=== PATIENT | male | born 1950 | race Caucasian/White ===

== ENCOUNTER 2017-01-13 05:22 | Inpatient (IN) | payer MEDICARE, OTHER ==
[2017-01-13 05:54] LABS: ADD MANUAL DIFF? NO
[2017-01-13 06:03] LABS: GRAN # 8.59 (1.4-6.5); HEMATOCRIT 39.2 % (42.0-52.0); LYMPH # 0.6 (1.2-3.4); LYMPH % 6.2 % (22.0-35.0); MEAN CELL VOLUME 93.3 fL (80.0-105.0); MEAN CORPUSCULAR HEMOGLOBIN 30.7 pg (25.0-35.0); MEAN CORPUSCULAR HGB CONC 32.9 g/dl (31.0-37.0); MEAN PLATELET VOLUME 12.8 fl (7.0-11.0); MONO % 10.1 % (1.0-6.0); PLATELET COUNT 144 10^3/uL (120.0-450.0); RED CELL DISTRIBUTION WIDTH 16.9 % (11.5-14.5); WHITE BLOOD COUNT 10.3 10^3/ul (4.5-11.0)
[2017-01-13 06:13] LABS: GRAN % 83.7 % (50.0-68.0)
--- NOTE | 2017-01-13 06:23 | ED PDOC ---
Arrival/HPI - General Historian: Patient - History of Present Illness Time/Duration: < week Severity Level: 8 Activities at Onset: Rest Context: Home <Mallory Gray - Last Filed: 01/13/17 07:08> <RoselynGuanaco Ruba - Last Filed: 01/13/17 11:28> - General Chief Complaint: Altered Mental Status Time Seen by Provider: 01/13/17 05:23 - History of Present Illness Narrative History of Present Illness (Text): 01/13/17 06:20 This is a 66Y M with PMH ESRD MWF, HTN, CAD s/p stents, HLD, DM, PUD came to ED for AMS, abdominal pain and vomiting x 2 days, The patient missed his dialysis on Monday due to the pain. His is at bedside who states the patient has been confused, having trouble finding his clothes. He complains of LUQ abdominal pain that does not radiate. He has been spitting up red tinged sputum and has nausea. He has not been able to eat for the past 2 days. He has been having chills and dysuria, but no fever, diarrhea, numbness/tingling. (Mallory Gray) Past Medical History - Provider Review Nursing Documentation Reviewed: Yes - Infectious Disease Hx of Infectious Diseases: None - Tetanus Immunization Tetanus Immunization: Unknown - Cardiac Hx Cardiac Disorders: Yes Hx Hypertension: Yes Other/Comment: stents - Pulmonary Hx Respiratory Disorders: Yes Hx Chronic Obstructive Pulmonary Disease (COPD): Yes - Neurological Hx Neurological Disorder: No - HEENT Hx HEENT Disorder: No (WEARS RX GLASSES) - Renal Hx Renal Disorder: Yes Date of Last Dialysis Treatment: 01/09/17 Hx Renal Failure: Yes - Endocrine/Metabolic Hx Endocrine Disorders: Yes Hx Diabetes Mellitus Type 2: Yes - Hematological/Oncological Hx Blood Disorders: No - Integumentary Hx Dermatological Disorder: No - Musculoskeletal/Rheumatological Hx Musculoskeletal Disorders: Yes Hx Falls: Yes Hx Unsteady Gait: Yes - Gastrointestinal Hx Gastrointestinal Disorders: Yes Hx Gastroesophageal Reflux: Yes - Genitourinary/Gynecological Hx Genitourinary Disorders: Yes (URINARY RETENTION,DYSURIA) Hx Prostate Problems: Yes (BPH) - Psychiatric Hx Emotional Abuse: No Hx Physical Abuse: No Hx Substance Use: No - Surgical History Hx Coronary Stent: Yes (X2) - Anesthesia Hx Anesthesia: Yes Hx Anesthesia Reactions: No Hx Malignant Hyperthermia: No - Suicidal Assessment Feels Threatened In Home Enviroment: No <JustinkevinDarshan rollinsMallory - Last Filed: 01/13/17 07:08> Family/Social History - Physician Review Nursing Documentation Reviewed: Yes Family/Social History: Hypertension Smoking Status: Former Smoker Hx Alcohol Use: No Hx Substance Use: No Hx Substance Use Treatment: No <Mallory Gray - Last Filed: 01/13/17 07:08> Allergies/Home Meds <Mallory Gray - Last Filed: 01/13/17 07:08> <RoselynGuanaco Ruba - Last Filed: 01/13/17 11:28> Allergies/Adverse Reactions: Allergies No Known Allergies Allergy (Verified 11/23/16 11:17) Home Medications: Home Meds Medication Instructions Recorded Confirmed Albuterol Sulfate [Albuterol Hfa] 0.09 mg IH QID 10/22/13 01/13/17 clonazePAM [Klonopin] 0.5 mg PO BID 08/18/14 01/13/17 Aspirin [Aspirin EC] 81 mg PO DAILY 11/27/14 01/13/17 Carvedilol [Coreg] 25 mg PO BID 11/27/14 01/13/17 Insulin Detemir [Levemir] 40 units SC HS 11/27/14 01/13/17 Isosorbide Mononitrate [Imdur] 60 mg PO DAILY 11/27/14 01/13/17 Tiotropium [Spiriva] 18 mcg IH DAILY 03/23/15 01/13/17 Lisinopril [Zestril] 20 mg PO DAILY 05/26/16 01/13/17 Calcium Acetate [Phoslo] 667 mg PO BID 06/29/16 01/13/17 Fluoxetine HCl [Fluoxetine HCl] 20 mg PO BID 06/29/16 01/13/17 Omeprazole [Omeprazole] 20 mg PO DAILY 06/29/16 01/13/17 Review of Systems - Physician Review All systems were reviewed & negative as marked: Yes - Review of Systems Constitutional: Other. absent: Fevers Eyes: Normal. absent: Vision Changes Respiratory: Normal. absent: SOB, Cough Cardiovascular: Normal. absent: Chest Pain, Palpitations Gastrointestinal: Abdominal Pain, Constipation, Nausea, Vomiting. absent: Diarrhea, Hematochezia, Hematemesis Genitourinary Male: Dysuria. absent: Frequency, Hematuria Musculoskeletal: Normal Skin: Normal Neurological: Normal. absent: Headache, Dizziness Endocrine: Normal Hemo/Lymphatic: Normal Psychiatric: Normal <Mallory Gray - Last Filed: 01/13/17 07:08> Physical Exam Vital Signs Reviewed: Yes Temperature: Afebrile Blood Pressure: Normal Pulse: Regular Respiratory Rate: Normal Appearance: Positive for: Well-Appearing, Non-Toxic, Comfortable Pain Distress: None Mental Status: Positive for: other (A&Ox2) - Systems Exam Head: Present: Atraumatic, Normocephalic Pupils: Present: PERRL Extroacular Muscles: Present: EOMI Conjunctiva: Present: Normal Mouth: Present: Moist Mucous Membranes Neck: Present: Normal Range of Motion Respiratory/Chest: Present: Clear to Auscultation, Good Air Exchange. No: Respiratory Distress, Accessory Muscle Use Cardiovascular: Present: Regular Rate and Rhythm, Normal S1, S2. No: Murmurs Abdomen: Present: Tenderness, Normal Bowel Sounds. No: Distention, Peritoneal Signs Back: Present: Normal Inspection Upper Extremity: Present: Normal Inspection. No: Cyanosis, Edema Lower Extremity: Present: Edema Neurological: Present: GCS=15, CN II-XII Intact, Speech Normal Skin: Present: Warm, Dry, Normal Color. No: Rashes Psychiatric: Present: Alert, Oriented x 3, Normal Insight, Normal Concentration <Mallory Gray - Last Filed: 01/13/17 07:08> Medical Decision Making Re-evaluation Time: 06:45 Reassessment Condition: Improved - EKG Interpretation Interpreted by ED Physician: Yes Type: 12 lead EKG - Transfer of Care Patient signed out to Dr:: Dr. Dempsey Pending Labs:: CMP, ammonia, lipase <Mallory Gray - Last Filed: 01/13/17 07:08> <Guanaco Dempsey - Last Filed: 01/13/17 11:28> ED Course and Treatment: 01/13/17 06:39 Impression: This is a 66Y M with PMH HTN, DM, CAD s/p stents, ESRD on MWF came to ED for AMS , LUQ abdominal pain and nausea. Patient noted to have blood tinged clear vomit. He missed dialysis on Monday and his reports he has been confused. He is noted to be A&O x 3. Differential Diagnosis: -- Peptic ulcer, uremia, gastritis Plan: -- CBC, CMP, Ammonia, Lipase, U/A, Urine Culture -- CXR -- Reglan -- Reassess and disposition Prior Visits: Notes and results from previous visits were reviewed. Progress Note: Patient was given Reglan. Now pain and nausea have improved. (Mallory Gray) Patient was signed out to me at change of shift pending labs and hemodialysis at 10am. Liver enzymes returned markedly elevated and elevated lipase, will send for abdominal US. Ordered Zosyn. 01/13/17 09:20 Chest X-ray: Creator : Aman Singletary MD FINDINGS: LUNGS:No active pulmonary disease. PLEURA:No significant pleural effusion identified, no pneumothorax apparent. CARDIOVASCULAR:Normal. OSSEOUS STRUCTURES:No significant abnormalities. VISUALIZED UPPER ABDOMEN:Normal. OTHER FINDINGS:None. IMPRESSION: No active disease. 01/13/17 09:30 Abdominal Ultrasound: Creator : Tej Dubon MD FINDINGS: LIVER: Measures 15.1 cm. Hepatopedal blood flow. Fatty infiltration manifest ultrasonographically as increased echogenicity of the liver parenchyma. No mass. No intrahepatic bile duct dilatation. GALLBLADDER:Unremarkable. No gallstones. COMMON BILE DUCT:Measures 5.8 mm. No stones. No dilatation. PANCREAS:Unremarkable as visualized. No mass. No ductal dilatation. RIGHT KIDNEY:Measures 3.1 x 7.1cm. Atrophic right kidney unchanged compared to the prior study. LEFT KIDNEY:Measures 3.7 x 6.6cm. Atrophic left kidney unchanged compared the prior study. SPLEEN:Normal in size and contour. No mass. AORTA:No aneurysmal dilatation. IVC:Unremarkable. OTHER FINDINGS:None. IMPRESSION: No acute findings related to/accounting for the clinical presentation. No significant interval change compared to the prior examination(s). Additional benign and/or incidental findings described above. Reviewed EKG shows, peaked T waves compared to previous EKG. Also with prolonged QTc and VT interval, ordered multiple medications for hyperkalemia. Prior to patient receiving, patient was ready to go to dialysis so will forego medications for dialysis, more definitive treatment for hyperkalemia. Provided Zosyn to dialysis unit to give with dialysis. Paged Dr. Agarwal for admission. 01/13/17 11:26 Dr. Agarwal accepts admission, recommends Dr. Tian for surgical consult for lab findings. Consult placed. Patient currently in dialysis unit. (Guanaco Dempsey) - Lab Interpretations Lab Results: 01/13/17 05:40 01/13/17 05:40 Lab Results 01/13/17 06:40: Ammonia 22 01/13/17 05:40: Sodium 135, Potassium 6.9 H* D, Chloride 88 L, Carbon Dioxide 16 L, Anion Gap 38 H, BUN 142 H*, Creatinine 11.8 H*, Est GFR ( Amer) 5, Est GFR (Non-Af Amer) 4, Random Glucose 156 H, Calcium 7.9 L, Total Bilirubin 2.4 H, AST 1963 H, ALT 2624 H, Alkaline Phosphatase 159 H, Total Protein 7.7, Albumin 4.2, Globulin 3.5, Albumin/Globulin Ratio 1.2, Lipase 2410 H 01/13/17 05:40: WBC 10.3 D, RBC 4.20, Hgb 12.9 L, Hct 39.2 L, MCV 93.3, MCH 30.7, MCHC 32.9, RDW 16.9 H, Plt Count 144, MPV 12.8 H, Gran % 83.7 H, Lymph % ( Auto) 6.2 L, [place] % (Auto) 10.1 H, Eos % (Auto) 0.0 L, Baso % (Auto) 0.0, Gran # 8.59 H, Lymph # 0.6 L, [place] # 1.0 H, Eos # 0.0, Baso # 0.00 - RAD Interpretation Radiology Orders: 01/13/17 05:56 CHEST PORTABLE [RAD] Stat 01/13/17 08:40 ABDOMEN COMPLETE [US] Stat - EKG Interpretation EKG Interpretation (Text): 01/13/17 06:45 HR 76. VT >200. First degree AV block. L axis deviation. RBBB. Prolonged QTc ( Bortcosh,Mallory) - Medication Orders Current Medication Orders: Discontinued Medications Calcium Gluconate (Calcium Gluconate Iv) 1,000 mg IVP ONCE ONE Stop: 01/13/17 08:49 Last Admin: 01/13/17 09:00 Dose: Not Given Non-Admin Reason: Patient in Dialysis Dextrose (Dextrose 50% Inj) 50 ml IVP STAT STA Stop: 01/13/17 08:49 Last Admin: 01/13/17 09:00 Dose: Not Given Non-Admin Reason: Patient in Dialysis Piperacillin Sod/Tazobactam Sod (Zosyn 4.5 Gm In Ns 100ml) 4.5 gm in 100 mls @ 200 mls/hr IVPB STAT STA PRN Reason: Protocol Stop: 01/13/17 09:23 Last Admin: 01/13/17 09:00 Dose: Not Given Non-Admin Reason: Patient in Dialysis Insulin Human Regular (Humulin R) 7 units IVP STAT STA Stop: 01/13/17 08:49 Last Admin: 01/13/17 09:00 Dose: Not Given Non-Admin Reason: Patient in Dialysis Metoclopramide HCl (Reglan) 10 mg IVP STAT STA Stop: 01/13/17 05:50 Last Admin: 01/13/17 06:10 Dose: 10 mg Metoclopramide HCl (Reglan) Confirm Administered Dose 10 mg .ROUTE .STK-MED ONE Stop: 01/13/17 06:11 Sodium Bicarbonate (Sodium Bicarbonate (8.4%) 50 Meq Syringe) 50 meq IVP ONCE ONE Stop: 01/13/17 08:49 Last Admin: 01/13/17 09:00 Dose: Not Given Non-Admin Reason: Patient in Dialysis Disposition/Present on Arrival - Present on Arrival Any Indicators Present on Arrival: No History of DVT/PE: No History of Uncontrolled Diabetes: No Urinary Catheter: No History of Decub. Ulcer: No History Surgical Site Infection Following: None - Disposition Have Diagnosis and Disposition been Completed?: No Disposition Time: 07:00 <Mallory Gray - Last Filed: 01/13/17 07:08> - Disposition Have Diagnosis and Disposition been Completed?: Yes Disposition Time: 09:30 Patient Plan: Admission <Guanaco Dempsey - Last Filed: 01/13/17 11:28> - Disposition Diagnosis: Pancreatitis, Transaminitis, Hyperkalemia Disposition: HOSPITALIZED Patient Problems: Current Active Problems Problem Status Onset Abdominal pain Acute Condition: GUARDED
[2017-01-13 06:26] LABS: ALB/GLOB RATIO 1.2 (1.1-1.8); BILIRUBIN,TOTAL 2.4 mg/dL (0.2-1.3); CALCIUM 7.9 mg/dL (8.4-10.5); TOTAL PROTEIN 7.7 g/dL (5.8-8.3)
[2017-01-13 08:15] LABS: POTASSIUM 6.9 mmol/L (3.6-5.0)
[2017-01-13] MEDS ORDERED: Dextrose 50% SYRINGE Inj (50 ml) IVP STA (08:48)
[2017-01-13] MEDS ORDERED: Sodium Bicarbonate (8.4%) 50 Meq Syringe IVP ONE (08:48)
[2017-01-13] MEDS ORDERED: Insulin Regular 1 UNITS/0.01 ML ML IVP STA (08:48)
[2017-01-13] MEDS: Piperacill/Tazo 4.5gm in NS 4.5 GM/100 ML BAG IVPB STA ×2 (09:00→15:52)
--- NOTE | 2017-01-13 09:11 | RAD ---
HISTORY: r/o infiltrate COMPARISON: 11/15/2016 FINDINGS: LUNGS: No active pulmonary disease. PLEURA: No significant pleural effusion identified, no pneumothorax apparent. CARDIOVASCULAR: Normal. OSSEOUS STRUCTURES: No significant abnormalities. VISUALIZED UPPER ABDOMEN: Normal. OTHER FINDINGS: None. IMPRESSION: No active disease.
--- NOTE | 2017-01-13 09:22 | US ---
HISTORY: abdominal pain, elevated AST/lipase COMPARISON: 05/23/2016. TECHNIQUE: Sonographic evaluation of the abdomen. FINDINGS: LIVER: Measures 15.1 cm. Hepatopedal blood flow. Fatty infiltration manifest ultrasonographically as increased echogenicity of the liver parenchyma. No mass. No intrahepatic bile duct dilatation. GALLBLADDER: Unremarkable. No gallstones. COMMON BILE DUCT: Measures 5.8 mm. No stones. No dilatation. PANCREAS: Unremarkable as visualized. No mass. No ductal dilatation. RIGHT KIDNEY: Measures 3.1 x 7.1cm. Atrophic right kidney unchanged compared to the prior study. LEFT KIDNEY: Measures 3.7 x 6.6cm. Atrophic left kidney unchanged compared the prior study. SPLEEN: Normal in size and contour. No mass. AORTA: No aneurysmal dilatation. IVC: Unremarkable. OTHER FINDINGS: None. IMPRESSION: No acute findings related to/accounting for the clinical presentation. No significant interval change compared to the prior examination(s). Additional benign and/or incidental findings described above.
--- NOTE | 2017-01-13 13:24 | CP.PCM.CON ---
<Cary Castro - Last Filed: 01/13/17 14:12> History of Present Illness - History of Present Illness History of Present Illness: Surgery Consult: Dr. Tian 66yo M w/ PMHx of ESRD on dialysis MWF, CAD s/p stent, HTN, DM II, and chronic anemia presented with acute altered mental status and abdominal pain. Pt is a poor historian, history obtained from chart/nursing. Pt missed dialysis on Monday due to abdominal pain associated with vomiting. As per ED, patient has been nauseous and spitting up red tinged sputum for the past 2 days. Patient 's decided to bring the patient to the ED due to altered mental status. In the ER, pt was found to have elevated liver enzymes and lipase. US of the abdomen was obtained and did not show any acute pathology or gallstones. Currently, pt is alert but not oriented. Does not respond to commands appropriately. PMHx: ESRD on dialysis MWF, HTN, CAD s/p stents, HLD, diabetes type 2, PUD PSHx: L arm AV fistula Social hx: 1ppd x 30 yrs, quit 10 yrs ago, denies alcohol and illicit drug use Family hx: diabetes and dementia Allergies: NKDA Review of Systems - Review of Systems Systems not reviewed;Unavailable: Altered Mental Status Past Patient History - Infectious Disease Hx of Infectious Diseases: None - Tetanus Immunizations Tetanus Immunization: Unknown - Past Medical History & Family History Past Medical History?: Yes - Past Social History Smoking Status: Former Smoker Alcohol: None Drugs: Denies Home Situation {Lives}: With Family - CARDIAC Hx Cardiac Disorders: Yes Hx Hypertension: Yes Other/Comment: stents - PULMONARY Hx Respiratory Disorders: Yes Hx Chronic Obstructive Pulmonary Disease (COPD): Yes - NEUROLOGICAL Hx Neurological Disorder: No - HEENT Hx HEENT Problems: No (WEARS RX GLASSES) - RENAL Hx Chronic Kidney Disease: Yes Date of Last Dialysis Treatment: 01/13/17 Hx Renal Failure: Yes - ENDOCRINE/METABOLIC Hx Endocrine Disorders: Yes Hx Diabetes Mellitus Type 2: Yes - HEMATOLOGICAL/ONCOLOGICAL Hx Blood Disorders: No - INTEGUMENTARY Hx Dermatological Problems: No - MUSCULOSKELETAL/RHEUMATOLOGICAL Hx Musculoskeletal Disorders: Yes Hx Falls: Yes Hx Unsteady Gait: Yes - GASTROINTESTINAL Hx Gastrointestinal Disorders: Yes Hx Gastroesophageal Reflux: Yes - GENITOURINARY/GYNECOLOGICAL Hx Genitourinary Disorders: Yes (URINARY RETENTION,DYSURIA) Hx Prostate Problems: Yes (BPH) - PSYCHIATRIC Hx Emotional Abuse: No Hx Physical Abuse: No Hx Substance Use: No - SURGICAL HISTORY Hx Surgeries: Yes Hx Coronary Stent: Yes (X2) Hx Vascular Surgery: Yes (L arm AV fistula ) - ANESTHESIA Hx Anesthesia: Yes Hx Anesthesia Reactions: No Hx Malignant Hyperthermia: No Meds Allergies/Adverse Reactions: Allergies Allergy/AdvReac Type Severity Reaction Status Date / Time No Known Allergies Allergy Verified 01/18/17 03:27 Physical Exam - Constitutional Appears: No Acute Distress, Confused - Head Exam Head Exam: ATRAUMATIC, NORMOCEPHALIC - Eye Exam Eye Exam: Normal appearance Pupil Exam: NORMAL ACCOMODATION - ENT Exam ENT Exam: Mucous Membranes Moist - Respiratory Exam Respiratory Exam: NORMAL BREATHING PATTERN - Cardiovascular Exam Cardiovascular Exam: RRR, +S1, +S2 - GI/Abdominal Exam GI & Abdominal Exam: Normal Bowel Sounds, Soft. absent: Distended, Guarding, Tenderness - Neurological Exam Neurological exam: Alert - Psychiatric Exam Additional comments: altered mental status - Skin Skin Exam: Dry, Intact, Warm Results - Vital Signs Recent Vital Signs: Last Vital Signs Temp 97.4 F L 01/13/17 05:39 Pulse 75 01/13/17 08:02 Resp 18 01/13/17 08:02 BP 189/117 H 01/13/17 08:02 Pulse Ox 100 01/13/17 08:02 - Labs Result Diagrams: 01/13/17 05:40 01/13/17 05:40 - Imaging and Cardiology US - abdomen Status: Image reviewed by me, Report reviewed by me Assessment & Plan - Assessment and Plan (Free Text) Assessment: 66M with altered mental status, abdominal pain & elevated liver enzymes/lipase. Surgery consulted for evaluation of pancreatitis Plan: 1. Keep NPO with IVF 2. Abd U/S no acute findings related to/accounting for the clinical presentation ; will obtain CT abdomen as well 3. Emergent hemodialysis 4. d/w Dr. Jaylan Castro, PGY-2 Surgery <Broderick Tian - Last Filed: 01/24/17 08:25> Results - Vital Signs Recent Vital Signs: Last Vital Signs Temp 97.7 F 01/17/17 08:14 Pulse 80 01/17/17 09:50 Resp 20 01/17/17 08:14 BP 120/70 01/17/17 09:50 Pulse Ox 98 01/17/17 08:14 - Labs Result Diagrams: 01/16/17 06:45 01/17/17 06:55 Labs: Laboratory Results - last 24 hr 01/17/17 01/17/17 17:25 21:50 POC Glucose (mg/dL) 169 H 193 H Assessment & Plan - Assessment and Plan (Free Text) Assessment: Dx Acute Hepatic Failure(Unknown etiology) ESCRD-CKD HTCAD AMS Hyperkalemia RX Urgent dialysis Toxicity screen Family-acquaintance Interview Cardiac Enzymes stat r/o Ischemia This consult done under my direct supervision Theresa Tian MD FACS Plan: Dx Acute Hepatic failure(Unknown etiology) Chr renal failure-Chr hemodialysis AMS This consultation done under my direct supervision Theresa Tian MD FACS
--- NOTE | 2017-01-13 13:49 | CT ---
PROCEDURE: CT HEAD WITHOUT CONTRAST. HISTORY: code stroke COMPARISON: None available. TECHNIQUE: Axial computed tomography images were obtained through the head/brain without intravenous contrast. Radiation dose: Total exam DLP = 688 mGy-cm. This CT exam was performed using one or more of the following dose reduction techniques: Automated exposure control, adjustment of the mA and/or kV according to patient size, and/or use of iterative reconstruction technique. FINDINGS: HEMORRHAGE: No intracranial hemorrhage. BRAIN: No mass effect or edema. No atrophy or chronic microvascular ischemic changes. VENTRICLES: Unremarkable. No hydrocephalus. CALVARIUM: Unremarkable. PARANASAL SINUSES: Unremarkable as visualized. No significant inflammatory changes. MASTOID AIR CELLS: Unremarkable as visualized. No inflammatory changes. OTHER FINDINGS: The study was reviewed with Dr. Yan at 1:45 p.m. IMPRESSION: No acute findings
[2017-01-13 14:40] LABS: ADD MANUAL DIFF? NO
[2017-01-13 14:53] LABS: BASO # 0.01 K/mm3 (0.0-2.0); BASO % 0.1 % (0.0-3.0); EOS % 0.2 % (1.5-5.0); GRAN # 7.29 (1.4-6.5); GRAN % 80.1 % (50.0-68.0); HEMATOCRIT 37.9 % (42.0-52.0); LYMPH # 0.8 (1.2-3.4); LYMPH % 8.6 % (22.0-35.0); MEAN CORPUSCULAR HEMOGLOBIN 31.3 pg (25.0-35.0); MEAN PLATELET VOLUME 12.5 fl (7.0-11.0); PLATELET COUNT 117 10^3/uL (120.0-450.0); RED CELL DISTRIBUTION WIDTH 16.6 % (11.5-14.5); WHITE BLOOD COUNT 9.1 10^3/ul (4.5-11.0)
[2017-01-13 14:54] LABS: ALB/GLOB RATIO 1.1 (1.1-1.8); BILIRUBIN,TOTAL 2.7 mg/dL (0.2-1.3); CALCIUM 8.2 mg/dL (8.4-10.5); POTASSIUM 4.2 mmol/L (3.6-5.0); TOTAL PROTEIN 7.4 g/dL (5.8-8.3)
[2017-01-13 15:02] LABS: INR 2.4 (0.93-1.08); PARTIAL THROMBOPLASTIN TIME 33.1 Seconds (23.7-30.8)
[2017-01-13] MEDS ORDERED: Acetylcysteine 6 GM/30 ML IV IVPB ONE (15:04)
--- NOTE | 2017-01-13 15:26 | CP.PCM.PN ---
<Bernardo Tate - Last Filed: 01/13/17 15:12> Subjective - Date & Time of Evaluation Date of Evaluation: 01/13/17 Time of Evaluation: 13:20 - Subjective Subjective: S: 66M with pmh of CAD, ESRD on dialysis was finishing his session when a rapid response was called for a change in AMS. The rapid was converted to code stroke due to pt. was noted to be aphasic and unable to follow commands. Pt. was brought to ED earlier for AMS after missing his last dialysis session on Monday. He was quickly sent to dialysis and was to be admitted after his session to regular floor. Pt. is unable to convey any complaints due to his AMS. Vital signs: Temp - 98 Pulse - 96 BP 191/118 R 18 O2 99% Accuchecks 96, repeat 103 PMH: CAD w/2 stents and CABG, HLD, DM, PUD, ESRD on hemodialysis Objective - Vital Signs/Intake and Output Vital Signs (last 24 hours): Temp Pulse Resp BP Pulse Ox 97.4 F L 91 H 16 173/103 H 100 01/13/17 05:39 01/13/17 14:06 01/13/17 14:06 01/13/17 14:06 01/13/17 14:06 - Medications Medications: Current Medications Acetylcysteine (Acetadote 0.2 Gms/Ml) 10.2 gm 0.15 gm/kg (10.2 gm) IVPB ONCE ONE Stop: 01/13/17 15:05 - Labs Labs: 01/13/17 14:35 01/13/17 14:35 PT 25.9 Seconds (9.9-11.8) H 01/13/17 14:35 INR 2.40 (0.93-1.08) H 01/13/17 14:35 APTT 33.1 Seconds (23.7-30.8) H 01/13/17 14:35 - Constitutional Appears: No Acute Distress, Older Than Stated Age, Agitated, Cachectic, Chronically Ill - Head Exam Head Exam: ATRAUMATIC, NORMOCEPHALIC - Eye Exam Eye Exam: PERRL - ENT Exam ENT Exam: Mucous Membranes Moist - Neck Exam Neck Exam: Normal Inspection - Respiratory Exam Respiratory Exam: Clear to Ausculation Bilateral, NORMAL BREATHING PATTERN - Cardiovascular Exam Cardiovascular Exam: REGULAR RHYTHM, RRR. absent: JVD - GI/Abdominal Exam GI & Abdominal Exam: Soft, Normal Bowel Sounds - Extremities Exam Extremities Exam: Pedal Edema (BL) - Neurological Exam Neurological Exam: Altered, Awake (aphasic and unable to follow commands, moving all 4 limbs spontaneously) - Psychiatric Exam Psychiatric exam: Flat Affect - Skin Skin Exam: Dry, Intact, Normal Color, Warm Assessment and Plan - Assessment and Plan (Free Text) Assessment: 66M with acute aphasia 2/2 to possible CVA Plan: Elevated BP -Nitroglycerin sublingual, given prior to CT scan -BP decreased from 191/118 to 170/103 EKG stat - NSR 99bpm, slight ST depressions in leads V6-6 Code Stroke Protocol labs ordered - Troponins - CMP - Lipid Panel CT Head w/o contrast stat: - negative for acute findings Neuro Consult - Dr. Tammie Andrade -discussed with Neuro MRI w/o contrast stat -ordered -Ativan 1mg given for agitation prior to MRI <Alyse Yan - Last Filed: 01/13/17 16:53> Objective - Vital Signs/Intake and Output Vital Signs (last 24 hours): Temp Pulse Resp BP Pulse Ox 97.4 F L 68 15 168/98 H 98 01/13/17 05:39 01/13/17 15:41 01/13/17 15:41 01/13/17 15:41 01/13/17 15:41 - Medications Medications: Current Medications Acetylcysteine 10,200 mg/ (Dextrose) 251 mls @ 200 mls/hr IV .Q1H16M ONE PRN Reason: Protocol Stop: 01/13/17 17:00 - Labs Labs: 01/13/17 14:35 01/13/17 14:35 PT 25.9 Seconds (9.9-11.8) H 01/13/17 14:35 INR 2.40 (0.93-1.08) H 01/13/17 14:35 APTT 33.1 Seconds (23.7-30.8) H 01/13/17 14:35 Attending/Attestation - Attestation I have personally seen and examined this patient.: Yes I have fully participated in the care of the patient.: Yes I have reviewed all pertinent clinical information, including history, physical exam and plan: Yes Notes (Text): 01/13/17 16:24 Addendum: MRI of the brain was noted to be negative,pt was seen by Dr Bogdan andrade, was thought to have AMS due to metabolic changes. Consult was obtained with Dr Bladimir Epps(Photo Lab Technician. Pt accepted to ICU for observation.Dr Agarwal called .Message left on his cell phone. IMP:Metabolic encephalopathy PLAN: Moniter clinical condition,labs. Follow up as per orders of Dr Sydni Andrade and PMD and other consultants. 01/13/17 16:49 Critical care time spent with pt was 35 mins. NIHSS Scale ([place]) Time Performed: 13:23 - How Severe is the [place]oke Baseline Level of Consciousness: 0=Alert LOC to Questions: 2=Neither correct LOC to commands: 2=Neither correct Best Gaze: 2=Forced deviation Visual: 2=Complete hemianopia Facial: 0=Normal Motor Arm - Left: 1=Drift noted before 10 sec Motor Arm - Right: 1=Drift noted before 10 sec Motor Leg - Left: 1=Drift before 5 sec Motor Leg - Right: 1=Drift before 5 sec Limb Ataxia: 2=Present both Sensory: 2=Severe to total loss Best Language: 2=Severe aphasia Dysarthia: 2=Severe, near unintelligible or worse Extinction & Inattention (Neglect): 2=Profound neglect(does not recognize own hand or orients to one side) Score: 22 Risk Level: Severe Stroke Risk
[2017-01-13] MEDS ORDERED: WATER IVPB ONE (15:30)
[2017-01-13] MEDS ORDERED: DEXTROSE 5% IVPB ONE (15:30)
[2017-01-13] MEDS ORDERED: ACETYLCYSTEINE IVPB ONE (15:30)
--- NOTE | 2017-01-13 15:36 | MRI ---
PROCEDURE: MRI BRAIN WITHOUT CONTRAST HISTORY: code stroke COMPARISON: None. TECHNIQUE: Multiplanar, multisequence MR images of the brain were obtained without intravenous contrast enhancement. FINDINGS: HEMORRHAGE: None DWI: No evidence of an acute or early subacute infarction. BRAIN PARENCHYMA: No mass effect or edema. No atrophy or chronic microvascular ischemic changes. VENTRICLES: Unremarkable. No hydrocephalus. CRANIUM: Unremarkable. ORBITS: Grossly unremarkable. PARANASAL SINUSES/MASTOIDS: Clear VASCULAR SYSTEM: Skull base flow voids intact. OTHER FINDINGS: None. IMPRESSION: Unremarkable non contrast enhanced MRI of the brain.
[2017-01-13] MEDS ORDERED: DEXTROSE 5% IV ONE (15:45)
[2017-01-13] MEDS ORDERED: ACETYLCYSTEINE IV ONE (15:45)
[2017-01-13] MEDS ORDERED: WATER IV ONE (15:45)
--- NOTE | 2017-01-13 15:45 | CT ---
PROCEDURE: CT Abdomen and Pelvis without intravenous contrast HISTORY: abdominal pain, ams, elevated LFTs COMPARISON: 05/23/2016 TECHNIQUE: Without contrast. Contrast Dose: Radiation dose: Total exam DLP = 367 mGy-cm. This CT exam was performed using one or more of the following dose reduction techniques: Automated exposure control, adjustment of the mA and/or kV according to patient size, and/or use of iterative reconstruction technique. FINDINGS: LOWER THORAX: Unremarkable. LIVER: Unremarkable. No gross lesion or ductal dilatation. GALLBLADDER AND BILE DUCTS: Unremarkable. PANCREAS: Unremarkable. No gross lesion or ductal dilatation. SPLEEN: Unremarkable. ADRENALS: Unremarkable. No mass. KIDNEYS AND URETERS: Unremarkable. No hydronephrosis. No solid mass. VASCULATURE: Unremarkable. No aortic aneurysm. There is calcification and mild dilatation of the abdominal aorta BOWEL: Unremarkable. No obstruction. No gross mural thickening. APPENDIX: Unremarkable. Normal appendix. PERITONEUM: Unremarkable. No free fluid. No free air. LYMPH NODES: Unremarkable. No enlarged lymph nodes. BLADDER: Unremarkable. REPRODUCTIVE: Unremarkable. BONES: No acute fracture. OTHER FINDINGS: None. IMPRESSION: No acute intra-abdominal findings
[2017-01-13 15:54] LABS: TROPONIN I 0.64 ng/mL
--- NOTE | 2017-01-13 17:19 | CP.PCM.CON ---
<Praneeth Mitchell - Last Filed: 01/13/17 17:22> History of Present Illness - History of Present Illness History of Present Illness: GI consult for Dr. Gaytan 66yo M w/ PMHx of gastric ulcer, gastritis, esophagitis ,ESRD on dialysis MWF, CAD s/p stent, HTN, DM II, and chronic anemia presented with acute altered mental status and abdominal pain. Pt is a poor historian, history obtained from chart/nursing. Pt missed dialysis on Monday due to abdominal pain associated with vomiting. Pt didn't feel well and skipped his dialysis session. As per ED, patient has been nauseous and spitting up red tinged sputum for the past 2 days. Patient's decided to bring the patient to the ED due to altered mental status. In the ER, pt was found to have elevated liver enzymes and lipase. US of the abdomen was obtained and did not show any acute pathology or gallstones. Currently, CT a/p showed artherosclerosis throughout and hepatomegaly. Acetominophen level was wnl. pt is alert but not oriented. Does not respond to commands appropriately. PMHx: ESRD on dialysis MWF, HTN, CAD s/p stents, HLD, diabetes type 2, PUD PSHx: L arm AV fistula EGD 05/13: gastritis, esophagitis Social hx: 1ppd x 30 yrs, quit 10 yrs ago, denies alcohol and illicit drug use Family hx: diabetes and dementia Review of Systems - Review of Systems Systems not reviewed;Unavailable: Altered Mental Status Past Patient History - Infectious Disease Hx of Infectious Diseases: None - Tetanus Immunizations Tetanus Immunization: Unknown - Past Medical History & Family History Past Medical History?: Yes - Past Social History Smoking Status: Former Smoker Alcohol: None Drugs: Denies Home Situation {Lives}: With Family - CARDIAC Hx Cardiac Disorders: Yes Hx Hypertension: Yes Other/Comment: stents - PULMONARY Hx Respiratory Disorders: Yes Hx Chronic Obstructive Pulmonary Disease (COPD): Yes - NEUROLOGICAL Hx Neurological Disorder: No - HEENT Hx HEENT Problems: No (WEARS RX GLASSES) - RENAL Hx Chronic Kidney Disease: Yes Date of Last Dialysis Treatment: 01/13/17 Hx Renal Failure: Yes - ENDOCRINE/METABOLIC Hx Endocrine Disorders: Yes Hx Diabetes Mellitus Type 2: Yes - HEMATOLOGICAL/ONCOLOGICAL Hx Blood Disorders: No - INTEGUMENTARY Hx Dermatological Problems: No - MUSCULOSKELETAL/RHEUMATOLOGICAL Hx Musculoskeletal Disorders: Yes Hx Falls: Yes Hx Unsteady Gait: Yes - GASTROINTESTINAL Hx Gastrointestinal Disorders: Yes Hx Gastroesophageal Reflux: Yes - GENITOURINARY/GYNECOLOGICAL Hx Genitourinary Disorders: Yes (URINARY RETENTION,DYSURIA) Hx Prostate Problems: Yes (BPH) - PSYCHIATRIC Hx Emotional Abuse: No Hx Physical Abuse: No Hx Substance Use: No - SURGICAL HISTORY Hx Surgeries: Yes Hx Coronary Stent: Yes (X2) Hx Vascular Surgery: Yes (L arm AV fistula ) - ANESTHESIA Hx Anesthesia: Yes Hx Anesthesia Reactions: No Hx Malignant Hyperthermia: No Meds Allergies/Adverse Reactions: Allergies Allergy/AdvReac Type Severity Reaction Status Date / Time No Known Allergies Allergy Verified 11/23/16 11:17 Physical Exam - Constitutional Appears: Unkempt, Chronically Ill - Head Exam Head Exam: ATRAUMATIC, NORMAL INSPECTION, NORMOCEPHALIC - Eye Exam Eye Exam: EOMI, Normal appearance, PERRL Pupil Exam: NORMAL ACCOMODATION, PERRL - ENT Exam ENT Exam: Mucous Membranes Moist - Neck Exam Neck exam: Positive for: Normal Inspection - Respiratory Exam Respiratory Exam: NORMAL BREATHING PATTERN - Cardiovascular Exam Cardiovascular Exam: REGULAR RHYTHM - GI/Abdominal Exam GI & Abdominal Exam: Soft, Tenderness. absent: Distended, Firm, Guarding, Hernia, Mass, Pulsatile Mass, Rebound, Rigid - Skin Skin Exam: Dry, Intact, Normal Color, Warm Results - Vital Signs Recent Vital Signs: Last Vital Signs Temp 97.4 F L 01/13/17 05:39 Pulse 90 01/13/17 16:42 Resp 16 01/13/17 16:42 BP 163/94 H 01/13/17 16:42 Pulse Ox 98 01/13/17 16:42 - Labs Result Diagrams: 01/13/17 14:35 01/13/17 14:35 Labs: Laboratory Results - last 24 hr 01/13/17 01/13/17 01/13/17 14:35 14:35 14:35 WBC 9.1 RBC 4.12 Hgb 12.9 L Hct 37.9 L MCV 92.0 MCH 31.3 MCHC 34.0 RDW 16.6 H Plt Count 117 L MPV 12.5 H Gran % 80.1 H Lymph % (Auto) 8.6 L [place] % (Auto) 11.0 H Eos % (Auto) 0.2 L Baso % (Auto) 0.1 Gran # 7.29 H Lymph # 0.8 L [place] # 1.0 H Eos # 0.0 Baso # 0.01 PT 25.9 H INR 2.40 H APTT 33.1 H Sodium 137 Potassium 4.2 Chloride 94 L Carbon Dioxide 23 Anion Gap 24 H BUN 48 H Creatinine 5.1 H Est GFR ( Amer) 14 Est GFR (Non-Af Amer) 11 Random Glucose 91 Calcium 8.2 L Total Bilirubin 2.7 H AST 1551 H ALT 2507 H Alkaline Phosphatase 168 H Lactate Dehydrogenase 3374 H Total Creatine Kinase 192 Troponin I 0.64 H* D Total Protein 7.4 Albumin 3.8 Globulin 3.5 Albumin/Globulin Ratio 1.1 Triglycerides 178 H Cholesterol 163 LDL Cholesterol Direct 62 HDL Cholesterol 34 Salicylates Acetaminophen 01/13/17 14:35 WBC RBC Hgb Hct MCV MCH MCHC RDW Plt Count MPV Gran % Lymph % (Auto) [place] % (Auto) Eos % (Auto) Baso % (Auto) Gran # Lymph # [place] # Eos # Baso # PT INR APTT Sodium Potassium Chloride Carbon Dioxide Anion Gap BUN Creatinine Est GFR ( Amer) Est GFR (Non-Af Amer) Random Glucose Calcium Total Bilirubin AST ALT Alkaline Phosphatase Lactate Dehydrogenase Total Creatine Kinase Troponin I Total Protein Albumin Globulin Albumin/Globulin Ratio Triglycerides Cholesterol LDL Cholesterol Direct HDL Cholesterol Salicylates < 1 L Acetaminophen < 10.0 L Assessment & Plan - Assessment and Plan (Free Text) Assessment: 66 M w PMH gastritis, gastric ulcer, esphagitis, ESRD on HD, DM, CAD came with abd pain /N/V/AMS. MELD score: 33. 52 % 3mo mortality rate LDH: 3300 tbil 2.7 [id number] ALT 2700 LIpase 2400 Acetaminophen <10 Ammonia 22 Trop 0.64 US abd: fatty liver , no gall stones CT: artherosclerosis, hepatomegaly . reviewed. Acute liver injury unknown etiology DDX: Viral hepatitis, drug induced, ischemic Hepatic encephalitis -Lactulose -Da Silva culture -Acetlecystein -f/u Hep panel -Monitor labs -ICU management -Order abd doppler to evaluate portal vein and hepatic vein -We will follow closely DW Dr. Gaytan <Fawn Gaytan V - Last Filed: 01/14/17 00:47> Meds - Medications Medications: Current Medications Metoprolol Tartrate (Lopressor) 5 mg IVP Q6 PRN PRN Reason: Systolic Blood Pressure Last Admin: 01/13/17 20:58 Dose: 5 mg Results - Vital Signs Recent Vital Signs: Last Vital Signs Temp 97 F L 01/13/17 22:15 Pulse 93 H 01/13/17 22:15 Resp 16 01/13/17 22:15 BP 142/74 01/13/17 22:15 Pulse Ox 97 01/13/17 21:34 - Labs Result Diagrams: 01/13/17 14:35 01/13/17 20:42 Labs: Laboratory Results - last 24 hr 01/13/17 01/13/17 01/13/17 14:35 14:35 14:35 WBC 9.1 RBC 4.12 Hgb 12.9 L Hct 37.9 L MCV 92.0 MCH 31.3 MCHC 34.0 RDW 16.6 H Plt Count 117 L MPV 12.5 H Gran % 80.1 H Lymph % (Auto) 8.6 L [place] % (Auto) 11.0 H Eos % (Auto) 0.2 L Baso % (Auto) 0.1 Gran # 7.29 H Lymph # 0.8 L [place] # 1.0 H Eos # 0.0 Baso # 0.01 PT 25.9 H INR 2.40 H APTT 33.1 H Sodium 137 Potassium 4.2 Chloride 94 L Carbon Dioxide 23 Anion Gap 24 H BUN 48 H Creatinine 5.1 H Est GFR ( Amer) 14 Est GFR (Non-Af Amer) 11 Random Glucose 91 Calcium 8.2 L Total Bilirubin 2.7 H AST 1551 H ALT 2507 H Alkaline Phosphatase 168 H Lactate Dehydrogenase 3374 H Total Creatine Kinase 192 Troponin I 0.64 H* D Total Protein 7.4 Albumin 3.8 Globulin 3.5 Albumin/Globulin Ratio 1.1 Triglycerides 178 H Cholesterol 163 LDL Cholesterol Direct 62 HDL Cholesterol 34 Salicylates Acetaminophen Alcohol, Quantitative 01/13/17 01/13/17 01/13/17 14:35 14:35 20:42 WBC RBC Hgb Hct MCV MCH MCHC RDW Plt Count MPV Gran % Lymph % (Auto) [place] % (Auto) Eos % (Auto) Baso % (Auto) Gran # Lymph # [place] # Eos # Baso # PT INR APTT Sodium 137 Potassium 4.5 Chloride 93 L Carbon Dioxide 23 Anion Gap 26 H BUN 54 H Creatinine 5.9 H Est GFR ( Amer) 12 Est GFR (Non-Af Amer) 10 Random Glucose 125 H Calcium 8.0 L Total Bilirubin 2.7 H AST 1201 H ALT 2180 H Alkaline Phosphatase 114 Lactate Dehydrogenase Total Creatine Kinase Troponin I Total Protein 6.4 Albumin 3.5 Globulin 2.9 Albumin/Globulin Ratio 1.2 Triglycerides Cholesterol LDL Cholesterol Direct HDL Cholesterol Salicylates < 1 L Acetaminophen < 10.0 L Alcohol, Quantitative < 10 Assessment & Plan - Assessment and Plan (Free Text) Assessment: This is an adendum to GI consultation report dictated by Dr. Mitchell, resident. The patient was seen and evaluated earler. Imaging studies and previous workup were reviewed. 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 Da Silva culture Will follow closely - Date & Time Date: 01/13/17 Time: 17:30
--- NOTE | 2017-01-13 18:23 | CP.PCM.CON ---
History of Present Illness - History of Present Illness History of Present Illness: ICU consult note for Dr. Epps Consult reason: AMS and severe transaminitis Patient obtunded at time of exam and no family was present so history is taken from the chart Patient is a 66 M with extensive PMH including ESRD on HD, CAD with stents, DM, PUD, and HTN who presented to the ER with altered mental status. Patient had been experiencing abdominal pain, nausea, and vomiting for 2 days and so did not go to dialysis on Monday. Today patient's noticed he was confused and very slow moving, having difficulty with basic tasks of living. She also reported red-tinged sputum today. In the ER patient was lethargic, afebrile, normocardic, hypertensive, and not hypoxic, but was found to have transaminitis with BR fo 2.4, AST of 1963, AST of 2624. Patient also had severe hyperkalemia, and Cr of 11.8 and lipase of 2410. WBC was wnl. CT and MRI of the brain were negative for any acute pathology, and abdominal US and CT abdomen and pelvis did not reveal and acute pathology. Patient was given ativan and sent to dialysis. PMH: ESRD, HTN, CAD s/p stents, HLD, DM, PUD, BPH PSH: L AVF, EGD 05/13: gastritis/esophagitis All: NKDA Social: 30pack year smoker quit 10 years ago, denies ETOH or illicit drug use, lives at home with family Review of Systems - Review of Systems Systems not reviewed;Unavailable: Altered Mental Status Past Patient History - Infectious Disease Hx of Infectious Diseases: None - Tetanus Immunizations Tetanus Immunization: Unknown - Past Medical History & Family History Past Medical History?: Yes - Past Social History Smoking Status: Former Smoker Alcohol: None Drugs: Denies Home Situation {Lives}: With Family - CARDIAC Hx Cardiac Disorders: Yes Hx Hypertension: Yes Other/Comment: stents - PULMONARY Hx Respiratory Disorders: Yes Hx Chronic Obstructive Pulmonary Disease (COPD): Yes - NEUROLOGICAL Hx Neurological Disorder: No - HEENT Hx HEENT Problems: No (WEARS RX GLASSES) - RENAL Hx Chronic Kidney Disease: Yes Date of Last Dialysis Treatment: 01/13/17 Hx Renal Failure: Yes - ENDOCRINE/METABOLIC Hx Endocrine Disorders: Yes Hx Diabetes Mellitus Type 2: Yes - HEMATOLOGICAL/ONCOLOGICAL Hx Blood Disorders: No - INTEGUMENTARY Hx Dermatological Problems: No - MUSCULOSKELETAL/RHEUMATOLOGICAL Hx Musculoskeletal Disorders: Yes Hx Falls: Yes Hx Unsteady Gait: Yes - GASTROINTESTINAL Hx Gastrointestinal Disorders: Yes Hx Gastroesophageal Reflux: Yes - GENITOURINARY/GYNECOLOGICAL Hx Genitourinary Disorders: Yes (URINARY RETENTION,DYSURIA) Hx Prostate Problems: Yes (BPH) - PSYCHIATRIC Hx Emotional Abuse: No Hx Physical Abuse: No Hx Substance Use: No - SURGICAL HISTORY Hx Surgeries: Yes Hx Coronary Stent: Yes (X2) Hx Vascular Surgery: Yes (L arm AV fistula ) - ANESTHESIA Hx Anesthesia: Yes Hx Anesthesia Reactions: No Hx Malignant Hyperthermia: No Meds Allergies/Adverse Reactions: Allergies Allergy/AdvReac Type Severity Reaction Status Date / Time No Known Allergies Allergy Verified 11/23/16 11:17 Physical Exam - Constitutional Appears: Well, Non-toxic, No Acute Distress - Head Exam Head Exam: ATRAUMATIC, NORMOCEPHALIC - Eye Exam Eye Exam: Normal appearance. absent: Conjunctival injection, Scleral icterus Additional comments: limited exam due to AMS - ENT Exam ENT Exam: Mucous Membranes Moist - Neck Exam Neck exam: Positive for: Full Rom, Normal Inspection. Negative for: Tenderness - Respiratory Exam Respiratory Exam: Rhonchi (diffuse), Wheezes, NORMAL BREATHING PATTERN. absent : Accessory Muscle Use, Clear to Auscultation Bilateral, Respiratory Distress - Cardiovascular Exam Cardiovascular Exam: RRR, +S1, +S2. absent: Bradycardia, Tachycardia, Diastolic murmur, Systolic Murmur - GI/Abdominal Exam GI & Abdominal Exam: Soft. absent: Distended, Mass, Organomegaly, Tenderness - Rectal Exam Additional comments: normal external inspection - Extremities Exam Extremities exam: Positive for: pedal pulses present. Negative for: calf tenderness, pedal edema - Back Exam Back exam: NORMAL INSPECTION. absent: CVA tenderness (L), CVA tenderness (R), muscle spasm, paraspinal tenderness, rash noted, vertebral tenderness - Neurological Exam Neurological exam: Altered (Patient opens eyes and focuses with repetitive verbal and tactile stimuli) Additional comments: obtunded, recently received ativan but has purposeful movements - Psychiatric Exam Additional comments: uable to asses d/t mental status - Skin Skin Exam: Dry, Intact, Normal Color, Warm Results - Vital Signs Recent Vital Signs: Last Vital Signs Temp 97.4 F L 01/13/17 05:39 Pulse 93 H 01/13/17 18:03 Resp 16 01/13/17 18:03 BP 142/74 01/13/17 18:03 Pulse Ox 99 01/13/17 18:03 - Labs Result Diagrams: 01/13/17 14:35 01/13/17 14:35 Labs: Laboratory Results - last 24 hr 01/13/17 01/13/17 01/13/17 14:35 14:35 14:35 WBC 9.1 RBC 4.12 Hgb 12.9 L Hct 37.9 L MCV 92.0 MCH 31.3 MCHC 34.0 RDW 16.6 H Plt Count 117 L MPV 12.5 H Gran % 80.1 H Lymph % (Auto) 8.[address] [place] % (Auto) 11.0 H Eos % (Auto) 0.2 L Baso % (Auto) 0.1 Gran # 7.29 H Lymph # 0.[address] [place] # 1.0 H Eos # 0.0 Baso # 0.01 PT 25.9 H INR 2.40 H APTT 33.1 H Sodium 137 Potassium 4.2 Chloride 94 L Carbon Dioxide 23 Anion Gap 24 H BUN 48 H Creatinine 5.1 H Est GFR ( Amer) 14 Est GFR (Non-Af Amer) 11 Random Glucose 91 Calcium 8.2 L Total Bilirubin 2.7 H AST 1551 H ALT 2507 H Alkaline Phosphatase 168 H Lactate Dehydrogenase 3374 H Total Creatine Kinase 192 Troponin I 0.64 H* D Total Protein 7.4 Albumin 3.8 Globulin 3.5 Albumin/Globulin Ratio 1.1 Triglycerides 178 H Cholesterol 163 LDL Cholesterol Direct 62 HDL Cholesterol 34 Salicylates Acetaminophen 01/13/17 14:35 WBC RBC Hgb Hct MCV MCH MCHC RDW Plt Count MPV Gran % Lymph % (Auto) [place] % (Auto) Eos % (Auto) Baso % (Auto) Gran # Lymph # [place] # Eos # Baso # PT INR APTT Sodium Potassium Chloride Carbon Dioxide Anion Gap BUN Creatinine Est GFR ( Amer) Est GFR (Non-Af Amer) Random Glucose Calcium Total Bilirubin AST ALT Alkaline Phosphatase Lactate Dehydrogenase Total Creatine Kinase Troponin I Total Protein Albumin Globulin Albumin/Globulin Ratio Triglycerides Cholesterol LDL Cholesterol Direct HDL Cholesterol Salicylates < 1 L Acetaminophen < 10.0 L Assessment & Plan - Assessment and Plan (Free Text) Assessment: 66M
--- NOTE | 2017-01-13 18:29 | CP.PCM.CON ---
History of Present Illness - History of Present Illness History of Present Illness: 66 y/o M i was consulted fo rin the ER due to AMS on unknown cause. He apparently was in the ER over 12 hrs and was thought ot have ams from Uremia. Post HD he ws seen to be more lethargic and CODA stroke was called. CT head neg for CVA but patient received Ativan for the scan and mental status was difficult to determine. Vitals were wnl, although in HD was seen to be high sb p 180. Currently in the ER , protecting airway and spont opening eyes but not following commands. Review of Systems - Review of Systems Systems not reviewed;Unavailable: Altered Mental Status Past Patient History - Infectious Disease Hx of Infectious Diseases: None - Tetanus Immunizations Tetanus Immunization: Unknown - Past Medical History & Family History Past Medical History?: Yes - Past Social History Smoking Status: Former Smoker Alcohol: None Drugs: Denies Home Situation {Lives}: With Family - CARDIAC Hx Cardiac Disorders: Yes Hx Hypertension: Yes Other/Comment: stents - PULMONARY Hx Respiratory Disorders: Yes Hx Chronic Obstructive Pulmonary Disease (COPD): Yes - NEUROLOGICAL Hx Neurological Disorder: No - HEENT Hx HEENT Problems: No (WEARS RX GLASSES) - RENAL Hx Chronic Kidney Disease: Yes Date of Last Dialysis Treatment: 01/13/17 Hx Renal Failure: Yes - ENDOCRINE/METABOLIC Hx Endocrine Disorders: Yes Hx Diabetes Mellitus Type 2: Yes - HEMATOLOGICAL/ONCOLOGICAL Hx Blood Disorders: No - INTEGUMENTARY Hx Dermatological Problems: No - MUSCULOSKELETAL/RHEUMATOLOGICAL Hx Musculoskeletal Disorders: Yes Hx Falls: Yes Hx Unsteady Gait: Yes - GASTROINTESTINAL Hx Gastrointestinal Disorders: Yes Hx Gastroesophageal Reflux: Yes - GENITOURINARY/GYNECOLOGICAL Hx Genitourinary Disorders: Yes (URINARY RETENTION,DYSURIA) Hx Prostate Problems: Yes (BPH) - PSYCHIATRIC Hx Emotional Abuse: No Hx Physical Abuse: No Hx Substance Use: No - SURGICAL HISTORY Hx Surgeries: Yes Hx Coronary Stent: Yes (X2) Hx Vascular Surgery: Yes (L arm AV fistula ) - ANESTHESIA Hx Anesthesia: Yes Hx Anesthesia Reactions: No Hx Malignant Hyperthermia: No Meds Allergies/Adverse Reactions: Allergies Allergy/AdvReac Type Severity Reaction Status Date / Time No Known Allergies Allergy Verified 11/23/16 11:17 Physical Exam - Head Exam Head Exam: NORMAL INSPECTION - Eye Exam Eye Exam: PERRL - ENT Exam ENT Exam: Mucous Membranes Moist - Respiratory Exam Respiratory Exam: Clear to Auscultation Bilateral, NORMAL BREATHING PATTERN - Cardiovascular Exam Cardiovascular Exam: REGULAR RHYTHM - GI/Abdominal Exam GI & Abdominal Exam: Normal Bowel Sounds - Extremities Exam Extremities exam: Positive for: normal inspection - Neurological Exam Neurological exam: Reflexes Normal (ams, barely opens eyes , not following commands, moving all ext. ) Results - Vital Signs Recent Vital Signs: Last Vital Signs Temp 97.4 F L 01/13/17 05:39 Pulse 93 H 01/13/17 18:03 Resp 16 01/13/17 18:03 BP 142/74 01/13/17 18:03 Pulse Ox 99 01/13/17 18:03 - Labs Result Diagrams: 01/13/17 14:35 01/13/17 14:35 Labs: Laboratory Results - last 24 hr 01/13/17 01/13/17 01/13/17 14:35 14:35 14:35 WBC 9.1 RBC 4.12 Hgb 12.9 L Hct 37.9 L MCV 92.0 MCH 31.3 MCHC 34.0 RDW 16.6 H Plt Count 117 L MPV 12.5 H Gran % 80.1 H Lymph % (Auto) 8.6 L [place] % (Auto) 11.0 H Eos % (Auto) 0.2 L Baso % (Auto) 0.1 Gran # 7.29 H Lymph # 0.8 L [place] # 1.0 H Eos # 0.0 Baso # 0.01 PT 25.9 H INR 2.40 H APTT 33.1 H Sodium 137 Potassium 4.2 Chloride 94 L Carbon Dioxide 23 Anion Gap 24 H BUN 48 H Creatinine 5.1 H Est GFR ( Amer) 14 Est GFR (Non-Af Amer) 11 Random Glucose 91 Calcium 8.2 L Total Bilirubin 2.7 H AST 1551 H ALT 2507 H Alkaline Phosphatase 168 H Lactate Dehydrogenase 3374 H Total Creatine Kinase 192 Troponin I 0.64 H* D Total Protein 7.4 Albumin 3.8 Globulin 3.5 Albumin/Globulin Ratio 1.1 Triglycerides 178 H Cholesterol 163 LDL Cholesterol Direct 62 HDL Cholesterol 34 Salicylates Acetaminophen 01/13/17 14:35 WBC RBC Hgb Hct MCV MCH MCHC RDW Plt Count MPV Gran % Lymph % (Auto) [place] % (Auto) Eos % (Auto) Baso % (Auto) Gran # Lymph # [place] # Eos # Baso # PT INR APTT Sodium Potassium Chloride Carbon Dioxide Anion Gap BUN Creatinine Est GFR ( Amer) Est GFR (Non-Af Amer) Random Glucose Calcium Total Bilirubin AST ALT Alkaline Phosphatase Lactate Dehydrogenase Total Creatine Kinase Troponin I Total Protein Albumin Globulin Albumin/Globulin Ratio Triglycerides Cholesterol LDL Cholesterol Direct HDL Cholesterol Salicylates < 1 L Acetaminophen < 10.0 L Assessment & Plan - Assessment and Plan (Free Text) Assessment: 66 y/o M w/ AMS [place] on CKD AMS Acute LFt elevation w/ both tylenol and asprin levels normal . Check for othe rmetabolites, ag, osm, urine workup Started on NAC per GI Also started on Lactulose for possible metabolic encephalopathy, NOT Liver cirrohsis. NGT vs P.O BP controll to keep sbp < 160. PRN lopressor vs P.O medications if capable. Trend LFT, T.Bili and Mental status. If worsens please call GI and or transfer to Liver tx center. Need further family hx on patient recent baseline. No signs of infection or fever, if any concern then LP can be done as well to evaluate for encephalitis. Mild Trop elevation, trend trop x 3. If consistent elevation w/ ekg changes, start Heparin drip.Watch for bleeding w/ INR INR elevation w/o bleeding. No anticoagulant on board. Trend INR poor prognosis case d/w GI and ER cc time 72 min
--- NOTE | 2017-01-13 19:08 | CON ---
DATE: 01/13/2017 CHIEF COMPLAINT: Altered mental status. HISTORY OF PRESENT ILLNESS: A 66-year-old man with past medical history of gastric ulcer disease, ga stritis, esophagitis, end-stage renal disease on dialysis Monday, Monday and Monday, coronary anton ry disease status post stent, hypertension, type 2 diabetes mellitus, chronic anemia, who presented w ith acute altered mental status and abdominal pain. The patient is a poor historian but per nursing, the patient missed dialysis on Monday due to abdominal pain associated with vomiting. The patien t did not feel well and skipped his dialysis session and he came to the ED with nauseous feeling, not ed red tinged sputum for the past few days. The patient's decided to bring him into the ER for altered mental status. In the ER, the patient was found to have elevated liver enzymes and lipase. Ultrasound of the abdomen obtained did not show any acute pathology or gallstones. Currently, his CT of abdomen and pelvis showed atherosclerosis throughout and hepatomegaly, acetaminophen level was in normal limits. The patient is altered, not oriented to person, not oriented to place or time. He h as slurred speech. Therefore, code stroke was called, but MRI of the brain showed no acute intracran ial abnormalities. He withdraws to localized noxious stimulus, he was moving all extremities equally . He had elevated systolic and diastolic blood pressures. PAST MEDICAL HISTORY: End-stage renal disease on hemodialysis Monday, Monday and Monday, hyperten sam and coronary artery disease status post stents, hyperlipidemia and type 2 diabetes mellitus, pep tic ulcer disease. PAST SURGICAL HISTORY: Left arm fistula, EGD, gastritis, esophagitis. SOCIAL HISTORY: Smokes 1 pack per day for 30 years, quit 10 years ago. Denies any alcohol abuse. FAMILY HISTORY: Diabetes and dementia. REVIEW OF SYSTEMS: 14 point review of systems negative except as mentioned in HPI. PHYSICAL EXAMINATION: VITAL SIGNS: Temperature afebrile, pulse rate 92, blood pressure 160/94, respiratory rate 16, oxygen saturation 98% on room air. NEUROLOGIC: The patient is sitting up in bed, sleepy but moving all extremities, speech is hypophoni c. No aphasia noted. Cranial nerves II-XII are intact. MOTOR: Moves all extremities equally. Toes downgoing bilaterally. SENSORY: Decreased light touch and pinprick up to the calves bilaterally, diffuse vibration of the t oes. DTRs are 1+ throughout and absent the ankles. COORDINATION AND GAIT: Deferred for now. HEART: S1, S2, normal rate and rhythm. No murmurs, rubs, or gallops. ABDOMEN: Soft, nontender, nondistended. Bowel sounds are present. EXTREMITIES: No clubbing, no cyanosis. Peripheral pulses 2+ felt bilaterally. He has chronic venou s stasis changes. HEENT: Atraumatic, normocephalic. PERRLA. Extraocular muscles intact. LABORATORIES: Sodium 137, potassium 4.2, chloride of 94, carbon dioxide 22, BUN of 48, creatinine 5. 1. Random glucose 91. ASSESSMENT AND PLAN: This is a 66-year-old man with past medical history of gastritis, gastroesophag eal reflux disease, ____, endstage renal disease on hemodialysis, diabetes, coronary artery disease, abdominal pain, nausea, vomiting, altered mental status. Had a MELD score of 33.52. His ammonia lev el was 22. Ultrasound of the abdomen showed a fatty liver, no gallstones. CT of the abdomen showed atherosclerosis, hepatomegaly. He also has acute liver injury. At this time, his MRI of the brain s howed no acute intracranial abnormality. His altered mental status is likely metabolic encephalopath y superimposed underlying hypertensive urgency. AT THIS TIME, RECOMMEND: 1. Keep his blood pressure between 120 and 130 mmHg. 2. Give him lactulose and find out the cause for his acute liver injury. 3. ICU management, monitor his labs and correct accordingly. 4. Keep on aspirin and statin for stroke prevention and continue with current present management. W ill possibly need subacute rehabilitation. At this time, we will sign off. Please reconsult as necessary if there are any acute changes. Jean Marie Wu MD cc: [phone] TT: 01/13/2017 19:07:28 Confirmation # [id number] Dictation # [id number] [email or web address]
[2017-01-13] MEDS ORDERED: Morphine 2 mg/ml ISec IVP STA (20:36)
[2017-01-13] MEDS: Metoprolol 1 mg/ml Inj IVP PRN (20:58)
[2017-01-13 21:02] LABS: ALB/GLOB RATIO 1.2 (1.1-1.8); BILIRUBIN,TOTAL 2.7 mg/dL (0.2-1.3); POTASSIUM 4.5 mmol/L (3.6-5.0); TOTAL PROTEIN 6.4 g/dL (5.8-8.3)
--- NOTE | 2017-01-13 21:57 | CARD ---
APPROVED REPORT EKG Measurement Heart [id number] DC [id number] <Conclusion> Normal sinus rhythm Possible Left atrial enlargement ST & T wave abnormality, consider lateral ischemia Prolonged QT Abnormal ECG
[2017-01-13 22:30] VITALS: BMI 20.2
[2017-01-13] MEDS ORDERED: Pneumococcal 23-Valent Vaccine IM ONE (22:30)
--- NOTE | 2017-01-13 22:39 | CARD ---
APPROVED REPORT EKG Measurement Heart [id number] P71 [id number] <Conclusion> Sinus Rhythm, First degree AV Block Left axis deviation Right bundle branch block Abnormal ECG
[2017-01-14 05:49] LABS: ADD MANUAL DIFF? NO
[2017-01-14 06:02] LABS: BASO # 0.01 K/mm3 (0.0-2.0); BASO % 0.1 % (0.0-3.0); EOS # 0.1 (0.0-0.7); GRAN # 6.25 (1.4-6.5); GRAN % 77.4 % (50.0-68.0); HEMATOCRIT 37.4 % (42.0-52.0); LYMPH % 11.8 % (22.0-35.0); MEAN CELL VOLUME 93.7 fL (80.0-105.0); MEAN CORPUSCULAR HEMOGLOBIN 30.6 pg (25.0-35.0); MEAN CORPUSCULAR HGB CONC 32.6 g/dl (31.0-37.0); MONO # 0.8 (0.1-0.6); MONO % 9.7 % (1.0-6.0); PLATELET COUNT 97 10^3/uL (120.0-450.0); RED CELL DISTRIBUTION WIDTH 17.4 % (11.5-14.5); WHITE BLOOD COUNT 8.1 10^3/ul (4.5-11.0)
[2017-01-14 06:16] LABS: ALB/GLOB RATIO 1.1 (1.1-1.8); BILIRUBIN,TOTAL 2.8 mg/dL (0.2-1.3); CALCIUM 8.3 mg/dL (8.4-10.5); POTASSIUM 4.6 mmol/L (3.6-5.0); TOTAL PROTEIN 6.2 g/dL (5.8-8.3)
[2017-01-14 06:17] LABS: INR 1.98 (0.93-1.08)
[2017-01-14 07:17] LABS: TROPONIN I 3.49 ng/mL
[2017-01-14] MEDS ORDERED: Acetylcysteine 200 mg/ml IV IV ONE (07:42)
[2017-01-14] MEDS ORDERED: WATER IV ONE ×2 (08:30→12:45)
[2017-01-14] MEDS ORDERED: ACETYLCYSTEINE IV ONE ×2 (08:30→12:45)
[2017-01-14] MEDS ORDERED: DEXTROSE 5% IV ONE ×2 (08:30→12:45)
--- NOTE | 2017-01-14 08:38 | CP.PCM.PCO ---
Physician Communication Note - Physician Communication Note Physician Communication Note: Troponin rising/Etio LFT unclear/prognosis grave
[2017-01-14 08:54] LABS: AMYLASE 307 U/L (35-125); LIPASE 1900 U/L (23-300)
--- NOTE | 2017-01-14 09:44 | PN ---
DATE: 01/14/2017 SUBJECTIVE: The patient is resting in bed on room air. No complaints at this time. Talking to GI t his morning, he still feels the patient is in encephalopathy even though his ammonia level is relativ jessica normal. The patient has no active nauseousness or vomiting, no diarrhea, no complaints of pain a t this time. PHYSICAL EXAMINATION: VITAL SIGNS: His temperature is 97.8, pulse is 85, respirations are 17, and BP is 135/79. SKIN: Warm and dry. HEAD: Atraumatic, normocephalic. EYES: Reactive to light. EARS, NOSE AND THROAT: Seem to be within normal limits. NECK: Supple. No JVD, no thyroid enlargement, no lymph nodes. HEART: Has a regular rate and rhythm. Normal S1, S2. LUNGS: Reveal good breath sounds bilaterally. ABDOMEN: Soft, decreased bowel sounds. GENITALIA AND RECTAL: Deferred. MUSCULOSKELETAL: No joint deformities. EXTREMITIES: Reveal no edema. NEUROLOGIC: He seen to be moving all extremities, but still very confused at times. LABORATORY DATA: White count is 8.1, hemoglobin is 12.2, hematocrit 37.4 with platelets of 97,000. The patient's PT is 21.4 and INR is 1.98. Sodium is 137, potassium 4.6, chloride 95, CO2 of 24 with a BUN of 62, creatinine of 6.8, glucose of 117 with an AST of 1076 and an ALT 1892. The patient's tr oponin is elevated to 3.49. Note that he has an elevated amylase and lipase as well. IMPRESSION: This patient has acute liver failure. Etiology unclear. He has a coagulopathy as well as encephalopathy. The patient is thrombocytopenic and note that he has a past history of peptic ulc er disease, gastritis and esophagitis. The patient does have increase in transaminases and pancreati tis must be considered. He has end-stage renal disease, altered mental status, hypertension, coronar y artery disease, diabetes, and anemia. PLAN: He is getting Zosyn as far as an antibiotic and is getting some Lopressor for his blood pressu re. The patient is scheduled for lactulose as well. We will continue with IV fluids. I will contin ue to treat aggressively along with the other consultants and the primary care doctor. Carlo Ferguson MD cc: [id number] TT: 01/14/2017 09:44:07 Confirmation # [id number] Dictation # [id number] jn
--- NOTE | 2017-01-14 10:38 | CP.PCM.PN ---
<Praneeth Mitchell - Last Filed: 01/14/17 10:40> Subjective - Date & Time of Evaluation Date of Evaluation: 01/14/17 Time of Evaluation: 10:36 - Subjective Subjective: Pt s&e. Pt is more alert and oriented today. Follows commands response to stimuli. Trop is up today to 3.6. Cardio constuled. Denies F/C/N/V/D/CP/SOB/abd pain. Objective - Vital Signs/Intake and Output Vital Signs (last 24 hours): Temp Pulse Resp BP Pulse Ox 97.8 F 85 17 135/79 93 L 01/14/17 04:00 01/14/17 06:40 01/14/17 06:40 01/14/17 06:00 01/14/17 06:40 Intake and Output: 01/14/17 01/14/17 06:59 18:59 Intake Total 50 Balance 50 - Medications Medications: Current Medications Aspirin (Ecotrin) 81 mg PO DAILY CURLY Acetylcysteine 2,675 mg/ (Dextrose) 513.375 mls @ 125 mls/hr IV .[id number] ONE PRN Reason: Protocol Stop: 01/14/17 12:36 Last Admin: 01/14/17 09:05 Dose: 125 mls/hr Acetylcysteine 5,350 mg/ (Dextrose) 1,026.75 mls @ 62.5 mls/hr IV .[id number] ONE PRN Reason: Protocol Stop: 01/15/17 05:10 Lactulose (Enulose) 20 gm PO Q8 CURLY Metoprolol Tartrate (Lopressor) 5 mg IVP Q6 PRN PRN Reason: Systolic Blood Pressure Last Admin: 01/13/17 20:58 Dose: 5 mg - Labs Labs: 01/14/17 05:00 01/14/17 05:00 PT 21.4 Seconds (9.9-11.8) H 01/14/17 05:00 INR 1.98 (0.93-1.08) H 01/14/17 05:00 APTT 33.1 Seconds (23.7-30.8) H 01/13/17 14:35 - Constitutional Appears: Cachectic, Chronically Ill - Head Exam Head Exam: ATRAUMATIC, NORMAL INSPECTION, NORMOCEPHALIC - Eye Exam Eye Exam: EOMI, Normal appearance, PERRL Pupil Exam: NORMAL ACCOMODATION, PERRL - ENT Exam ENT Exam: Mucous Membranes Moist, Normal Exam - Neck Exam Neck Exam: Full ROM, Normal Inspection. absent: Lymphadenopathy - Respiratory Exam Respiratory Exam: NORMAL BREATHING PATTERN - Cardiovascular Exam Cardiovascular Exam: REGULAR RHYTHM, +S1, +S2. absent: Murmur - GI/Abdominal Exam GI & Abdominal Exam: Soft, Tenderness. absent: Distended, Firm, Guarding, Rigid Additional comments: TTP - Extremities Exam Extremities Exam: Full ROM - Neurological Exam Neurological Exam: Awake - Psychiatric Exam Psychiatric exam: absent: Normal Affect, Normal Mood - Skin Skin Exam: Dry, Intact Assessment and Plan - Assessment and Plan (Free Text) Assessment: 66 M w PMH gastritis, gastric ulcer, esphagitis, ESRD on HD, DM, CAD came with abd pain /N/V/AMS. MELD score: 33. 52 % 3mo mortality rate LDH: 3300 tbil 2.7 [id number] ALT 2700 LIpase 2400 Acetaminophen <10 Ammonia 22 Trop 0.64 US abd: fatty liver , no gall stones CT: artherosclerosis, hepatomegaly . reviewed. Acute liver injury unknown etiology DDX: Viral hepatitis, drug induced, ischemic Hepatic encephalitis -Continue Lactulose -Da Silva culture -Acetlecystein -f/u Hep panel -Monitor labs -ICU management -f/u abd doppler to evaluate portal vein and hepatic vein -We will follow closely <Fawn Gaytan V - Last Filed: 01/14/17 23:02> Objective - Vital Signs/Intake and Output Vital Signs (last 24 hours): Temp Pulse Resp BP Pulse Ox 98.4 F 91 H 22 155/102 H 96 01/14/17 12:00 01/14/17 20:40 01/14/17 20:40 01/14/17 20:00 01/14/17 20:40 Intake and Output: 01/14/17 01/15/17 18:59 06:59 Intake Total 1130 Balance 1130 - Medications Medications: Current Medications Aspirin (Ecotrin) 81 mg PO DAILY [facility] Last Admin: 01/14/17 15:48 Dose: 81 mg Acetylcysteine 5,350 mg/ (Dextrose) 1,026.75 mls @ 62.5 mls/hr IV .[id number] ONE PRN Reason: Protocol Stop: 01/15/17 05:10 Last Admin: 01/14/17 13:57 Dose: 62.5 mls/hr Lactulose (Enulose) 20 gm PO Q8 CURLY Last Admin: 01/14/17 22:22 Dose: 20 gm Metoprolol Tartrate (Lopressor) 5 mg IVP Q6 PRN PRN Reason: Systolic Blood Pressure Last Admin: 01/13/17 20:58 Dose: 5 mg - Labs Labs: 01/14/17 05:00 01/14/17 05:00 PT 21.4 Seconds (9.9-11.8) H 01/14/17 05:00 INR 1.98 (0.93-1.08) H 01/14/17 05:00 APTT 33.1 Seconds (23.7-30.8) H 01/13/17 14:35 Assessment and Plan - Assessment and Plan (Free Text) Plan: Dr. Gaytan this is an addendum to t progress report dictated by Dr. Mitchell. Discussed with the agriculture manager and residents. Discussed with the resident and discussed with the agriculture manager this patient was seen and evaluated he patient is now more marcie will continue lactulose and advance diet. Close follow-up of LFT.
--- NOTE | 2017-01-14 10:47 | CON ---
DATE: 01/14/2017 REQUESTING PHYSICIAN: Dr. Agarwal. REASON FOR CONSULTATION: Elevated troponin. HISTORY OF PRESENT ILLNESS: This is a 66-year-old male with known coronary artery disease who was ad mitted yesterday with altered mental status and abdominal pain. He was transferred to the ICU yester day because of clinical deterioration. He does have known coronary artery disease, status post prior PCI. His initial troponin was unremarkable; however, repeat is elevated this morning. Evaluation w as requested. The patient is seen lying in bed in the CCU. He is arousable, but answers minimal que stions. He follows commands, but appears somewhat uncooperative with examination. According to the chart, he does have chronic renal failure, maintained on hemodialysis Mondays, Wednesdays and Fridays . He has a history of hypertension, hyperlipidemia, diabetes and remote peptic ulcer disease. He porter s known coronary artery disease and underwent stenting in the past. His last documented catheterizat ion report from 2014 revealed patent stents in his LAD and circumflex artery with moderate diffuse di sease elsewhere and an ejection fraction of 25%. PAST MEDICAL HISTORY: Notable for the problems mentioned above. He has a history of COPD, BPH, oscar roesophageal reflux disease. CURRENT MEDICATIONS: Include Mucomyst, Ecotrin, lactulose, and Lopressor p.r.n. ALLERGIES: He has no reported allergies. SOCIAL HISTORY: Unobtainable. FAMILY HISTORY: Unobtainable. REVIEW OF SYSTEMS: Also unobtainable at present due to poor cooperation. PHYSICAL EXAMINATION: GENERAL: He is a frail appearing chronically ill man. VITAL SIGNS: His blood pressure is 136/80 with a pulse of 86 in sinus, respirations are 16. He is a febrile. HEENT: Some temporal wasting noted. NECK: No JVD. CHEST: Bilateral scattered rhonchi heard. HEART: PMI displaced laterally with soft tones noted, a systolic murmur left sternal border. ABDOMEN: Soft, nontender, normoactive bowel sounds. EXTREMITIES: No edema. SKIN: Warm and dry. PSYCHIATRIC: Arousable, but poorly cooperative with examination. DIAGNOSTIC DATA: Potassium 4.6, BUN and creatinine are 62 and 6.8. Initial troponin was 0.64, repea t is 3.49. Hemoglobin and hematocrit are 12.2 and 37.4 with a white count of 8.1. Platelet count is 97,000. PT/INR 21.4 and 1.98. Bilirubin is 2.8. AST, ALT 1076 and 1898 respectively. Amylase and lipase are 307 and 1900 respectively. Electrocardiogram reveals sinus rhythm with ST-T changes sugg estive of anterolateral ischemia and QT prolongation. Chest x-ray reveals normal cardiac silhouette with clear lung manrique. CT of the abdomen and pelvis was reportedly unremarkable. CT of the head re portedly showed no significant abnormalities either. MRI of the brain was also unremarkable. IMPRESSION: 1. Elevated troponin with no acute EKG changes. History is somewhat unreliable given the patient's current mental status. Possible non-ST segment elevation myocardial infarction. 2. Known coronary artery disease, status post multivessel percutaneous coronary intervention. 3. Ischemic cardiomyopathy. 4. Apparent hepatitis, etiology uncertain. 5. Evidence of pancreatitis. 6. Chronic renal failure on hemodialysis. RECOMMENDATIONS: Supportive care is advised at the present time. Aspirin and beta zeb therapy s hould be continued for now. An echocardiogram has been ordered. Serial enzymes and electrocardiogra m will be obtained. A GI workup has been initiated. His prognosis remains extremely guarded at this time. We will be happy to follow along and make further recommendations as appropriate. Thank you for this consultation. Guanaco Evans MD cc: [phone] TT: 01/14/2017 10:46:29 Confirmation # [id number] Dictation # [id number] meliza
--- NOTE | 2017-01-14 15:00 | HP ---
CHIEF COMPLAINT AND HISTORY OF PRESENT ILLNESS: This is a 66-year-old male [facility]. He has a past medical history of end-stage renal disease . He is on dialysis Monday, Monday, Monday. He has coronary disease with stents, hypertension, d yslipidemia. The patient has been having abdominal pain and vomiting for the past 2 days. He had mi ssed dialysis on Monday. The patient's records indicate that his brought him into the hospit al. He was having difficulty in finding his clothes. He was complaining of left upper quadrant abdo carlos pain. He was spitting up red-tinged sputum. The patient had come in for further evaluation. He had gone to dialysis and a rapid response was called. It was thought that the patient may be havi ng a stroke. He was aphasic and unable to follow commands. After dialysis he had improved. It was felt that it was mostly from metabolic encephalopathy. The patient had an MRI done that was negative . He was affiliated evaluated by Dr. Wu. This morning, he feels well. He is able to answer que stions. He denies any chest pain or shortness of breath. The confusion seems to be better. PAST MEDICAL HISTORY: As above, coronary artery disease with stenting, diabetes type 2, end-stage renal disease on hemodialysis, secondary hyperparathyroidism, hypertension, anemia. PAST SURGICAL HISTORY: Left AV fistula. SOCIAL HISTORY: He quit smoking about 11 years ago. He smoked for about 30 years. He was drinking in the past, but he says he quit. FAMILY HISTORY: Diabetes and dementia. HOME MEDICATIONS: Albuterol, Klonopin, aspirin, Coreg, Levemir, Imdur, Spiriva, Zestril, PhosLo, flu oxetine, omeprazole. PHYSICAL EXAMINATION: VITAL SIGNS: Temperature is 97.8, pulse of 85, blood pressure is 135/79, respirations 17, O2 saturat ion 93%, height is 5 feet 4, weight is 118 pounds. GENERAL: Patient lying in bed, flat, and in no apparent distress. HEAD AND NECK EXAM: Atraumatic, normocephalic. Conjunctivae are pink. Throat clear and mouth with moist mucosa. Oropharynx benign. EYES: Extraocular movements are intact. PERRLA. NECK: Supple. No JVD, thyromegaly, or adenopathy. No bruits. HEART: S1 and S2 regular rate and rhythm. No murmurs, rubs, or gallops. LUNGS: Clear to auscultation bilaterally. No wheezing rales or rhonchi appreciated. No retraction s on exam. ABDOMEN: Soft, nontender, nondistended. Bowel sounds are positive in all quadrants. No rebound. No hepatosplenomegaly. EXTREMITIES: No cyanosis, clubbing, or edema. NEURO: No facial asymmetry, tongue is midline, no uvula deviation. Power is 5/5 in upper extremity and 5/5 in lower extremity. Sensation is normal in upper extremity and lower extremity. PSYCH: Alert, awake, oriented x 2. He knows where he is, he knows the place, location. : No CVA tenderness VASCULAR: 2+ pulses in carotid and pedal pulses. SKIN: No erythema or abnormal nodules noted. SPINE: Normal curvature. LYMPHADENOPATHY: No anterior cervical or posterior cervical adenopathy. No inguinal adenopathy. LABORATORY DATA: Have been reviewed. White count of 8.1, hemoglobin 12.2, platelet count is 97. IN R 2.4. His AST, ALT is ____ and 1898. His creatinine was 11.8 it is now 6.8, his BUN is 142 initial ly and now is 62. Amylase is elevated at 307 and 1900. Tox screen shows aspirin is normal, Tylenol is normal, alcohol is normal. MRI of the brain is unremarkable. Abdomen and pelvis CT scan shows no acute intracranial findings. CT of the head shows no acute findings. EKG shows a heart rate of 99, sinus rhythm. QTC is 490. Chest x-ray shows no active disease. Abdominal ultrasound done shows no acute findings. No significant interval changes compared to prior exam. ASSESSMENT: 1. Possible dysequilibrium syndrome, now resolved. 2. End-stage renal disease on hemodialysis. 3. Noncompliance. 4. Diabetes type 2. 5. Secondary hyperparathyroidism. 6. Hypertension. 7. Anemia. 8. Left arm arteriovenous fistula. 9. Acute hepatitis, unknown etiology. 10. Elevated troponin. PLAN: The patient is going to be in the ICU. He has elevated LFTs, I am not sure of the etiology. The patient is going to be seen by cardiology and GI. I appreciate input from Dr. Wu and the ICU team. The patient is on aspirin and is going to be on lactulose. The patient is on metoprolol. Th e patient is waiting for an echo to be done. The patient also has a duplex abdominal ultrasound orde red for ____ will continue to follow closely. Repeat blood work tomorrow. Maurice Agarwal MD cc: [phone] TT: 01/14/2017 14:59:15 jn
[2017-01-15] MEDS ORDERED: Alum-Mag Hydrox-Simethicone Susp (30 mL) PO ONE (02:53)
--- NOTE | 2017-01-15 05:45 | CARD ---
APPROVED REPORT EXAM: Two-dimensional and M-mode echocardiogram with Doppler and color Doppler. 2D DIMENSIONS IVSd1.1 (0.7-1.1cm)LVDd5.1 (3.9-5.9cm) PWd1.1 (0.7-1.1cm)LVDs4.4 (2.5-4.0cm) FS (%) 13.8 %LVEF (%)29.7 (>50%) M-Mode DIMENSIONS Left Atrium (MM)3.80 (2.5-4.0cm)Aortic Root3.30 (2.2-3.7cm) Aortic Cusp Exc.1.80 (1.5-2.0cm) Aortic Valve AoV Peak Kehzlxgv98.9cm/sAoV VTI19.5cmAO Peak GR.4mmHg LVOT Peak Ejvhyswx02.7cm/sLVOT VTI11.30cmAO Mean GR.2mmHg Mitral Valve MV E Bxjjmjre49.4cm/sMV A Xnxbgowq68.3cm/sE/A ratio0.8 TDI Lateral E' Peak V5.21cm/sMedial E' Peak V2.41cm/sE/Lateral E'15.6 E/Medial E'33.8 Tricuspid Valve TR Peak Jgzhdlfm079ih/sRAP FMOPOZXU96tmQfZA Peak Gr.51mmHg MXVK10qkNz LEFT VENTRICLE The left ventricle is normal size. There is borderline concentric left ventricular hypertrophy. The systolic function is severely impaired. There is global hypokinesis of the left ventricle. RIGHT VENTRICLE The right ventricle is normal size. ATRIA The left atrium is mildly dilated. The right atrium is mildly dilated. The interatrial septum is intact with no evidence for an atrial septal defect. AORTIC VALVE The aortic valve is normal in structure. No aortic regurgitation is present. There is no aortic valvular stenosis. MITRAL VALVE Mitral annular calcification is mild. Mitral regurgitation is moderate. TRICUSPID VALVE The tricuspid valve is normal in structure. There is moderate tricuspid regurgitation. There is moderate pulmonary hypertension. PULMONIC VALVE The pulmonary valve is normal in structure. GREAT VESSELS The aortic root is normal in size. The IVC is normal in size and collapses >50% with inspiration. PERICARDIAL EFFUSION There is no pleural effusion. There is no pericardial effusion. <Conclusion> Biatrial enlargement. Borderline concentric LVH. Severe LV systolic dyfunction with global hypokinesis. Moderate MR. Moderate TR.
[2017-01-15 07:43] LABS: ADD MANUAL DIFF? NO
[2017-01-15 07:48] LABS: BASO # 0.01 K/mm3 (0.0-2.0); BASO % 0.1 % (0.0-3.0); EOS # 0.1 (0.0-0.7); EOS % 1.9 % (1.5-5.0); GRAN # 5.08 (1.4-6.5); GRAN % 75.2 % (50.0-68.0); LYMPH # 0.7 (1.2-3.4); LYMPH % 10.7 % (22.0-35.0); MEAN CORPUSCULAR HGB CONC 33.3 g/dl (31.0-37.0); MEAN PLATELET VOLUME 12.5 fl (7.0-11.0); MONO # 0.8 (0.1-0.6); MONO % 12.1 % (1.0-6.0); PLATELET COUNT 102 10^3/uL (120.0-450.0); RED CELL DISTRIBUTION WIDTH 17.5 % (11.5-14.5); WHITE BLOOD COUNT 6.8 10^3/ul (4.5-11.0)
--- NOTE | 2017-01-15 07:52 | CP.PCM.PN ---
Subjective - Date & Time of Evaluation Date of Evaluation: 01/15/17 Time of Evaluation: 07:48 - Subjective Subjective: Pt s&e. AAOx3. Had episodes of vomiting overnight. Having BM. Pt is hungry and wants to eat. Reports epigastric pain. Objective - Vital Signs/Intake and Output Vital Signs (last 24 hours): Temp Pulse Resp BP Pulse Ox 97.8 F 89 19 146/101 H 100 01/15/17 06:00 01/15/17 06:00 01/15/17 06:00 01/15/17 06:00 01/15/17 06:00 Intake and Output: 01/15/17 01/15/17 06:59 18:59 Intake Total 970 Balance 970 - Medications Medications: Current Medications Aspirin (Ecotrin) 81 mg PO DAILY [facility] Last Admin: 01/14/17 15:48 Dose: 81 mg Lactulose (Enulose) 20 gm PO Q8 CURLY Last Admin: 01/15/17 06:53 Dose: 20 gm Metoprolol Tartrate (Lopressor) 5 mg IVP Q6 PRN PRN Reason: Systolic Blood Pressure Last Admin: 01/13/17 20:58 Dose: 5 mg - Labs Labs: 01/14/17 05:00 01/14/17 05:00 PT 21.4 Seconds (9.9-11.8) H 01/14/17 05:00 INR 1.98 (0.93-1.08) H 01/14/17 05:00 APTT 33.1 Seconds (23.7-30.8) H 01/13/17 14:35 - Constitutional Appears: No Acute Distress, Cachectic - Head Exam Head Exam: ATRAUMATIC, NORMAL INSPECTION, NORMOCEPHALIC - Eye Exam Eye Exam: EOMI, Normal appearance, PERRL Pupil Exam: NORMAL ACCOMODATION, PERRL - ENT Exam ENT Exam: Mucous Membranes Moist, Normal Exam - Neck Exam Neck Exam: Full ROM, Normal Inspection. absent: Lymphadenopathy - Respiratory Exam Respiratory Exam: Clear to Ausculation Bilateral, NORMAL BREATHING PATTERN - Cardiovascular Exam Cardiovascular Exam: REGULAR RHYTHM, +S1, +S2. absent: Murmur - GI/Abdominal Exam GI & Abdominal Exam: Soft, Tenderness, Normal Bowel Sounds. absent: Distended, Firm, Guarding, Rigid Additional comments: Epigastric TTP - Extremities Exam Extremities Exam: Full ROM, Normal Inspection - Back Exam Back Exam: NORMAL INSPECTION - Neurological Exam Neurological Exam: Alert, Awake, CN II-XII Intact, Normal Gait, Oriented x3 - Psychiatric Exam Psychiatric exam: Normal Affect, Normal Mood - Skin Skin Exam: Dry, Intact, Normal Color, Warm Assessment and Plan - Assessment and Plan (Free Text) Assessment: Pancreatitis, elevated LFT : Lipase , LFT trending down, hemodynamically stable -FLD advance diet as tolerated. -continue medical management -Lactulose -Trend Lipase, LFT Will DW attending.
[2017-01-15 07:58] LABS: INR 1.63 (0.93-1.08)
[2017-01-15 08:06] LABS: ALB/GLOB RATIO 1.1 (1.1-1.8); BILIRUBIN,TOTAL 3.1 mg/dL (0.2-1.3); CALCIUM 8.7 mg/dL (8.4-10.5); POTASSIUM 4.3 mmol/L (3.6-5.0); TOTAL PROTEIN 6.3 g/dL (5.8-8.3)
[2017-01-15 08:19] LABS: TROPONIN I 3.01 ng/mL
[2017-01-15] MEDS: Tiotropium 18 mcg Cap For Inhalation IH SCH (10:25)
--- NOTE | 2017-01-15 11:26 | PN ---
DATE: 01/15/2017 SUBJECTIVE: The patient is comfortable. He says he does have epigastric discomfort. The patient porter s no headaches, no dizziness. PHYSICAL EXAMINATION: VITAL SIGNS: Temperature is 97.8, pulse of 90, blood pressure is 146/101, respirations 19, O2 satura tion is 100%. GENERAL: The patient comfortable, in no acute distress. HEENT: Anicteric sclerae. Moist mucosa. NECK: No JVD or adenopathy. CARDIAC: S1/S2. No murmurs. No rubs. Regular. RESPIRATORY: Clear to auscultation bilaterally. No wheezes, rales, or rhonchi. Good air entry. ABDOMEN: Bowel sounds are positive, soft, nontender, and nondistended. EXTREMITIES: No edema. Has 1+ pulses. LABORATORIES: White count of 6.8, hemoglobin is 12.0, platelet count is 102. Sodium 134, creatinine is 8.1. Troponin is 3.01. AST is 745, ALT is 1670. ASSESSMENT: 1. Pancreatitis. 2. End-stage renal disease, on hemodialysis. 3. Non-ST elevation myocardial infarction. 4. Acute hepatitis. 5. Left arm arteriovenous fistula. 6. Diabetes type 2. 7. Secondary hyperparathyroidism. 8. Hypertension. 9. Anemia. 10. Noncompliance. PLAN: The patient is currently comfortable. He had missed dialysis. He was dialyzed on Monday. He is much more awake and alert today. The patient is on carvedilol, is receiving aspirin, is going to continue with Flomax. The patient is on isosorbide, is on Plavix. The blood pressure is controlled with Zestril. I will continue with Spiriva. Maurice Agarwal MD cc: [id number] TT: 01/15/2017 11:26:10 Confirmation # [id number] Dictation # [id number] en
--- NOTE | 2017-01-15 12:24 | PN ---
DATE: 01/15/2017 SUBJECTIVE: The patient is seen sitting in bed on telemetry. He is much more awake and alert today. He denies any chest pain, but continues to complain of abdominal pain. CURRENT MEDICATIONS: Include carvedilol 25 mg b.i.d., Ecotrin once daily, lactulose, Flomax, Imdur 6 0 mg daily, PhosLo, Plavix 75 mg daily, Prozac, Spiriva, and Zestril 20 mg daily. OBJECTIVE: GENERAL: He is a middle-aged man who appears chronically ill. VITAL SIGNS: His blood pressure is 146/100 with a pulse of 88. Respirations are 14. He is in sinus rhythm, and he is afebrile. HEENT: No JVD. CHEST: Bilateral scattered rhonchi. HEART: PMI displaced laterally with soft tones noted. ABDOMEN: Soft, nontender, normoactive bowel sounds. EXTREMITIES: No edema. DIAGNOSTIC DATA: Troponin 3.01, potassium 4.3. BUN and creatinine are 80 and 8.1, hemoglobin and he matocrit 12.7 and 36.0 with a white count 6.8, platelet count 102,000. Total bilirubin is 3.1. AST and ALT are 745 and 1670. Amylase is 530. IMPRESSION: 1. Non-ST segment elevation myocardial infarction, hemodynamically stable at present. 2. Known coronary artery disease with severe left ventricular dysfunction. 3. Chronic renal failure, on dialysis. 4. Pancreatitis. 5. Hepatitis B. 6. Thrombocytopenia likely secondary to liver disease. RECOMMENDATIONS: His current medications should be continued. Conservative cardiac management will be planned for now. If his platelet count is to drop lower, the safety of aspirin and Plavix use marcella l need to be reconsidered. If he is to require any surgical intervention, he is at significantly inc reased risk given his known coronary disease and recent infarct. We will continue to follow along an d make further recommendations as appropriate. Guanaco Evans MD cc: [id number] TT: 01/15/2017 12:23:26 Confirmation # [id number] Dictation # [id number] [email or web address]
[2017-01-15] MEDS: Oxycodone/Acetaminophen 5/325 mg Tab PO PRN ×2 (13:28→17:28)
--- NOTE | 2017-01-15 13:36 | US ---
PROCEDURE: Portal vein duplex ultrasound. CLINICAL HISTORY: Abnormal liver function tests. Evaluate for portal vein thrombosis. PHYSICIAN(S): Blane Gonzalez M.D. FINDINGS: The extrahepatic portal vein is patent with hepatopetal flow. No sonographic evidence for thrombus or obstruction is seen. The 3 hepatic veins are visualized centrally and patent. The hepatic artery is patent. There is a trace amount of ascites in the upper abdomen. The spleen is normal in size. IMPRESSION: 1. Patent portal vein with hepatopetal flow.
--- NOTE | 2017-01-15 14:16 | RAD ---
PROCEDURE: Right Knee Radiographs. HISTORY: pain COMPARISON: None. FINDINGS: BONES: Normal. No fracture. JOINTS: Normal. No osteoarthritis. JOINT EFFUSION: None. OTHER FINDINGS: Vascular calcifications in soft tissues. IMPRESSION: No evidence of fracture or arthritis.
--- NOTE | 2017-01-15 16:33 | PN ---
DATE: 01/15/2017 This patient was seen and evaluated earlier today. The patient had episode of vomiting and the patient is now on a full liquid diet. The patient is hungry, wants to eat. PHYSICAL EXAMINATION: VITAL SIGNS: Temperature is 97.6, pulse 84, blood pressure is 139/98. HEENT: Atraumatic, anicteric. NECK: Supple. HEART: S1, S2 heard. LUNGS: Bilateral air entry present. ABDOMEN: Soft. No tenderness. EXTREMITIES: No cyanosis, no clubbing, no edema. LABORATORY DATA: Hemoglobin 12, hematocrit 36, WBC 6.8, platelets 102. INR 1.63. Chemistry shows improving transaminases, his AST is 745, ALT is 1670, alkaline phosphatase is now normalized. Troponin is elevated at 3.01. Amylase is 530. The patient did have an ultrasound done when the patient came in. It showed no gallstones. Also had a Doppler done, which showed normal hepatopedal flow with a patent portal vein. IMPRESSION: This is a 66-year-old patient with end-stage renal disease, admitted with acute liver failure, clinically improving now. The etiology was not clear. The patient did also have elevated pancreatic enzymes. Ultrasound showed no gallstones. Ammonia level was normal. However, patient was placed on lactulose in view of clinical suspicion of hepatic encephlopathy in setting acute liver failure. Also, the patient's mental status continued to improve. Had an episode of vomiting last night .The patient does have elevated troponin level, being followed by cardiology for non-ST segment myocardial infarction. PLAN: Would recommend slowly advancing diet in a.m. if there are no further episodes of vomiting. We will continue the PPI. We will continue to closely follow up LFT. The patient did have hepatitis B surface antigen done which was negative. Hep B antibody negative. Followup of the LFTs, followup of the pancreatic enzymes. Would consider repeating the ultrasound. or magnetic resonance cholangiopancreatography to further evaluate the pancreas based on the clinical course,. Thank you very much for allowing us to participate in the care of the patient. Fawn Gaytan MD cc: [id number] TT: 01/15/2017 16:33:10 Confirmation # [id number] Dictation # [id number] en MTDD
[2017-01-15] MEDS: Insulin Detemir 100 units/ml Vial (Levemir) SC SCH (21:29)
[2017-01-15] MEDS: Insulin Reg-MEDIUM-Coverage SC SCH (21:30)
[2017-01-15] MEDS ORDERED: Insulin Reg-MEDIUM-Coverage SC SCH (22:00)
--- NOTE | 2017-01-16 01:34 | CARD ---
APPROVED REPORT EKG Measurement Heart [id number] <Conclusion> Normal sinus rhythm Possible Left atrial enlargement ST & T wave abnormality, consider lateral ischemia Prolonged QT Abnormal ECG
[2017-01-16] MEDS ORDERED: Dextrose 50% SYRINGE Inj (50 ml) IVP ONE (06:17)
[2017-01-16 06:50] LABS: ADD MANUAL DIFF? NO
[2017-01-16 07:00] LABS: EOS # 0.1 (0.0-0.7); EOS % 1.1 % (1.5-5.0); GRAN # 5.43 (1.4-6.5); GRAN % 86.3 % (50.0-68.0); HEMATOCRIT 32.2 % (42.0-52.0); LYMPH # 0.4 (1.2-3.4); LYMPH % 6.4 % (22.0-35.0); MEAN CELL VOLUME 91.2 fL (80.0-105.0); MEAN CORPUSCULAR HEMOGLOBIN 31.2 pg (25.0-35.0); MEAN CORPUSCULAR HGB CONC 34.2 g/dl (31.0-37.0); MONO # 0.4 (0.1-0.6); MONO % 6.2 % (1.0-6.0); PLATELET COUNT 95 10^3/uL (120.0-450.0); RED CELL DISTRIBUTION WIDTH 17.1 % (11.5-14.5); WHITE BLOOD COUNT 6.3 10^3/ul (4.5-11.0)
[2017-01-16 07:07] LABS: BILIRUBIN,TOTAL 3.9 mg/dL (0.2-1.3); CALCIUM 8.6 mg/dL (8.4-10.5); MAGNESIUM 2.7 mg/dL (1.7-2.2); PHOSPHOROUS 7.8 mg/dL (2.5-4.5); POTASSIUM 5.1 mmol/L (3.6-5.0); TOTAL PROTEIN 5.7 g/dL (5.8-8.3)
[2017-01-16 07:21] LABS: TROPONIN I 1.68 ng/mL
[2017-01-16] MEDS: Insulin Reg-MEDIUM-Coverage SC SCH ×4 (07:41→21:34)
--- NOTE | 2017-01-16 08:26 | CP.PCM.PN ---
Subjective - Date & Time of Evaluation Date of Evaluation: 01/16/17 Time of Evaluation: 07:00 - Subjective Subjective: Stable on 2R. No CP or SOB. V/S noted.RSR PE: Lungs: rhonchi Cor.: S1S2, sys. murmur Abd.: soft Ext.: no edema Neuro.: alert Labs noted: Pl ct. = 95,000, Trop.: 1.68 Echo noted. Severe LVD and mod MR and TR. Objective - Vital Signs/Intake and Output Vital Signs (last 24 hours): Temp Pulse Resp BP Pulse Ox 97.6 F 76 20 124/76 99 01/16/17 06:00 01/16/17 06:00 01/16/17 06:00 01/16/17 06:00 01/16/17 06:00 Intake and Output: 01/16/17 01/16/17 06:59 18:59 Intake Total 480 Balance 480 - Medications Medications: Current Medications Acetaminophen (Tylenol 325mg Tab) 650 mg PO Q4H PRN PRN Reason: Pain, Mild (1-3) Last Admin: 01/15/17 11:47 Dose: 650 mg Aspirin (Ecotrin) 81 mg PO DAILY [facility] Last Admin: 01/15/17 09:20 Dose: 81 mg Calcium Acetate (Phoslo) 667 mg PO BRKDIN [facility] Last Admin: 01/16/17 07:42 Dose: Not Given Carvedilol (Coreg) 25 mg PO BID [facility] Last Admin: 01/15/17 17:27 Dose: 25 mg Clopidogrel Bisulfate (Plavix) 75 mg PO DAILY [facility] Last Admin: 01/15/17 10:25 Dose: 75 mg Fluoxetine HCl (Prozac) 20 mg PO BID [facility] Last Admin: 01/15/17 17:28 Dose: 20 mg Insulin Detemir (Levemir) 20 unit SC HS [facility] Last Admin: 01/15/17 21:29 Dose: 20 unit Insulin Human Regular (Humulin R Med) 0 units SC [facility] PRN Reason: Protocol Last Admin: 01/16/17 07:41 Dose: Not Given Isosorbide Mononitrate (Imdur) 60 mg PO DAILY [facility] Last Admin: 01/15/17 10:25 Dose: 60 mg Lactulose (Enulose) 20 gm PO Q8 [facility] Last Admin: 01/16/17 06:12 Dose: 20 gm Lisinopril (Zestril) 20 mg PO DAILY [facility] Last Admin: 01/15/17 10:25 Dose: 20 mg Metoprolol Tartrate (Lopressor) 5 mg IVP Q6 PRN PRN Reason: Systolic Blood Pressure Last Admin: 01/13/17 20:58 Dose: 5 mg Ondansetron HCl (Zofran Inj) 4 mg IVP Q4H PRN PRN Reason: Nausea/Vomiting Last Admin: 01/15/17 12:28 Dose: 4 mg Oxycodone/Acetaminophen (Percocet 5/325 Mg Tab) 1 tab PO Q4H PRN PRN Reason: Pain, moderate (4-7) Stop: 01/18/17 13:17 Last Admin: 01/15/17 17:28 Dose: 1 tab Pantoprazole Sodium (Protonix Inj) 40 mg IVP DAILY [facility] Tamsulosin HCl (Flomax) 0.4 mg PO HS [facility] Last Admin: 01/15/17 21:28 Dose: 0.4 mg Tiotropium [place] (Spiriva) 18 mcg IH DAILY [facility] Last Admin: 01/15/17 10:25 Dose: 18 mcg - Labs Labs: 01/16/17 06:45 01/16/17 06:45 PT 17.6 Seconds (9.9-11.8) H 01/15/17 07:30 INR 1.63 (0.93-1.08) H 01/15/17 07:30 APTT 33.1 Seconds (23.7-30.8) H 01/13/17 14:35 Assessment and Plan - Assessment and Plan (Free Text) Plan: Assessment: NSTEMI CAD/PCIs/Ischemic CMP with LV EF ~25% CKD/HD Hepatitis B Pancreatitis Thrombocytopenia Rcho: Mod. MR and TR Plan: HD today As per GI, Pulm. and Dr. Agarwal. Monitor labs, I/O, sats., etc.
--- NOTE | 2017-01-16 09:41 | CP.PCM.PN ---
Subjective - Date & Time of Evaluation Date of Evaluation: 01/16/17 Time of Evaluation: 07:45 - Subjective Subjective: General surgery Progress Note for Dr. Tian Pt was seen and examined at bedside. No acute complaints at this time. As per nursing staff, pt was lethargic and hypoglyecemic this morening owever returned to baseline after administration of D50. Pt denied fever, chills, n/v/d, and states that he is hungry. Pt is for HD today. Objective - Vital Signs/Intake and Output Vital Signs (last 24 hours): Temp Pulse Resp BP Pulse Ox 97.6 F 76 20 124/76 99 01/16/17 06:00 01/16/17 06:00 01/16/17 06:00 01/16/17 06:00 01/16/17 06:00 Intake and Output: 01/16/17 01/16/17 06:59 18:59 Intake Total 480 Balance 480 - Medications Medications: Current Medications Acetaminophen (Tylenol 325mg Tab) 650 mg PO Q4H PRN PRN Reason: Pain, Mild (1-3) Last Admin: 01/15/17 11:47 Dose: 650 mg Aspirin (Ecotrin) 81 mg PO DAILY [facility] Last Admin: 01/15/17 09:20 Dose: 81 mg Calcium Acetate (Phoslo) 667 mg PO BRKDIN [facility] Last Admin: 01/16/17 07:42 Dose: Not Given Carvedilol (Coreg) 25 mg PO BID [facility] Last Admin: 01/15/17 17:27 Dose: 25 mg Clopidogrel Bisulfate (Plavix) 75 mg PO DAILY [facility] Last Admin: 01/15/17 10:25 Dose: 75 mg Fluoxetine HCl (Prozac) 20 mg PO BID [facility] Last Admin: 01/15/17 17:28 Dose: 20 mg Insulin Detemir (Levemir) 20 unit SC HS [facility] Last Admin: 01/15/17 21:29 Dose: 20 unit Insulin Human Regular (Humulin R Med) 0 units SC ACHS [facility] PRN Reason: Protocol Last Admin: 01/16/17 07:41 Dose: Not Given Isosorbide Mononitrate (Imdur) 60 mg PO DAILY [facility] Last Admin: 01/15/17 10:25 Dose: 60 mg Lactulose (Enulose) 20 gm PO Q8 [facility] Last Admin: 01/16/17 06:12 Dose: 20 gm Lisinopril (Zestril) 20 mg PO DAILY [facility] Last Admin: 01/15/17 10:25 Dose: 20 mg Metoprolol Tartrate (Lopressor) 5 mg IVP Q6 PRN PRN Reason: Systolic Blood Pressure Last Admin: 01/13/17 20:58 Dose: 5 mg Ondansetron HCl (Zofran Inj) 4 mg IVP Q4H PRN PRN Reason: Nausea/Vomiting Last Admin: 01/15/17 12:28 Dose: 4 mg Oxycodone/Acetaminophen (Percocet 5/325 Mg Tab) 1 tab PO Q4H PRN PRN Reason: Pain, moderate (4-7) Stop: 01/18/17 13:17 Last Admin: 01/15/17 17:28 Dose: 1 tab Pantoprazole Sodium (Protonix Inj) 40 mg IVP DAILY [facility] Tamsulosin HCl (Flomax) 0.4 mg PO HS [facility] Last Admin: 01/15/17 21:28 Dose: 0.4 mg Tiotropium [place] (Spiriva) 18 mcg IH DAILY [facility] Last Admin: 01/15/17 10:25 Dose: 18 mcg - Labs Labs: 01/16/17 06:45 01/16/17 06:45 PT 17.6 Seconds (9.9-11.8) H 01/15/17 07:30 INR 1.63 (0.93-1.08) H 01/15/17 07:30 APTT 33.1 Seconds (23.7-30.8) H 01/13/17 14:35 - Constitutional Appears: No Acute Distress - Head Exam Head Exam: ATRAUMATIC, NORMAL INSPECTION, NORMOCEPHALIC - Eye Exam Eye Exam: EOMI, Normal appearance, PERRL Pupil Exam: NORMAL ACCOMODATION, PERRL - ENT Exam ENT Exam: Mucous Membranes Moist, Normal Exam - Neck Exam Neck Exam: Full ROM, Normal Inspection. absent: Lymphadenopathy - Respiratory Exam Respiratory Exam: Clear to Ausculation Bilateral, NORMAL BREATHING PATTERN - Cardiovascular Exam Cardiovascular Exam: REGULAR RHYTHM, +S1, +S2. absent: Murmur - GI/Abdominal Exam GI & Abdominal Exam: Soft, Tenderness (mild epigastric TTP), Normal Bowel Sounds - Extremities Exam Extremities Exam: Full ROM, Normal Capillary Refill, Normal Inspection. absent : Joint Swelling, Pedal Edema - Neurological Exam Neurological Exam: Alert, Awake, CN II-XII Intact, Oriented x3 - Psychiatric Exam Psychiatric exam: Normal Affect, Normal Mood - Skin Skin Exam: Dry, Intact, Normal Color, Warm Assessment and Plan - Assessment and Plan (Free Text) Assessment: 66M with Pancreatitis and elevated LFTs - Pt is for HD Today - MRCP will be arranged to investigate abn LFTs and pancreatic enzymes -continue medical management Seen reviewed and discussed with attending Pablito Cook, PGY1
--- NOTE | 2017-01-16 09:56 | PN ---
DATE: 01/16/2017 SUBJECTIVE: The patient has no complaints of any chest pain, no shortness of breath, no headaches or dizziness. PHYSICAL EXAMINATION: VITAL SIGNS: Temperature is 97.6, pulse is 76, blood pressure 124/76, respirations 20. GENERAL: The patient comfortable, in no acute distress. HEENT: Anicteric sclerae. Moist mucosa. NECK: No JVD or adenopathy. CARDIAC: S1/S2. No murmurs. No rubs. Regular. RESPIRATORY: Clear to auscultation bilaterally. No wheezes, rales, or rhonchi. Good air entry. ABDOMEN: Bowel sounds are positive, soft, nontender, and nondistended. EXTREMITIES: No edema. Has 1+ pulses. ASSESSMENT: 1. Pancreatitis. 2. End-stage renal disease, on hemodialysis. 3. Eju-VG-ggmyioecp myocardial infarction. 4. Acute hepatitis. 5. Left arm arteriovenous fistula. 6. Diabetes, type 2. 7. Secondary hyperparathyroidism. 8. Hypertension. 9. Anemia. 10. Noncompliance. 11. Right knee pain. PLAN: The patient is currently comfortable. He had an x-ray of the right knee that showed no eviden ce of fracture or arthritis. The patient is on carvedilol. He is receiving lactulose. The patient is on Flomax for his BPH. He is on Levemir for his diabetes. He is receiving Lopressor. He is on P hosLo for his secondary hyperparathyroidism. Phosphorus level is high. Will place the patient on Re demian with meals. I did speak to Dr. Gaytan regarding the case. Maurice Agarwal MD cc: [id number] TT: 01/16/2017 09:55:34 Confirmation # [id number] Dictation # [id number] mn
[2017-01-16] MEDS: Tiotropium 18 mcg Cap For Inhalation IH SCH (10:47)
[2017-01-16] MEDS: Metoprolol 1 mg/ml Inj IVP PRN (11:06)
--- NOTE | 2017-01-16 13:11 | PN ---
DATE: 01/16/2017 SUBJECTIVE: Seen and examined at the bedside this afternoon. He had dialysis today. Tolerating the full liquid. No nausea, vomiting, or abdominal pain. Having formed stool. No reports of any bleed ing. VITAL SIGNS: Temperature is 97.8, blood pressure 127/79, pulse 69, respirations 20. LABORATORY DATA: Today sodium 133, K 5.1, BUN is 22, creatinine 89. The patient had dialysis this m orning. Total bilirubin is 3.9. His AST is 713, ALT 1493. Troponin is going down at 1.68. CBC: WBC 6.38, hemoglobin 11.3, hematocrit 32.2, platelets are 95. Hep panel is negative. PHYSICAL EXAMINATION: HEENT: Sclerae are anicteric. NECK: Supple. CARDIAC: S1, S2. LUNGS: With decreased breath sounds, but good air entry. No rales or wheeze. ABDOMEN: With bowel sounds. Soft, nondistended. Nontender on palpation. No rebound. No guarding. EXTREMITIES: No edema. ASSESSMENT: This patient with pancreatitis noted to have elevated liver enzymes which is slowly impr oving, although his bilirubin is noted to have become elevated. He did have an ultrasound that was n egative for gallstones. The patient with history of end-stage renal disease, on dialysis. The patie nt had some change in mental status. Thought he may have had some hepatic encephalopathy secondary t o the acute liver failure, which has improved. He was found to have an elevated troponin level. Rul e out non-ST myocardial infarction. PLAN: The patient's bilirubin is elevated this morning slightly. We will request for an MRCP with M [facility] without contrast for further evaluation. For now, we will continue the full liquid diet. Continu e to monitor liver enzymes. He is on Plavix and aspirin. He is also on lactulose, PPI. We will fol low up the MRI. The patient was seen and case discussed with Dr. Gaytan. Inna Palafox DONG cc: [id number] TT: 01/16/2017 13:11:02 Confirmation # [id number] Dictation # [id number] dn
[2017-01-16] MEDS ORDERED: Bupivacaine 0.5% Inj(30mL) IJ ONE (15:23)
[2017-01-16] MEDS ORDERED: MethylPREDNISolone Depo 40 mg/ml Inj IM ONE (15:23)
[2017-01-16] MEDS ORDERED: oxyCODONE 5 mg Immediate Release Tab PO PRN (16:36)
--- NOTE | 2017-01-16 17:13 | CON ---
DATE: 01/16/2017 A 66-year-old male, right now in room 271, bed 1. He has abrasion of his right knee. X-rays of the right knee were within normal limits and he can move it appropriately. There is no effusion. He is confused. I will order physical therapy to get him moving, so he does not become symptomatic with stiffness and hopefully they can accomplish ambulation with a walker when he gets a little more alert as he did get a neurology consult. Will follow him closely. I will be away for a week. Dr. cortes is covering for me until then. He will not need too much attention other than therapy. Aman Hastings DO cc: [id number] TT: 01/16/2017 17:12:21 Confirmation # [id number] Dictation # [id number] june NASH
--- NOTE | 2017-01-16 18:36 | MRI ---
PROCEDURE: Magnetic Resonance Cholangiopancreatography HISTORY: Pancreatitis elevated liver function tests. COMPARISON: Comparison is made to the previous ultrasound of the abdomen dated 01/14/2017. TECHNIQUE: Multiplanar, multisequence MR images of the abdomen were obtained, including heavily T2 weighted MRCP images of the biliary system. Rotating maximum intensity projection images of the biliary system were generated. FINDINGS: MRCP: The common bile duct is of a normal caliber. No evidence of choledocholithiasis. No intrahepatic biliary ductal dilatation. LIVER: No evidence of acute pathology or suspicious mass in the liver GALLBLADDER: Unremarkable. SPLEEN: Unremarkable. PANCREAS: The pancreas is mildly enlarged. The main pancreatic duct is slightly dilated. ADRENALS: No definite evidence of mass lesion. KIDNEYS: Unremarkable. AORTA: No aneurysm. ASCITES: Small amount of free fluid seen in the upper abdomen. OTHER FINDINGS: None. IMPRESSION: Limited study due to the patient's motion. No evidence of cholelithiasis or cholecystitis. Normal caliber CBD without evidence of choledocholithiasis. Mildly enlarged pancreas.
[2017-01-16] MEDS: Insulin Detemir 100 units/ml Vial (Levemir) SC SCH (21:34)
--- NOTE | 2017-01-17 00:37 | PN ---
DATE: 01/16/2017 ADDENDUM: SUBJECTIVE: This patient was seen and evaluated earlier. This is an addendum to the gastrointestina l progress report dictated by Inna Palafox APN. The patient's bilirubin has gone up. The patient di d have mildly elevated LFTs when came in. Would recommend, at this point, to get the MRI of the abdo men without contrast to further evaluate the pancreas, liver and also common bile duct. LABORATORY DATA: Total bilirubin has gone up to 3.9. The elevated transaminases showing improving t rend. Troponin is elevated to 1.68. IMPRESSION: This 66-year-old patient admitted with end-stage renal disease on hemodialysis, admitted with acute liver failure, etiology is unclear. The patient also has mildly elevated pancreatic enzy mes and the MRCP was requested, which was reviewed later. It showed no common bile duct stones. Sli ghtly prominent pancreas. The patient also has a non-ST segment myocardial infarction. PLAN: The plan is to follow up the LFTs. Hepatitis serology is reviewed and negative. Continue to closely follow up her care. Fawn Gaytan MD cc: [id number] TT: 01/17/2017 00:36:40 Confirmation # [id number] Dictation # [id number] june
[2017-01-17 07:25] LABS: ALB/GLOB RATIO 1.1 (1.1-1.8); BILIRUBIN,TOTAL 3.9 mg/dL (0.2-1.3); CALCIUM 8.4 mg/dL (8.4-10.5); POTASSIUM 4.5 mmol/L (3.6-5.0); TOTAL PROTEIN 5.9 g/dL (5.8-8.3)
--- NOTE | 2017-01-17 07:28 | CP.PCM.PN ---
Subjective - Date & Time of Evaluation Date of Evaluation: 01/17/17 Time of Evaluation: 07:25 - Subjective Subjective: General surgery Progress Note for Oumar Bonilla PGY 1 Patient seen and examined at bedside this morning in conjunction with surgical team. No acute overnight events or new complaints. Patient denied chest pain, palpitations, SOB. Objective - Vital Signs/Intake and Output Vital Signs (last 24 hours): Temp Pulse Resp BP Pulse Ox 97.5 F L 71 18 129/82 99 01/16/17 16:00 01/16/17 18:11 01/16/17 16:00 01/16/17 18:11 01/16/17 16:00 Intake and Output: 01/17/17 01/17/17 06:59 18:59 Intake Total 540 Balance 540 - Medications Medications: Current Medications Aspirin (Ecotrin) 81 mg PO DAILY [facility] Last Admin: 01/16/17 10:45 Dose: 81 mg Carvedilol (Coreg) 25 mg PO BID [facility] Last Admin: 01/16/17 18:11 Dose: 25 mg Clopidogrel Bisulfate (Plavix) 75 mg PO DAILY [facility] Last Admin: 01/16/17 10:46 Dose: 75 mg Fluoxetine HCl (Prozac) 20 mg PO BID [facility] Last Admin: 01/16/17 18:11 Dose: 20 mg Insulin Human Regular (Humulin R Med) 0 units SC ACHS [facility] PRN Reason: Protocol Last Admin: 01/16/17 21:34 Dose: Not Given Isosorbide Mononitrate (Imdur) 60 mg PO DAILY [facility] Last Admin: 01/16/17 10:45 Dose: 60 mg Lactulose (Enulose) 20 gm PO Q8 [facility] Last Admin: 01/16/17 21:36 Dose: 20 gm Lisinopril (Zestril) 20 mg PO DAILY [facility] Last Admin: 01/16/17 10:47 Dose: 20 mg Metoprolol Tartrate (Lopressor) 5 mg IVP Q6 PRN PRN Reason: Systolic Blood Pressure Last Admin: 01/16/17 11:06 Dose: 5 mg Ondansetron HCl (Zofran Inj) 4 mg IVP Q4H PRN PRN Reason: Nausea/Vomiting Last Admin: 01/15/17 12:28 Dose: 4 mg Oxycodone HCl (Oxycodone Immediate Release Tab) 5 mg PO Q4 PRN PRN Reason: MOD PAIN [4-7] Pantoprazole Sodium (Protonix Inj) 40 mg IVP DAILY [facility] Last Admin: 01/16/17 10:46 Dose: 40 mg Sevelamer HCl (Renagel) 1,600 mg PO TID [facility] Last Admin: 01/16/17 18:10 Dose: 1,600 mg Tamsulosin HCl (Flomax) 0.4 mg PO HS [facility] Last Admin: 01/16/17 21:36 Dose: 0.4 mg Tiotropium [place] (Spiriva) 18 mcg IH DAILY [facility] Last Admin: 01/16/17 10:47 Dose: 18 mcg - Labs Labs: 01/16/17 06:45 01/16/17 06:45 PT 17.6 Seconds (9.9-11.8) H 01/15/17 07:30 INR 1.63 (0.93-1.08) H 01/15/17 07:30 APTT 33.1 Seconds (23.7-30.8) H 01/13/17 14:35 - Head Exam Head Exam: ATRAUMATIC, NORMAL INSPECTION, NORMOCEPHALIC - Eye Exam Eye Exam: EOMI, PERRL - ENT Exam ENT Exam: Mucous Membranes Moist - Neck Exam Neck Exam: Normal Inspection - Respiratory Exam Respiratory Exam: Clear to Ausculation Bilateral. absent: Rales, Rhonchi, Wheezes - Cardiovascular Exam Cardiovascular Exam: RRR, +S1, +S2. absent: Gallop, Rubs - GI/Abdominal Exam GI & Abdominal Exam: Soft. absent: Distended, Firm, Guarding, Rigid, Rebound - Extremities Exam Extremities Exam: Normal Inspection - Neurological Exam Neurological Exam: Alert, Awake - Psychiatric Exam Psychiatric exam: Normal Affect, Normal Mood - Skin Skin Exam: Dry, Intact, Normal Color, Warm Assessment and Plan - Assessment and Plan (Free Text) Plan: 66M with history of ESRD on HD, CAD, HTN presents with altered mental status, abdominal pain and elevated LFT's and lipase. Surgery consulted for evaluation of pancreatitis 1. Abd U/S no acute findings related to/accounting for the clinical presentation ; No portal vein thrombosis 2. MRCP revealed no acute findings; CBD normal caliber; no choledocholithiasis 3. CT abd/pelvis reviewed 4. No acute surgical intervention at this time 5. Follow up GI recommendations; consider endoscopic ultrasound for further evaluation of elevated LFT's 6. Continue current medical management as per primary team Case discussed with attending, Dr. Tian
[2017-01-17 07:34] LABS: INR 1.36 (0.93-1.08)
--- NOTE | 2017-01-17 07:41 | PN ---
DATE: 01/17/2017 SUBJECTIVE: The patient has no complaints of any chest pain, no shortness of breath, no headaches, n o dizziness. PHYSICAL EXAMINATION: VITAL SIGNS: Temperature is 97.5, pulse 71, blood pressure is 129/82, respirations 18. GENERAL: The patient comfortable, in no acute distress. HEENT: Anicteric sclerae. Moist mucosa. NECK: No JVD or adenopathy. CARDIAC: S1/S2. No murmurs. No rubs. Regular. RESPIRATORY: Clear to auscultation bilaterally. No wheezes, rales, or rhonchi. Good air entry. ABDOMEN: Bowel sounds are positive, soft, nontender, and nondistended. EXTREMITIES: No edema. Has 1+ pulses. MRCP is a limited study due to motion artifact, no evidence of cholelithiasis or cholecystitis, nicolette l caliber common bile duct. ASSESSMENT: 1. Delirium, improved. 2. End-stage renal disease, on hemodialysis. 3. Pancreatitis. 4. Non-ST elevation myocardial infarction. 5. Acute hepatitis, unknown etiology. 6. Left arm arteriovenous fistula. 7. Diabetes type 2. 8. Secondary hyperparathyroidism. 9. Hypertension. 10. Anemia. 11. Right knee pain. PLAN: The patient is currently comfortable. Hemoglobin is stable at 11. His hep A, B and C have be en negative. He had a hypoglycemic episode yesterday. I will stop his insulin to see what his sugar s are without being on the Levemir. I had decreased his insulin, a significant drop by about 50%. Supa plasencia is on lisinopril for hypertension. He is on Renagel for his secondary hyperparathyroidism. Waitin g to see if he can go to the transitional care unit or subacute rehabilitation. I did speak to the nehal patton's yesterday to give her an update on the patient's diagnosis and plan of care. I also german Hastings evaluate the patient. The patient is waiting to be seen by physical therapy as we ll. Maurice Agarwal MD cc: [id number] TT: 01/17/2017 07:40:37 Confirmation # [id number] Dictation # [id number] en
[2017-01-17] MEDS: Insulin Reg-MEDIUM-Coverage SC SCH ×2 (08:10→12:19)
[2017-01-17 08:15] VITALS: RESP 20; TEMP 97.7; O2SAT 98
[2017-01-17] MEDS: Tiotropium 18 mcg Cap For Inhalation IH SCH (09:50)
[2017-01-17 09:57] VITALS: BP 120/70; PULSE 80
--- NOTE | 2017-01-17 12:53 | PN ---
DATE: 01/17/2017 Seen and examined at the bedside this afternoon. The patient denies any nausea, vomiting. He is prema erating oral intake. No complaints of abdominal pain. He did report having a soft bowel movement. Denies any melena or bright red blood. LABORATORIES: Today, CMP: Sodium 136, K 4.5, BUN 52, creatinine is 5.7, total bilirubin is 3.9, AST is 536, ALT 1345, alk phos is 163. There is showing a downward trend. He went for an MRCP yesterday and that reported that the common bile duct was normal. No evidence of choledocholithiasis or any intrahepatic biliary ductal dilatation. No acute evidence of pathology o r suspicious mass in the liver. The pancreas is mildly enlarged. The main pancreatic duct is slight ly dilated. PHYSICAL EXAMINATION: HEENT: Sclerae is slightly icteric. NECK: Supple. CARDIAC: S1, S2. LUNG SOUNDS: Clear. No rales or wheeze. ABDOMEN: With bowel sounds, soft, not distended, nontender on palpation. No organomegaly. EXTREMITIES: No edema. NEUROLOGIC: Awake, alert, and oriented. ASSESSMENT: This is a 66-year-old male with a history of end-stage renal disease on dialysis, diabet es type 2, hypertension and is found to have altered mental status, but has improved. The patient wa s found to have acute hepatitis, thought may have hepatic encephalopathy. The patient is now alert, awake and oriented. He was noted to have pancreatitis, non-ST elevation myocardial infarction. The patient did have magnetic resonance cholangiopancreatography done, which was negative for common bile duct stones. The common bile duct with no dilatation. The pancreas was reported to be enlarged and the main pancreatic duct is slightly dilated. PLAN: Continue to trend liver enzymes, which is slowly trending down. He is on aspirin and Plavix. He gets lactulose, hold for any diarrhea. Continue PPI. The patient will likely be transferred to TCU. If liver enzymes show an upward trend, then maybe consider liver biopsy. The patient was seen and case discussed with Dr. Gaytan. Inna UMANA cc: [id number] TT: 01/17/2017 12:52:59 Confirmation # [id number] Dictation # [id number] en
--- NOTE | 2017-01-18 02:32 | PN ---
DATE: 01/17/2017 ADDENDUM: This is an addendum to the GI progress report dictated by Inna Palafox APN. SUBJECTIVE: The patient was admitted with acute liver failure, is improving. The patient also had e levated pancreatic enzymes. Ultrasound did not show any stones; however, in view of these elevated p ancreatic enzymes, we requested for MRI without contrast. LABORATORY DATA: The patient has end-stage renal disease, on hemodialysis. It showed normal common bile duct with no stones, mildly enlarged pancreas, no focal lesion otherwise. The pancreatic duct a ppears to be mildly dilated. Is slightly because of the motion artifact. The patient's total bilirubin remains elevated at 3.9, AST 536, ALT is 1345. His INR is improving. IMPRESSION: The patient is improving from acute liver failure. Thank you very much for allowing us to participate in the care of the patient. Fawn Gaytan MD cc: [id number] TT: 01/18/2017 02:31:34 Confirmation # [id number] Dictation # [id number] june
--- NOTE | 2017-03-16 08:31 | DS ---
DISCHARGE SUMMARY: The patient was initially admitted to the hospital. He has end-stage renal disease, on hemodialysis, and had pancreatitis. Please see the notes as dictated on 01/17/2017 for discharge information. Maurice Agarwal MD
== END 2017-01-17 15:47 | DRG 438 ==
LOC: ED 05:22 → ERH 11:15 → 5RSO 12:08 → ERH 12:17 → CCU 20:06 → 2RNO 01-14 21:02 → 5RSO 01-16 13:45
PROVIDERS: ADMIT Internal Medicine Nephrology; ATTEND Internal Medicine Nephrology
PROC: 5A1D00Z (ICD-10-PCS; principal; 2017-01-16)
DX: K85.90 Acute pancreatitis without necrosis or infection, unspecified (principal); K72.00 Acute and subacute hepatic failure without coma; I21.4 Non-ST elevation (NSTEMI) myocardial infarction; G93.41 Metabolic encephalopathy; N18.6 End stage renal disease; D68.9 Coagulation defect, unspecified; N17.9 Acute kidney failure, unspecified; I12.0 Hypertensive chronic kidney disease with stage 5 chronic kidney disease or end stage renal disease; N25.81 Secondary hyperparathyroidism of renal origin; B17.9 Acute viral hepatitis, unspecified; R47.01 Aphasia; E11.22 Type 2 diabetes mellitus with diabetic chronic kidney disease; Z99.2 Dependence on renal dialysis; E78.5 Hyperlipidemia, unspecified; I25.10 Atherosclerotic heart disease of native coronary artery without angina pectoris; D64.9 Anemia, unspecified; K29.70 Gastritis, unspecified, without bleeding; K20.9 Esophagitis, unspecified; I16.0 Hypertensive urgency; N40.0 Benign prostatic hyperplasia without lower urinary tract symptoms; K21.9 Gastro-esophageal reflux disease without esophagitis; J44.9 Chronic obstructive pulmonary disease, unspecified; I25.5 Ischemic cardiomyopathy; D69.59 Other secondary thrombocytopenia; M25.561 Pain in right knee; E87.5 Hyperkalemia; Z91.19 Patient's noncompliance with other medical treatment and regimen; Z87.11 Personal history of peptic ulcer disease; Z95.5 Presence of coronary angioplasty implant and graft; Z95.1 Presence of aortocoronary bypass graft; Z87.891 Personal history of nicotine dependence; Z83.3 Family history of diabetes mellitus

== ENCOUNTER 2017-01-17 15:50 | Inpatient (IN) | payer OTHER ==
[2017-01-17] MEDS ORDERED: Metoprolol 1 mg/ml Inj IVP PRN (17:07)
[2017-01-17] MEDS ORDERED: FLUoxetine Elix 20 MG/5 ML PO SCH (18:00)
[2017-01-17] MEDS: Insulin Reg-MEDIUM-Coverage SC SCH (21:57)
[2017-01-18] MEDS: oxyCODONE 5 mg Immediate Release Tab PO PRN (01:29)
[2017-01-18] MEDS: Insulin Reg-MEDIUM-Coverage SC SCH ×4 (08:30→22:04)
[2017-01-18 09:20] LABS: CHOLESTEROL 130 mg/dL (130-200)
[2017-01-18] MEDS: Tiotropium 18 mcg Cap For Inhalation IH SCH (10:17)
[2017-01-18 11:11] LABS: ALB/GLOB RATIO 1.1 (1.1-1.8); BILIRUBIN,DIRECT 2.4 mg/dL (0.0-0.4); BILIRUBIN,TOTAL 2.9 mg/dL (0.2-1.3); TOTAL PROTEIN 5.4 g/dL (5.8-8.3)
--- NOTE | 2017-01-18 11:35 | PN ---
DATE: 01/18/2017 Seen and examined at the bedside in TCU this morning. His was there. The patient denies any na usea, vomiting, or abdominal pain. Tolerating oral intake. Had more detailed discussion with the robbin akins's at the bedside, who reported that the patient had eaten some sahu goat on Monday. Next day, he had nausea, vomiting, unable to tolerate any oral intake, even refusing to drink Gatorade. The patient was dehydrated and also had missed his regular dialysis. The patient now tolerating oral intake. No episodes of nausea, vomiting, diarrhea or complaints of pain. VITAL SIGNS: Temperature is 97.7, blood pressure is 111/65, pulse 65, respirations 18, 98% on room a ir. LABORATORIES: Pending liver profile. Incidentally, lipid panel was ordered, but not by my request, and it is okay. LDL cholesterol is low. PHYSICAL EXAMINATION: HEENT: Sclera is anicteric. NECK: Supple. CARDIAC: S1, S2. LUNG SOUNDS: Clear. ABDOMEN: With bowel sounds, soft, nontender. No rebound or guarding. ASSESSMENT: A 66-year-old male with history of end-stage renal disease on dialysis, history of diabe marisela mellitus type 2, hypertension, found to have altered mental status. Looks like the patient had l teresa a gastroenteritis at home with nausea, vomiting after intake of maybe goat sahu, was dehydrated, maybe some ____ state ended up, and found to have acute hepatitis. The patient with pancreatitis an d non-ST elevation myocardial infarction. We did send the patient for magnetic resonance cholangiopa ncreatography, which was negative for common bile duct stones. He was found to have enlarged pancrea s and some slight dilation of the main pancreatic duct. PLAN: We will continue to trend the liver enzymes. Continue his diet as tolerated. The patient rem ains on lactulose, is on PPI, which we will change to p.o. The patient is on aspirin and Plavix. Co ntinue to follow up the liver enzymes. Continue the diet. Monitor LFTs. The patient was seen and case discussed with Dr. Gaytan. Inna UMANA cc: [id number] TT: 01/18/2017 10:58:16 Confirmation # [id number] Dictation # [id number] en 01/18/2017 10:34:39
--- NOTE | 2017-01-18 13:24 | PN ---
DATE: 01/18/2017 SUBJECTIVE: The patient is seen on the TCU. He is being prepared for transfer to a dialysis unit th is morning. He feels better with improved mental status. His abdominal discomfort is improved as we ll. CURRENT MEDICATIONS: Include carvedilol 25 mg b.i.d., Ecotrin, lactulose, Flomax, insulin, Imdur 60 mg daily, oxycodone, Plavix 75 mg daily, Protonix, Prozac, Renagel, Spiriva, Zestril and Zofran. OBJECTIVE: GENERAL: He is a middle-aged man who appears comfortable at rest. VITAL SIGNS: His blood pressure is 106/72 with a pulse of 66 and regular, respirations are 14. He i s afebrile. HEENT: No JVD. CHEST: Bilateral scattered rhonchi. HEART: PMI displaced laterally with soft tones noted. ABDOMEN: Soft, nontender, normoactive bowel sounds. EXTREMITIES: No edema. DIAGNOSTIC DATA: Bilirubin is 2.9, AST and ALT 187 and 775, alkaline phosphatase 155. IMPRESSION: 1. Coronary artery disease, status post recent non-ST segment elevation myocardial infarction. 2. Pancreatitis, clinically improved. 3. Acute hepatitis, etiology uncertain. 4. Known coronary artery disease, status post remote myocardial infarction and percutaneous coronary intervention, stable at present. RECOMMENDATIONS: Current medications will be continued. Conservative cardiac management is planned for now. We will follow along as needed. Guanaco Evans MD cc: [id number] TT: 01/18/2017 13:23:48 Confirmation # [id number] Dictation # [id number] tn
[2017-01-18] MEDS ORDERED: Pantoprazole 40 mg EC Tab PO ONE (17:00)
--- NOTE | 2017-01-18 19:56 | CON ---
DATE: 01/18/2017 This is a 66-year-old male who was transferred to [facility] and went for dialysis and had a change in ment al status, which appeared improved after dialysis also complained of pain in the knees and lowe r back. Called to evaluate the patient. CURRENT MEDICATIONS: Carvedilol, Ecotrin, Flomax, Imdur, oxycodone, Plavix. PHYSICAL EXAMINATION: HEENT: Normocephalic, atraumatic. NECK: Supple. NEUROLOGIC: Alert, awake, oriented to self. Cranial nerves II-XII were tested. Pupils reactive. S pontaneous movement of the extremities noted. Deep tendon reflexes 1+. Both plantars downgoing. Se nsory appears intact. Cerebellar, gait deferred. IMPRESSION: Altered mental status, encephalopathy, possibly toxic metabolic. The patient also has a history of pancreatitis and hepatitis and coronary artery disease. Continue present management. We will follow up. Con Wu MD cc: [id number] TT: 01/18/2017 19:55:35 Confirmation # [id number] Dictation # [id number] en
--- NOTE | 2017-01-19 01:02 | PN ---
DATE: 01/18/2017 ADDENDUM: This is an addendum to the GI progress report dictated by Inna Palafox APN. SUBJECTIVE: The patient's was at bedside. We had a detailed discussion with the patient's . She mentioned to me that the patient had a goat sahu. After that, the patient had a stomach upset, did not have p.o. intake for close to 2 days. The patient was brought to the Emergency Room. After dialysis, was found to be in acute liver failure. IMPRESSION: Most likely cause to be considered is volume depletion causing acute liver failure. In this case, Hepatitis profile has been negative. The patient's ultrasound also has been reviewed. No stones. Additionally, the patient also had a mild pancreatic enzyme elevation, but MRCP did not show any focal pancreatic lesion. Mildly prominent duct was present and this area was slightly limited also. PLAN: The reasonable thing is to follow with conservative management at the present time. Followup of the LFTs. Thank you very much for allowing us to participate in the care of the patient. This is an addendum to the GI progress report dictated by Inna Palafox APN. Fawn Gaytan MD cc: [id number] TT: 01/19/2017 01:01:26 Confirmation # [id number] Dictation # [id number] mn SAAD
[2017-01-19] MEDS: Pantoprazole 40 mg EC Tab PO SCH (06:16)
[2017-01-19] MEDS: Insulin Reg-MEDIUM-Coverage SC SCH ×4 (06:30→21:52)
[2017-01-19] MEDS ORDERED: Pantoprazole 40 mg EC Tab PO SCH (07:30)
[2017-01-19 07:40] LABS: BILIRUBIN,DIRECT 2.1 mg/dL (0.0-0.4); BILIRUBIN,TOTAL 2.7 mg/dL (0.2-1.3); TOTAL PROTEIN 5.8 g/dL (5.8-8.3)
[2017-01-19] MEDS: Tiotropium 18 mcg Cap For Inhalation IH SCH (12:57)
[2017-01-19] MEDS: oxyCODONE 5 mg Immediate Release Tab PO PRN (21:47)
[2017-01-20] MEDS: Insulin Reg-MEDIUM-Coverage SC SCH ×4 (06:31→21:43)
[2017-01-20] MEDS: Pantoprazole 40 mg EC Tab PO SCH (06:32)
[2017-01-20 08:24] LABS: ALB/GLOB RATIO 1.1 (1.1-1.8); BILIRUBIN,DIRECT 1.7 mg/dL (0.0-0.4); TOTAL PROTEIN 5.6 g/dL (5.8-8.3)
--- NOTE | 2017-01-20 08:34 | PN ---
DATE: 01/20/2017 SUBJECTIVE: The patient has no complaints of any chest pain, no shortness of breath, no headaches, n o dizziness. PHYSICAL EXAMINATION: VITAL SIGNS: Temperature is 97.8, pulse is 72, blood pressure is 131/97, respirations 18. GENERAL: The patient comfortable, in no acute distress. HEENT: Anicteric sclerae. Moist mucosa. NECK: No JVD or adenopathy. CARDIAC: S1/S2. No murmurs. No rubs. Regular. RESPIRATORY: Clear to auscultation bilaterally. No wheezes, rales, or rhonchi. Good air entry. ABDOMEN: Bowel sounds are positive, soft, nontender, and nondistended. EXTREMITIES: No edema. Has 1+ pulses. ASSESSMENT: 1. End-stage renal disease, on hemodialysis. 2. Delirium, improved. 3. Pancreatitis. 4. Non-ST elevation myocardial infarction. 5. Acute hepatitis. 6. Left arteriovenous fistula. 7. Diabetes type 2. 8. Secondary hyperparathyroidism. 9. Hypertension. 10. Anemia. 11. Right knee pain. PLAN: The patient is currently comfortable. He is getting physical therapy. He is on carvedilol. He continues dialysis treatment. He is on his Plavix. He is going to be on oxycodone for pain. He is on Prozac. He is on Zestril. I will discontinue his Zofran. He is on a renal diet. Maurice Agarwal MD cc: [id number] TT: 01/20/2017 08:33:48 Confirmation # [id number] Dictation # [id number] en
--- NOTE | 2017-01-20 11:15 | CP.PCM.PCO ---
Physician Communication Note - Physician Communication Note Physician Communication Note: ams was toxic metabolic. C/W PT & monitor electrolytes. Sign off.
[2017-01-20] MEDS: Tiotropium 18 mcg Cap For Inhalation IH SCH (11:19)
[2017-01-20 14:43] LABS: ADD MANUAL DIFF? NO
[2017-01-20 14:52] LABS: BASO # 0.01 K/mm3 (0.0-2.0); BASO % 0.2 % (0.0-3.0); EOS # 0.3 (0.0-0.7); EOS % 4.8 % (1.5-5.0); GRAN # 3.99 (1.4-6.5); GRAN % 69.1 % (50.0-68.0); HEMATOCRIT 31.7 % (42.0-52.0); LYMPH # 0.6 (1.2-3.4); LYMPH % 10.7 % (22.0-35.0); MEAN CELL VOLUME 92.7 fL (80.0-105.0); MEAN CORPUSCULAR HGB CONC 33.4 g/dl (31.0-37.0); MEAN PLATELET VOLUME 11.2 fl (7.0-11.0); MONO # 0.9 (0.1-0.6); MONO % 15.2 % (1.0-6.0); PLATELET COUNT 102 10^3/uL (120.0-450.0); RED CELL DISTRIBUTION WIDTH 16.8 % (11.5-14.5); WHITE BLOOD COUNT 5.8 10^3/ul (4.5-11.0)
[2017-01-20 15:03] LABS: BILIRUBIN,TOTAL 1.8 mg/dL (0.2-1.3); CALCIUM 8.3 mg/dL (8.4-10.5); POTASSIUM 4.9 mmol/L (3.6-5.0); TOTAL PROTEIN 5.3 g/dL (5.8-8.3)
--- NOTE | 2017-01-20 16:37 | CP.PCM.PN ---
Subjective - Date & Time of Evaluation Date of Evaluation: 01/20/17 Time of Evaluation: 10:50 - Subjective Subjective: Seen and examined at bedside earlier today. No N/V, didn't sleep well last night , dosing off but easily arousable. No N/V or abdominal pain. Having formed BM, no bleeding. Objective - Vital Signs/Intake and Output Vital Signs (last 24 hours): Temp Pulse Resp BP Pulse Ox 97.6 F 71 19 120/76 99 01/20/17 10:00 01/20/17 10:00 01/20/17 10:00 01/20/17 10:00 01/20/17 10:00 - Medications Medications: Current Medications Aspirin (Ecotrin) 81 mg PO 0800 [facility] PRN Reason: Protocol Last Admin: 01/20/17 11:18 Dose: Not Given Carvedilol (Coreg) 25 mg PO 0800,1800 [facility] PRN Reason: Protocol Last Admin: 01/20/17 09:56 Dose: Not Given Clopidogrel Bisulfate (Plavix) 75 mg PO 0[facility] Last Admin: 01/20/17 11:19 Dose: Not Given Diphenhydramine HCl (Benadryl) 50 mg PO HS PRN PRN Reason: Insomnia Fluoxetine HCl (Prozac) 20 mg PO BID [facility] PRN Reason: Protocol Last Admin: 01/20/17 11:19 Dose: Not Given Insulin Human Regular (Humulin R Med) 0 units SC ACHS [facility] PRN Reason: Protocol Last Admin: 01/20/17 13:17 Dose: Not Given Isosorbide Mononitrate (Imdur) 60 mg PO 0600 [facility] PRN Reason: Protocol Last Admin: 01/20/17 06:32 Dose: 60 mg Lactulose (Enulose) 20 gm PO Q8 [facility] PRN Reason: Protocol Last Admin: 01/20/17 05:56 Dose: Not Given Lisinopril (Zestril) 20 mg PO DAILY [facility] PRN Reason: Protocol Last Admin: 01/20/17 11:19 Dose: Not Given Oxycodone HCl (Oxycodone Immediate Release Tab) 5 mg PO Q4H PRN; Protocol PRN Reason: Pain, moderate (4-7) Last Admin: 01/19/17 21:47 Dose: 5 mg Pantoprazole Sodium (Protonix Ec Tab) 40 mg PO 0600 [facility] PRN Reason: Protocol Last Admin: 01/20/17 06:32 Dose: 40 mg Sevelamer HCl (Renagel) 1,600 mg PO 0800,1200,1700 [facility] PRN Reason: Protocol Last Admin: 01/20/17 08:51 Dose: 1,600 mg Tamsulosin HCl (Flomax) 0.4 mg PO HS [facility] PRN Reason: Protocol Last Admin: 01/19/17 21:49 Dose: 0.4 mg Tiotropium [place] (Spiriva) 18 mcg IH DAILY [facility] PRN Reason: Protocol Last Admin: 01/20/17 11:19 Dose: 18 mcg - Labs Labs: 01/20/17 14:32 01/20/17 14:32 - Constitutional Appears: No Acute Distress - Head Exam Head Exam: NORMOCEPHALIC - Eye Exam Eye Exam: Normal appearance. absent: Scleral icterus - ENT Exam ENT Exam: Mucous Membranes Moist - Neck Exam Neck Exam: Normal Inspection - Respiratory Exam Respiratory Exam: Clear to Ausculation Bilateral, NORMAL BREATHING PATTERN. absent: Respiratory Distress - Cardiovascular Exam Cardiovascular Exam: +S1, +S2 - GI/Abdominal Exam GI & Abdominal Exam: Soft, Normal Bowel Sounds. absent: Guarding, Tenderness, Rebound - Neurological Exam Neurological Exam: Awake, Oriented x3 - Skin Skin Exam: Dry, Warm Assessment and Plan - Assessment and Plan (Free Text) Assessment: ASSESSMENT: Acute Liver Failure, ? dehydration ESRD, on HD Pancreatitis NSTEMI DM type PLAN: Trend LFT diet as tolerated continue lactulose cont PPI on ASA and Plavix Discussed with Dr. Gaytan.
[2017-01-20] MEDS: oxyCODONE 5 mg Immediate Release Tab PO PRN (21:29)
[2017-01-21] MEDS: Pantoprazole 40 mg EC Tab PO SCH (05:45)
[2017-01-21] MEDS: Insulin Reg-MEDIUM-Coverage SC SCH ×5 (06:41→23:15)
[2017-01-21 08:10] LABS: BILIRUBIN,DIRECT 1.5 mg/dL (0.0-0.4); TOTAL PROTEIN 5.5 g/dL (5.8-8.3)
[2017-01-21] MEDS: Tiotropium 18 mcg Cap For Inhalation IH SCH (10:02)
[2017-01-21] MEDS: oxyCODONE 5 mg Immediate Release Tab PO PRN (10:56)
[2017-01-21] MEDS ORDERED: guaiFENesin DM 100 mg-10 mg/5 ml UD PO SCH (14:45)
[2017-01-21] MEDS: guaiFENesin DM 100 mg-10 mg/5 ml UD PO PRN (17:45)
[2017-01-22] MEDS: Pantoprazole 40 mg EC Tab PO SCH (05:39)
[2017-01-22] MEDS: Insulin Reg-MEDIUM-Coverage SC SCH ×4 (06:34→21:37)
[2017-01-22] MEDS: guaiFENesin DM 100 mg-10 mg/5 ml UD PO PRN (10:28)
[2017-01-22] MEDS: Tiotropium 18 mcg Cap For Inhalation IH SCH (10:28)
[2017-01-22] MEDS: oxyCODONE 5 mg Immediate Release Tab PO PRN ×2 (14:35→19:07)
--- NOTE | 2017-01-22 16:37 | CP.PCM.PN ---
<StephenPraneeth - Last Filed: 01/22/17 16:35> Subjective - Date & Time of Evaluation Date of Evaluation: 01/22/17 Time of Evaluation: 16:35 - Subjective Subjective: GI for Dr. de la torre Pt s&e w attending. TAHIR. Denies F/C/N/V/D/CP/SOB. Tolerating diet. +BM. + amb Objective - Vital Signs/Intake and Output Vital Signs (last 24 hours): Temp Pulse Resp BP Pulse Ox 98.1 F 68 18 108/72 93 L 01/22/17 05:53 01/22/17 10:55 01/22/17 05:53 01/22/17 10:55 01/22/17 05:53 - Medications Medications: Current Medications Aspirin (Ecotrin) 81 mg PO 0800 [facility] PRN Reason: Protocol Last Admin: 01/22/17 07:59 Dose: 81 mg Carvedilol (Coreg) 25 mg PO 0800,1800 [facility] PRN Reason: Protocol Last Admin: 01/22/17 07:59 Dose: 25 mg Clopidogrel Bisulfate (Plavix) 75 mg PO 0800 [facility] Last Admin: 01/22/17 07:59 Dose: 75 mg Diphenhydramine HCl (Benadryl) 50 mg PO HS PRN PRN Reason: Insomnia Last Admin: 01/21/17 01:33 Dose: 50 mg Fluoxetine HCl (Prozac) 20 mg PO BID [facility] PRN Reason: Protocol Last Admin: 01/22/17 10:58 Dose: 20 mg Guaifenesin/Dextromethorphan (Robitussin Dm) 5 ml PO Q6H PRN; Protocol PRN Reason: Cough Last Admin: 01/22/17 10:28 Dose: 5 ml Insulin Human Regular (Humulin R Med) 0 units SC ACHS [facility] PRN Reason: Protocol Last Admin: 01/22/17 11:43 Dose: 3 units Isosorbide Mononitrate (Imdur) 60 mg PO 0600 [facility] PRN Reason: Protocol Last Admin: 01/22/17 05:39 Dose: 60 mg Lactulose (Enulose) 20 gm PO Q8 [facility] PRN Reason: Protocol Last Admin: 01/22/17 14:19 Dose: Not Given Lisinopril (Zestril) 20 mg PO DAILY [facility] PRN Reason: Protocol Last Admin: 01/22/17 10:55 Dose: 20 mg Oxycodone HCl (Oxycodone Immediate Release Tab) 5 mg PO Q4H PRN; Protocol PRN Reason: Pain, moderate (4-7) Last Admin: 01/22/17 14:35 Dose: 5 mg Pantoprazole Sodium (Protonix Ec Tab) 40 mg PO 0600 [facility] PRN Reason: Protocol Last Admin: 01/22/17 05:39 Dose: 40 mg Sevelamer HCl (Renagel) 1,600 mg PO 0800,1200,1700 [facility] PRN Reason: Protocol Last Admin: 01/22/17 11:47 Dose: 1,600 mg Tamsulosin HCl (Flomax) 0.4 mg PO HS [facility] PRN Reason: Protocol Last Admin: 01/21/17 21:44 Dose: 0.4 mg Tiotropium [place] (Spiriva) 18 mcg IH DAILY [facility] PRN Reason: Protocol Last Admin: 01/22/17 10:28 Dose: 18 mcg Zolpidem Tartrate (Ambien) 5 mg PO HS PRN; Protocol PRN Reason: Insomnia Last Admin: 01/21/17 21:44 Dose: 5 mg - Labs Labs: 01/20/17 14:32 01/20/17 14:32 - Constitutional Appears: Well, No Acute Distress - Head Exam Head Exam: ATRAUMATIC, NORMAL INSPECTION, NORMOCEPHALIC - Eye Exam Eye Exam: EOMI, Normal appearance, PERRL Pupil Exam: NORMAL ACCOMODATION, PERRL - ENT Exam ENT Exam: Mucous Membranes Moist, Normal Exam - Neck Exam Neck Exam: Full ROM, Normal Inspection. absent: Lymphadenopathy - Respiratory Exam Respiratory Exam: Clear to Ausculation Bilateral, NORMAL BREATHING PATTERN - Cardiovascular Exam Cardiovascular Exam: REGULAR RHYTHM, +S1, +S2. absent: Murmur - GI/Abdominal Exam GI & Abdominal Exam: Soft, Normal Bowel Sounds. absent: Distended, Firm, Tenderness - Extremities Exam Extremities Exam: Full ROM, Normal Capillary Refill, Normal Inspection. absent : Joint Swelling, Pedal Edema - Back Exam Back Exam: NORMAL INSPECTION - Neurological Exam Neurological Exam: Alert, Awake, CN II-XII Intact, Normal Gait, Oriented x3 - Psychiatric Exam Psychiatric exam: Normal Affect, Normal Mood - Skin Skin Exam: Dry, Intact, Normal Color, Warm Assessment and Plan - Assessment and Plan (Free Text) Assessment: Acute Liver Failure, ? dehydration: resolving ESRD, on HD Pancreatitis NSTEMI DM type PLAN: Trend LFT diet as tolerated continue lactulose cont PPI, renagel on ASA and Plavix Discussed with Dr. De La Torre. <Fawn De La Torre V - Last Filed: 03/09/17 21:13> Objective - Vital Signs/Intake and Output Vital Signs (last 24 hours): Temp Pulse Resp BP Pulse Ox 98.3 F 84 18 160/97 H 99 01/25/17 16:00 01/25/17 17:35 01/25/17 16:00 01/25/17 17:35 01/25/17 16:00 - Labs Labs: 01/23/17 10:15 01/23/17 10:15 Assessment and Plan - Assessment and Plan (Free Text) Assessment: Addendum to the GI progress note of Dr. Mitchell. Patient was seen, examined, and chart reviewed. Agree with plan as written above. Continue with the present treatment.
--- NOTE | 2017-01-22 23:22 | PN ---
DATE: 01/21/2017 SUBJECTIVE: The patient is sitting comfortably in chair, in no acute distress. Complaining of lack of sleep in the night, asking for Ambien. He was given Benadryl last night. He said that did not wo rk. He had shortness of breath that improved. Denies any abdominal pain. He is tolerating oral fee ds. PHYSICAL EXAMINATION: GENERAL: Comfortable in bed, no acute distress. VITAL SIGNS: Temperature is 98.7, heart rate 70 per minute, blood pressure 130/60, respiratory rate 15 per minute. HEENT: Normal. Mucosa pale. NECK: No lymphadenopathy. CHEST: Air entry present, equal bilateral. No added sound. CARDIOVASCULAR: Within normal limits. ABDOMEN: Soft, nontender, no hepatosplenomegaly. EXTREMITIES: No edema. LABORATORY DATA: Reviewed. MEDICATIONS: Reviewed. ASSESSMENT: 1. End-stage renal disease on hemodialysis. 2. Acute pancreatitis, resolving. 3. Non-ST elevation myocardial infarction. 4. Anemia. 5. Leukocytosis. 6. Hyperparathyroidism. 7. Diabetes mellitus type 2. 8. Right knee pain. PLAN: He is currently comfortable participating in physical therapy. We will continue aspirin 81 mg daily, Coreg 25 mg p.o. b.i.d., continue Plavix. He is currently on Prozac, continue that. Sliding scale insulin. Continue Zestril 20 mg daily. Continue Percocet p.r.n., Renagel 1600 mg p.o. 3 time s a day. Continue Ambien. He is currently on Flomax, continue that. We will give Ambien 5 mg p.o. at bedtime today for insomnia. Poonam Oakley MD cc: [id number] TT: 01/22/2017 23:21:34 Confirmation # [id number] Dictation # [id number]
--- NOTE | 2017-01-22 23:24 | PN ---
DATE: 01/22/2017 SUBJECTIVE: The patient is comfortable in chair, in no acute distress, complaining of fatigue. No shortness of breath. Complaining of cough, asking for cough syrup. No phlegm. No shortness of breath. REVIEW OF SYSTEMS: As per HPI. The rest of 12-point review of systems reviewed and negative. PHYSICAL EXAMINATION: GENERAL: Comfortable in bed, in no acute distress. VITAL SIGNS: Temperature 98.8, heart rate is 110 per minute, blood pressure is 130/60, respiratory rate 15 per minute. Pulse oxygen saturation 98% room air. HEENT: Normal. Oral mucosa moist. NECK: Supple. No lymphadenopathy. CHEST: Air entry present, equal bilateral. No added sound. CARDIOVASCULAR: S1, S2 normal. No murmur. No gallop. ABDOMEN: Soft, nontender. No hepatosplenomegaly. EXTREMITIES: No edema. LABORATORY DATA: Reviewed. MEDICATIONS: Reviewed. ASSESSMENT: 1. End-stage renal disease on hemodialysis. 2. Acute pancreatitis, resolving. 3. Anemia. 4. Hypertension. 5. Hyperparathyroidism. 6. Right knee pain. 7. Cough. PLAN: Robitussin q. 6 hours p.r.n. He did better with Ambien 5 mg p.o. at bedtime, we will continue same. Continue bronchodilators. Continue aspirin and Plavix. Continue Coreg 25 mg p.o. b.i.d. Insulin as per sliding scale. Continue beta-blockers. Continue lisinopril 20 mg daily. I discussed with the staff nurse. I discussed with patient, who is participating in physical therapy. Poonam Oakley MD cc: [id number] TT: 01/22/2017 23:24:14 Confirmation # [id number] Dictation # [id number] veto NASH
[2017-01-23] MEDS: Pantoprazole 40 mg EC Tab PO SCH (05:30)
[2017-01-23] MEDS: Insulin Reg-MEDIUM-Coverage SC SCH ×4 (06:31→21:44)
[2017-01-23] MEDS: Tiotropium 18 mcg Cap For Inhalation IH SCH (09:28)
[2017-01-23 10:28] LABS: ADD MANUAL DIFF? NO
[2017-01-23 10:45] LABS: BASO # 0.02 K/mm3 (0.0-2.0); BASO % 0.4 % (0.0-3.0); EOS # 0.2 (0.0-0.7); EOS % 4.3 % (1.5-5.0); GRAN # 3.28 (1.4-6.5); LYMPH # 0.7 (1.2-3.4); LYMPH % 14.3 % (22.0-35.0); MEAN CELL VOLUME 94.3 fL (80.0-105.0); MEAN CORPUSCULAR HEMOGLOBIN 30.5 pg (25.0-35.0); MEAN CORPUSCULAR HGB CONC 32.3 g/dl (31.0-37.0); MONO # 0.5 (0.1-0.6); PLATELET COUNT 138 10^3/uL (120.0-450.0); RED CELL DISTRIBUTION WIDTH 16.2 % (11.5-14.5); WHITE BLOOD COUNT 4.6 10^3/ul (4.5-11.0)
[2017-01-23 10:50] LABS: BILIRUBIN,TOTAL 1.2 mg/dL (0.2-1.3); CALCIUM 8.2 mg/dL (8.4-10.5); MAGNESIUM 2.2 mg/dL (1.7-2.2); PHOSPHOROUS 3.4 mg/dL (2.5-4.5); POTASSIUM 4.9 mmol/L (3.6-5.0); TOTAL PROTEIN 5.3 g/dL (5.8-8.3)
[2017-01-23] MEDS: guaiFENesin DM 100 mg-10 mg/5 ml UD PO PRN (17:47)
[2017-01-24] MEDS: Pantoprazole 40 mg EC Tab PO SCH (05:05)
[2017-01-24] MEDS: Insulin Reg-MEDIUM-Coverage SC SCH ×5 (07:59→21:33)
--- NOTE | 2017-01-24 10:32 | PN ---
DATE: 01/24/2017 The patient has no complaints of any chest pain. No headaches or dizziness. He was initially admitt ed to the hospital because of pancreatitis. He had improvement of his symptoms. He was transferred to the transitional care unit for rehab. He says he is feeling better. He is tolerating his diet. He is on dialysis. He is doing well on dialysis. PHYSICAL EXAMINATION: VITAL SIGNS: Temperature is 98.6, pulse of 80, respirations 18, blood pressure 136/92. DATE: SUBJECTIVE: PHYSICAL EXAMINATION: VITAL SIGNS: GENERAL: The patient is comfortable, in no acute distress. HEENT: Anicteric sclerae. Moist mucosa. NECK: No JVD or adenopathy. CARDIAC: S1/S2. No murmurs. No rubs. Regular. RESPIRATORY: Clear to auscultation bilaterally. No wheezes, rales, or rhonchi. Good air entry. ABDOMEN: Bowel sounds are positive, soft, nontender, and nondistended. EXTREMITIES: No edema. Has 1+ pulses. ASSESSMENT: 1. End-stage renal disease on hemodialysis. 2. Acute pancreatitis, resolved. 3. Delirium, improved. 4. Non-ST elevation, improved. 5. Acute hepatitis, resolved. 6. Left arteriovenous fistula. 7. Diabetes type 2. 8. Secondary hyperparathyroidism. 9. Hypertension. 10. Anemia. 11. Right knee pain. PLAN: The patient is comfortable. He has finished physical therapy. The patient's fingersticks are elevated. I will continue his carvedilol. He is on tamsulosin. He takes Levemir in the evening. I will continue his Levemir. He is on Ambien for sleep. The patient is on fluoxetine for his anxiet y and depression. He is on Renagel for his secondary hyperparathyroidism. He is on lisinopril for h is hypertension. He is on a renal diet. He is going to be discharged home tomorrow. His LFTs have significantly improved. He did not have viral hepatitis. I am not sure what the cause of his acute elevated LFTs was. Maurice Agarwal MD cc: [id number] TT: 01/24/2017 09:19:13 Confirmation # [id number] Dictation # [id number]
[2017-01-24] MEDS: Tiotropium 18 mcg Cap For Inhalation IH SCH (11:03)
--- NOTE | 2017-01-24 11:59 | PN ---
DATE: 01/24/2017 GI FOLLOWUP NOTE Seen and examined at the bedside earlier today in TCU. The patient was lying in bed. Denies any chadd sea, vomiting, no abdominal pain. He is having formed stool. No reports of overt GI bleed. I spoke to nursing staff. The patient refuses to participate in rehab. The patient is pending a psych eval uation for depression. VITAL SIGNS: Temperature is 98.3. Blood pressure is 133/81, pulse 78, respirations 18, 96 on room a ir. LABORATORY DATA: No new labs are noted for today. Noted from yesterday, 01/23, and the total bilirub in is 1.2, AST 31, ALT 267. Alk phos is 199. Bilirubin is much improved. His liver enzymes continu ed to show a downward trend. PHYSICAL EXAMINATION: HEENT: Sclerae are anicteric. NECK: Supple. CARDIAC: S1, S2. LUNGS: Lung sounds with decreased breath sounds, but good air entry. No rales or wheeze. ABDOMEN: With bowel sounds, soft, nondistended, nontender on palpation. EXTREMITIES: No edema. NEUROLOGIC: He is awake, alert, oriented. ASSESSMENT: Acute pancreatitis that is resolved. He also had acute hepatitis, which may have been s econdary to dehydration, which continues to improve. The patient has history of end-stage renal dise ase on dialysis, non-ST elevation, diabetes mellitus, hypertension, and anemia. PLAN: Continue to trend the liver enzymes, which continue to improve. The patient is on aspirin and Plavix. He is on lactulose, Protonix daily. The patient is on Prozac. He is going to be seen by psychiatry for depression. The patient was seen and case discussed with Dr. Gaytan. Inna Warees DONG cc: [id number] TT: 01/24/2017 11:58:35 Confirmation # [id number] Dictation # [id number] [id number]
--- NOTE | 2017-01-24 12:51 | CON ---
DATE: 01/24/2017 The patient is a 66-year-old male. He is currently being treated on the transitional care unit. I reviewed the chart. I spoke to patient at length. The patient is convalescing and receiving acute rehab following a problem with multiple medical problems including non-ST wave myocardial infarction and delirium, which is resolved, plus he has other medical problems including chronic kidney disease on hemodialysis. The patient states that he has been depressed, especially over the past year, but on and off for a number of years. He has multiple family problems and financial and health problems. PAST MEDICAL HISTORY: Includes chronic kidney disease. He has coronary artery disease, hypertension. He is on hemodialysis 3 times per week for 3 years. On this admission, he has had problems with elevated liver functions. He had acute pancreatitis, which resolved. He has type 2 diabetes mellitus, secondary hyperparathyroidism, anemia. The patient has had psychiatric treatment in the past many years ago in the 1970s when he began becoming depressed. He has been depressed off and on since that time. He has had no psychiatric hospitalizations. No drug or substance or alcohol abuse. PERSONAL HISTORY: He lives with his . He is currently retired on disability. 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 The patient has 2 sons who live together in [place]. They are unmarried. The oldest son is working. The youngest son has a learning disability and is unemployed. The patient has been supporting both of his sons on a regular basis including now for the younger son. The patient also is very concerned about his , who has a malignancy for the past year. The patient states he is gradually running out of his savings in view of his financial responsibilities. CURRENT LABORATORY DATA: His white count is 4600, hemoglobin is 9.7, platelet count 138,000. His most recent metabolic profile reveals normal electrolytes, a BUN of 55, creatinine 5.6, an estimated GFR of 10. He has a random glucose of 183. He has a normal AST. His ALT is 267, his alk phos is 199, his albumin is 2.6. The patient has been seen and evaluated by a neurologist. Initially, he was quite delirious due to a toxic metabolic state. The patient had an MRCP, which revealed a mildly enlarged pancreas, normal common bile duct without evidence of choledocholithiasis. CURRENT MEDICATIONS: Include Ambien 5 mg at bedtime p.r.n., Benadryl 50 mg at bedtime p.r.n., Coreg, aspirin, Enulose, Flomax, Humulin insulin, Imdur, Levemir , Plavix, Protonix, fluoxetine 20 mg b.i.d. and antidepressant which he has been on for a prolonged period of time. He is on Renagel, Spiriva, Zestril. REVIEW OF SYSTEMS: He has some abdominal pain and feels generally weak, but ambulatory. Other 12-point noncontributory. PHYSICAL EXAMINATION: VITAL SIGNS: His blood pressure is 132/81, pulse 78, respirations 18 per minute and afebrile. O2 saturation is reportedly 96% on room air. NEUROLOGIC: The patient has no focal neurological findings. PSYCHIATRIC: Mental status: He is awake, he is alert, he is oriented x 3. His recent and intermediate and remote memory is generally intact. He has depressed facies. He appears to have some psychomotor retardation. The patient , at times, feels life is not worth living, but no suicidal ideation or intent. No hallucinations or paranoia. He does complain of extreme difficulty sleeping at night. Claims he received here 5 mg of Ambien at bedtime without relief. The patient's judgment and insight is satisfactory. IMPRESSION: Major depressive disorder, moderate degree, without psychotic symptoms, recurrent. The patient has end-stage renal disease, on hemodialysis, status post non-ST wave myocardial infarction, status post pancreatitis, status post delirium. He has anemia, hypertension. PLAN: I suggest lowering Prozac to 20 mg p.o. q.a.m. We will start him on mirtazapine, also an antidepressant, but more sedative at night for insomnia and also I have advised patient to seek outpatient psychiatric treatment, either privately or I have referred him to a mental health clinic in [facility]. I gave him their name and phone number. The patient is being discharged tomorrow. If he is still here, I will reevaluate his mental status. The patient refuses inpatient psychiatric treatment. Ricky Ortega MD cc: [id number] TT: 01/24/2017 12:51:01 Confirmation # [id number] Dictation # [id number] en SAAD
[2017-01-24] MEDS ORDERED: Insulin Detemir 100 units/ml Vial (Levemir) SC SCH (22:00)
[2017-01-25] MEDS: Pantoprazole 40 mg EC Tab PO SCH (06:45)
[2017-01-25] MEDS: Insulin Reg-MEDIUM-Coverage SC SCH ×3 (06:51→16:42)
[2017-01-25] MEDS: Tiotropium 18 mcg Cap For Inhalation IH SCH (09:53)
[2017-01-25 11:19] VITALS: TEMP 98.3
--- NOTE | 2017-01-25 13:38 | PN ---
DATE: 01/25/2017 The patient is a 66-year-old male [facility] He also has been treated for major depressive disorder. Last night he was orde red mirtazapine 15 mg p.o. at bedtime. The patient slept well through the night without any adverse effects. PHYSICAL EXAMINATION: His mental status today reveals that he is awake, he is alert. He has some de gree of depressed facies. Oriented x 3. Receiving dialysis. His judgment and insight are satisfact ory. No suicidal ideation or psychotic symptomatology. OTHER MEDICATIONS: Include Coreg, Ecotrin, Enulose, Flomax, Imdur, Levemir, Plavix, Protonix, Prozac 20 mg once daily now, mirtazapine 15 mg at bedtime, Renagel, Spiriva, lisinopril. VITAL SIGNS: Blood pressure 136/74, pulse 82, respirations 20 per minute, O2 saturation 96%. LABORATORY DATA: Only new laboratory data to report is a random glucose early this morning of 153. IMPRESSION: The patient has recurrent major depressive disorder. He has end-stage renal disease. H luis angel is on hemodialysis. He has coronary artery disease. He is status post non-ST wave myocardial infa rction. He is status post pancreatitis, status post delirium, anemia, hypertension. PLAN: The patient has been advised to seek psychiatric treatment as an outpatient. He was given the information to follow through on that. Ricky Ortega MD cc: [id number] TT: 01/25/2017 13:37:42 Confirmation # [id number] Dictation # [id number] sn
[2017-01-25 16:36] VITALS: BP 160/97; PULSE 84; RESP 18; O2SAT 99
--- NOTE | 2017-03-21 08:20 | DS ---
Please see the note dictated on 01/24/2017 for details of the patient's discharge. Maurice Agarwal MD
== END 2017-01-25 18:35 | disposition home or self-care (01) | DRG 945 ==
LOC: TRCU 15:50
PROVIDERS: ADMIT Internal Medicine Nephrology; ATTEND Internal Medicine Nephrology
PROC: F07Z9FZ Gait Training/Functional Ambulation Treatment using Assistive, Adaptive, Supportive or Protective Equipment (ICD-10-PCS; principal; 2017-01-19)
PROC: F07Z5ZZ Bed Mobility Treatment (ICD-10-PCS; 2017-01-19)
PROC: 5A1D60Z (ICD-10-PCS; 2017-01-20)
PROC: F07L6YZ Therapeutic Exercise Treatment of Musculoskeletal System - Lower Back / Lower Extremity using Other Equipment (ICD-10-PCS; 2017-01-20)
PROC: F08Z4FZ Home Management Treatment using Assistive, Adaptive, Supportive or Protective Equipment (ICD-10-PCS; 2017-01-20)
DX: R53.81 Other malaise (principal); K85.90 Acute pancreatitis without necrosis or infection, unspecified; I21.4 Non-ST elevation (NSTEMI) myocardial infarction; K72.00 Acute and subacute hepatic failure without coma; G92 Toxic encephalopathy; N18.6 End stage renal disease; I12.0 Hypertensive chronic kidney disease with stage 5 chronic kidney disease or end stage renal disease; N25.81 Secondary hyperparathyroidism of renal origin; F33.9 Major depressive disorder, recurrent, unspecified; E11.22 Type 2 diabetes mellitus with diabetic chronic kidney disease; D64.9 Anemia, unspecified; I25.10 Atherosclerotic heart disease of native coronary artery without angina pectoris; M25.561 Pain in right knee; E86.0 Dehydration; G47.00 Insomnia, unspecified; Z99.2 Dependence on renal dialysis

== ENCOUNTER 2017-02-11 17:42 | Inpatient (IN) | payer MEDICARE, OTHER ==
[2017-02-11 17:44] VITALS: BMI 20.7
--- NOTE | 2017-02-11 18:13 | ED PDOC ---
Arrival/HPI - General Chief Complaint: Shortness Of Breath Time Seen by Provider: 02/11/17 17:50 Historian: Patient - History of Present Illness Narrative History of Present Illness (Text): 02/11/17 18:11 Patient is a 66 year old male whose past medical history includes pancreatitis, ESRD on Dialysis (M,W,F), CAD with stents, cardiac catheterization, and diabetes presents to the emergency department with shortness of breath and chest pain since dialysis yesterday. He states he drank "too much water" after dialysis yesterday. He states he slept fine last night. Today around 12:00 he reports chest pain that began while in bed. He states he was lying down but had to get up because he felt short of breat. When he got up, he states he experienced chest pain. Chest pain was not worse with exertion. Patient also reports lower extremity swelling yesterday which has since resolved. He reports intermittent abdominal pain with eating. No vomiting. No diarrhea or bloody stools. PMD: Dr. Agarwal Incoming Freight Clerk: Dr. Mendez 02/11/17 22:18 Time/Duration: 24 hours Symptom Onset: Sudden Symptom Course: Unchanged Modifying Factors (Text): None Past Medical History - Provider Review Nursing Documentation Reviewed: Yes - Infectious Disease Hx of Infectious Diseases: None - Tetanus Immunization Tetanus Immunization: Unknown - Cardiac Hx Cardiac Disorders: Yes Hx Hypertension: Yes - Pulmonary Hx Chronic Obstructive Pulmonary Disease (COPD): Yes - Neurological Hx Neurological Disorder: No - HEENT Hx HEENT Disorder: No (WEARS RX GLASSES) Other/Comment: laser sx eyes - Renal Hx Dialysis: Yes Type of Dialysis Access: fistula in the L arm Date of Last Dialysis Treatment: 02/10/17 Hx Renal Failure: Yes - Endocrine/Metabolic Hx Diabetes Mellitus Type 2: Yes - Hematological/Oncological Hx Blood Disorders: No - Integumentary Hx Dermatological Disorder: Yes Other/Comment: stage 1 r knee wound 2.5cm x 3cm wound bed red, ble skin discolorations, multiple skin discolorations b/l arms (from previous triage) - Musculoskeletal/Rheumatological Hx Musculoskeletal Disorders: Yes Hx Falls: Yes Other/Comment: walks with cane - Gastrointestinal Hx Gastrointestinal Disorders: Yes - Genitourinary/Gynecological Hx Genitourinary Disorders: No Hx Reproductive Disorders: No - Psychiatric Hx Emotional Abuse: No Hx Physical Abuse: No Hx Substance Use: No - Surgical History Hx Coronary Stent: Yes (X2) Other/Comment: L FA AV shunt for dialysis - Anesthesia Hx Anesthesia: Yes Hx Anesthesia Reactions: No Hx Malignant Hyperthermia: No - Suicidal Assessment Feels Threatened In Home Enviroment: No Family/Social History - Physician Review Nursing Documentation Reviewed: Yes Family/Social History: Unknown Family HX Smoking Status: Former Smoker Hx Alcohol Use: Yes (quit 14 yrs ago) Hx Substance Use: No Hx Substance Use Treatment: No Allergies/Home Meds Allergies/Adverse Reactions: Allergies No Known Allergies Allergy (Verified 02/11/17 17:44) Home Medications: Home Meds Medication Instructions Recorded Confirmed Albuterol Sulfate [Albuterol 0.09 mg IH QID 10/22/13 02/11/17 Sulfate Hfa] clonazePAM [Klonopin] 0.5 mg PO BID 08/18/14 02/11/17 Aspirin [Aspirin EC] 81 mg PO DAILY 11/27/14 02/11/17 Carvedilol [Coreg] 25 mg PO BID 11/27/14 02/11/17 Insulin Detemir [Levemir] 40 units SC HS 11/27/14 02/11/17 Isosorbide Mononitrate [Imdur] 60 mg PO DAILY 11/27/14 02/11/17 Tiotropium [Spiriva] 18 mcg IH DAILY 03/23/15 02/11/17 Lisinopril [Zestril] 20 mg PO DAILY 05/26/16 02/11/17 Omeprazole 20 mg PO DAILY 06/29/16 02/11/17 Review of Systems - Review of Systems Eyes: absent: Vision Changes ENT: absent: Hearing Changes Respiratory: SOB Cardiovascular: Chest Pain, Edema (improved since yesterday) Gastrointestinal: Abdominal Pain, Constipation, Nausea. absent: Vomiting Genitourinary Male: absent: Hematuria Musculoskeletal: absent: Neck Pain Skin: absent: Rash Neurological: absent: Headache, Dizziness Endocrine: absent: Diaphoresis Psychiatric: absent: Depression Physical Exam - Physical Exam Narrative Physical Exam (Text): Head: Atraumatic. Normocephalic. Eyes: PERRL. EOMI. Conjunctivae are not pale. ENT: Mucous membranes are moist and intact. Oropharynx is clear and symmetric. Neck: Supple. Full ROM. No JVD. No lymphadenopathy. Cardiovascular: Regular rate. Regular rhythm. Systolic murmur. Distal pulses are 2+ and symmetric. Pulmonary/Chest: No evidence of respiratory distress. Mild rales at bilateral bases. No wheezing or rhonchi. Abdominal: Mild epigastric pain on palpation. Soft and non-distended. There is no tenderness. No rebound, guarding, or rigidity. No organomegaly. Good bowel sounds. Back: No CVA tenderness. Extremities: No lower extremity edema. No cyanosis. No clubbing. Full range of motion in all extremities. No calf tenderness. Skin: Skin is warm and dry. No petechiae. No purpura. Neurological: Alert, awake, and oriented to person, place, time, and situation. Normal speech. Psychiatric: Good eye contact. Normal interaction, affect, and behavior. Denies depression or suicidal ideation. 02/11/17 22:25 Vital Signs Reviewed: Yes Vital Signs Temp Pulse Resp BP Pulse Ox 02/11/17 20:44 84 176/103 H 02/11/17 19:51 97.8 F 83 18 170/107 H 100 02/11/17 18:23 22 100 02/11/17 17:49 97.6 F 79 19 163/99 H 100 Temperature: Afebrile Blood Pressure: Normal Pulse: Regular Respiratory Rate: Normal Appearance: Positive for: Uncomfortable Pain Distress: Mild Medical Decision Making ED Course and Treatment: Differential Diagnosis included but are not limited to: Myocardial infarction vs coronary artery disease vs pulmonary edema vs congestive heart failure Plan:monitoring, cxr, cardiac enzymes, serial exams Prior Visits: Notes and results from previous visits were reviewed. Patient last seen in the ED on 01/13/17 and admitted to icu Progress Notes: Patient's hx and prior visits reviewed. He currently denies chest pain, denies pleuritic pain. No calf pain or nv deficits noted. He has significant past cardiac hx. Initial EKG unchanged from previous, on exam mild rales on re-exam, no hypoxia. CXR reading reviewed. Chest X-ray General Partner : Elena Arroyo MD Report Date : 02/11/2017 18:19:00 IMPRESSION: Prominence of the mediastinum may be related to tortuous aorta. Underlying adenopathy is not excluded. If indicated CT of the chest may be considered. Patient with no chest pain or back pain currently. Troponin elevated, however it is improved since recent admission and patient is dialysis patient. CXR and exam not suggestive of severe pulmonary edema. Potassium unremarkable. Lipase elevated, he does have component of upper abdominal pain palpable, but no rebound or guarding. Patient with some nausea. IV pepcid and zofran ordered. I reviewed case with Dr. Evans who had evaluated patient during recent admission. Patient will be admitted to monitored bed for further cardiac evaluation and serial exams. Treatment plan reviewed with patient and . He is alert, oriented, comfortable on re-exam. 02/11/17 22:28 - Lab Interpretations Lab Results: 02/11/17 18:25 02/11/17 18:25 Lab Results 02/11/17 18:25: Sodium 133, Potassium 4.3, Chloride 94 L, Carbon Dioxide 29, Anion Gap 14, BUN 65 H, Creatinine 4.8 H, Est GFR ( Amer) 15, Est GFR ( Non-Af Amer) 12, Random Glucose 370 H* D, Calcium 9.8, Total Bilirubin 1.4 H, AST 27, ALT 57 H, Alkaline Phosphatase 278 H, Lactate Dehydrogenase 401, Total Creatine Kinase 29 L, Troponin I 0.16 H* D, Total Protein 6.3, Albumin 3.3, Globulin 3.0, Albumin/Globulin Ratio 1.1, Amylase 125, Lipase 896 H 02/11/17 18:25: PT 12.6 H, INR 1.17 H, APTT 29.4 02/11/17 18:25: WBC 4.4 L, RBC 3.88, Hgb 11.9 L, Hct 36.9 L, MCV 95.1, MCH 30.7 , MCHC 32.2, RDW 15.5 H, Plt Count 107 L, Gran % 70.3 H, Lymph % (Auto) 17.0 L, [place] % (Auto) 7.0 H, Eos % (Auto) 4.8, Baso % (Auto) 0.9, Gran # 3.10, Lymph # 0.8 L, [place] # 0.3, Eos # 0.2, Baso # 0.04 - RAD Interpretation Radiology Orders: 02/11/17 17:57 CHEST PORTABLE [RAD] Stat - EKG Interpretation EKG Interpretation (Text): 02/11/17 22:27 EKG at 18:01 normal sinus rhythm rate of [address] and t wave abnormality Interpreted by ED Physician: Yes Type: 12 lead EKG Comparison: Similar to previous EKG - Medication Orders Current Medication Orders: Acetaminophen (Tylenol 325mg Tab) 650 mg PO Q6H PRN PRN Reason: Fever >100.4 F Albuterol/Ipratropium (Duoneb 3 Mg/0.5 Mg (3 Ml) Ud) 3 ml IH [id number] CURLY Aspirin (Ecotrin) 81 mg PO DAILY CURLY Carvedilol (Coreg) 25 mg PO BID [facility] Last Admin: 02/11/17 20:55 Dose: Clonazepam (Klonopin) 0.5 mg PO BID CURLY PRN Reason: Protocol Last Admin: 02/11/17 20:44 Dose: 0.5 mg Clopidogrel Bisulfate (Plavix) 75 mg PO DAILY [facility] Fluoxetine HCl (Prozac) 20 mg PO DAILY [facility] Insulin Detemir (Levemir) 20 unit SC HS [facility] Insulin Human Regular (Humulin R High) 0 units SC ACHS CURLY PRN Reason: Protocol Isosorbide Mononitrate (Imdur) 60 mg PO DAILY [facility] Lisinopril (Zestril) 20 mg PO DAILY [facility] Mirtazapine (Remeron) 15 mg PO HS [facility] Ondansetron HCl (Zofran Inj) 4 mg IVP Q6H PRN PRN Reason: Nausea/Vomiting Pantoprazole Sodium (Protonix Ec Tab) 40 mg PO DAILY [facility] Sevelamer HCl (Renagel) 1,600 mg PO TID [facility] Tamsulosin HCl (Flomax) 0.4 mg PO DAILY [facility] Tiotropium Elwin (Spiriva) 18 mcg IH DAILY [facility] Discontinued Medications Acetaminophen (Tylenol 325mg Tab) 650 mg PO ONCE STA Stop: 02/11/17 18:37 Last Admin: 02/11/17 18:54 Dose: 650 mg Aspirin (Aspirin Chewable) 81 mg PO STAT STA Stop: 02/11/17 20:23 Last Admin: 02/11/17 20:44 Dose: 81 mg Carvedilol (Coreg) 25 mg PO STAT STA Stop: 02/11/17 20:22 Last Admin: 02/11/17 20:44 Dose: 25 mg Famotidine (Pepcid) 20 mg IVP STAT STA Stop: 02/11/17 20:21 Last Admin: 02/11/17 20:45 Dose: 20 mg Insulin Human Regular (Humulin R) 6 units SC STAT STA Stop: 02/11/17 20:16 Last Admin: 02/11/17 20:44 Dose: 6 units Ondansetron HCl (Zofran Inj) 4 mg IVP ONCE ONE Stop: 02/11/17 20:21 Last Admin: 02/11/17 20:45 Dose: 4 mg - Scribe Statement The provider has reviewed the documentation as recorded by the Addis Pickett Provider Scribe Attestation: All medical record entries made by the Addis were at my direction and personally dictated by me. I have reviewed the chart and agree that the record accurately reflects my personal performance of the history, physical exam, medical decision making, and the department course for this patient. I have also personally directed, reviewed, and agree with the discharge instructions and disposition. Disposition/Present on Arrival - Present on Arrival Any Indicators Present on Arrival: Yes History of DVT/PE: No History of Uncontrolled Diabetes: Yes Urinary Catheter: No History of Decub. Ulcer: No History Surgical Site Infection Following: None - Disposition Have Diagnosis and Disposition been Completed?: Yes Diagnosis: Hyperglycemia, Chest pain, Elevated troponin, Dyspnea, Abdominal pain Disposition: HOSPITALIZED Disposition Time: 19:40 Patient Plan: Admission, Telemetry Condition: SERIOUS
--- NOTE | 2017-02-11 18:20 | RAD ---
HISTORY: chest pain COMPARISON: Chest x-ray performed 01/13/17 TECHNIQUE: Chest, one view. FINDINGS: LUNGS: No focal consolidation. Please note that chest x-ray has limited sensitivity for the detection of pulmonary masses. PLEURA: No significant pleural effusion identified. No definite pneumothorax . CARDIOVASCULAR: Heart size appears top normal. Prominence of the mediastinum may be related to tortuous aorta. Underlying adenopathy is not excluded. OSSEOUS STRUCTURES: Degenerative changes. VISUALIZED UPPER ABDOMEN: Unremarkable. OTHER FINDINGS: None. IMPRESSION: Prominence of the mediastinum may be related to tortuous aorta. Underlying adenopathy is not excluded. If indicated CT of the chest may be considered.
[2017-02-11 18:35] LABS: ADD MANUAL DIFF? NO
[2017-02-11 18:48] LABS: BASO # 0.04 K/mm3 (0.0-2.0); BASO % 0.9 % (0.0-3.0); EOS # 0.2 (0.0-0.7); EOS % 4.8 % (1.5-5.0); GRAN % 70.3 % (50.0-68.0); HEMATOCRIT 36.9 % (42.0-52.0); LYMPH # 0.8 (1.2-3.4); MEAN CELL VOLUME 95.1 fL (80.0-105.0); MEAN CORPUSCULAR HEMOGLOBIN 30.7 pg (25.0-35.0); MEAN CORPUSCULAR HGB CONC 32.2 g/dl (31.0-37.0); MONO # 0.3 (0.1-0.6); PLATELET COUNT 107 10^3/uL (120.0-450.0); RED CELL DISTRIBUTION WIDTH 15.5 % (11.5-14.5); WHITE BLOOD COUNT 4.4 10^3/ul (4.5-11.0)
[2017-02-11 18:53] LABS: INR 1.17 (0.93-1.08); PARTIAL THROMBOPLASTIN TIME 29.4 Seconds (23.7-30.8)
[2017-02-11 18:54] LABS: ALB/GLOB RATIO 1.1 (1.1-1.8); BILIRUBIN,TOTAL 1.4 mg/dL (0.2-1.3); CALCIUM 9.8 mg/dL (8.4-10.5); POTASSIUM 4.3 mmol/L (3.6-5.0); TOTAL PROTEIN 6.3 g/dL (5.8-8.3)
[2017-02-11 19:24] LABS: TROPONIN I 0.16 ng/mL
[2017-02-11] MEDS ORDERED: Insulin Regular 1 UNITS/0.01 ML ML SC STA (20:15)
--- NOTE | 2017-02-11 21:35 | CT ---
EXAM: CT Chest Without Intravenous Contrast CLINICAL HISTORY: 66 years old, male; Signs and symptoms; Shortness of breath; Prior surgery; Surgery date: 6+ months; Surgery type: Heart stents; Additional info: SOB TECHNIQUE: Axial computed tomography images of the chest without intravenous contrast. This CT exam was performed using one or more of the following dose reduction techniques: automated exposure control, adjustment of the mA and/or kV according to patient size, and/or use of iterative reconstruction technique. MIP reconstructed images were created and reviewed. Coronal and sagittal reformatted images were created and reviewed. EXAM DATE/TIME: 02/11/2017 8:18 PM COMPARISON: There are no prior studies for comparison. FINDINGS: Lungs and pleural spaces: Trachea and main bronchi are patent. There is apical pleural-parenchymal scarring bilaterally. There are bilateral pleural effusions. There are multiple calcified granulomas in both lungs. There is pleural-parenchymal scarring in the lateral aspect of the right upper lobe. There is a 3.2 mm noncalcified right upper lobe nodule. There is no lobar or segmental consolidation. There are atelectatic changes at both lung bases. Heart: The heart is mildly enlarged. There is a small pericardial effusion. There are coronary calcifications. There are calcifications in the aorta and great vessels.Aorta and main pulmonary artery are normal in caliber. Mediastinum: Esophagus is unremarkable. There are mildly enlarged paratracheal nodes.Rylee are not optimally evaluated without contrast material. Bones/joints: There are degenerative changes in the osseus structures. Soft tissues: unremarkable Upper abdomen: There is ascites in the upper abdomen. IMPRESSION: Prior granulomatous disease; cardiomegaly with small pericardial effusion; atherosclerotic disease; pleural effusions with compressive atelectasis, no focal consolidation Additional findings as described above.
[2017-02-11] MEDS ORDERED: Insulin Detemir 100 units/ml Vial (Levemir) SC SCH (22:00)
[2017-02-11] MEDS ORDERED: INSULIN DETEMIR 20 UNIT SC SCH (22:00)
[2017-02-12] MEDS: Insulin Reg-HIGH-Coverage SC SCH ×5 (00:12→22:00)
--- NOTE | 2017-02-12 01:15 | HP ---
HISTORY OF PRESENT ILLNESS: The patient is a 66-year-old patient of Dr. Agarwal who came to [facility] because of subjective feeling of shortness of breath, some chest discomfort, but no nausea, v omiting and no diarrhea. The patient had dialysis done yesterday and he feels that he has fluid in h is lungs. The patient states he had this feeling since yesterday with some chest discomfort and shor tness of breath. He attributes that to drinking a lot of fluids after dialysis. He really does not . He slept well last night. When he got up, he experienced some chest discomfort and complained of bilateral leg swelling. PAST MEDICAL HISTORY SIGNIFICANT FOR: 1. End-stage renal disease, on hemodialysis. 2. Coronary artery disease, status post angioplasty. 3. Non-insulin dependent diabetes. 4. Hyperparathyroidism. 5. Hypertension. 6. Chronic anemia. PAST SURGICAL HISTORY: Significant for a left arm AV fistula. SOCIAL HISTORY: Used to be a smoker in the past and quit several years ago. He smoked for 20 to 30 years. Intermittent history of alcohol use, but he quit that also. FAMILY HISTORY: Significant for multiple family members having diabetes and dementia. MEDICATIONS AT HOME: He is on 1. Klonopin 0.5 twice a day. 2. Spiriva 18 mcg daily. 3. Flomax 0.4 daily. 4. Renagel 1600 three times a day. 5. Protonix 40 daily. 6. Omeprazole 20 mg daily. 7. Remeron 15 mg daily. 8. Lisinopril 20 mg daily. 9. Isosorbide 60 mg daily. 10. 40 units at bedtime. 11. Prozac 20 mg daily. 12. Plavix 75 daily. 13. Coreg 25 twice a day. 14. Aspirin 81 daily. 15. Nebulizer treatment. REVIEW OF SYSTEMS: Significant for shortness of breath and chest discomfort. PHYSICAL EXAMINATION: GENERAL: He is awake and alert and able to communicate. VITAL SIGNS: The patient is afebrile, pulse 83, respirations 18 and blood pressure 170/107. LUNGS: Bilateral fair airflow, no rhonchi or crackle. HEART: S1, S2 audible. ABDOMEN: Soft, nontender, no rebound and no guarding. NEUROLOGIC: The patient is awake and alert and able to communicative. LABORATORY DATA: WBC is 4.4, hemoglobin 11.9, hematocrit 36.9 and platelets of 107. PT 12.6. INR 1. 17. Chemistry: Sodium 138, potassium 4.6, chloride 94, CO2 29, BUN 65, creatinine 4.8, blood sugar of 370 and total bili 1.4. AST 27, ALT 57 and alk phos ____. Troponin 0.16. LDH is 41 and lipase i s ____. ASSESSMENT: 1. Chest pain, rule out coronary artery disease. 2. Mild pancreatitis. 3. End-stage renal disease, on hemodialysis. 4. Hypertension. 5. Non-insulin dependent diabetes. PLAN: The patient will be placed in observation. Will monitor his cardiac enzymes and monitor his b lood sugar. Cardiology consult by ____ will be requested. Will follow up electrolytes in a.m. Mary Thomas MD cc: [phone] TT: 02/12/2017 00:01:36 sn
[2017-02-12] MEDS: Albuterol-Ipratrop 3 mg / 0.5 (3 ml) UD IH SCH ×3 (07:45→19:20)
[2017-02-12 07:49] LABS: ADD MANUAL DIFF? NO
[2017-02-12 08:31] LABS: ALB/GLOB RATIO 1.2 (1.1-1.8); BILIRUBIN,TOTAL 1.1 mg/dL (0.2-1.3); CALCIUM 9.8 mg/dL (8.4-10.5); POTASSIUM 3.7 mmol/L (3.6-5.0); TOTAL PROTEIN 6.7 g/dL (5.8-8.3)
[2017-02-12 08:38] LABS: BASO # 0.07 K/mm3 (0.0-2.0); BASO % 0.8 % (0.0-3.0); EOS # 0.5 (0.0-0.7); EOS % 5.8 % (1.5-5.0); GRAN # 5.69 (1.4-6.5); GRAN % 65.4 % (50.0-68.0); HEMATOCRIT 38.2 % (42.0-52.0); LYMPH # 1.6 (1.2-3.4); LYMPH % 18.1 % (22.0-35.0); MEAN CELL VOLUME 93.6 fL (80.0-105.0); MEAN CORPUSCULAR HEMOGLOBIN 30.1 pg (25.0-35.0); MEAN CORPUSCULAR HGB CONC 32.2 g/dl (31.0-37.0); MONO # 0.9 (0.1-0.6); MONO % 9.9 % (1.0-6.0); PLATELET COUNT 138 10^3/uL (120.0-450.0); RED CELL DISTRIBUTION WIDTH 15.6 % (11.5-14.5); WHITE BLOOD COUNT 8.7 10^3/ul (4.5-11.0)
[2017-02-12] MEDS ORDERED: Magnesium Citrate Oral SOL (300 ml) PO ONE (10:04)
[2017-02-12] MEDS: Pantoprazole 40 mg EC Tab PO SCH (10:34)
[2017-02-12] MEDS: Tiotropium 18 mcg Cap For Inhalation IH SCH (10:34)
--- NOTE | 2017-02-12 12:09 | PN ---
DATE: 02/12/2017 SUBJECTIVE: The patient is a 66-year-old, seen and examined, looks pale. States he has a lot of iss ues including chest discomfort, shortness of breath. He did not have bowel movement for almost a wee k. He also complained of some urethral discomfort when he has a feeling to pee, but nothing comes ou t. Denies having any discharge. Complained of decreased appetite. PHYSICAL EXAMINATION: VITAL SIGNS: He is afebrile, pulse 74, respirations 20, blood pressure 157/97. HEART: S1, S2 audible. LUNGS: Bilateral soft crackles at bases posteriorly. ABDOMEN: Soft, nontender, no rebound, no guarding. NEUROLOGIC: He is awake and alert and communicative. LABORATORY EXAMINATION: WBC is 8.7, hemoglobin 12.3, hematocrit 38.2, platelet of 138. Chemistry: Sodium 135, potassium 3.7, chloride 96, CO2 24, BUN 73, creatinine 5.5, blood sugar 130, , alkal ine phosphatase is 259, lipase is 1010. CT scan of the chest was done that shows fatty liver disease , cardiomegaly with small pericardial effusion, atherosclerotic heart disease, pleural effusion with compressive atelectasis. ASSESSMENT AND PLAN: 1. Chest pain seems to be noncardiac. 2. Mild congestive heart failure. 3. End-stage renal disease, on hemodialysis. 4. Constipation. 5. Possible urethritis. 6. Highly likely secondary to end-stage renal disease. We will get Dr. Gaytan to evaluate t hat. In the meantime, I will give him 1 dose of magnesium citrate and start him on MiraLAX. He will be evaluated by Dr. Agarwal in a.m. Mary Thomas MD cc: [phone] TT: 02/12/2017 12:08:23 Confirmation # [id number] Dictation # [id number] temitope
--- NOTE | 2017-02-12 17:12 | CON ---
DATE: 02/12/2017 REQUESTING PHYSICIAN: Dr. Thomas. REASON FOR CONSULTATION: Known coronary artery disease, chest pain and dyspnea. HISTORY OF PRESENT ILLNESS: This is a 66-year-old man known to us from prior admission, admitted wit h complaints of chest pain and dyspnea. He experienced some orthopnea and retrosternal chest discomf ort. He claims compliance on dialysis, which was last on Monday. Upon admission, his electrocardiog to showed no acute changes and his initial cardiac enzymes were not significant. He is seen now jazlyn madden in bed. He is comfortable and denies any chest pain. He does have known coronary disease with se kennedy LV dysfunction and prior multivessel PCI. He also has a history of COPD, BPH, and gastroesophage al reflux disease. MEDICATIONS: Carvedilol 25 mg b.i.d., DuoNeb inhaler, Ecotrin, Flomax, insulin coverage, Imdur 60 mg daily, Klonopin, Levemir, Plavix 75 mg daily, Protonix 40 mg daily, Prozac 20 mg daily, Remeron, Bari agel, Spiriva and Zestril at 20 mg daily. FAMILY HISTORY: Unremarkable for heart disease. SOCIAL HISTORY: He is a former smoker. He also a history of alcohol abuse in the past. PHYSICAL EXAMINATION: GENERAL: He is a chronically ill appearing middle-aged man. VITAL SIGNS: His blood pressure 166/90 with a pulse of 74 in sinus, respirations are 14. He is afeb rile. HEENT: Normocephalic, atraumatic. NECK: Supple, no JVD. CHEST: Bilateral scattered rhonchi. HEART: PMI displaced laterally with soft tones noted. Systolic murmur present in left sternal borde r. ABDOMEN: Soft, nontender, normoactive bowel sounds. EXTREMITIES: No clubbing, cyanosis or edema. A fistula is present in the left arm. DIAGNOSTIC DATA: CT of the chest is notable for evidence of granulomatous disease and cardiomegaly. Chest x-ray revealed borderline cardiac silhouette enlargement with clear lung manrique. Electrocardi ogram reveals sinus rhythm with left atrial abnormalities and ST-T changes at best suggestive of ante rolateral ischemia, unchanged from prior tracings. White count 8.7, hemoglobin and hematocrit 12.3 a nd 38.2 with a platelet count of 138,000. PT, PTT are normal. Potassium 3.7, BUN and creatinine 73/ 5.5, glucose 370 with repeat of 130, troponin 0.16. Amylase and lipase 896 and 125. IMPRESSION: 1. Chest pain and dyspnea. No clear evidence of acute cardiac ischemia or injury. 2. Known coronary artery disease, status post multivessel PCI and prior myocardial infarction. 3. Evidence of pancreatitis by blood work. 4. Chronic renal failure, maintained on hemodialysis. RECOMMENDATIONS: His current cardiac medications should be continued. Repeat cardiac enzymes will b e planned. A followup electrocardiogram will be ordered as well. Prior records will be reviewed. G I evaluation is advised. Thank you for this consultation and we will be happy to follow along through his hospital course. Guanaco Evans MD cc: [phone] TT: 02/12/2017 17:11:35 Confirmation # [id number] Dictation # [id number] mn
--- NOTE | 2017-02-12 17:51 | CON ---
DATE: 02/12/2017 This 66-year-old patient with a history of end-stage renal disease on hemodialysis, diabetes mellitus , hyperthyroidism, hypoparathyroidism, hypertension and anemia, was recently in the hospital with acu te liver failure, questionable history of elevated pancreatic enzymes, systemic inflammatory response syndrome managed and treated conservatively, improved. The patient was doing well until he develope d suddenly some increased shortness of breath. No complaints of any abdominal pain. The patient als o was found to have elevated pancreatic enzymes. GI consultation was requested to evaluate this. Ot her past medical history is significant as above, history of hypertension, chronic anemia. SURGICAL HISTORY: Significant for left thumb fistula. The patient did have an upper GI endoscopy do ri last year and was found to have only gastritis, esophagitis. SOCIAL HISTORY: Ex-smoker. Social alcohol use before in the past, but presently does not drink alco hol. ALLERGIES: No known drug allergies. REVIEW OF SYSTEMS: Positive as above. PHYSICAL EXAMINATION: GENERAL: The patient is lying in the bed, not in acute distress. VITAL SIGNS: Temperature is 97.3, blood pressure 157/102, respirations 19. HEENT: Atraumatic, anicteric. NECK: Supple. HEART: S1, S2 heard, slightly reduced in the base. ABDOMEN: Soft, no tenderness. EXTREMITIES: No edema, no cyanosis. NEUROLOGIC: Alert, oriented. Moves all the extremities. LABORATORY DATA: Hemoglobin 12.3, hematocrit 38.2, WBC is 8.7, platelets 138. Chemistry is essentia lly unremarkable. LFTs have significantly improved. The transaminase is normal. Alkaline phosphata se is 159. Lipase on admission was 896, and lipase on repeat labs today showed a lipase of 1010. IMPRESSION: This 66-year-old patient with end-stage renal disease on hemodialysis, was admitted with chest discomfort. The patient has chest pain and discomfort. The patient was found to have elevate d LFTs. GI consultation was requested. The patient did have an extensive GI workup during the last admission. The patient had imaging studies done. Two ultrasounds were done, both showed no stones. CBD was normal. The patient also had an MRCP done, which was slightly limited because of the motion artifact and mildly prominent pancreatic duct, no obvious lesions noticed. CT without contrast did n ot reveal any obvious mass. RECOMMENDATIONS: At the present time: 1. Follow up with cardiology. 2. Would consider repeating the MRI. When the patient had the previous MRI, the patient had a motio n artifact as the patient was sick at that time. We will consider repeating an MRI without contrast. Should also consider endoscopy ultrasound to further evaluate. The patient is on a clear liquid di et. We will slowly advance the diet as the patient is tolerating. Presently, the patient does not h ave any tenderness on physical exam. The patient has only mild pancreatic enzyme elevation. Thank you very much for allowing us to participate in the care of the patient. Fawn Gaytan MD cc: [id number] TT: 02/12/2017 17:51:10 Confirmation # [id number] Dictation # [id number] mn
--- NOTE | 2017-02-12 22:09 | CARD ---
APPROVED REPORT EKG Measurement Heart [id number] MI 150P52 [id number] <Conclusion> Normal sinus rhythm Possible Left atrial enlargement ST & T wave abnormality, consider lateral ischemia Abnormal ECG
[2017-02-12] MEDS: Insulin Detemir 100 units/ml Vial (Levemir) SC SCH (23:49)
[2017-02-13] MEDS: Albuterol-Ipratrop 3 mg / 0.5 (3 ml) UD IH SCH ×4 (02:44→20:19)
--- NOTE | 2017-02-13 09:01 | CP.PCM.PN ---
Subjective - Date & Time of Evaluation Date of Evaluation: 02/13/17 Time of Evaluation: 07:00 - Subjective Subjective: Stable on 2R. No CP or SOB. V/S noted. RSR. PE: Lungs: clear Cor.: S1S2 Abd.: soft Ext.; no edema Neuro.: alert Objective - Vital Signs/Intake and Output Vital Signs (last 24 hours): Temp Pulse Resp BP Pulse Ox 97.8 F 69 20 133/82 97 02/13/17 05:38 02/13/17 05:38 02/13/17 05:38 02/13/17 05:38 02/13/17 05:38 Intake and Output: 02/13/17 02/13/17 06:59 18:59 Intake Total 720 Output Total 0 Balance 720 - Medications Medications: Current Medications Acetaminophen (Tylenol 325mg Tab) 650 mg PO Q6H PRN PRN Reason: Fever >100.4 F Last Admin: 02/12/17 18:31 Dose: 650 mg Albuterol/Ipratropium (Duoneb 3 Mg/0.5 Mg (3 Ml) Ud) 3 ml [id number] [facility] Last Admin: 02/13/17 07:54 Dose: 3 ml Aspirin (Ecotrin) 81 mg PO DAILY [facility] Last Admin: 02/12/17 10:32 Dose: 81 mg Carvedilol (Coreg) 25 mg PO BID [facility] Last Admin: 02/12/17 17:51 Dose: 25 mg Clonazepam (Klonopin) 0.5 mg PO BID [facility] PRN Reason: Protocol Last Admin: 02/12/17 17:51 Dose: 0.5 mg Clopidogrel Bisulfate (Plavix) 75 mg PO DAILY [facility] Last Admin: 02/12/17 10:34 Dose: 75 mg Fluoxetine HCl (Prozac) 20 mg PO DAILY [facility] Last Admin: 02/12/17 10:33 Dose: 20 mg Insulin Detemir (Levemir) 10 unit SC 2200 [facility] Last Admin: 02/12/17 23:49 Dose: 10 unit Insulin Human Regular (Humulin R High) 0 units SC ACHS [facility] PRN Reason: Protocol Last Admin: 02/12/17 22:00 Dose: Not Given Isosorbide Mononitrate (Imdur) 60 mg PO DAILY [facility] Last Admin: 02/12/17 10:32 Dose: 60 mg Lisinopril (Zestril) 20 mg PO DAILY [facility] Last Admin: 02/12/17 10:33 Dose: 20 mg Mirtazapine (Remeron) 15 mg PO HS [facility] Last Admin: 02/12/17 21:28 Dose: 15 mg Ondansetron HCl (Zofran Inj) 4 mg IVP Q6H PRN PRN Reason: Nausea/Vomiting Pantoprazole Sodium (Protonix Ec Tab) 40 mg PO DAILY [facility] Last Admin: 02/12/17 10:34 Dose: 40 mg Polyethylene Glycol (Miralax) 17 gm PO DAILY [facility] Sevelamer HCl (Renagel) 1,600 mg PO TID [facility] Last Admin: 02/12/17 17:50 Dose: 1,600 mg Tamsulosin HCl (Flomax) 0.4 mg PO DAILY [facility] Last Admin: 02/12/17 10:33 Dose: 0.4 mg Tiotropium [place] (Spiriva) 18 mcg IH DAILY [facility] Last Admin: 02/12/17 10:34 Dose: 18 mcg - Labs Labs: 02/12/17 07:47 02/12/17 07:45 PT 12.6 Seconds (9.9-11.8) H 02/11/17 18:25 INR 1.17 (0.93-1.08) H 02/11/17 18:25 APTT 29.4 Seconds (23.7-30.8) 02/11/17 18:25 Assessment and Plan - Assessment and Plan (Free Text) Assessment: Assessment Dyspnea/CP CAD/PCIs/LVD Nuclear stress test 11/11: Inf. and inf-lat fixed defect c/w [place]. LV EF = 30% COPD/Former Smoker BPH GERD Pancreatitis Hypothyroidism Acute Liver failure Anemia Gastritis/Esophagitis on EGD Small pericardial effusion on CT chest Plan: Check ECG OOB per GI., uro., Dr. Thomas.
--- NOTE | 2017-02-13 09:04 | DS ---
SUBJECTIVE: The patient is a 66-year-old male who was admitted to the hospital because of shortness of breath. He says that he started having chest pain while he was lying flat. He also has been drin nate excess amounts of fluid, although he is on dialysis and he gets dialyzed. He was seen by cardio logy as well as GI. His chest pain was seen to be noncardiac. He has no complaints of any headaches or dizziness, no nausea, no vomiting. He is going to continue his dialysis treatment. He has no he adaches or dizziness, no nausea or vomiting. PHYSICAL EXAMINATION: VITAL SIGNS: Temperature is 97.8, pulse is 69, blood pressure 133/82, respirations 20. GENERAL: The patient comfortable, in no acute distress. HEENT: Anicteric sclerae. Moist mucosa. NECK: No JVD or adenopathy. CARDIAC: S1/S2. No murmurs. No rubs. Regular. RESPIRATORY: Clear to auscultation bilaterally. No wheezes, rales, or rhonchi. Good air entry. ABDOMEN: Bowel sounds are positive, soft, nontender, and nondistended. EXTREMITIES: No edema. Has 1+ pulses. LABS: Last hemoglobin is 12.3. His glucose was low but has improved. His lipase was 1010. ASSESSMENT: 1. Chest pain, atypical. 2. Coronary artery disease. 3. End-stage renal disease, on hemodialysis. 4. Left arteriovenous fistula. 5. Diabetes, type 2. 6. Secondary hyperparathyroidism. 7. Hypertension. 8. Depression. PLAN: The patient's is currently comfortable. He is advised the importance of compliance with his f luid restriction. He is on carvedilol for his coronary disease. He is receiving aspirin as well. Supa plasencia is going to continue Flomax for his BPH. He is on Levemir for his diabetes. He is on MiraLax for his constipation. He is on Plavix for his coronary disease. He is going to continue with Prozac for his depression. The patient is on lisinopril for his hypertension. He is on Renagel for his second karolyn hyperparathyroidism. He is on a renal diet. CONDITION: Stable. ACTIVITIES: Increase as tolerated. Maurice S Any MD cc: [id number] TT: 02/13/2017 09:03:50 mn
[2017-02-13 09:15] LABS: ADD MANUAL DIFF? NO
[2017-02-13 09:20] LABS: BASO # 0.04 K/mm3 (0.0-2.0); BASO % 0.7 % (0.0-3.0); EOS # 0.3 (0.0-0.7); EOS % 4.7 % (1.5-5.0); GRAN # 3.89 (1.4-6.5); GRAN % 70.2 % (50.0-68.0); HEMATOCRIT 38.1 % (42.0-52.0); LYMPH # 0.8 (1.2-3.4); LYMPH % 15.2 % (22.0-35.0); MEAN CELL VOLUME 93.8 fL (80.0-105.0); MEAN CORPUSCULAR HEMOGLOBIN 30.3 pg (25.0-35.0); MEAN CORPUSCULAR HGB CONC 32.3 g/dl (31.0-37.0); MONO # 0.5 (0.1-0.6); MONO % 9.2 % (1.0-6.0); PLATELET COUNT 113 10^3/uL (120.0-450.0); RED CELL DISTRIBUTION WIDTH 15.8 % (11.5-14.5); WHITE BLOOD COUNT 5.5 10^3/ul (4.5-11.0)
[2017-02-13 09:33] LABS: ALB/GLOB RATIO 1.1 (1.1-1.8); CALCIUM 9.6 mg/dL (8.4-10.5); POTASSIUM 5.3 mmol/L (3.6-5.0); TOTAL PROTEIN 6.2 g/dL (5.8-8.3)
[2017-02-13] MEDS: POLYETHYLENE GLYCOL 3350 17 GM/Dose PACKET PO SCH (09:45)
[2017-02-13] MEDS: Pantoprazole 40 mg EC Tab PO SCH (09:46)
[2017-02-13] MEDS: Tiotropium 18 mcg Cap For Inhalation IH SCH (09:46)
[2017-02-13] MEDS: Insulin Reg-HIGH-Coverage SC SCH ×3 (09:50→22:00)
[2017-02-13] MEDS ORDERED: Oxycodone/Acetaminophen 5/325 mg Tab PO PRN (10:06)
--- NOTE | 2017-02-13 13:16 | PN ---
DATE: 02/13/2017 Seen and examined at the bedside earlier today. The was there. The patient is not complaining of any abdominal pain now, it is better, although he complained of having hard stools before. No epi sodes of nausea or vomiting. He is actually eating his food. He does have a history of gastroparesi s and discussed with the patient to eat small frequent meals and to chew his food well. No new compl aints or acute overnight events. VITAL SIGNS: Temperature is 97.8, blood pressure is 129/89, his pulse 73, respirations 20, 97% on ro om air. LABORATORIES: WBC is 5.5, H and H is 12.3 and 38.1, platelets are 113. Chem: Sodium is 133, K 5.3, BUN 90, creatinine 6.7. His total bilirubin is 1.0, AST 25, ALT 43, alkaline phosphatase is 212. L ipase is at 491. This is improving. PHYSICAL EXAMINATION: HEENT: Sclera is anicteric. NECK: Supple. CARDIAC: S1, S2. LUNG SOUNDS: With decreased breath sounds, but good air entry, no rales or wheeze. ABDOMEN: With bowel sounds, soft, not distended, nontender on palpation. No rebound or guarding. EXTREMITIES: No edema. NEUROLOGIC: Awake, alert, and oriented. ASSESSMENT: This is a 66-year-old male with past medical history of end-stage renal disease on dialy sis. The patient came with complaints of chest discomfort, which has improved. He has elevated live r enzymes, in which he was followed by this previous admission and had numerous imaging studies. Ult rasound was done x 2, was negative for gallstones and the common bile duct was normal. Status post m agnetic resonance cholangiopancreatography, found to have a mildly prominent pancreatic duct, but was a limited exam. His other comorbidities are diabetes, gastroparesis, likely secondary to the diabet es mellitus. PLAN: We will request for patient to have repeat MRCP since it was a limited study. The patient is more cooperative now. This will be done without contrast as patient has history of renal disease. S poke to the and the patient in detail. Continue diet, small frequent meals, soft for the gastro paresis and patient is on MiraLax for his bowels. Continue PPI. He is on Protonix. The patient is also on Plavix, history of coronary artery disease. So we will follow up the MRCP. After review of that, patient may benefit from elective outpatient EUS. Discussed with the at the bedside as we ll, but we will request for MRCP without contrast. We will change diet to liquid for now until he go es for the MRI. Case was discussed with Dr. Agarwal earlier this morning. The patient was seen and discussed with Dr. Gaytan, who is covering rounds. Inna UMANA cc: [id number] TT: 02/13/2017 13:15:37 Confirmation # [id number] Dictation # [id number] en
--- NOTE | 2017-02-13 20:22 | PN ---
DATE: 02/13/2017 ADDENDUM SUBJECTIVE: This patient was seen and evaluated earlier today. This is an addendum to the GI progre ss report dictated by Inna Palafox APN. Discussed with also Dr. Agarwal and also the patient's who was at bedside. The patient denies any abdominal pain now. Tolerating the diet. The real conc lissette is this mildly elevated pancreatic lipase level. The patient did have an MRI done before. She h as mild prominent pancreatic duct with no obvious focal lesion. However, the study was limited becau se of the motion. I had a detailed discussion. The patient did have 2 ultrasound scans done in the past. Showed no gallstones. The patient did hav e an endoscopy done in the past which showed gastroparesis. RECOMMENDATION: 1. Would recommend the patient to stay on a soft diet, chew well. 2. Would consider repeating the MRI with no contrast to further evaluate the pancreas. The patient now assured me that she will cooperate for the test. The patient may benefit from endoscopic ultraso und; however, we will consider this after reviewing the repeat MRI. Meanwhile, the patient is on renal dialysis. Last admission, the patient was in acute liver failure with the transaminases over 2000. This is near normalized. The patient has a history of chronic constipation. She had a colonoscopy done several years ago in [facility] before evaluation for the transplant. This patient would benefit from the elect karen colonoscopic evaluation. Thank you very much for allowing me to participate in the care of the patient. Fawn Gaytan MD cc: [id number] TT: 02/13/2017 20:21:50 Confirmation # [id number] Dictation # [id number] temitope
[2017-02-13] MEDS: Insulin Detemir 100 units/ml Vial (Levemir) SC SCH (22:00)
[2017-02-14] MEDS: Albuterol-Ipratrop 3 mg / 0.5 (3 ml) UD IH SCH ×3 (02:40→13:09)
[2017-02-14 07:37] VITALS: PULSE 87; RESP 18; TEMP 98.2; O2SAT 96
[2017-02-14] MEDS: Tiotropium 18 mcg Cap For Inhalation IH SCH (09:44)
[2017-02-14] MEDS: POLYETHYLENE GLYCOL 3350 17 GM/Dose PACKET PO SCH (09:44)
[2017-02-14] MEDS: Pantoprazole 40 mg EC Tab PO SCH (09:45)
[2017-02-14 09:49] VITALS: BP 158/99
[2017-02-14] MEDS: Insulin Reg-HIGH-Coverage SC SCH ×2 (10:40→11:23)
--- NOTE | 2017-02-14 16:37 | PN ---
DATE: 02/14/2017 HISTORY OF PRESENT ILLNESS: Seen and examined at the bedside earlier today. The patient was resting in the bed, easily arousable. No acute overnight events. The patient denies nausea, vomiting, or a bdominal pain. No further reports of any loose stool or any nausea. He is tolerating oral intake. He is currently on clear liquid, awaiting to go for MRCP. VITAL SIGNS: Temperature is 98.2, blood pressure 158/99, pulse 87, respirations 18, 96 on room air. LABORATORY DATA: No new labs are noted for today. PHYSICAL EXAMINATION: HEENT: Sclerae are anicteric. NECK: Supple. CARDIAC: S1, S2. LUNGS: Decreased breath sounds at the bases, but good air entry. No rales or wheeze. ABDOMEN: With bowel sounds, soft. No tenderness on palpation. EXTREMITIES: No edema. NEUROLOGIC: Awake, alert, and oriented. ASSESSMENT: A 66-year-old male with past medical history of end-stage renal disease on dialysis. Ca me with complaints of chest discomfort, which has improved. He had elevated liver enzymes, which he was followed by on previous admission. He had abdominal ultrasounds x 2, which were negative for gal lstones, and common bile duct was normal. He has a history of mildly prominent pancreatic duct. We sent him for an MRCP, but that was a limited exam at the time. Other comorbidities are diabetes, and also patient has history of gastroparesis. PLAN: The patient is on clear liquid diet, waiting to go for MRCP. Spoke to the patient that he wou ld need outpatient followup for elective outpatient EUS after review of the MRCP. The patient is on Plavix for history of coronary artery disease. The patient is also on aspirin. Continue PPI. He is on MiraLAX for bowel regimen. The patient was seen and case discussed with Dr. Gaytan. Inna UMANA cc: [id number] TT: 02/14/2017 16:37:10 Confirmation # [id number] Dictation # [id number] temitope
--- NOTE | 2017-02-14 17:59 | CARD ---
APPROVED REPORT EKG Measurement Heart [id number] OK 152P51 [id number] <Conclusion> Normal sinus rhythm Possible Left atrial enlargement ST & T wave abnormality, consider lateral ischemia Abnormal ECG
--- NOTE | 2017-02-14 18:35 | PN ---
DATE: 02/14/2017 This patient was seen and evaluated earlier. The patient is feeling better. Tolerating the diet. T he patient did have an MRI done. On examination, the abdomen is soft. There is no tenderness. The patient is planned to be discharged today. I did discuss with the patient at length. At the present time, the MRI report is pending and will follow up on that. The patient would benefit from an endos copic ultrasound and also colonoscopy in view of the change of bowel habits, constipation. The patie nt was advised to take stool softeners, probably lactulose 15-30 mL per day for his chronic constipat ion and elective colonoscopy. Given the office number to call and follow up regarding this procedure . The patient fully understood. Thank you very much for allowing us to participate in the care of the patient. Fawn Gaytan MD cc: [id number] TT: 02/14/2017 18:34:31 Confirmation # [id number] Dictation # [id number] june
--- NOTE | 2017-02-14 19:21 | MRI ---
PROCEDURE: Magnetic Resonance Cholangiopancreatography HISTORY: Dilated pancreatic duct follow-up COMPARISON: Comparison is made to the previous MRCP dated 01/16/[address] of the abdomen and pelvis dated 01/13/2017. TECHNIQUE: Multiplanar, multisequence MR images of the abdomen were obtained, including heavily T2 weighted MRCP images of the biliary system. Rotating maximum intensity projection images of the biliary system were generated. FINDINGS: The study is again somewhat limited due to patient's motion. MRCP: The common bile duct is of a normal caliber. No evidence of choledocholithiasis. No intrahepatic biliary ductal dilatation. LIVER: No evidence of suspicious lesion or acute pathology. GALLBLADDER: Partially contracted. SPLEEN: Unremarkable. PANCREAS: The previously seen slightly dilated main pancreatic duct in the previous exam is less conspicuous in the current study. No evidence of suspicious mass in the pancreas. ADRENALS: Unremarkable. KIDNEYS: The kidneys are small in size. No evidence of hydronephrosis. AORTA: No aneurysm. ASCITES: There is small amount of free fluid in the upper abdomen. There is a small bilateral pleural effusion. OTHER FINDINGS: None. IMPRESSION: Suboptimal study is again due to patient's motion. Previously seen mildly dilated main pancreatic duct in the previous exam is less conspicuous and not clearly seen in the current study. No evidence of pancreatic mass. No evidence of biliary obstruction. Small amount of ascites in the abdomen. Small bilateral pleural effusion.
--- NOTE | 2017-02-14 23:03 | DS ---
SUBJECTIVE: The patient has no complaints of any chest pain or shortness of breath. He was initiall y admitted to the hospital because of having atypical chest pain. He was cleared by cardiology. He had been seen by GI and is scheduled for ERCP. He also is complaining of difficulty in urinating, so I am waiting for urology evaluation. If he is cleared, then he will be discharged home and followed up as an outpatient. He was dialyzed yesterday. He has no complaints of any headaches or dizziness , no nausea, no vomiting. PHYSICAL EXAMINATION: VITAL SIGNS: Temperature is 98.2, pulse of 87, blood pressure 155/105, respirations 18, O2 saturatio n 96%. GENERAL: The patient is comfortable, in no acute distress. HEENT: Anicteric sclerae. Moist mucosa. NECK: No JVD or adenopathy. CARDIAC: S1/S2. No murmurs. No rubs. Regular. RESPIRATORY: Clear to auscultation bilaterally. No wheezes, rales, or rhonchi. Good air entry. ABDOMEN: Bowel sounds are positive, soft, nontender, and nondistended. EXTREMITIES: No edema. Has 1+ pulses. ASSESSMENT: 1. Coronary artery disease. 2. Chest pain, atypical, resolved. 3. End-stage renal disease on hemodialysis. 4. Dysuria. 5. Left AV fistula. 6. Diabetes type 2. 7. Secondary hyperparathyroidism. 8. Hypertension. 9. Depression. PLAN: The patient is on aspirin. He is going to continue. He is on carvedilol for his coronary art miguelito disease. The patient is receiving Klonopin. He is on Levemir for his diabetes. He is on MiraLa x for his constipation. He is receiving Prozac for his depression. He is on Renagel for his seconda ry hyperparathyroidism. He is on lisinopril for his hypertension. The patient is on a liquid diet. Maurice Agarwal MD cc: [id number] TT: 02/14/2017 23:02:11 vt
== END 2017-02-14 18:07 | disposition home or self-care (01) | DRG 313 ==
LOC: ED 17:42 → ERH 19:45 → 2RNO 02-12 00:41 → 5RNO 02-13 14:26
PROVIDERS: ADMIT Internal Medicine; ATTEND Internal Medicine Nephrology
PROC: 3E0F7GC Introduction of Other Therapeutic Substance into Respiratory Tract, Via Natural or Artificial Opening (ICD-10-PCS; 2017-02-12)
PROC: 5A1D00Z (ICD-10-PCS; principal; 2017-02-13)
DX: R07.89 Other chest pain (principal); I13.2 Hypertensive heart and chronic kidney disease with heart failure and with stage 5 chronic kidney disease, or end stage renal disease; N18.6 End stage renal disease; E11.22 Type 2 diabetes mellitus with diabetic chronic kidney disease; I31.3 Pericardial effusion (noninflammatory); I50.9 Heart failure, unspecified; N25.81 Secondary hyperparathyroidism of renal origin; K85.90 Acute pancreatitis without necrosis or infection, unspecified; E11.65 Type 2 diabetes mellitus with hyperglycemia; E11.43 Type 2 diabetes mellitus with diabetic autonomic (poly)neuropathy; K31.84 Gastroparesis; I25.10 Atherosclerotic heart disease of native coronary artery without angina pectoris; D64.9 Anemia, unspecified; N40.0 Benign prostatic hyperplasia without lower urinary tract symptoms; J44.9 Chronic obstructive pulmonary disease, unspecified; K29.70 Gastritis, unspecified, without bleeding; K59.09 Other constipation; E03.9 Hypothyroidism, unspecified; K21.0 Gastro-esophageal reflux disease with esophagitis; F32.9 Major depressive disorder, single episode, unspecified; Z99.2 Dependence on renal dialysis; I25.2 Old myocardial infarction; Z95.5 Presence of coronary angioplasty implant and graft; Z79.02 Long term (current) use of antithrombotics/antiplatelets; Z79.82 Long term (current) use of aspirin; Z87.891 Personal history of nicotine dependence

== ENCOUNTER 2017-03-18 20:41 | Inpatient (IN) | payer MEDICARE, OTHER ==
[2017-03-18 20:48] VITALS: BMI 23.3
[2017-03-18] MEDS ORDERED: Nitroglycerin 2% Ointment Foilpak UD TOP STA (20:54)
--- NOTE | 2017-03-18 20:54 | ED PDOC ---
Arrival/HPI - General Chief Complaint: Chest Pain Time Seen by Provider: 03/18/17 20:44 Historian: Patient - History of Present Illness Narrative History of Present Illness (Text): 03/18/17 20:54 Jf Amos is a 66 year old male, whose past medical history includes ESRD on hemodialysis, CAD with stents, NIDDM, hypertension, and chronic anemia , who presents to the Emergency department complaining of mid-sternal chest pain for 1 week. Patient reports associated shortness of breath today and notes he was fully dialyzed yesterday. Patient denies any fever, chills, nausea, vomiting, diarrhea, urinary symptoms, back pain, neck pain, headache, dizziness , or any other complaints. Time/Duration: 1 week Symptom Onset: Gradual Symptom Course: Unchanged Activities at Onset: Rest, Light Context: Home Past Medical History - Provider Review Nursing Documentation Reviewed: Yes - Infectious Disease Hx of Infectious Diseases: None - Tetanus Immunization Tetanus Immunization: Unknown - Cardiac Hx Cardiac Disorders: Yes Hx Hypertension: Yes - Pulmonary Hx Chronic Obstructive Pulmonary Disease (COPD): Yes - Neurological Hx Neurological Disorder: No - HEENT Hx HEENT Disorder: No (WEARS RX GLASSES) Other/Comment: laser sx eyes - Renal Hx Dialysis: Yes (MWF) Type of Dialysis Access: L AV shunt Date of Last Dialysis Treatment: 03/17/17 Hx Renal Failure: Yes - Endocrine/Metabolic Hx Diabetes Mellitus Type 2: Yes - Hematological/Oncological Hx Blood Disorders: No - Integumentary Hx Dermatological Disorder: Yes Other/Comment: stage 1 r knee wound 2.5cm x 3cm wound bed red, ble skin discolorations, multiple skin discolorations b/l arms (from previous triage) - Musculoskeletal/Rheumatological Hx Falls: Yes Hx Spinal Stenosis: Yes - Gastrointestinal Hx Gastrointestinal Disorders: Yes - Genitourinary/Gynecological Hx Genitourinary Disorders: No Hx Prostate Problems: Yes - Psychiatric Hx Emotional Abuse: No Hx Physical Abuse: No Hx Substance Use: No - Surgical History Hx Coronary Stent: Yes (X2) Other/Comment: L FA AV shunt for dialysis - Anesthesia Hx Anesthesia: Yes Hx Anesthesia Reactions: No Hx Malignant Hyperthermia: No - Suicidal Assessment Feels Threatened In Home Enviroment: No Family/Social History - Physician Review Nursing Documentation Reviewed: Yes Family/Social History: Unknown Family HX Smoking Status: Former Smoker Hx Alcohol Use: No Hx Substance Use: No Hx Substance Use Treatment: No Allergies/Home Meds Allergies/Adverse Reactions: Allergies No Known Allergies Allergy (Verified 02/11/17 17:44) Home Medications: Home Meds Medication Instructions Recorded Confirmed Albuterol Sulfate [Albuterol 0.09 mg IH QID 10/22/13 03/18/17 Sulfate Hfa] clonazePAM [Klonopin] 0.5 mg PO BID 08/18/14 03/18/17 Aspirin [Aspirin EC] 81 mg PO DAILY 11/27/14 03/18/17 Carvedilol [Coreg] 25 mg PO BID 11/27/14 03/18/17 Insulin Detemir [Levemir] 40 units SC HS 11/27/14 03/18/17 Isosorbide Mononitrate [Imdur] 60 mg PO DAILY 11/27/14 03/18/17 Tiotropium [Spiriva] 18 mcg IH DAILY 03/23/15 03/18/17 Lisinopril [Zestril] 20 mg PO DAILY 05/26/16 03/18/17 Omeprazole 20 mg PO DAILY 06/29/16 03/18/17 Review of Systems - Physician Review All systems were reviewed & negative as marked: Yes - Review of Systems Constitutional: Normal. absent: Fevers Eyes: Normal ENT: Normal Respiratory: SOB Cardiovascular: Chest Pain Gastrointestinal: Normal. absent: Abdominal Pain, Diarrhea, Nausea, Vomiting Genitourinary Male: Normal. absent: Dysuria, Frequency, Hematuria, Urinary Output Changes Musculoskeletal: Normal. absent: Back Pain, Neck Pain Skin: Normal. absent: Rash Neurological: Normal. absent: Headache, Dizziness Endocrine: Normal Hemo/Lymphatic: Normal Psychiatric: Normal Physical Exam Vital Signs Reviewed: Yes Vital Signs Temp Pulse Resp BP Pulse Ox 03/18/17 23:49 72 164/97 H 03/18/17 22:53 75 18 156/88 H 99 03/18/17 20:50 98.1 F 78 18 162/82 H 93 L Temperature: Afebrile Blood Pressure: Hypertensive Pulse: Regular Respiratory Rate: Normal Appearance: Positive for: Well-Appearing, Non-Toxic, Comfortable Pain Distress: None Mental Status: Positive for: Alert and Oriented X 3 - Systems Exam Head: Present: Atraumatic, Normocephalic Pupils: Present: PERRL Extroacular Muscles: Present: EOMI Conjunctiva: Present: Normal Mouth: Present: Moist Mucous Membranes Neck: Present: Normal Range of Motion Respiratory/Chest: Present: Clear to Auscultation, Good Air Exchange. No: Respiratory Distress, Accessory Muscle Use Cardiovascular: Present: Regular Rate and Rhythm, Normal S1, S2. No: Murmurs Abdomen: Present: Normal Bowel Sounds. No: Tenderness, Distention, Peritoneal Signs Back: Present: Normal Inspection Upper Extremity: Present: Normal Inspection. No: Cyanosis, Edema Lower Extremity: Present: Normal Inspection. No: Edema Neurological: Present: GCS=15, CN II-XII Intact, Speech Normal Skin: Present: Warm, Dry, Normal Color. No: Rashes Psychiatric: Present: Alert, Oriented x 3, Normal Insight, Normal Concentration Medical Decision Making ED Course and Treatment: 03/18/17 20:54 Impression: 66 year old male complaining of chest pain and shortness of breath. Differential Diagnosis included but are not limited to: ACS vs. CHF vs. COPD vs. pneumonia vs. chest pain Plan: -- EKG -- Chest X-ray -- Labs, BNP, cardiac enzymes -- Urinalysis -- Nitroglycerin -- Reassess and disposition Prior Visits: Notes and results from previous visits were reviewed. On , pt was seen in the Emergency department for shortness of breath and chest pain. Pt was admitted to the hospital for further evaluation. Progress Notes: Reviewed EKG, NSR at [address] bpm[address] Non-specific ST/T wave changes. 03/18/17 21:08 Reviewed radiology, Chest X-ray shows no acute processes. 03/18/17 21:[address] Oakley, covering for Dr. Agarwal, who is aware and agrees with plan. Patient will go to telemetry observation for chest pain and pancreatitis. Pt is no acute distress. Discussed results and hospital observation plan with pt , who is aware and verbalizes understanding. - Lab Interpretations Lab Results: 03/18/17 20:50 03/18/17 20:50 Lab Results 03/18/17 20:50: Sodium 135, Potassium 4.3, Chloride 96 L, Carbon Dioxide 26, Anion Gap 17, BUN 61 H, Creatinine 7.1 H, Est GFR ( Amer) 9, Est GFR (Non -Af Amer) 8, Random Glucose 227 H, Calcium 9.6, Magnesium 2.0, Total Bilirubin 1.3, AST 19, ALT 24, Alkaline Phosphatase 291 H, Lactate Dehydrogenase 512, Total Creatine Kinase 24 L, Troponin I 0.12 D, NT-Pro-B Natriuret Pep [id number] H , Total Protein 5.8, Albumin 2.9 L, Globulin 3.0, Albumin/Globulin Ratio 1.0 L, Lipase 520 H 03/18/17 20:50: WBC 5.4, RBC 3.13 L, Hgb 9.0 L, Hct 28.6 L, MCV 91.4, MCH 28.8, MCHC 31.5, RDW 15.9 H, Plt Count 165, MPV 11.9 H, Gran % 74.5 H, Lymph % (Auto) 13.1 L, [place] % (Auto) 7.5 H, Eos % (Auto) 4.5, Baso % (Auto) 0.4, Gran # 4.00, Lymph # 0.7 L, [place] # 0.4, Eos # 0.2, Baso # 0.02 I have reviewed the lab results: Yes - RAD Interpretation Radiology Orders: 03/18/17 20:54 CHEST PORTABLE [RAD] Stat Messaging Architect: ED Physician - EKG Interpretation Interpreted by ED Physician: Yes Type: 12 lead EKG - Medication Orders Current Medication Orders: Albuterol/Ipratropium (Duoneb 3 Mg/0.5 Mg (3 Ml) Ud) 3 ml IH Q6 [facility] Stop: 03/23/17 12:01 Last Admin: 03/20/17 01:57 Dose: 3 ml Aspirin (Ecotrin) 81 mg PO DAILY [facility] Last Admin: 03/19/17 10:36 Dose: 81 mg Carvedilol (Coreg) 25 mg PO Q12H [facility] Last Admin: 03/19/17 21:33 Dose: 25 mg Clonazepam (Klonopin) 0.5 mg PO BID [facility] PRN Reason: Protocol Last Admin: 03/19/17 17:28 Dose: 0.5 mg Clopidogrel Bisulfate (Plavix) 75 mg PO DAILY [facility] Last Admin: 03/19/17 10:36 Dose: 75 mg Fluoxetine HCl (Prozac) 20 mg PO DAILY [facility] Last Admin: 03/19/17 10:37 Dose: 20 mg Guaifenesin/Dextromethorphan (Robitussin Dm) 5 ml PO Q4H PRN PRN Reason: Cough Last Admin: 03/19/17 18:00 Dose: 5 ml Insulin Detemir (Levemir) 40 unit SC [facility] Last Admin: 03/19/17 22:58 Dose: Not Given Non-Admin Reason: Blood Sugar Parameter Comments: held, poor food intake BG 100 Insulin Human Lispro (Humalog Med) 0 units SC ACHS [facility] PRN Reason: Protocol Last Admin: 03/19/17 22:58 Dose: Not Given Non-Admin Reason: Blood Sugar Parameter Isosorbide Mononitrate (Imdur) 60 mg PO DAILY [facility] Last Admin: 03/19/17 10:36 Dose: 60 mg Lisinopril (Zestril) 20 mg PO DAILY [facility] Last Admin: 03/19/17 10:37 Dose: 20 mg Mirtazapine (Remeron) 15 mg PO HS [facility] Last Admin: 03/19/17 21:33 Dose: 15 mg Pantoprazole Sodium (Protonix Ec Tab) 40 mg PO 0600 [facility] Last Admin: 03/19/17 05:25 Dose: 40 mg Sevelamer HCl (Renagel) 1,600 mg PO TID [facility] Last Admin: 03/19/17 17:28 Dose: 1,600 mg Tamsulosin HCl (Flomax) 0.4 mg PO DAILY [facility] Last Admin: 03/19/17 10:36 Dose: 0.4 mg Tiotropium [place] (Spiriva) 18 mcg IH DAILY [facility] Last Admin: 03/19/17 10:37 Dose: 18 mcg Discontinued Medications Carvedilol (Coreg) 25 mg PO BID [facility] Last Admin: 03/18/17 23:49 Dose: 25 mg Carvedilol (Coreg) 25 mg PO BID [facility] Morphine Sulfate (Morphine) 2 mg IVP STAT STA Stop: 03/18/17 21:41 Last Admin: 03/18/17 21:53 Dose: 2 mg Re-Assess: MARANDA Pain Assessment Document 03/19/17 00:17 MS (Rec: 03/19/17 00:17 MS [facility] [id number]) Pain Reassessment Is this a pain reassessment? Yes Sleep Is patient sleeping during reassessment? No Presence of Pain Presence of Pain No Nitroglycerin (Nitro-Bid 2% Oint) 1 ea TOP ONCE STA Stop: 03/18/17 20:55 Last Admin: 03/18/17 21:03 Dose: 1 ea - Scribe Statement The provider has reviewed the documentation as recorded by the Addis Garza Provider Christyibe Attestation: All medical record entries made by the Scribe were at my direction and personally dictated by me. I have reviewed the chart and agree that the record accurately reflects my personal performance of the history, physical exam, medical decision making, and the department course for this patient. I have also personally directed, reviewed, and agree with the discharge instructions and disposition. Disposition/Present on Arrival - Present on Arrival Any Indicators Present on Arrival: No History of DVT/PE: No History of Uncontrolled Diabetes: Yes Urinary Catheter: No History of Decub. Ulcer: No History Surgical Site Infection Following: None - Disposition Have Diagnosis and Disposition been Completed?: Yes Diagnosis: Renal failure (ARF), acute on chronic, Chest pain, Pancreatitis Disposition: HOSPITALIZED Disposition Time: 22:00 Condition: FAIR
[2017-03-18 21:12] LABS: BASO # 0.02 K/mm3 (0.0-2.0); BASO % 0.4 % (0.0-3.0); EOS # 0.2 (0.0-0.7); EOS % 4.5 % (1.5-5.0); GRAN % 74.5 % (50.0-68.0); LYMPH # 0.7 (1.2-3.4); LYMPH % 13.1 % (22.0-35.0); MEAN CELL VOLUME 91.4 fL (80.0-105.0); MEAN CORPUSCULAR HEMOGLOBIN 28.8 pg (25.0-35.0); MEAN CORPUSCULAR HGB CONC 31.5 g/dl (31.0-37.0); MEAN PLATELET VOLUME 11.9 fl (7.0-11.0); MONO # 0.4 (0.1-0.6); MONO % 7.5 % (1.0-6.0); PLATELET COUNT 165 10^3/uL (120.0-450.0); RBC 3.13 10^6/uL (3.5-6.1); RED CELL DISTRIBUTION WIDTH 15.9 % (11.5-14.5); WHITE BLOOD COUNT 5.4 10^3/ul (4.5-11.0)
[2017-03-18 21:22] LABS: ALBUMIN 2.9 g/dL (3.0-4.8); CALCIUM 9.6 mg/dL (8.4-10.5)
[2017-03-18 21:35] LABS: TROPONIN I 0.12 ng/mL
[2017-03-18] MEDS ORDERED: Morphine 2 mg/ml ISec IVP STA (21:40)
[2017-03-18] MEDS: Insulin Detemir 100 units/ml Vial (Levemir) SC SCH (23:55)
[2017-03-19] MEDS: Albuterol-Ipratrop 3 mg / 0.5 (3 ml) UD IH SCH ×4 (00:45→19:55)
[2017-03-19] MEDS: Pantoprazole 40 mg EC Tab PO SCH (05:25)
--- NOTE | 2017-03-19 10:21 | RAD ---
HISTORY: CP COMPARISON: 02/11/2017 FINDINGS: LUNGS: No active pulmonary disease. PLEURA: No significant pleural effusion identified, no pneumothorax apparent. CARDIOVASCULAR: Normal. OSSEOUS STRUCTURES: No significant abnormalities. VISUALIZED UPPER ABDOMEN: Normal. OTHER FINDINGS: None. IMPRESSION: No active disease.
[2017-03-19] MEDS: Tiotropium 18 mcg Cap For Inhalation IH SCH (10:37)
[2017-03-19] MEDS: guaiFENesin DM 100 mg-10 mg/5 ml UD PO PRN ×2 (11:05→18:00)
[2017-03-19 11:07] LABS: BASO # 0.02 K/mm3 (0.0-2.0); BASO % 0.3 % (0.0-3.0); EOS # 0.3 (0.0-0.7); EOS % 3.8 % (1.5-5.0); GRAN # 5.77 (1.4-6.5); HEMOGLOBIN 9.6 gm/dL (14.0-18.0); LYMPH # 0.8 (1.2-3.4); LYMPH % 11.4 % (22.0-35.0); MEAN CORPUSCULAR HEMOGLOBIN 28.6 pg (25.0-35.0); MEAN CORPUSCULAR HGB CONC 31.1 g/dl (31.0-37.0); MEAN PLATELET VOLUME 11.7 fl (7.0-11.0); MONO # 0.4 (0.1-0.6); MONO % 5.5 % (1.0-6.0); PLATELET COUNT 154 10^3/uL (120.0-450.0); RBC 3.36 10^6/uL (3.5-6.1); RED CELL DISTRIBUTION WIDTH 15.9 % (11.5-14.5); WHITE BLOOD COUNT 7.3 10^3/ul (4.5-11.0)
[2017-03-19 11:23] LABS: CALCIUM 9.6 mg/dL (8.4-10.5)
--- NOTE | 2017-03-19 11:32 | CARD ---
APPROVED REPORT EKG Measurement Heart [id number] <Conclusion> Normal sinus rhythm ST & T wave abnormality, consider lateral ischemia Abnormal ECG
--- NOTE | 2017-03-19 11:33 | CARD ---
APPROVED REPORT EKG Measurement Heart [id number] <Conclusion> Normal sinus rhythm Possible Left atrial enlargement ST & T wave abnormality, consider lateral ischemia Abnormal ECG
--- NOTE | 2017-03-19 14:57 | CON ---
DATE: 03/19/2017 INDICATIONS: Chest pain. HISTORY OF PRESENT ILLNESS: This is a 66-year-old man known to us from prior admissions, admitted yesterday through the emergency room with chest discomfort following hemodialysis. The pain was across the chest, associated with some shortness of breath. It resolved in the emergency room. He has no chest pain now and was stable during the night. There was no orthopnea, PND, syncope, presyncope, light headedness, dizziness, vertigo, palpitations, fever, chills, cough, sputum production, hemoptysis, abdominal pain, nausea, vomiting, diarrhea, constipation, melena. PAST MEDICAL HISTORY: Complex. He has been previously admitted for chest pain and underwent a nuclear stress test in October which demonstrated fixed inferior and inferolateral defect and a left ventricular ejection fraction of 30% and echocardiogram demonstrated global hypokinesis with moderate MR and TR. He has chronic kidney disease and undergoes hemodialysis three times per week. He has a history of hypertension, hyperlipidemia, diabetes, peptic ulcer disease, esophagitis, gastritis, COPD, hypothyroidism, BPH, GERD, liver failure and anemia. MEDICATIONS: At the time of admission, include albuterol, aspirin, Coreg, Flomax, Imdur, Klonopin, Levemir, Omeprazole, Plavix, Prozac, Remeron, Renagel, Spiriva, and Zestril. ALLERGIES: There were no known medication allergies. SOCIAL HISTORY: He lives at home. He is a former smoker. There is a history of alcohol abuse in the past. FAMILY HISTORY: Unremarkable. REVIEW OF SYSTEMS: A 10-point review of systems otherwise unremarkable except as noted above. PHYSICAL EXAMINATION GENERAL: He is a well-developed male in no acute distress, lying in bed on telemetry. VITAL SIGNS: Notable for sinus rhythm at 77 beats per minute, he is afebrile, blood pressure is elevated at 170/99, respirations are 18 to 22, and O2 saturation 99% on nasal cannula. HEENT: Reveals no neck vein distention, thyromegaly, or carotid bruits. Mucous membranes moist. Conjunctivae pink. NECK: Supple. LUNGS: Lung manrique clear. HEART: Examination of the heart revealed normal first and second heart sounds. There is a soft systolic murmur along the left sternal border. The PMI is not displaced. ABDOMEN: Soft. Bowel sounds are present. No mass, organomegaly, tenderness, rebound, guarding, CVA tenderness, or palpable abdominal aortic aneurysm. EXTREMITIES: Revealed no cyanosis, clubbing, or edema . NEUROLOGIC: Awake, alert, and oriented. PSYCHIATRIC: Normal as to mood and affect. SKIN: Warm and dry. No rash or cellulitis. LABORATORY AND IMAGING: Chest x-ray is not yet interpreted. It shows cardiomegaly by my reading. No infiltrate or effusion. No CHF. EKG is not available for comparison apparently it showed sinus rhythm with no acute changes. I will review it once it is logged in. White count normal, platelet count normal, hemoglobin 9, hematocrit 28.6. Electrolytes unremarkable. BUN 61, creatinine 7.1. Blood sugar is 370 and 227. Magnesium 2.0. AST and ALT normal. Alk phos 291. Total CK 24. Troponin 0.12. BNP 371,000. Lipase elevated at 520. IMPRESSION: The patient is a 66-year-old man an admission for chest pain, shortness of breath with elevated lipase, possible pancreatitis with a history of chronic kidney disease status post recent hemodialysis with a history of coronary artery disease, remote coronary stent, and LV dysfunction, and a stress test in [facility], which demonstrated fixed inferior and inferolateral defects and a left ventricular ejection fraction of 30%. An echocardiogram in December demonstrated global hypokinesis with moderate MR and TR. PLAN: At this time, he is on telemetry. We will get serial EKGs and enzymes. I will review his old records. He have a gastrointestinal evaluation for possible pancreatitis. His blood pressure is elevated. We will give him his morning medications early today and monitor this closely. He is getting Coreg, aspirin, isosorbide, lisinopril, Plavix, aspirin as well as Flomax, Klonopin, Levemir, Protonix, Prozac, Remeron, Renagel, Spiriva. He is getting nitropaste. We will monitor I's and O's. Dr. Gutierres will arrange followup hemodialysis for him. With recurrent chest pain and an abnormal nuclear stress test consistent with myocardial infarction done in 10/2016, he should be considered for cardiac catheterization. We will discuss this further based on his clinical course. I will follow along with you. I will make additional recommendations based on his clinical course. Joel Elizalde MD [facility] # [id number] [facility] SYSTEM[facility]amin
[2017-03-19] MEDS: Insulin Lispro (humaLOG) MEDIUM Coverage SC SCH ×2 (17:27→22:58)
--- NOTE | 2017-03-19 22:19 | HP ---
DATE: 03/19/2017 HISTORY OF PRESENT ILLNESS: Mr. Amos is a 66-year-old male with end stage renal disease on hemodialysis. He came with chest pain to the ER retrosternal. He was found to have elevated lipase at 500, elevated BNP. Troponins were negative. He also has history of diabetes mellitus, hypertension, has chronic anemia, hemoglobin and hematocrit have been stable. He has past history of acute pancreatitis, hospitalized for that. Denies any fevers, chills, or rigors. He had nausea and vomiting at home. No vomiting today, complaining of nausea. PAST MEDICAL HISTORY: End stage renal disease, diabetes mellitus type 2, hypertension, COPD, spinal stenosis, enlarged prostate. PAST SURGICAL HISTORY: Coronary artery stent placement x2, AV shunt for dialysis. FAMILY HISTORY: Noncontributory. No positive history in mother or father. PERSONAL HISTORY: Former smoker, no history of alcohol abuse. SOCIAL HISTORY: Lives at home. ALLERGIES: No known drug allergies. HOME MEDICATIONS: Albuterol q.i.d., Klonopin 0.5 mg p.o. b.i.d., aspirin 81 mg daily, Coreg 25 mg p.o. b.i.d., Levemir 40 mg subcutaneous at bedtime, Imdur 60 mg daily, Spiriva 18 mcg inhalation daily, lisinopril 20 mg daily, omeprazole 20 mg daily. REVIEW OF SYSTEMS: As per HPI. Rest of 12 point review of systems reviewed, negative. PHYSICAL EXAMINATION GENERAL: Comfortable in bed, in no acute distress. VITAL SIGNS: Temperature 98.1, heart rate is 70 per minute, respiratory rate 18 per minute, blood pressure 160/80, heart rate is 93 per minute. HEENT: Normal. Pallor positive. NECK: No lymphadenopathy. CHEST: Air entry present, equal, bilateral. No added sounds. CARDIOVASCULAR: S1, S2 normal. No murmur, no gallop. ABDOMEN: Soft, nontender. No hepatosplenomegaly. EXTREMITIES: No edema. SKIN: Warm, dry, intact. [employer]: Alert, oriented x3. No focal, sensory, motor deficit. Spine nontender. LABORATORY DATA: White count 5.4, hemoglobin 9, hematocrit 28.6, platelet count 165. Sodium 135, potassium 4.3, creatinine 7.1, glucose 227. Troponin 0.12. BNP 371,000. Lipase 520. Amylase 136. ASSESSMENT AND PLAN: Chest pain. He will be admitted to tele monitoring. Cardiac enzymes are normal. Cardiac consultation with *------* requested. He has elevated lipase to 520. He will have liquid diet. GI consultation with Dr. Gaytan requested. He has a history of pancreatitis. We will monitor the pancreatic enzymes, they declined today to 391, yesterday elevated to 520, amylase is 136. He is able to tolerate liquid. We will give Zofran 4 mg IV q.6 hours p.r.n. We will continue Levemir 40 units subcutaneous at bedtime, insulin sliding scale medium level. Continue aspirin and Plavix. Continue Coreg 25 mg p.o. q.12, Klonopin 0.5 mg p.o. b.i.d., Imdur 60 mg daily, lisinopril 20 mg daily, Renagel 1600 p.o. t.i.d., Flomax 0.4 mg daily, DuoNeb and Spiriva. Monitor the blood glucose, monitor pancreatic enzymes. He has chronic anemia, hemoglobin 9.6, stable related to chronic kidney disease. Monitor iron deficiency also. He will need erythropoietin stimulating agent to maintain the normal hemoglobin. Poonam Oakley MD
--- NOTE | 2017-03-19 22:48 | CP.PCM.CON ---
History of Present Illness - History of Present Illness History of Present Illness: this 66 patient with a possibility history of end-stage liver disease on hemodialysis, admitted with the chest pain and abdominal pain elevated pancreatic enzymes. Patient did have significant elevated BNP over 137,000. Patient is being evaluated by the medicare sales executive for congestive heart failure predominantly right-sided failure. Patient was hospitalized in the past with the acute liver failure which was thought to be secondary to the low perfusion ischemic injury patient had a significant improvement from that. Also found to have a elevated pancreatic enzymes ultrasound did not show any gallstones MRCP initially showed some mildly dilated pancreatic duct a subsequent MRCP did not reveal any pancreatic lesions or ductal dilation. Patient was doing well until this recent episode since last admission. Review of Systems - Review of Systems All systems: reviewed and no additional remarkable complaints except - Constitutional Constitutional: absent: Fever, Headache - EENT Eyes: absent: Diplopia, Pain Ears: absent: Ear Discharge, Tinnitus Nose/Mouth/Throat: absent: Nasal Discharge, Dysphagia - Cardiovascular Cardiovascular: Chest Pain, Dyspnea - Respiratory Respiratory: Cough. absent: Dyspnea - Gastrointestinal Gastrointestinal: As Per HPI - Genitourinary Additional comments: on hemodialysis - Neurological Neurological: absent: Abnormal Movements, Convulsions, Numbness - Psychiatric Psychiatric: Depression. absent: Confusion - Hematologic/Lymphatic Hematologic: absent: Easy Bleeding, Lymphadenopathy Past Patient History - Infectious Disease Hx of Infectious Diseases: None - Tetanus Immunizations Tetanus Immunization: Unknown - Past Medical History & Family History Past Medical History?: Yes - Past Social History Smoking Status: Former Smoker Alcohol: None - CARDIAC Hx Cardiac Disorders: Yes Hx Hypertension: Yes - PULMONARY Hx Chronic Obstructive Pulmonary Disease (COPD): Yes - NEUROLOGICAL Hx Neurological Disorder: No - HEENT Hx HEENT Problems: No (WEARS RX GLASSES) Other/Comment: laser sx eyes - RENAL Hx Dialysis: Yes (MWF) Type of Dialysis Access: L AV shunt Date of Last Dialysis Treatment: 03/17/17 Hx Renal Failure: Yes - ENDOCRINE/METABOLIC Hx Diabetes Mellitus Type 2: Yes - HEMATOLOGICAL/ONCOLOGICAL Hx Blood Disorders: No - INTEGUMENTARY Hx Dermatological Problems: Yes Other/Comment: stage 1 r knee wound 2.5cm x 3cm wound bed red, ble skin discolorations, multiple skin discolorations b/l arms (from previous triage) - MUSCULOSKELETAL/RHEUMATOLOGICAL Hx Falls: Yes Hx Spinal Stenosis: Yes - GASTROINTESTINAL Hx Gastrointestinal Disorders: Yes - GENITOURINARY/GYNECOLOGICAL Hx Genitourinary Disorders: No Hx Prostate Problems: Yes - PSYCHIATRIC Hx Emotional Abuse: No Hx Physical Abuse: No Hx Substance Use: No - SURGICAL HISTORY Hx Coronary Stent: Yes (X2) Other/Comment: L FA AV shunt for dialysis - ANESTHESIA Hx Anesthesia: Yes Hx Anesthesia Reactions: No Hx Malignant Hyperthermia: No Meds Allergies/Adverse Reactions: Allergies Allergy/AdvReac Type Severity Reaction Status Date / Time No Known Allergies Allergy Verified 02/11/17 17:44 - Medications Medications: Current Medications Albuterol/Ipratropium (Duoneb 3 Mg/0.5 Mg (3 Ml) Ud) 3 ml IH Q6 [facility] Stop: 03/23/17 12:01 Last Admin: 03/19/17 19:55 Dose: 3 ml Aspirin (Ecotrin) 81 mg PO DAILY [facility] Last Admin: 03/19/17 10:36 Dose: 81 mg Carvedilol (Coreg) 25 mg PO Q12H [facility] Last Admin: 03/19/17 21:33 Dose: 25 mg Clonazepam (Klonopin) 0.5 mg PO BID [facility] PRN Reason: Protocol Last Admin: 03/19/17 17:28 Dose: 0.5 mg Clopidogrel Bisulfate (Plavix) 75 mg PO DAILY [facility] Last Admin: 03/19/17 10:36 Dose: 75 mg Fluoxetine HCl (Prozac) 20 mg PO DAILY [facility] Last Admin: 03/19/17 10:37 Dose: 20 mg Guaifenesin/Dextromethorphan (Robitussin Dm) 5 ml PO Q4H PRN PRN Reason: Cough Last Admin: 03/19/17 18:00 Dose: 5 ml Insulin Detemir (Levemir) 40 unit SC [facility] Last Admin: 03/18/17 23:55 Dose: Not Given Insulin Human Lispro (Humalog Med) [address] [facility] PRN Reason: Protocol Last Admin: 03/19/17 17:27 Dose: 7 units Isosorbide Mononitrate (Imdur) 60 mg PO DAILY [facility] Last Admin: 03/19/17 10:36 Dose: 60 mg Lisinopril (Zestril) 20 mg PO DAILY [facility] Last Admin: 03/19/17 10:37 Dose: 20 mg Mirtazapine (Remeron) 15 mg PO HS [facility] Last Admin: 03/19/17 21:33 Dose: 15 mg Pantoprazole Sodium (Protonix Ec Tab) 40 mg PO 0600 [facility] Last Admin: 03/19/17 05:25 Dose: 40 mg Sevelamer HCl (Renagel) 1,600 mg PO TID [facility] Last Admin: 03/19/17 17:28 Dose: 1,600 mg Tamsulosin HCl (Flomax) 0.4 mg PO DAILY [facility] Last Admin: 03/19/17 10:36 Dose: 0.4 mg Tiotropium [place] (Spiriva) 18 mcg IH DAILY [facility] Last Admin: 03/19/17 10:37 Dose: 18 mcg Physical Exam - Constitutional Appears: No Acute Distress - Head Exam Head Exam: ATRAUMATIC, NORMOCEPHALIC - Eye Exam Eye Exam: EOMI, PERRL - ENT Exam ENT Exam: Mucous Membranes Moist - Respiratory Exam Respiratory Exam: absent: Respiratory Distress Additional comments: slightly reduced to a basal air entry. Normal Sarita breath sounds and occasional rales present at the base - Cardiovascular Exam Cardiovascular Exam: +S1, +S2. absent: Bradycardia Results - Vital Signs Recent Vital Signs: Last Vital Signs Temp 99.4 F 03/19/17 17:13 Pulse 74 03/19/17 21:33 Resp 18 03/19/17 17:13 BP 140/86 03/19/17 21:33 Pulse Ox 99 03/19/17 06:00 - Labs Result Diagrams: 03/19/17 10:00 03/19/17 10:00 Labs: Laboratory Results - last 24 hr 03/19/17 03/19/17 03/19/17 07:15 09:34 10:00 WBC 7.3 D RBC 3.36 L Hgb 9.6 L Hct 30.9 L MCV 92.0 MCH 28.6 MCHC 31.1 RDW 15.9 H Plt Count 154 MPV 11.7 H Gran % 79.0 H Lymph % (Auto) 11.4 L [place] % (Auto) 5.5 Eos % (Auto) 3.8 Baso % (Auto) 0.3 Gran # 5.77 Lymph # 0.8 L [place] # 0.4 Eos # 0.3 Baso # 0.02 Sodium Potassium Chloride Carbon Dioxide Anion Gap BUN Creatinine Est GFR ( Amer) Est GFR (Non-Af Amer) POC Glucose (mg/dL) 370 H Random Glucose Calcium Troponin I 0.10 Amylase Lipase 03/19/17 03/19/17 03/19/17 10:00 11:24 15:48 WBC RBC Hgb Hct MCV MCH MCHC RDW Plt Count MPV Gran % Lymph % (Auto) [place] % (Auto) Eos % (Auto) Baso % (Auto) Gran # Lymph # [place] # Eos # Baso # Sodium 135 Potassium 4.8 Chloride 95 L Carbon Dioxide 25 Anion Gap 20 BUN 80 H Creatinine 8.2 H* Est GFR ( Amer) 8 Est GFR (Non-Af Amer) 7 POC Glucose (mg/dL) 315 H 316 H Random Glucose 324 H* D Calcium 9.6 Troponin I Amylase 136 H Lipase 391 H 03/19/17 21:51 WBC RBC Hgb Hct MCV MCH MCHC RDW Plt Count MPV Gran % Lymph % (Auto) [place] % (Auto) Eos % (Auto) Baso % (Auto) Gran # Lymph # [place] # Eos # Baso # Sodium Potassium Chloride Carbon Dioxide Anion Gap BUN Creatinine Est GFR ( Amer) Est GFR (Non-Af Amer) POC Glucose (mg/dL) 100 Random Glucose Calcium Troponin I Amylase Lipase Assessment & Plan - Assessment and Plan (Free Text) Assessment: this 66-year-old patient with end-stage renal disease, on hemodialysis, coronary artery disease, diabetes mellitus, COPD, admitted with shortness of breath chest pain and abdominal discomfort. He has mildly elevated pancreatic enzymes. Patient did have 2 MRIs in the past to further evaluate mildly elevated pancreatic enzymes did not find any focal lesion did have mildly dilated pancreatic ducts reportedly previous MR recent MRI did not reveal any significant dilation no focal mass was reported. Patient does have significantly elevated BNP ejection fraction around 30% before the cause could be congestive heart failure with hepatic congestion predominantly right-sided involvement relatively clear lung manrique. History of anemia chronic constipation worsening of the symptoms recently would benefit from elective colonoscopy evaluation. Would consider EUS evaluation after further cardiac optimization based on the clinical course
[2017-03-19] MEDS: Insulin Detemir 100 units/ml Vial (Levemir) SC SCH (22:58)
[2017-03-20] MEDS: Albuterol-Ipratrop 3 mg / 0.5 (3 ml) UD IH SCH ×4 (01:57→19:49)
[2017-03-20] MEDS: Pantoprazole 40 mg EC Tab PO SCH (05:31)
[2017-03-20] MEDS: Insulin Lispro (humaLOG) MEDIUM Coverage SC SCH ×4 (07:59→22:32)
--- NOTE | 2017-03-20 08:04 | CP.PCM.PN ---
Subjective - Date & Time of Evaluation Date of Evaluation: 03/20/17 Time of Evaluation: 07:00 - Subjective Subjective: Stable on 2R. No further CP. No SOB. V/S noted. RSR PE: Lungs: clear Cor.: S1S2, systolic murmur Abd.: soft Ext.: no edema Neuro.: alert Labs 03/19 noted. Trop. = 0.10. Amylase, Lipase noted. ECG 03/19/17: RSR, STTW changes c/w ischemia. No change Objective - Vital Signs/Intake and Output Vital Signs (last 24 hours): Temp Pulse Resp BP Pulse Ox 98.1 F 71 20 135/76 95 03/20/17 05:57 03/20/17 05:57 03/20/17 05:57 03/20/17 05:57 03/20/17 05:57 Intake and Output: 03/20/17 03/20/17 06:59 18:59 Intake Total 1200 Balance 1200 - Medications Medications: Current Medications Albuterol/Ipratropium (Duoneb 3 Mg/0.5 Mg (3 Ml) Ud) 3 ml IH Q6 [facility] Stop: 03/23/17 12:01 Last Admin: 03/20/17 01:57 Dose: 3 ml Aspirin (Ecotrin) 81 mg PO DAILY [facility] Last Admin: 03/19/17 10:36 Dose: 81 mg Carvedilol (Coreg) 25 mg PO Q12H [facility] Last Admin: 03/19/17 21:33 Dose: 25 mg Clonazepam (Klonopin) 0.5 mg PO BID [facility] PRN Reason: Protocol Last Admin: 03/19/17 17:28 Dose: 0.5 mg Clopidogrel Bisulfate (Plavix) 75 mg PO DAILY [facility] Last Admin: 03/19/17 10:36 Dose: 75 mg Fluoxetine HCl (Prozac) 20 mg PO DAILY [facility] Last Admin: 03/19/17 10:37 Dose: 20 mg Guaifenesin/Dextromethorphan (Robitussin Dm) 5 ml PO Q4H PRN PRN Reason: Cough Last Admin: 03/19/17 18:00 Dose: 5 ml Insulin Detemir (Levemir) 40 unit SC HS [facility] Last Admin: 03/19/17 22:58 Dose: Not Given Insulin Human Lispro (Humalog Med) 0 units SC [facility]S [facility] PRN Reason: Protocol Last Admin: 03/19/17 22:58 Dose: Not Given Isosorbide Mononitrate (Imdur) 60 mg PO DAILY [facility] Last Admin: 03/19/17 10:36 Dose: 60 mg Lisinopril (Zestril) 20 mg PO DAILY [facility] Last Admin: 03/19/17 10:37 Dose: 20 mg Mirtazapine (Remeron) 15 mg PO HS [facility] Last Admin: 03/19/17 21:33 Dose: 15 mg Pantoprazole Sodium (Protonix Ec Tab) 40 mg PO 0600 [facility] Last Admin: 03/20/17 05:31 Dose: 40 mg Sevelamer HCl (Renagel) 1,600 mg PO TID [facility] Last Admin: 03/19/17 17:28 Dose: 1,600 mg Tamsulosin HCl (Flomax) 0.4 mg PO DAILY [facility] Last Admin: 03/19/17 10:36 Dose: 0.4 mg Tiotropium [place] (Spiriva) 18 mcg IH DAILY [facility] Last Admin: 03/19/17 10:37 Dose: 18 mcg - Labs Labs: 03/19/17 10:00 03/19/17 10:00 Assessment and Plan - Assessment and Plan (Free Text) Assessment: Chest Pain and Dyspnea Possible pancreatitis CKD/HD 3x per week CAD/SD/PCI/LVD Abnormal nuclear stress test 11/11: fixed inf. and inferolateral defects, EF 30% Echo 01/11: Global HK, Mod. MR and TR HBP HLD Diabetes PUD/GERD Liver Disease s/p acute liver failure, H/O ETOH COPD BPH Anemia Hypothyroidism Plan: As per GI Given CP and Dyspnea, and abn nuclear stress test 11/11, consider cardiac cath/ possible PCI for Wed. As per Dr. Agarwal. HD today OOB Monitor: labs, I/O, sats, etc.
[2017-03-20 08:09] LABS: AMYLASE 114 U/L (35-125); LIPASE 164 U/L (23-300)
[2017-03-20 10:18] LABS: BASO # 0.02 K/mm3 (0.0-2.0); BASO % 0.4 % (0.0-3.0); EOS # 0.3 (0.0-0.7); EOS % 5.8 % (1.5-5.0); GRAN # 3.95 (1.4-6.5); GRAN % 73.2 % (50.0-68.0); HEMOGLOBIN 8.7 gm/dL (14.0-18.0); LYMPH # 0.8 (1.2-3.4); LYMPH % 14.7 % (22.0-35.0); MEAN CELL VOLUME 88.2 fL (80.0-105.0); MEAN CORPUSCULAR HEMOGLOBIN 28.6 pg (25.0-35.0); MEAN CORPUSCULAR HGB CONC 32.5 g/dl (31.0-37.0); MEAN PLATELET VOLUME 11.2 fl (7.0-11.0); MONO # 0.3 (0.1-0.6); MONO % 5.9 % (1.0-6.0); PLATELET COUNT 153 10^3/uL (120.0-450.0); RBC 3.04 10^6/uL (3.5-6.1); RED CELL DISTRIBUTION WIDTH 15.8 % (11.5-14.5); WHITE BLOOD COUNT 5.4 10^3/ul (4.5-11.0)
[2017-03-20 10:31] LABS: ALB/GLOB RATIO 0.9 (1.1-1.8); ALBUMIN 2.7 g/dL (3.0-4.8); CALCIUM 9.4 mg/dL (8.4-10.5)
--- NOTE | 2017-03-20 10:39 | CP.PCM.PN ---
<Inna Palafox - Last Filed: 03/20/17 10:38> Subjective - Date & Time of Evaluation Date of Evaluation: 03/20/17 Time of Evaluation: 09:15 - Subjective Subjective: Seen and examined, chart reviewed. Tolerated clear liquid, he c/o "sour taste in mouth" no n/v or abdominal pain. He is upset, he feels he comes in for same reasons and nothing is being done. No acute overnight events, no SOB or chest pain. Objective - Vital Signs/Intake and Output Vital Signs (last 24 hours): Temp Pulse Resp BP Pulse Ox 98.1 F 71 20 135/76 95 03/20/17 05:57 03/20/17 05:57 03/20/17 05:57 03/20/17 05:57 03/20/17 05:57 Intake and Output: 03/20/17 03/20/17 06:59 18:59 Intake Total 1200 Balance 1200 - Medications Medications: Current Medications Albuterol/Ipratropium (Duoneb 3 Mg/0.5 Mg (3 Ml) Ud) 3 ml IH Q6 [facility] Stop: 03/23/17 12:01 Last Admin: 03/20/17 08:29 Dose: 3 ml Aspirin (Ecotrin) 81 mg PO DAILY [facility] Last Admin: 03/19/17 10:36 Dose: 81 mg Carvedilol (Coreg) 25 mg PO Q12H [facility] Last Admin: 03/19/17 21:33 Dose: 25 mg Clonazepam (Klonopin) 0.5 mg PO BID [facility] PRN Reason: Protocol Last Admin: 03/19/17 17:28 Dose: 0.5 mg Clopidogrel Bisulfate (Plavix) 75 mg PO DAILY [facility] Last Admin: 03/19/17 10:36 Dose: 75 mg Fluoxetine HCl (Prozac) 20 mg PO DAILY [facility] Last Admin: 03/19/17 10:37 Dose: 20 mg Guaifenesin/Dextromethorphan (Robitussin Dm) 5 ml PO Q4H PRN PRN Reason: Cough Last Admin: 03/19/17 18:00 Dose: 5 ml Insulin Detemir (Levemir) 40 unit SC HS [facility] Last Admin: 03/19/17 22:58 Dose: Not Given Insulin Human Lispro (Humalog Med) 0 units SC ACHS [facility] PRN Reason: Protocol Last Admin: 03/20/17 07:59 Dose: Not Given Isosorbide Mononitrate (Imdur) 60 mg PO DAILY [facility] Last Admin: 03/19/17 10:36 Dose: 60 mg Lisinopril (Zestril) 20 mg PO DAILY [facility] Last Admin: 03/19/17 10:37 Dose: 20 mg Mirtazapine (Remeron) 15 mg PO HS [facility] Last Admin: 03/19/17 21:33 Dose: 15 mg Pantoprazole Sodium (Protonix Ec Tab) 40 mg PO 0600 [facility] Last Admin: 03/20/17 05:31 Dose: 40 mg Sevelamer HCl (Renagel) 1,600 mg PO TID [facility] Last Admin: 03/19/17 17:28 Dose: 1,600 mg Tamsulosin HCl (Flomax) 0.4 mg PO DAILY [facility] Last Admin: 03/19/17 10:36 Dose: 0.4 mg Tiotropium [place] (Spiriva) 18 mcg IH DAILY [facility] Last Admin: 03/19/17 10:37 Dose: 18 mcg - Labs Labs: 03/20/17 10:00 03/19/17 10:00 - Constitutional Appears: No Acute Distress - Head Exam Head Exam: NORMAL INSPECTION - Eye Exam Eye Exam: Normal appearance. absent: Scleral icterus - ENT Exam ENT Exam: Mucous Membranes Moist - Neck Exam Neck Exam: Normal Inspection - Respiratory Exam Respiratory Exam: Rales, Rhonchi, NORMAL BREATHING PATTERN. absent: Respiratory Distress - Cardiovascular Exam Cardiovascular Exam: +S1, +S2 - GI/Abdominal Exam GI & Abdominal Exam: Soft, Normal Bowel Sounds. absent: Guarding, Tenderness, Rebound - Extremities Exam Extremities Exam: Pedal Edema (mild). absent: Calf Tenderness - Neurological Exam Neurological Exam: Alert, Awake, Oriented x3 - Skin Skin Exam: Dry, Warm Assessment and Plan - Assessment and Plan (Free Text) Assessment: Assessment: Acute on Chronic Pancreatitis, Patient did have 2 MRIs in the past to further evaluate mildly elevated pancreatic enzymes did not find any focal lesion did have mildly dilated pancreatic ducts reportedly previous MR recent MRI did not reveal any significant dilation no focal mass was reported. Elevated BNP, CHF with hepatic congestion ESRD, on hemodialysis Anemia Chronic Constipation PLAN: continue PPI clear liquid on Aspirin on Plavix patient would benefit EUS for further evaluation dilated duct, when patient more optimal, spoke to the patient. Seen and discussed w/ Dr. Gaytan. <Fawn Gaytan V - Last Filed: 03/20/17 23:54> Objective - Vital Signs/Intake and Output Vital Signs (last 24 hours): Temp Pulse Resp BP Pulse Ox 99.5 F 81 20 119/72 95 03/20/17 20:09 03/20/17 22:41 03/20/17 20:09 03/20/17 22:41 03/20/17 17:31 - Medications Medications: Current Medications Albuterol/Ipratropium (Duoneb 3 Mg/0.5 Mg (3 Ml) Ud) 3 ml IH Q6 [facility] Stop: 03/23/17 12:01 Last Admin: 03/20/17 19:49 Dose: 3 ml Aspirin (Ecotrin) 81 mg PO DAILY [facility] Last Admin: 03/20/17 14:26 Dose: 81 mg Carvedilol (Coreg) 25 mg PO Q12H [facility] Last Admin: 03/20/17 22:41 Dose: 25 mg Clonazepam (Klonopin) 0.5 mg PO BID [facility] PRN Reason: Protocol Last Admin: 03/20/17 22:42 Dose: 0.5 mg Clopidogrel Bisulfate (Plavix) 75 mg PO DAILY [facility] Last Admin: 03/20/17 14:26 Dose: 75 mg Fluoxetine HCl (Prozac) 20 mg PO DAILY [facility] Last Admin: 03/20/17 14:27 Dose: 20 mg Guaifenesin/Dextromethorphan (Robitussin Dm) 5 ml PO Q4H PRN PRN Reason: Cough Last Admin: 03/20/17 14:29 Dose: 5 ml Insulin Detemir (Levemir) 40 unit SC HS [facility] Last Admin: 03/20/17 22:42 Dose: 40 unit Insulin Human Lispro (Humalog Med) 0 units SC [facility] PRN Reason: Protocol Last Admin: 03/20/17 22:32 Dose: Not Given Isosorbide Mononitrate (Imdur) 60 mg PO DAILY [facility] Last Admin: 03/20/17 14:26 Dose: 60 mg Lisinopril (Zestril) 20 mg PO DAILY [facility] Last Admin: 03/20/17 14:27 Dose: 20 mg Mirtazapine (Remeron) 15 mg PO HS [facility] Last Admin: 03/20/17 22:42 Dose: 15 mg Pantoprazole Sodium (Protonix Ec Tab) 40 mg PO 0600 [facility] Last Admin: 03/20/17 05:31 Dose: 40 mg Sevelamer HCl (Renagel) 1,600 mg PO TID [facility] Last Admin: 03/20/17 17:57 Dose: 1,600 mg Tamsulosin HCl (Flomax) 0.4 mg PO DAILY [facility] Last Admin: 03/20/17 14:26 Dose: 0.4 mg Tiotropium [place] (Spiriva) 18 mcg IH DAILY [facility] Last Admin: 03/20/17 14:29 Dose: 18 mcg Attending/Attestation - Attestation I have personally seen and examined this patient.: Yes I have fully participated in the care of the patient.: Yes I have reviewed all pertinent clinical information, including history, physical exam and plan: Yes Notes (Text): th
[2017-03-20 11:37] LABS: TROPONIN I 0.13 ng/mL
--- NOTE | 2017-03-20 14:07 | PN ---
DATE: 03/20/2017 SUBJECTIVE: The patient has no complaints of any chest pain or shortness of breath. He says his epigastric pain is better. He is concerned that he may need intervention for his symptoms. PHYSICAL EXAMINATION VITAL SIGNS: Temperature is 98.1, pulse is 71, blood pressure 135/76, respirations 20. HEENT: Anicteric sclerae. Moist mucosa. No oral lesions. NECK: No JVD, adenopathy or thyromegaly. CARDIOVASCULAR: S1, S2 is regular. No murmurs, rubs or gallops. LUNGS: Good bilateral air entry. No wheezes, rales, or rhonchi. ABDOMEN: Bowel sounds are positive; soft, nontender, and nondistended. No hepatosplenomegaly. EXTREMITIES: Lower extremity, trace edema. LABORATORY DATA: Creatinine is 8.2, hemoglobin is 80. ASSESSMENT: 1. Pancreatitis. 2. Coronary artery disease with stent. 3. Arteriovenous fistula. 4. Spinal stenosis. 5. Diabetes type 2. 6. Chronic obstructive pulmonary disease. 7. Hypertension. 8. Secondary hyperparathyroidism. 9. Anemia, chronic. PLAN: The patient is currently comfortable. He has an elevated amylase and lipase level that has improved. His fingerstick are controlled. The patient is on Flomax for his BPH. He is on insulin for his diabetes, Levemir. He is on Plavix for his coronary disease. He is on Renagel for his secondary hyperparathyroidism. He is on lisinopril for his hypertension. He is on liquid diet. Maurice Agarwal MD
[2017-03-20] MEDS: Tiotropium 18 mcg Cap For Inhalation IH SCH (14:29)
[2017-03-20] MEDS: guaiFENesin DM 100 mg-10 mg/5 ml UD PO PRN (14:29)
[2017-03-20] MEDS: Insulin Detemir 100 units/ml Vial (Levemir) SC SCH (22:42)
--- NOTE | 2017-03-21 01:17 | CON ---
DATE: 03/18/2017 REASON FOR CONSULTATION: Abdominal pain radiating to the chest, history of coronary artery disease, cardiac evaluation. BRIEF CLINICAL HISTORY: A 66-year-old male with past medical history significant for coronary artery disease, status post PTCA to LAD on 08/20/2014, staged PTCA of the circumflex, OM1 and OM2 on 08/22/2014; diabetes; hypertension; hyperlipidemia; end-stage renal disease on dialysis at [place] on Monday, Monday, Monday; came in with complaint of abdominal pain; history of pancreatitis in the past; elevated lipase and amylase and complained of radiating to the chest. No chest pain as such, but with radiation to the pain field. No chest pain per se, but pain radiation from the abdomen. Also found to be fluid overloaded. BNP was elevated, so cardiology consult was called. The patient denies any chest pain now. PAST MEDICAL HISTORY: Significant for coronary artery disease, status post PTCA of LAD with drug-eluting stent on 08/20/2014 and staged PTCA of circumflex and OM1 on 08/22/2014; history of last catheterization done on 03/26/2015 as a preop patient evaluation for abnormal stress test. Cardiac catheterization revealed patent stent in LAD, patent stent in circumflex, nondominant RCA, diffuse disease unchanged from previous catheterization, who recently had repeat catheterization done at [facility] and medical treatment recommended. Previous cardiac workup as follows: The patient had MUGA scan done on 09/01/2015 that showed ejection fraction of 57%, significantly improved from previous cath on 12/15/2014. Recent cath at [facility], medical treatment recommended. Repeat echocardiography done on 11/24/2016 shows ejection fraction of 35%, 4-chamber dilatation, severe pulmonary hypertension, trace pericardial effusion. Last stress test on 11/24/2016 showed abnormal myocardial studies, fixed defect, no reversible ischemia, *------* perfusion defect, anterolateral *------* ejection fraction 30%, fixed defect. Last catheterization as mentioned by me on 03/26/2015, medical treatment recommended. Last catheterization at [facility], *------* medical treatment was recommended. REVIEW OF SYSTEMS: As per HPI. PHYSICAL EXAMINATION: As follows: VITAL SIGNS: Temperature afebrile, heart rate 70, and blood pressure 135/76. HEENT: PERRLA. Extraocular muscles are intact. NECK: Supple. No carotid bruits or thyromegaly. CHEST: Clear to auscultation. HEART: S1 and S2. Regular. ABDOMEN: Soft. EXTREMITIES: Clubbing and cyanosis negative. LABORATORY DATA: EKG shows normal sinus, nonspecific ST-T changes noted. Blood workup as follows: WBC *------*, hemoglobin *------*, hematocrit 26.8, and platelet count 153. Chemistry shows sodium 135, potassium 5.1, chloride *------*, anion gap of 21, BUN 105, creatinine 9.6. Total protein 5.7, albumin 2.7, albumin-globulin ratio is 0.9. BNP on admission *------*. Troponin 0.01 and 0.2. Troponin indeterminate because of renal insufficiency, probably nonspecific. IMPRESSION: A 66-year-old male with past medical history significant for diabetes; hypertension; hyperlipidemia; end-stage renal disease, on dialysis 3 years at [place] on Monday, Monday, Monday; history of coronary artery disease, status PTCA of left anterior descending artery on 08/20/2014 with a drug-eluding stent and staged PTCA of the circumflex OM1 on 08/22/2014. Repeat catheterization on 03/26/2015, patent stent. Recent catheterization at [facility] for medical treatment recommended because of the diffuse disease. Patent stent was noted in OM1 LAD. Most recent MUGA scan on 09/01/2015 with ejection fraction of 57%. Most recent echo on 11/24/2016 shows ejection fraction of 30%, 4-chambered dilatation, severe pulmonary hypertension, [id number] tricuspid regurgitation with systolic pressure of 85, moderate mitral regurgitation, history of stress test on *------*, no reversible ischemia. Admitted with abdominal pain, chest pain, most likely acute pancreatitis, borderline. Indeterminate troponin secondary to end-stage renal disease after the myocardial infarction. We will follow up CPK, troponin. Repeat profile, TSH, hemoglobin A1c, *------* treatment for pancreatitis. Discussed with Dr. Agarwal. Discussed with the patient. We will follow with you. We will add the CPK troponin, the current blood drawn this morning around 10:[address] Agarwal for opportunity in taking care of the patient, Jf Amos. If troponin remains negative, we will treat medically. Followup LV function in 36 months, may consider AICD if it remains low. Katharina Tejeda MD
[2017-03-21] MEDS: Albuterol-Ipratrop 3 mg / 0.5 (3 ml) UD IH SCH ×5 (01:45→19:38)
--- NOTE | 2017-03-21 04:14 | CP.PCM.PN ---
Subjective - Date & Time of Evaluation Date of Evaluation: 03/21/17 Time of Evaluation: 04:12 - Subjective Subjective: S:An order for tylenol was requested for leg pain. 650 mg tylenol po was ordered. When went to see patient ,found him to be sleeping. Medical record was reviewed. O: Last Vital Signs 3 Temp 97.8 F 03/21/17 00:01 Pulse 80 03/21/17 00:01 Resp 20 03/21/17 00:01 BP 130/77 03/21/17 00:01 Pulse Ox 96 03/21/17 00:01 Sleeping comfortably. LUNGS:Normal breathing pattern. A:Leg pain. P:Tylenol 650 mg PO x 1. Objective - Vital Signs/Intake and Output Vital Signs (last 24 hours): Temp Pulse Resp BP Pulse Ox 97.8 F 80 20 130/77 96 03/21/17 00:01 03/21/17 00:01 03/21/17 00:01 03/21/17 00:01 03/21/17 00:01 - Medications Medications: Current Medications Albuterol/Ipratropium (Duoneb 3 Mg/0.5 Mg (3 Ml) Ud) 3 ml IH Q6 [facility] Stop: 03/23/17 12:01 Last Admin: 03/21/17 01:45 Dose: 3 ml Aspirin (Ecotrin) 81 mg PO DAILY [facility] Last Admin: 03/20/17 14:26 Dose: 81 mg Carvedilol (Coreg) 25 mg PO Q12H [facility] Last Admin: 03/20/17 22:41 Dose: 25 mg Clonazepam (Klonopin) 0.5 mg PO BID [facility] PRN Reason: Protocol Last Admin: 03/20/17 22:42 Dose: 0.5 mg Clopidogrel Bisulfate (Plavix) 75 mg PO DAILY [facility] Last Admin: 03/20/17 14:26 Dose: 75 mg Fluoxetine HCl (Prozac) 20 mg PO DAILY [facility] Last Admin: 03/20/17 14:27 Dose: 20 mg Guaifenesin/Dextromethorphan (Robitussin Dm) 5 ml PO Q4H PRN PRN Reason: Cough Last Admin: 03/20/17 14:29 Dose: 5 ml Insulin Detemir (Levemir) 40 unit SC [facility] Last Admin: 03/20/17 22:42 Dose: 40 unit Insulin Human Lispro (Humalog Med) 0 units SC ACHS [facility] PRN Reason: Protocol Last Admin: 03/20/17 22:32 Dose: Not Given Isosorbide Mononitrate (Imdur) 60 mg PO DAILY [facility] Last Admin: 03/20/17 14:26 Dose: 60 mg Lisinopril (Zestril) 20 mg PO DAILY [facility] Last Admin: 03/20/17 14:27 Dose: 20 mg Mirtazapine (Remeron) 15 mg PO HS [facility] Last Admin: 03/20/17 22:42 Dose: 15 mg Pantoprazole Sodium (Protonix Ec Tab) 40 mg PO 0600 [facility] Last Admin: 03/20/17 05:31 Dose: 40 mg Sevelamer HCl (Renagel) 1,600 mg PO TID [facility] Last Admin: 03/20/17 17:57 Dose: 1,600 mg Tamsulosin HCl (Flomax) 0.4 mg PO DAILY [facility] Last Admin: 03/20/17 14:26 Dose: 0.4 mg Tiotropium [place] (Spiriva) 18 mcg IH DAILY [facility] Last Admin: 03/20/17 14:29 Dose: 18 mcg
[2017-03-21] MEDS ORDERED: Dextrose 50% SYRINGE Inj (50 ml) IVP ONE (05:30)
[2017-03-21] MEDS: Pantoprazole 40 mg EC Tab PO SCH (06:03)
[2017-03-21] MEDS ORDERED: Insulin Detemir 100 units/ml Vial (Levemir) SC SCH ×2 (06:26→10:40)
--- NOTE | 2017-03-21 07:12 | DS ---
The patient initially was admitted to the hospital because of pancreatitis. The patient had improvement of his symptoms. The patient has been followed by GI. The patient has acute on chronic pancreatitis. The patient did have 2 MRIs in the past, but did not show any focal lesions. The patient may need an EUS. I will speak to Dr. Gaytan. The patient has no complaints of any chest pain. No shortness of breath, no headaches and no dizziness. PHYSICAL EXAMINATION: VITAL SIGNS: Temperature is 97.8, pulse of 80, blood pressure 130/77, respirations 20 and O2 saturation is 96%. ASSESSMENT: 1. Pancreatitis. 2. Coronary artery disease with stenting. 3. Arteriovenous fistula. 4. Spinal stenosis. 5. Diabetes type 2. 6. Chronic obstructive pulmonary disease. 7. Hypertension. 8. Secondary hyperparathyroidism. 9. Anemia, chronic. PLAN: The patient is on aspirin. The patient would like to be on Flomax. The patient is willing to continue with Plavix. He is on insulin for diabetes. He is on Prozac for depression. The patient is going to continue with Renagel for secondary hyperparathyroidism. The patient is on Spiriva for his breathing. He is on a renal diet, he is tolerating. If there are no plans for EUS, the patient will be discharged. The patient was seen by Dr. Tejeda. We will see if the patient will be cleared by Dr. Tejeda for discharge. The patient did have an elevated troponin yesterday. The patient's fingerstick was also low. Now, he was given D50. I will decrease the patient's insulin. CONDITION: Stable. ACTIVITIES: Increase as tolerated. Maurice Agarwal MD
[2017-03-21 07:29] LABS: BASO # 0.02 K/mm3 (0.0-2.0); BASO % 0.3 % (0.0-3.0); EOS # 0.4 (0.0-0.7); EOS % 6.9 % (1.5-5.0); GRAN # 4.33 (1.4-6.5); GRAN % 71.1 % (50.0-68.0); HEMOGLOBIN 8.3 gm/dL (14.0-18.0); LYMPH # 0.8 (1.2-3.4); LYMPH % 12.8 % (22.0-35.0); MEAN CELL VOLUME 90.3 fL (80.0-105.0); MEAN CORPUSCULAR HEMOGLOBIN 28.6 pg (25.0-35.0); MEAN CORPUSCULAR HGB CONC 31.7 g/dl (31.0-37.0); MONO # 0.5 (0.1-0.6); MONO % 8.9 % (1.0-6.0); PLATELET COUNT 161 10^3/uL (120.0-450.0); RED CELL DISTRIBUTION WIDTH 15.8 % (11.5-14.5); WHITE BLOOD COUNT 6.1 10^3/ul (4.5-11.0)
[2017-03-21 07:45] LABS: ALB/GLOB RATIO 0.9 (1.1-1.8); ALBUMIN 2.6 g/dL (3.0-4.8); CALCIUM 8.9 mg/dL (8.4-10.5)
--- NOTE | 2017-03-21 08:00 | CP.PCM.PN ---
Subjective - Date & Time of Evaluation Date of Evaluation: 03/21/17 Time of Evaluation: 07:00 - Subjective Subjective: Pt. seen by Dr. Tejeda yesterday. I was not aware of this change until this AM. Will sign off the case. Cardiac care by Dr. Tejeda. I spoke with Dr. Agarwal. Objective - Vital Signs/Intake and Output Vital Signs (last 24 hours): Temp Pulse Resp BP Pulse Ox 97.8 F 72 20 130/80 96 03/21/17 00:01 03/21/17 07:55 03/21/17 00:01 03/21/17 07:55 03/21/17 00:01 - Medications Medications: Current Medications Albuterol/Ipratropium (Duoneb 3 Mg/0.5 Mg (3 Ml) Ud) 3 ml IH Q6 [facility] Stop: 03/23/17 12:01 Last Admin: 03/21/17 07:53 Dose: 3 ml Aspirin (Ecotrin) 81 mg PO DAILY [facility] Last Admin: 03/20/17 14:26 Dose: 81 mg Carvedilol (Coreg) 25 mg PO Q12H [facility] Last Admin: 03/21/17 07:55 Dose: 25 mg Clonazepam (Klonopin) 0.5 mg PO BID [facility] PRN Reason: Protocol Last Admin: 03/20/17 22:42 Dose: 0.5 mg Clopidogrel Bisulfate (Plavix) 75 mg PO DAILY [facility] Last Admin: 03/20/17 14:26 Dose: 75 mg Fluoxetine HCl (Prozac) 20 mg PO DAILY [facility] Last Admin: 03/20/17 14:27 Dose: 20 mg Guaifenesin/Dextromethorphan (Robitussin Dm) 5 ml PO Q4H PRN PRN Reason: Cough Last Admin: 03/20/17 14:29 Dose: 5 ml Insulin Detemir (Levemir) 30 unit SC HS [facility] Insulin Human Lispro (Humalog Med) 0 units SC ACHS [facility] PRN Reason: Protocol Last Admin: 03/20/17 22:32 Dose: Not Given Isosorbide Mononitrate (Imdur) 60 mg PO DAILY [facility] Last Admin: 03/20/17 14:26 Dose: 60 mg Lisinopril (Zestril) 20 mg PO DAILY [facility] Last Admin: 03/20/17 14:27 Dose: 20 mg Mirtazapine (Remeron) 15 mg PO HS [facility] Last Admin: 03/20/17 22:42 Dose: 15 mg Pantoprazole Sodium (Protonix Ec Tab) 40 mg PO 0600 [facility] Last Admin: 03/21/17 06:03 Dose: 40 mg Sevelamer HCl (Renagel) 1,600 mg PO TID [facility] Last Admin: 03/20/17 17:57 Dose: 1,600 mg Tamsulosin HCl (Flomax) 0.4 mg PO DAILY [facility] Last Admin: 03/20/17 14:26 Dose: 0.4 mg Tiotropium [place] (Spiriva) 18 mcg IH DAILY [facility] Last Admin: 03/20/17 14:29 Dose: 18 mcg - Labs Labs: 03/21/17 07:00 03/21/17 07:00
[2017-03-21] MEDS: Insulin Lispro (humaLOG) MEDIUM Coverage SC SCH ×4 (08:01→21:21)
[2017-03-21 08:35] LABS: TROPONIN I 0.14 ng/mL
[2017-03-21 09:25] LABS: INR 1.22 (0.93-1.08); PARTIAL THROMBOPLASTIN TIME 32.9 Seconds (23.7-30.8); PROTHROMBIN TIME 13.2 Seconds (9.9-11.8)
--- NOTE | 2017-03-21 09:58 | CP.PCM.PN ---
<Inna Palafox - Last Filed: 03/21/17 09:57> Subjective - Date & Time of Evaluation Date of Evaluation: 03/21/17 Time of Evaluation: 08:05 - Subjective Subjective: S&E at bedside this am, chart reviewed. Patient hypoglycemic this am, got D50 IVP, he feels weak right now, no acute distress, no SOB, CP, N/V or abdominal pain. Objective - Vital Signs/Intake and Output Vital Signs (last 24 hours): Temp Pulse Resp BP Pulse Ox 98.1 F 72 20 130/80 96 03/21/17 06:00 03/21/17 07:55 03/21/17 06:00 03/21/17 07:55 03/21/17 06:00 - Medications Medications: Current Medications Albuterol/Ipratropium (Duoneb 3 Mg/0.5 Mg (3 Ml) Ud) 3 ml IH Q6 [facility] Stop: 03/23/17 12:01 Last Admin: 03/21/17 07:53 Dose: 3 ml Aspirin (Ecotrin) 81 mg PO DAILY [facility] Last Admin: 03/20/17 14:26 Dose: 81 mg Carvedilol (Coreg) 25 mg PO Q12H [facility] Last Admin: 03/21/17 07:55 Dose: 25 mg Clonazepam (Klonopin) 0.5 mg PO BID [facility] PRN Reason: Protocol Last Admin: 03/20/17 22:42 Dose: 0.5 mg Clopidogrel Bisulfate (Plavix) 75 mg PO DAILY [facility] Last Admin: 03/20/17 14:26 Dose: 75 mg Fluoxetine HCl (Prozac) 20 mg PO DAILY [facility] Last Admin: 03/20/17 14:27 Dose: 20 mg Guaifenesin/Dextromethorphan (Robitussin Dm) 5 ml PO Q4H PRN PRN Reason: Cough Last Admin: 03/20/17 14:29 Dose: 5 ml Insulin Detemir (Levemir) 30 unit SC HS [facility] Insulin Human Lispro (Humalog Med) 0 units SC ACHS [facility] PRN Reason: Protocol Last Admin: 03/21/17 08:01 Dose: Not Given Isosorbide Mononitrate (Imdur) 60 mg PO DAILY [facility] Last Admin: 03/20/17 14:26 Dose: 60 mg Lisinopril (Zestril) 20 mg PO DAILY [facility] Last Admin: 03/20/17 14:27 Dose: 20 mg Mirtazapine (Remeron) 15 mg PO HS [facility] Last Admin: 03/20/17 22:42 Dose: 15 mg Pantoprazole Sodium (Protonix Ec Tab) 40 mg PO 0600 [facility] Last Admin: 03/21/17 06:03 Dose: 40 mg Sevelamer HCl (Renagel) 1,600 mg PO TID [facility] Last Admin: 03/20/17 17:57 Dose: 1,600 mg Tamsulosin HCl (Flomax) 0.4 mg PO DAILY [facility] Last Admin: 03/20/17 14:26 Dose: 0.4 mg Tiotropium [place] (Spiriva) 18 mcg IH DAILY [facility] Last Admin: 03/20/17 14:29 Dose: 18 mcg - Labs Labs: 03/21/17 07:00 03/21/17 07:00 PT 13.2 Seconds (9.9-11.8) H 03/21/17 08:55 INR 1.22 (0.93-1.08) H 03/21/17 08:55 APTT 32.9 Seconds (23.7-30.8) H 03/21/17 08:55 - Constitutional Appears: No Acute Distress - Head Exam Head Exam: NORMAL INSPECTION - Eye Exam Eye Exam: Normal appearance. absent: Scleral icterus - ENT Exam ENT Exam: Mucous Membranes Moist - Neck Exam Neck Exam: Normal Inspection - Respiratory Exam Respiratory Exam: Rales, NORMAL BREATHING PATTERN. absent: Respiratory Distress - Cardiovascular Exam Cardiovascular Exam: +S1, +S2 - GI/Abdominal Exam GI & Abdominal Exam: Soft, Normal Bowel Sounds. absent: Guarding, Tenderness, Organomegaly, Rebound - Extremities Exam Extremities Exam: Normal Capillary Refill. absent: Calf Tenderness, Pedal Edema - Neurological Exam Neurological Exam: Alert, Awake, Oriented x3 - Skin Skin Exam: Dry, Warm Assessment and Plan - Assessment and Plan (Free Text) Assessment: ASSESSMENT: Acute on Chronic Pancreatitis, Patient did have 2 MRIs in the past to further evaluate mildly elevated pancreatic enzymes did not find any focal lesion did have mildly dilated pancreatic ducts reportedly previous MR recent MRI did not reveal any significant dilation no focal mass was reported. Elevated BNP, CHF with hepatic congestion ESRD, on hemodialysis Anemia Chronic Constipation PLAN: continue PPI clear liquid, advance as tolerated on Aspirin on Imdur/Coreg on Plavix patient would benefit EUS for further evaluation dilated duct, when patient more optimal cardiac FU Seen and discussed w/ Dr. Gaytan. <Fawn Gaytan V - Last Filed: 03/21/17 23:50> Objective - Vital Signs/Intake and Output Vital Signs (last 24 hours): Temp Pulse Resp BP Pulse Ox 98 F 75 21 174/108 H 97 03/21/17 16:00 03/21/17 20:37 03/21/17 16:00 03/21/17 20:37 03/21/17 16:00 Intake and Output: 03/21/17 03/22/17 18:59 06:59 Intake Total 360 Balance 360 - Medications Medications: Current Medications Albuterol/Ipratropium (Duoneb 3 Mg/0.5 Mg (3 Ml) Ud) 3 ml IH Q6 [facility] Stop: 03/23/17 12:01 Last Admin: 03/21/17 19:38 Dose: 3 ml Aspirin (Ecotrin) 81 mg PO DAILY [facility] Last Admin: 03/21/17 10:09 Dose: 81 mg Carvedilol (Coreg) 25 mg PO Q12H [facility] Last Admin: 03/21/17 20:37 Dose: 25 mg Clonazepam (Klonopin) 0.5 mg PO BID [facility] PRN Reason: Protocol Last Admin: 03/21/17 17:38 Dose: 0.5 mg Clopidogrel Bisulfate (Plavix) 75 mg PO DAILY [facility] Last Admin: 03/21/17 10:09 Dose: 75 mg Fluoxetine HCl (Prozac) 20 mg PO DAILY [facility] Last Admin: 03/21/17 10:10 Dose: 20 mg Guaifenesin/Dextromethorphan (Robitussin Dm) 5 ml PO Q4H PRN PRN Reason: Cough Last Admin: 03/21/17 21:22 Dose: 5 ml Insulin Detemir (Levemir) 30 unit SC HS [facility] Insulin Human Lispro (Humalog Med) 0 units SC ACHS [facility] PRN Reason: Protocol Last Admin: 03/21/17 21:21 Dose: Not Given Isosorbide Mononitrate (Imdur) 60 mg PO DAILY [facility] Last Admin: 03/21/17 10:09 Dose: 60 mg Lisinopril (Zestril) 20 mg PO DAILY [facility] Last Admin: 03/21/17 10:10 Dose: 20 mg Mirtazapine (Remeron) 15 mg PO HS [facility] Last Admin: 03/21/17 21:22 Dose: 15 mg Pantoprazole Sodium (Protonix Ec Tab) 40 mg PO 0600 [facility] Last Admin: 03/21/17 06:03 Dose: 40 mg Sevelamer HCl (Renagel) 1,600 mg PO TID [facility] Last Admin: 03/21/17 17:38 Dose: 1,600 mg Tamsulosin HCl (Flomax) 0.4 mg PO DAILY [facility] Last Admin: 03/21/17 10:09 Dose: 0.4 mg Tiotropium [place] (Spiriva) 18 mcg IH DAILY [facility] Last Admin: 03/21/17 10:08 Dose: 18 mcg - Labs Labs: 03/21/17 07:00 03/21/17 07:00 PT 13.2 Seconds (9.9-11.8) H 03/21/17 08:55 INR 1.22 (0.93-1.08) H 03/21/17 08:55 APTT 32.9 Seconds (23.7-30.8) H 03/21/17 08:55 Attending/Attestation - Attestation I have personally seen and examined this patient.: Yes I have fully participated in the care of the patient.: Yes I have reviewed all pertinent clinical information, including history, physical exam and plan: Yes Notes (Text): th
[2017-03-21] MEDS: Tiotropium 18 mcg Cap For Inhalation IH SCH (10:08)
--- NOTE | 2017-03-21 13:08 | PN ---
DATE: 03/21/2017 REASON FOR CONSULTATION: Abdominal pain, radiating to the chest, history of coronary artery disease, cardiac evaluation, borderline positive troponin. The patient denies any chest pain; complains still abdominal pain. OBJECTIVE: GENERAL: The patient is lying flat, not in apparent distress. VITAL SIGNS: Temperature afebrile, heart rate 78, blood pressure 130/80. HEENT: PERRLA. Extraocular muscles are intact. NECK: Supple. No carotid bruit, no thyromegaly. CHEST: Clear to auscultation. HEART: S1 and S2, regular. ABDOMEN: Soft. EXTREMITIES: Clubbing and cyanosis negative. LABORATORY DATA: Blood workup as follows; WBC 6.1, hemoglobin 8.3, hematocrit 26.2, and platelet count 161. Chemistry shows sodium 137, potassium 3.0, chloride 90, carbon dioxide 27, anion gap of 16, BUN 57, creatinine 6. Troponin is 0.14, yesterday troponin was 0.13 and before 0.12 and even 0.10. IMPRESSION: A 66-year-old male with past medical history significant for coronary artery disease, status post drug-eluting stent on 08/20/2014 in LAD and staged PTCA of circumflex OM 1 on 08/22/2014. Then, the patient had 3 times cardiac catheterization. Cardiac catheterization on 03/26/2015 as preop evaluation for AV fistula and abnormal stress test that revealed patent stent in circumflex, nondominant RCA. Then, the patient had repeat catheterization over at [facility], less than a year ago, medical treatment recommended. Then most recently the patient had echocardiography done on 01/14/2017, biatrial enlargement, severe LV dysfunction, moderate MR, moderate TR, and most recently stress test on 11/24/2016, abnormal stress test with fixed defect, no no reversible ischemia, worsening of LV function, ejection fraction of 30%. The stress test was done on . Prior to that the patient had echocardiography on 11/24/2016 and that shows 4 chamber ____ ejection fraction of 35%, moderate TR, RV pressure 85, severe pulmonary hypertension. The patient at this time admitted with abdominal pain radiating to the chest. Troponin 0.12, 0.10, 0.12, 0.4 with indeterminate secondary to renal insufficiency. The patient has end-stage disease, on dialysis. After this stent, two prior catheterizations negative and stress test with fixed defect, , so we will not proceed for further catheterization. The patient is asymptomatic and received medical treatment. We will discuss with Dr. Negro. Continue Carvedilol. Continue aspirin. Continue clopidogrel. Continue lisinopril. We will discontinue telemetry. Thank you Dr. Negro for providing the opportunity in taking care of the patient. Katharina Tejeda MD
[2017-03-21] MEDS: guaiFENesin DM 100 mg-10 mg/5 ml UD PO PRN (21:22)
[2017-03-22] MEDS: Albuterol-Ipratrop 3 mg / 0.5 (3 ml) UD IH SCH ×3 (00:05→13:56)
[2017-03-22] MEDS: Pantoprazole 40 mg EC Tab PO SCH (06:11)
[2017-03-22] MEDS: Insulin Lispro (humaLOG) MEDIUM Coverage SC SCH ×2 (07:51→13:46)
[2017-03-22 08:38] VITALS: RESP 20; TEMP 99.1; O2SAT 99
--- NOTE | 2017-03-22 09:29 | CP.PCM.PN ---
Subjective - Date & Time of Evaluation Date of Evaluation: 03/22/17 Time of Evaluation: 09:25 - Subjective Subjective: S&E at bedside, chart reviewed. Sitting up in bed, eating breakfast and tolerating, feel better this am. No BM x 4 days, no N/V or abdominal pain. Deneis SOB or CP. Objective - Vital Signs/Intake and Output Vital Signs (last 24 hours): Temp Pulse Resp BP Pulse Ox 99.1 F 74 20 140/90 99 03/22/17 08:37 03/22/17 08:37 03/22/17 08:37 03/22/17 08:37 03/22/17 08:37 Intake and Output: 03/22/17 03/22/17 06:59 18:59 Intake Total 360 240 Balance 360 240 - Medications Medications: Current Medications Albuterol/Ipratropium (Duoneb 3 Mg/0.5 Mg (3 Ml) Ud) 3 ml IH Q6 [facility] Stop: 03/23/17 12:01 Last Admin: 03/22/17 07:57 Dose: 3 ml Aspirin (Ecotrin) 81 mg PO DAILY [facility] Last Admin: 03/21/17 10:09 Dose: 81 mg Carvedilol (Coreg) 25 mg PO Q12H [facility] Last Admin: 03/21/17 20:37 Dose: 25 mg Clonazepam (Klonopin) 0.5 mg PO BID [facility] PRN Reason: Protocol Last Admin: 03/21/17 17:38 Dose: 0.5 mg Clopidogrel Bisulfate (Plavix) 75 mg PO DAILY [facility] Last Admin: 03/21/17 10:09 Dose: 75 mg Fluoxetine HCl (Prozac) 20 mg PO DAILY [facility] Last Admin: 03/21/17 10:10 Dose: 20 mg Guaifenesin/Dextromethorphan (Robitussin Dm) 5 ml PO Q4H PRN PRN Reason: Cough Last Admin: 03/21/17 21:22 Dose: 5 ml Insulin Detemir (Levemir) 30 unit SC HS [facility] Last Admin: 03/22/17 00:01 Dose: Not Given Insulin Human Lispro (Humalog Med) 0 units SC ACHS [facility] PRN Reason: Protocol Last Admin: 03/22/17 07:51 Dose: Not Given Isosorbide Mononitrate (Imdur) 60 mg PO DAILY [facility] Last Admin: 03/21/17 10:09 Dose: 60 mg Lisinopril (Zestril) 20 mg PO DAILY [facility] Last Admin: 03/21/17 10:10 Dose: 20 mg Mirtazapine (Remeron) 15 mg PO HS [facility] Last Admin: 03/21/17 21:22 Dose: 15 mg Pantoprazole Sodium (Protonix Ec Tab) 40 mg PO 0600 [facility] Last Admin: 03/22/17 06:11 Dose: 40 mg Sevelamer HCl (Renagel) 1,600 mg PO TID [facility] Last Admin: 03/21/17 17:38 Dose: 1,600 mg Tamsulosin HCl (Flomax) 0.4 mg PO DAILY [facility] Last Admin: 03/21/17 10:09 Dose: 0.4 mg Tiotropium Ferris (Spiriva) 18 mcg IH DAILY [facility] Last Admin: 03/21/17 10:08 Dose: 18 mcg - Labs Labs: 03/21/17 07:00 03/21/17 07:00 PT 13.2 Seconds (9.9-11.8) H 03/21/17 08:55 INR 1.22 (0.93-1.08) H 03/21/17 08:55 APTT 32.9 Seconds (23.7-30.8) H 03/21/17 08:55 - Constitutional Appears: No Acute Distress - Head Exam Head Exam: NORMOCEPHALIC - Eye Exam Eye Exam: Normal appearance. absent: Scleral icterus - ENT Exam ENT Exam: Mucous Membranes Moist - Neck Exam Neck Exam: Normal Inspection - Respiratory Exam Respiratory Exam: Rales (less, improved), NORMAL BREATHING PATTERN. absent: Respiratory Distress - GI/Abdominal Exam GI & Abdominal Exam: Soft, Normal Bowel Sounds. absent: Guarding, Tenderness, Organomegaly, Rebound - Extremities Exam Extremities Exam: Normal Capillary Refill. absent: Calf Tenderness, Pedal Edema - Neurological Exam Neurological Exam: Alert, Awake, Oriented x3 Assessment and Plan - Assessment and Plan (Free Text) Assessment: ASSESSMENT: Acute on Chronic Pancreatitis, Patient did have 2 MRIs in the past to further evaluate mildly elevated pancreatic enzymes did not find any focal lesion did have mildly dilated pancreatic ducts reportedly previous MR recent MRI did not reveal any significant dilation no focal mass was reported. Elevated BNP, CHF with hepatic congestion ESRD, on hemodialysis Anemia Chronic Constipation PLAN: continue PPI on heart healthy start Miralax daily, hold stools >2/day on Aspirin on Imdur/Coreg on Plavix patient would benefit from elective EUS for further evaluation dilated duct, when patient more optimal cardiac FU Seen and discussed w/ Dr. Gaytan.
[2017-03-22] MEDS ORDERED: POLYETHYLENE GLYCOL 3350 17 GM/Dose PACKET PO SCH (10:00)
[2017-03-22 11:26] LABS: HEMOGLOBIN 8.9 gm/dL (14.0-18.0); MEAN CORPUSCULAR HEMOGLOBIN 28.9 pg (25.0-35.0); MEAN CORPUSCULAR HGB CONC 32.5 g/dl (31.0-37.0); MEAN PLATELET VOLUME 11.5 fl (7.0-11.0); RBC 3.08 10^6/uL (3.5-6.1); RED CELL DISTRIBUTION WIDTH 15.5 % (11.5-14.5); WHITE BLOOD COUNT 5.6 10^3/ul (4.5-11.0)
[2017-03-22 11:34] LABS: ALB/GLOB RATIO 0.9 (1.1-1.8); ALBUMIN 2.7 g/dL (3.0-4.8); CALCIUM 9.4 mg/dL (8.4-10.5)
[2017-03-22] MEDS ORDERED: Darbepoetin Alfa 60 mcg/ml Inj IVP ONE (11:39)
[2017-03-22] MEDS: Tiotropium 18 mcg Cap For Inhalation IH SCH (14:09)
[2017-03-22 15:18] VITALS: BP 114/76; PULSE 81
--- NOTE | 2017-03-22 17:30 | PN ---
DATE: 03/22/2017 REASON FOR CONSULTATION: Followup abdominal pain, chest pain, cardiac evaluation, status post PTCA. SUBJECTIVE: The patient denies any chest pain, requesting clearance for renal transplant. PHYSICAL EXAMINATION: As follows: GENERAL: The patient is sitting in the bed having the breakfast, not in apparent distress. VITAL SIGNS: Temperature afebrile, heart rate 74, blood pressure 140/90. HEENT: PERRLA. Extraocular muscles intact. NECK: Supple. No carotid bruit. No thyromegaly. CHEST: Clear to auscultation. HEART: S1 and S2 regular. ABDOMEN: Soft. EXTREMITIES: Clubbing and cyanosis negative. LABORATORY DATA: Blood workup as follows: WBC 5.3, hemoglobin 8.9, hematocrit 27.4, and platelet count 169. Chemistry shows sodium 130, potassium 5, chloride 96, carbon dioxide 24, anion gap of 17, BUN 75, creatinine 7.6. IMPRESSION: A 66-year-old male with past medical history significant for coronary artery disease, status post percutaneous transluminal coronary angioplasty of left anterior descending drug-eluting stent in 07/2014 and staged percutaneous transluminal coronary angioplasty of circumflex, OM1 on 08/22/2014. Then, the patient had 3 cardiac catheterizations. On 03/26/2015, preop evaluation for atriovenous fistula and abnormal stress test that revealed patent stent nondominant right coronary artery. The patient had repeat cardiac catheterization at [facility], less than a year ago, medical treatment recommended. Recent stress test on 11/24/2016 fixed defect, no reversible ischemia. The patient admitted with abdominal pain. So far, troponin negative, borderline 0.12 secondary to end-stage renal disease. Last stress test on 11/24/2016 was fixed defect, ejection fraction 30%. Last echo on 11/24/2016 shows 4-chamber dilatation, ejection fraction 35%, moderate tricuspid regurgitation, right ventricular systolic pressure 85. The patient had received medical treatment, multiple troponin drawn, 0.12, 0.12, 0.10, 0.12, 0.14 renal patient, not significant. Medical treatment recommended. The patient is cleared to go for transplant with medical treatment including dialysis. Discussed with the patient. Discussed with the patient's . We will follow with you. Thank you Dr. Agarwal for providing me the opportunity in taking care of Jf Amos. Katharina Tejeda MD
--- NOTE | 2017-03-23 07:59 | DS ---
DATE: 03/22/2017 SUBJECTIVE: The patient is comfortable. He is able to tolerate his diet. He has no headache or dizziness and no nausea. PHYSICAL EXAMINATION: VITAL SIGNS: Temperature is 99.1 pulse is 74, blood pressure is 140/90, and respirations are 20. NECK: No JVD, adenopathy, or thyromegaly. CARDIOVASCULAR: S1 and S2, regular. No murmurs, rubs or gallop. GENERAL: The patient is lying in bed, flat, comfortable. HEENT: Anicteric sclerae. Moist mucosa. LUNGS: Good bilateral air entry. No wheezes, rales, or rhonchi. ABDOMEN: Bowel sounds are positive. Soft, nontender and nondistended. No hepatosplenomegaly. EXTREMITIES: Lower extremities. No cyanosis. clubbing, or edema. ASSESSMENT: 1. Pancreatitis, resolved. 2. Coronary artery disease with stent. 3. Arteriovenous fistula. 4. Spinal stenosis. 5. Diabetes type 2. 6. Chronic obstructive pulmonary disease. 7. Hypertension. 8. Secondary hyperparathyroidism. 9. Anemia, chronic. PLANT: The patient had hypoglycemia that is improved. We will need to follow up with Dr. Gaytan for possible elective EUS. The patient was advised to decrease his insulin regimen. CONDITION: Stable. ACTIVITIES: Increase as tolerated. Follow up with primary care doctor in one to two weeks. Maurice Agarwal MD
== END 2017-03-22 15:28 | disposition home or self-care (01) | DRG 438 ==
LOC: ED 20:41 → ERH 22:01 → 2RSO 03-19 → OBSVTOIN 03-20 15:37 → 3RSO 03-21 13:07
PROVIDERS: ADMIT Internal Medicine Medical Oncology; ATTEND Internal Medicine Nephrology
PROC: 3E0F7GC Introduction of Other Therapeutic Substance into Respiratory Tract, Via Natural or Artificial Opening (ICD-10-PCS; 2017-03-19)
PROC: 5A1D60Z (ICD-10-PCS; principal; 2017-03-20)
DX: K85.90 Acute pancreatitis without necrosis or infection, unspecified (principal); N18.6 End stage renal disease; I13.2 Hypertensive heart and chronic kidney disease with heart failure and with stage 5 chronic kidney disease, or end stage renal disease; E11.22 Type 2 diabetes mellitus with diabetic chronic kidney disease; E11.649 Type 2 diabetes mellitus with hypoglycemia without coma; N25.81 Secondary hyperparathyroidism of renal origin; I27.2 Other secondary pulmonary hypertension; K76.1 Chronic passive congestion of liver; K86.1 Other chronic pancreatitis; Z99.2 Dependence on renal dialysis; I50.9 Heart failure, unspecified; D63.1 Anemia in chronic kidney disease; N40.0 Benign prostatic hyperplasia without lower urinary tract symptoms; J44.9 Chronic obstructive pulmonary disease, unspecified; E78.5 Hyperlipidemia, unspecified; E03.9 Hypothyroidism, unspecified; K29.70 Gastritis, unspecified, without bleeding; I25.10 Atherosclerotic heart disease of native coronary artery without angina pectoris; K59.09 Other constipation; K21.9 Gastro-esophageal reflux disease without esophagitis; M48.00 Spinal stenosis, site unspecified; M79.606 Pain in leg, unspecified; I08.1 Rheumatic disorders of both mitral and tricuspid valves; Z95.5 Presence of coronary angioplasty implant and graft; Z79.02 Long term (current) use of antithrombotics/antiplatelets; Z79.82 Long term (current) use of aspirin; Z79.4 Long term (current) use of insulin; Z87.891 Personal history of nicotine dependence

== ENCOUNTER 2017-07-13 06:40 | Day surgery (SDC) | payer MEDICARE, OTHER ==
[2017-07-11 13:59] VITALS: BMI 19.9
[2017-07-13 07:42] LABS: BASO # 0.05 K/mm3 (0.0-2.0); BASO % 0.8 % (0.0-3.0); EOS % 15.2 % (1.5-5.0); GRAN # 4.31 (1.4-6.5); HEMATOCRIT 39.4 % (42.0-52.0); LYMPH # 0.7 (1.2-3.4); MEAN CORPUSCULAR HEMOGLOBIN 29.6 pg (25.0-35.0); MEAN CORPUSCULAR HGB CONC 30.5 g/dl (31.0-37.0); MEAN PLATELET VOLUME 12.5 fl (7.0-11.0); MONO # 0.6 (0.1-0.6); RED CELL DISTRIBUTION WIDTH 14.3 % (11.5-14.5); WHITE BLOOD COUNT 6.6 10^3/ul (4.5-11.0)
[2017-07-13] MEDS ORDERED: Iodixanol 320 mg/ml 150 ml Bottle IV ONE (07:58)
[2017-07-13] MEDS ORDERED: Iodixanol 320 MG/ML 200 ML BOTTLE IV ONE (07:58)
[2017-07-13] MEDS ORDERED: Lidocaine 2% Inj (20ml) ONE (07:58)
[2017-07-13] MEDS ORDERED: Nitroglycerin 50mg in D5W 50 MG/250 ML BOTTLE IV ONE (07:58)
[2017-07-13] MEDS ORDERED: Heparin 2,000 ML IV ONE (07:59)
[2017-07-13 08:01] LABS: INR 1.15 (0.93-1.08); PARTIAL THROMBOPLASTIN TIME 33.4 Seconds (25.1-36.5)
--- NOTE | 2017-07-13 08:09 | HP ---
REASON FOR ADMISSION: Peripheral angiogram, possible angioplasty, nonhealing ulcer on the right foot, peripheral arterial disease and coronary artery disease. BRIEF CLINICAL HISTORY: This is a 66-year-old male with past medical history significant for coronary artery disease, status post PTCA of LAD on 08/20/2014, stage PTCA of circumflex, OM1 and OM2 on 08/22/2014, diabetes, hypertension, hyperlipidemia and end-stage renal disease on dialysis at [facility] on Monday, Monday and Monday. Recently seen by Dr. Mendez because of nonhealing ulcer on the right side. The patient underwent RODNEY and study was read by Dr. Gonzalez that shows high pressure waveform relatively normal, relatively normal, asymptomatic limited study of calcific vessels, bilateral tibial disease and nonhealing ulcer. 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 PAST MEDICAL HISTORY: Significant for coronary artery disease, status post PTCA of LAD with drug-eluting stent on 08/20/2014 and stage PTCA of the circumflex and OM2 on 08/22/2016. Last catheterization done on 03/26/2015 as a preop evaluation for abnormal stress test. Cardiac catheterization revealed at that time patent stent in LAD, patent stent in circumflex, nondominant RCA diffuse disease unchanged from previous catheterization and then the patient had a repeat catheterization done at [facility] and medical treatment recommended. PREVIOUS CARDIAC WORKUP: As follows: The patient had a MUGA scan done on 09/01/2015 that showed ejection fraction of 57%, significantly improved cardiac function from 12/15/2014. Recent cardiac catheterization at [facility] as medical treatment recommended. Repeat echo on 11/24/2016 that showed ejection fraction of 35%, four-chamber dilatation, severe pulmonary hypertension and trace pericardial effusion. Last stress test on 11/24/2016 shows abnormal myocardial perfusion study, no reversible ischemia, no perfusion abnormality noted. Last cath at [place] on 03/26/2015, medical treatment recommended. As mentioned, last catheterization at [facility], medical treatment recommended. CURRENT MEDICATION: The patient is taking Klonopin 0.5 mg daily, Spiriva, Flomax, Renagel, Protonix, omeprazole, lisinopril, isosorbide nitrate, insulin, clopidogrel 75 mg daily, carvedilol 25 mg daily, aspirin 81 mg daily and nebulizer treatment. ALLERGIES: NO KNOWN DRUG ALLERGIES. REVIEW OF SYSTEMS: As per HPI. PHYSICAL EXAMINATION: As follows: VITAL SIGNS: Temperature afebrile, heart rate 60 and blood pressure 130/80. HEENT: PERRLA intact. NECK: Supple. No carotid bruit or thyromegaly. CHEST: Clear to auscultation. HEART: S1 and S2 regular. ABDOMEN: Soft. EXTREMITIES: Clubbing and cyanosis negative. LABORATORY DATA: Last blood workup completed on 03/16/2017 shows WBC 6.6, hemoglobin 8.9, hematocrit 27.7 and platelet count 166. Chemistry shows on 03/24/2017, as 137 sodium, potassium 3.9, chloride 101, carbon dioxide 25, anion gap of 15, BUN 61, creatinine 6.1. IMPRESSION AND PLAN: End-stage renal disease, diabetes, hypertension, hyperlipidemia, coronary artery disease, status post multiple stents to left anterior descending and circumflex. Last catheterization at [facility], patent stent and severe peripheral artery disease. We will do peripheral angiogram left-sided to go from the right sided and after the angiogram depending upon the findings possible percutaneous transluminal coronary angioplasty of right tibial first. We will follow the blood workup. We will load aspirin and Plavix. Further recommendation after the peripheral angiogram. Thank you Dr. Agarwal for providing us the opportunity in taking care of the patient, Bette. Katharina Tejeda MD cc: MD Dr. Andrea Hernandes.
[2017-07-13 08:18] LABS: CALCIUM 9.7 mg/dL (8.4-10.5); POTASSIUM 4.1 mmol/L (3.6-5.0)
[2017-07-13 08:19] VITALS: O2SAT 94
[2017-07-13] MEDS ORDERED: Midazolam 2 MG/2 ML VIAL ONE (09:05)
[2017-07-13] MEDS ORDERED: Iodixanol 320 MG/ML 100 ML BOTTLE IV ONE (11:00)
[2017-07-13] MEDS ORDERED: Albuterol 0.083% Inhal Sol (2.5 mg/3 mL) UD IH PRN (11:41)
[2017-07-13 15:54] LABS: BASO # 0.06 K/mm3 (0.0-2.0); BASO % 1.3 % (0.0-3.0); EOS # 0.8 (0.0-0.7); EOS % 17.4 % (1.5-5.0); GRAN # 2.34 (1.4-6.5); GRAN % 49.8 % (50.0-68.0); HEMATOCRIT 34.5 % (42.0-52.0); LYMPH % 22.1 % (22.0-35.0); MEAN CELL VOLUME 95.8 fl (80.0-105.0); MEAN CORPUSCULAR HEMOGLOBIN 29.7 pg (25.0-35.0); MEAN PLATELET VOLUME 12.3 fl (7.0-11.0); MONO # 0.4 (0.1-0.6); MONO % 9.4 % (1.0-6.0); RED CELL DISTRIBUTION WIDTH 14.1 % (11.5-14.5); WHITE BLOOD COUNT 4.7 10^3/ul (4.5-11.0)
[2017-07-13 16:08] LABS: POTASSIUM 3.8 mmol/L (3.6-5.0)
[2017-07-13 18:04] VITALS: BP 128/69; PULSE 93; RESP 20; TEMP 98.6
--- NOTE | 2017-07-13 21:50 | CARD ---
APPROVED REPORT EKG Measurement Heart [id number] <Conclusion> Normal sinus rhythm Possible Left atrial enlargement ST & T wave abnormality, consider inferolateral ischemia Abnormal ECG
--- NOTE | 2017-07-14 11:34 | VAS ---
DATE: 07/13/2017 TYPE OF PROCEDURE PERFORMED: Peripheral angiogram and angioplasty. PROCEDURES PERFORMED: 1. Distal abdominal aortogram. 2. Bilateral lower extremity peripheral angiogram with 3-vessels runoff using digital subtraction angiography. 3. Atherectomy with CSI of right superficial femoral artery/popliteal trunk (SFA/popliteal trunk). 4. Angioplasty with drug-coated balloon of distal right SFA/popliteal trunk. REFERRING PHYSICIAN: Dr. Katharina Mendez/Dr. Maurice Agarwal MD OPERATING DOCTOR: Katharina Tejeda MD UMBRELLA CUTTER: Stephen Ash, catheterization laboratory technician. INDICATION FOR THE PROCEDURE: Critical limb ischemia of right lower extremity, nonhealing ulcer of the right toe and heel. RODNEY done on 06/22/2017, limited study due to calcified vessels, bilateral tibial disease. Resting RODNEY was inaccurate because of heavily calcified vessels. BRIEF CLINICAL HISTORY: This is a 66-year-old male with past medical history significant for coronary artery disease status post PTCA of LAD on 08/20/2014, status post PTCA circumflex on OM1, OM2, and circumflex on 08/22/2014, diabetes, hypertension, hyperlipidemia, end-stage renal disease on dialysis at [facility] on Monday, Monday, and Monday. Recently seen by Dr. Mendez because of the nonhealing ulcer of the right side. The patient underwent RODNEY at [facility] and that shows limited study due to calcified vessels. Bilateral tibial disease. Peripheral angiogram and PTCA was recommended. On examination, the patient had a left-sided 2+ femoral/popliteal 1 to 2+, dorsalis pedis and tibial left was 1, whereas right-sided 2+ femoral, 1 to 2+ popliteal, but Doppler posterior tibial. Dorsal pedis not detected by Doppler. PERIPHERAL ANGIOGRAM AND TECHNIQUE: Relative risks and indication of the procedure were explained to the patient. The patient agreed, consent obtained. The patient was put in supine position on the arteriogram table and both right and left groins were prepped, and then left groin was used to get access. Conscious sedation was given. continuously the patient being monitored. The pulse oximetry and hemodynamics continuously being monitored. Access was obtained with the left femoral micropuncture technique using Seldinger technique and 5-Taiwanese sheath was introduced and then 5-Taiwanese Omni Flush catheter was placed in the distal abdominal aortogram just above the renal artery and the selective abdominal aortogram obtained and then bilateral lower extremity runoff using DSA was obtained, and multiple views and orthogonal views were obtained up to the foot. Then, atherectomy CSI used for distal SFA and popliteal trunk, and then drug-coated balloon was used in distal SFA. ATHERECTOMY: CSI, 1.5 romain of atherectomy was used for distal SFA and 3 runs were given at speed of 60, 80, and 120 and then drug-coated balloon, 5 mm in diameter, 120 mm in length used for distal SFA/popliteal trunk. The balloon was inflated for 3 minutes with reduction of stenosis from preprocedure 80% to 90%, postprocedure 0%. Preprocedure BAILEY 2 flow was noted and postprocedure TIMI3 brisk flow was noted. Postprocedure puncture site of the left side long Destination sheath was changed to 6-Taiwanese short and then Mynx was applied. The patient tolerated the procedure well and return to floor in stable condition. Before leaving to floor, ACT was checked and found to be 300 seconds. Plan is to assess the patient with vocational evaluator. If need, we will dialyze today, otherwise dialyze tomorrow. FINDINGS: As follows; diffuse vascular calcification noted in the abdominal aorta with acute (hostile takeoff bifurcation of right common iliac noted). 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 Left common iliac shows irregularity bifurcated external iliac and internal iliac, but no flow of obstructive stenosis noted. External iliac is very torturous with noted hairpin turn and external iliac continues as a common femoral artery and then common femoral brake up into superficial femoral artery and profunda artery. Superficial artery continues in the adductor canal as popliteal trunk, above the popliteal trunk has 70-80% focal stenosis noted. Then, popliteal trunk trifurcated into anterior tibial, posterior tibial, and common peroneal artery with a sluggish, but 3 vessels runoff noted up to the ankle. Right common iliac shows luminal irregularity and a very hostile takeoff. Acute angle and hairpin turn noted. Then common iliac breaks into internal iliac and external iliac. External iliac continues as a common femoral and then common femoral bifurcates into superficial femoral artery and profunda artery. Superficial artery continues and multiple calcified lesion with 80-90% stenoses, noted and continues at the popliteal trunk. The popliteal trunk then trifurcates into anterior tibial, posterior tibial, and common peroneal. Both arteries trifurcation were diffusely diseased, but the 2 vessels runoff noted, but anterior tibial in the distal third is totally occluded and reorganized into the tibial artery. Successful atherectomy with CSI, 1.5 romain was done in distal SFA, common popliteal trunk. Then drug-coated balloon 120 cm in length, 5 mm in diameter was used. After that, final procedure conclusion, the wire was pulled out and final pictures of the DSA, stenosis decreased from 90% to 0. IMPRESSION: Successful atherectomy with CSI of the right distal superficial femoral artery/popliteal trunk was done with 60, 80, and 120 revolution per minute speed, 1.5 romain, followed by drug-coated balloon 120 cm in length and 5 mm diameter applied for 3 minutes. At the end of the procedure, palpable Doppler posterior tibial noted on the right side which was just after preprocedure. BAILEY 3 flow, brisk flow noted. The patient tolerated the procedure well. Puncture site was closed with Mynx. PLAN: To reassess the patient. If the patient continues to have the symptoms on the left side, we can reschedule for PTCA on the left SFA popliteal trunk. Interim, continue baby aspirin, continue Plavix, continue lisinopril, and continue nitrate. Follow up in 1 week. Katharina Tejeda MD cc: MD Katharina Hernandes MD MTDRamin
== END 2017-07-13 19:20 | disposition home or self-care (01) ==
LOC: SDSVAS 06:40 → 2RSO 11:28 → SDSVAS 19:20
PROVIDERS: ATTEND Internal Medicine Cardiovascular Disease
DX: E11.51 Type 2 diabetes mellitus with diabetic peripheral angiopathy without gangrene (principal); E11.22 Type 2 diabetes mellitus with diabetic chronic kidney disease; E11.621 Type 2 diabetes mellitus with foot ulcer; E78.5 Hyperlipidemia, unspecified; I12.0 Hypertensive chronic kidney disease with stage 5 chronic kidney disease or end stage renal disease; I25.10 Atherosclerotic heart disease of native coronary artery without angina pectoris; I27.20 Pulmonary hypertension, unspecified; L97.519 Non-pressure chronic ulcer of other part of right foot with unspecified severity; N18.6 End stage renal disease; T82.858A Stenosis of other vascular prosthetic devices, implants and grafts, initial encounter; Z79.4 Long term (current) use of insulin; Z79.82 Long term (current) use of aspirin; Z95.5 Presence of coronary angioplasty implant and graft; Z99.2 Dependence on renal dialysis
CPT/HCPCS: 36415; 37225; 75710; 80048; 80061; 85025; 85175; 85610; 85730; 86850; 86900; 93005; 99152; 99153; C1725 ×2; C1760 ×2; C1769 ×5; C1874; C1887 ×2; C1894; C2629; J1644 ×2; J2250; J3010; Q9967

== ENCOUNTER 2017-08-10 07:35 | Day surgery (SDC) | payer MEDICARE, OTHER ==
[2017-08-07 08:05] VITALS: BMI 19.6
--- NOTE | 2017-08-10 03:02 | HP ---
REASON FOR ADMISSION: Peripheral angiogram, possible angioplasty of left SFA and popliteal trunk. BRIEF CLINICAL HISTORY: This is a 66-year-old male with past medical history significant for coronary artery disease, status post PTCA of LAD on 08/20/2014 and stage PTCA of circumflex, OM1 and OM2 on 08/22/2014, diabetes, hypertension, hyperlipidemia, and end-stage renal disease on dialysis at [place] on Monday, Monday and Monday. The patient was seen earlier by Dr. Mendez and RODNEY was then found to be significantly decreased. The patient underwent peripheral angiogram on 07/13/2017, significant bilateral popliteal disease noted. The patient underwent PTCA of right superficial femoral trunk with CSI and then followed by drug-coated balloon and today brought for stage PTCA of left SFA, popliteal trunk. The patient denies any chest pain, shortness of breath, or any palpitations. PAST MEDICAL HISTORY: Significant for coronary artery disease, status post PTCA of LAD with a drug-eluting stent 08/20/2014, status post PTCA of circumflex, OM1 on 08/22/2016. Last catheterization 03/26/ as a preop evaluation, abnormal stress test. Cardiac catheterization revealed patent stent in the LAD, patent stent in the circumflex, nondominant RCA, diffusely diseased, unchanged from previous catheterization, then the patient had a repeat another catheterization done at [facility] and medical treatment recommended. PREVIOUS CARDIAC WORKUP: As follows: The patient had a MUGA scan done on 09/01/2015 that shows ejection fraction of 57%, significantly improved cardiac function. Repeat echo on 10/28/2016 shows ejection fraction of 35%, four-chamber dilatation, severe pulmonary hypertension. Last stress test on 11/24/2016 shows abnormal myocardial perfusion study, no reversible ischemia, no perfusion defect. Last cath at [place] on 03/26/2015, medical treatment recommended. After that the patient had another catheterization at [facility], medical treatment recommended. History of most recently peripheral angiogram and atherectomy with CSI of right superficial femoral and popliteal trunk and drug-coated balloon on 07/13/2017. CURRENT MEDICATIONS: The patient is taking Klonopin 0.5 mg daily, Spiriva, Flomax, Renagel, Protonix, omeprazole, lisinopril, and isosorbide nitrate. REVIEW OF SYSTEMS: As per HPI. ALLERGIES: NO KNOWN DRUG ALLERGIES. PHYSICAL EXAMINATION VITAL SIGNS: As follows: Height of the patient is 5 feet 5 inches, weight of the patient is 118 pounds, body mass index of 19.6 kg/m2. Rest of the examination as follows; temperature afebrile, heart rate 80, and blood pressure 128/80. HEENT: PERRLA intact. NECK: Supple. No carotid bruits, JVD or thyromegaly. CHEST: Clear to auscultation. HEART: S1 and S2 regular. ABDOMEN: Soft. EXTREMITIES: Clubbing and cyanosis negative. Popliteal pulses in right dorsalis pedis, and Doppler in the left. LABORATORY DATA: Blood workup: The last hemoglobin in the hospital was 07/13/2017, WBC of 4.7, hemoglobin 10 , hematocrit 34.5, and platelet count 104. Chemistry show sodium 135, potassium 3.8, chloride 96, carbon dioxide 29,gap of 14, BUN 40, and creatinine 6.3. IMPRESSION AND PLAN: Severe peripheral artery disease, status post percutaneous transluminal coronary angioplasty of right femoral popliteal trunk with a drug-coated balloon. Now, the patient admitted for CSI of left femoral popliteal trunk and right femoral. We will do blood work. Further recommendations after the hospital course. We will follow with you. Thank you Dr. Gutierres for providing us the opportunity in taking care of the patient, Bette Rhoades. Katharina Tejeda MD
[2017-08-10 08:19] LABS: BASO # 0.03 K/mm3 (0.0-2.0); BASO % 0.4 % (0.0-3.0); EOS # 0.7 (0.0-0.7); EOS % 9.2 % (1.5-5.0); GRAN # 5.05 (1.4-6.5); GRAN % 69.4 % (50.0-68.0); HEMATOCRIT 33.3 % (42.0-52.0); LYMPH % 14.1 % (22.0-35.0); MEAN CELL VOLUME 96.8 fl (80.0-105.0); MEAN CORPUSCULAR HEMOGLOBIN 29.9 pg (25.0-35.0); MEAN CORPUSCULAR HGB CONC 30.9 g/dl (31.0-37.0); MEAN PLATELET VOLUME 13.1 fl (7.0-11.0); MONO # 0.5 (0.1-0.6); MONO % 6.9 % (1.0-6.0); RED CELL DISTRIBUTION WIDTH 14.5 % (11.5-14.5); WHITE BLOOD COUNT 7.3 10^3/ul (4.5-11.0)
[2017-08-10 08:29] LABS: CALCIUM 9.8 mg/dL (8.4-10.5); POTASSIUM 4.2 mmol/L (3.6-5.0)
[2017-08-10 08:53] LABS: INR 1.28 (0.93-1.08); PARTIAL THROMBOPLASTIN TIME 32.4 Seconds (25.1-36.5)
[2017-08-10] MEDS ORDERED: Lidocaine 2% Inj (20ml) ONE (09:06)
[2017-08-10] MEDS ORDERED: Midazolam 2 MG/2 ML VIAL ONE ×2 (09:06→10:27)
[2017-08-10] MEDS ORDERED: Iodixanol 320 MG/ML 100 ML BOTTLE IV ONE (09:07)
[2017-08-10] MEDS ORDERED: HEPARIN SODIUM/NS 1,000 ML IV ONE (09:07)
[2017-08-10] MEDS ORDERED: Iodixanol 320 MG/ML 200 ML BOTTLE IV ONE (09:07)
[2017-08-10] MEDS ORDERED: Nitroglycerin 50mg in D5W 50 MG/250 ML BOTTLE IV ONE (09:07)
[2017-08-10] MEDS ORDERED: Iohexol 350mgl/ml 50 ML ONE (09:49)
[2017-08-10] MEDS ORDERED: Iodixanol 320 mg/ml 150 ml Bottle IV ONE (09:53)
[2017-08-10] MEDS ORDERED: Oxycodone/Acetaminophen 5/325 mg Tab PO PRN (11:36)
[2017-08-10] MEDS ORDERED: Oxycodone/Acetaminophen 5/325 mg Tab ONE (11:47)
[2017-08-10 12:32] VITALS: RESP 18; TEMP 97.3
[2017-08-10] MEDS ORDERED: Iohexol 350 MG/100 ML VIAL ONE (14:24)
[2017-08-10 14:50] VITALS: O2SAT 91
[2017-08-10 15:09] VITALS: BP 100/61; PULSE 74
--- NOTE | 2017-08-11 15:29 | VAS ---
DATE: 08/10/2017 Vascular procedure performed of peripheral angiogram and angioplasty of left femoral popliteal trunk. PROCEDURE PERFORMED: 1. Distal abdominal aortogram. 2. Bilateral lower extremity peripheral angiogram with 3-vessels runoff using digital subtraction angiography. 3. Atherectomy with CSI of left superficial femoral artery/popliteal trunk (SFA/popliteal trunk). 4. Angioplasty with a drug-coated balloon of left superficial femoral artery/popliteal trunk. REFERRING PHYSICIAN: Dr. Katharina Mendez/Dr. Maurice Agarwal. OPERATING DOCTOR: Katharina Tejeda MD. DESIZING MACHINE OPERATOR HEAD END: fresh foods technician, Mejia Rolle. SCHEDULING: Semi-elective. INDICATION FOR THE PROCEDURE: Critical leg ischemia, claudication on left lower extremity, history of PTCA with drug-coated balloon 4 weeks ago on the right SFA, abnormal RODNEY, claudication. BRIEF CLINICAL HISTORY: This is a 67-year-old male with a past medical history significant for coronary artery disease status post PTCA of LAD and staged circumflex; end-stage renal disease, on dialysis; diabetes, hypertension, hyperlipidemia, who was recently seen by Dr. Mendez. Patient had an RODNEY, was found to be significantly decreased and read as bilateral tibial disease and SFA disease. On examination, the patient had left dorsalis pedis Doppler, the right was very strong Doppler signal. PERIPHERAL ANGIOGRAM AND TECHNIQUE: Relative risks and indication of the procedure were explained to the patient. The patient agreed, consent obtained. The patient was put in supine position on the arteriogram table and both right and left groins were prepped, and then the access obtained from the right groin. Conscious sedation was given. Continuously the patient is being monitored hemodynamically and periodically conscious sedation was given, and hemodynamics monitored as well as oxygen saturation. Access was obtained from the right femoral micropuncture using Seldinger technique. 5-Italian sheath was introduced, and then 5-Italian Omni Flush catheter was placed in the distal abdominal aortogram below the renal artery and then selective abdominal aortogram was obtained, and then bilateral lower extremity runoff using DSA was obtained, and multiple views and orthogonal views were obtained up to the foot. Then, atherectomy with CSI of distal left SFA popliteal trunk was done, and then drug-coated balloon 5 mm in diameter and 14 mm in length was applied to the distal left SFA popliteal trunk. Postprocedure, left dorsalis pedis was palpable, 1+. The patient tolerated the procedure well. ATHERECTOMY: CSI 1.5 romain atherectomy was used for distal SFA and 3 runs were given at speed of 60, 80, and 120 revolution per minute and then drug-coated balloon 5 mm in diameter and 14 mm in length used for distal SFA popliteal trunk. The balloon inflated for 3 minutes slowly with the reduction of stenosis. Postprocedure to 0% from pre-procedure 80% to 90%. BAILEY 2 flow was before, and then the BAILEY 3 brisk flow was noted. Postprocedure, the long destination sheath was exchanged with 6-Italian short and then Mynx was applied. The patient tolerated the procedure well and returned to the floor in stable condition. Before leaving the floor, the ACT was checked and found to be 220 seconds. Plan is to lay back of the patient for 4 to 6 hours, ambulate after 4 to 6 hours, and if remained stable, we will discharge home and dialysis tomorrow. Total 150 mL of contrast were used. FINDINGS: As follows, diffuse vascular calcification noted in the abdominal aorta with acute (hostile) takeoff of bifurcation of right common iliac noted. Calcification noted in bifurcation and a little bit aneurysmal. 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 Left common iliac shows irregularity, bifurcated into external iliac and then internal iliac, but no flow obstructive stenosis noted. External iliac is very torturous with hairpin turn noted. External iliac continues as a common femoral artery and then common femoral artery breaks into superficial femoral artery and profunda artery. Superficial femoral artery continues in the adductor canal. Above the popliteal trunk, 80% to 90% focal stenosis noted. Then popliteal trunk trifurcated into anterior tibial, posterior tibial, and peroneal; 3 vessels runoff noted, but anterior tibial in the middle very diffusely diseased and reconstitute above the ankle. Right common iliac shows luminal irregularity, very hostile takeoff, acute angle with hairpin turn noted. Then common iliac breaks off into internal iliac and external iliac. External iliac continues as a common femoral and then common femoral bifurcates into superficial femoral artery (SFA) and profunda. Superficial artery continues and the previous PTCA site was noted widely patent. Previously stenosed 80% to 90%, which was dealt with CSI atherectomy, and after that drug-coated balloon was done on 07/13/2017, 4 weeks ago, is widely patent. Then popliteal trunk continues and trifurcates into anterior tibial, posterior tibial and peroneal artery. Anterior tibial is diffusely diseased in the middle of the leg in total and then reconstitute above the ankle, where the 2 distal vessel runoff noted. Successful atherectomy with CSI using 1.5 romain using 3 speeds, 60, 80 and 90, and then after the drug-coated balloon, 5 mm in diameter and 14 mm in length was used. Final procedure, the wire was taken out and final picture was taken, stenosis decreased from 80% to 90% to 0, and palpable distal pulse on the left dorsalis pedis noted. The puncture site was closed with Mynx as mentioned. IMPRESSION: Successful atherectomy with CSI of left distal superficial femoral artery/popliteal trunk was done with 60, 80, and 120 revolution per minute using 1.5 romain CSI, followed by drug-coated balloon, 5 mm in diameter and 14 mm in length, was inflated for 3 minutes, and then wire, balloon, everything were taken out. All final pictures were taken, two orthogonal views, and Mynx applied on the right femoral artery after the sheath was exchanged to regular sheath. Activated clotting time found to be 220 seconds and palpable distal pulse in the left dorsalis pedis noted. PLAN: Monitor periodically with RODNEY in 2 months and then 6 months, and every year depending as the clinical situation warranted. Continue aspirin and Plavix for now. The patient has right toe infection, so Ancef was given 1 g IV, followed by Keflex was started, advised the patient to see rug scratcher, may need the right toe big toe nail needs to come off, and also I advised the patient, the patient should be very careful about infection anywhere in the body because the patient is severely immunocompromising and is a dialysis patient. Also take care of the feet as you take care of the face. Katharina Tejeda MD cc: MD Maurice Alexis MD [facility]ITAL[facility]
== END 2017-08-10 17:32 | disposition home or self-care (01) ==
LOC: SDSVAS 07:35
PROVIDERS: ATTEND Internal Medicine Cardiovascular Disease
DX: E11.51 Type 2 diabetes mellitus with diabetic peripheral angiopathy without gangrene (principal); E11.22 Type 2 diabetes mellitus with diabetic chronic kidney disease; E78.5 Hyperlipidemia, unspecified; I12.0 Hypertensive chronic kidney disease with stage 5 chronic kidney disease or end stage renal disease; I25.10 Atherosclerotic heart disease of native coronary artery without angina pectoris; N18.6 End stage renal disease; I27.20 Pulmonary hypertension, unspecified; Z79.82 Long term (current) use of aspirin; Z79.02 Long term (current) use of antithrombotics/antiplatelets; Z95.5 Presence of coronary angioplasty implant and graft; Z99.2 Dependence on renal dialysis
CPT/HCPCS: 36415; 37225; 75716; 80048; 85025; 85175; 85610; 85730; 86850; 86900; 99152; 99153; C1713; C1725 ×2; C1760 ×2; C1769 ×4; C1776; C1887 ×2; C2629; J0690; J1644 ×2; J2250; J3010; Q9967 ×2

== ENCOUNTER 2017-08-26 13:03 | Inpatient (IN) | payer MEDICARE, OTHER ==
[2017-08-26 13:03] VITALS: BMI 19.6
--- NOTE | 2017-08-26 13:46 | ED PDOC ---
Arrival/HPI - General Chief Complaint: Lower Extremity Problem/Injury Time Seen by Provider: 08/26/17 13:18 Historian: Patient - History of Present Illness Narrative History of Present Illness (Text): 08/26/17 13:46 A 67 year old male sent into the emergency department from [facility] complaining of pain to right great toe for the past 3 weeks. Patient was noted to have dizziness and low blood pressure while in the doctors office. He reports a productive cough over the past 2 weeks. Patient denies any fever, chills nausea, vomiting, abdominal pain, chest pain, shortness of breath or any other complaints. PMD: Dr. Meeta Pineda Time/Duration: Other (Toe pain x3 weeks, Cough x2 weeks) Symptom Course: Unchanged Quality: Other Context: Home Past Medical History - Provider Review Nursing Documentation Reviewed: Yes - Infectious Disease Hx of Infectious Diseases: None - Tetanus Immunization Tetanus Immunization: Unknown - Cardiac Hx Pacemaker: No - Pulmonary Hx Respiratory Disorders: Yes Hx Chronic Obstructive Pulmonary Disease (COPD): Yes - Neurological Hx Neurological Disorder: Yes Hx Dizziness: Yes Hx Paralysis: No - HEENT Hx HEENT Disorder: No (WEARS RX GLASSES) Other/Comment: laser sx eyes - Renal Hx Dialysis: Yes (MWF) Type of Dialysis Access: L arm shunt Hx Renal Failure: Yes - Endocrine/Metabolic Hx Endocrine Disorders: Yes Hx Diabetes Mellitus Type 2: Yes - Hematological/Oncological Hx Blood Transfusions: No Hx Blood Transfusion Reaction: No - Integumentary Hx Dermatological Disorder: Yes Other/Comment: hx of wounds due to diabetes - Musculoskeletal/Rheumatological Hx Musculoskeletal Disorders: Yes - Gastrointestinal Hx Gastrointestinal Disorders: Yes - Genitourinary/Gynecological Hx Genitourinary Disorders: No Hx Prostate Problems: Yes - Psychiatric Hx Emotional Abuse: No Hx Physical Abuse: No Hx Substance Use: No - Surgical History Other/Comment: shunt in L arm - Anesthesia Hx Anesthesia: Yes Hx Anesthesia Reactions: No Hx Malignant Hyperthermia: No - Suicidal Assessment Feels Threatened In Home Enviroment: No Family/Social History - Physician Review Nursing Documentation Reviewed: Yes Family/Social History: No Known Family HX Smoking Status: Former Smoker Hx Alcohol Use: No Hx Substance Use: No Hx Substance Use Treatment: No Allergies/Home Meds Allergies/Adverse Reactions: Allergies No Known Allergies Allergy (Verified 08/26/17 13:14) Home Medications: Home Meds Medication Instructions Recorded Confirmed Albuterol Sulfate [Albuterol 0.09 mg IH QID PRN 10/22/13 08/26/17 Sulfate Hfa] clonazePAM [Klonopin] 0.5 mg PO BID 08/18/14 08/26/17 Aspirin [Aspirin EC] 81 mg PO DAILY 11/27/14 08/26/17 Carvedilol [Coreg] 25 mg PO BID 11/27/14 08/26/17 Isosorbide Mononitrate ER [Imdur 60 mg PO DAILY 11/27/14 08/26/17 ER] Lisinopril [Zestril] 40 mg PO DAILY 05/26/16 08/26/17 Omeprazole 20 mg PO DAILY 06/29/16 08/26/17 Albuterol 0.083% [Albuterol 0.083% 3 ml IH PRN PRN 07/11/17 08/26/17 Inhal Mine (2.5 mg/3 ml) UD] Calcium Acetate [Phoslo] 667 mg PO WM 07/11/17 08/26/17 Insulin Detemir [Levemir] 6 - 7 units SC HS PRN 07/11/17 08/26/17 Meloxicam [Mobic] 7.5 mg PO DAILY 07/11/17 08/26/17 Nitroglycerin [Nitrostat] 0.4 mg SL PRN 07/11/17 08/26/17 Cephalexin [cephalexin] 250 mg PO TID 08/10/17 08/26/17 oxyCODONE/Acetaminophen [Percocet 1 tab PO Q8 PRN 08/10/17 08/26/17 5/325 mg Tab] Review of Systems - Physician Review All systems were reviewed & negative as marked: Yes - Review of Systems Constitutional: absent: Fevers, Night Sweats Respiratory: Cough, Sputum. absent: SOB Cardiovascular: absent: Chest Pain Gastrointestinal: absent: Abdominal Pain, Nausea, Vomiting Musculoskeletal: Other (Right great toe pain) Neurological: Dizziness Physical Exam Vital Signs Reviewed: Yes Vital Signs Temp Pulse Resp BP Pulse Ox 08/26/17 16:07 70 16 90/69 L 97 08/26/17 13:26 97.5 F L 67 16 79/56 L 96 Temperature: Afebrile Blood Pressure: Hypotensive Pulse: Regular Respiratory Rate: Normal Appearance: Positive for: Well-Appearing, Non-Toxic, Comfortable Pain Distress: None Mental Status: Positive for: Alert and Oriented X 3 - Systems Exam Head: Present: Atraumatic, Normocephalic Pupils: Present: PERRL Extroacular Muscles: Present: EOMI Conjunctiva: Present: Normal Mouth: Present: Moist Mucous Membranes Neck: Present: Normal Range of Motion Respiratory/Chest: Present: Clear to Auscultation, Good Air Exchange. No: Respiratory Distress, Accessory Muscle Use Cardiovascular: Present: Regular Rate and Rhythm, Normal S1, S2. No: Murmurs Abdomen: Present: Normal Bowel Sounds. No: Tenderness, Distention, Peritoneal Signs Upper Extremity: Present: Normal Inspection, NORMAL PULSES. No: Cyanosis, Edema Lower Extremity: Present: Erythema (Discoloration over the right great toe extending to the dorsum of right foot). No: Edema, NORMAL PULSES (Diminished DP pulse on right foot) Neurological: Present: GCS=15, Speech Normal Skin: Present: Warm, Dry, Normal Color. No: Rashes Psychiatric: Present: Alert, Oriented x 3, Normal Insight, Normal Concentration Medical Decision Making ED Course and Treatment: 08/26/17 13:45 EKG shows NSR at [address]/T wave changes. Interpreted by me. - Lab Interpretations Microbiology Results: Microbiology Results 08/26/17 14:30 Blood-Venous Blood Culture - Preliminary NO GROWTH AFTER 4 DAYS 08/26/17 14:00 Blood-Venous Blood Culture - Preliminary NO GROWTH AFTER 4 DAYS Lab Results: 08/26/17 14:00 08/26/17 14:00 Lab Results 08/26/17 14:00: Blood Type O POSITIVE, Antibody Screen Negative, BBK History Checked Patient has bt 08/26/17 14:00: Sodium 138, Chloride 93 L, Potassium 4.3, Carbon Dioxide 30, Anion Gap 19, BUN 56 H, Creatinine 7.0 H, Est GFR ( Amer) 10, Est GFR ( Non-Af Amer) 8, Random Glucose 261 H, Calcium 9.5, Total Bilirubin 0.9, AST 16 L , ALT 28, Alkaline Phosphatase 165 H, Troponin I 0.38 H* D, Total Protein 6.7, Albumin 3.6, Globulin 3.1, Albumin/Globulin Ratio 1.1 08/26/17 14:00: pO2 28 L, VBG pH 7.34, VBG pCO2 65.0 H, VBG HCO3 35.1 H, VBG Total CO2 37.1 H, VBG O2 Sat (Calc) 53.5, VBG Base Excess 7.0 H, VBG Potassium 4.5, Sodium 137.0, Chloride 96.0 L, Glucose 289 H, Lactate 1.4, FiO2 21.0, Venous Blood Potassium 4.5 08/26/17 14:00: PT 13.3 H, INR 1.20 H, APTT 35.2 08/26/17 14:00: WBC 6.2, RBC 3.62, Hgb 10.9 L, Hct 35.6 L, MCV 98.3, MCH 30.1, MCHC 30.6 L, RDW 13.8, Plt Count 140, MPV 13.1 H, Gran % 59.2, Lymph % (Auto) 20.6 L, Trimble % (Auto) 6.9 H, Eos % (Auto) 12.5 H, Baso % (Auto) 0.8, Gran # 3.68 , Lymph # 1.3, Trimble # 0.4, Eos # 0.8 H, Baso # 0.05 08/26/17 13:17: POC Glucose (mg/dL) 275 H - RAD Interpretation Radiology Orders: 08/26/17 13:47 CHEST PORTABLE [RAD] Stat 08/26/17 13:48 FOOT RIGHT 3 VIEWS ROUTINE [RAD] Stat - Medication Orders Current Medication Orders: Aspirin (Ecotrin) 81 mg PO DAILY [facility] Last Admin: 08/31/17 10:17 Dose: 81 mg Cadexomer Iodine (Iodosorb) 0 gm TOP DAILY [facility] Calcium Acetate (Phoslo) 667 mg PO WM [facility] Last Admin: 08/31/17 10:18 Dose: 667 mg Clonazepam (Klonopin) 0.5 mg PO BID [facility] PRN Reason: Protocol Last Admin: 08/31/17 10:18 Dose: 0.5 mg Behavioural Document 08/31/17 10:18 MM (Rec: 08/31/17 10:18 MM [id number]) Maintenance Maintenance Dose Yes Nonmedicinal Nonmedicinal Interventions Therapeutic Communication Behavior Behavior for Medication: Anxiety Re-Assess: Reassess Psych Meds Document 08/31/17 11:18 MM (Rec: 08/31/17 12:31 MM [id number]) Reassess Psych Med Effective Clopidogrel Bisulfate (Plavix) 75 mg PO DAILY [facility] Last Admin: 08/31/17 10:18 Dose: 75 mg Fluoxetine HCl (Prozac) 20 mg PO DAILY [facility] Last Admin: 08/31/17 10:19 Dose: 20 mg Vancomycin HCl (Vancomycin 1gm) 1 gm in 250 mls @ 167 mls/hr IVPB MWF [facility] PRN Reason: Protocol Last Admin: 08/30/17 16:21 Dose: 167 mls/hr eMAR Start Stop Document 08/30/17 16:21 CV (Rec: 08/30/17 16:21 CV [id number]) Intravenous Solution Start Date 08/30/17 Start Time 16:21 Meropenem 500 mg/ Sodium (Chloride) 100 mls @ 100 mls/hr IVPB QPM [facility] PRN Reason: Protocol Stop: 09/05/17 22:01 Insulin Human Regular (Humulin R Med) 0 units SC ACHS [facility] Last Admin: 08/31/17 11:28 Dose: 1 units MAR Blood Glucose Document 08/31/17 11:28 MM (Rec: 08/31/17 11:28 MM [id number]) Blood Glucose Finger Stick Blood Glucose (70-120) 167 Subcutaneous Administrations Document 08/31/17 11:28 MM (Rec: 08/31/17 11:28 MM [id number]) Injection Site MAR Injection Site Right Arm Charges for Administration # of Subcutaneous Administrations 1 Isosorbide Mononitrate (Imdur) 60 mg PO ACB [facility] Last Admin: 08/31/17 10:19 Dose: 60 mg Mupirocin (Bactroban Ointment) 1 gm TOP BID [facility] Last Admin: 08/31/17 10:19 Dose: Oxycodone/Acetaminophen (Percocet 5/325 Mg Tab) 1 tab PO Q6H PRN PRN Reason: Pain, moderate (4-7) Stop: 09/03/17 10:50 Last Admin: 08/31/17 11:22 Dose: 1 tab MAR Pain Assessment Document 08/31/17 11:22 MM (Rec: 08/31/17 11:23 MM [id number]) Pain Reassessment Is this a pain reassessment? Yes Sleep Is patient sleeping during reassessment? No Presence of Pain Presence of Pain Yes Pain Scale Used Pain Scale Used Numeric Location Left, Right or Bilateral Right Pain Location Body Site Great Toe Description Description Intermittent Intensity of Pain at present 8 Acceptable Level of Pain 4 Pain Behavior Withdrawal from Touch Aggravating Factors Changing Position Alleviating Factors/Management Medication Techniques Position Change Alleviating Factors Medication Re-Assess: [facility] Pain Assessment Document 08/31/17 12:22 MM (Rec: 08/31/17 12:32 MM [id number]) Pain Reassessment Is this a pain reassessment? Yes Sleep Is patient sleeping during reassessment? No Pain Scale Used Pain Scale Used Numeric Location Left, Right or Bilateral Right Pain Location Body Site Great Toe Description Description Intermittent Pain Behavior Withdrawal from Touch Aggravating Factors Changing Position Alleviating Factors/Management Medication Techniques Alleviating Factors Medication Effects of Pain 2 Tamsulosin HCl (Flomax) 0.4 mg PO DAILY [facility] Last Admin: 08/31/17 10:17 Dose: 0.4 mg Discontinued Medications Sodium Chloride (Sodium Chloride 0.9%) 1,000 mls @ 999 mls/hr IV .Q1H1M STA Stop: 08/26/17 14:48 Last Admin: 08/26/17 14:12 Dose: 999 mls/hr eMAR Start Stop Document 08/26/17 14:12 HI (Rec: 08/26/17 14:12 HI [id number]) Intravenous Solution Start Date 08/26/17 Start Time 14:12 Piperacillin Sod/Tazobactam Sod (Zosyn 2.25 Gm In 0.9% 100 Ml) 2.25 gm in 100 mls @ 100 mls/hr IVPB STAT STA PRN Reason: Protocol Stop: 08/26/17 15:42 Last Admin: 08/26/17 15:13 Dose: 100 mls/hr eMAR Start Stop Document 08/26/17 15:13 HI (Rec: 08/26/17 15:14 HI [id number]) Intravenous Solution Start Date 08/26/17 Start Time 15:14 Vancomycin HCl (Vancomycin 750 Mg In Ns) 750 mg in 250 mls @ 167 mls/hr IVPB STAT STA Stop: 08/26/17 16:14 Last Admin: 08/26/17 16:31 Dose: 167 mls/hr eMAR Start Stop Document 08/26/17 16:31 HI (Rec: 08/26/17 16:31 HI [id number]) Intravenous Solution Start Date 08/26/17 Start Time 16:31 Meropenem 500 mg/ Sodium (Chloride) 50 mls @ 100 mls/hr IVPB Q12 [facility] PRN Reason: Protocol Stop: 09/05/17 10:01 Vancomycin HCl (Vancomycin 1gm) 1 gm in 250 mls @ 167 mls/hr IVPB STAT STA PRN Reason: Protocol Stop: 08/27/17 11:07 Last Admin: 08/27/17 13:31 Dose: 167 mls/hr Comments: given late- patient in dialysis. dialysis unable to administer eMAR Start Stop Document 08/27/17 13:31 JFR (Rec: 08/27/17 13:31 [id number] [id number]) Intravenous Solution Start Date 08/27/17 Start Time 13:31 Meropenem 500 mg/ Sodium (Chloride) 100 mls @ 100 mls/hr IVPB Q12 [facility] PRN Reason: Protocol Stop: 09/05/17 10:01 Last Admin: 08/31/17 10:11 Dose: 100 mls/hr eMAR Start Stop Document 08/31/17 10:11 MM (Rec: 08/31/17 10:17 MM [id number]) Intravenous Solution Start Date 08/31/17 Start Time 10:17 End Date 08/31/17 End time 11:17 Total Infusion Time 60 Ketorolac Tromethamine (Toradol) 10 mg IVP STAT STA Stop: 08/26/17 13:49 Last Admin: 08/26/17 14:12 Dose: 10 mg MAR Pain Assessment Document 08/26/17 14:12 HI (Rec: 08/26/17 14:12 [id number]) Pain Reassessment Is this a pain reassessment? No Sleep Is patient sleeping during reassessment? No Presence of Pain Presence of Pain Yes Location Left, Right or Bilateral Right Pain Location Body Site Great Toe IVP Administration Document 08/26/17 14:12 HI (Rec: 08/26/17 14:12 HI [id number]) Charges for Administration # of IVP Administrations 1 Meloxicam (Mobic) 7.5 mg PO DAILY [facility] Last Admin: 08/31/17 10:24 Dose: Not Given Non-Admin Reason: Patient Refused Oxycodone/Acetaminophen (Percocet 5/325 Mg Tab) 1 tab PO Q8 PRN PRN Reason: Pain, moderate (4-7) Stop: 08/29/17 23:32 Last Admin: 08/29/17 00:13 Dose: 1 tab [facility] Pain Assessment Document 08/29/17 00:13 ST (Rec: 08/29/17 00:14 ST [id number]) Pain Reassessment Is this a pain reassessment? No Sleep Is patient sleeping during reassessment? No Presence of Pain Presence of Pain Yes Pain Scale Used Pain Scale Used Numeric Location Left, Right or Bilateral Right Pain Location Body Site Great Toe Description Description Intermittent Intensity of Pain at present 8 Alleviating Factors/Management Medication Techniques Re-Assess: [facility] Pain Assessment Document 08/29/17 01:13 ST (Rec: 08/29/17 04:06 ST [id number]) Pain Reassessment Is this a pain reassessment? Yes Sleep Is patient sleeping during reassessment? Yes Oxycodone/Acetaminophen (Percocet 5/325 Mg Tab) 1 tab PO STAT STA Stop: 08/31/17 02:08 Last Admin: 08/31/17 02:24 Dose: 1 tab [facility] Pain Assessment Document 08/31/17 02:24 [place] (Rec: 08/31/17 02:24 [place] [id number]) Pain Reassessment Is this a pain reassessment? No Sleep Is patient sleeping during reassessment? No Presence of Pain Presence of Pain Yes Pain Scale Used Pain Scale Used Numeric Location Left, Right or Bilateral Right Pain Location Body Site Great Toe Description Description Throbbing Intensity of Pain at present 8 Pain Behavior Irritability Alleviating Factors/Management Medication Techniques Alleviating Factors Medication Oxycodone/Acetaminophen (Percocet 5/325 Mg Tab) 1 tab PO Q6H PRN PRN Reason: Pain, moderate (4-7) Stop: 09/03/17 10:32 Pneumococcal Polyvalent Vaccine (Pneumovax 23 Vaccine) 0.5 ml IM .ONCE ONE Stop: 08/26/17 22:53 - Scribe Statement The provider has reviewed the documentation as recorded by the Scribe Araceli Gusman Provider Scribe Attestation: All medical record entries made by the Scribe were at my direction and personally dictated by me. I have reviewed the chart and agree that the record accurately reflects my personal performance of the history, physical exam, medical decision making, and the department course for this patient. I have also personally directed, reviewed, and agree with the discharge instructions and disposition. Disposition/Present on Arrival - Present on Arrival Any Indicators Present on Arrival: Yes History of DVT/PE: No History of Uncontrolled Diabetes: Yes Urinary Catheter: No History of Decub. Ulcer: No History Surgical Site Infection Following: None - Disposition Have Diagnosis and Disposition been Completed?: Yes Diagnosis: Diabetic foot infection Disposition: HOSPITALIZED Disposition Time: 15:12 Condition: STABLE
[2017-08-26] MEDS ORDERED: Sodium Chloride 0.9% 1,000 ML IV STA (13:48)
[2017-08-26 14:18] LABS: VENOUS BLOOD GAS PO2 28 mm/Hg (30-55); VENOUS BLOOD PH 7.34 (7.32-7.43)
[2017-08-26 14:25] LABS: BASO # 0.05 K/mm3 (0.0-2.0); BASO % 0.8 % (0.0-3.0); EOS # 0.8 (0.0-0.7); EOS % 12.5 % (1.5-5.0); GRAN # 3.68 (1.4-6.5); GRAN % 59.2 % (50.0-68.0); HEMOGLOBIN 10.9 g/dL (14.0-18.0); LYMPH # 1.3 (1.2-3.4); LYMPH % 20.6 % (22.0-35.0); MEAN CELL VOLUME 98.3 fl (80.0-105.0); MEAN CORPUSCULAR HEMOGLOBIN 30.1 pg (25.0-35.0); MEAN CORPUSCULAR HGB CONC 30.6 g/dl (31.0-37.0); MEAN PLATELET VOLUME 13.1 fl (7.0-11.0); MONO # 0.4 (0.1-0.6); MONO % 6.9 % (1.0-6.0); RBC 3.62 10^6/uL (3.5-6.1); RED CELL DISTRIBUTION WIDTH 13.8 % (11.5-14.5); WHITE BLOOD COUNT 6.2 10^3/ul (4.5-11.0)
[2017-08-26 14:30] LABS: INR 1.2 (0.93-1.08); PARTIAL THROMBOPLASTIN TIME 35.2 Seconds (25.1-36.5); PROTHROMBIN TIME 13.3 SECONDS (9.4-12.5)
[2017-08-26 14:35] LABS: ALB/GLOB RATIO 1.1 (1.1-1.8); ALBUMIN 3.6 g/dL (3.0-4.8); CALCIUM 9.5 mg/dL (8.4-10.5)
[2017-08-26] MEDS ORDERED: Piperacillin/Tazobact 2.25gm 2.25 GM/100 ML BAG IVPB STA (14:43)
[2017-08-26] MEDS ORDERED: Vancomycin 500 mg Inj IVPB STA (14:43)
[2017-08-26] MEDS ORDERED: Vancomycin 750mg 750 MG/250 ML BAG IVPB STA (14:45)
[2017-08-26 14:46] LABS: TROPONIN I 0.38 ng/mL
--- NOTE | 2017-08-26 17:04 | RAD ---
HISTORY: hypotension COMPARISON: Comparison made with chest radiograph dated 03/18/[address] scan chest dated 02/11/2017. FINDINGS: LUNGS: Poor inspiration with low lung volumes, crowded bronchovascular markings and mild bibasilar atelectasis. Additionally, re- demonstrated are multiple scattered tiny calcified granulomata bilaterally. . PLEURA: No significant pleural effusion identified, no pneumothorax apparent. CARDIOVASCULAR: Normal. OSSEOUS STRUCTURES: No significant abnormalities. VISUALIZED UPPER ABDOMEN: Normal. OTHER FINDINGS: None. IMPRESSION: Poor inspiration with low lung volumes, crowded bronchovascular markings and mild bibasilar atelectasis. Multiple tiny bilateral calcified granulomata.
--- NOTE | 2017-08-26 17:11 | RAD ---
PROCEDURE: Right Foot Radiographs. HISTORY: infection r/o osteo COMPARISON: None. FINDINGS: BONES: No evidence of acute displaced fracture nor dislocation. There is slight cortical regularity of the base of the 5th metatarsal which could represent sequela of old trauma. Clinical correlation recommended. No definitive evidence of cortical destructive changes. Small plantar and posterior calcaneal enthesophytes are present. JOINTS: Degenerative changes of the sesamoid bones subjacent to the distal right 1st metatarsal. SOFT TISSUES: There appears to be some mild soft tissue swelling right great toe. No evidence of subcutaneous air. Extensive vascular calcifications are present. OTHER FINDINGS: None. IMPRESSION: No evidence of acute displaced fracture nor dislocation ; rule out the sequela of old trauma base 5th metatarsal. . No definitive cortical destructive changes. . There does appear to be mild soft tissue swelling right great toe suggesting cellulitis. Followup MRI recommended to exclude early osteomyelitis which cannot be excluded on this exam if clinically indicated. Extensive vascular calcifications.
[2017-08-26] MEDS ORDERED: Influenza Vaccine 60 mcg/0.5 mL SYR (4YR UP) IM ONE (22:52)
[2017-08-26] MEDS ORDERED: Pneumococcal 23-Valent Vaccine IM ONE (22:52)
[2017-08-26] MEDS ORDERED: Oxycodone/Acetaminophen 5/325 mg Tab PO PRN (23:31)
--- NOTE | 2017-08-27 02:28 | HP ---
08/26/2017 HISTORY OF PRESENT ILLNESS: Mr. Amos is a 67-year-old male sent to the ED from Wound Care Department. From Wound Care, he was complaining of right great toe pain for past 3 weeks. He also was found to be hypotensive in the ER with 80 systolic blood pressure. He underwent dialysis for end-stage renal disease yesterday. He denies any fever or cough with expectoration. No chest pain. No shortness of breath. He has COPD, no recent exacerbation, end-stage renal disease on hemodialysis. He also has diabetes mellitus type 2, well controlled on currently medications. PAST MEDICAL HISTORY: Diabetes mellitus type 2, end-stage renal disease, on hemodialysis, history of hypotension, post dialysis previously also BPH. PAST SURGICAL HISTORY: Shunt in left arm. PERSONAL HISTORY: No history of alcohol abuse, former smoker. FAMILY HISTORY: Noncontributory. SOCIAL HISTORY: Lives at home. ALLERGIES: NO KNOWN DRUG ALLERGIES. MEDICATIONS: Albuterol p.r.n., Klonopin 0.5 mg p.o. b.i.d., aspirin 81 mg daily, Coreg 25 mg p.o. b.i.d., Imdur 60 mg p.o. daily, lisinopril 40 mg daily, omeprazole 20 mg daily, calcium daily, Levemir 67 units p.r.n., Meloxicam p.r.n., cephalexin t.i.d., and Percocet p.r.n. for pain. REVIEW OF SYSTEMS: As per HPI. Rest of 12-point review of systems reviewed negative. PHYSICAL EXAMINATION GENERAL: Comfortable in bed, in no acute distress. VITAL SIGNS: Temperature 97.5, respiratory rate 16 per minute, blood pressure 80/70 and heart rate is 96 per minute and oxygen saturation 98% on room air. HEENT: Pallor positive. NECK: Supple. CHEST: Air entry present equal and bilateral. No added sounds. CARDIOVASCULAR EXAM: S1 and S2 normal. No murmur and no gallop. EXTREMITIES: Erythema, discoloration of the right extending into the dorsum of the right foot. SKIN: Warm and dry. No rashes. SPINE: Nontender. LABORATORY DATA: White count 6.2, hemoglobin 10.9, hematocrit 35.6, MCV 98, platelet count 140. Granulocyte 59%, lymphocyte 20%, monocyte 6.9%, eosinophil 12.5%. PT 13.3, INR 1.2. Sodium 138, potassium 4.3, creatinine 7 and glucose 253. Troponin 0.38. Bilirubin 0.9. ASSESSMENT: 1. Hypotension. 2. End-stage renal disease, on hemodialysis. 3. Non-ST elevation myocardial infarction. 4. Chronic anemia. 5. Diabetes mellitus type 2. PLAN: He will be admitted to the hospital on telemonitoring. He does a bolus of fluid in the ER. We will monitor the blood pressure closely. He got Zosyn and vancomycin in the ER. We will get ID consultation for right leg cellulitis and possible sepsis. Blood culture drawn. He also received one dose of Toradol in the ER for pain 10 mg IV, Percocet p.r.n. for pain and morphine for severe pain. Podiatry consultation with Dr. Smith will be requested. We will continue DuoNeb 3 times a day and p.r.n. aspirin 81 mg daily, Coreg 12.5 mg p.o. b.i.d. to continue, clonazepam 0.5 mg b.i.d., Plavix 75 mg b.i.d., Imdur 60 mg daily, lisinopril 20 mg daily, nitroglycerin p.r.n., and Flomax 0.4 mg daily. He will be admitted to the telemonitoring. Discussed with the ER attending. Poonam Oakley MD MTDD
[2017-08-27] MEDS ORDERED: Insulin Regular 1 UNITS/0.01 ML ML SC SCH (07:30)
[2017-08-27] MEDS: Insulin Reg-MEDIUM-Coverage SC SCH ×4 (08:15→22:28)
[2017-08-27] MEDS ORDERED: Meropenem 500 MG in Sodium Chloride 0.9% 50 ML IVPB SCH (10:00)
[2017-08-27 10:56] LABS: BASO # 0.07 K/mm3 (0.0-2.0); BASO % 1.3 % (0.0-3.0); EOS # 0.9 (0.0-0.7); EOS % 15.7 % (1.5-5.0); GRAN # 3.21 (1.4-6.5); GRAN % 57.8 % (50.0-68.0); HEMOGLOBIN 10.3 g/dL (14.0-18.0); LYMPH % 17.5 % (22.0-35.0); MEAN CELL VOLUME 97.1 fl (80.0-105.0); MEAN CORPUSCULAR HGB CONC 30.9 g/dl (31.0-37.0); MEAN PLATELET VOLUME 13.3 fl (7.0-11.0); MONO # 0.4 (0.1-0.6); MONO % 7.7 % (1.0-6.0); RBC 3.43 10^6/uL (3.5-6.1); RED CELL DISTRIBUTION WIDTH 13.9 % (11.5-14.5); WHITE BLOOD COUNT 5.6 10^3/ul (4.5-11.0)
[2017-08-27] MEDS: Vancomycin 1gm in NS 250ml 1 GM/250 ML BAG IVPB STA ×2 (11:19→13:31)
[2017-08-27 11:36] LABS: CALCIUM 8.8 mg/dL (8.4-10.5); TROPONIN I 0.32 ng/mL
[2017-08-27] MEDS: Meropenem 500 MG in Sodium Chloride 0.9% 100 ML IVPB SCH ×2 (13:18→22:28)
[2017-08-27] MEDS: Meloxicam 7.5 MG TAB PO SCH (13:18)
--- NOTE | 2017-08-27 14:59 | CP.PCM.CON ---
<Fernandez Villanueva - Last Filed: 08/27/17 16:05> History of Present Illness - History of Present Illness History of Present Illness: Podiatry Consult Note- Dr. Smith 67 y.o male with DM, renal failure on HD seen at bedside for right foot pain. Patient reports that his big toe started hurting 1 month ago, but in the last 2- 3 weeks, the pain and sweeling has gotten progressively worse. He went to his business office manager, which he can't recall the name, with [facility]. She states that his toenail needs to be removed but before she will do anything, she referred him to see a vascular doctor to check in blood flow. Patient reports that he had a procedure 2 weeks ago where his arteries are opened up by Dr. Prasad. Patient was suppose to follow up with his business office manager to take care of his toenail. Today, patient reports right foot pain. He describes the pain as a throbbing and stabbing pain to his entire right foot. Patient reports the pain started at the big toe and now the entire foot is in pain. He rates his pain 10/ 10. He reports the redness decreasing as well as pain since he was given antibiotics. Patient denies n/v/sob/cp/chills/f or d. PMH: DM, retinopathy on HD, low blood pressure PSH: stent placement in heart, vascular procedure 2 weeks ago ALL: NKDA MEDS: see OCT list PSH: former smoker- 10 years 3 cigarettes per day, denies illicit drug use, denies drinking alcohol FH: father-asthma, mother-DM Past Patient History - Infectious Disease Hx of Infectious Diseases: None - Tetanus Immunizations Tetanus Immunization: Unknown - Past Medical History & Family History Past Medical History?: Yes - Past Social History Smoking Status: Former Smoker - CARDIAC Hx Congestive Heart Failure: Yes Hx Hypercholesterolemia: Yes Hx Hypertension: Yes Hx Pacemaker: No Other/Comment: ptca - PULMONARY Hx Respiratory Disorders: Yes Hx Asthma: Yes Hx Chronic Obstructive Pulmonary Disease (COPD): Yes Hx Pneumonia: Yes - NEUROLOGICAL Hx Neurological Disorder: Yes Hx Dizziness: Yes - HEENT Hx HEENT Problems: (WEARS RX GLASSES) Hx Blind: Yes (r eye) Other/Comment: laser sx eyes - RENAL Date of Last Dialysis Treatment: 08/25/17 - ENDOCRINE/METABOLIC Hx Endocrine Disorders: Yes Hx Diabetes Mellitus Type 2: Yes - HEMATOLOGICAL/ONCOLOGICAL Hx Hepatitis A: Yes - INTEGUMENTARY Hx Dermatological Problems: Yes Other/Comment: hx of wounds due to diabetes multiple skin discolorations and dry skin both legs, left great toe swelling pain color deep red and brown skin areas around toenail, generalized dry itchy skin - MUSCULOSKELETAL/RHEUMATOLOGICAL Hx Falls: No - GASTROINTESTINAL Hx Gastrointestinal Disorders: Yes - GENITOURINARY/GYNECOLOGICAL Hx Genitourinary Disorders: No Hx Prostate Problems: Yes - PSYCHIATRIC Hx Substance Use: No - SURGICAL HISTORY Hx Cardiac Catheterization: Yes Hx Coronary Stent: Yes (07/2014 x2) Other/Comment: shunt in L arm - ANESTHESIA Hx Anesthesia: Yes Hx Anesthesia Reactions: No Hx Malignant Hyperthermia: No Meds Allergies/Adverse Reactions: Allergies Allergy/AdvReac Type Severity Reaction Status Date / Time No Known Allergies Allergy Verified 08/26/17 13:14 - Medications Medications: Current Medications Aspirin (Ecotrin) 81 mg PO DAILY [facility] Last Admin: 08/27/17 13:19 Dose: 81 mg Clonazepam (Klonopin) 0.5 mg PO BID [facility] PRN Reason: Protocol Last Admin: 08/27/17 13:20 Dose: 0.5 mg Clopidogrel Bisulfate (Plavix) 75 mg PO DAILY [facility] Last Admin: 08/27/17 13:20 Dose: 75 mg Fluoxetine HCl (Prozac) 20 mg PO DAILY [facility] Last Admin: 08/27/17 13:19 Dose: 20 mg Meropenem 500 mg/ Sodium (Chloride) 100 mls @ 100 mls/hr IVPB Q12 [facility] PRN Reason: Protocol Stop: 09/05/17 10:01 Last Admin: 08/27/17 13:18 Dose: 100 mls/hr Insulin Human Regular (Humulin R Med) 0 units SC ACHS [facility] Last Admin: 08/27/17 13:47 Dose: Not Given Isosorbide Mononitrate (Imdur) 60 mg PO ACB [facility] Last Admin: 08/27/17 08:15 Dose: 60 mg Meloxicam (Mobic) 7.5 mg PO DAILY [facility] Last Admin: 08/27/17 13:18 Dose: 7.5 mg Oxycodone/Acetaminophen (Percocet 5/325 Mg Tab) 1 tab PO Q8 PRN PRN Reason: Pain, moderate (4-7) Stop: 08/29/17 23:32 Tamsulosin HCl (Flomax) 0.4 mg PO DAILY [facility] Last Admin: 08/27/17 13:19 Dose: 0.4 mg Physical Exam - Constitutional Appears: Well, Non-toxic, No Acute Distress - Extremities Exam Additional comments: Focused lower extremity examination: Vasc: Right DP unpalpable, Left DP weakly palpable, PT pulses bilaterally unpalpable, temperature gradient is cool to cool proximal to distal, INVESTIGATOR delayed to 4 seconds to digits, non pitting edema noted to the right forefoot Ortho: severe pain with palpation to entire right foot, worse with palpation to the nail plate and medial aspect of hallux, Neuro: gross intact, protective sensation diminished bilaterally Derm: onychocryptosis noted to the medial nail border with hyperpigmented callus noted to the upper corner of medial nail folds; hypertrophic nails, yellow discolored toenails with subungal debris x 10 with possible ulceration noted to the medial nail fold, erythema noted to the dorsum of the foot, extending dorsum of digits 1-4 to the midfoot region. No odor, no drainage, no purulence, no abscess, no undermining or tunneling appreciated. - Neurological Exam Neurological exam: Alert, Oriented x3 - Psychiatric Exam Psychiatric exam: Normal Affect, Normal Mood Results - Vital Signs Recent Vital Signs: Last Vital Signs Temp 97.9 F 08/27/17 06:00 Pulse 75 08/27/17 06:00 Resp 18 08/27/17 06:00 BP 116/77 08/27/17 06:00 Pulse Ox 100 08/27/17 06:00 - Labs Result Diagrams: 08/27/17 10:49 08/27/17 10:48 Labs: Laboratory Results - last 24 hr 08/26/17 08/27/17 08/27/17 17:18 10:48 10:49 WBC 5.6 RBC 3.43 L Hgb 10.3 L Hct 33.3 L MCV 97.1 MCH 30.0 MCHC 30.9 L RDW 13.9 Plt Count 118 L MPV 13.3 H Gran % 57.8 Lymph % (Auto) 17.5 L Hendricks % (Auto) 7.7 H Eos % (Auto) 15.7 H Baso % (Auto) 1.3 Gran # 3.21 Lymph # 1.0 L Hendricks # 0.4 Eos # 0.9 H Baso # 0.07 ESR 35 H Sodium 138 Potassium 4.7 Chloride 98 Carbon Dioxide 25 Anion Gap 19 BUN 70 H Creatinine 8.0 H* Est GFR ( Amer) 8 Est GFR (Non-Af Amer) 7 POC Glucose (mg/dL) 253 H Random Glucose 253 H Calcium 8.8 Troponin I 0.32 H* Assessment & Plan - Assessment and Plan (Free Text) Assessment: 67 y.o male with DM, renal failure on HD with cellulitis most likely secondary to right hallux onychocryptosis Plan: Patient examined and evaluated Discussed plan in detail with attending Dr. Smith Charts, labs, vitals reviewed (afebrile, WBC=6.2) X-rays finals results Impression: No evidence of acute displaced fracture nor dislocation ; rule out the sequela of old trauma base 5th metatarsal. . No definitive cortical destructive changes. There does appear to be mild soft tissue swelling right great toe suggesting cellulitis. Followup MRI recommended to exclude early osteomyelitis which cannot be excluded on this exam if clinically indicated. Extensive vascular calcifications. Apply bactroban to the right hallux Podiatry will provide local wound care C/w abx per ID Continue pain management per primary Will order ABIs to assess vascular prior to any nail avulsion procedure Partial nail avulsion can be done as an outpatient. Patient should followup with outside business office manager once discharged <Caroline Smith - Last Filed: 08/31/17 14:23> Meds - Medications Medications: Current Medications Aspirin (Ecotrin) 81 mg PO DAILY [facility] Last Admin: 08/31/17 10:17 Dose: 81 mg Cadexomer Iodine (Iodosorb) 0 gm TOP DAILY [facility] Calcium Acetate (Phoslo) 667 mg PO WM [facility] Last Admin: 08/31/17 14:05 Dose: 667 mg Clonazepam (Klonopin) 0.5 mg PO BID [facility] PRN Reason: Protocol Last Admin: 08/31/17 10:18 Dose: 0.5 mg Clopidogrel Bisulfate (Plavix) 75 mg PO DAILY [facility] Last Admin: 08/31/17 10:18 Dose: 75 mg Fluoxetine HCl (Prozac) 20 mg PO DAILY [facility] Last Admin: 08/31/17 10:19 Dose: 20 mg Vancomycin HCl (Vancomycin 1gm) 1 gm in 250 mls @ 167 mls/hr IVPB MWF [facility] PRN Reason: Protocol Last Admin: 08/30/17 16:21 Dose: 167 mls/hr Meropenem 500 mg/ Sodium (Chloride) 100 mls @ 100 mls/hr IVPB QPM [facility] PRN Reason: Protocol Stop: 09/05/17 22:01 Insulin Human Regular (Humulin R Med) 0 units SC ACHS [facility] Last Admin: 08/31/17 11:28 Dose: 1 units Isosorbide Mononitrate (Imdur) 60 mg PO ACB [facility] Last Admin: 08/31/17 10:19 Dose: 60 mg Mupirocin (Bactroban Ointment) 1 gm TOP BID [facility] Last Admin: 08/31/17 10:19 Dose: Not Given Oxycodone/Acetaminophen (Percocet 5/325 Mg Tab) 1 tab PO Q6H PRN PRN Reason: Pain, moderate (4-7) Stop: 09/03/17 10:50 Last Admin: 08/31/17 11:22 Dose: 1 tab Tamsulosin HCl (Flomax) 0.4 mg PO DAILY [facility] Last Admin: 08/31/17 10:17 Dose: 0.4 mg Results - Vital Signs Recent Vital Signs: Last Vital Signs Temp 97.9 F 08/31/17 06:00 Pulse 87 08/31/17 06:00 Resp 16 08/31/17 06:00 BP 127/85 08/31/17 06:00 Pulse Ox 100 08/31/17 06:00 - Labs Result Diagrams: 08/30/17 06:00 08/30/17 06:00 Labs: Laboratory Results - last 24 hr 08/30/17 08/30/17 08/31/17 16:01 21:59 07:33 POC Glucose (mg/dL) 76 148 H 129 H 08/31/17 11:04 POC Glucose (mg/dL) 167 H Attending/Attestation - Attestation I have personally seen and examined this patient.: Yes I have fully participated in the care of the patient.: Yes I have reviewed all pertinent clinical information: Yes
--- NOTE | 2017-08-27 16:53 | CARD ---
APPROVED REPORT EKG Measurement Heart [id number] <Conclusion> Normal sinus rhythm Possible Left atrial enlargement Consider lateral ischemia Prolonged QT Abnormal ECG
--- NOTE | 2017-08-27 17:32 | CON ---
DATE: 08/27/2017 LOCATION: The patient is in bed in room 376, bed 2. CHIEF COMPLAINT: Right big toe and right foot infection times several days. HISTORY OF PRESENT ILLNESS: This is a 67-year-old male with a history of chronic renal failure on hemodialysis, end-stage renal disease on hemodialysis, hypertension, diabetes, hyperlipidemia, and anemia, who was admitted because of a right foot infection and right big toe infection and there has been no trauma reported. No chest pain. No nausea and vomiting. No fevers. He is weak. He has no diarrhea or constipation. No dysuria or frequency, and has history of healthcare-associated pneumonia. PAST MEDICAL HISTORY: Significant for chronic renal failure on hemodialysis, hypertension, diabetes, healthcare-associated pneumonia, hyperlipidemia, and anemia. PAST SURGICAL HISTORY: Significant for left arm shunt placement. ALLERGIES: THE PATIENT HAS NO KNOWN ALLERGIES TO ANY ANTIBIOTICS. MEDICATIONS: At home include the patient to be on oxycodone, Flomax, omeprazole, nitroglycerin, Zestril, insulin, and inhaler. PHYSICAL EXAMINATION: VITAL SIGNS: The patient's temperature is 97, pulse of 70; it was up to 106, respiratory rate of 19, and blood pressure is 90/60, blood pressure was down to . HEENT: Unremarkable. NECK: Supple. LUNGS: Have decreased breath sounds. HEART: Normal S1 and S2. ABDOMEN: Soft and nontender. EXTREMITIES: Examination of foot, right big toe is erythematous with edema. No drainage. No discharge. However, is significantly swollen foot with big toe swollen, erythematous, and tender to touch. LABORATORY EXAMINATION: Reveals a white count of 6.2, hemoglobin of 10, and a platelets of 140. Coagulation is noted. BUN of 56 and creatinine of 7.0. Troponin is . History and physical examination by Dr. Oakley is reviewed. Dr. Latrell Marie's reading of the patient's x-ray of the foot is reviewed. Chest x-ray is reported, carotid bronchovascular markings. Emergency Room chart is reviewed written by Dr. Burak Laguna. ASSESSMENT AND PLAN: This is a 67-year-old male with chronic renal failure on hemodialysis, hypertension, diabetes, history of healthcare-associated pneumonia, hyperlipidemia, anemia with a left arm shunt admitted now with a right big toe cellulitis, must rule out underlying peripheral vascular disease, peripheral arterial disease, and must rule out underlying osteomyelitis. The patient received a dose of vancomycin and dose of Zosyn yesterday at 2 in the afternoon. We will give another dose of vancomycin this morning and start the patient on meropenem. Pending imaging should have an MRI to rule out osteomyelitis and Vascular consultation regarding the blood supply and arterial studies and podiatric input. We will follow closely with you. We will order a sedimentation rate and C-reactive protein. Jose Miguel Mane MD
--- NOTE | 2017-08-27 22:34 | PN ---
DATE: 08/27/2017 SUBJECTIVE: This 67-year-old male was examined in the renal dialysis unit and his case was reviewed with himself and nurse, Alea Clay, registered nurse. He is dialyzing on a F160, 140 sodium, two K bicarb bath with blood flow rates of 450 mL via his left upper extremity fistula. PHYSICAL EXAMINATION: VITAL SIGNS: Blood pressure is 118/46, pulse is 68. HEART: Regular S1, S2. LUNGS: Clear to auscultation. The patient will dialyze for 3 hours today. Labs will be reviewed. Ewelina Guthrie MD MTDD
--- NOTE | 2017-08-27 22:36 | PN ---
DATE: 08/27/2017 SUBJECTIVE: This 67-year-old male was examined in the renal dialysis unit where he is dialyzing on a F160, 140 sodium, two K bicarb bath. PHYSICAL EXAMINATION: VITAL SIGNS: Blood pressure is 107/50 with a pulse of 72. The patient complains of pain in his right foot and has been medicated, and is receiving IV antibiotics. We are aiming for 2 kg fluid removal and the patient will dialyze again on Monday. Ewelina Guthrie MD MTDD
--- NOTE | 2017-08-27 22:51 | CON ---
DATE: 08/27/2017 HISTORY OF PRESENT ILLNESS: This 67-year-old male was examined. The patient is followed by Dr. Maurice Agarwal, Nephrology for chronic renal failure, hemodialysis-dependent. He is 67 years old. He was admitted from the emergency room at the [facility]. He complained of right great toe pain for the past 3 weeks and in the emergency room was found to have evidence of cellulitis and possible osteomyelitis. He was also noted to be hypotensive and was given fluid resuscitation. PAST MEDICAL HISTORY: The patient has a past medical history of insulin-dependent diabetes mellitus, chronic obstructive pulmonary disease; end-stage renal disease, hemodialysis-dependent; history of hypotension, and atherosclerotic heart disease, hypertension and according to his medical record was being treated with oral antibiotics for right diabetic toe infection under the direction of Dr. Caroline Smith from Podiatry. REVIEW OF SYSTEMS: CONSTITUTIONAL: The patient denies fever or chills. HEAD: Denied headache or seizure. EYE: Denied change in visual acuity. EAR: No hearing loss. THROAT: No swallowing difficulty. NECK: No stiffness. CARDIAC: As per HPI. PULMONARY: No cough. No hemoptysis. GI: No hematemesis. No melena. : End-stage renal disease, hemodialysis dependent. He dialyzes at [facility] Monday, Wednesdays and Fridays. VASCULAR: Denied claudication. PSYCHOLOGICAL: Has history of anxiety. NEUROLOGICAL: No knowledge of stroke. FAMILY HISTORY: Noncontributory. SOCIAL HISTORY: He is a former smoker. Denies alcohol abuse and misuse. Denies IV drug misuse. He has an AV fistula in his left arm. PHYSICAL EXAMINATION: GENERAL: The patient is alert, cooperative, in no acute distress. VITAL SIGNS: Denying fever or chills, with temperature of 97.9, respirations 18, pulse 75 and blood pressure 116/77 with a pulse ox 100% on room air. HEAD: Normocephalic, atraumatic. EYES: No icterus. EARS: Clear. THROAT: Noninjected. NECK: Supple. HEART: Regular S1, S2. LUNGS: Clear. ABDOMEN: Soft. EXTREMITIES: No edema. SKIN: Without rash. NEUROLOGICAL: Intact. PSYCHOLOGICAL: Alert. VASCULAR: Legs warm to touch. Right foot is dressed and he is wearing a surgical shoe. LABORATORY DATA: White count 5600, hemoglobin 10.3, hematocrit 33.3, platelets 118,000. PT/INR 1.20, PTT 35.2. Sodium 138, K 4.7, chloride 98, bicarb 25, BUN 70, creatinine 8.0, random blood sugar 253. Bilirubin 0.9, AST 16, ALT is 28, alk phos 165. Chest x-ray shows poor inspiration, pulmonary vascular congestion, and possible atelectasis. Right foot x-ray was reviewed. It shows evidence of soft tissue swelling near his right great toe. No obvious osteomyelitis. IMPRESSION: This is a 67-year-old male with diabetic toe infection, rule out osteomyelitis, possible cellulitis, and comorbidities of end-stage renal disease, hemodialysis-dependent; atherosclerotic heart disease, history of prostate hypertrophy, insulin-dependent diabetes mellitus, anxiety neurosis, degenerative arthritis, and anemia of chronic disease. PLAN: Plan as discussed with the patient and Dr. Oakley, primary care, will be to dialyze this patient today. He continues on renal diabetic diet. He is ordered to have physical therapy for reconditioning and gait training and has a consultation with infectious disease, Dr. Mane and podiatry, Dr. Caroline Smith pending. He will continue on Ecotrin 81 mg p.o. daily, Flomax 0.4 mg p.o. daily, medium insulin coverage a.c. meals and at bedtime, Imdur 60 mg p.o. daily, Klonopin 0.5 mg p.o. b.i.d. He is ordered to receive meropenem 500 mg IV q.12 hours, Plavix 75 mg p.o. daily, Prozac 20 mg p.o. daily, vancomycin 1 gm IV stat. Additional diagnostic testing and workup will be entertained based on the patient's clinical progress. He is ordered to have an ESR, CBC, blood culture, urine culture, and CRP level done today. Greater than sixty minutes was spent in the care, review of x-rays, labs, orders, and discussion of the above with the patient, co-consultants and nursing. All questions were answered. Ewelina Guthrie MD MTDRamin
[2017-08-28] MEDS: Insulin Reg-MEDIUM-Coverage SC SCH ×4 (08:22→22:00)
[2017-08-28] MEDS: Meloxicam 7.5 MG TAB PO SCH (09:45)
[2017-08-28] MEDS: Meropenem 500 MG in Sodium Chloride 0.9% 100 ML IVPB SCH ×2 (09:46→22:09)
--- NOTE | 2017-08-28 11:31 | PN ---
DATE: 08/28/2017 SUBJECTIVE: The patient is in bed, in no acute distress, nontoxic. PHYSICAL EXAMINATION: VITAL SIGNS: Temperature is 98, blood pressure is 120/60, and respiratory rate of 20. HEENT: Unremarkable. NECK: Supple. LUNGS: Have decreased breath sounds. HEART: Normal S1 and S2. ABDOMEN: Soft and nontender. LABORATORY DATA: Reveals white count of 5.6, hemoglobin of 10, and platelets of 118. Chemistries reveals BUN of 70 and creatinine of 8. Troponin is 0.32. Microbiology is noted to have negative blood cultures and review of orders reveals the patient to be on vancomycin and meropenem. ASSESSMENT AND PLAN: A 67-year-old male with chronic renal failure on hemodialysis, hypertension, diabetes, history of healthcare-associated pneumonia, hyperlipidemia, anemia, and left arm shunt, was admitted with right big toe cellulitis, must rule out underlying peripheral vascular disease progression and must rule out underlying osteomyelitis and the patient is on intermittent vancomycin and meropenem. He should have an MRI of the foot to rule out osteomyelitis. Awaiting for culture results, podiatric and vascular consultation and workup. Jose Miguel Mane MD
--- NOTE | 2017-08-28 14:07 | CP.PCM.PN ---
<Fernandez Villanueva - Last Filed: 08/28/17 16:59> Subjective - Date & Time of Evaluation Date of Evaluation: 08/28/17 Time of Evaluation: 09:10 - Subjective Subjective: Podiatry Progress Note- Dr. Smith 67 y.o male seen at bedside for right foot cellulitis most likely secondary to right hallux onychocryptosis. Patient is seen resting comfortably in bed, in NAD , and AAOx3. Patient reports that his pain has improved as well as the redness in his foot. He denies overnight acute events. He denies n/v/sob/cp/chills/f or d. Patient has no new pedal complaints during this time. Objective - Vital Signs/Intake and Output Vital Signs (last 24 hours): Temp Pulse Resp BP Pulse Ox 97.9 F 86 20 124/68 94 L 08/28/17 06:00 08/28/17 10:00 08/28/17 06:00 08/28/17 06:00 08/28/17 06:00 Intake and Output: 08/28/17 08/28/17 06:59 18:59 Intake Total 240 Output Total 0 Balance 240 - Medications Medications: Current Medications Aspirin (Ecotrin) 81 mg PO DAILY [facility] Last Admin: 08/28/17 09:45 Dose: 81 mg Clonazepam (Klonopin) 0.5 mg PO BID [facility] PRN Reason: Protocol Last Admin: 08/28/17 09:45 Dose: 0.5 mg Clopidogrel Bisulfate (Plavix) 75 mg PO DAILY [facility] Last Admin: 08/28/17 09:46 Dose: 75 mg Fluoxetine HCl (Prozac) 20 mg PO DAILY [facility] Last Admin: 08/28/17 09:46 Dose: 20 mg Meropenem 500 mg/ Sodium (Chloride) 100 mls @ 100 mls/hr IVPB Q12 [facility] PRN Reason: Protocol Stop: 09/05/17 10:01 Last Admin: 08/28/17 09:46 Dose: 100 mls/hr Insulin Human Regular (Humulin R Med) 0 units SC ACHS [facility] Last Admin: 08/28/17 12:43 Dose: 1 units Isosorbide Mononitrate (Imdur) 60 mg PO ACB [facility] Last Admin: 08/28/17 08:22 Dose: 60 mg Meloxicam (Mobic) 7.5 mg PO DAILY [facility] Last Admin: 08/28/17 09:45 Dose: 7.5 mg Mupirocin (Bactroban Ointment) 1 gm TOP BID [facility] Last Admin: 08/28/17 09:46 Dose: 1 applic Oxycodone/Acetaminophen (Percocet 5/325 Mg Tab) 1 tab PO Q8 PRN PRN Reason: Pain, moderate (4-7) Stop: 08/29/17 23:32 Tamsulosin HCl (Flomax) 0.4 mg PO DAILY [facility] Last Admin: 08/28/17 09:45 Dose: 0.4 mg - Labs Labs: 08/27/17 10:49 08/27/17 10:48 PT 13.3 SECONDS (9.4-12.5) H 08/26/17 14:00 INR 1.20 (0.93-1.08) H 08/26/17 14:00 APTT 35.2 Seconds (25.1-36.5) 08/26/17 14:00 - Constitutional Appears: Well, Non-toxic, No Acute Distress - Extremities Exam Additional comments: Focused lower extremity examination: Vasc: Right DP unpalpable, Left DP weakly palpable, PT pulses bilaterally unpalpable, temperature gradient is cool to cool proximal to distal, [employer] delayed to 4 seconds to digits, non pitting edema noted to the right forefoot Ortho: moderate pain with palpation to entire right foot, worse with palpation to the nail plate and medial aspect of hallux- pain has improved significantly Neuro: gross intact, protective sensation diminished bilaterally Derm: onychocryptosis noted to the medial nail border with hyperpigmented callus noted to the upper corner of medial nail folds; hypertrophic nails, yellow discolored toenails with subungal debris x 10 with possible ulceration noted to the medial nail fold, erythema noted to the dorsum of the foot, extending dorsum of digits 1-4 to the midfoot region. No odor, no drainage, no purulence, no abscess, no undermining or tunneling appreciated. - Neurological Exam Neurological Exam: Alert, Awake, Oriented x3 - Psychiatric Exam Psychiatric exam: Normal Affect, Normal Mood Assessment and Plan - Assessment and Plan (Free Text) Assessment: 67 y.o male with DM, renal failure on HD with cellulitis most likely secondary to right hallux onychocryptosis Plan: Patient examined and evaluated Discussed plan in detail with attending Dr. Smith Charts, labs, vitals reviewed (afebrile, WBC=5.6 on 08/27/17) X-rays finals results Impression: No evidence of acute displaced fracture nor dislocation ; rule out the sequela of old trauma base 5th metatarsal. . No definitive cortical destructive changes. There does appear to be mild soft tissue swelling right great toe suggesting cellulitis. Followup MRI recommended to exclude early osteomyelitis which cannot be excluded on this exam if clinically indicated. Extensive vascular calcifications. Ordered MRI of right foot to r/o osteomyelitis Apply bactroban to the right hallux qd ABIs ordered Possible nail avulsion to right hallux pending ABIs results Partial nail avulsion can be done as an outpatient C/w abx per ID Continue pain management per primary Patient will f/u with duct cleaner upon discharge <Caroline Smith - Last Filed: 08/31/17 14:29> Objective - Vital Signs/Intake and Output Vital Signs (last 24 hours): Temp Pulse Resp BP Pulse Ox 97.9 F 87 16 127/85 100 08/31/17 06:00 08/31/17 06:00 08/31/17 06:00 08/31/17 06:00 08/31/17 06:00 Intake and Output: 08/31/17 08/31/17 06:59 18:59 Intake Total 720 420 Balance 720 420 - Medications Medications: Current Medications Aspirin (Ecotrin) 81 mg PO DAILY [facility] Last Admin: 08/31/17 10:17 Dose: 81 mg Cadexomer Iodine (Iodosorb) 0 gm TOP DAILY [facility] Calcium Acetate (Phoslo) 667 mg PO WM [facility] Last Admin: 08/31/17 14:05 Dose: 667 mg Clonazepam (Klonopin) 0.5 mg PO BID [facility] PRN Reason: Protocol Last Admin: 08/31/17 10:18 Dose: 0.5 mg Clopidogrel Bisulfate (Plavix) 75 mg PO DAILY [facility] Last Admin: 08/31/17 10:18 Dose: 75 mg Fluoxetine HCl (Prozac) 20 mg PO DAILY [facility] Last Admin: 08/31/17 10:19 Dose: 20 mg Vancomycin HCl (Vancomycin 1gm) 1 gm in 250 mls @ 167 mls/hr IVPB MWF [facility] PRN Reason: Protocol Last Admin: 08/30/17 16:21 Dose: 167 mls/hr Meropenem 500 mg/ Sodium (Chloride) 100 mls @ 100 mls/hr IVPB QPM [facility] PRN Reason: Protocol Stop: 09/05/17 22:01 Insulin Human Regular (Humulin R Med) 0 units SC ACHS [facility] Last Admin: 08/31/17 11:28 Dose: 1 units Isosorbide Mononitrate (Imdur) 60 mg PO ACB [facility] Last Admin: 08/31/17 10:19 Dose: 60 mg Mupirocin (Bactroban Ointment) 1 gm TOP BID [facility] Last Admin: 08/31/17 10:19 Dose: Not Given Oxycodone/Acetaminophen (Percocet 5/325 Mg Tab) 1 tab PO Q6H PRN PRN Reason: Pain, moderate (4-7) Stop: 09/03/17 10:50 Last Admin: 08/31/17 11:22 Dose: 1 tab Tamsulosin HCl (Flomax) 0.4 mg PO DAILY [facility] Last Admin: 08/31/17 10:17 Dose: 0.4 mg - Labs Labs: 08/30/17 06:00 08/30/17 06:00 PT 13.3 SECONDS (9.4-12.5) H 08/26/17 14:00 INR 1.20 (0.93-1.08) H 08/26/17 14:00 APTT 35.2 Seconds (25.1-36.5) 08/26/17 14:00 Attending/Attestation - Attestation I have personally seen and examined this patient.: Yes I have fully participated in the care of the patient.: Yes I have reviewed all pertinent clinical information, including history, physical exam and plan: Yes
--- NOTE | 2017-08-28 22:22 | CON ---
CARDIAC EVALUATION DATE: 08/28/2017 History of coronary artery disease, history of peripheral arterial disease, admitted with right toe wound. Denies any chest pain. BRIEF CLINICAL HISTORY: A 67-year-old male with past medical history significant for coronary artery disease, status post PTCA of LAD on 08/20/2014, and staged PTCA of circumflex in OM1 and OM2 on 08/22/2014, diabetes, hypertension, hyperlipidemia, end-stage renal disease, dialysis at [facility] [place] on Monday, Monday, and Monday, status post recently left SFA stent was done and left SFA atherectomy with a drug-coated balloon was done. Complaining of right toenail and right toe infection. Denies any chest pain. Denies shortness of breath. Denies any palpitations. PAST MEDICAL HISTORY: Significant for coronary artery disease as mentioned status post PTCA of LAD with a drug-eluting stent on 08/20/2014, status post PTCA of circumflex OM1 and OM2 on 08/22/2014, last catheterization on 03/26/2015, patent stent and medical treatment recommended. The patient had recently peripheral intervention done on 08/10/2017, with PTCA of left SFA with CSI and drug-coated balloon was done. Prior to that the patient had right SFA atherectomy and drug-coated balloon was done on 07/13/2017. History of end-stage renal disease, on dialysis. CURRENT MEDICATION: The patient is taking oxycodone, insulin, Flomax, isosorbide, lisinopril, and Coreg. REVIEW OF SYSTEMS: As per HPI. ALLERGIES: NO KNOWN DRUG ALLERGIES. PHYSICAL EXAMINATION: VITAL SIGNS: Temperature afebrile, heart rate 66, blood pressure 124/68. HEENT: PERRLA. Extraocular muscles intact. NECK: Supple. No carotid bruits or thyromegaly. CHEST: Clear to auscultation. HEART: S1 and S2 regular. ABDOMEN: Soft. EXTREMITIES: Clubbing and cyanosis negative. LABORATORY DATA: Blood workup as follows WBC 5.6, hemoglobin 10.3, hematocrit 33.3 and platelet count 118. Chemistry shows sodium 130, potassium 4.3, chloride 98, carbon dioxide 25, anion gap of 19, BUN 70 and creatinine 8.0. IMPRESSION: Nonhealing ulcer on the right big toe, nail bed infection, severe peripheral arterial disease, coronary artery disease, status post recently peripheral intervention done on 08/10/2017 of left superficial femoral artery atherectomy with a drug-coated balloon status post right superficial femoral artery drug coated balloon on 07/08/2014, end-stage renal disease on dialysis, history of percutaneous transluminal coronary angioplasty on left anterior descending on 08/20/2014, and staged percutaneous transluminal coronary angioplasty of obtuse marginal circumflex on 08/22/2014, last catheterization was 03/26/2015 for patent stent, end-stage renal disease, on dialysis. RECOMMENDATIONS: Continue aggressive medical treatment. Continue aspirin and continue Plavix. We will get RODNEY, PVR, and continue podiatry followup. We will follow with you. Thank you Dr. Oakley for providing us the opportunity in taking care of the patient, Jf Sifuentessorenchace. Katharina Tejeda MD
--- NOTE | 2017-08-28 22:48 | CP.PCM.PN ---
Subjective - Date & Time of Evaluation Date of Evaluation: 08/27/17 Time of Evaluation: 13:00 - Subjective Subjective: 08/27/2017 SUBJECTIVE: Mr. Amos is a 67-year-old male sent to the ED from Wound Care Department. From Wound Care, he was complaining of right great toe pain for past 3 weeks. He also was found to be hypotensive in the ER with 80 systolic blood pressure. He underwent dialysis for end-stage renal disease yesterday. He denies any fever or cough with expectoration. No chest pain. No shortness of breath. He has COPD, no recent exacerbation, end-stage renal disease on hemodialysis. He also has diabetes mellitus type 2, well controlled on currently medications. Complaining of pain right foot. he was dialysed today. PAST MEDICAL HISTORY: Diabetes mellitus type 2, end-stage renal disease, on hemodialysis, history of hypotension, post dialysis previously also BPH. PAST SURGICAL HISTORY: Shunt in left arm. PERSONAL HISTORY: No history of alcohol abuse, former smoker. FAMILY HISTORY: Noncontributory. SOCIAL HISTORY: Lives at home. ALLERGIES: NO KNOWN DRUG ALLERGIES. MEDICATIONS: Albuterol p.r.n., Klonopin 0.5 mg p.o. b.i.d., aspirin 81 mg daily, Coreg 25 mg p.o. b.i.d., Imdur 60 mg p.o. daily, lisinopril 40 mg daily, omeprazole 20 mg daily, calcium daily, Levemir 67 units p.r.n., Meloxicam p.r.n., cephalexin t.i.d., and Percocet p.r.n. for pain. REVIEW OF SYSTEMS: As per HPI. Rest of 12-point review of systems reviewed negative. PHYSICAL EXAMINATION GENERAL: Comfortable in bed, in no acute distress. VITAL SIGNS: reviewed. HEENT: Pallor positive. NECK: Supple. CHEST: Air entry present equal and bilateral. No added sounds. CARDIOVASCULAR EXAM: S1 and S2 normal. No murmur and no gallop. EXTREMITIES: Erythema, discoloration of the right extending into the dorsum of the right foot. SKIN: Warm and dry. No rashes. SPINE: Nontender. LABORATORY DATA: White count 6.2, hemoglobin 10.9, hematocrit 35.6, MCV 98, platelet count 140. Granulocyte 59%, lymphocyte 20%, monocyte 6.9%, eosinophil 12.5%. PT 13.3, INR 1.2. Sodium 138, potassium 4.3, creatinine 7 and glucose 253. Troponin 0.38. Bilirubin 0.9. ASSESSMENT: 1. Hypotension. 2. End-stage renal disease, on hemodialysis. 3. Non-ST elevation myocardial infarction. 4. Chronic anemia. 5. Diabetes mellitus type 2. PLAN: Hypotension resolved. On IV antibiotics meropenem. Circulation of foot need to be assessed. Oestomyelitis to be ruled out. MRI of foot. Percocet prn for pain. Continue aspirin, plavix. Dr. Cassidy, Dr. Boyd consult appreciated. Note reviewed. Blood counts stable. Poonam Oakley MD Objective - Vital Signs/Intake and Output Vital Signs (last 24 hours): Temp Pulse Resp BP Pulse Ox 98.4 F 87 18 114/79 100 08/28/17 18:00 08/28/17 18:00 08/28/17 18:00 08/28/17 18:00 08/28/17 18:00 Intake and Output: 08/28/17 08/29/17 18:59 06:59 Intake Total 360 Output Total 0 Balance 360 - Medications Medications: Current Medications Aspirin (Ecotrin) 81 mg PO DAILY [facility] Last Admin: 08/28/17 09:45 Dose: 81 mg Clonazepam (Klonopin) 0.5 mg PO BID [facility] PRN Reason: Protocol Last Admin: 08/28/17 17:14 Dose: 0.5 mg Clopidogrel Bisulfate (Plavix) 75 mg PO DAILY [facility] Last Admin: 08/28/17 09:46 Dose: 75 mg Fluoxetine HCl (Prozac) 20 mg PO DAILY [facility] Last Admin: 08/28/17 09:46 Dose: 20 mg Meropenem 500 mg/ Sodium (Chloride) 100 mls @ 100 mls/hr IVPB Q12 [facility] PRN Reason: Protocol Stop: 09/05/17 10:01 Last Admin: 08/28/17 22:09 Dose: 100 mls/hr Insulin Human Regular (Humulin R Med) 0 units SC ACHS [facility] Last Admin: 08/28/17 22:00 Dose: Not Given Isosorbide Mononitrate (Imdur) 60 mg PO ACB [facility] Last Admin: 08/28/17 08:22 Dose: 60 mg Meloxicam (Mobic) 7.5 mg PO DAILY [facility] Last Admin: 08/28/17 09:45 Dose: 7.5 mg Mupirocin (Bactroban Ointment) 1 gm TOP BID [facility] Last Admin: 08/28/17 17:17 Dose: 1 applic Oxycodone/Acetaminophen (Percocet 5/325 Mg Tab) 1 tab PO Q8 PRN PRN Reason: Pain, moderate (4-7) Stop: 08/29/17 23:32 Tamsulosin HCl (Flomax) 0.4 mg PO DAILY [facility] Last Admin: 08/28/17 09:45 Dose: 0.4 mg - Labs Labs: 08/27/17 10:49 08/27/17 10:48 PT 13.3 SECONDS (9.4-12.5) H 08/26/17 14:00 INR 1.20 (0.93-1.08) H 08/26/17 14:00 APTT 35.2 Seconds (25.1-36.5) 08/26/17 14:00
--- NOTE | 2017-08-28 22:52 | CP.PCM.PN ---
Subjective - Date & Time of Evaluation Date of Evaluation: 08/28/17 Time of Evaluation: 14:00 - Subjective Subjective: 08/28/2017 SUBJECTIVE: Mr. Amos is a 67-year-old male sent to the ED from Wound Care Department. From Wound Care, he was complaining of right great toe pain for past 3 weeks. He also was found to be hypotensive in the ER with 80 systolic blood pressure. He underwent dialysis for end-stage renal disease yesterday. He denies any fever or cough with expectoration. No chest pain. No shortness of breath. He has COPD, no recent exacerbation, end-stage renal disease on hemodialysis. He also has diabetes mellitus type 2, well controlled on currently medications. Complaining of pain right foot improved. redness right foot decreased. . PAST MEDICAL HISTORY: Diabetes mellitus type 2, end-stage renal disease, on hemodialysis, history of hypotension, post dialysis previously also BPH. PAST SURGICAL HISTORY: Shunt in left arm. PERSONAL HISTORY: No history of alcohol abuse, former smoker. FAMILY HISTORY: Noncontributory. SOCIAL HISTORY: Lives at home. ALLERGIES: NO KNOWN DRUG ALLERGIES. MEDICATIONS: Albuterol p.r.n., Klonopin 0.5 mg p.o. b.i.d., aspirin 81 mg daily, Coreg 25 mg p.o. b.i.d., Imdur 60 mg p.o. daily, lisinopril 40 mg daily, omeprazole 20 mg daily, calcium daily, Levemir 67 units p.r.n., Meloxicam p.r.n., cephalexin t.i.d., and Percocet p.r.n. for pain. REVIEW OF SYSTEMS: As per HPI. Rest of 12-point review of systems reviewed negative. PHYSICAL EXAMINATION GENERAL: Comfortable in bed, in no acute distress. VITAL SIGNS: reviewed. HEENT: Pallor positive. NECK: Supple. CHEST: Air entry present equal and bilateral. No added sounds. CARDIOVASCULAR EXAM: S1 and S2 normal. No murmur and no gallop. EXTREMITIES: Erythema, discoloration of the right extending into the dorsum of the right foot- improved. . SKIN: Warm and dry. No rashes. SPINE: Nontender. LABORATORY DATA: reviewed. ASSESSMENT: 1. Hypotension. 2. End-stage renal disease, on hemodialysis. 3. Non-ST elevation myocardial infarction. 4. Chronic anemia. 5. Diabetes mellitus type 2. PLAN: Hypotension resolved. On IV antibiotics meropenem. Circulation of foot need to be assessed. Oestomyelitis to be ruled out. MRI of foot pending. Percocet prn for pain. Continue aspirin, plavix. Hb/hct stable. Encouraged ambulation. Poonam Oakley MD Objective - Vital Signs/Intake and Output Vital Signs (last 24 hours): Temp Pulse Resp BP Pulse Ox 98.4 F 87 18 114/79 100 08/28/17 18:00 08/28/17 18:00 08/28/17 18:00 08/28/17 18:00 08/28/17 18:00 Intake and Output: 08/28/17 08/29/17 18:59 06:59 Intake Total 360 Output Total 0 Balance 360 - Medications Medications: Current Medications Aspirin (Ecotrin) 81 mg PO DAILY [facility] Last Admin: 08/28/17 09:45 Dose: 81 mg Clonazepam (Klonopin) 0.5 mg PO BID [facility] PRN Reason: Protocol Last Admin: 08/28/17 17:14 Dose: 0.5 mg Clopidogrel Bisulfate (Plavix) 75 mg PO DAILY [facility] Last Admin: 08/28/17 09:46 Dose: 75 mg Fluoxetine HCl (Prozac) 20 mg PO DAILY [facility] Last Admin: 08/28/17 09:46 Dose: 20 mg Meropenem 500 mg/ Sodium (Chloride) 100 mls @ 100 mls/hr IVPB Q12 [facility] PRN Reason: Protocol Stop: 09/05/17 10:01 Last Admin: 08/28/17 22:09 Dose: 100 mls/hr Insulin Human Regular (Humulin R Med) 0 units SC ACHS [facility] Last Admin: 08/28/17 22:00 Dose: Not Given Isosorbide Mononitrate (Imdur) 60 mg PO ACB [facility] Last Admin: 08/28/17 08:22 Dose: 60 mg Meloxicam (Mobic) 7.5 mg PO DAILY [facility] Last Admin: 08/28/17 09:45 Dose: 7.5 mg Mupirocin (Bactroban Ointment) 1 gm TOP BID [facility] Last Admin: 08/28/17 17:17 Dose: 1 applic Oxycodone/Acetaminophen (Percocet 5/325 Mg Tab) 1 tab PO Q8 PRN PRN Reason: Pain, moderate (4-7) Stop: 08/29/17 23:32 Tamsulosin HCl (Flomax) 0.4 mg PO DAILY [facility] Last Admin: 08/28/17 09:45 Dose: 0.4 mg - Labs Labs: 08/27/17 10:49 08/27/17 10:48 PT 13.3 SECONDS (9.4-12.5) H 08/26/17 14:00 INR 1.20 (0.93-1.08) H 08/26/17 14:00 APTT 35.2 Seconds (25.1-36.5) 08/26/17 14:00
[2017-08-29 07:25] LABS: BASO # 0.07 K/mm3 (0.0-2.0); BASO % 1.2 % (0.0-3.0); EOS % 17.3 % (1.5-5.0); GRAN # 3.2 (1.4-6.5); GRAN % 53.8 % (50.0-68.0); HEMOGLOBIN 10.2 g/dL (14.0-18.0); LYMPH # 1.2 (1.2-3.4); LYMPH % 19.3 % (22.0-35.0); MEAN CELL VOLUME 97.7 fl (80.0-105.0); MEAN CORPUSCULAR HEMOGLOBIN 29.4 pg (25.0-35.0); MEAN CORPUSCULAR HGB CONC 30.1 g/dl (31.0-37.0); MEAN PLATELET VOLUME 13.7 fl (7.0-11.0); MONO # 0.5 (0.1-0.6); MONO % 8.4 % (1.0-6.0); RBC 3.47 10^6/uL (3.5-6.1); RED CELL DISTRIBUTION WIDTH 14.2 % (11.5-14.5)
[2017-08-29 07:32] LABS: ALB/GLOB RATIO 1.1 (1.1-1.8); ALBUMIN 3.4 g/dL (3.0-4.8); CALCIUM 8.9 mg/dL (8.4-10.5); MAGNESIUM 2.1 mg/dL (1.7-2.2)
--- NOTE | 2017-08-29 08:12 | PN ---
DATE: 08/28/2017 SUBJECTIVE: This 67-year-old male was examined at his bedside. His case was reviewed with his registered nurse, Lilian Rodriguez. The patient remains in a normal sinus rhythm on the teletypesetter monitor. He denies fever, chills, chest pain, or shortness of breath. He was seen by the Podiatry team earlier today. It is their impression that he has a right foot cellulitis involving his right great toe and forefoot on the basis of an ingrown toenail that will require toenail removal once vascular status is clarified. The patient has been ordered to have arterial Dopplers of his lower extremities. This testing has not been completed at present. Also, he has been seen by Infectious Disease and been placed on antibiotic therapy including meropenem and IV vancomycin and MRI has not yet been requested by Dr. Mane. PHYSICAL EXAMINATION: VITAL SIGNS: youth nutritional monitor, normal sinus rhythm. Temperature 97.9, respirations 20, pulse 86, blood pressure 124/68, pulse ox 94% on room air. HEENT: Head: Normocephalic, atraumatic. Eyes: No icterus. Ears: Clear. Throat: Noninjected. NECK: Supple. HEART: Regular S1, S2. LUNGS: Clear. ABDOMEN: Soft. EXTREMITIES: No edema. Right foot dressing intact, clean, and dry. VASCULAR: Legs, warm to touch. PSYCHOLOGICAL: Alert. NEUROLOGICAL: Grossly intact. LABORATORY DATA: White count 5600, hemoglobin 10.3, hematocrit 33.3, platelets 118,000. PT/INR 1.20, PTT 35.2. Sodium 138, K 4.7, chloride 98, bicarb 25, BUN 70, creatinine 8.0, random blood sugar 157. C-reactive protein, high, 13.9. Right foot x-ray reviewed, no obvious fracture, but soft tissue swelling surrounding his right great toe raising suspicion of cellulitis. Chest x-ray showed no active infiltrate, no obvious CHF. IMPRESSION: This is a 67-year-old male with right toe cellulitis, rule out osteomyelitis; ingrown toenail, rule out peripheral vascular disease; end-stage renal disease, hemodialysis dependent; history of benign prostate hypertrophy; insulin-dependent diabetes mellitus; stable atherosclerotic heart disease; anxiety neurosis; degenerative arthritis. PLAN: At present, as discussed with patient at bedside will be to obtain duplex lower extremity arterial ultrasound testing to rule out peripheral artery disease. He continues on renal diabetic diet and we will continue hemodialysis scheduling Monday, Monday, Monday. He will continue on medication including Prozac, Plavix, meropenem, Klonopin, Imdur, Humulin insulin coverage, Flomax, Ecotrin, and Bactroban ointment topically to his right great toe with a dry sterile dressing under the direction of Podiatry. He is ordered to have a CBC and TSH, phosphorous and magnesium level along with hemoglobin A1c, and lipid panel and comprehensive metabolic panel for the a.m. Blood cultures showed no growth to date and nursing staff has been instructed to discuss if the patient requires any further testing including MRI of his right foot with Dr. Mane from Infectious Disease. Approximately 35 minutes was spent in the care, review of x-rays, labs, medication, and orders and consultative reports with this patient today. All questions were answered. Ewelina Guthrie MD MTDD
--- NOTE | 2017-08-29 10:33 | MRI ---
PROCEDURE: MRI of the right foot without contrast HISTORY: r/o right hallux osteomyelitis COMPARISON: TECHNIQUE: MRI of the right foot was performed in multiple planes using multiple pulse sequences. FINDINGS: There is minimal marrow edema in the 1st distal phalanx consistent with the clinical history of osteomyelitis. Soft tissue edema is also seen. The findings are best seen on sagittal image 21 series 7. The remainder the foot is unremarkable. The metatarsals show a normal signal intensity. IMPRESSION: There is minimal marrow edema in the 1st distal phalanx consistent with the clinical history of osteomyelitis. Soft tissue edema is also seen.
[2017-08-29] MEDS: Insulin Reg-MEDIUM-Coverage SC SCH ×4 (10:49→22:13)
[2017-08-29] MEDS: Meloxicam 7.5 MG TAB PO SCH (11:02)
[2017-08-29] MEDS: Meropenem 500 MG in Sodium Chloride 0.9% 100 ML IVPB SCH ×2 (11:02→22:58)
--- NOTE | 2017-08-29 15:36 | PN ---
DATE: SUBJECTIVE: A 67-year-old male seen at bedside for continued evaluation and management of cellulitis of his right foot secondary to an ingrowing right great toenail. The patient is seen in bed resting comfortably with no complaints. He states he feels much better. OBJECTIVE: VITAL SIGNS: Revealed temperature of 97.4, pulse rate of 79, blood pressure of 124/91, and respiratory rate of 18. EXTREMITIES: Nonpalpable posterior tibial pulses and nonpalpable dorsalis pedis pulses noted bilaterally. Temperature gradient is reversed. Capillary filling time is delayed. Right foot forefoot presents with nonpitting edema. Sensation is grossly diminished bilaterally. A medial nail border of the right great toe presents with onychocryptosis. There is no pain upon palpation and the area remains edematous and erythematous. The area was covered with coagulated blood. There was noted to be no purulence, no drainage, no malodor, no abscess formation and no probing to bone. LABORATORY FINDINGS: Reveal white count of 6, hemoglobin of 10.2, hematocrit of 33.9, and platelet count of 108. His ESR is 35. Most recent blood culture reveals no growth after 48 hours. Right foot x-rays taken on 08/26/2017 reveals soft tissue swelling on the right great toe, which is suggestive of cellulitis, but really acute osteomyelitis could not be ruled out. MRI taken today of the right foot shows marrow edema in the first distal phalanx, consistent with osteomyelitis. ASSESSMENT: A 67-year-old diabetic male with end-stage renal disease on hemodialysis, seen with probable osteomyelitis of the right distal phalanx secondary to ingrown toenail. PLAN: Arterial Dopplers were ordered, however, the results have not been dictated. Called vascular lab and consult for Dr. Blane Gonzalez to evaluate arterial Doppler results. Hypercoagulated blood on the right great toe was excessively debrided and the wound was cleansed with normal sterile saline and application of Iodosorb cream and a dry sterile dressing was applied. I spoke with Jf concerning the bone infection on his great toe. The standard of care is 4-6 weeks of IV antibiotics to eradicate his infection, which was caused by an ingrown toenail. Dr. Mane's note was read and appreciated. The patient will be seen and followed daily. We will await vascular consultation and Infectious Disease input. Dylon Vargas DPM [facility] # [id number]
--- NOTE | 2017-08-29 18:09 | PN ---
DATE: 08/29/2017 REASON FOR CONSULTATION AND FOLLOWUP: History of PAD, status post bilateral SFA atherectomy and drug-coated balloon, admitted with toe infection and cardiac evaluation. SUBJECTIVE: The patient denies any chest pain, shortness of breath. Complains of right big toe hurting. PHYSICAL EXAMINATION: VITAL SIGNS: As follows, temperature afebrile, heart rate 86, blood pressure 110/68. HEENT: PERRLA intact. NECK: Supple. No carotid bruits or thyromegaly. CHEST: Clear to auscultation. HEART: S1 and S2 regular. ABDOMEN: Soft. EXTREMITIES: Clubbing and cyanosis negative. LABORATORY DATA: Blood workup as follows, WBC 6, hemoglobin 10, hematocrit 33.9, and platelet count 108. Chemistry showed sodium 140, potassium 4.2, chloride ____, anion gap of 18, BUN 69, and creatinine 7.6. IMPRESSION: Right toe infection, rule out osteomyelitis. Magnetic resonance imaging done, awaiting for the official reading to be done. Coronary artery disease, status post percutaneous transluminal coronary angioplasty of left anterior descending on 08/20/2014, status post percutaneous transluminal coronary angioplasty of circumflex, obtuse marginal 1 and obtuse marginal 2 on 08/22/2014. Repeat computerized axial tomography in 02/2015, patent stent, status post percutaneous transluminal coronary angioplasty of right superficial femoral artery on 07/13/2012 and then left superficial femoral artery on 08/10/2017. End-stage renal disease, on dialysis. RECOMMENDATIONS: Follow up RODNEY, PVR. Continue interim aspirin and Plavix. Continue dialysis. We will follow with you. Thank you Dr. Agarwal for providing us the opportunity in taking care of the [facility]. Katharina Tejeda MD
--- NOTE | 2017-08-29 18:46 | US ---
PROCEDURE: Lower extremity RODNEY exam HISTORY: Peripheral vascular disease with pain and ulceration. Diabetes. Previous smoker PHYSICIAN(S): Blane Gonzalez MD. FINDINGS: The exam is limited by calcified noncompressible vessels at multiple levels. The right resting RODNEY is normal, 1.05. The left resting RODNEY is not obtainable. The high thigh pressures are noncompressible. The high thigh PVR waveforms are relatively normal and some The left calf PVR waveform is normal. The left calf PVR waveform augments normally. The right calf PVR waveform is decreased in amplitude compared the left. The right calf PVR waveform does not augment. Is consistent with right SFA occlusive disease. The ankle PVR waveforms are pulsatile and relatively symmetric. The metatarsal PVR waveforms are moderately blunted. This could represent pedal occlusive disease IMPRESSION: 1. Limited study due to calcified vessels. 2. Possible right SFA occlusive disease. 3. Possible bilateral pedal occlusive disease versus vasoconstriction
--- NOTE | 2017-08-29 18:49 | CP.PCM.PN ---
Subjective - Date & Time of Evaluation Date of Evaluation: 08/29/17 Time of Evaluation: 11:20 - Subjective Subjective: Comfortable, still with some pain in the right big toe, no fevers overnight. Objective - Vital Signs/Intake and Output Vital Signs (last 24 hours): Temp Pulse Resp BP Pulse Ox 98 F 81 18 128/98 H 100 08/29/17 18:00 08/29/17 18:00 08/29/17 18:00 08/29/17 18:00 08/29/17 18:00 Intake and Output: 08/29/17 08/29/17 06:59 18:59 Intake Total 400 540 Output Total 0 0 Balance 400 540 - Medications Medications: Current Medications Aspirin (Ecotrin) 81 mg PO DAILY [facility] Last Admin: 08/29/17 11:01 Dose: 81 mg Calcium Acetate (Phoslo) 667 mg PO WM [facility] Clonazepam (Klonopin) 0.5 mg PO BID [facility] PRN Reason: Protocol Last Admin: 08/29/17 17:59 Dose: 0.5 mg Clopidogrel Bisulfate (Plavix) 75 mg PO DAILY [facility] Last Admin: 08/29/17 11:04 Dose: 75 mg Fluoxetine HCl (Prozac) 20 mg PO DAILY [facility] Last Admin: 08/29/17 11:02 Dose: 20 mg Meropenem 500 mg/ Sodium (Chloride) 100 mls @ 100 mls/hr IVPB Q12 [facility] PRN Reason: Protocol Stop: 09/05/17 10:01 Last Admin: 08/29/17 11:02 Dose: 100 mls/hr Insulin Human Regular (Humulin R Med) 0 units SC ACHS [facility] Last Admin: 08/29/17 17:58 Dose: 1 units Isosorbide Mononitrate (Imdur) 60 mg PO ACB [facility] Last Admin: 08/29/17 17:59 Dose: 60 mg Meloxicam (Mobic) 7.5 mg PO DAILY [facility] Last Admin: 08/29/17 11:02 Dose: 7.5 mg Mupirocin (Bactroban Ointment) 1 gm TOP BID [facility] Last Admin: 08/29/17 17:59 Dose: 1 applic Oxycodone/Acetaminophen (Percocet 5/325 Mg Tab) 1 tab PO Q8 PRN PRN Reason: Pain, moderate (4-7) Stop: 08/29/17 23:32 Last Admin: 08/29/17 00:13 Dose: 1 tab Tamsulosin HCl (Flomax) 0.4 mg PO DAILY [facility] Last Admin: 08/29/17 11:03 Dose: 0.4 mg - Labs Labs: 08/29/17 06:30 08/29/17 06:30 PT 13.3 SECONDS (9.4-12.5) H 08/26/17 14:00 INR 1.20 (0.93-1.08) H 08/26/17 14:00 APTT 35.2 Seconds (25.1-36.5) 08/26/17 14:00 - Constitutional Appears: Non-toxic - Head Exam Head Exam: NORMAL INSPECTION - ENT Exam ENT Exam: Mucous Membranes Moist - Neck Exam Neck Exam: absent: Meningismus - Respiratory Exam Respiratory Exam: Decreased Breath Sounds - Cardiovascular Exam Cardiovascular Exam: +S1, +S2 - GI/Abdominal Exam GI & Abdominal Exam: Soft. absent: Tenderness - Extremities Exam Additional comments: right big toe with decreased swelling Assessment and Plan - Assessment and Plan (Free Text) Plan: Assessment right hallux distal phalanx osteomyelitis with cellulitis ESRD on HD with left arm AV shunt DM HTN dyslipidemia Plan Currently on intermittent Vancomycin and Merrem - will need 4-6 weeks of antibiotics with weekly ESR, CRP, CBC, CMP, Vanco trough while on antibiotics - can substitute Ertapenem 500 mg daily, with Vancomycin 500 mg IV every dialysis session
--- NOTE | 2017-08-30 00:29 | PN ---
DATE: 08/29/2017 SUBJECTIVE: He is comfortable in bed in no acute distress, right foot swelling and pain decreased markedly. He is currently on IV antibiotics. MRI done of the right foot showed osteomyelitis of the greater toe. He has end stage renal disease, currently on hemodialysis. He has diabetes mellitus type 2 uncontrolled on current medications. He is able to ambulate with support. REVIEW OF SYSTEMS: As per HPI. Rest of 12-point review of systems is reviewed and negative. CURRENT MEDICATIONS: Aspirin 81 mg daily, PhosLo 3 times a week, clonazepam 0.5 mg p.o. b.i.d., Plavix 75 mg daily, Prozac 20 mg daily, insulin sliding scale, Imdur 60 mg daily, Mobic 7.5 mg daily, meropenem, vancomycin, Percocet p.r.n. for pain, and Flomax 0.5 mg daily. LABORATORY DATA: White count 6, hemoglobin 10.2, hematocrit 33.9, and platelet count 108. Sodium 141, potassium 4.1, BUN 67, creatinine 7.6, bilirubin 0.8, and alkaline phosphatase 163. ASSESSMENT: 1. Osteomyelitis, right great toe. 2. Endstage renal disease, on hemodialysis. 3. Chronic anemia. 4. Diabetes mellitus type 2. PLAN: He will need IV antibiotics for four to six weeks, vancomycin and meropenem. PICC line will be scheduled for antibiotics. Podiatry, Dr. Smith following. ID, Dr. Mane, following. Hemoglobin and hematocrit stable. He continues to be on hemodialysis for endstage renal disease. Poonam Oakley MD
[2017-08-30 07:21] LABS: HEMOGLOBIN 10.2 g/dL (14.0-18.0); MEAN CELL VOLUME 96.8 fl (80.0-105.0); MEAN CORPUSCULAR HEMOGLOBIN 29.9 pg (25.0-35.0); MEAN CORPUSCULAR HGB CONC 30.9 g/dl (31.0-37.0); MEAN PLATELET VOLUME 13.1 fl (7.0-11.0); RBC 3.41 10^6/uL (3.5-6.1); WHITE BLOOD COUNT 6.2 10^3/ul (4.5-11.0)
[2017-08-30 07:30] LABS: ALB/GLOB RATIO 1.1 (1.1-1.8); ALBUMIN 3.4 g/dL (3.0-4.8); CALCIUM 9.1 mg/dL (8.4-10.5)
[2017-08-30] MEDS: Insulin Reg-MEDIUM-Coverage SC SCH ×4 (08:00→22:24)
[2017-08-30 08:21] VITALS: RESP 16
--- NOTE | 2017-08-30 08:36 | PN ---
DATE: 08/29/2017 SUBJECTIVE: This 67-year-old male was examined in his room. He is being readied for dialysis tomorrow. He remains hospitalized with a right toe infection that on MRI appears consistent with osteomyelitis. He is being followed by Podiatry and Infectious Disease and is currently receiving meropenem 500 mg IV q. 12. The patient denies fever, chills, chest pain or shortness of breath and remains in normal sinus rhythm on the cafeteria monitor. PHYSICAL EXAMINATION: VITAL SIGNS: Temperature 97.4, respirations 18, pulse 79, blood pressure 124/91. Pulse ox 96% room air. HEENT: Head: Normocephalic, atraumatic. Eyes: No icterus. Ears: Clear. Throat: Noninjected. NECK: Supple. HEART: Regular S1, S2. LUNGS: Clear. ABDOMEN: Soft. EXTREMITIES: No edema. SKIN: Without rash. NEUROLOGICAL: Intact. PSYCHOLOGICAL: Alert. VASCULAR: Legs warm to touch. IMPRESSION: A 67-year-old male with right toe osteomyelitis; comorbidities of end-stage renal disease, hemodialysis dependent; benign prostate hypertrophy; insulin-dependent diabetes mellitus; stable atherosclerotic heart disease; chronic anxiety and depression. PLAN: Plan is to await results of lower extremity arterial Dopplers to ensure adequacy of vascular circulation. He continues on Prozac, Plavix, PhosLo, meropenem, Klonopin, Imdur, insulin, Flomax, Ecotrin and Bactroban to the right toe and podiatric wound dressings daily. Of note, blood culture showed no growth at 72 hours. Patient will be scheduled for hemodialysis and repeat comprehensive metabolic and CBC panels in the a.m. Decision regarding toenail removal and antibiotic course will be decided by Podiatry and Infectious Disease. All of the above was reviewed in detail with the patient at his bedside. Ewelina Guthrie MD [facility]
--- NOTE | 2017-08-30 09:16 | PN ---
DATE: SUBJECTIVE: The patient has no complaints. PHYSICAL EXAMINATION: VITAL SIGNS: Temperature is 98, pulse of 81, blood pressure 128/98, and respirations 18. GENERAL: The patient is lying in bed, flat, comfortable. HEENT: No oral lesion. Anicteric sclerae. Moist mucosa. NECK: No JVD, adenopathy, or thyromegaly. CARDIOVASCULAR: S1 and S2, regular. No murmurs, rubs, or gallops. LUNGS: Clear to auscultation bilaterally. No wheeze, rales, or rhonchi. ABDOMEN: Bowel sounds are positive, soft, nontender and nondistended. EXTREMITIES: No cyanosis, clubbing or edema. LABORATORY DATA: Labs have been reviewed. ASSESSMENT: 1. Osteomyelitis of right toe. 2. End-stage renal disease on hemodialysis. 3. Chronic anemia. 4. Secondary hyperparathyroidism. 5. Diabetes type 2. PLAN: The patient is currently on aspirin daily. He is on dialysis, this will be continued. He is receiving meropenem for antibiotics. I appreciate input from Infectious Disease and from Podiatry. The patient is getting evaluation for peripheral arterial disease. The patient is on Plavix for this. He is on PhosLo. The patient is going to be on vancomycin for his antibiotics. He is on renal diet. Maurice Agarwal MD
--- NOTE | 2017-08-30 16:15 | CP.PCM.PN ---
Subjective - Date & Time of Evaluation Date of Evaluation: 08/30/17 Time of Evaluation: 12:10 - Subjective Subjective: Less pain the right big toe, no fevers overnight, not in distress. Objective - Vital Signs/Intake and Output Vital Signs (last 24 hours): Temp Pulse Resp BP Pulse Ox 97.7 F 84 16 129/90 199 H 08/30/17 08:00 08/30/17 08:00 08/30/17 08:00 08/30/17 08:00 08/30/17 08:00 Intake and Output: 08/30/17 08/30/17 06:59 18:59 Intake Total 120 Balance 120 - Medications Medications: Current Medications Aspirin (Ecotrin) 81 mg PO DAILY [facility] Last Admin: 08/29/17 11:01 Dose: 81 mg Calcium Acetate (Phoslo) 667 mg PO WM [facility] Clonazepam (Klonopin) 0.5 mg PO BID [facility] PRN Reason: Protocol Last Admin: 08/29/17 17:59 Dose: 0.5 mg Clopidogrel Bisulfate (Plavix) 75 mg PO DAILY [facility] Last Admin: 08/29/17 11:04 Dose: 75 mg Fluoxetine HCl (Prozac) 20 mg PO DAILY [facility] Last Admin: 08/29/17 11:02 Dose: 20 mg Meropenem 500 mg/ Sodium (Chloride) 100 mls @ 100 mls/hr IVPB Q12 [facility] PRN Reason: Protocol Stop: 09/05/17 10:01 Last Admin: 08/29/17 22:58 Dose: 100 mls/hr Vancomycin HCl (Vancomycin 1gm) 1 gm in 250 mls @ 167 mls/hr IVPB MWF [facility] PRN Reason: Protocol Insulin Human Regular (Humulin R Med) 0 units SC ACHS [facility] Last Admin: 08/30/17 08:00 Dose: Not Given Isosorbide Mononitrate (Imdur) 60 mg PO ACB [facility] Last Admin: 08/29/17 17:59 Dose: 60 mg Meloxicam (Mobic) 7.5 mg PO DAILY [facility] Last Admin: 08/29/17 11:02 Dose: 7.5 mg Mupirocin (Bactroban Ointment) 1 gm TOP BID [facility] Last Admin: 08/29/17 17:59 Dose: 1 applic Tamsulosin HCl (Flomax) 0.4 mg PO DAILY [facility] Last Admin: 08/29/17 11:03 Dose: 0.4 mg - Labs Labs: 08/30/17 06:00 08/30/17 06:00 PT 13.3 SECONDS (9.4-12.5) H 08/26/17 14:00 INR 1.20 (0.93-1.08) H 08/26/17 14:00 APTT 35.2 Seconds (25.1-36.5) 08/26/17 14:00 - Constitutional Appears: Non-toxic, No Acute Distress - Head Exam Head Exam: NORMAL INSPECTION - ENT Exam ENT Exam: Mucous Membranes Moist - Neck Exam Neck Exam: absent: Meningismus - Respiratory Exam Respiratory Exam: Decreased Breath Sounds - Cardiovascular Exam Cardiovascular Exam: +S1, +S2 - GI/Abdominal Exam GI & Abdominal Exam: Soft. absent: Tenderness - Extremities Exam Additional comments: right foot with dressings in place Assessment and Plan - Assessment and Plan (Free Text) Plan: Assessment right hallux distal phalanx osteomyelitis with cellulitis ESRD on HD with left arm AV shunt DM HTN dyslipidemia Plan Currently on intermittent Vancomycin and Merrem - will need 4-6 weeks of antibiotics with weekly ESR, CRP, CBC, CMP, Vanco trough while on antibiotics - can substitute Ertapenem 500 mg daily, with Vancomycin 500 mg IV every dialysis session discussed with Dr. Guthrie
[2017-08-30] MEDS: Meloxicam 7.5 MG TAB PO SCH (16:19)
[2017-08-30] MEDS: Meropenem 500 MG in Sodium Chloride 0.9% 100 ML IVPB SCH ×2 (16:20→22:24)
[2017-08-30] MEDS: Vancomycin 1gm in NS 250ml 1 GM/250 ML BAG IVPB SCH (16:21)
--- NOTE | 2017-08-30 19:51 | PN ---
DATE: 08/30/2017 LOCATION: The patient is in room 376, bed 2. REASON FOR CONSULTATION AND FOLLOWUP: History of PAD, status post bilateral SFA atherectomy, drug coated balloon, admitted with toe infection, coronary artery disease, history of coronary angioplasty. SUBJECTIVE: The patient is having dialysis, lying flat in bed without chest pain, shortness of breath, or palpitation. PHYSICAL EXAMINATION: VITAL SIGNS: Blood pressure 128/98, respirations 18, pulse 81, temperature 98. HEENT: Head is normocephalic. Eyes: Pupils normal. Conjunctivae slightly pale. NECK: JVP low. Carotids equal. THORAX: AP diameter normal. LUNGS: Clear. CARDIOVASCULAR: S1 and S2. ABDOMEN: Soft and nontender. No organomegaly. Bowel sounds normal. EXTREMITIES: No clubbing. No cyanosis. Open area on right big toe. LABORATORY DATA: WBC 6.2, hemoglobin 10.2, hematocrit 33.0, platelets 98. Sodium 139, potassium 4.6, BUN 77, creatinine 9.1, sugar 76. AST 17, ALT 33. Total protein 6.4, albumin 3.4. DIAGNOSES: Osteomyelitis of the right toe; end-stage renal disease, on hemodialysis; peripheral vascular disease, status post transluminal coronary angioplasty of the left anterior descending on 08/20/2014, status post percutaneous transluminal coronary angioplasty of circumflex obtuse margin 1 and obtuse margin 2 on 08/22/2014; coronary artery disease, status post percutaneous transluminal coronary angioplasty of left anterior descending on 08/20/2014, status post angioplasty of right superficial femoral artery on 07/13/2012 and then left superficial femoral artery on 08/10/2017. MRI of the foot shows osteomyelitis, first distal phalanx of the large toe of the foot. PLAN: The patient on aspirin 81 mg daily, Flomax 0.4 daily, isosorbide mononitrate 60 daily, Merrem IV 500 mg q. 12 hour, Mobic 7.5 mg p.o. daily, PhosLo 667 mg p.o. WM, Plavix 75 mg p.o. daily, vancomycin 250 mg IV piggyback Monday, Monday, and Monday. Dialysis as per Renal. Clinically cardiac status stable. We will continue present therapy. We will follow with you. Katharina Mendez MD
--- NOTE | 2017-08-30 22:49 | CP.PCM.PN ---
<Quinn Aden - Last Filed: 08/30/17 22:44> Subjective - Date & Time of Evaluation Date of Evaluation: 08/30/17 Time of Evaluation: 22:45 - Subjective Subjective: 67 year old male seen at bedside for infected right hallux wound secondary to onychocryptosis. Patient is AAO x 3 and NAD resting comfortably in bed at time of visits. Denies any new pain or any acute overnight events. Denies any further pedal complaints at this time. Denies recent N/V/F/C/CP/SOB/D/posterior calf pain Objective - Vital Signs/Intake and Output Vital Signs (last 24 hours): Temp Pulse Resp BP Pulse Ox 97.7 F 84 16 129/90 199 H 08/30/17 08:00 08/30/17 08:00 08/30/17 08:00 08/30/17 08:00 08/30/17 08:00 Intake and Output: 08/30/17 08/31/17 18:59 06:59 Intake Total 360 Balance 360 - Medications Medications: Current Medications Aspirin (Ecotrin) 81 mg PO DAILY [facility] Last Admin: 08/30/17 16:20 Dose: 81 mg Calcium Acetate (Phoslo) 667 mg PO WM [facility] Last Admin: 08/30/17 18:53 Dose: Not Given Clonazepam (Klonopin) 0.5 mg PO BID [facility] PRN Reason: Protocol Last Admin: 08/30/17 18:53 Dose: Not Given Clopidogrel Bisulfate (Plavix) 75 mg PO DAILY [facility] Last Admin: 08/30/17 16:20 Dose: 75 mg Fluoxetine HCl (Prozac) 20 mg PO DAILY [facility] Last Admin: 08/30/17 16:19 Dose: 20 mg Meropenem 500 mg/ Sodium (Chloride) 100 mls @ 100 mls/hr IVPB Q12 [facility] PRN Reason: Protocol Stop: 09/05/17 10:01 Last Admin: 08/30/17 22:24 Dose: 100 mls/hr Vancomycin HCl (Vancomycin 1gm) 1 gm in 250 mls @ 167 mls/hr IVPB MWF [facility] PRN Reason: Protocol Last Admin: 08/30/17 16:21 Dose: 167 mls/hr Insulin Human Regular (Humulin R Med) 0 units SC ACHS [facility] Last Admin: 01/03/18 22:24 Dose: Not Given Isosorbide Mononitrate (Imdur) 60 mg PO ACB [facility] Last Admin: 08/30/17 16:20 Dose: 60 mg Meloxicam (Mobic) 7.5 mg PO DAILY [facility] Last Admin: 08/30/17 16:19 Dose: 7.5 mg Mupirocin (Bactroban Ointment) 1 gm TOP BID [facility] Last Admin: 08/30/17 18:52 Dose: 1 applic Tamsulosin HCl (Flomax) 0.4 mg PO DAILY [facility] Last Admin: 08/30/17 16:19 Dose: 0.4 mg - Labs Labs: 08/30/17 06:00 08/30/17 06:00 PT 13.3 SECONDS (9.4-12.5) H 08/26/17 14:00 INR 1.20 (0.93-1.08) H 08/26/17 14:00 APTT 35.2 Seconds (25.1-36.5) 08/26/17 14:00 - Constitutional Appears: Well, Non-toxic, No Acute Distress - Extremities Exam Additional comments: Dressing C/D/I Vasc: Right DP unpalpable, Left DP weakly palpable, PT pulses bilaterally unpalpable, temperature gradient is cool to cool proximal to distal, [employer]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 Minimal periwound erythema noted. No purulent drainage or malodor appreciated. No tracking, tunneling, undermining, or probe to bone appreciated. No other clinical signs of infection. Otherwise no open lesions, wounds, maceration, xerosis, abnormal pigmentation or abnormal growths noted b/ l. - Neurological Exam Neurological Exam: Alert, Awake, Oriented x3 - Psychiatric Exam Psychiatric exam: Normal Affect, Normal Mood Assessment and Plan - Assessment and Plan (Free Text) Assessment: 67 year old male seen at bedside for OM of right hallux distal phalanx with overlying ulceration to distal digit Plan: Patient seen and evaluated at bedside with attending Dr. Smith Afebrile, Absent Leukocytosis Wound cx R hallux prelim: GP cocci MRI right foot: There is minimal marrow edema in the first distal phalanx consistent with the clinical history of osteomyelitis. Soft tissue edema also seen Arterial duplex: Limited due to calcified vessels, possible R SFA occlusive disease, Possible b/l pedal occlusive disease versus vasoconstriction RODNEY's calcified, PVR waveform normal, metatarsal waveform blunted ID consult appreciated Continue IV abx Patient for 4-6 weeks IV abx Wound dressed with iodosorb DSD Podiatry will continue to follow while patient in house <Caroline Smith - Last Filed: 08/31/17 14:31> Objective - Vital Signs/Intake and Output Vital Signs (last 24 hours): Temp Pulse Resp BP Pulse Ox 97.9 F 87 16 127/85 100 08/31/17 06:00 08/31/17 06:00 08/31/17 06:00 08/31/17 06:00 08/31/17 06:00 Intake and Output: 08/31/17 08/31/17 06:59 18:59 Intake Total 720 420 Balance 720 420 - Medications Medications: Current Medications Aspirin (Ecotrin) 81 mg PO DAILY [facility] Last Admin: 08/31/17 10:17 Dose: 81 mg Cadexomer Iodine (Iodosorb) 0 gm TOP DAILY [facility] Calcium Acetate (Phoslo) 667 mg PO WM [facility] Last Admin: 08/31/17 14:05 Dose: 667 mg Clonazepam (Klonopin) 0.5 mg PO BID [facility] PRN Reason: Protocol Last Admin: 08/31/17 10:18 Dose: 0.5 mg Clopidogrel Bisulfate (Plavix) 75 mg PO DAILY [facility] Last Admin: 08/31/17 10:18 Dose: 75 mg Fluoxetine HCl (Prozac) 20 mg PO DAILY [facility] Last Admin: 08/31/17 10:19 Dose: 20 mg Vancomycin HCl (Vancomycin 1gm) 1 gm in 250 mls @ 167 mls/hr IVPB MWF [facility] PRN Reason: Protocol Last Admin: 08/30/17 16:21 Dose: 167 mls/hr Meropenem 500 mg/ Sodium (Chloride) 100 mls @ 100 mls/hr IVPB QPM [facility] PRN Reason: Protocol Stop: 09/05/17 22:01 Insulin Human Regular (Humulin R Med) 0 units SC ACHS [facility] Last Admin: 08/31/17 11:28 Dose: 1 units Isosorbide Mononitrate (Imdur) 60 mg PO ACB [facility] Last Admin: 08/31/17 10:19 Dose: 60 mg Mupirocin (Bactroban Ointment) 1 gm TOP BID [facility] Last Admin: 08/31/17 10:19 Dose: Not Given Oxycodone/Acetaminophen (Percocet 5/325 Mg Tab) 1 tab PO Q6H PRN PRN Reason: Pain, moderate (4-7) Stop: 09/03/17 10:50 Last Admin: 08/31/17 11:22 Dose: 1 tab Tamsulosin HCl (Flomax) 0.4 mg PO DAILY [facility] Last Admin: 08/31/17 10:17 Dose: 0.4 mg - Labs Labs: 08/30/17 06:00 08/30/17 06:00 PT 13.3 SECONDS (9.4-12.5) H 08/26/17 14:00 INR 1.20 (0.93-1.08) H 08/26/17 14:00 APTT 35.2 Seconds (25.1-36.5) 08/26/17 14:00 Attending/Attestation - Attestation I have personally seen and examined this patient.: Yes I have fully participated in the care of the patient.: Yes I have reviewed all pertinent clinical information, including history, physical exam and plan: Yes
[2017-08-31] MEDS ORDERED: Oxycodone/Acetaminophen 5/325 mg Tab PO STA (02:07)
--- NOTE | 2017-08-31 02:07 | CP.PCM.PN ---
Subjective - Date & Time of Evaluation Date of Evaluation: 08/31/17 Time of Evaluation: 02:07 - Subjective Subjective: Patient was seen at bedside. Asks for pain medication for pain in right toe. States that he has been on percocet 3 times a day for pain. Has no other complaints. Medical record was reviewed. This 67 year old male was admitted from [facility] for right great to pain of 3 weeks duration. Has PMH of DM, hypertension, ESRD,BPH. Objective - Vital Signs/Intake and Output Vital Signs (last 24 hours): Temp Pulse Resp BP Pulse Ox 97.7 F 84 16 129/90 199 H 08/30/17 08:00 08/30/17 08:00 08/30/17 08:00 08/30/17 08:00 08/30/17 08:00 Intake and Output: 08/30/17 08/31/17 18:59 06:59 Intake Total 360 Balance 360 - Medications Medications: Current Medications Aspirin (Ecotrin) 81 mg PO DAILY [facility] Last Admin: 08/30/17 16:20 Dose: 81 mg Calcium Acetate (Phoslo) 667 mg PO WM [facility] Last Admin: 08/30/17 18:53 Dose: Not Given Clonazepam (Klonopin) 0.5 mg PO BID [facility] PRN Reason: Protocol Last Admin: 08/30/17 18:53 Dose: Not Given Clopidogrel Bisulfate (Plavix) 75 mg PO DAILY [facility] Last Admin: 08/30/17 16:20 Dose: 75 mg Fluoxetine HCl (Prozac) 20 mg PO DAILY [facility] Last Admin: 08/30/17 16:19 Dose: 20 mg Meropenem 500 mg/ Sodium (Chloride) 100 mls @ 100 mls/hr IVPB Q12 [facility] PRN Reason: Protocol Stop: 09/05/17 10:01 Last Admin: 08/30/17 22:24 Dose: 100 mls/hr Vancomycin HCl (Vancomycin 1gm) 1 gm in 250 mls @ 167 mls/hr IVPB MWF [facility] PRN Reason: Protocol Last Admin: 08/30/17 16:21 Dose: 167 mls/hr Insulin Human Regular (Humulin R Med) 0 units SC ACHS [facility] Last Admin: 08/30/17 22:24 Dose: Not Given Isosorbide Mononitrate (Imdur) 60 mg PO ACB [facility] Last Admin: 08/30/17 16:20 Dose: 60 mg Meloxicam (Mobic) 7.5 mg PO DAILY [facility] Last Admin: 08/30/17 16:19 Dose: 7.5 mg Mupirocin (Bactroban Ointment) 1 gm TOP BID [facility] Last Admin: 08/30/17 18:52 Dose: 1 applic Tamsulosin HCl (Flomax) 0.4 mg PO DAILY [facility] Last Admin: 08/30/17 16:19 Dose: 0.4 mg - Labs Labs: 08/30/17 06:00 08/30/17 06:00 PT 13.3 SECONDS (9.4-12.5) H 08/26/17 14:00 INR 1.20 (0.93-1.08) H 08/26/17 14:00 APTT 35.2 Seconds (25.1-36.5) 08/26/17 14:00 Micro Results 08/26/17 14:30 Blood-Venous Blood Culture - Preliminary NO GROWTH AFTER 4 DAYS 08/26/17 14:00 Blood-Venous Blood Culture - Preliminary NO GROWTH AFTER 4 DAYS 08/29/17 15:00 Toe Gram Stain - Final 08/29/17 15:00 Toe Wound Culture - Preliminary Gram Positive Cocci Most Recent Lab Values WBC 6.2 10^3/ul (4.5-11.0) 08/30/17 06:00 RBC 3.41 10^6/uL (3.5-6.1) L 08/30/17 06:00 Hgb 10.2 g/dL (14.0-18.0) L 08/30/17 06:00 Hct 33.0 % (42.0-52.0) L 08/30/17 06:00 MCV 96.8 fl (80.0-105.0) 08/30/17 06:00 MCH 29.9 pg (25.0-35.0) 08/30/17 06:00 MCHC 30.9 g/dl (31.0-37.0) L 08/30/17 06:00 RDW 14.0 % (11.5-14.5) 08/30/17 06:00 Plt Count 98 10^3/uL (120.0-450.0) L 08/30/17 06:00 MPV 13.1 fl (7.0-11.0) H 08/30/17 06:00 Gran % 53.8 % (50.0-68.0) 08/29/17 06:30 Lymph % (Auto) 19.3 % (22.0-35.0) L 08/29/17 06:30 Garfield % (Auto) 8.4 % (1.0-6.0) H 08/29/17 06:30 Eos % (Auto) 17.3 % (1.5-5.0) H 08/29/17 06:30 Baso % (Auto) 1.2 % (0.0-3.0) 08/29/17 06:30 Gran # 3.20 (1.4-6.5) 08/29/17 06:30 Lymph # 1.2 (1.2-3.4) 08/29/17 06:30 Garfield # 0.5 (0.1-0.6) 08/29/17 06:30 Eos # 1.0 (0.0-0.7) H 08/29/17 06:30 Baso # 0.07 K/mm3 (0.0-2.0) 08/29/17 06:30 ESR 35 mm/hr (0.00-15.0) H 08/27/17 10:49 PT 13.3 SECONDS (9.4-12.5) H 08/26/17 14:00 INR 1.20 (0.93-1.08) H 08/26/17 14:00 APTT 35.2 Seconds (25.1-36.5) 08/26/17 14:00 pO2 28 mm/Hg (30-55) L 08/26/17 14:00 VBG pH 7.34 (7.32-7.43) 08/26/17 14:00 VBG pCO2 65.0 (40-60) H 08/26/17 14:00 VBG HCO3 35.1 mmol/l (21-28) H 08/26/17 14:00 VBG Total CO2 37.1 mmol.L (22-28) H 08/26/17 14:00 VBG O2 Sat (Calc) 53.5 % (40-65) 08/26/17 14:00 VBG Base Excess 7.0 mmol/L (0.0-2.0) H 08/26/17 14:00 VBG Potassium 4.5 mmol/L (3.6-5.2) 08/26/17 14:00 Sodium 137.0 mmol/L (132-148) 08/26/17 14:00 Chloride 96.0 mmol/L (98-107) L 08/26/17 14:00 Glucose 289 mg/dl (75-110) H 08/26/17 14:00 Lactate 1.4 mmol/L (0.7-2.1) 08/26/17 14:00 FiO2 21.0 % 08/26/17 14:00 Sodium 139 mmol/L (132-148) 08/30/17 06:00 Potassium 4.6 mmol/L (3.6-5.0) 08/30/17 06:00 Chloride 98 mmol/L (98-107) 08/30/17 06:00 Carbon Dioxide 24 mmol/L (21-33) 08/30/17 06:00 Anion Gap 22 (10-20) H 08/30/17 06:00 BUN 77 mg/dL (7-21) H 08/30/17 06:00 Creatinine 9.1 mg/dl (0.8-1.5) H* 08/30/17 06:00 Est GFR ( Amer) 7 08/30/17 06:00 Est GFR (Non-Af Amer) 6 08/30/17 06:00 POC Glucose (mg/dL) 148 mg/dL (65-110) H 08/30/17 21:59 Random Glucose 135 mg/dL (70-110) H 08/30/17 06:00 Hemoglobin A1c 8.8 % (4.2-6.5) H 08/29/17 06:30 Calcium 9.1 mg/dL (8.4-10.5) 08/30/17 06:00 Phosphorus 5.5 mg/dL (2.5-4.5) H 08/29/17 06:30 Magnesium 2.1 mg/dL (1.7-2.2) 08/29/17 06:30 Total Bilirubin 0.9 mg/dL (0.2-1.3) 08/30/17 06:00 AST 17 U/L (17-59) 08/30/17 06:00 ALT 23 U/L (7-56) 08/30/17 06:00 Alkaline Phosphatase 145 U/L (38-126) H 08/30/17 06:00 Troponin I 0.32 ng/mL H* 08/27/17 10:48 C-React Prot High Sens 13.19 mg/L (1.00-3.00) H 08/27/17 10:48 Total Protein 6.4 g/dL (5.8-8.3) 08/30/17 06:00 Albumin 3.4 g/dL (3.0-4.8) 08/30/17 06:00 Globulin 3.0 gm/dL 08/30/17 06:00 Albumin/Globulin Ratio 1.1 (1.1-1.8) 08/30/17 06:00 Triglycerides 55 mg/dL (35-160) 08/29/17 06:30 Cholesterol 150 mg/dL (130-200) 08/29/17 06:30 LDL Cholesterol Direct 104 mg/dL (0-129) 08/29/17 06:30 HDL Cholesterol 34 mg/dL (29-60) 08/29/17 06:30 TSH 3rd Generation 1.00 mIU/mL (0.46-4.68) 08/29/17 06:30 Venous Blood Potassium 4.5 mmol/L (3.6-5.2) 08/26/17 14:00 Blood Type O POSITIVE 08/26/17 14:00 Antibody Screen Negative 08/26/17 14:00 BBK History Checked Patient has bt 08/26/17 14:00 - Constitutional Appears: Well, No Acute Distress - Head Exam Head Exam: ATRAUMATIC, NORMAL INSPECTION, NORMOCEPHALIC - Eye Exam Eye Exam: Normal appearance - ENT Exam ENT Exam: Normal External Ear Exam - Neck Exam Neck Exam: Normal Inspection - Respiratory Exam Respiratory Exam: NORMAL BREATHING PATTERN - Cardiovascular Exam Cardiovascular Exam: absent: JVD - GI/Abdominal Exam GI & Abdominal Exam: absent: Distended - Rectal Exam Rectal Exam: Deferred - Exam Additional comments: Deferred. - Extremities Exam Additional comments: Right toe swelling, redness + - Back Exam Back Exam: NORMAL INSPECTION - Neurological Exam Neurological Exam: Alert, Oriented x3 - Psychiatric Exam Psychiatric exam: Normal Affect, Normal Mood - Skin Skin Exam: Normal Color Assessment and Plan - Assessment and Plan (Free Text) Assessment: Right great toe pain. DM II. ESRD. HTN. BPH. Plan: Percocet I PO now. Continue present management.
[2017-08-31] MEDS: Insulin Reg-MEDIUM-Coverage SC SCH ×4 (08:00→22:23)
[2017-08-31 09:07] VITALS: BP 127/85; PULSE 87; TEMP 97.9; O2SAT 100
[2017-08-31] MEDS: Meropenem 500 MG in Sodium Chloride 0.9% 100 ML IVPB SCH (10:11)
[2017-08-31] MEDS: Meloxicam 7.5 MG TAB PO SCH ×2 (10:17→10:24)
[2017-08-31] MEDS ORDERED: Oxycodone/Acetaminophen 5/325 mg Tab PO PRN (10:31)
[2017-08-31] MEDS: Oxycodone/Acetaminophen 5/325 mg Tab PO PRN ×2 (11:22→19:26)
[2017-08-31] MEDS ORDERED: Meropenem 500 MG in Sodium Chloride 0.9% 100 ML IVPB SCH (11:36)
--- NOTE | 2017-08-31 13:49 | CP.PCM.PN ---
Subjective - Date & Time of Evaluation Date of Evaluation: 08/31/17 Time of Evaluation: 12:20 - Subjective Subjective: No fevers, not in distress, less pain in the right big toe. Objective - Vital Signs/Intake and Output Vital Signs (last 24 hours): Temp Pulse Resp BP Pulse Ox 97.9 F 87 16 127/85 100 08/31/17 06:00 08/31/17 06:00 08/31/17 06:00 08/31/17 06:00 08/31/17 06:00 Intake and Output: 08/31/17 08/31/17 06:59 18:59 Intake Total 720 Balance 720 - Medications Medications: Current Medications Aspirin (Ecotrin) 81 mg PO DAILY [facility] Last Admin: 08/31/17 10:17 Dose: 81 mg Calcium Acetate (Phoslo) 667 mg PO WM [facility] Last Admin: 08/31/17 10:18 Dose: 667 mg Clonazepam (Klonopin) 0.5 mg PO BID [facility] PRN Reason: Protocol Last Admin: 08/31/17 10:18 Dose: 0.5 mg Clopidogrel Bisulfate (Plavix) 75 mg PO DAILY [facility] Last Admin: 08/31/17 10:18 Dose: 75 mg Fluoxetine HCl (Prozac) 20 mg PO DAILY [facility] Last Admin: 08/31/17 10:19 Dose: 20 mg Meropenem 500 mg/ Sodium (Chloride) 100 mls @ 100 mls/hr IVPB Q12 [facility] PRN Reason: Protocol Stop: 09/05/17 10:01 Last Admin: 08/31/17 10:11 Dose: 100 mls/hr Vancomycin HCl (Vancomycin 1gm) 1 gm in 250 mls @ 167 mls/hr IVPB MWF [facility] PRN Reason: Protocol Last Admin: 08/30/17 16:21 Dose: 167 mls/hr Insulin Human Regular (Humulin R Med) 0 units SC ACHS [facility] Last Admin: 08/31/17 08:00 Dose: Not Given Isosorbide Mononitrate (Imdur) 60 mg PO ACB [facility] Last Admin: 08/31/17 10:19 Dose: 60 mg Mupirocin (Bactroban Ointment) 1 gm TOP BID [facility] Last Admin: 08/31/17 10:19 Dose: Not Given Oxycodone/Acetaminophen (Percocet 5/325 Mg Tab) 1 tab PO Q6H PRN PRN Reason: Pain, moderate (4-7) Stop: 09/03/17 10:50 Tamsulosin HCl (Flomax) 0.4 mg PO DAILY [facility] Last Admin: 08/31/17 10:17 Dose: 0.4 mg - Labs Labs: 08/30/17 06:00 08/30/17 06:00 PT 13.3 SECONDS (9.4-12.5) H 08/26/17 14:00 INR 1.20 (0.93-1.08) H 08/26/17 14:00 APTT 35.2 Seconds (25.1-36.5) 08/26/17 14:00 - Constitutional Appears: Non-toxic - Head Exam Head Exam: NORMAL INSPECTION - Respiratory Exam Respiratory Exam: Decreased Breath Sounds - Cardiovascular Exam Cardiovascular Exam: +S1, +S2 - GI/Abdominal Exam GI & Abdominal Exam: Soft. absent: Tenderness - Extremities Exam Additional comments: right foot with dressings in place Assessment and Plan - Assessment and Plan (Free Text) Plan: Assessment right hallux distal phalanx osteomyelitis with cellulitis ESRD on HD with left arm AV shunt DM HTN dyslipidemia Plan Currently on intermittent Vancomycin and Merrem - will need 4-6 weeks of antibiotics with weekly ESR, CRP, CBC, CMP, Vanco trough while on antibiotics - can substitute Ertapenem 500 mg daily, with Vancomycin 500 mg IV every dialysis session discussed with Dr. Guthrie previously; patient should get Vascular consult since doppler U/S of lower extremities is suggestive of PVD
--- NOTE | 2017-08-31 20:14 | PN ---
DATE: 08/31/2017 SUBJECTIVE: The patient is a 67-year-old male who has come in to the hospital and found to have osteomyelitis of his right foot. The patient was followed by Dr. Vargas from Podiatry and Dr. Elmore from Infectious Disease. The patient had a right toe osteomyelitis. He was placed on IV antibiotics. He had improvement of his symptoms. He does continue to have pain. He is going to need IV antibiotics. The patient does not wish to go to subacute rehab facility for IV antibiotics for 4 to 6 weeks and first come to the hospital. He had some of his treatment on dialysis. PHYSICAL EXAMINATION: VITAL SIGNS: Temperature is 97.9, pulse is 87, blood pressure is 127/85, and respirations 16. GENERAL: The patient is lying in bed, flat, comfortable. HEENT: No oral lesion. Anicteric sclerae. Moist mucosa. NECK: No JVD, adenopathy, or thyromegaly. CARDIOVASCULAR: S1 and S2, regular. No murmurs, rubs, or gallops. LUNGS: Clear to auscultation bilaterally. No wheeze, rales, or rhonchi. ABDOMEN: Bowel sounds are positive, soft, nontender and nondistended. EXTREMITIES: No cyanosis, clubbing or edema. ASSESSMENT: 1. Osteomyelitis of the right toe. 2. End stage renal disease on hemodialysis. 3. Chronic anemia. 4. Secondary hyperparathyroidism. 5. Diabetes type 2. PLAN: The patient is currently comfortable. He is doing well with dialysis. He is going to continue with Flomax. The patient is going to be on ertapenem and vancomycin. The patient is going to get vancomycin 500 mg every dialysis session and he is going to get ertapenem 500 mg daily for 4 to 6 weeks. The patient is on Prozac, this will be continued. He is on Plavix daily, he is on Klonopin. Condition stable. Activity, increase as tolerated. Maurice Agarwal MD
[2017-09-01] MEDS: Oxycodone/Acetaminophen 5/325 mg Tab PO PRN ×2 (01:42→10:55)
[2017-09-01 08:18] LABS: BASO # 0.08 K/mm3 (0.0-2.0); BASO % 1.2 % (0.0-3.0); EOS # 1.1 (0.0-0.7); EOS % 15.9 % (1.5-5.0); GRAN # 3.68 (1.4-6.5); GRAN % 55.4 % (50.0-68.0); HEMOGLOBIN 10.2 g/dL (14.0-18.0); LYMPH # 1.1 (1.2-3.4); LYMPH % 16.4 % (22.0-35.0); MEAN CELL VOLUME 95.1 fl (80.0-105.0); MEAN CORPUSCULAR HEMOGLOBIN 29.7 pg (25.0-35.0); MEAN CORPUSCULAR HGB CONC 31.2 g/dl (31.0-37.0); MEAN PLATELET VOLUME 13.6 fl (7.0-11.0); MONO # 0.7 (0.1-0.6); MONO % 11.1 % (1.0-6.0); RBC 3.44 10^6/uL (3.5-6.1); RED CELL DISTRIBUTION WIDTH 13.8 % (11.5-14.5); WHITE BLOOD COUNT 6.7 10^3/ul (4.5-11.0)
[2017-09-01 08:25] LABS: ALB/GLOB RATIO 1.2 (1.1-1.8); ALBUMIN 3.6 g/dL (3.0-4.8); CALCIUM 9.8 mg/dL (8.4-10.5); MAGNESIUM 2.1 mg/dL (1.7-2.2)
--- NOTE | 2017-09-01 08:49 | PN ---
This is a 67-year-old male seen at bedside for necrotic left hallux and possible osteomyelitis of the distal phalanx. He is being treated for that osteomyelitis with 4 to 6 weeks of IV antibiotics as per Infectious Disease. The plan of treatment is hopefully to get the patient home on vancomycin, which he can take at dialysis and an antibiotic which is once daily; however, case management are checking with insurance to see if this is covered. If not, the patient would have to go to a subacute rehab. This was explained to the patient today. The patient's lower extremities were evaluated. He has nonpalpable pedal pulses. He does have calcified vessels secondary to his end-stage renal disease. Upon evaluation of his x-ray, there is a calcified artery in the foot which is visible on x-ray, which comes from the ankle and goes dorsally right to the hallux, which is the problem in this unfortunate patient. The patient's foot is cool and the toe is cold. There is no capillary refill time to that digit. The medial border of that right hallux nail is necrotic. The nail was still painful and using a sterile nail clipper, I clipped the nail straight across to bring down some of the hypertrophy and after I removed that piece of nail, which was cut atraumatically with no bleeding or discomfort to the patient. I did see in that medial border that there was still some more pus coming up from that medial border. This was cleansed with saline and the patient's Bactroban ointment was then placed over the area and we ordered Iodosorb ointment for him and then a foam dressing Band-Aid was placed over this. He is not bed bound, so Multi Podus boots have not been ordered and he will be seen and followed while in-house. I told him if he was discharged, he needs to go back and see his sand mixer as soon as possible. The patient's dressing was done and he will be followed as needed. Caroline Smith DPM
--- NOTE | 2017-09-01 08:50 | PN ---
DATE: 08/31/2017 LOCATION: The patient is in room 571, bed 1. REASON FOR CONSULTATION AND FOLLOWUP: History of PAD, status post bilateral SFA atherectomy drug coated balloon, history of coronary artery disease, coronary angioplasty, admitted with toe infection found to have osteomyelitis. SUBJECTIVE: The patient is lying flat in bed without any chest pain, shortness of breath or palpitation. He complain pain at the area of the open wound on the large toe of the right foot. PHYSICAL EXAMINATION: VITAL SIGNS: Blood pressure 127/85, respiration 16, pulse 87 and temperature 97.9. HEENT: Head is normocephalic. Eyes, pupils normal. Conjunctivae are slightly pale. NECK: JVP low. Carotids equal. THORAX: AP diameter normal. LUNGS: Clear. CARDIOVASCULAR: S1 and S2. ABDOMEN: Soft and nontender. No organomegaly. Bowels are normal. EXTREMITIES: No clubbing. No cyanosis. Open wound on the large toe of the right foot. LABORATORY DATA: WBC 6.2, hemoglobin 10.2, hematocrit 33.0 and platelets 98. Sodium 139, potassium 4.6, BUN 77, creatinine 9.1, and random sugar 167. Calcium, AST, ALT, total protein, and albumin normal. DIAGNOSES: Osteomyelitis of the large toe of the right foot, end-stage renal failure on dialysis, peripheral vascular disease, status post bilateral superficial femoral artery atherectomy, coronary artery disease, history of angioplasty of left anterior descending coronary artery on 08/20/2014, and circumflex obtuse marginal one and obtuse marginal two on 08/22/2014, atherectomy of the right superficial femoral artery on 07/13/2017 and left superficial femoral artery on 08/10/2017. PLAN: Clinically cardiac status is stable. The patient is getting aspirin 81 mg daily, isosorbide mononitrate 60 daily, Merrem 500 mg IV q. daily, PhosLo 667 mg p.o. Monday and Monday, Plavix 75 daily, vancomycin 1 g Monday, Monday, and Monday IV and Prozac 20 mg daily. We will continue present therapy. We will follow with you. Katharina Mendez MD [facility] # [id number] SA[facility]
[2017-09-01] MEDS ORDERED: CADEXOMER IODINE 0.9% GEL 10G TOP SCH (10:00)
[2017-09-01] MEDS: Vancomycin 1gm in NS 250ml 1 GM/250 ML BAG IVPB SCH (10:45)
[2017-09-01] MEDS: Insulin Reg-MEDIUM-Coverage SC SCH ×2 (10:49→11:54)
--- NOTE | 2017-09-01 16:29 | CP.PCM.PN ---
<Quinn Aden - Last Filed: 09/01/17 16:25> Subjective - Date & Time of Evaluation Date of Evaluation: 09/01/17 Time of Evaluation: 16:25 - Subjective Subjective: 67 year old male seen at bedside for infected right hallux wound secondary to onychocryptosis with underlying OM. Patient is AAO x 3 and NAD resting comfortably in bed at time of visits. Denies any new pain or any acute overnight events. Denies any further pedal complaints at this time. Denies recent N/V/F/C/CP/SOB/D/posterior calf pain Objective - Vital Signs/Intake and Output Vital Signs (last 24 hours): Temp Pulse Resp BP Pulse Ox 97.9 F 87 16 127/85 100 08/31/17 06:00 08/31/17 06:00 08/31/17 06:00 08/31/17 06:00 08/31/17 06:00 Intake and Output: 09/01/17 09/01/17 06:59 18:59 Intake Total 540 Balance 540 - Medications Medications: Current Medications Aspirin (Ecotrin) 81 mg PO DAILY [facility] Last Admin: 09/01/17 10:48 Dose: 81 mg Cadexomer Iodine (Iodosorb) 0 gm TOP DAILY [facility] Last Admin: 09/01/17 12:03 Dose: 10 gm Calcium Acetate (Phoslo) 667 mg PO WM [facility] Last Admin: 09/01/17 12:51 Dose: 667 mg Clonazepam (Klonopin) 0.5 mg PO BID [facility] PRN Reason: Protocol Last Admin: 09/01/17 10:48 Dose: 0.5 mg Clopidogrel Bisulfate (Plavix) 75 mg PO DAILY [facility] Last Admin: 09/01/17 10:48 Dose: 75 mg Fluoxetine HCl (Prozac) 20 mg PO DAILY [facility] Last Admin: 09/01/17 10:48 Dose: 20 mg Vancomycin HCl (Vancomycin 1gm) 1 gm in 250 mls @ 167 mls/hr IVPB MWF [facility] PRN Reason: Protocol Last Admin: 09/01/17 10:45 Dose: 167 mls/hr Meropenem 500 mg/ Sodium (Chloride) 100 mls @ 100 mls/hr IVPB QPM [facility] PRN Reason: Protocol Stop: 09/05/17 22:01 Last Admin: 08/31/17 17:25 Dose: 100 mls/hr Insulin Human Regular (Humulin R Med) 0 units SC ACHS [facility] Last Admin: 09/01/17 11:54 Dose: Not Given Isosorbide Mononitrate (Imdur) 60 mg PO ACB [facility] Last Admin: 09/01/17 10:48 Dose: 60 mg Mupirocin (Bactroban Ointment) 1 gm TOP BID [facility] Last Admin: 09/01/17 10:45 Dose: 1 applic Oxycodone/Acetaminophen (Percocet 5/325 Mg Tab) 1 tab PO Q6H PRN PRN Reason: Pain, moderate (4-7) Stop: 09/03/17 10:50 Last Admin: 09/01/17 10:55 Dose: 1 tab Tamsulosin HCl (Flomax) 0.4 mg PO DAILY [facility] Last Admin: 09/01/17 10:48 Dose: 0.4 mg - Labs Labs: 09/01/17 05:45 09/01/17 05:45 PT 13.3 SECONDS (9.4-12.5) H 08/26/17 14:00 INR 1.20 (0.93-1.08) H 08/26/17 14:00 APTT 35.2 Seconds (25.1-36.5) 08/26/17 14:00 - Constitutional Appears: Well, Non-toxic, No Acute Distress - Extremities Exam Additional comments: Dressing C/D/I Vasc: Right DP unpalpable, Left DP weakly palpable, PT pulses bilaterally unpalpable, temperature gradient is cool to cool proximal to distal, VALVE LINER RUBBER delayed to 4 seconds to digits, non pitting edema noted to the right forefoot Ortho: moderate pain with palpation to entire right foot, worse with palpation to the nail plate and medial aspect of hallux at wound site Neuro: gross intact, protective sensation diminished bilaterally Derm: Approximately 0.3 cm x 0.4 cm wound noted at distal medial border of right nail plate. Minimal periwound erythema noted. No purulent drainage or malodor appreciated. No tracking, tunneling, undermining, or probe to bone appreciated. No other clinical signs of infection. Otherwise no open lesions, wounds, maceration, xerosis, abnormal pigmentation or abnormal growths noted b/ l. - Neurological Exam Neurological Exam: Alert, Awake, Oriented x3 - Psychiatric Exam Psychiatric exam: Normal Affect, Normal Mood Assessment and Plan - Assessment and Plan (Free Text) Assessment: 67 year old male seen at bedside for OM of right hallux distal phalanx with overlying ulceration to distal digit Plan: Patient seen and evaluated at bedside Plan discussed with attending Dr. Vargas Absent leukocytosis Wound cx toe - Enterococcus faecalis MRI right foot: There is minimal marrow edema in the first distal phalanx consistent with the clinical history of osteomyelitis. Soft tissue edema also seen Arterial duplex: Limited due to calcified vessels, possible R SFA occlusive disease, Possible b/l pedal occlusive disease versus vasoconstriction Wound dressed with iodosorb, optifoam Patient to be DC'd today and will receive 4-6 weeks IV abx as outpatient <Dylon Vargas - Last Filed: 09/02/17 08:54> Objective - Vital Signs/Intake and Output Vital Signs (last 24 hours): Temp Pulse Resp BP Pulse Ox 97.9 F 87 16 127/85 100 08/31/17 06:00 08/31/17 06:00 08/31/17 06:00 08/31/17 06:00 08/31/17 06:00 - Labs Labs: 09/01/17 05:45 09/01/17 05:45 PT 13.3 SECONDS (9.4-12.5) H 08/26/17 14:00 INR 1.20 (0.93-1.08) H 08/26/17 14:00 APTT 35.2 Seconds (25.1-36.5) 08/26/17 14:00 Attending/Attestation - Attestation I have personally seen and examined this patient.: Yes I have fully participated in the care of the patient.: Yes I have reviewed all pertinent clinical information, including history, physical exam and plan: Yes
--- NOTE | 2017-09-01 18:09 | PN ---
DATE: 09/01/2017 LOCATION: The patient is in room 571, bed 1. REASON FOR CONSULTATION: Followup on history of PAD, status post bilateral SFA atherectomy, drug-coated balloon, history of coronary artery disease, coronary angioplasty, admitted with toe infection of right foot toe, found to have osteomyelitis. SUBJECTIVE: The patient right now in dialysis. Denies chest pain, shortness of breath, or palpitation. PHYSICAL EXAMINATION: VITAL SIGNS: Blood pressure is 127/85, respirations are 16, pulse is 87, and temperature is 97.9. HEENT: Head is normocephalic. Eyes: Pupils are normal. Conjunctivae are slightly pale. NECK: JVP low. Carotids are equal. THORAX: AP diameter normal. LUNGS: Clear. CARDIOVASCULAR: S1 and S2. ABDOMEN: Soft, nontender. No organomegaly. Bowel sounds normal. EXTREMITIES: No clubbing. No cyanosis. LABORATORY DATA: Labs shows WBC 6.7, hemoglobin 10.2, hematocrit 32.7, and platelets 98. Sodium 138, potassium 4.2, BUN 55, creatinine 7.6, random sugar 132, another sugar 104, calcium 9.8, and phosphorus 6.5. AST and ALT normal. Total protein and albumin normal. DIAGNOSES: Osteomyelitis of the right toe of the right foot; end-stage renal failure, on dialysis; peripheral vascular disease, status post bilateral superficial femoral artery atherectomy, coronary artery disease, history of angioplasty of left anterior descending coronary artery on 08/20/2014; circumflex obtuse marginal one and obtuse marginal two on 08/22/2014, atherectomy of the right superficial femoral artery on 07/13/2017, and left superficial femoral artery on 08/10/2017. PLAN: We will continue IV antibiotics and dialysis as per renal. Continue Plavix 75 mg daily, Coreg 20 mg daily, PhosLo 667 mg p.o. Monday and Monday, aspirin 81 mg daily, Merrem 500 mg IV daily, vancomycin 1 gm in 250 mL of fluid IV piggyback Monday, Monday, and Monday. We will follow with you. Katharina Mendez MD [facility] # [id number]
--- NOTE | 2017-09-02 00:21 | DS ---
SUBJECTIVE: The patient has no complaints of any chest pain, shortness of breath, or headaches. Please see the discharge summary that was done yesterday. PHYSICAL EXAMINATION: VITAL SIGNS: The patient is 97.9, pulse of 87, blood pressure 127/85 and respirations 16. GENERAL: The patient is lying in bed, flat, comfortable. HEENT: No oral lesion. Anicteric sclerae. Moist mucosa. NECK: No JVD, adenopathy, or thyromegaly. CARDIOVASCULAR: S1 and S2, regular. No murmurs, rubs, or gallops. LUNGS: Clear to auscultation bilaterally. No wheeze, rales, or rhonchi. ABDOMEN: Bowel sounds are positive, soft, nontender and nondistended. EXTREMITIES: No cyanosis, clubbing or edema. LABS: White count of 6.7 and hemoglobin 10.2. Creatinine 7.6. ASSESSMENT: 1. Osteomyelitis of the right toe. 2. End-stage renal disease on hemodialysis. 3. Chronic anemia. 4. Secondary hyperparathyroidism. 5. Diabetes type 2. PLAN: The patient is on Flomax for BPH. The patient is on Klonopin. He is going to continue with oxycodone for pain. The patient is on PhosLo for secondary hyperparathyroidism. He is on vancomycin for IV antibiotics. He was supposed to be discharged home yesterday, but was not able to leave. He is going to be discharge home today. He had difficulty leaving because of the weather conditions. Maurice Agarwal MD
== END 2017-09-01 17:02 | disposition home or self-care (01) | DRG 638 ==
LOC: ED 13:03 → ERH 15:12 → 3RSO 17:27 → 5RSO 08-29 22:29
PROVIDERS: ADMIT Internal Medicine Medical Oncology; ATTEND Internal Medicine Nephrology
PROC: 02HV33Z Insertion of Infusion Device into Superior Vena Cava, Percutaneous Approach (ICD-10-PCS; principal; 2017-08-30)
PROC: B548ZZA Ultrasonography of Superior Vena Cava, Guidance (ICD-10-PCS; 2017-08-30)
PROC: 5A1D70Z Performance of Urinary Filtration, Intermittent, Less than 6 Hours Per Day (ICD-10-PCS; 2017-08-30)
PROC: 5A1D70Z Performance of Urinary Filtration, Intermittent, Less than 6 Hours Per Day (ICD-10-PCS; 2017-09-01)
DX: E11.69 Type 2 diabetes mellitus with other specified complication (principal); M86.9 Osteomyelitis, unspecified; E11.22 Type 2 diabetes mellitus with diabetic chronic kidney disease; E11.621 Type 2 diabetes mellitus with foot ulcer; L03.115 Cellulitis of right lower limb; E11.51 Type 2 diabetes mellitus with diabetic peripheral angiopathy without gangrene; I12.0 Hypertensive chronic kidney disease with stage 5 chronic kidney disease or end stage renal disease; E11.319 Type 2 diabetes mellitus with unspecified diabetic retinopathy without macular edema; N18.6 End stage renal disease; N25.81 Secondary hyperparathyroidism of renal origin; Z99.2 Dependence on renal dialysis; N40.0 Benign prostatic hyperplasia without lower urinary tract symptoms; J44.9 Chronic obstructive pulmonary disease, unspecified; L60.0 Ingrowing nail; L03.031 Cellulitis of right toe; I25.10 Atherosclerotic heart disease of native coronary artery without angina pectoris; F41.1 Generalized anxiety disorder; D63.8 Anemia in other chronic diseases classified elsewhere; E11.65 Type 2 diabetes mellitus with hyperglycemia; L97.519 Non-pressure chronic ulcer of other part of right foot with unspecified severity; F32.9 Major depressive disorder, single episode, unspecified; E78.00 Pure hypercholesterolemia, unspecified; Z79.4 Long term (current) use of insulin; Z87.01 Personal history of pneumonia (recurrent); Z95.5 Presence of coronary angioplasty implant and graft; Z87.891 Personal history of nicotine dependence

== ENCOUNTER 2017-09-10 11:38 | Inpatient (IN) | payer MEDICARE, OTHER ==
[2017-09-10 11:48] VITALS: BMI 18.3
[2017-09-10 12:24] LABS: BASO # 0.04 [, K/mm3] (0.0-2.0); BASO % 0.5 % (0.0-3.0); EOS # 0.9 (0.0-0.7); EOS % 10.6 % (1.5-5.0); GRAN # 5.8 (1.4-6.5); GRAN % 66.8 % (50.0-68.0); HEMOGLOBIN 10.4 g/dL (14.0-18.0); LYMPH % 11.2 % (22.0-35.0); MEAN CELL VOLUME 99.1 fl (80.0-105.0); MEAN CORPUSCULAR HEMOGLOBIN 30.7 pg (25.0-35.0); MEAN PLATELET VOLUME 11.6 fl (7.0-11.0); MONO % 10.9 % (1.0-6.0); RBC 3.39 [, 10^6/uL] (3.5-6.1); RED CELL DISTRIBUTION WIDTH 15.1 % (11.5-14.5); WHITE BLOOD COUNT 8.7 [, 10^3/ul] (4.5-11.0)
[2017-09-10 12:28] LABS: INR 1.19 (0.93-1.08); PARTIAL THROMBOPLASTIN TIME 34.2 Seconds (25.1-36.5); PROTHROMBIN TIME 13.7 SECONDS (9.4-12.5)
[2017-09-10 12:38] LABS: VENOUS BLOOD GAS BASE EXCESS 4.2 mmol/L (0.0-2.0); VENOUS BLOOD GAS PO2 58 mm/Hg (30-55); VENOUS BLOOD PH 7.36 (7.32-7.43)
--- NOTE | 2017-09-10 12:38 | RAD ---
HISTORY: ams COMPARISON: 08/26/2017 FINDINGS: LUNGS: No active pulmonary disease. PLEURA: No significant pleural effusion identified, no pneumothorax apparent. CARDIOVASCULAR: Mild cardiomegaly OSSEOUS STRUCTURES: No significant abnormalities. VISUALIZED UPPER ABDOMEN: Normal. OTHER FINDINGS: There is a right-sided PICC line that terminates at the junction of the SVC and right atrium IMPRESSION: No active disease.
[2017-09-10 12:43] LABS: ALB/GLOB RATIO 1.2 (1.1-1.8); ALBUMIN 3.5 g/dL (3.0-4.8); CALCIUM 8.9 mg/dL (8.4-10.5); TROPONIN I 0.24 ng/mL
--- NOTE | 2017-09-10 13:38 | CT ---
PROCEDURE: CT HEAD WITHOUT CONTRAST. HISTORY: r/o ICH COMPARISON: 01/13/2017 CT TECHNIQUE: Axial computed tomography images were obtained through the head/brain without intravenous contrast. Radiation dose: Total exam DLP = 697 mGy-cm. This CT exam was performed using one or more of the following dose reduction techniques: Automated exposure control, adjustment of the mA and/or kV according to patient size, and/or use of iterative reconstruction technique. FINDINGS: HEMORRHAGE: No intracranial hemorrhage. BRAIN: No mass effect or edema. No atrophy or chronic microvascular ischemic changes. VENTRICLES: Unremarkable. No hydrocephalus. CALVARIUM: Unremarkable. PARANASAL SINUSES: Unremarkable as visualized. No significant inflammatory changes. MASTOID AIR CELLS: Unremarkable as visualized. No inflammatory changes. OTHER FINDINGS: None. IMPRESSION: No acute intracranial findings
[2017-09-10] MEDS ORDERED: Vancomycin 1gm in NS 250ml 1 GM/250 ML BAG IVPB STA (14:19)
[2017-09-10] MEDS ORDERED: Piperacillin/Tazobact 3.375 gm 100 ML IVPB STA (14:19)
--- NOTE | 2017-09-10 14:25 | RAD ---
PROCEDURE: Right Foot Radiographs. HISTORY: r/o osteo/fx COMPARISON: None. FINDINGS: BONES: Normal. No fracture. JOINTS: Normal. SOFT TISSUES: Normal. OTHER FINDINGS: None. IMPRESSION: Normal right foot radiographs.
--- NOTE | 2017-09-10 15:02 | ED PDOC ---
Arrival/HPI - General Chief Complaint: Altered Mental Status Time Seen by Provider: 09/10/17 11:57 Historian: Patient - History of Present Illness Narrative History of Present Illness (Text): 09/10/17 14:00 Jf Amos is a 67 year old male, whose past medical history includes COPD and diabetes, who presents to the emergency department accompanied by , complaining of intermittent changes in mental status and worsening right great toe infection. Patient denies fever, cough, or shortness of breath. Patient notes having his last dialysis two days ago. No other complaints were made. Time/Duration: < week Symptom Onset: Sudden Symptom Course: Worsening Context: Home Past Medical History - Provider Review Nursing Documentation Reviewed: Yes - Infectious Disease Hx of Infectious Diseases: None - Tetanus Immunization Tetanus Immunization: Unknown - Cardiac Hx Pacemaker: No - Pulmonary Hx Respiratory Disorders: Yes Hx Chronic Obstructive Pulmonary Disease (COPD): Yes - Neurological Hx Neurological Disorder: Yes Hx Dizziness: Yes - HEENT Hx HEENT Disorder: (WEARS RX GLASSES) - Renal Hx [place]: [place] [facility] [place] - Endocrine/Metabolic Hx Endocrine Disorders: Yes Hx Diabetes Mellitus Type 1: Yes - Hematological/Oncological Hx Blood Transfusions: No Hx Blood Transfusion Reaction: No - Integumentary Other/Comment: hx of wounds due to diabetes multiple skin discolorations and dry skin both legs, left great toe swelling pain color deep red and brown skin areas around toenail, generalized dry itchy skin - Musculoskeletal/Rheumatological Hx Musculoskeletal Disorders: Yes - Gastrointestinal Hx Gastrointestinal Disorders: Yes - Genitourinary/Gynecological Hx Genitourinary Disorders: No Hx Prostate Problems: Yes - Psychiatric Hx Emotional Abuse: No Hx Physical Abuse: No Hx Substance Use: No - Surgical History Other/Comment: shunt in L arm. Picc VJ - Anesthesia Hx Anesthesia: Yes Hx Anesthesia Reactions: No Hx Malignant Hyperthermia: No - Suicidal Assessment Feels Threatened In Home Enviroment: No Family/Social History - Physician Review Nursing Documentation Reviewed: Yes Family/Social History: Unknown Family HX Smoking Status: Former Smoker Hx Alcohol Use: No Hx Substance Use: No Hx Substance Use Treatment: No Allergies/Home Meds Allergies/Adverse Reactions: Allergies No Known Allergies Allergy (Verified 09/10/17 12:03) Home Medications: Home Meds Medication Instructions Recorded Confirmed Unobtainable 09/10/17 09/10/17 Review of Systems - Physician Review All systems were reviewed & negative as marked: Yes - Review of Systems Constitutional: absent: Fevers Respiratory: absent: SOB Cardiovascular: absent: Chest Pain Musculoskeletal: Other (great toe infection ) Psychiatric: Other (changes in mental status ) Physical Exam Vital Signs Reviewed: Yes Vital Signs Temp Pulse Resp BP Pulse Ox 09/10/17 15:27 98.3 F 86 18 109/69 98 09/10/17 13:24 83 18 117/82 99 09/10/17 11:39 99.4 F 85 16 106/74 100 Temperature: Afebrile Blood Pressure: Normal Pulse: Regular Respiratory Rate: Normal Appearance: Positive for: Well-Appearing, Non-Toxic, Comfortable Pain Distress: None Mental Status: Positive for: Alert and Oriented X 3 Finger Stick Blood Glucose: 165 - Systems Exam Head: Present: Atraumatic, Normocephalic Pupils: Present: PERRL Extroacular Muscles: Present: EOMI Conjunctiva: Present: Normal Mouth: Present: Moist Mucous Membranes Neck: Present: Normal Range of Motion Respiratory/Chest: Present: Clear to Auscultation, Good Air Exchange. No: Respiratory Distress, Accessory Muscle Use Cardiovascular: Present: Murmurs. No: Regular Rate and Rhythm, Normal S1, S2 Abdomen: Present: Normal Bowel Sounds. No: Tenderness, Distention, Peritoneal Signs Upper Extremity: Present: Normal Inspection, Normal ROM, NORMAL PULSES, Neurovascularly Intact, Capillary Refill < 2s, Other (left upper extremity AV graft). No: Cyanosis, Edema, Tenderness, Swelling, Erythema, Deformity Lower Extremity: Present: Normal Inspection, NORMAL PULSES, Normal ROM, Capillary Refill < 2 s, Other (right great toe gangreen). No: Edema, Tenderness , Swelling Neurological: Present: GCS=15, CN II-XII Intact, Speech Normal Skin: Present: Warm, Dry, Normal Color. No: Rashes Psychiatric: Present: Alert, Oriented x 3, Normal Insight, Normal Concentration Medical Decision Making ED Course and Treatment: 09/10/17 Impression: 67 year old male with systolic murmur and right great toe gangreen. Plan: -- CT lower extremity -- Labs -- Urinalysis -- Reassess and disposition Progress Notes: - Lab Interpretations Lab Results: 09/10/17 11:50 09/10/17 11:50 Lab Results 09/10/17 12:33: pO2 58 H, VBG pH 7.36, VBG pCO2 55.0, VBG HCO3 31.1 H, VBG Total CO2 32.8 H, VBG O2 Sat (Calc) 87.9 H, VBG Base Excess 4.2 H, VBG Potassium 3.8, Glucose 169 H, Lactate 1.4, FiO2 21.0, Sodium 132.0, Chloride 93.0 L, Venous Blood Potassium 3.8 09/10/17 11:50: Sodium 134, Potassium 3.8, Chloride 91 L, Carbon Dioxide 28, Anion Gap 19, BUN 58 H, Creatinine 7.7 H* D, Est GFR ( Amer) 9, Est GFR ( Non-Af Amer) 7, Random Glucose 167 H, Calcium 8.9, Total Bilirubin 0.8, AST 36, ALT 64 H, Alkaline Phosphatase 130 H, Troponin I 0.24 H* D, Total Protein 6.4, Albumin 3.5, Globulin 2.9, Albumin/Globulin Ratio 1.2 09/10/17 11:50: PT 13.7 H, INR 1.19 H, APTT 34.2 09/10/17 11:50: WBC 8.7, RBC 3.39 L, Hgb 10.4 L, Hct 33.6 L, MCV 99.1, MCH 30.7 , MCHC 31.0, RDW 15.1 H, Plt Count 108 L, MPV 11.6 H, Gran % 66.8, Lymph % (Auto ) 11.2 L, Elk % (Auto) 10.9 H, Eos % (Auto) 10.6 H, Baso % (Auto) 0.5, Gran # 5.80, Lymph # 1.0 L, Elk # 1.0 H, Eos # 0.9 H, Baso # 0.04 I have reviewed the lab results: Yes - RAD Interpretation Radiology Orders: 09/10/17 11:56 CHEST PORTABLE [RAD] Stat 09/10/17 12:19 FOOT RIGHT GREAT TOE ROUTINE [RAD] Stat 09/10/17 12:20 HEAD W/O CONTRAST [CT] Stat 09/10/17 14:18 EXT LOWER W/O CONTRAST RIGHT [CT] 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 - Medication Orders Current Medication Orders: Discontinued Medications Vancomycin HCl (Vancomycin 1gm) 1 gm in 250 mls @ 167 mls/hr IVPB STAT [facility] PRN Reason: Protocol Stop: 09/10/17 15:48 Last Admin: 09/10/17 15:24 Dose: 167 mls/hr eMAR Start Stop Document 09/10/17 15:24 SRE (Rec: 09/10/17 15:27 SRE [facility] [id number]) Intravenous Solution Start Date 09/10/17 Start Time 15:00 End Date 09/10/17 End time 16:30 Total Infusion Time 90 Piperacillin Sod/Tazobactam Sod (Zosyn 3.375 In Ns 100ml) 100 mls @ 200 mls/hr IVPB STAT STA PRN Reason: Protocol Stop: 09/10/17 14:48 - Scribe Statement The provider has reviewed the documentation as recorded by the Addis Palafox Provider Scribe Attestation: All medical record entries made by the Scribe were at my direction and personally dictated by me. I have reviewed the chart and agree that the record accurately reflects my personal performance of the history, physical exam, medical decision making, and the department course for this patient. I have also personally directed, reviewed, and agree with the discharge instructions and disposition. Disposition/Present on Arrival - Present on Arrival Any Indicators Present on Arrival: No History of DVT/PE: No History of Uncontrolled Diabetes: No Urinary Catheter: No History of Decub. Ulcer: No History Surgical Site Infection Following: None - Disposition Have Diagnosis and Disposition been Completed?: Yes Diagnosis: Gangrene of toe of right foot Disposition: HOSPITALIZED Disposition Time: 13:45 Condition: FAIR
--- NOTE | 2017-09-10 16:25 | CT ---
PROCEDURE: CT of the right foot without contrast HISTORY: ? osteo of right foot/ankle COMPARISON: TECHNIQUE: Radiation dose: Total exam DLP = 327 mGy-cm. This CT exam was performed using one or more of the following dose reduction techniques: Automated exposure control, adjustment of the mA and/or kV according to patient size, and/or use of iterative reconstruction technique. FINDINGS: There is no evidence of bony destruction to suggest osteomyelitis. There is also no evidence of fracture. No significant degenerative changes. IMPRESSION: No evidence of osteomyelitis
--- NOTE | 2017-09-10 18:31 | CP.PCM.CON ---
History of Present Illness - History of Present Illness History of Present Illness: GENERAL SURGERY CONSULT NOTE FOR DR. MONTES 67yo M with PMHx of ESRD on HD, DM, HTN, COPD, osteomyelitis of right 1st toe presents to the ED today with complaints of intermittent AMS and worsening right toe pain. He has had pain for about 4 months. Patient was previously admitted a month ago and treated for osteomyelitis of right 1st toe. At that time, he was seen by podiatry Dr. Smith. He had seen an outpatient liquor establishment manager as well and seen a vascular surgeon as an outpatient for workup of PVD. Per the patient, he had a procedure to open up the arteries on his left leg but not his right. Per the patient, his liquor establishment manager told him he needs an amputation of the toe. PMHx: ESRD on HD, DM, HTN, COPD, osteomyelitis of right 1st toe Surgeries: cardiac stent Allergies: none Social history: former smoker Review of Systems - Review of Systems All systems: reviewed and no additional remarkable complaints except (as per HPI ) Past Patient History - Infectious Disease Hx of Infectious Diseases: None - Tetanus Immunizations Tetanus Immunization: Unknown - Past Medical History & Family History Past Medical History?: Yes - Past Social History Smoking Status: Former Smoker - CARDIAC Hx Pacemaker: No - PULMONARY Hx Respiratory Disorders: Yes Hx Chronic Obstructive Pulmonary Disease (COPD): Yes - NEUROLOGICAL Hx Neurological Disorder: Yes Hx Dizziness: Yes - HEENT Hx HEENT Problems: (WEARS RX GLASSES) - RENAL Hx Dialysis: Yes ([place] [facility] [place] - ENDOCRINE/METABOLIC Hx Endocrine Disorders: Yes Hx Diabetes Mellitus Type 1: Yes - HEMATOLOGICAL/ONCOLOGICAL Hx Blood Transfusions: No Hx Blood Transfusion Reaction: No - INTEGUMENTARY Other/Comment: hx of wounds due to diabetes multiple skin discolorations and dry skin both legs, left great toe swelling pain color deep red and brown skin areas around toenail, generalized dry itchy skin - MUSCULOSKELETAL/RHEUMATOLOGICAL Hx Musculoskeletal Disorders: Yes - GASTROINTESTINAL Hx Gastrointestinal Disorders: Yes - GENITOURINARY/GYNECOLOGICAL Hx Genitourinary Disorders: No Hx Prostate Problems: Yes - PSYCHIATRIC Hx Emotional Abuse: No Hx Physical Abuse: No Hx Substance Use: No - SURGICAL HISTORY Other/Comment: shunt in L arm. Picc VJ - ANESTHESIA Hx Anesthesia: Yes Hx Anesthesia Reactions: No Hx Malignant Hyperthermia: No Meds Allergies/Adverse Reactions: Allergies Allergy/AdvReac Type Severity Reaction Status Date / Time No Known Allergies Allergy Verified 09/10/17 12:03 Physical Exam - Constitutional Appears: Non-toxic, No Acute Distress, Chronically Ill - Respiratory Exam Respiratory Exam: NORMAL BREATHING PATTERN. absent: Respiratory Distress - Cardiovascular Exam Cardiovascular Exam: +S1, +S2 - GI/Abdominal Exam GI & Abdominal Exam: Soft. absent: Distended, Firm, Tenderness - Extremities Exam Additional comments: Right 1st toe: distal toe is black and cold. Right foot cool to touch but dorsalis pedis was palpable. Tender to touch. - Neurological Exam Neurological exam: Alert, CN II-XII Intact - Psychiatric Exam Psychiatric exam: Normal Affect, Normal Mood - Skin Skin Exam: Normal Color, Warm Results - Vital Signs Recent Vital Signs: Last Vital Signs Temp 98.3 F 09/10/17 15:27 Pulse 86 09/10/17 15:27 Resp 18 09/10/17 15:27 BP 109/69 09/10/17 15:27 Pulse Ox 98 09/10/17 15:27 - Labs Result Diagrams: 09/10/17 11:50 09/10/17 11:50 Assessment & Plan - Assessment and Plan (Free Text) Assessment: 67yo M with PMHx of ESRD on HD, DM, HTN, COPD, osteomyelitis of right 1st toe. Surgery consulted for necrotic right toe. - Afebrile, VSS - CT: negative for evidence of osteomyelitis - Foot X-ray: normal - Distal toe may need amputation - WIll discuss plan with Dr. Leon Edwards PGY-3
[2017-09-10] MEDS ORDERED: Sodium Chloride 0.9% 1,000 ML IV SCH (20:00)
[2017-09-10] MEDS: Albuterol-Ipratrop 3 mg / 0.5 (3 ml) UD IH SCH (20:08)
--- NOTE | 2017-09-10 20:42 | CARD ---
APPROVED REPORT EKG Measurement Heart [id number] <Conclusion> Normal sinus rhythm Possible Left atrial enlargement Cannot rule out Inferior infarct, age undetermined Abnormal ECG
--- NOTE | 2017-09-10 21:52 | HP ---
HISTORY OF PRESENT ILLNESS: Mr. Amos is a 67-year-old male, brought to the ED by the for altered mental status. The is complaining that he has altered mental status off and on since yesterday. He has right toe osteomyelitis. He has been getting antibiotic as outpatient. He has end-stage renal disease, currently on hemodialysis. The last hemodialysis was on Monday. The patient is disoriented. He is awake, alert, not communicative. He also has diabetes mellitus type 2. PAST MEDICAL HISTORY: Endstage renal disease, on hemodialysis, osteomyelitis of the right toe, peripheral vascular disease, diabetes mellitus type 2, benign prostatic hyperplasia. FAMILY HISTORY: Noncontributory. PERSONAL HISTORY: Former smoker, no history of alcohol abuse. ALLERGIES: NO KNOWN DRUG ALLERGIES. HOME MEDICATION: Unable to obtain. Aspirin 81 mg daily, Plavix, Prozac 20 mg daily, Imdur 60 mg daily. Medication history recovered from the previous admission, from the hospitalization. REVIEW OF SYSTEMS: As per HPI. Rest of 12-point review of systems reviewed and negative. PHYSICAL EXAMINATION: GENERAL: Comfortable in bed in no acute distress. VITAL SIGNS: Temperature 99.8, heart rate 85 per minute, respiratory rate 16 per minute, blood pressure 106/74, . HEENT: Pallor positive. NECK: No lymphadenopathy. CHEST: Air entry present and equal bilaterally. No added sounds. CARDIOVASCULAR: S1 and S2 normal. No murmur, no gallop. ABDOMEN: Soft, nontender. No hepatosplenomegaly. EXTREMITIES: Right toe, blackish color with area of cellulitis extending up to the mid calf. Mild erythema present. No edema of the leg. LABORATORY DATA: White count 8.7, hemoglobin 10.4, hematocrit 33.6, platelet count 108. Sodium 134, potassium 3.8, BUN is 58, creatinine 7.7, glucose 167, INR 1.1. Chest x-ray, no infiltrates. ASSESSMENT: 1. Altered mental status. 2. Right toe gangrene. 3. Right leg cellulitis. 4. Osteomyelitis of the right leg. 5. Diabetes mellitus type 2. 6. Chronic anemia. PLAN: He will be admitted to the hospital tele monitoring. Surgical consultation, Dr. Quintero, requested. Endstage renal disease, on hemodialysis. He will be dialyzed on Monday. IV fluids at 60 mL an hour as he is also not able to take orally. Oral intake poor. We will continue aspirin 81 mg daily, Plavix 75 mg daily. He got a dose of vancomycin and Zosyn in the ER. We will consult Dr. Mane, ID consult. CAT scan of the right leg ordered. CAT scan results reviewed. No in the leg. He might need amputation of the right toe. We will await Surgery input. [facility] Pharmacy will be contacted for accurate medication list for the patient, as the does not know what medication he is taking. Poonam Oakley MD
[2017-09-11] MEDS: Albuterol-Ipratrop 3 mg / 0.5 (3 ml) UD IH SCH ×4 (02:11→19:55)
[2017-09-11] MEDS ORDERED: Oxycodone/Acetaminophen 5/325 mg Tab PO STA (04:10)
--- NOTE | 2017-09-11 04:10 | CP.PCM.PN ---
Subjective - Date & Time of Evaluation Date of Evaluation: 09/11/17 Time of Evaluation: 04:15 - Subjective Subjective: Seen at bedside. Has been somewhat confused. Complains of right big toe pain. Has no other complaints now. Medical record was reviewed. This 67 year old male was admitted with altered mental status, right toe osteomyelitis. Has PMH of PVD, DM II, OM of right big toe, BPH , ESRD on hemodialysis. Objective - Vital Signs/Intake and Output Vital Signs (last 24 hours): Temp Pulse Resp BP Pulse Ox 98.3 F 88 18 109/69 98 09/10/17 18:19 09/10/17 20:09 09/10/17 18:19 09/10/17 18:19 09/10/17 15:27 - Medications Medications: Current Medications Albuterol/Ipratropium (Duoneb 3 Mg/0.5 Mg (3 Ml) Ud) 3 ml IH [id number] [facility] Last Admin: 09/11/17 02:11 Dose: 3 ml Aspirin (Aspirin Chewable) 81 mg PO DAILY [facility] Clonazepam (Klonopin) 0.5 mg PO BID [facility] PRN Reason: Protocol Clopidogrel Bisulfate (Plavix) 75 mg PO DAILY [facility] Sodium Chloride (Sodium Chloride 0.9%) 1,000 mls @ 60 mls/hr IV .[id number] [facility] Isosorbide Mononitrate (Imdur) 60 mg PO DAILY [facility] - Labs Labs: PT 13.7 SECONDS (9.4-12.5) H 09/10/17 11:50 INR 1.19 (0.93-1.08) H 09/10/17 11:50 APTT 34.2 Seconds (25.1-36.5) 09/10/17 11:50 Most Recent Lab Values WBC 8.7 10^3/ul (4.5-11.0) 09/10/17 11:50 RBC 3.39 10^6/uL (3.5-6.1) L 09/10/17 11:50 Hgb 10.4 g/dL (14.0-18.0) L 09/10/17 11:50 Hct 33.6 % (42.0-52.0) L 09/10/17 11:50 MCV 99.1 fl (80.0-105.0) 09/10/17 11:50 MCH 30.7 pg (25.0-35.0) 09/10/17 11:50 MCHC 31.0 g/dl (31.0-37.0) 09/10/17 11:50 RDW 15.1 % (11.5-14.5) H 09/10/17 11:50 Plt Count 108 10^3/uL (120.0-450.0) L 09/10/17 11:50 MPV 11.6 fl (7.0-11.0) H 09/10/17 11:50 Gran % 66.8 % (50.0-68.0) 09/10/17 11:50 Lymph % (Auto) 11.2 % (22.0-35.0) L 09/10/17 11:50 [place] % (Auto) 10.9 % (1.0-6.0) H 09/10/17 11:50 Eos % (Auto) 10.6 % (1.5-5.0) H 09/10/17 11:50 Baso % (Auto) 0.5 % (0.0-3.0) 09/10/17 11:50 Gran # 5.80 (1.4-6.5) 09/10/17 11:50 Lymph # 1.0 (1.2-3.4) L 09/10/17 11:50 [place] # 1.0 (0.1-0.6) H 09/10/17 11:50 Eos # 0.9 (0.0-0.7) H 09/10/17 11:50 Baso # 0.04 K/mm3 (0.0-2.0) 09/10/17 11:50 PT 13.7 SECONDS (9.4-12.5) H 09/10/17 11:50 INR 1.19 (0.93-1.08) H 09/10/17 11:50 APTT 34.2 Seconds (25.1-36.5) 09/10/17 11:50 pO2 58 mm/Hg (30-55) H 09/10/17 12:33 VBG pH 7.36 (7.32-7.43) 09/10/17 12:33 VBG pCO2 55.0 (40-60) 09/10/17 12:33 VBG HCO3 31.1 mmol/l (21-28) H 09/10/17 12:33 VBG Total CO2 32.8 mmol.L (22-28) H 09/10/17 12:33 VBG O2 Sat (Calc) 87.9 % (40-65) H 09/10/17 12:33 VBG Base Excess 4.2 mmol/L (0.0-2.0) H 09/10/17 12:33 VBG Potassium 3.8 mmol/L (3.6-5.2) 09/10/17 12:33 Sodium 132.0 mmol/L (132-148) 09/10/17 12:33 Chloride 93.0 mmol/L (98-107) L 09/10/17 12:33 Glucose 169 mg/dl (75-110) H 09/10/17 12:33 Lactate 1.4 mmol/L (0.7-2.1) 09/10/17 12:33 FiO2 21.0 % 09/10/17 12:33 Sodium 134 mmol/L (132-148) 09/10/17 11:50 Potassium 3.8 mmol/L (3.6-5.0) 09/10/17 11:50 Chloride 91 mmol/L (98-107) L 09/10/17 11:50 Carbon Dioxide 28 mmol/L (21-33) 09/10/17 11:50 Anion Gap 19 (10-20) 09/10/17 11:50 BUN 58 mg/dL (7-21) H 09/10/17 11:50 Creatinine 7.7 mg/dl (0.8-1.5) H* D 09/10/17 11:50 Est GFR ( Amer) 9 09/10/17 11:50 Est GFR (Non-Af Amer) 7 09/10/17 11:50 Random Glucose 167 mg/dL (70-110) H 09/10/17 11:50 Calcium 8.9 mg/dL (8.4-10.5) 09/10/17 11:50 Total Bilirubin 0.8 mg/dL (0.2-1.3) 09/10/17 11:50 AST 36 U/L (17-59) 09/10/17 11:50 ALT 64 U/L (7-56) H 09/10/17 11:50 Alkaline Phosphatase 130 U/L (38-126) H 09/10/17 11:50 Troponin I 0.24 ng/mL H* D 09/10/17 11:50 Total Protein 6.4 g/dL (5.8-8.3) 09/10/17 11:50 Albumin 3.5 g/dL (3.0-4.8) 09/10/17 11:50 Globulin 2.9 gm/dL 09/10/17 11:50 Albumin/Globulin Ratio 1.2 (1.1-1.8) 09/10/17 11:50 Venous Blood Potassium 3.8 mmol/L (3.6-5.2) 09/10/17 12:33 - Constitutional Appears: Well, No Acute Distress - Head Exam Head Exam: ATRAUMATIC, NORMAL INSPECTION, NORMOCEPHALIC - Eye Exam Eye Exam: Normal appearance - ENT Exam ENT Exam: Normal External Ear Exam - Neck Exam Neck Exam: Normal Inspection - Respiratory Exam Respiratory Exam: NORMAL BREATHING PATTERN - Cardiovascular Exam Cardiovascular Exam: absent: JVD - GI/Abdominal Exam GI & Abdominal Exam: absent: Distended - Rectal Exam Rectal Exam: Deferred - Exam Additional comments: Deferred. - Extremities Exam Additional comments: Right big toe has necrotic, ischemic changes. - Back Exam Back Exam: NORMAL INSPECTION - Neurological Exam Neurological Exam: Altered, Awake - Psychiatric Exam Psychiatric exam: Normal Affect, Normal Mood - Skin Skin Exam: Normal Color Assessment and Plan - Assessment and Plan (Free Text) Assessment: Right big toe pain. Right big toe necrosis. PVD. ESRD on HD. Osteomyelitis right big toe. DM II. BPH. Plan: Percocet 5/325 I PO now. Continue management as per PMD.
[2017-09-11 09:34] LABS: ALB/GLOB RATIO 1.1 (1.1-1.8); ALBUMIN 3.2 g/dL (3.0-4.8); MAGNESIUM 2.5 mg/dL (1.7-2.2)
[2017-09-11 09:51] LABS: BASO # 0.08 [, K/mm3] (0.0-2.0); BASO % 1.4 % (0.0-3.0); EOS # 0.5 (0.0-0.7); EOS % 8.6 % (1.5-5.0); GRAN # 4.33 (1.4-6.5); GRAN % 74.2 % (50.0-68.0); LYMPH # 0.7 (1.2-3.4); LYMPH % 11.3 % (22.0-35.0); MEAN CORPUSCULAR HEMOGLOBIN 30.4 pg (25.0-35.0); MEAN CORPUSCULAR HGB CONC 32.4 g/dl (31.0-37.0); MEAN PLATELET VOLUME 12.3 fl (7.0-11.0); MONO # 0.3 (0.1-0.6); MONO % 4.5 % (1.0-6.0); RBC 3.29 [, 10^6/uL] (3.5-6.1); RED CELL DISTRIBUTION WIDTH 14.7 % (11.5-14.5); WHITE BLOOD COUNT 5.8 [, 10^3/ul] (4.5-11.0)
[2017-09-11 09:54] LABS: MEAN CELL VOLUME 93.9 fl (80.0-105.0)
--- NOTE | 2017-09-11 11:59 | CP.PCM.PN ---
Subjective - Date & Time of Evaluation Date of Evaluation: 09/11/17 Time of Evaluation: 12:15 - Subjective Subjective: GENERAL SURGERY CONSULT NOTE FOR DR. MONTES Patient has been seen and examined. Patient is AAOx3. He denies any fevers or chills. Still complains of pain in the right big toe. He also states that he is feeling similar pain in the left big toe. Objective - Vital Signs/Intake and Output Vital Signs (last 24 hours): Temp Pulse Resp BP Pulse Ox 97.0 F L 73 16 130/80 91 L 09/11/17 07:30 09/11/17 07:30 09/11/17 07:30 09/11/17 07:30 09/11/17 07:30 Intake and Output: 09/11/17 09/11/17 06:59 18:59 Intake Total 0 Balance 0 - Medications Medications: Current Medications Albuterol/Ipratropium (Duoneb 3 Mg/0.5 Mg (3 Ml) Ud) 3 ml IH [id number] [facility] Last Admin: 09/11/17 07:26 Dose: 3 ml Aspirin (Aspirin Chewable) 81 mg PO DAILY [facility] Clonazepam (Klonopin) 0.5 mg PO BID [facility] PRN Reason: Protocol Clopidogrel Bisulfate (Plavix) 75 mg PO DAILY [facility] Isosorbide Mononitrate (Imdur) 60 mg PO DAILY [facility] Last Admin: 09/11/17 06:53 Dose: 60 mg Oxycodone HCl (Oxycodone Immediate Release Tab) 5 mg PO Q4H PRN PRN Reason: Pain, moderate (4-7) - Labs Labs: 09/11/17 09:40 09/11/17 09:09 PT 13.7 SECONDS (9.4-12.5) H 09/10/17 11:50 INR 1.19 (0.93-1.08) H 09/10/17 11:50 APTT 34.2 Seconds (25.1-36.5) 09/10/17 11:50 - Additional Findings Additional findings: Constitutional Appears: Non-toxic, No Acute Distress, Chronically Ill - Respiratory Exam Respiratory Exam: NORMAL BREATHING PATTERN. absent: Respiratory Distress - Cardiovascular Exam Cardiovascular Exam: +S1, +S2 - GI/Abdominal Exam GI & Abdominal Exam: Soft. absent: Distended, Firm, Tenderness - Extremities Exam Additional comments: Right 1st toe: distal toe is black and cold. Right foot cool to touch, dorsalis pedis was not palpable. Tender to touch. Left 1st toe: Slightly tender to palpation. - Neurological Exam Neurological exam: Alert, CN II-XII Intact - Psychiatric Exam Psychiatric exam: Normal Affect, Normal Mood - Skin Skin Exam: Normal Color, Warm Assessment and Plan - Assessment and Plan (Free Text) Assessment: 67yo M with PMHx of ESRD on HD, DM, HTN, COPD, osteomyelitis of right 1st toe. Surgery consulted for necrotic right toe. - Afebrile, VSS - CT: negative for evidence of osteomyelitis - Foot X-ray: normal - Recent Lower Ext. Arterial Doppler on 08/27: 1. Limited study due to calcified vessels 2. Possible right SFA, occlusive disease 3. Possible bilateral pedal occlusive disease versus vasoconstriction. Plan: - Distal toe amputation vs BKA possibly needed. Will f/u Podiatry recs - As per Dr. Gonzalez, will plan for peripheral angiogram. - Further Recs as per Dr. Leon Lucia - PGY-1
[2017-09-11] MEDS: oxyCODONE 5 mg Immediate Release Tab PO PRN ×2 (13:19→21:17)
--- NOTE | 2017-09-11 15:33 | CP.PCM.CON ---
<Quinn Aden - Last Filed: 09/11/17 15:28> History of Present Illness - History of Present Illness History of Present Illness: 67 year old male patient known to our service with PMHx ESRD on HD, DM, HTN, COPD, osteomyelitis of right 1st toe seen at bedside today for ischemic, gangrenous changes to distal aspect of right first toe. Patient was in house last week where it was found that he had a small ulceration to the distal aspect of his right hallux with underlying osteomyelitis of the distal phalanx. Today, the hallux looks completely gangrenous to the level of the IPJ. Patient states that his pain is increasing at the toe. 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 He denies any further pedal complaints at this time. Denies any recent N/V/F/C/CP/SOB/D/posterior calf pain when squeezed Review of Systems - Review of Systems Review of Systems: ROS as per HPI Past Patient History - Infectious Disease Hx of Infectious Diseases: None - Tetanus Immunizations Tetanus Immunization: Unknown - Past Medical History & Family History Past Medical History?: Yes - Past Social History Smoking Status: Former Smoker - CARDIAC Hx Pacemaker: No - PULMONARY Hx Respiratory Disorders: Yes Hx Chronic Obstructive Pulmonary Disease (COPD): Yes - NEUROLOGICAL Hx Neurological Disorder: Yes Hx Dizziness: Yes - HEENT Hx HEENT Problems: (WEARS RX GLASSES) - RENAL Hx Dialysis: Yes ([place]WF [place] [facility] [place]) - ENDOCRINE/METABOLIC Hx Endocrine Disorders: Yes Hx Diabetes Mellitus Type 1: Yes - HEMATOLOGICAL/ONCOLOGICAL Hx Blood Transfusions: No Hx Blood Transfusion Reaction: No - INTEGUMENTARY Other/Comment: hx of wounds due to diabetes multiple skin discolorations and dry skin both legs, left great toe swelling pain color deep red and brown skin areas around toenail, generalized dry itchy skin - MUSCULOSKELETAL/RHEUMATOLOGICAL Hx Musculoskeletal Disorders: Yes - GASTROINTESTINAL Hx Gastrointestinal Disorders: Yes - GENITOURINARY/GYNECOLOGICAL Hx Genitourinary Disorders: No Hx Prostate Problems: Yes - PSYCHIATRIC Hx Emotional Abuse: No Hx Physical Abuse: No Hx Substance Use: No - SURGICAL HISTORY Other/Comment: shunt in L arm. Picc VJ - ANESTHESIA Hx Anesthesia: Yes Hx Anesthesia Reactions: No Hx Malignant Hyperthermia: No Meds Allergies/Adverse Reactions: Allergies Allergy/AdvReac Type Severity Reaction Status Date / Time No Known Allergies Allergy Verified 09/10/17 12:03 - Medications Medications: Current Medications Albuterol/Ipratropium (Duoneb 3 Mg/0.5 Mg (3 Ml) Ud) 3 ml IH [id number] [facility] Last Admin: 09/11/17 14:10 Dose: 3 ml Aspirin (Aspirin Chewable) 81 mg PO DAILY [facility] Last Admin: 09/11/17 13:19 Dose: 81 mg Clonazepam (Klonopin) 0.5 mg PO BID [facility] PRN Reason: Protocol Last Admin: 09/11/17 13:19 Dose: 0.5 mg Clopidogrel Bisulfate (Plavix) 75 mg PO DAILY [facility] Last Admin: 09/11/17 13:20 Dose: 75 mg Isosorbide Mononitrate (Imdur) 60 mg PO DAILY [facility] Last Admin: 09/11/17 10:15 Dose: Not Given Oxycodone HCl (Oxycodone Immediate Release Tab) 5 mg PO Q4H PRN PRN Reason: Pain, moderate (4-7) Last Admin: 09/11/17 13:19 Dose: 5 mg Physical Exam - Constitutional Appears: Non-toxic, In Acute Distress - Extremities Exam Additional comments: Vasc: Right DP unpalpable, Left DP weakly palpable, PT pulses bilaterally unpalpable, temperature gradient is cool to cool proximal to distal worse in right lower extremity, 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 No drainage, malodor, purulence, or fluctuance is noted to hallux. No other clinical signs of infection appreciated. Otherwise, no open lesions, wounds, maceration, xerosis, abnormal pigmentation or abnormal growths noted b/l. - Neurological Exam Neurological exam: Alert, Oriented x3 - Psychiatric Exam Psychiatric exam: Normal Affect, Normal Mood Results - Vital Signs Recent Vital Signs: Last Vital Signs Temp 97.0 F L 09/11/17 07:30 Pulse 73 09/11/17 07:30 Resp 16 09/11/17 07:30 BP 130/80 09/11/17 07:30 Pulse Ox 91 L 09/11/17 07:30 - Labs Result Diagrams: 09/11/17 09:40 09/11/17 09:09 Labs: Laboratory Results - last 24 hr 09/11/17 09/11/17 09:09 09:40 WBC 5.8 D RBC 3.29 L Hgb 10.0 L Hct 30.9 L MCV 93.9 D MCH 30.4 MCHC 32.4 RDW 14.7 H Plt Count 99 L MPV 12.3 H Gran % 74.2 H Lymph % (Auto) 11.3 L [place] % (Auto) 4.5 Eos % (Auto) 8.6 H Baso % (Auto) 1.4 Gran # 4.33 Lymph # 0.7 L [place] # 0.3 Eos # 0.5 Baso # 0.08 Sodium 135 Potassium 3.9 Chloride 96 L Carbon Dioxide 25 Anion Gap 19 BUN 65 H Creatinine 8.9 H* Est GFR ( Amer) 7 Est GFR (Non-Af Amer) 6 Random Glucose 147 H Calcium 9.0 Phosphorus 7.9 H Magnesium 2.5 H Total Bilirubin 0.8 AST 25 ALT 51 Alkaline Phosphatase 104 Total Protein 6.1 Albumin 3.2 Globulin 2.9 Albumin/Globulin Ratio 1.1 Assessment & Plan - Assessment and Plan (Free Text) Assessment: 67 year old male patient known to our service with PMHx ESRD on HD, DM, HTN, COPD, osteomyelitis of right 1st toe seen at bedside today for ischemic, gangrenous changes to distal aspect of right first toe Plan: Patient seen and evalauted at bedside with attending Dr. Smith Afebrile, absent leukocytosis Continue IV abx Wound cx from previous admission at right foot grew Enterococcus Faecalis R foot xray 09/10: Normal foot radiographs Lower extremity CT: No evidence of OM Spoke with Dr. Gonzalez: No vascular intervention possible at this time Painted toe with betadine No surgical intervention planned at this time Podiatry will continue to follow while patient is in house - Date & Time Date: 09/11/17 Time: 08:45 <Caroline Smith - Last Filed: 09/15/17 17:56> Meds - Medications Medications: Current Medications Acetaminophen (Tylenol 325mg Tab) 650 mg PO Q4H PRN PRN Reason: Pain, Mild (1-3) Albuterol/Ipratropium (Duoneb 3 Mg/0.5 Mg (3 Ml) Ud) 3 ml IH [id number] [facility] Last Admin: 09/15/17 13:04 Dose: 3 ml Alprazolam (Xanax) 0.5 mg PO HS [facility] PRN Reason: Protocol Last Admin: 09/13/17 21:49 Dose: 0.5 mg Alprazolam (Xanax) 0.5 mg PO Q6H PRN; Protocol PRN Reason: Agitation Aspirin (Aspirin Chewable) 81 mg PO DAILY [facility] Last Admin: 09/15/17 09:10 Dose: Not Given Carvedilol (Coreg) 3.125 mg PO BID [facility] Last Admin: 09/15/17 09:10 Dose: Not Given Clopidogrel Bisulfate (Plavix) 75 mg PO DAILY [facility] Last Admin: 09/15/17 09:11 Dose: Not Given Cefazolin Sodium (Ancef 1gm In Ns) 1 gm in 100 mls @ 100 mls/hr IVPB 1900 [facility] PRN Reason: Protocol Last Admin: 09/14/17 18:39 Dose: 100 mls/hr Isosorbide Mononitrate (Imdur) 60 mg PO DAILY [facility] Last Admin: 09/15/17 09:10 Dose: Not Given Ondansetron HCl (Zofran Inj) 4 mg IVP ONCE PRN PRN Reason: Nausea/Vomiting Oxycodone/Acetaminophen (Percocet 5/325 Mg Tab) 1 tab PO Q4H PRN PRN Reason: Pain, moderate (4-7) Stop: 09/17/17 08:38 Oxycodone/Acetaminophen (Percocet 5/325 Mg Tab) 2 tab PO Q4H PRN PRN Reason: Pain, severe (8-10) Stop: 09/17/17 08:38 Last Admin: 09/15/17 11:13 Dose: 2 tab Results - Vital Signs Recent Vital Signs: Last Vital Signs Temp 97.6 F 09/15/17 07:43 Pulse 90 09/15/17 07:43 Resp 16 09/15/17 07:43 BP 96/61 L 09/15/17 07:43 Pulse Ox 100 09/15/17 07:43 - Labs Result Diagrams: 09/15/17 06:30 09/15/17 06:30 Labs: Laboratory Results - last 24 hr 09/15/17 09/15/17 09/15/17 06:30 06:30 06:30 WBC 8.5 D RBC 2.75 L Hgb 8.3 L Hct 26.8 L MCV 97.5 D MCH 30.2 MCHC 31.0 RDW 14.8 H Plt Count 118 L MPV 12.1 H Sodium 138 Potassium 3.9 Chloride 97 L Carbon Dioxide 28 Anion Gap 17 BUN 51 H Creatinine 7.5 H* Est GFR ( Amer) 9 Est GFR (Non-Af Amer) 7 Random Glucose 148 H Hemoglobin A1c 7.6 H Calcium 9.1 Phosphorus 7.6 H Magnesium 2.4 H Total Bilirubin 0.7 AST 19 ALT 25 Alkaline Phosphatase 110 Total Protein 5.9 Albumin 3.0 Globulin 2.9 Albumin/Globulin Ratio 1.1 Triglycerides 75 Cholesterol 103 L LDL Cholesterol Direct 52 HDL Cholesterol 29 TSH 3rd Generation 09/15/17 06:30 WBC RBC Hgb Hct MCV MCH MCHC RDW Plt Count MPV Sodium Potassium Chloride Carbon Dioxide Anion Gap BUN Creatinine Est GFR ( Amer) Est GFR (Non-Af Amer) Random Glucose Hemoglobin A1c Calcium Phosphorus Magnesium Total Bilirubin AST ALT Alkaline Phosphatase Total Protein Albumin Globulin Albumin/Globulin Ratio Triglycerides Cholesterol LDL Cholesterol Direct HDL Cholesterol TSH 3rd Generation 0.48 Attending/Attestation - Attestation I have personally seen and examined this patient.: Yes I have fully participated in the care of the patient.: Yes I have reviewed all pertinent clinical information: Yes
--- NOTE | 2017-09-11 18:58 | PN ---
DATE: 09/11/2017 TIME: 03:00 p.m. SUBJECTIVE: Mr. Amos is a 67-year-old vasculopath. He has progressive dry gangrene and significant pain of the right great toe. Dr. Tejeda has performed multiple previous bilateral lower extremity angiogram interventions. Mr. Amos is diabetic. He is a previous smoker. I reviewed several of the previous lower extremity arteriograms. Unfortunately, the distal circulation has not been adequately demonstrated. Review of his RODNEY/PVR exam reveals that his waveforms are relatively normal to the right ankle. The metatarsal waveforms however are severely blunted. This is suggestive of pedal/small vessel occlusive disease. I had a brief discussion with Dr. Smith about the situation. We will perform one last angiogram with evaluation of the right tibial and pedal circulation. If endovascular procedures can be performed, they will be. Unfortunately, this may be situation that will eventually require a below-knee amputation. I am not sure given his RODNEY results and clinical presentation that Mr. Amos could heal a foot-sparing procedure. Blane Gonzalez MD MTDRamin
--- NOTE | 2017-09-12 01:08 | CON ---
DATE: 09/11/2017 REASON FOR CONSULTATION: The patient is seen earlier this morning. Chief complaint is right foot infection times several days. HISTORY OF PRESENT ILLNESS: A 67-year-old male with past medical history significant for chronic renal failure on hemodialysis and hypertension, diabetes, hyperlipidemia, and anemia. The patient with a left arm shunt placement who was recently in the hospital in August and had workup of a right hallux phalanx and osteomyelitis and cellulitis of right foot and had been on antibiotics. The patient had been on ertapenem and vancomycin. The patient now is admitted to the Emergency Room with worsening of the right great toe infection. There is no fevers and no chills. No nausea and no vomiting. No chest pain. PAST MEDICAL HISTORY: Significant for chronic renal failure with hemodialysis, hypertension, diabetes, hyperlipidemia, anemia, and chronic obstructive lung disease. PAST SURGICAL HISTORY: Significant for left arm shunt placement and the patient would also have a PICC line. ALLERGIES: THE PATIENT HAS NO KNOWN ALLERGIES. MEDICATIONS AT HOME: Reveals, the patient to be reviewed. ALLERGIES: THE PATIENT HAS NO KNOWN ALLERGIES. PHYSICAL EXAMINATION: GENERAL: On exam, the patient is in bed. VITAL SIGNS: With a temperature of 97, blood pressure is 130/80, respiratory rate of 18, oxygen saturation of 91%, heart rate of 88. HEENT: Examination of HEENT is unremarkable. NECK: Supple. LUNGS: Have decreased breath sounds. HEART: Normal S1 and S2. GASTROINTESTINAL: Abdominal examination is soft and nontender. EXTREMITIES: Examination of the right foot reveals a dry gangrene of the big toe and no discharge, but there is chronic changes. LABORATORY DATA: Laboratory examination reveals the white count of 5.8, hemoglobin of 10, and platelets of 99. Chemistries reveals a BUN of 65, and creatinine of 8.9. Microbiology reveals the blood cultures are negative. The initial toe culture and Enterococcus from 08/29/2017, sensitive to ampicillin is noted. Blood cultures from previous admissions are no growth. DIAGNOSTIC DATA: The patient had a CT scan of the lower extremity. No evidence of bony destruction to suggest osteomyelitis. REVIEW OF ORDERS: Dr. Lucia's progress note is reviewed. Dr. Sigala's progress note is reviewed and Dr. Oakley's history and physical examination is reviewed. ASSESSMENT AND PLAN: This is a 67-year-old male with chronic renal failure, hemodialysis, hypertension, diabetes, hyperlipidemia, anemia, chronic obstructive lung disease, now with a right big toe gangrene, which is dry vascular and podiatric workup in progress. No indication for treating with antibiotics at this point. We would hold off any antibiotics, it is a dry gangrene of the big toe and we will follow with you. Pending further surgical intervention by podiatry and vascular evaluation regarding blood supply. We pulled off on antibiotics. No indication for antibiotic use for this right big toe dry gangrene. Jose Miguel Mane MD
[2017-09-12] MEDS: Albuterol-Ipratrop 3 mg / 0.5 (3 ml) UD IH SCH ×4 (01:34→22:01)
--- NOTE | 2017-09-12 08:34 | CP.PCM.PN ---
Subjective - Date & Time of Evaluation Date of Evaluation: 09/12/17 Time of Evaluation: 08:29 - Subjective Subjective: Patient has been seen and examined at bedside. 1 on 1 sitter states that patient was confused overnight. He continue to complains of tenderness on his lower ext. 1st digits b/l; R>L. Objective - Vital Signs/Intake and Output Vital Signs (last 24 hours): Temp Pulse Resp BP Pulse Ox 97.5 F L 79 20 156/93 H 98 09/11/17 16:00 09/11/17 16:00 09/11/17 16:00 09/11/17 16:00 09/11/17 16:00 Intake and Output: 09/12/17 09/12/17 06:59 18:59 Intake Total 120 Balance 120 - Medications Medications: Current Medications Albuterol/Ipratropium (Duoneb 3 Mg/0.5 Mg (3 Ml) Ud) 3 ml IH [id number] [facility] Last Admin: 09/12/17 01:34 Dose: Not Given Alprazolam (Xanax) 0.5 mg PO [facility] PRN Reason: Protocol Last Admin: 09/11/17 22:19 Dose: 0.5 mg Alprazolam (Xanax) 0.5 mg PO Q6H PRN; Protocol PRN Reason: Agitation Aspirin (Aspirin Chewable) 81 mg PO DAILY [facility] Last Admin: 09/11/17 13:19 Dose: 81 mg Clopidogrel Bisulfate (Plavix) 75 mg PO DAILY [facility] Last Admin: 09/11/17 13:20 Dose: 75 mg Isosorbide Mononitrate (Imdur) 60 mg PO DAILY [facility] Last Admin: 09/11/17 10:15 Dose: Not Given Oxycodone HCl (Oxycodone Immediate Release Tab) 5 mg PO Q4H PRN PRN Reason: Pain, moderate (4-7) Last Admin: 09/11/17 21:17 Dose: 5 mg - Labs Labs: 09/11/17 09:40 09/11/17 09:09 PT 13.7 SECONDS (9.4-12.5) H 09/10/17 11:50 INR 1.19 (0.93-1.08) H 09/10/17 11:50 APTT 34.2 Seconds (25.1-36.5) 09/10/17 11:50 - Additional Findings Additional findings: Constitutional Appears: Non-toxic, No Acute Distress, Chronically Ill - Respiratory Exam Respiratory Exam: NORMAL BREATHING PATTERN. absent: Respiratory Distress - Cardiovascular Exam Cardiovascular Exam: +S1, +S2 - GI/Abdominal Exam GI & Abdominal Exam: Soft. absent: Distended, Firm, Tenderness - Extremities Exam Additional comments: Right 1st toe: distal toe is black and cold. Right foot cool to touch, dorsalis pedis was not palpable. Tender to touch. Left 1st toe: Slightly tender to palpation. Palpable dorsalis pedis pulses on the left side. - Neurological Exam Neurological exam: Alert, CN II-XII Intact - Psychiatric Exam Psychiatric exam: Normal Affect, Normal Mood - Skin Skin Exam: Normal Color, Warm Assessment and Plan - Assessment and Plan (Free Text) Assessment: 67yo M with PMHx of ESRD on HD, DM, HTN, COPD, osteomyelitis of right 1st toe. Surgery consulted for necrotic right toe. - Afebrile, VSS - CT: negative for evidence of osteomyelitis - Foot X-ray: normal - Recent Lower Ext. Arterial Doppler on 08/27: 1. Limited study due to calcified vessels 2. Possible right SFA, occlusive disease 3. Possible bilateral pedal occlusive disease versus vasoconstriction. Plan: - Distal toe amputation vs BKA possibly needed. -Will f/u Podiatry recs - As per Dr. Gonzalez, will plan for peripheral angiogram. Will make plan post angiogram. - Further Recs as per Dr. Leon Lucia - PGY-1
--- NOTE | 2017-09-12 09:20 | PN ---
DATE: 09/11/2017 SUBJECTIVE: The patient has no complaints of any chest pain or shortness of breath. PHYSICAL EXAMINATION: VITAL SIGNS: . GENERAL: The patient is lying in bed, flat, comfortable. HEENT: No oral lesion. Anicteric sclerae. Moist mucosa. NECK: No JVD, adenopathy, or thyromegaly. CARDIOVASCULAR: S1 and S2, regular. No murmurs, rubs, or gallops. LUNGS: Clear to auscultation bilaterally. No wheeze, rales, or rhonchi. ABDOMEN: Bowel sounds are positive, soft, nontender and nondistended. EXTREMITIES: No cyanosis, clubbing or edema. LABORATORY DATA: White count 5.6 and hemoglobin . ASSESSMENT: 1. Right first toe dry gangrene. 2. End-stage renal disease, on hemodialysis. 3. Osteomyelitis of the right first toe. 4. . 5. Chronic anemia secondary hyperparathyroidism. 6. . 7. Peripheral arterial disease. PLAN: The patient is awaiting surgery. I did call the patient's . The patient is on aspirin. He is going to continue with nebulizer treatment . The patient is on Plavix. Dr. Smith is on the case. Additional ordered. Maurice Agarwal MD
--- NOTE | 2017-09-12 10:02 | PN ---
DATE: 09/12/2017 SUBJECTIVE: The patient has no complaints of any chest pain or shortness of breath. No headaches or dizziness. He is confused from his baseline. PHYSICAL EXAMINATION: VITAL SIGNS: Temperature is 97.5, pulse is 79, blood pressure 156/93, and respirations 20. GENERAL: The patient is lying in bed, flat, comfortable. HEENT: No oral lesion. Anicteric sclerae. Moist mucosa. NECK: No JVD, adenopathy, or thyromegaly. CARDIOVASCULAR: S1 and S2, regular. No murmurs, rubs, or gallops. LUNGS: Clear to auscultation bilaterally. No wheeze, rales, or rhonchi. ABDOMEN: Bowel sounds are positive, soft, nontender and nondistended. EXTREMITIES: No cyanosis, clubbing or edema. LABORATORY DATA: White count of 5.8, hemoglobin 10.0. Creatinine is 8.9. ASSESSMENT: 1. Right first toe dry gangrene. 2. Delirium. 3. Osteomyelitis. 4. Diabetes type 2. 5. Chronic anemia. 6. Secondary hyperparathyroidism. PLAN: The patient has osteomyelitis of the right first toe with gangrene. The patient is getting local wound care. The patient had lower extremity Doppler that did show occlusive disease by Doppler. The patient being followed by Dr. Gonzalez. I did review his notes. The patient also being followed by Podiatry. The patient want to continue with aspirin. He is on isosorbide. The patient is on Plavix. He is going to continue with Xanax as needed. He is on the renal diet. I did call the patient's 3 times yesterday, was not able to get in touch with her. We will attempt to try to call her again. Maurice Agarwal MD
[2017-09-12] MEDS: oxyCODONE 5 mg Immediate Release Tab PO PRN ×2 (12:58→20:58)
--- NOTE | 2017-09-12 15:27 | CP.PCM.PN ---
<KeikoQuinn - Last Filed: 09/12/17 15:24> Subjective - Date & Time of Evaluation Date of Evaluation: 09/12/17 Time of Evaluation: 15:24 - Subjective Subjective: 67 year old male patient known to our service with PMHx ESRD on HD, DM, HTN, COPD, osteomyelitis of right 1st toe seen at bedside today for ischemic, gangrenous changes to distal aspect of right first toe. Patient states that he is still having pain in the toe at this time. Is AAO x 3 at examination. Denies any other acute overnight events. Denies any further pedal complaints at this time. Denies N/V/F/C/CP/SOB/D/Posterior calf pain with squeeze Objective - Vital Signs/Intake and Output Vital Signs (last 24 hours): Temp Pulse Resp BP Pulse Ox 97.5 F L 79 20 156/93 H 98 09/11/17 16:00 09/11/17 16:00 09/11/17 16:00 09/11/17 16:00 09/11/17 16:00 Intake and Output: 09/12/17 09/12/17 06:59 18:59 Intake Total 120 Balance 120 - Medications Medications: Current Medications Albuterol/Ipratropium (Duoneb 3 Mg/0.5 Mg (3 Ml) Ud) 3 ml IH [id number] [facility] Last Admin: 09/12/17 13:39 Dose: 3 ml Alprazolam (Xanax) 0.5 mg PO HS [facility] PRN Reason: Protocol Last Admin: 09/11/17 22:19 Dose: 0.5 mg Alprazolam (Xanax) 0.5 mg PO Q6H PRN; Protocol PRN Reason: Agitation Aspirin (Aspirin Chewable) 81 mg PO DAILY [facility] Last Admin: 09/12/17 10:19 Dose: 81 mg Clopidogrel Bisulfate (Plavix) 75 mg PO DAILY [facility] Last Admin: 09/12/17 10:19 Dose: 75 mg Isosorbide Mononitrate (Imdur) 60 mg PO DAILY [facility] Last Admin: 09/12/17 10:19 Dose: 60 mg Oxycodone HCl (Oxycodone Immediate Release Tab) 5 mg PO Q4H PRN PRN Reason: Pain, moderate (4-7) Last Admin: 09/12/17 12:58 Dose: 5 mg - Labs Labs: 09/11/17 09:40 09/11/17 09:09 PT 13.7 SECONDS (9.4-12.5) H 09/10/17 11:50 INR 1.19 (0.93-1.08) H 09/10/17 11:50 APTT 34.2 Seconds (25.1-36.5) 09/10/17 11:50 - Constitutional Appears: Well, Non-toxic, No Acute Distress - Extremities Exam Additional comments: Vasc: Right DP unpalpable, Left DP weakly palpable, PT pulses bilaterally unpalpable, temperature gradient is cool to cool proximal to distal worse in right lower extremity, [employer] delayed to 4 seconds to digits, non pitting edema noted to the right forefoot Ortho: moderate pain with palpation to entire right foot, worst with palpation of right hallux Neuro: epicrtic and protective sensation grossly diminished b/l Derm: Ischemic, dry gangrenous changes noted to right hallux with demarcation occurring at the IPJ - stable. No drainage, malodor, purulence, or fluctuance is noted to hallux. No other clinical signs of infection appreciated. Otherwise , no open lesions, wounds, maceration, xerosis, abnormal pigmentation or abnormal growths noted b/l. - Neurological Exam Neurological Exam: Alert, Awake, Oriented x3 - Psychiatric Exam Psychiatric exam: Normal Affect, Normal Mood Assessment and Plan - Assessment and Plan (Free Text) Assessment: 67 year old male patient known to our service with PMHx ESRD on HD, DM, HTN, COPD, osteomyelitis of right 1st toe seen at bedside today for ischemic, gangrenous changes to distal aspect of right first toe Plan: Patient seen and evaluated at bedside with attending Dr. Vargas Foot xray: Normal radiographic findings LE CT: No signs of OM to foot Continue abx per ID Gangrenous changes painted with betadine Podiatry has no plan for surgical intervention at this time - toe should be left to demarcate and auto-amputate Podiatry will continue to follow while patient is in house Patient to f/u in wound care center after discharge <Dylon Vargas - Last Filed: 09/13/17 15:10> Objective - Vital Signs/Intake and Output Vital Signs (last 24 hours): Temp Pulse Resp BP Pulse Ox 98.1 F 94 H 14 100/63 97 09/13/17 13:28 09/13/17 13:30 09/13/17 13:28 09/13/17 13:28 09/13/17 09:00 Intake and Output: 09/13/17 09/13/17 06:59 18:59 Intake Total 0 Output Total 0 Balance 0 - Medications Medications: Current Medications Acetaminophen (Tylenol 325mg Tab) 650 mg PO Q4H PRN PRN Reason: Pain, Mild (1-3) Albuterol/Ipratropium (Duoneb 3 Mg/0.5 Mg (3 Ml) Ud) 3 ml IH [id number] [facility] Last Admin: 09/13/17 13:24 Dose: Not Given Alprazolam (Xanax) 0.5 mg PO HS [facility] PRN Reason: Protocol Last Admin: 09/13/17 04:06 Dose: Not Given Alprazolam (Xanax) 0.5 mg PO Q6H PRN; Protocol PRN Reason: Agitation Aspirin (Aspirin Chewable) 81 mg PO DAILY [facility] Last Admin: 09/13/17 14:00 Dose: Not Given Clopidogrel Bisulfate (Plavix) 75 mg PO DAILY [facility] Last Admin: 09/13/17 14:00 Dose: Not Given Isosorbide Mononitrate (Imdur) 60 mg PO DAILY [facility] Last Admin: 09/13/17 13:59 Dose: Not Given Oxycodone HCl (Oxycodone Immediate Release Tab) 5 mg PO Q4H PRN PRN Reason: Pain, moderate (4-7) Last Admin: 09/13/17 07:07 Dose: 5 mg - Labs Labs: 09/11/17 09:40 09/11/17 09:09 PT 13.7 SECONDS (9.4-12.5) H 09/10/17 11:50 INR 1.19 (0.93-1.08) H 09/10/17 11:50 APTT 34.2 Seconds (25.1-36.5) 09/10/17 11:50 Attending/Attestation - Attestation I have personally seen and examined this patient.: Yes I have fully participated in the care of the patient.: Yes I have reviewed all pertinent clinical information, including history, physical exam and plan: Yes
--- NOTE | 2017-09-13 01:21 | PN ---
DATE: 09/12/2017 SUBJECTIVE: The patient is in bed, in no acute distress, nontoxic. PHYSICAL EXAMINATION VITAL SIGNS: Temperature is 97, blood pressure is 150/90, respiratory rate of 16. HEENT: Unremarkable. NECK: Supple. LUNGS: Have decreased breath sounds. HEART: Normal S1 and S2. ABDOMEN: Soft. LABORATORY EXAMINATION: Reveals a white count of 5.8, hemoglobin 10, platelets of 99. Chemistries are noted. Review of orders reveals the patient to be off of antibiotics. Microbiology reveals the blood cultures are no growth. Dr. Negro's note is reviewed. ASSESSMENT AND PLAN: This a 67-year-old male who looks much older than stated age with chronically ill and cachectic, in end-stage with a BMI of 18 with chronic renal failure, on hemodialysis, hypertension, diabetes, hyperlipidemia, anemia, left arm shunt placement, now with a right big toe dry gangrene and currently off of antibiotics. Workup with Podiatry and Vascular. We will follow with you. Jose Miguel Mane MD
[2017-09-13] MEDS: oxyCODONE 5 mg Immediate Release Tab PO PRN ×2 (07:07→21:52)
[2017-09-13] MEDS: Albuterol-Ipratrop 3 mg / 0.5 (3 ml) UD IH SCH ×3 (07:22→19:32)
[2017-09-13] MEDS ORDERED: Phenylephrine 10 mg/ml Inj ONE (07:24)
[2017-09-13] MEDS ORDERED: Nitroglycerin 50mg in D5W 50 MG/250 ML BOTTLE IV ONE (07:24)
[2017-09-13] MEDS ORDERED: Iodixanol 320 mg/ml 150 ml Bottle IV ONE ×2 (07:24→09:22)
[2017-09-13] MEDS ORDERED: Iodixanol 320 MG/ML 200 ML BOTTLE IV ONE (07:24)
[2017-09-13] MEDS ORDERED: HEPARIN SODIUM/NS 1,000 ML IV ONE (07:30)
--- NOTE | 2017-09-13 08:01 | PN ---
DATE: 09/13/2017 SUBJECTIVE: The patient has no complaints of any chest pain. No shortness of breath. No headaches. He remains mildly confused. PHYSICAL EXAMINATION: VITAL SIGNS: Temperature is 97.5, pulse is 79, blood pressure 156/92, respirations 20. GENERAL: The patient is lying in bed, flat, comfortable. HEENT: No oral lesion. Anicteric sclerae. Moist mucosa. NECK: No JVD, adenopathy, or thyromegaly. CARDIOVASCULAR: S1 and S2, regular. No murmurs, rubs, or gallops. LUNGS: Clear to auscultation bilaterally. No wheeze, rales, or rhonchi. ABDOMEN: Bowel sounds are positive, soft, nontender and nondistended. EXTREMITIES: No cyanosis, clubbing or edema. In the right first toe, there is a dry gangrene. ASSESSMENT: 1. Right first toe with dry gangrene. 2. Right first toe osteomyelitis. 3. Delirium. 4. Diabetes type 2. 5. Chronic anemia. 6. End-stage renal disease, on hemodialysis. 7. Secondary hypoparathyroidism. 8. Chronic anemia. Podiatry does not have any plans of surgical intervention. The patient was seen by Dr. Quintero yesterday. I did speak to him. The patient is going to continue his dialysis. The patient is to get an angiogram done by Dr. Blane Gonzalez to evaluate the patient's circulation. He is going to continue his Plavix. He is on aspirin as well. The patient is going to continue with Xanax for his anxiety and agitation. He is on oxycodone for pain as well. We will add Tylenol for pain. I did speak to the patient's yesterday to give an update on the patient's diagnosis and plan of care. Answered all of the questions that she had asked. Maurice Agarwal MD
[2017-09-13] MEDS ORDERED: Midazolam 2 MG/2 ML VIAL ONE ×2 (08:41→08:55)
[2017-09-13] MEDS: Lidocaine 2% Inj (20ml) ONE (08:47)
[2017-09-13] MEDS ORDERED: HEPARIN SODIUM/NS 2,000 ML IV ONE (09:01)
--- NOTE | 2017-09-13 12:31 | CP.PCM.PN ---
Subjective - Date & Time of Evaluation Date of Evaluation: 09/13/17 Time of Evaluation: 12:24 - Subjective Subjective: GENERAL SURGERY CONSULT, PROGRESS NOTE FOR DR. MONTES Patient has been seen and examined in the PACU. Patient has no complaints at this time. Objective - Vital Signs/Intake and Output Vital Signs (last 24 hours): Temp Pulse Resp BP Pulse Ox 98.1 F 101 H 12 124/83 97 09/13/17 11:28 09/13/17 11:28 09/13/17 11:28 09/13/17 11:28 09/13/17 09:00 Intake and Output: 09/13/17 09/13/17 06:59 18:59 Intake Total 0 Output Total 0 Balance 0 - Medications Medications: Current Medications Acetaminophen (Tylenol 325mg Tab) 650 mg PO Q4H PRN PRN Reason: Pain, Mild (1-3) Albuterol/Ipratropium (Duoneb 3 Mg/0.5 Mg (3 Ml) Ud) 3 ml IH [id number] [facility] Last Admin: 09/13/17 07:22 Dose: Not Given Alprazolam (Xanax) 0.5 mg PO HS [facility] PRN Reason: Protocol Last Admin: 09/13/17 04:06 Dose: Not Given Alprazolam (Xanax) 0.5 mg PO Q6H PRN; Protocol PRN Reason: Agitation Aspirin (Aspirin Chewable) 81 mg PO DAILY [facility] Last Admin: 09/12/17 10:19 Dose: 81 mg Clopidogrel Bisulfate (Plavix) 75 mg PO DAILY [facility] Last Admin: 09/12/17 10:19 Dose: 75 mg Isosorbide Mononitrate (Imdur) 60 mg PO DAILY [facility] Last Admin: 09/12/17 10:19 Dose: 60 mg Oxycodone HCl (Oxycodone Immediate Release Tab) 5 mg PO Q4H PRN PRN Reason: Pain, moderate (4-7) Last Admin: 09/13/17 07:07 Dose: 5 mg - Labs Labs: 09/11/17 09:40 09/11/17 09:09 PT 13.7 SECONDS (9.4-12.5) H 09/10/17 11:50 INR 1.19 (0.93-1.08) H 09/10/17 11:50 APTT 34.2 Seconds (25.1-36.5) 09/10/17 11:50 - Additional Findings Additional findings: Constitutional Appears: Non-toxic, No Acute Distress, Chronically Ill - Respiratory Exam Respiratory Exam: NORMAL BREATHING PATTERN. absent: Respiratory Distress - Cardiovascular Exam Cardiovascular Exam: +S1, +S2 - GI/Abdominal Exam GI & Abdominal Exam: Soft. absent: Distended, Firm, Tenderness - Extremities Exam Additional comments: Right 1st toe: distal toe is black. Right foot warm to touch, dorsalis pedis was palpable (+1). Currently wrapped. Left 1st toe: Non-tender to palpation today (post-op). Palpable dorsalis pedis pulses on the left side (+2). - Neurological Exam Neurological exam: Alert, CN II-XII Intact - Psychiatric Exam Psychiatric exam: Normal Affect, Normal Mood - Skin Skin Exam: Normal Color, Warm Assessment and Plan - Assessment and Plan (Free Text) Assessment: 67yo M with PMHx of ESRD on HD, DM, HTN, COPD, osteomyelitis of right 1st toe. Surgery consulted for necrotic right toe. Plan: - Afebrile, VSS - CT: negative for evidence of osteomyelitis - Foot X-ray: normal - Recent Lower Ext. Arterial Doppler on 08/27: 1. Limited study due to calcified vessels 2. Possible right SFA, occlusive disease 3. Possible bilateral pedal occlusive disease versus vasoconstriction. - Will follow up with angio report and decide if patient will need surgical intervention - Will discuss with Dr. Montes. Katlyn Lucia - PGY1
--- NOTE | 2017-09-13 19:51 | VASCULAR ---
PROCEDURE: 1. Abdominal aortogram and bilateral lower extremity runoff with right selective views. 2. Proximal and distal right anterior tibial artery angioplasty and stent placement HISTORY: End-stage renal disease. Previous smoker. Severe peripheral vascular disease with dry gangrene right great toe. PHYSICIAN(S): Blane Gonzalez M.D. TECHNIQUE: The relative risks and indications of the procedure were explained to the patient and his and consent obtained. The patient was placed supine on the arteriogram table and the left groin prepped and draped in the usual sterile fashion. Conscious sedation and monitoring were provided throughout the procedure by a nurse. Via a left common femoral artery approach, a 5 Finnish sheath was placed in the left groin. Through the sheath and over a guidewire, a 5 Finnish flush catheter was placed in the abdominal aorta at the level of the renal arteries and a PA DSA abdominal aortogram performed. The catheter was pulled down to the aortic bifurcation and bilateral oblique DSA pelvic arteriograms performed. Overlapping bilateral lower extremity DSA arteriograms were obtained from the inguinal ligaments to the ankles. A 0.035 angled Glidewire was advanced over the bifurcation and placed in the distal right SFA. A 6 Finnish 65 cm destination sheath was placed in the mid right SFA. Heparin 5000 units IV and nitroglycerin in 250 mcg aliquots were given. The critical E centric stenosis of the ostium of the right anterior tibial artery was difficult across. Bronson Huerta a 0.018 double curve glidewire was utilized. A body wire system was used to place a 0.014 support wire. The origin of the right anterior tibial artery was dilated with a 3.5 mm balloon. Next the short segment occlusion in the distal right anterior tibial artery was crossed with a 0.014 Paolo enthesial wire. The distal right anterior tibial artery was dilated with a 2.5 mm balloon. There was a residual stenosis at the occlusion. Subsequently a 3.0 mm coronary stent was placed in the distal right anterior tibial artery. A 4.0 x 18 mm drug-eluting balloon was placed at the ostium of the right anterior tibial artery. Completion angiograms were obtained. Hemostasis was obtained with a Mynx device.. FINDINGS: The renal arteries are atrophic, consistent with dialysis. Extensive calcification of the abdominal aorta is seen. The abdominal aorta is somewhat ectatic. There is a moderate stenosis of the origin of the right common iliac artery. No significant systolic gradient was demonstrated on pull-back pressures. A mckeon the common and external iliac arteries are patent and moderately tortuous. Internal iliac arteries are patent. There is a 70 percent stenosis of the left internal iliac artery origin. Right lower extremity: The right common femoral artery is patent. The right profunda femoral artery is patent. The right superficial femoral artery is calcified diffusely diseased without radiographically significant stenosis. The right popliteal artery is calcified and smoothly disease without radiographically significant stenosis.. There is a critical stenosis at the origin of the right anterior tibial artery. There is severe right tibial and pedal occlusive disease. The right peroneal and posterior tibial arteries are small and continuous. There is a 2 cm occlusion of the distal right anterior tibial artery. There is severe right pedal occlusive disease. The right dorsalis pedis artery is supplied by collaterals. The right plantar arch is not opacified. Left lower extremity: Left common femoral artery is patent. The left profunda femoral artery is patent. The left superficial femoral artery is calcified and smoothly disease without radiographically significant stenosis. The left popliteal artery is calcified and continuous. There is severe left trifurcation and tibial disease. A severe focal stenosis of the origin of the left anterior tibial artery is seen. There is severe disease of the left tibioperoneal trunk.. IMPRESSION: 1.Successful proximal and distal right anterior tibial artery angioplasty and stent placement as described above. 2. Severe bilateral tibial and pedal occlusive disease.
--- NOTE | 2017-09-13 20:26 | PN ---
DATE: 09/13/2017 SUBJECTIVE: The patient is in bed, in no acute distress, we seen early this morning. PHYSICAL EXAMINATION: VITAL SIGNS: Temperature is 98, blood pressure is 120/70, respiratory rate of 16. HEENT: Unremarkable. NECK: Supple. LUNGS: Have decreased breath sounds. HEART: Normal S1 and S2. ABDOMEN: Soft and nontender. LABORATORY EXAMINATION: Reveals a white count of 5.8, hemoglobin of 10, platelets of 99. Chemistries reveal a BUN of 65, creatinine of 8.9, troponin of 0.24. Microbiology reveals the blood cultures are negative and review of orders reveals the patient is off of antibiotics. ASSESSMENT AND PLAN: This a 67-year-old male who appears chronically ill, appears much old than his stated age and cachectic, in end-stage with a BMI of 18 with chronic renal failure, on hemodialysis, hypertension, diabetes, hyperlipidemia, anemia, left shunt placement with a right big toe dry gangrene. Currently off of antibiotics. The patient for cardiac catheterization, vascular workup. Dr. Negro's note is reviewed. Podiatry input, awaiting for an angiogram. We will follow closely with you. Jose Miguel Mane MD
--- NOTE | 2017-09-14 00:14 | PN ---
DATE: 09/13/2017 SUBJECTIVE: This is a 67-[facility]-old [facility] of a gangrenous right big toe. The patient has had an angioplasty with Dr. Gonzalez today. Apparently, he has an anterior tibial that goes into the foot, but he does not have any arch filling. The patient does have a necrotic hallux on right foot, thus the necrosis goes just about the level of the IPJ and there were no signs or symptoms of infection in that foot. PHYSICAL EXAMINATION: VITAL SIGNS: Show a temperature of 97.6 and his pulse rate was 94. MEDICATIONS: His medications are noted on the OCT. He is presently on Plavix and aspirin. At this time, he is not on any antibiotics, and we will give him Ancef prior to the surgery tomorrow. We will do wound cultures at that time. LABORATORY DATA: The patient's labs show white blood cell count of 5.8, his H and H are 10 and 30.9, and his platelets are 99. Chemistry shows a BUN and creatinine of 65 and 8.9. He is being dialyzed as noted. His glucose is 147. Microbiology shows blood cultures no growth. His wound culture in the toe grew Enterococcus in beginning of 08/2017 and he was treated for that while he was here at [facility] at that time. ASSESSMENT: Severe peripheral vascular disease and end-stage renal disease. PLAN OF TREATMENT: He is set for surgery in the morning. I spoke with Dr. Gonzalez as noted above. He still has severe peripheral vascular disease. I will call him again and I am going to attempt to do the surgery, on the Plavix. He will be seen in followup. Caroline Smith DPM
[2017-09-14] MEDS: oxyCODONE 5 mg Immediate Release Tab PO PRN (02:52)
[2017-09-14] MEDS: Albuterol-Ipratrop 3 mg / 0.5 (3 ml) UD IH SCH ×4 (03:02→20:15)
--- NOTE | 2017-09-14 07:15 | CP.PCM.PN ---
Subjective - Date & Time of Evaluation Date of Evaluation: 09/14/17 Time of Evaluation: 07:15 - Subjective Subjective: Pt seen and evaluated at bedside this morning with Dr. Smith prior to right foot surgery. NPO status confirmed after midnight last night. Pt says he is still having moderate to severe pain in the right leg and foot that comes and goes. He describes it as throbbing in nature. Patient's is bedside and inquires about risks and benefits of surgical procedure. Pt denies F/C/N/V/CP/ SOB at this time Objective - Vital Signs/Intake and Output Vital Signs (last 24 hours): Temp Pulse Resp BP Pulse Ox 97.6 F 94 H 18 140/74 97 09/13/17 13:30 09/13/17 15:30 09/13/17 15:30 09/13/17 15:30 09/13/17 09:00 Intake and Output: 09/14/17 09/14/17 06:59 18:59 Intake Total 180 Balance 180 - Medications Medications: Current Medications Acetaminophen (Tylenol 325mg Tab) 650 mg PO Q4H PRN PRN Reason: Pain, Mild (1-3) Albuterol/Ipratropium (Duoneb 3 Mg/0.5 Mg (3 Ml) Ud) 3 ml IH [id number] [facility] Last Admin: 09/14/17 03:02 Dose: Not Given Alprazolam (Xanax) 0.5 mg PO HS [facility] PRN Reason: Protocol Last Admin: 09/13/17 21:49 Dose: 0.5 mg Alprazolam (Xanax) 0.5 mg PO Q6H PRN; Protocol PRN Reason: Agitation Aspirin (Aspirin Chewable) 81 mg PO DAILY [facility] Last Admin: 09/13/17 14:00 Dose: Not Given Clopidogrel Bisulfate (Plavix) 75 mg PO DAILY [facility] Last Admin: 09/13/17 14:00 Dose: Not Given Isosorbide Mononitrate (Imdur) 60 mg PO DAILY [facility] Last Admin: 09/13/17 13:59 Dose: Not Given Oxycodone HCl (Oxycodone Immediate Release Tab) 5 mg PO Q4H PRN PRN Reason: Pain, moderate (4-7) Last Admin: 09/14/17 02:52 Dose: 5 mg - Labs Labs: 09/11/17 09:40 09/11/17 09:09 PT 13.7 SECONDS (9.4-12.5) H 09/10/17 11:50 INR 1.19 (0.93-1.08) H 09/10/17 11:50 APTT 34.2 Seconds (25.1-36.5) 09/10/17 11:50 - Constitutional Appears: Well, Non-toxic, No Acute Distress - Extremities Exam Additional comments: Vasc: Right DP palpable 2/4, PT nonpalpable. Left DP weakly palpable, PT pulseunpalpable. Temperature gradient is warm to cool proximal to distal. CFT delayed but present to digits, non pitting edema noted to the right forefoot Ortho: moderate pain with palpation to entire right foot, worst with palpation of right hallux Neuro: epicrtic and protective sensation grossly diminished B/L Derm: Ischemic, dry gangrenous changes noted to right hallux with demarcation occurring at the IPJ - stable. No drainage, malodor, purulence, or fluctuance is noted to hallux. No other clinical signs of infection appreciated. Otherwise , no open lesions, wounds, maceration, xerosis, abnormal pigmentation or abnormal growths noted B/L - Neurological Exam Neurological Exam: Alert, Awake, Oriented x3 - Psychiatric Exam Psychiatric exam: Normal Affect, Normal Mood Assessment and Plan - Assessment and Plan (Free Text) Assessment: 67 year old male patient known to our service with PMHx ESRD on HD, DM, HTN, COPD, osteomyelitis of right 1st toe seen at bedside today for ischemic, gangrenous changes to distal aspect of right first toe. Pt to go to OR at 7: 30am today for right great toe partial amputation Plan: Patient seen and evaluated at bedside with attending Dr. Smith NPO status confirmed after midnight All risks, benefits and alternatives discussed w patient and family Consent signed by patient to proceed with surgery to right foot Ancef 1g ordered for perioperative prophylaxis Patient will return to floors post-operatively Podiatry will continue to follow patient postoperatively while patient is in house Patient to f/u in wound care center with Dr. Smith after discharge
[2017-09-14] MEDS ORDERED: Lidocaine 2% Inj (20ml) ONE (07:19)
[2017-09-14] MEDS: Lidocaine 2% Inj (20ml) ONE (07:46)
[2017-09-14] MEDS ORDERED: Oxycodone/Acetaminophen 5/325 mg Tab PO PRN (08:37)
[2017-09-14] MEDS ORDERED: HYDROmorphone 0.5 mg/0.5 ml ISec IVP PRN (08:37)
--- NOTE | 2017-09-14 09:15 | OP ---
PROCEDURE DATE: 09/14/2017 THE PATIENT'S AGE: 67. THE PATIENT'S SEX: Male. PREOPERATIVE DIAGNOSIS: Right foot great toe gangrene. POSTOPERATIVE DIAGNOSIS: Right foot great toe gangrene. NAME OF PROCEDURE: Right partial hallux amputation. SURGEON: Caroline Smith DPM. PLUG SHAPER HAND: Rut Madrid DPM, PGY-1. TYPE OF ANESTHESIA: IV sedation with local. ANESTHESIA ADMINISTERED BY: Dr. Trevino. INDICATIONS: The patient is a 67-year-old male with the above diagnosis. The patient has exhausted all conservative treatment at this time and now requires surgical intervention. The patient signed the consent after careful explanation of risks, benefits, complications and alternatives for surgical procedure. No guarantees were given nor implied. NPO status was confirmed prior to taking the patient to the OR. PREPARATION: The patient was brought into the operating room and placed on the operating room table in a supine position. Time-out was performed for identification of the correct patient and procedure. After induction of IV sedation, the patient received a total of 8 mL of 2% lidocaine plain in a digital block fashion to the right hallux. The right foot was then prepped and draped in normal sterile manner and the procedure began. No tourniquet was utilized during the procedure. DESCRIPTION OF PROCEDURE: Attention was drawn to the distal tip of the right hallux where a distal circumferential incision was made using a #15 blade at the level of the interphalangeal joint of the right hallux. The incision was then extended down to the subcutaneous layers down to the level of bone extending into the interphalangeal joint. Using a bone clamp to stabilize the hallux, the distal phalanx was then disarticulated from the foot at the level of the IPJ. Using a sagittal saw, the distal half of the proximal phalanx was resected and passed from the operative field. Using a fresh #15 blade, all necrotic nonviable tissue was then excisionally debrided from the surgical site with additional soft tissue removed to allow for adequate skin closure without tension. The wound was then copiously flushed with sterile saline using a bulb syringe. Distal phalanx of the right hallux as well as the distal aspect of the proximal phalanx were sent to pathology. At this time, a wound culture was taken. The surgical site was then sutured close using 3-0 Vicryl subcutaneous sutures and 3-0 nylon skin sutures. The surgical site was dressed with Adaptic, 4x4 gauze and Kerlix. POSTOPERATIVE CONDITION: The patient tolerated the anesthesia and procedure well and was escorted to the recovery room with vital signs stable and neurovascular status intact to the right foot. The patient is to remain partial weightbearing to the right lower extremity as tolerated using a surgical shoe with crutches. The patient is to return to floors and podiatry will continue to follow the patient. Upon discharge, the patient will follow up with Dr. Smith in the office. Rut Madrid DPM Caroline Smith DPM [facility]
--- NOTE | 2017-09-14 09:23 | PN ---
DATE: SUBJECTIVE: The patient has no complaints of any chest pain, no shortness of breath, no headaches. PHYSICAL EXAMINATION: VITAL SIGNS: Temperature is 97.6, pulse of 94, blood pressure of 140/70, and respirations are 18. GENERAL: The patient is lying in bed, flat, comfortable. HEENT: No oral lesion. Anicteric sclerae. Moist mucosa. NECK: No JVD, adenopathy, or thyromegaly. CARDIOVASCULAR: S1 and S2, regular. No murmurs, rubs, or gallops. LUNGS: Clear to auscultation bilaterally. No wheeze, rales, or rhonchi. ABDOMEN: Bowel sounds are positive, soft, nontender and nondistended. EXTREMITIES: No cyanosis, clubbing or edema. On the right toe, there is a dry gangrene. ASSESSMENT: 1. Right toe dry gangrene. 2. Right first toe osteomyelitis. 3. Delirium. 4. Diabetes type 2. 5. Chronic anemia. 6. End-stage renal disease on hemodialysis. 7. Secondary hyperparathyroidism. 8. Right anterior tibial artery angioplasty with stent. 9. Bilateral tibial occlusive disease PLAN: The patient is currently comfortable. He had intervention done yesterday to evaluate his peripheral arterial disease. The patient is being followed by Podiatry and will most likely need surgery. I did review the notes of Dr. Smith. The patent did have successful proximal and distal right anterior tibial artery angioplasty and stent placed. The patient is on aspirin. He is going to continue with oxycodone for his pain as needed. The patient is on Tylenol. He is on Xanax for his agitation. The patient is on renal diet. He does have excessive confusion. I will get Cardiology to follow the patient as well. The patient does have risk for complications with the procedure given that he has dry gangrene with osteomyelitis that is unlikely to improve and will potentially gets worse if it is not addressed. He has already failed outpatient treatment. Maurice Agarwal MD [facility]
[2017-09-14] MEDS: Oxycodone/Acetaminophen 5/325 mg Tab PO PRN ×2 (10:19→17:02)
[2017-09-14] MEDS: ceFAZolin 1 gm in NS 1 GM/100 ML BAG IVPB SCH (18:39)
[2017-09-14 23:03] VITALS: O2SAT 100
[2017-09-15] MEDS: Albuterol-Ipratrop 3 mg / 0.5 (3 ml) UD IH SCH ×3 (01:58→13:04)
--- NOTE | 2017-09-15 02:10 | CON ---
DATE: 09/14/2017 CONSULT SERVICE: Cardiology. CONSULTING PHYSICIAN: Dr. Katharina Tejeda. REASON FOR CONSULTATION: Preop evaluation for possible amputation for gangrene of the foot. BRIEF CLINICAL HISTORY: This is a 67-year-old male with past medical history significant for coronary artery disease; end-stage renal disease, on dialysis; peripheral arterial disease; history of PTCA to right SFA and left SFA, atherectomy with a drug-coated balloon on 08/04/2017 and 07/13/2017, who came in with gangrene of the foot. Denies any chest pain, shortness of breath or any palpitation. PAST MEDICAL HISTORY: Significant for coronary artery disease, status post PTCA of LAD with a drug-eluting on 08/20/2014 and staged angioplasty of circumflex OM on 08/22/2014; last catheterization on 03/26/2017, abnormal stress test, cardiac catheterization revealed patent stent to left anterior descending, left circumflex patent, nondominant RCA, diffusely diseased noted from previous catheterization. PREVIOUS CARDIAC WORKUP: As follows, the patient MUGA scan done on 09/01/2015 that showed ejection fraction of 57%, significantly improved cardiac function. Repeat echo on 10/28/2016 shows ejection fraction prior to that 35%, four-chamber dilatation. Last stress test on 11/24/2016 showed abnormal nonreversible ischemia, no perfusion defect. Last catheterization on 03/26/2015 medical treatment recommended to all the patent stent site. The patient PTCA with drug-coated balloon of right SFA done on 07/13/2017 and left SFA on 08/05/2017 was done. CURRENT MEDICATIONS: The patient is taking , Flomax, Ranexa, Prozac, carvedilol, Coreg, aspirin, admitted with painful left foot and gangrene. PHYSICAL EXAMINATION: VITAL SIGNS: Temperature afebrile, heart rate 90, blood pressure 113/68. HEENT: PERRLA. Intact. NECK: Supple. No carotid bruits or thyromegaly. LUNGS: Clear to auscultation bilaterally. HEART: S1 and S2 regular. ABDOMEN: Soft. EXTREMITIES: Clubbing and cyanosis negative. LABORATORY DATA: Blood workup as follows, WBC 5.8. hemoglobin 10, hematocrit 30.9, platelet count 99. Chemistries show sodium 135, potassium 3.9, chloride 96, bicarbonate 25, anion gap of 9, BUN 65, creatinine of 8.9. EKG on 09/10/2017 shows normal sinus, possible left anterior hemiblock, cannot rule out anterior ND. IMPRESSION: Gangrene of the foot, diabetes, hypertension, hyperlipidemia, end-stage renal disease, status post percutaneous transluminal coronary angioplasty of right superficial femoral artery and left superficial femoral artery in July and June, history of cardiac catheterization, percutaneous transluminal coronary angioplasty of multiple stents on last catheterization, patent stent, last stent in circumflex on 08/22/2016, last catheterization on 03/26/2017 patent stent, last stress test on 11/24/2016, no reversible ischemia, last MUGA scan shows ejection fraction of 56% on 09/01/2015, last stress test on 11/24/2016. The patient yesterday went for peripheral angiogram and abdominal aortogram, bilateral lower extremity runoff with selective views, proximal distal anterior tibial angioplasty with stent placement on the right foot and finding was successful proximal distal right anterior tibial artery angioplasty with stent was done, severe bilateral tibial and pedal disease. RECOMMENDATION: Continue aggressive medical treatment. Continue dialysis. Continue Coreg, aspirin and put Plavix because of angioplasty recent. Should this treatment fail, possibly very limited option for the patient to have amputation. We will follow up closely. Continue interim aspirin, Plavix, beta-zeb, isosorbide nitrate, we will follow with you. Thank you Dr. Agarwal for providing us the opportunity in taking care of the patient, Bette, discussed with the family and discussed with the patient. We will put low-dose beta-zeb as blood pressure is tolerated. We will follow with you. We will get the lipid profile, TSH, hemoglobin A1c tomorrow. Thank you Dr. Agarwal for providing us the opportunity in taking care of the patient, Jf Aoms. Katharina Tejeda MD
--- NOTE | 2017-09-15 02:53 | PN ---
DATE: 09/14/2017 SUBJECTIVE: Patient is in bed, in no acute distress. PHYSICAL EXAMINATION: VITAL SIGNS: Temperature is 97, blood pressure is 120/70, respiratory rate of 16. HEENT: Unremarkable. NECK: Supple. LUNGS: Have decreased breath sounds. HEART: Normal S1 and S2. ABDOMEN: Soft. LABORATORY EXAMINATION: Reveals the patient's labs are noted and white count of 5.8. Chemistries noted. Microbiology reveals the blood cultures are negative. ASSESSMENT AND PLAN: A 67-year-old male who is chronically ill and much older than his stated age and cachectic with a body mass index of 18, chronic renal failure on hemodialysis, hypertension, diabetes, hyperlipidemia, anemia, left shunt, presented with; 1. Right big toe dry gangrene. Patient for a possible amputation today, currently off of antibiotics. In the OR, perioperative antibiotics as per Surgery. We will follow closely with you. Jose Miguel Mane MD
[2017-09-15] MEDS: Oxycodone/Acetaminophen 5/325 mg Tab PO PRN ×3 (06:25→19:18)
[2017-09-15 06:50] VITALS: PULSE 90; RESP 16; TEMP 97.6
[2017-09-15 07:06] LABS: HEMOGLOBIN 8.3 g/dL (14.0-18.0); MEAN CORPUSCULAR HEMOGLOBIN 30.2 pg (25.0-35.0); MEAN PLATELET VOLUME 12.1 fl (7.0-11.0); RBC 2.75 [, 10^6/uL] (3.5-6.1); RED CELL DISTRIBUTION WIDTH 14.8 % (11.5-14.5); WHITE BLOOD COUNT 8.5 [, 10^3/ul] (4.5-11.0)
[2017-09-15 07:14] LABS: MEAN CELL VOLUME 97.5 fl (80.0-105.0)
[2017-09-15 07:39] LABS: ALB/GLOB RATIO 1.1 (1.1-1.8); CALCIUM 9.1 mg/dL (8.4-10.5); MAGNESIUM 2.4 mg/dL (1.7-2.2)
[2017-09-15] MEDS ORDERED: Darbepoetin Alfa 100 mcg/ml Inj IVP ONE (08:03)
[2017-09-15] MEDS ORDERED: Doxercalciferol 4 mcg/2 ml Inj IVP ONE (08:32)
--- NOTE | 2017-09-15 12:21 | CP.PCM.PN ---
<Rut Madrid - Last Filed: 09/15/17 12:21> Subjective - Date & Time of Evaluation Date of Evaluation: 09/15/17 Time of Evaluation: 12:21 - Subjective Subjective: 67 y/o male seen at bedside this morning with attending Dr. Vargas 1 day s/p right partial hallux amputation. Pt's is bedside at time of visit. Pt admits to having the same throbbing pain in his right leg and foot which comes and goes. Admits to mild pain at the surgical site. States his pain meds are helping to control, and he has been receiving his antibiotics. Admits to tolerating PO diet without difficulty. Denies F/C/N/V/CP/SOB at this time. Objective - Vital Signs/Intake and Output Vital Signs (last 24 hours): Temp Pulse Resp BP Pulse Ox 97.6 F 90 16 96/61 L 100 09/15/17 07:43 09/15/17 07:43 09/15/17 07:43 09/15/17 07:43 09/15/17 07:43 Intake and Output: 09/15/17 09/15/17 06:59 18:59 Intake Total 240 Balance 240 - Medications Medications: Current Medications Acetaminophen (Tylenol 325mg Tab) 650 mg PO Q4H PRN PRN Reason: Pain, Mild (1-3) Albuterol/Ipratropium (Duoneb 3 Mg/0.5 Mg (3 Ml) Ud) 3 ml IH [id number] [facility] Last Admin: 09/15/17 07:33 Dose: Not Given Alprazolam (Xanax) 0.5 mg PO HS [facility] PRN Reason: Protocol Last Admin: 09/13/17 21:49 Dose: 0.5 mg Alprazolam (Xanax) 0.5 mg PO Q6H PRN; Protocol PRN Reason: Agitation Aspirin (Aspirin Chewable) 81 mg PO DAILY [facility] Last Admin: 09/15/17 09:10 Dose: Not Given Carvedilol (Coreg) 3.125 mg PO BID [facility] Last Admin: 09/15/17 09:10 Dose: Not Given Clopidogrel Bisulfate (Plavix) 75 mg PO DAILY [facility] Last Admin: 09/15/17 09:11 Dose: Not Given Cefazolin Sodium (Ancef 1gm In Ns) 1 gm in 100 mls @ 100 mls/hr IVPB 1900 [facility] PRN Reason: Protocol Last Admin: 09/14/17 18:39 Dose: 100 mls/hr Isosorbide Mononitrate (Imdur) 60 mg PO DAILY [facility] Last Admin: 09/15/17 09:10 Dose: Not Given Ondansetron HCl (Zofran Inj) 4 mg IVP ONCE PRN PRN Reason: Nausea/Vomiting Oxycodone/Acetaminophen (Percocet 5/325 Mg Tab) 1 tab PO Q4H PRN PRN Reason: Pain, moderate (4-7) Stop: 09/17/17 08:38 Last Admin: 09/15/17 11:13 Dose: 1 tab Oxycodone/Acetaminophen (Percocet 5/325 Mg Tab) 2 tab PO Q4H PRN PRN Reason: Pain, severe (8-10) Stop: 09/17/17 08:38 Last Admin: 09/15/17 06:25 Dose: 2 tab - Labs Labs: 09/15/17 06:30 09/15/17 06:30 PT 13.7 SECONDS (9.4-12.5) H 09/10/17 11:50 INR 1.19 (0.93-1.08) H 09/10/17 11:50 APTT 34.2 Seconds (25.1-36.5) 09/10/17 11:50 - Constitutional Appears: Well, Non-toxic, No Acute Distress - Extremities Exam Additional comments: Vasc: Right DP palpable 2/4, PT nonpalpable. Left DP weakly palpable, PT pulseunpalpable. Temperature gradient is warm to cool proximal to distal. CFT delayed but present to digits, non pitting edema noted to the right forefoot Ortho: moderate pain with palpation to entire right foot, worst with palpation of right hallux amputation site Neuro: epicritic and protective sensation grossly diminished B/L Derm: Surgical incision site noted to right hallux with all sutures intact. No dehiscence is noted at this time. Skin edges appear well coapted. Small area of necrosis is noted to central aspect of surgical incision site. No drainage, malodor, purulence, or fluctuance is noted to hallux amp site. No other clinical signs of infection appreciated. Otherwise, no open lesions, wounds, maceration, xerosis, abnormal pigmentation or abnormal growths noted B/L - Neurological Exam Neurological Exam: Alert, Awake, Oriented x3 - Psychiatric Exam Psychiatric exam: Normal Affect, Normal Mood Assessment and Plan - Assessment and Plan (Free Text) Assessment: 67 y/o male 1 day s/p right partial hallux amputation secondary to ischemia with peripheral vascular disease Plan: Patient seen and evaluated at bedside with attending Dr. Vargas Physical therapy consult placed, recommend electrical stimulation to help with healing OR wound cultures taken 09/14 pending Continue pain management with Percocet and Tylenol Ancef 1g IV q12 started as empiric tx ID on consult, appreciate recommendations Surgical site cleansed with sterile saline Dressed R foot hallux amputation site with betadine, Adaptic, DSD Pt is to be PWB to R heel with use of forefoot offloading shoe Recommend discharge to TCU for post-operative rehabilitation Podiatry will continue to follow patient postoperatively while patient is in house Patient to f/u in wound care center with Dr. Smith/Alicia after discharge <Dylon Vargas - Last Filed: 09/15/17 18:01> Objective - Vital Signs/Intake and Output Vital Signs (last 24 hours): Temp Pulse Resp BP Pulse Ox 97.6 F 90 16 96/61 L 100 09/15/17 07:43 09/15/17 07:43 09/15/17 07:43 09/15/17 07:43 09/15/17 07:43 Intake and Output: 09/15/17 09/15/17 06:59 18:59 Intake Total 240 0 Balance 240 0 - Medications Medications: Current Medications Acetaminophen (Tylenol 325mg Tab) 650 mg PO Q4H PRN PRN Reason: Pain, Mild (1-3) Albuterol/Ipratropium (Duoneb 3 Mg/0.5 Mg (3 Ml) Ud) 3 ml IH [id number] [facility] Last Admin: 09/15/17 13:04 Dose: 3 ml Alprazolam (Xanax) 0.5 mg PO HS [facility] PRN Reason: Protocol Last Admin: 09/13/17 21:49 Dose: 0.5 mg Alprazolam (Xanax) 0.5 mg PO Q6H PRN; Protocol PRN Reason: Agitation Aspirin (Aspirin Chewable) 81 mg PO DAILY [facility] Last Admin: 09/15/17 09:10 Dose: Not Given Carvedilol (Coreg) 3.125 mg PO BID [facility] Last Admin: 09/15/17 09:10 Dose: Not Given Clopidogrel Bisulfate (Plavix) 75 mg PO DAILY [facility] Last Admin: 09/15/17 09:11 Dose: Not Given Cefazolin Sodium (Ancef 1gm In Ns) 1 gm in 100 mls @ 100 mls/hr IVPB 1900 [facility] PRN Reason: Protocol Last Admin: 09/14/17 18:39 Dose: 100 mls/hr Isosorbide Mononitrate (Imdur) 60 mg PO DAILY [facility] Last Admin: 09/15/17 09:10 Dose: Not Given Ondansetron HCl (Zofran Inj) 4 mg IVP ONCE PRN PRN Reason: Nausea/Vomiting Oxycodone/Acetaminophen (Percocet 5/325 Mg Tab) 1 tab PO Q4H PRN PRN Reason: Pain, moderate (4-7) Stop: 09/17/17 08:38 Oxycodone/Acetaminophen (Percocet 5/325 Mg Tab) 2 tab PO Q4H PRN PRN Reason: Pain, severe (8-10) Stop: 09/17/17 08:38 Last Admin: 09/15/17 11:13 Dose: 2 tab - Labs Labs: 09/15/17 06:30 09/15/17 06:30 PT 13.7 SECONDS (9.4-12.5) H 09/10/17 11:50 INR 1.19 (0.93-1.08) H 09/10/17 11:50 APTT 34.2 Seconds (25.1-36.5) 09/10/17 11:50 Attending/Attestation - Attestation I have personally seen and examined this patient.: Yes I have fully participated in the care of the patient.: Yes I have reviewed all pertinent clinical information, including history, physical exam and plan: Yes
--- NOTE | 2017-09-15 15:37 | PN ---
DATE: 09/15/2017 LOCATION: The patient is in room 563, bed 1. REASON FOR CONSULTATION AND FOLLOWUP: Coronary artery disease, peripheral vascular disease, gangrene of the large toe of the right foot, status post amputation, large toe of the right foot. SUBJECTIVE: The patient is having dialysis, lying flat in bed, without chest pain, shortness of breath or palpitations. He complains of pain at the surgical site where he had amputation of the right foot, large toe. PHYSICAL EXAMINATION: VITAL SIGNS: The patient's blood pressure is 96/61, respirations are 16, pulse is 90, and temperature is 97.6. HEENT: Head is normocephalic. Eyes, pupils normal. Conjunctivae are slightly pale. NECK: JVP low. Carotids equal. THORAX: AP diameter normal. LUNGS: Clear. CARDIOVASCULAR: S1 and S2. ABDOMEN: Soft. No tenderness. No organomegaly. EXTREMITIES: The patient has a dressing on the right foot where he has amputation of the large toe, otherwise, no clubbing, no cyanosis. LABORATORY DATA: Shows WBC 8.5, hemoglobin 8.3, hematocrit 26.8, and platelets 118. Sodium 138, potassium 3.9, creatinine 7.5, BUN 51, phosphorus 7.6, random sugar 148, and magnesium 2.4. AST and ALT normal. Total protein and albumin normal. TSH is 0.48. Previous cardiac workup, the patient had MUGA scan on , which showed ejection fraction of 57%. Echo on 10/28/2016 showed ejection fraction prior to that 35%,four-chamber dilatation, last stress test 11/24/2016 showed abnormal non-reversible ischemia. Last catheterization 03/26/2015, medical treatment recommended to were open. The patient had PTCA with drug coated balloon of right SFA on 07/13/2017 and left SFA on 08/05/2017. The patient had PTCA of LAD with drug-eluting stent on 08/20/2014 and on circumflex OM on 08/22/2014. DIAGNOSES: Gangrene of the large toe of the right foot, status post surgery, amputation of right large toe, coronary artery disease, history of angioplasty and stent insertion, peripheral vascular disease, history of drug-coated balloon dilatation both right and left superficial femoral artery, and renal failure, on dialysis. The patient had stent placement on the proximal distal anterior tibial angioplasty with stent insertion on the right foot and proximal distal right anterior tibial artery had also angioplasty with stent insertion, severe bilateral tibial and pedal disease. PLAN: The patient had amputation of large toe of the right foot due to gangrene. The patient is on aspirin 81 daily, carvedilol 3.125 b.i.d., isosorbide mononitrate 60 daily, Plavix 75 daily, cefazolin 1 g in 100 mL of normal saline IV. The patient had dialysis today. We will continue to follow closely with you. Clinically, cardiac status is stable. Katharina Mendez MD
[2017-09-15] MEDS: ceFAZolin 1 gm in NS 1 GM/100 ML BAG IVPB SCH (18:05)
[2017-09-15 18:12] VITALS: BP 98/51
--- NOTE | 2017-09-15 18:31 | CP.PCM.PN ---
Subjective - Date & Time of Evaluation Date of Evaluation: 09/15/17 Time of Evaluation: 12:20 - Subjective Subjective: Comfortable, no fevers, not in distress. Objective - Vital Signs/Intake and Output Vital Signs (last 24 hours): Temp Pulse Resp BP Pulse Ox 97.6 F 90 16 98/51 L 100 09/15/17 07:43 09/15/17 07:43 09/15/17 07:43 09/15/17 18:05 09/15/17 07:43 Intake and Output: 09/15/17 09/15/17 06:59 18:59 Intake Total 240 0 Balance 240 0 - Medications Medications: Current Medications Acetaminophen (Tylenol 325mg Tab) 650 mg PO Q4H PRN PRN Reason: Pain, Mild (1-3) Albuterol/Ipratropium (Duoneb 3 Mg/0.5 Mg (3 Ml) Ud) 3 ml IH [id number] [facility] Last Admin: 09/15/17 13:04 Dose: 3 ml Alprazolam (Xanax) 0.5 mg PO HS [facility] PRN Reason: Protocol Last Admin: 09/13/17 21:49 Dose: 0.5 mg Alprazolam (Xanax) 0.5 mg PO Q6H PRN; Protocol PRN Reason: Agitation Aspirin (Aspirin Chewable) 81 mg PO DAILY [facility] Last Admin: 09/15/17 09:10 Dose: Not Given Carvedilol (Coreg) 3.125 mg PO BID [facility] Last Admin: 09/15/17 18:05 Dose: Not Given Clopidogrel Bisulfate (Plavix) 75 mg PO DAILY [facility] Last Admin: 09/15/17 09:11 Dose: Not Given Cefazolin Sodium (Ancef 1gm In Ns) 1 gm in 100 mls @ 100 mls/hr IVPB 1900 [facility] PRN Reason: Protocol Last Admin: 09/15/17 18:05 Dose: 100 mls/hr Isosorbide Mononitrate (Imdur) 60 mg PO DAILY [facility] Last Admin: 09/15/17 09:10 Dose: Not Given Ondansetron HCl (Zofran Inj) 4 mg IVP ONCE PRN PRN Reason: Nausea/Vomiting Oxycodone/Acetaminophen (Percocet 5/325 Mg Tab) 1 tab PO Q4H PRN PRN Reason: Pain, moderate (4-7) Stop: 09/17/17 08:38 Oxycodone/Acetaminophen (Percocet 5/325 Mg Tab) 2 tab PO Q4H PRN PRN Reason: Pain, severe (8-10) Stop: 09/17/17 08:38 Last Admin: 09/15/17 11:13 Dose: 2 tab - Labs Labs: 09/15/17 06:30 09/15/17 06:30 PT 13.7 SECONDS (9.4-12.5) H 09/10/17 11:50 INR 1.19 (0.93-1.08) H 09/10/17 11:50 APTT 34.2 Seconds (25.1-36.5) 09/10/17 11:50 - Constitutional Appears: Non-toxic - Head Exam Head Exam: NORMAL INSPECTION - ENT Exam ENT Exam: Mucous Membranes Moist - Respiratory Exam Respiratory Exam: Decreased Breath Sounds - Cardiovascular Exam Cardiovascular Exam: +S1, +S2 - GI/Abdominal Exam GI & Abdominal Exam: Soft. absent: Tenderness Assessment and Plan - Assessment and Plan (Free Text) Plan: Assessment right hallux distal phalanx osteomyelitis and gangrene S/P amputation POD #1 ESRD on HD with left arm AV shunt DM HTN dyslipidemia Plan given surgical prophylactic antibiotics - will monitor off antibiotics and follow up OR cx and pathology
--- NOTE | 2017-09-16 09:51 | PN ---
DATE: SUBJECTIVE: A 67-year-old male seen at bedside for continued evaluation and management of a partial right hallux amputation performed approximately 2 days ago. The patient is stating that he is having some right leg and foot pain, which worsens at night. He has been afebrile and does not complain of chills, nausea, vomiting, shortness of breath. He was told to ambulate as tolerated, which will increase his blood flow. However, he states that he finds walking difficult at this time. He was encouraged to try to do his best with physical therapy and he agreed. The patient's vital signs revealed temperature of 97.5, pulse rate of 48. Most recent laboratory findings reveal white count of 8.5, hemoglobin of 3.3, hematocrit of 26.8, platelet count of 118. OR cultures taken of his wound are still pending. OBJECTIVE: Nonpalpable pedal pulses in the right lower extremity. Weakly palpable pedal pulses in the left lower extremity. The incision site at the amputated right hallux presents with all sutures intact. There is no evidence of dehiscence. The wound edges are all well coapted. There is no drainage. However, there is a small area of necrosis located at the center of the incision site. There are noted to be ischemic changes surrounding the incision site with discoloration located on the medial aspect of the forefoot. There is no drainage or purulence noted. There are no signs of localized infection noted. ASSESSMENT: A 67-year-old male 2 day status post right partial hallux amputation secondary to severe ischemia with peripheral vascular disease. PLAN: The patient's wound was evaluated AND cleansed with normal sterile saline and application of Betadine solution and sterile Adaptic with a dry sterile dressing was applied. The patient was told that physical therapy as tolerated will aid in his healing and we will continue with the electrical stimulation by physical therapy in an attempt to accelerate his healing. We are still waiting OR cultures. We will continue with Percocet and Tylenol for pain. Will continue with antibiotics as per infectious disease. I spoke with Jf on the importance of physical therapy as tolerated as his wound area appears ischemic and any effort to increase his lower extremity perfusion would help greatly. The patient states he understands and will try his best. He will ambulate with the postoperative shoe. Dylon Vargas DPM
--- NOTE | 2017-09-18 08:35 | DS ---
HISTORY OF PRESENT ILLNESS: This is a 67-year-old male who had come in to the hospital, was found to have dry gangrene on the right first toe. The patient had failed outpatient treatment with IV antibiotics for his osteomyelitis in the right first toe. The patient had gone to the OR yesterday with Dr. Smith, had a partial toe amputation. The patient is currently comfortable. He also has intervention by Dr. Blane Gonzalez of Interventional Radiology and had a stent placed in his right anterior tibial artery. The patient does have significant peripheral arterial disease. He does not wish to go to subacute rehab, which has been recommended for him. He had to go to Transitional Care Unit so that Dr. Smith continued to monitor his foot postop. The patient has no complaints of any chest pain, shortness of breath, headaches, or dizziness. PHYSICAL EXAMINATION: VITAL SIGNS: Temperature is 97.6, pulse of 90, blood pressure 115/67, respirations 20, and O2 saturation is 98%. GENERAL: The patient lying in bed, uncomfortable, and in no acute distress. HEENT: Atraumatic and normocephalic. Anicteric sclerae. Moist mucosa. Vance conjunctivae. No oral lesions. NECK: No JVD, anterior and posterior adenopathy, thyromegaly, or bruits. CARDIOVASCULAR: S1 and S2 regular. No murmur, rubs, or gallop. LUNGS: Clear to auscultation bilaterally. No wheezes, rales, or rhonchi. ABDOMEN: Bowel sounds are positive. Soft, nontender and nondistended. No hepatosplenomegaly. No rebound and no guarding EXTREMITIES: No cyanosis, clubbing, or edema. NEUROLOGIC: No facial asymmetry. Tongue is midline. No uvula deviation. Power is 5/5 upper extremity and lower extremity. Sensation intact in upper extremity and lower extremity. PSYCHIATRIC: He is awake, alert and oriented x3. No anxiety or depression. He has normal affect. GENITOURINARY: No CVA tenderness. VASCULAR: 2+ pulses in the carotid pulses and pedal pulses. SKIN: No erythema or nodules. SPINE: Shows normal curvature. ASSESSMENT: 1. Right toe dry gangrene status post amputation, postoperative day number one. 2. Right first toe osteomyelitis. 3. Delirium. 4. Diabetes type 2. 5. Chronic anemia. 6. End-stage renal disease on hemodialysis. 7. Secondary hyperparathyroidism. 8. Right anterior tibial artery angioplasty with stent. 9. Bilateral vertebral artery occlusive disease. PLAN: The patient is currently on aspirin. He is on carvedilol as well. The patient is going to continue with Plavix. He is receiving Xanax for his anxiety. The patient is on renal diet. He is going to continue with dialysis. He is being followed by Cardiology as well, I appreciate their input. He is currently going to Transitional Care Unit when the bed becomes available. Maurice Agarwal MD
== END 2017-09-15 19:38 | DRG 252 ==
LOC: ED 11:38 → ERH 14:20 → 5RNO 16:43 → 2RSO 09-13 13:55 → 5RNO 09-13 19:49
PROVIDERS: ADMIT Internal Medicine Nephrology; ATTEND Internal Medicine Nephrology
PROC: 3E0F7GC Introduction of Other Therapeutic Substance into Respiratory Tract, Via Natural or Artificial Opening (ICD-10-PCS; 2017-09-10)
PROC: 047P35Z Dilation of Right Anterior Tibial Artery with Two Drug-eluting Intraluminal Devices, Percutaneous Approach (ICD-10-PCS; principal; 2017-09-13)
PROC: B41DYZZ Fluoroscopy of Aorta and Bilateral Lower Extremity Arteries using Other Contrast (ICD-10-PCS; 2017-09-13)
PROC: 0Y6P0Z3 Detachment at Right 1st Toe, Low, Open Approach (ICD-10-PCS; 2017-09-14)
DX: E11.52 Type 2 diabetes mellitus with diabetic peripheral angiopathy with gangrene (principal); I70.261 Atherosclerosis of native arteries of extremities with gangrene, right leg; M86.171 Other acute osteomyelitis, right ankle and foot; N18.6 End stage renal disease; E11.22 Type 2 diabetes mellitus with diabetic chronic kidney disease; E11.69 Type 2 diabetes mellitus with other specified complication; R64 Cachexia; I12.0 Hypertensive chronic kidney disease with stage 5 chronic kidney disease or end stage renal disease; L03.115 Cellulitis of right lower limb; Z68.1 Body mass index [BMI] 19.9 or less, adult; N25.81 Secondary hyperparathyroidism of renal origin; Z99.2 Dependence on renal dialysis; J44.9 Chronic obstructive pulmonary disease, unspecified; D64.9 Anemia, unspecified; E78.5 Hyperlipidemia, unspecified; I25.10 Atherosclerotic heart disease of native coronary artery without angina pectoris; N40.0 Benign prostatic hyperplasia without lower urinary tract symptoms; R41.0 Disorientation, unspecified; F41.9 Anxiety disorder, unspecified; Z95.5 Presence of coronary angioplasty implant and graft; Z79.82 Long term (current) use of aspirin; Z87.891 Personal history of nicotine dependence

== ENCOUNTER 2017-09-15 19:38 | Inpatient (IN) | payer OTHER ==
[2017-09-15] MEDS ORDERED: Oxycodone/Acetaminophen 5/325 mg Tab PO PRN (20:13)
[2017-09-16 02:01] VITALS: RESP 18
[2017-09-16] MEDS ORDERED: Influenza Vaccine 60 mcg/0.5 mL SYR (4YR UP) IM ONE (02:01)
[2017-09-16] MEDS ORDERED: Pneumococcal 23-Valent Vaccine IM ONE (02:01)
[2017-09-16] MEDS: Albuterol-Ipratrop 3 mg / 0.5 (3 ml) UD IH SCH ×4 (04:15→20:00)
[2017-09-16] MEDS: Oxycodone/Acetaminophen 5/325 mg Tab PO PRN ×3 (10:34→20:12)
--- NOTE | 2017-09-16 22:51 | CON ---
DATE: 09/15/2017 CARDIOLOGY CONSULT REASON FOR CONSULTATION: Coronary artery disease and peripheral vascular disease. HISTORY OF PRESENT ILLNESS: The patient is a 67-year-old male who has a history of significant coronary artery disease and end-stage renal disease on hemodialysis, history of peripheral vascular disease, underwent recently abdominal aortogram; and proximal and distal right anterior tibial artery angioplasty and stent placement, followed two days ago with right big toe amputation. Brief history of coronary artery disease according to Dr. Tejeda. It can be summarized that the patient underwent PTCA of the LAD with drug-eluting stent in 07/2014, end-stage angioplasty of the circumflex OM in 07/2014, last cardiac catheterization was in February of last year which revealed patent stent to the left anterior descending artery, left circumflex patent, nondominant right coronary artery, diffusely diseased noted from previous catheterization. The patient was transferred to TCU. He denied any chest pain or shortness of breath at this time. SOCIAL HISTORY: The patient denies smoking now. MEDICATIONS: Aspirin 81 mg once a day, Coreg 3.125 mg twice a day, albuterol inhaler q.6 hours, Imdur 60 mg once a day, Percocet one tablet q.4 hours p.r.n. for pain, Plavix 75 mg once a day, Xanax 0.5 mg q.6 hours, Zofran 4 mg intravenously p.r.n. for nausea and vomiting. REVIEW OF SYSTEMS: Noted for some chest pain. No dizziness. No fever or chills. The patient complains of pain at the surgical site at the right big toe amputation. PHYSICAL EXAMINATION: GENERAL: The patient is an elderly male who does not appear to be in acute distress. VITAL SIGNS: Blood pressure 114/88, heart rate 69, temperature 97.5, and respirations 18. HEENT: Pale conjunctivae. CHEST: Minimal basal rhonchi. HEART: S1 and S2 regular. ABDOMEN: Soft. EXTREMITIES: Dressings applied to the right foot. LABORATORY AND IMAGING DATA: EKG on 09/10/2017 revealed normal sinus rhythm, possible left atrial enlargement, cannot rule out inferior infarct of indeterminate age. Laboratory data showed hemoglobin and hematocrit of 8.3 and 26.8, white count and platelet count of 8.5 and 118,000. Yesterday's BUN and creatinine of 51 and 7.5, potassium was 3.8, glucose 148. ASSESSMENT: 1. Coronary artery disease with multiple coronary intervention in the past, most recent cardiac catheterization in February of last year revealed patent left anterior descending and circumflex stent with diffusely diseased right coronary artery. 2. Peripheral vascular disease, status post proximal and distal right anterior tibial artery angioplasty and stent placement. 3. Status post right big toe amputation. 4. End-stage renal disease, on hemodialysis. 5. Mild anemia. 6. Mild thrombocytopenia. RECOMMENDATIONS: Continue aspirin 81 mg once a day, Imdur 60 mg once a day, Plavix 75 mg once a day, and Zofran 4 mg intravenously p.r.n. Obtain 12-lead EKG. Reji Cantu MD
[2017-09-17] MEDS: Albuterol-Ipratrop 3 mg / 0.5 (3 ml) UD IH SCH ×4 (02:00→20:00)
[2017-09-17] MEDS: Oxycodone/Acetaminophen 5/325 mg Tab PO PRN ×4 (05:18→22:03)
--- NOTE | 2017-09-17 09:58 | CARD ---
APPROVED REPORT EKG Measurement Heart [id number] <Conclusion> Normal sinus rhythm Low voltage QRS PRWP Inferior infarct, age undetermined ST & T wave abnormality, consider lateral ischemia, increased c/w ECG 09/10/17
--- NOTE | 2017-09-17 10:31 | CON ---
DATE: 09/16/2017 CHIEF COMPLAINT: Foot infection from several days. HISTORY OF PRESENT ILLNESS: This is a 67-year-old male with past medical history significant for diabetes mellitus, chronic renal failure on hemodialysis, hypertension, hyperlipidemia, anemia, history of left arm shunt, the patient was admitted to the acute care and the patient had a dry gangrene on admission. The patient had surgery and now transferred to Transitional Care for further care. PAST MEDICAL HISTORY: Significant for diabetes mellitus, chronic renal failure on hemodialysis, hypertension, hyperlipidemia, and anemia. PAST SURGICAL HISTORY: Significant for left arm shunt placement. REVIEW OF SYSTEMS: Reveals no fevers and no chills. No nausea and no vomiting. No chest pain. PHYSICAL EXAMINATION VITAL SIGNS: Temperature is 97, blood pressure is 100/60, respiratory rate of 16, and the heart rate of 90. HEENT: Examination of HEENT is unremarkable. NECK: Supple. LUNGS: Decreased breath sounds. HEART: Normal S1 and S2. ABDOMEN: Soft. EXTREMITIES: Examination of foot is noted. LABORATORY DATA: Laboratory examination is reviewed. White count of 18, hemoglobin of 8.3, and platelets of 118. BUN of 51 and creatinine of 7.5. ASSESSMENT AND PLAN: This is a 67-year-old male with a right hallux distal osteomyelitis, gangrene status post amputation, post operative day number 2, and the patient with end-stage renal disease with a left arm arteriovenous shunt, hypertensive, diabetes. Awaiting for the OR cultures and pathology report. Review of orders reveals the patient not to be on any antibiotics at this point. We will follow with you and we will check on the pathology and the OR cultures, we will make further recommendations. Jose Miguel Mane MD
--- NOTE | 2017-09-17 11:45 | CP.PCM.PN ---
<Angelina Conklin - Last Filed: 09/17/17 11:41> Subjective - Date & Time of Evaluation Date of Evaluation: 09/17/17 Time of Evaluation: 11:41 - Subjective Subjective: Podiatry Progress note for Dr. Smith 67 year old male was seen at bedside 3 days s/p right hallux amputation. He admits to some pain to his right leg at the amputation site upon palpation. Patient was being seen by physical therapy at the time of visit. Patient denies any n/v/f/c/sob/cp. Objective - Vital Signs/Intake and Output Vital Signs (last 24 hours): Temp Pulse Resp BP Pulse Ox 97.6 F 91 H 18 96/63 L 100 09/17/17 11:26 09/17/17 11:26 09/17/17 11:26 09/17/17 11:26 09/17/17 11:26 Intake and Output: 09/17/17 09/17/17 06:59 18:59 Intake Total 380 Output Total 350 Balance 30 - Medications Medications: Current Medications Acetaminophen (Tylenol 325mg Tab) 650 mg PO Q4H PRN; Protocol PRN Reason: mild pain Albuterol/Ipratropium (Duoneb 3 Mg/0.5 Mg (3 Ml) Ud) 3 ml IH [id number] [facility] PRN Reason: Protocol Last Admin: 09/17/17 07:29 Dose: 3 ml Alprazolam (Xanax) 0.5 mg PO Q6H PRN; Protocol PRN Reason: Anxiety Alprazolam (Xanax) 0.5 mg PO HS PRN; Protocol PRN Reason: Anxiety Aspirin (Aspirin Chewable) 81 mg PO 0800 [facility] PRN Reason: Protocol Last Admin: 09/17/17 08:15 Dose: 81 mg Calcium Acetate (Phoslo) 667 mg PO WM [facility] Carvedilol (Coreg) 3.125 mg PO 0800,1800 [facility] PRN Reason: Protocol Last Admin: 09/17/17 08:15 Dose: 3.125 mg Clopidogrel Bisulfate (Plavix) 75 mg PO 0800 [facility] PRN Reason: Protocol Last Admin: 09/17/17 08:15 Dose: 75 mg Isosorbide Mononitrate (Imdur) 60 mg PO 0600 [facility] PRN Reason: Protocol Last Admin: 09/17/17 05:16 Dose: 60 mg Ondansetron HCl (Zofran Inj) 4 mg IVP ONCE PRN; Protocol PRN Reason: Nausea/Vomiting Oxycodone/Acetaminophen (Percocet 5/325 Mg Tab) 1 tab PO Q4H PRN; Protocol PRN Reason: moderate pain Stop: 09/18/17 20:14 Oxycodone/Acetaminophen (Percocet 5/325 Mg Tab) 2 tab PO Q4H PRN; Protocol PRN Reason: severe pain Stop: 09/18/17 20:21 Last Admin: 09/17/17 10:16 Dose: 2 tab - Constitutional Appears: Well, Non-toxic, No Acute Distress - Extremities Exam Additional comments: Lower extremity focused exam: Vasc: Right DP palpable 2/4, PT nonpalpable. Left DP weakly palpable, PT pulseunpalpable. Temperature gradient is warm to cool proximal to distal. CFT delayed but present to digits, non pitting edema noted to the right forefoot Ortho: Mild pain with palpation to entire right foot, worst with palpation of right hallux amputation site Neuro: epicritic and protective sensation grossly diminished B/L Derm: Surgical incision site noted to right hallux with all sutures intact. No dehiscence is noted at this time. Skin edges appear well coapted. Area of necrosis is noted to the surgical incision site. No drainage, malodor, purulence , or fluctuance is noted to hallux amp site. Ischemic changes are noted to the area surrounding the surgical site. No other clinical signs of infection appreciated. Otherwise, no open lesions, wounds, maceration, xerosis, abnormal pigmentation or abnormal growths noted B/L - Neurological Exam Neurological Exam: Alert, Awake, Oriented x3 - Psychiatric Exam Psychiatric exam: Normal Affect, Normal Mood Assessment and Plan - Assessment and Plan (Free Text) Assessment: 67 year old male 3 days s/p right partial hallux amputation secondary to ischemia and PVD Plan: patient examined and evaluated discussed in detail with attending, Dr. Smith chart, labs, vitals reviewed;WBC 8.5, afebrile Continue physical therapy electrical stimulation to help with healing OR wound cultures taken 09/14 pending Continue pain management with Percocet and Tylenol Continue IV abx per ID Surgical site cleansed with sterile saline Dressed R foot hallux amputation site with betadine, Adaptic, DSD Patient is to be PWB to R heel with use of forefoot offloading shoe Podiatry will continue to follow patient postoperatively while patient is in house Patient to f/u in wound care center with Dr. Smith/Alicia after discharge <Caroline Smith - Last Filed: 09/21/17 14:00> Objective - Vital Signs/Intake and Output Vital Signs (last 24 hours): Temp Pulse Resp BP Pulse Ox 98 F 78 18 104/48 L 96 09/21/17 10:00 09/21/17 10:00 09/21/17 10:00 09/21/17 10:00 09/21/17 10:00 Intake and Output: 09/21/17 09/21/17 06:59 18:59 Intake Total 260 Output Total 350 Balance -90 - Medications Medications: Current Medications Acetaminophen (Tylenol 325mg Tab) 650 mg PO Q4H PRN; Protocol PRN Reason: mild pain Alprazolam (Xanax) 0.5 mg PO Q6H PRN; Protocol PRN Reason: Anxiety Last Admin: 09/19/17 02:17 Dose: 0.5 mg Alprazolam (Xanax) 0.5 mg PO HS PRN; Protocol PRN Reason: Anxiety Aspirin (Aspirin Chewable) 81 mg PO 0800 [facility] PRN Reason: Protocol Last Admin: 09/21/17 08:22 Dose: 81 mg Calcium Acetate (Phoslo) 667 mg PO WM [facility] Last Admin: 09/21/17 12:37 Dose: 667 mg Carvedilol (Coreg) 3.125 mg PO 0800,1800 [facility] PRN Reason: Protocol Last Admin: 09/21/17 08:21 Dose: 3.125 mg Clopidogrel Bisulfate (Plavix) 75 mg PO 0800 [facility] PRN Reason: Protocol Last Admin: 09/21/17 08:22 Dose: 75 mg Piperacillin Sod/Tazobactam Sod (Zosyn 2.25 Gm In 0.9% 100 Ml) 2.25 gm in 100 mls @ 100 mls/hr IVPB Q6 [facility] PRN Reason: Protocol Stop: 09/26/17 00:01 Last Admin: 09/21/17 13:38 Dose: 100 mls/hr Isosorbide Mononitrate (Imdur) 60 mg PO 0600 [facility] PRN Reason: Protocol Last Admin: 09/21/17 05:53 Dose: 60 mg Ondansetron HCl (Zofran Inj) 4 mg IVP ONCE PRN; Protocol PRN Reason: Nausea/Vomiting Oxycodone/Acetaminophen (Percocet 5/325 Mg Tab) 1 tab PO Q4H PRN PRN Reason: Pain, moderate (4-7) Stop: 09/22/17 11:08 Last Admin: 09/21/17 10:16 Dose: 1 tab Oxycodone/Acetaminophen (Percocet 5/325 Mg Tab) 2 tab PO Q4H PRN PRN Reason: Pain, severe (8-10) Stop: 09/22/17 11:08 - Labs Labs: 09/20/17 15:00 09/20/17 15:00 Attending/Attestation - Attestation I have personally seen and examined this patient.: Yes I have fully participated in the care of the patient.: Yes I have reviewed all pertinent clinical information, including history, physical exam and plan: Yes
--- NOTE | 2017-09-17 19:34 | PN ---
DATE: FOLLOWUP NOTE SUBJECTIVE: The patient denies any chest pain or shortness of breath. PHYSICAL EXAMINATION: VITAL SIGNS: Blood pressure 96/63, heart rate 94, temperature 97.6, and respirations 18. HEENT: Normocephalic. CHEST: Clear. HEART: S1 and S2 regular. EXTREMITIES: Dressing of right foot after the right big toe amputation. ASSESSMENT: 1. Coronary artery disease with multiple coronary intervention in the past. 2. Peripheral vascular disease, status post recent balloon angioplasty to proximal and distal right anterior tibial artery with a stent placement. 3. Status post right big toe amputation. 4. End-stage renal disease, on hemodialysis. 5. Mild anemia. 6. Mild thrombocytopenia. RECOMMENDATIONS: Continue aspirin 81 mg once a day, Coreg 3.125 mg twice a day, Imdur 60 mg once a day, Plavix 75 mg once a day, and PhosLo 667 mg with each meal. Obtain EKG, BMP, and CBC in a.m. Reji Cantu MD
--- NOTE | 2017-09-18 00:14 | PN ---
DATE: 09/17/2017 SUBJECTIVE: The patient has no complaints of any chest pain. No shortness of breath. No headaches or dizziness. PHYSICAL EXAMINATION: VITAL SIGNS: Temperature is 97.2, pulse is 77, blood pressure is 95/60, and respirations are . GENERAL: The patient is lying in bed, flat, comfortable. HEENT: No oral lesion. Anicteric sclerae. Moist mucosa. NECK: No JVD, adenopathy, or thyromegaly. CARDIOVASCULAR: S1 and S2, regular. No murmurs, rubs, or gallops. LUNGS: Clear to auscultation bilaterally. No wheeze, rales, or rhonchi. ABDOMEN: Bowel sounds are positive, soft, nontender and nondistended. EXTREMITIES: No cyanosis, clubbing or edema. ASSESSMENT: 1. Right toe gangrene, status post amputation. 2. Right first toe osteomyelitis. 3. Diabetes type 2. 4. Chronic anemia. 5. End-stage renal disease, on hemodialysis. 6. Secondary hypoparathyroidism. 7. Right anterior tibial artery angioplasty with stent. 8. Peripheral arterial disease. PLAN: The patient is currently comfortable. He is getting physical therapy. I spoke with the physical therapist today. The patient is on aspirin, this will be continued. He is on carvedilol. The patient is going to be on aspirin daily. He is receiving oxycodone for pain. He is on Plavix as well. The patient is on PhosLo for his secondary hypoparathyroidism. He is on Xanax as needed. The patient is on a renal diet. Maurice Agarwal MD
--- NOTE | 2017-09-18 05:31 | PN ---
DATE: 09/17/2017 SUBJECTIVE: The patient is seen earlier this morning in room 303. No fevers and no chills. PHYSICAL EXAMINATION: VITAL SIGNS: Temperature is 98, blood pressure is 120/70, respirations 16. HEENT: Unremarkable. NECK: Supple. LUNGS: Decreased breath sounds. HEART: Normal S1 and S2. ABDOMEN: Soft and nontender. EXTREMITIES: Examination of the foot is noted. ASSESSMENT AND PLAN: The patient is a 67-year-old male with right hallux and distal osteomyelitis and gangrene, status post amputation, postoperative day #3 with end-stage renal disease, left arm AV shunt, hypertension, diabetes. Awaiting for the OR cultures and pathology report, and currently the patient is not on any antibiotics. Thus far, the blood cultures from 09/10 no anaerobes are isolated, waiting for final culture results and pathology. Jose Miguel Mane MD
[2017-09-18] MEDS: Oxycodone/Acetaminophen 5/325 mg Tab PO PRN ×3 (05:46→18:18)
[2017-09-18] MEDS: Albuterol-Ipratrop 3 mg / 0.5 (3 ml) UD IH SCH ×4 (07:21→20:13)
--- NOTE | 2017-09-18 09:11 | CP.PCM.PN ---
<[place] - Last Filed: 09/18/17 09:47> Subjective - Date & Time of Evaluation Date of Evaluation: 09/18/17 Time of Evaluation: 09:08 - Subjective Subjective: 67 y/o male seen at bedside with attending Dr. Smith 4 days s/p right hallux partial amputation. Pt denies any acute events overnight. Admits to same pain in the right foot and near the surgical site, stating it is about the same intensity as prior to surgery. Denies F/C/N/V/CP/SOB. States he has not been walking at all because he has not received his special forefoot offloading shoe. Objective - Vital Signs/Intake and Output Vital Signs (last 24 hours): Temp Pulse Resp BP Pulse Ox 97.2 F L 81 18 121/73 99 09/17/17 18:13 09/18/17 08:36 09/17/17 18:13 09/18/17 08:36 09/17/17 18:13 Intake and Output: 09/18/17 09/18/17 06:59 18:59 Intake Total 260 Balance 260 - Medications Medications: Current Medications Acetaminophen (Tylenol 325mg Tab) 650 mg PO Q4H PRN; Protocol PRN Reason: mild pain Albuterol/Ipratropium (Duoneb 3 Mg/0.5 Mg (3 Ml) Ud) 3 ml IH [id number] [facility] PRN Reason: Protocol Last Admin: 09/18/17 07:21 Dose: 3 ml Alprazolam (Xanax) 0.5 mg PO Q6H PRN; Protocol PRN Reason: Anxiety Alprazolam (Xanax) 0.5 mg PO HS PRN; Protocol PRN Reason: Anxiety Aspirin (Aspirin Chewable) 81 mg PO 0800 [facility] PRN Reason: Protocol Last Admin: 09/18/17 08:36 Dose: 81 mg Calcium Acetate (Phoslo) 667 mg PO WM [facility] Last Admin: 09/18/17 08:36 Dose: 667 mg Carvedilol (Coreg) 3.125 mg PO 0800,1800 [facility] PRN Reason: Protocol Last Admin: 09/18/17 08:36 Dose: 3.125 mg Clopidogrel Bisulfate (Plavix) 75 mg PO 0800 [facility] PRN Reason: Protocol Last Admin: 09/18/17 08:35 Dose: 75 mg Isosorbide Mononitrate (Imdur) 60 mg PO 0600 [facility] PRN Reason: Protocol Last Admin: 09/18/17 05:44 Dose: 60 mg Ondansetron HCl (Zofran Inj) 4 mg IVP ONCE PRN; Protocol PRN Reason: Nausea/Vomiting Oxycodone/Acetaminophen (Percocet 5/325 Mg Tab) 1 tab PO Q4H PRN; Protocol PRN Reason: moderate pain Stop: 09/18/17 20:14 Oxycodone/Acetaminophen (Percocet 5/325 Mg Tab) 2 tab PO Q4H PRN; Protocol PRN Reason: severe pain Stop: 09/18/17 20:21 Last Admin: 09/18/17 05:46 Dose: 2 tab - Constitutional Appears: Well, Non-toxic, No Acute Distress - Extremities Exam Additional comments: Lower extremity focused exam: Vasc: Right DP palpable 2/4, PT non-palpable. Left DP weakly palpable, PT pulse non-palpable. Temperature gradient is warm to cool proximal to distal. CFT delayed but present to digits, non pitting edema noted to the right forefoot Ortho: Mild pain with palpation to entire right foot, worst with palpation of right hallux amputation site Neuro: epicritic and protective sensation grossly diminished B/L Derm: Surgical incision site noted to right hallux with all sutures intact. No dehiscence is noted at this time. Skin edges appear well coapted. Ischemic changes are noted to the area surrounding the surgical site. No drainage, malodor, purulence, or fluctuance is noted to hallux amp site. No other clinical signs of infection appreciated. Otherwise, no open lesions, wounds, maceration, xerosis, abnormal pigmentation or abnormal growths noted B/L - Neurological Exam Neurological Exam: Alert, Awake, Oriented x3 - Psychiatric Exam Psychiatric exam: Normal Affect, Normal Mood Assessment and Plan - Assessment and Plan (Free Text) Assessment: 67 year old male 4 days s/p right partial hallux amputation secondary to ischemia and PVD Plan: Patient examined and evaluated at bedside with attending, Dr. Smith Labs and vitals reviewed; afebrile, NNL OR wound cultures taken 09/14 pending - anaerobes reveal no growth New physical therapy order placed, request daily application of electrical stimulation to help with healing Continue pain management with Percocet and Tylenol Continue IV abx per ID Surgical site cleansed with sterile saline Dressing applied to surgical site with betadine, Adaptic, DSD to R foot Patient is to be full WB with use of forefoot offloading shoe Podiatry will continue to follow Patient to f/u in wound care center with Dr. Smith/Alicia after discharge <Caroline Smith - Last Filed: 09/21/17 14:01> Objective - Vital Signs/Intake and Output Vital Signs (last 24 hours): Temp Pulse Resp BP Pulse Ox 98 F 78 18 104/48 L 96 09/21/17 10:00 09/21/17 10:00 09/21/17 10:00 09/21/17 10:00 09/21/17 10:00 Intake and Output: 09/21/17 09/21/17 06:59 18:59 Intake Total 260 Output Total 350 Balance -90 - Medications Medications: Current Medications Acetaminophen (Tylenol 325mg Tab) 650 mg PO Q4H PRN; Protocol PRN Reason: mild pain Alprazolam (Xanax) 0.5 mg PO Q6H PRN; Protocol PRN Reason: Anxiety Last Admin: 09/19/17 02:17 Dose: 0.5 mg Alprazolam (Xanax) 0.5 mg PO HS PRN; Protocol PRN Reason: Anxiety Aspirin (Aspirin Chewable) 81 mg PO 0800 [facility] PRN Reason: Protocol Last Admin: 09/21/17 08:22 Dose: 81 mg Calcium Acetate (Phoslo) 667 mg PO WM [facility] Last Admin: 09/21/17 12:37 Dose: 667 mg Carvedilol (Coreg) 3.125 mg PO 0800,1800 [facility] PRN Reason: Protocol Last Admin: 09/21/17 08:21 Dose: 3.125 mg Clopidogrel Bisulfate (Plavix) 75 mg PO 0800 [facility] PRN Reason: Protocol Last Admin: 09/21/17 08:22 Dose: 75 mg Piperacillin Sod/Tazobactam Sod (Zosyn 2.25 Gm In 0.9% 100 Ml) 2.25 gm in 100 mls @ 100 mls/hr IVPB Q6 [facility] PRN Reason: Protocol Stop: 09/26/17 00:01 Last Admin: 09/21/17 13:38 Dose: 100 mls/hr Isosorbide Mononitrate (Imdur) 60 mg PO 0600 [facility] PRN Reason: Protocol Last Admin: 09/21/17 05:53 Dose: 60 mg Ondansetron HCl (Zofran Inj) 4 mg IVP ONCE PRN; Protocol PRN Reason: Nausea/Vomiting Oxycodone/Acetaminophen (Percocet 5/325 Mg Tab) 1 tab PO Q4H PRN PRN Reason: Pain, moderate (4-7) Stop: 09/22/17 11:08 Last Admin: 09/21/17 10:16 Dose: 1 tab Oxycodone/Acetaminophen (Percocet 5/325 Mg Tab) 2 tab PO Q4H PRN PRN Reason: Pain, severe (8-10) Stop: 09/22/17 11:08 - Labs Labs: 09/20/17 15:00 09/20/17 15:00 Attending/Attestation - Attestation I have personally seen and examined this patient.: Yes I have fully participated in the care of the patient.: Yes I have reviewed all pertinent clinical information, including history, physical exam and plan: Yes
[2017-09-18 09:24] LABS: HEMOGLOBIN 9.6 g/dL (14.0-18.0); MEAN CELL VOLUME 95.2 fl (80.0-105.0); MEAN CORPUSCULAR HEMOGLOBIN 30.6 pg (25.0-35.0); MEAN CORPUSCULAR HGB CONC 32.1 g/dl (31.0-37.0); MEAN PLATELET VOLUME 11.2 fl (7.0-11.0); RBC 3.14 10^6/uL (3.5-6.1); RED CELL DISTRIBUTION WIDTH 14.7 % (11.5-14.5)
--- NOTE | 2017-09-18 09:24 | CARD ---
APPROVED REPORT EKG Measurement Heart [id number] <Conclusion> Normal sinus rhythm Low voltage QRS STTW changes c/w ischemia No change except the rate is slower
[2017-09-18 09:34] LABS: CALCIUM 9.8 mg/dL (8.4-10.5)
--- NOTE | 2017-09-18 13:16 | PN ---
DATE: 09/18/2017 LOCATION: The patient is in room 303, bed 1. REASON FOR CONSULTATION AND FOLLOWUP: Coronary artery disease, peripheral vascular disease, status post amputation of the large toe of the right foot. SUBJECTIVE: The patient is sitting in chair comfortably without chest pain, shortness of breath or palpitation. PHYSICAL EXAMINATION: VITAL SIGNS: Blood pressure 121/73, respirations 20, pulse 81. The patient is afebrile. HEENT: Normocephalic. Eyes; pupils normal. Conjunctivae slightly pale. NECK: JVP low, carotids equal. THORAX: AP diameter normal. LUNGS: Clear. CARDIOVASCULAR: S1 and S2. ABDOMEN: Soft. No tenderness. No organomegaly. Bowel sounds normal. EXTREMITIES: No clubbing. No cyanosis. LABORATORY DATA: WBC 9.0, hemoglobin 9.6, hematocrit 29.9, platelet 215. Sodium 134, potassium 4.6, BUN 85, creatinine 8.5, random glucose 170, calcium 9.8. DIAGNOSES: Peripheral vascular disease, status post amputation of the large toe of the right foot due to peripheral vascular disease. The patient recently had abdominal aortogram, proximal and distal right anterior tibial artery and left anterior tibial artery angioplasty with drug coated balloon. The patient has a history of coronary artery disease, had percutaneous transluminal coronary angioplasty of left anterior descending with drug-eluting stent in 07/2014 and circumflex obtuse marginal 1 in 07/2014. Last cardiac catheterization in 02/2017, which revealed patent stent to the left anterior descending and left circumflex. Nondominant right coronary artery diffusely diseased, which was noted from the previous catheterization. The patient's renal failure on dialysis, status post amputation right big toe, anemia, mild thrombocytopenia, deconditioning. PLAN: Continue physical therapy. Clinically, cardiac status stable. The patient has no anginal symptoms, and the patient will continue carvedilol 3.125 b.i.d., aspirin 81 daily, isosorbide mononitrate 60 mg daily, PhosLo 667 mg p.o. Monday and Wednesdays, Plavix 75 mg daily. We will follow with you. Katharina Mendez MD
[2017-09-18] MEDS ORDERED: Vancomycin 1gm in NS 250ml 1 GM/250 ML BAG IVPB STA (18:55)
--- NOTE | 2017-09-18 18:57 | CP.PCM.PN ---
Subjective - Date & Time of Evaluation Date of Evaluation: 09/18/17 Time of Evaluation: 12:10 - Subjective Subjective: Comfortable in bed, no fevers overnight, no pain in the foot. Objective - Vital Signs/Intake and Output Vital Signs (last 24 hours): Temp Pulse Resp BP Pulse Ox 97.8 F 72 18 98/76 L 99 09/18/17 10:00 09/18/17 18:14 09/18/17 10:00 09/18/17 18:14 09/17/17 18:13 Intake and Output: 09/18/17 09/18/17 06:59 18:59 Intake Total 260 Balance 260 - Medications Medications: Current Medications Acetaminophen (Tylenol 325mg Tab) 650 mg PO Q4H PRN; Protocol PRN Reason: mild pain Albuterol/Ipratropium (Duoneb 3 Mg/0.5 Mg (3 Ml) Ud) 3 ml IH [id number] [facility] PRN Reason: Protocol Last Admin: 09/18/17 13:40 Dose: 3 ml Alprazolam (Xanax) 0.5 mg PO Q6H PRN; Protocol PRN Reason: Anxiety Alprazolam (Xanax) 0.5 mg PO HS PRN; Protocol PRN Reason: Anxiety Aspirin (Aspirin Chewable) 81 mg PO 0800 [facility] PRN Reason: Protocol Last Admin: 09/18/17 08:36 Dose: 81 mg Calcium Acetate (Phoslo) 667 mg PO WM [facility] Last Admin: 09/18/17 18:15 Dose: 667 mg Carvedilol (Coreg) 3.125 mg PO 0800,1800 [facility] PRN Reason: Protocol Last Admin: 09/18/17 18:14 Dose: Not Given Clopidogrel Bisulfate (Plavix) 75 mg PO 0800 [facility] PRN Reason: Protocol Last Admin: 09/18/17 08:35 Dose: 75 mg Isosorbide Mononitrate (Imdur) 60 mg PO 0600 [facility] PRN Reason: Protocol Last Admin: 09/18/17 05:44 Dose: 60 mg Ondansetron HCl (Zofran Inj) 4 mg IVP ONCE PRN; Protocol PRN Reason: Nausea/Vomiting Oxycodone/Acetaminophen (Percocet 5/325 Mg Tab) 1 tab PO Q4H PRN; Protocol PRN Reason: moderate pain Stop: 09/18/17 20:14 Oxycodone/Acetaminophen (Percocet 5/325 Mg Tab) 2 tab PO Q4H PRN; Protocol PRN Reason: severe pain Stop: 09/18/17 20:21 Last Admin: 09/18/17 18:18 Dose: 2 tab - Labs Labs: 09/18/17 09:00 09/18/17 09:00 - Constitutional Appears: Non-toxic - Head Exam Head Exam: NORMAL INSPECTION - ENT Exam ENT Exam: Mucous Membranes Moist - Respiratory Exam Respiratory Exam: Decreased Breath Sounds - Cardiovascular Exam Cardiovascular Exam: +S1, +S2 - GI/Abdominal Exam GI & Abdominal Exam: Soft. absent: Tenderness - Extremities Exam Additional comments: right foot with dressings in place Assessment and Plan - Assessment and Plan (Free Text) Plan: Assessment right hallux distal phalanx osteomyelitis and gangrene S/P amputation POD #4; resection margins still show necrosis and osteomyelitis ESRD on HD with left arm AV shunt DM HTN dyslipidemia Plan will give a dose of IV Vanco and start Zosyn pending OR cx (which are negative so far) will monitor clinically
[2017-09-19] MEDS: Piperacillin/Tazobact 2.25gm 2.25 GM/100 ML BAG IVPB SCH ×4 (06:37→17:57)
[2017-09-19] MEDS ORDERED: Oxycodone/Acetaminophen 5/325 mg Tab PO PRN (11:07)
[2017-09-19] MEDS: Oxycodone/Acetaminophen 5/325 mg Tab PO PRN (11:19)
--- NOTE | 2017-09-19 11:40 | PN ---
DATE: 09/19/2017 SUBJECTIVE: The patient has no complaints of any chest pain. No shortness of breath or headache. PHYSICAL EXAMINATION: VITAL SIGNS: Temperature is 97.8, pulse is 72, blood pressure is 98/76, respirations 18. GENERAL: The patient is lying in bed, flat, comfortable. HEENT: No oral lesion. Anicteric sclerae. Moist mucosa. NECK: No JVD, adenopathy, or thyromegaly. CARDIOVASCULAR: S1 and S2, regular. No murmurs, rubs, or gallops. LUNGS: Clear to auscultation bilaterally. No wheeze, rales, or rhonchi. ABDOMEN: Bowel sounds are positive, soft, nontender and nondistended. EXTREMITIES: No cyanosis, clubbing, or edema. ASSESSMENT: 1. Right toe gangrene, status post amputation. 2. Right first toe osteomyelitis. 3. Diabetes type 2. 4. Chronic anemia. 5. End-stage renal disease, on hemodialysis. 6. Secondary hypoparathyroidism. 7. Right anterior tibial artery angioplasty with stent. 8. Peripheral arterial disease. PLAN: The patient is currently comfortable. He is on aspirin. The patient is on carvedilol. He is on nebulizer treatments; I will discontinue his nebulizer treatments at this point. The patient is on isosorbide for his angina. The patient is on PhosLo for his secondary hyperparathyroidism. He is on Plavix daily. The patient is receiving Tylenol as needed. He is on Xanax. The patient is on Zosyn for antibiotics. He is being followed by Dr. Smith, she is going to continue his dialysis. Maurice Agarwal MD
--- NOTE | 2017-09-19 12:42 | CP.PCM.PN ---
Subjective - Date & Time of Evaluation Date of Evaluation: 09/19/17 Time of Evaluation: 12:40 - Subjective Subjective: 67 y/o male seen at bedside with attending Dr. Vargas 5 days s/p right hallux partial amputation. Pt denies any acute events overnight. States that his pain in the right leg and foot has decreased and is manageable. Denies F/C/N/V/CP/ SOB. Admits to doing some walking with his forefoot offloading shoe with physical therapy yesterday. Objective - Vital Signs/Intake and Output Vital Signs (last 24 hours): Temp Pulse Resp BP Pulse Ox 97.8 F 90 18 121/74 99 09/18/17 10:00 09/19/17 08:43 09/18/17 10:00 09/19/17 08:43 09/17/17 18:13 Intake and Output: 09/19/17 09/19/17 06:59 18:59 Intake Total 260 Output Total 350 Balance -90 - Medications Medications: Current Medications Acetaminophen (Tylenol 325mg Tab) 650 mg PO Q4H PRN; Protocol PRN Reason: mild pain Alprazolam (Xanax) 0.5 mg PO Q6H PRN; Protocol PRN Reason: Anxiety Last Admin: 09/19/17 02:17 Dose: 0.5 mg Alprazolam (Xanax) 0.5 mg PO HS PRN; Protocol PRN Reason: Anxiety Aspirin (Aspirin Chewable) 81 mg PO 0800 [facility] PRN Reason: Protocol Last Admin: 09/19/17 08:43 Dose: 81 mg Calcium Acetate (Phoslo) 667 mg PO WM [facility] Last Admin: 09/19/17 11:20 Dose: 667 mg Carvedilol (Coreg) 3.125 mg PO 0800,1800 [facility] PRN Reason: Protocol Last Admin: 09/19/17 08:43 Dose: 3.125 mg Clopidogrel Bisulfate (Plavix) 75 mg PO 0800 [facility] PRN Reason: Protocol Last Admin: 09/19/17 08:45 Dose: 75 mg Piperacillin Sod/Tazobactam Sod (Zosyn 2.25 Gm In 0.9% 100 Ml) 2.25 gm in 100 mls @ 100 mls/hr IVPB Q6 [facility] PRN Reason: Protocol Stop: 01/30/18 00:01 Last Admin: 09/19/17 11:20 Dose: 100 mls/hr Isosorbide Mononitrate (Imdur) 60 mg PO 0600 [facility] PRN Reason: Protocol Last Admin: 09/19/17 08:42 Dose: 60 mg Ondansetron HCl (Zofran Inj) 4 mg IVP ONCE PRN; Protocol PRN Reason: Nausea/Vomiting Oxycodone/Acetaminophen (Percocet 5/325 Mg Tab) 1 tab PO Q4H PRN PRN Reason: Pain, moderate (4-7) Stop: 09/22/17 11:08 Last Admin: 09/19/17 11:19 Dose: 1 tab Oxycodone/Acetaminophen (Percocet 5/325 Mg Tab) 2 tab PO Q4H PRN PRN Reason: Pain, severe (8-10) Stop: 09/22/17 11:08 - Labs Labs: 09/18/17 09:00 09/18/17 09:00 - Constitutional Appears: Well, Non-toxic, No Acute Distress - Extremities Exam Additional comments: Lower extremity focused exam: Vasc: Right DP faintly palpable 1/4, PT non-palpable. Left DP weakly palpable, PT pulse non-palpable. Temperature gradient is warm to cold proximal to distal, R worse than L. CFT delayed but present to digits. No pedal edema noted at this time Ortho: Minimal pain with palpation of right hallux amputation site Neuro: Epicritic and protective sensation grossly diminished B/L Derm: Surgical incision site noted to right hallux with all sutures intact. Ischemic changes are noted to the area surrounding the surgical site with darkened tissue noted to entire periphery of incision site. No dehiscence is noted at this time. Skin edges appear well coapted. No drainage, malodor, purulence, or fluctuance is noted to hallux amp site. No other clinical signs of infection appreciated. Otherwise, no open lesions, wounds, maceration, xerosis, abnormal pigmentation or abnormal growths noted B/L - Neurological Exam Neurological Exam: Alert, Awake, Oriented x3 - Psychiatric Exam Psychiatric exam: Normal Affect, Normal Mood Assessment and Plan - Assessment and Plan (Free Text) Assessment: 67 year old male 5 days s/p right partial hallux amputation secondary to ischemia and PVD Plan: Patient examined and evaluated at bedside with attending, Dr. Vargas Labs and vitals reviewed; afebrile, WBC 9.0 OR wound cultures taken 09/14 - anaerobes reveal no growth Spoke with PT and encouraged daily electrical stimulation to help with healing as well as increased mobility Continue pain management with Percocet and Tylenol Continue IV abx per ID Surgical site cleansed with sterile saline Dressing applied to surgical site with betadine, Adaptic, DSD to R foot Patient is to be full WB with use of forefoot offloading shoe Podiatry will continue to follow Patient to f/u in wound care center with Dr. Smith/Alicia after discharge
--- NOTE | 2017-09-19 14:15 | PN ---
DATE: 09/19/2017 LOCATION: The patient is in room 303, bed 1. REASON FOR CONSULTATION AND FOLLOWUP: Coronary artery disease, peripheral vascular disease, status post amputation of large toe of the right foot. SUBJECTIVE: The patient denies any chest pain, shortness of breath, or palpitation. The patient is sitting in chair comfortably at present without any cardiac symptoms. PHYSICAL EXAMINATION: VITAL SIGNS: Blood pressure 121/74, respirations 18, pulse 90, and temperature 97.8. HEENT: Head is normocephalic. Eyes, pupils normal. Conjunctivae are pale. NECK: JVP low. Carotids equal. THORAX: AP diameter normal. LUNGS: Clear. CARDIOVASCULAR: S1 and S2. ABDOMEN: Soft. No tenderness. No organomegaly. EXTREMITIES: The patient has a dressing on the right foot for amputation of the large toe. LABORATORY DATA: WBC 9.0, hemoglobin 9.6, hematocrit 29.9, and platelets 215. Sodium 134, potassium 4.6, BUN 85, creatinine 8.5, and random sugar 143. DIAGNOSES: Peripheral vascular disease, status post amputation of the large toe of the right foot, recent drug-coated balloon angioplasty of anterior tibial artery in both legs, coronary artery disease, history of coronary angioplasty, left anterior descending with drug-eluting stent 07/2014, circumflex obtuse marginal 1 in 07/2014; last cardiac catheterization 02/2017, which reveal patent stents to the left anterior descending and left circumflex, nondominant right coronary artery diffusely diseased, which was noted from the previous cardiac catheterization. The patient has renal failure, for which he is on dialysis. Status post amputation of right big toe. Deconditioning. Anemia. PLAN: The patient is getting physical therapy without any cardiac symptoms. The patient is continued on carvedilol 3.125 b.i.d., isosorbide mononitrate 60 daily, aspirin 81 daily, PhosLo 667 mg p.o. Monday and Monday, and Plavix 75 mg daily. We will continue present therapy. We will follow with you. Katharina Mendez MD
[2017-09-20] MEDS: Piperacillin/Tazobact 2.25gm 2.25 GM/100 ML BAG IVPB SCH ×5 (00:01→23:38)
--- NOTE | 2017-09-20 00:17 | PN ---
DATE: 09/19/2017 SUBJECTIVE: The patient is in bed, in no acute distress, nontoxic, was seen earlier today in room 303. PHYSICAL EXAMINATION: VITAL SIGNS: Temperature is 98, blood pressure is 120/70, respiratory rate is 16. HEENT: Unremarkable. NECK: Supple. LUNGS: Decreased breath sounds. HEART: Normal S1 and S2. ABDOMEN: Soft. LABORATORY DATA: Reveals a white count of 9, hemoglobin of 9, platelets of 215. Chemistries were noted. ASSESSMENT AND PLAN: This is a 67-year-old male with right hallux distal phalanx osteomyelitis and gangrene, status post amputation, postoperative day #5 with recession margins, necrosis and osteomyelitis, on IV vancomycin and Zosyn and OR cultures are negative so far. The patient with end-stage renal disease, on hemodialysis with left arm arteriovenous shunt, diabetes, hypertension, and dyslipidemia. The patient has very poor vascular supply. We will follow closely with you. Review of orders. Review of vancomycin intermittent dose, and low dose Zosyn is noted. Jose Miguel Mane MD
--- NOTE | 2017-09-20 09:34 | CP.PCM.PN ---
<[place] - Last Filed: 09/20/17 09:37> Subjective - Date & Time of Evaluation Date of Evaluation: 09/20/17 Time of Evaluation: 09:33 - Subjective Subjective: 67 y/o male seen at bedside in TCU 6 days s/p right hallux amputation. Pt is resting comfortably in bed in NAD. He states he is only having mild pain today. Dressing remains clean, dry and intact to R foot. He admits to walking more with the forefoot offloading shoe with physical therapy and having the electrical stimulation done. Denies F/C/N/V/CP/SOB Objective - Vital Signs/Intake and Output Vital Signs (last 24 hours): Temp Pulse Resp BP Pulse Ox 98 F 85 18 123/64 99 09/19/17 16:00 09/19/17 17:57 09/19/17 16:00 09/19/17 17:57 09/19/17 16:00 - Medications Medications: Current Medications Acetaminophen (Tylenol 325mg Tab) 650 mg PO Q4H PRN; Protocol PRN Reason: mild pain Alprazolam (Xanax) 0.5 mg PO Q6H PRN; Protocol PRN Reason: Anxiety Last Admin: 09/19/17 02:17 Dose: 0.5 mg Alprazolam (Xanax) 0.5 mg PO HS PRN; Protocol PRN Reason: Anxiety Aspirin (Aspirin Chewable) 81 mg PO 0800 [facility] PRN Reason: Protocol Last Admin: 09/20/17 08:18 Dose: 81 mg Calcium Acetate (Phoslo) 667 mg PO WM [facility] Last Admin: 09/20/17 08:18 Dose: 667 mg Carvedilol (Coreg) 3.125 mg PO 0800,1800 [facility] PRN Reason: Protocol Last Admin: 09/19/17 17:57 Dose: 3.125 mg Clopidogrel Bisulfate (Plavix) 75 mg PO 0800 [facility] PRN Reason: Protocol Last Admin: 09/20/17 08:19 Dose: 75 mg Piperacillin Sod/Tazobactam Sod (Zosyn 2.25 Gm In 0.9% 100 Ml) 2.25 gm in 100 mls @ 100 mls/hr IVPB Q6 [facility] PRN Reason: Protocol Stop: 09/26/17 00:01 Last Admin: 09/20/17 06:35 Dose: Not Given Isosorbide Mononitrate (Imdur) 60 mg PO 0600 [facility] PRN Reason: Protocol Last Admin: 09/20/17 06:34 Dose: Not Given Ondansetron HCl (Zofran Inj) 4 mg IVP ONCE PRN; Protocol PRN Reason: Nausea/Vomiting Oxycodone/Acetaminophen (Percocet 5/325 Mg Tab) 1 tab PO Q4H PRN PRN Reason: Pain, moderate (4-7) Stop: 09/22/17 11:08 Last Admin: 09/19/17 11:19 Dose: 1 tab Oxycodone/Acetaminophen (Percocet 5/325 Mg Tab) 2 tab PO Q4H PRN PRN Reason: Pain, severe (8-10) Stop: 09/22/17 11:08 - Labs Labs: 09/18/17 09:00 09/18/17 09:00 - Constitutional Appears: Well, Non-toxic, No Acute Distress - Extremities Exam Additional comments: Lower extremity focused exam: Vasc: Right DP faintly palpable 1/4, PT non-palpable. Left DP weakly palpable, PT pulse non-palpable. Temperature gradient is warm to cold proximal to distal, R worse than L. CFT delayed but present to digits. No pedal edema noted at this time Ortho: Minimal pain with palpation of right hallux amputation site Neuro: Epicritic and protective sensation grossly diminished B/L Derm: Surgical incision site noted to right hallux with all sutures intact. Ischemic changes are noted to the area surrounding the surgical site with darkened tissue noted to entire periphery of incision site. Slight improvement in color and appearance since yesterday's visit. No dehiscence is noted at this time. Skin edges appear well coapted. No drainage, malodor, purulence, or fluctuance is noted to hallux amp site. No other clinical signs of infection appreciated. Otherwise, no open lesions, wounds, maceration, xerosis, abnormal pigmentation or abnormal growths noted B/L - Neurological Exam Neurological Exam: Alert, Awake, Oriented x3 - Psychiatric Exam Psychiatric exam: Normal Affect, Normal Mood Assessment and Plan - Assessment and Plan (Free Text) Assessment: 67 year old male 6 days s/p right partial hallux amputation secondary to ischemia and PVD Plan: Patient examined and evaluated at bedside with attending, Dr. Smith Labs and vitals reviewed; afebrile, WBC 9.0 OR wound cultures taken 09/14 - anaerobes reveal no growth Continue pain management with Percocet and Tylenol Continue IV abx per ID Surgical site cleansed with sterile saline Dressing applied to surgical site with betadine, Adaptic, DSD to R foot Patient is to be full WB with use of forefoot offloading shoe Podiatry will continue to follow Patient to f/u in wound care center with Dr. Smith/Alicia after discharge <Caroline Smith - Last Filed: 09/24/17 16:11> Objective - Vital Signs/Intake and Output Vital Signs (last 24 hours): Temp Pulse Resp BP Pulse Ox 97.8 F 95 H 18 105/69 98 09/22/17 17:18 09/22/17 17:59 09/22/17 17:18 09/22/17 17:59 09/22/17 17:18 - Labs Labs: 09/22/17 11:00 09/22/17 11:00 Attending/Attestation - Attestation I have personally seen and examined this patient.: Yes I have fully participated in the care of the patient.: Yes I have reviewed all pertinent clinical information, including history, physical exam and plan: Yes
[2017-09-20] MEDS: Oxycodone/Acetaminophen 5/325 mg Tab PO PRN (13:03)
[2017-09-20 15:37] LABS: BASO # 0.08 K/mm3 (0.0-2.0); BASO % 1.5 % (0.0-3.0); EOS # 0.2 (0.0-0.7); EOS % 4.2 % (1.5-5.0); GRAN # 4.13 (1.4-6.5); GRAN % 79.8 % (50.0-68.0); HEMOGLOBIN 9.7 g/dL (14.0-18.0); LYMPH # 0.6 (1.2-3.4); LYMPH % 11.4 % (22.0-35.0); MEAN CORPUSCULAR HEMOGLOBIN 30.3 pg (25.0-35.0); MEAN CORPUSCULAR HGB CONC 31.9 g/dl (31.0-37.0); MEAN PLATELET VOLUME 11.3 fl (7.0-11.0); MONO # 0.2 (0.1-0.6); MONO % 3.1 % (1.0-6.0); RBC 3.2 10^6/uL (3.5-6.1); RED CELL DISTRIBUTION WIDTH 15.9 % (11.5-14.5); WHITE BLOOD COUNT 5.2 10^3/ul (4.5-11.0)
[2017-09-20 18:51] LABS: CALCIUM 8.6 mg/dL (8.4-10.5); MAGNESIUM 2.1 mg/dL (1.7-2.2)
[2017-09-20 18:52] LABS: ALBUMIN 2.9 g/dL (3.0-4.8)
--- NOTE | 2017-09-21 00:34 | PN ---
DATE: 09/20/2017 SUBJECTIVE: The patient is in bed, in no acute distress. PHYSICAL EXAMINATION: VITAL SIGNS: Temperature is 98, blood pressure is 120/60, respiratory rate of 18. HEENT: Unremarkable. NECK: Supple. LUNGS: Have decreased breath sounds. HEART: Normal S1 and S2. ABDOMEN: Soft and nontender. LABORATORY DATA: Reveals a white count of 5.2, hemoglobin of 9, platelets of 183. Chemistries are noted. BUN of 43, creatinine of 4.5. Microbiology is noted. ASSESSMENT AND PLAN: This is a 67-year-old male with right hallux distal phalanx osteomyelitis and gangrene, status post amputation, postprocedure day #6 with recession margins that are consistent with osteomyelitis, on IV vancomycin and Zosyn, the vancomycin is intermittently in a patient with end-stage renal disease on hemodialysis with left arm arteriovenous shunt, diabetic, hypertension and dyslipidemia with a poor vascular supply recovery will be difficult. Review of the orders reveals the patient is on Zosyn and intermittent vancomycin. Stool culture does have Enterococcus faecalis from 08/29/2017 to 09/14/2017 cultures, no anaerobes are isolated and we will follow closely with you. Jose Miguel Mane MD
[2017-09-21] MEDS: Piperacillin/Tazobact 2.25gm 2.25 GM/100 ML BAG IVPB SCH ×4 (05:53→23:04)
[2017-09-21] MEDS: Oxycodone/Acetaminophen 5/325 mg Tab PO PRN ×2 (10:16→18:57)
--- NOTE | 2017-09-21 10:37 | PN ---
DATE: LOCATION: 303, bed 1. REASON FOR CONSULTATION AND FOLLOWUP: Coronary artery disease, peripheral vascular disease, status post amputation of large toe of the right foot, and renal failure on dialysis. SUBJECTIVE: The patient is lying flat in bed without any cardiac symptom like chest pain, shortness of breath or palpitation. PHYSICAL EXAMINATION: VITAL SIGNS: Blood pressure 135/81, respirations 20, pulse 76, the patient is afebrile. HEENT: Head is normocephalic. Eyes, pupils normal. Conjunctivae slightly pale. NECK: JVP low. Carotids equal. THORAX: AP diameter normal. LUNGS: Clear. CARDIOVASCULAR: S1 and S2. ABDOMEN: Soft, no tenderness. No organomegaly. Bowels sounds are normal. EXTREMITIES: The patient has a dressing on the right foot where he has an amputation of the large toe as there was no clubbing, no cyanosis. LABORATORY DATA: Labs were done yesterday. WBC 5.2, hemoglobin 9.7, hematocrit 30.4, and platelets . Sodium 132, potassium 3.5, BUN 43, and creatinine 4.5. AST and ALT normal. Total protein 5.7 and albumin 2.9. DIAGNOSES: Peripheral vascular disease, status post amputation of the large toe of the foot, peripheral vascular disease, recent drug-coated balloon angioplasty of anterior tibial artery in both legs, coronary artery disease, history of coronary angioplasty and stent insertion in the left anterior descending, drug-eluting stent in 07/2014, circumflex, obtuse marginal 1 in 07/2014. Last cardiac catheterization done in 02/2017, which revealed patent stents in the left anterior descending artery and left circumflex, nondominant right coronary artery diffusely diseased, which was noted from the previous cardiac catheterization. The patient has renal failure on dialysis, status post amputation of large toe, anemia, and deconditioning. PLAN: The patient is getting physical therapy, also continuing dialysis as per schedule, and the patient does not have any cardiac symptoms. The patient is on aspirin 81 daily, carvedilol 3.125 b.i.d., isosorbide mononitrate 60 daily, Plavix 75 daily, and the patient is getting also IV antibiotic, Zosyn 2.25 g IV q.6 hours. We will continue present therapy. We will follow with you. Katharina Mendez MD [facility] # [id number]
[2017-09-21] MEDS ORDERED: Vancomycin 500mg in NS 500 MG/100 ML BAG IVPB STA (10:38)
--- NOTE | 2017-09-21 10:47 | CP.PCM.PN ---
<[place] - Last Filed: 09/21/17 13:07> Subjective - Date & Time of Evaluation Date of Evaluation: 09/21/17 Time of Evaluation: 10:47 - Subjective Subjective: 67 y/o male seen at bedside in TCU 1 week s/p right hallux amputation. Pt is resting comfortably in bed in NAD. He states he is having a lot of pain today in the right leg and foot. States it comes and goes and it is intense and throbbing. Dressing remains clean, dry and intact to R foot. He admits to walking more with the forefoot offloading shoe with physical therapy and having the electrical stimulation done on a daily basis. Denies F/C/N/V/CP/SOB Objective - Vital Signs/Intake and Output Vital Signs (last 24 hours): Temp Pulse Resp BP Pulse Ox 97.8 F 76 18 147/79 100 09/20/17 10:00 09/20/17 16:39 09/20/17 10:00 09/21/17 08:21 09/20/17 16:39 Intake and Output: 09/21/17 09/21/17 06:59 18:59 Intake Total 260 Output Total 350 Balance -90 - Medications Medications: Current Medications Acetaminophen (Tylenol 325mg Tab) 650 mg PO Q4H PRN; Protocol PRN Reason: mild pain Alprazolam (Xanax) 0.5 mg PO Q6H PRN; Protocol PRN Reason: Anxiety Last Admin: 09/19/17 02:17 Dose: 0.5 mg Alprazolam (Xanax) 0.5 mg PO HS PRN; Protocol PRN Reason: Anxiety Aspirin (Aspirin Chewable) 81 mg PO 0800 [facility] PRN Reason: Protocol Last Admin: 09/21/17 08:22 Dose: 81 mg Calcium Acetate (Phoslo) 667 mg PO WM [facility] Last Admin: 09/21/17 08:22 Dose: 667 mg Carvedilol (Coreg) 3.125 mg PO 0800,1800 [facility] PRN Reason: Protocol Last Admin: 09/21/17 08:21 Dose: 3.125 mg Clopidogrel Bisulfate (Plavix) 75 mg PO 0800 [facility] PRN Reason: Protocol Last Admin: 09/21/17 08:22 Dose: 75 mg Piperacillin Sod/Tazobactam Sod (Zosyn 2.25 Gm In 0.9% 100 Ml) 2.25 gm in 100 mls @ 100 mls/hr IVPB Q6 [facility] PRN Reason: Protocol Stop: 09/26/17 00:01 Last Admin: 09/21/17 05:53 Dose: 100 mls/hr Vancomycin HCl (Vancomycin 500mg In Ns) 500 mg in 100 mls @ 200 mls/hr IVPB MWF [facility] PRN Reason: Protocol Stop: 09/21/17 11:07 Isosorbide Mononitrate (Imdur) 60 mg PO 0600 [facility] PRN Reason: Protocol Last Admin: 09/21/17 05:53 Dose: 60 mg Ondansetron HCl (Zofran Inj) 4 mg IVP ONCE PRN; Protocol PRN Reason: Nausea/Vomiting Oxycodone/Acetaminophen (Percocet 5/325 Mg Tab) 1 tab PO Q4H PRN PRN Reason: Pain, moderate (4-7) Stop: 09/22/17 11:08 Last Admin: 09/21/17 10:16 Dose: 1 tab Oxycodone/Acetaminophen (Percocet 5/325 Mg Tab) 2 tab PO Q4H PRN PRN Reason: Pain, severe (8-10) Stop: 09/22/17 11:08 - Labs Labs: 09/20/17 15:00 09/20/17 15:00 - Constitutional Appears: Well, Non-toxic, No Acute Distress - Extremities Exam Additional comments: Lower extremity focused exam: Vasc: Right DP faintly palpable 1/4, PT non-palpable. Left DP weakly palpable, PT pulse non-palpable. Temperature gradient is warm to cold proximal to distal, R worse than L. CFT delayed but present to digits. No pedal edema noted at this time Ortho: Mild to moderate pain with palpation of right hallux amputation site. Moderate tenderness on palpation of right leg and ankle. Neuro: Epicritic and protective sensation grossly diminished B/L Derm: Surgical incision site noted to right hallux with all sutures intact. Ischemic changes are noted to the area surrounding the surgical site with darkened tissue noted to entire periphery of incision site. Slight improvement in color and appearance of ruborous forefoot since yesterday's visit. No dehiscence is noted at this time. Skin edges appear well coapted. No drainage, malodor, purulence, or fluctuance is noted to hallux amp site. No other clinical signs of infection appreciated. Otherwise, no open lesions, wounds, maceration, xerosis, abnormal pigmentation or abnormal growths noted B/L - Neurological Exam Neurological Exam: Alert, Awake, Oriented x3 - Psychiatric Exam Psychiatric exam: Normal Affect, Normal Mood Assessment and Plan - Assessment and Plan (Free Text) Assessment: 67 year old male 1 week s/p right partial hallux amputation secondary to ischemia and PVD Plan: Patient examined and evaluated at bedside with attending, Dr. Smith Labs and vitals reviewed; afebrile, WBC 5.2 OR wound cultures taken 09/14 - anaerobes reveal no growth Continue pain management with Percocet and Tylenol Continue IV abx per ID Surgical site cleansed with sterile saline Dressing applied to surgical site with betadine, Adaptic, DSD to R foot Patient is to be full WB with use of forefoot offloading shoe Please continue to perform electrical stimulation to help with wound healing Podiatry will continue to follow Patient to f/u in wound care center with Dr. Smith/Alicia after discharge <Caroline Smith - Last Filed: 09/24/17 16:16> Objective - Vital Signs/Intake and Output Vital Signs (last 24 hours): Temp Pulse Resp BP Pulse Ox 97.8 F 95 H 18 105/69 98 09/22/17 17:18 09/22/17 17:59 09/22/17 17:18 09/22/17 17:59 09/22/17 17:18 - Labs Labs: 09/22/17 11:00 09/22/17 11:00 Attending/Attestation - Attestation I have personally seen and examined this patient.: Yes I have fully participated in the care of the patient.: Yes I have reviewed all pertinent clinical information, including history, physical exam and plan: Yes
--- NOTE | 2017-09-21 10:50 | PN ---
DATE: SUBJECTIVE: The patient has no complaints of any chest pain, any shortness of breath. No headaches. He states he is strong with physical therapy. PHYSICAL EXAMINATION: VITAL SIGNS: Temperature is 97.8, pulse is 96, blood pressure is 135/81, respirations 18. GENERAL: The patient is lying in bed, flat, comfortable. HEENT: No oral lesion. Anicteric sclerae. Moist mucosa. NECK: No JVD, adenopathy, or thyromegaly. CARDIOVASCULAR: S1 and S2, regular. No murmurs, rubs, or gallops. LUNGS: Clear to auscultation bilaterally. No wheeze, rales, or rhonchi. ABDOMEN: Bowel sounds are positive, soft, nontender, and nondistended. EXTREMITIES: No cyanosis, clubbing or edema. ASSESSMENT: 1. Right toe gangrene, status post amputation. 2. First right toe osteomyelitis. 3. Diabetes type 2. 4. Chronic anemia. 5. End-stage renal disease, on hemodialysis. 6. Secondary hyperthyroidism. 7. Right anterior tibial angioplasty with stent. 8. Peripheral arterial disease. PLAN: The patient is currently comfortable. He is getting his physical therapy. He is continuing with his aspirin for his peripheral arterial disease. He is on Plavix as well. The patient is on Xanax as needed. He is receiving Zosyn for antibiotics. The patient is being followed by Infectious Disease, Dr. Mane. I did review his notes. The patient also is being followed by Podiatry. The patient is getting Zosyn and intermittent vancomycin. I did speak to Infectious Disease about length of antibiotics as an outpatient. Maurice Agarwal MD
--- NOTE | 2017-09-21 12:57 | RAD ---
HISTORY: COMPARISON: 09/10/2017 TECHNIQUE: Chest PA and lateral FINDINGS: LINES AND TUBES: The right PICC line terminates in the left brachiocephalic vein. LUNG AND PLEURA: The lungs are well inflated and clear. HEART AND MEDIASTINUM: There is persistent mild cardiomegaly. The hilar and mediastinal contours are within normal limits. SKELETAL STRUCTURES: The bony structures are within normal limits for the patient's age. VISUALIZED UPPER ABDOMEN: Normal. OTHER FINDINGS: None. IMPRESSION: No active pulmonary disease. Right PICC line terminates in the left brachiocephalic vein.
--- NOTE | 2017-09-21 22:50 | PN ---
DATE: 09/21/2017 SUBJECTIVE: The patient is in bed, in no acute distress, nontoxic. PHYSICAL EXAMINATION: VITAL SIGNS: On exam, temperature is 98, blood pressure is 104/40, respiratory rate of 18. HEENT: Unremarkable. NECK: Supple. LUNGS: Have decreased breath sounds. HEART: Normal S1 and S2. ABDOMEN: Soft and nontender. LABORATORY DATA: Reveals a white count of 5.2, hemoglobin of 9, platelets of 183. Chemistries reveals a BUN of 43, creatinine of 4.5. ASSESSMENT AND PLAN: This is a 67-year-old male who was admitted with right hallux distal phalanx osteomyelitis and gangrene, status post amputation, postprocedure day #7. Recommended Intermittent vancomycin therapy in each dialysis for complete next four weeks. The patient had a chest x-ray earlier today. Lungs are aerated and clear and currently on vancomycin Monday, Monday, and Monday next three weeks to complete therapy. The patient is also on Zosyn, which may be discontinued upon discharge. Jose Miguel Mane MD
[2017-09-22] MEDS: Piperacillin/Tazobact 2.25gm 2.25 GM/100 ML BAG IVPB SCH ×4 (05:00→23:23)
[2017-09-22] MEDS ORDERED: Vancomycin 500mg in NS 500 MG/100 ML BAG IVPB STA ×2 (09:42→17:33)
--- NOTE | 2017-09-22 11:05 | PN ---
DATE: REASON FOR CONSULTATION AND FOLLOWUP: Coronary artery disease, peripheral arterial disease, status post amputation of the right toe, end-stage renal failure, on dialysis. SUBJECTIVE: The patient denies any chest pain, shortness of breath or any palpitations, feels better off palpitations. PHYSICAL EXAMINATION: GENERAL: Not in apparent distress. VITAL SIGNS: As follows, temperature afebrile, heart rate 92, and blood pressure 116/92. HEENT: PERRLA intact. NECK: Supple. No carotid bruits or thyromegaly. CHEST: Clear to auscultation. HEART: S1 and S2, regular. ABDOMEN: Soft. EXTREMITIES: Clubbing and cyanosis negative. LABORATORY DATA: Blood workup as follows, WBC , hematocrit 30.4, and platelet count 183. Chemistry shows sodium 132, potassium 3.5, chloride 92, carbon dioxide 31, anion gap of 13, BUN 43, and creatinine 4.5. Total protein 5.7, albumin 2.9, and albumin-globulin ratio is 1. IMPRESSION: Peripheral arterial disease, status post amputation of the large toe of the foot, recent drug-coated balloon angioplasty in both SFA and then more recently anterior tibial in both legs, coronary artery disease, history of percutaneous transluminal coronary angioplasty and drug eluting stent in 08/20/2017, circumflex and obtuse margin 1. Last catheterization done in 02/2017, patent stent, aggressive medical treatment recommended. Continue dialysis. Continue aspirin, Plavix, Coreg, and antibiotic. We will follow with you. Thank you Dr. Agarwal for providing us the opportunity in taking care of the patient, Jf Amos. Katharina Tejeda MD
[2017-09-22 11:18] LABS: HEMOGLOBIN 9.7 g/dL (14.0-18.0)
[2017-09-22 11:30] LABS: ALB/GLOB RATIO 1.1 (1.1-1.8); ALBUMIN 2.8 g/dL (3.0-4.8); CALCIUM 9.9 mg/dL (8.4-10.5)
--- NOTE | 2017-09-22 16:03 | CP.PCM.PN ---
<MadridRut - Last Filed: 09/22/17 16:03> Subjective - Date & Time of Evaluation Date of Evaluation: 09/22/17 Time of Evaluation: 16:03 - Subjective Subjective: 67 y/o male seen at bedside in TCU 8 days s/p right hallux amputation. Pt is resting comfortably in bed in NAD. Dressing remains clean, dry and intact to R foot. Pt is still working with PT and having the electric stimulation done. He is aware that the toe is not healing very well at the moment. Admits to still having pain in the right leg and foot, moderate and throbbing in nature. Denies F/C/N/V/CP/SOB Objective - Vital Signs/Intake and Output Vital Signs (last 24 hours): Temp Pulse Resp BP Pulse Ox 98.3 F 81 18 93/66 L 100 09/22/17 11:15 09/22/17 15:11 09/22/17 11:15 09/22/17 15:11 09/22/17 11:15 Intake and Output: 09/22/17 09/22/17 06:59 18:59 Intake Total 260 Output Total 350 Balance -90 - Medications Medications: Current Medications Acetaminophen (Tylenol 325mg Tab) 650 mg PO Q4H PRN; Protocol PRN Reason: mild pain Alprazolam (Xanax) 0.5 mg PO Q6H PRN; Protocol PRN Reason: Anxiety Last Admin: 09/19/17 02:17 Dose: 0.5 mg Alprazolam (Xanax) 0.5 mg PO HS PRN; Protocol PRN Reason: Anxiety Aspirin (Aspirin Chewable) 81 mg PO 0800 [facility] PRN Reason: Protocol Last Admin: 09/22/17 08:52 Dose: 81 mg Calcium Acetate (Phoslo) 667 mg PO WM [facility] Last Admin: 09/22/17 15:15 Dose: 667 mg Carvedilol (Coreg) 3.125 mg PO 0800,1800 [facility] PRN Reason: Protocol Last Admin: 09/22/17 15:11 Dose: Not Given Clopidogrel Bisulfate (Plavix) 75 mg PO 0800 [facility] PRN Reason: Protocol Last Admin: 09/22/17 08:53 Dose: 75 mg Piperacillin Sod/Tazobactam Sod (Zosyn 2.25 Gm In 0.9% 100 Ml) 2.25 gm in 100 mls @ 100 mls/hr IVPB Q6 [facility] PRN Reason: Protocol Stop: 09/26/17 00:01 Last Admin: 09/22/17 15:16 Dose: 100 mls/hr Isosorbide Mononitrate (Imdur) 60 mg PO 0600 [facility] PRN Reason: Protocol Last Admin: 09/22/17 05:00 Dose: 60 mg Ondansetron HCl (Zofran Inj) 4 mg IVP ONCE PRN; Protocol PRN Reason: Nausea/Vomiting - Labs Labs: 09/22/17 11:00 09/22/17 11:00 - Constitutional Appears: Well, Non-toxic - Extremities Exam Additional comments: Lower extremity focused exam: Vasc: Right DP faintly palpable /4, PT non-palpable. Left DP weakly palpable, PT pulse non-palpable. Temperature gradient is warm to cold proximal to distal, R worse than L. CFT delayed but present to digits. No pedal edema noted at this time Ortho: Mild to moderate pain with palpation of right hallux amputation site. Moderate tenderness on palpation of right leg and ankle. Neuro: Epicritic and protective sensation grossly diminished B/L Derm: Surgical incision site noted to right hallux with all sutures intact. Ischemic changes noted to entirety of incision site. No dehiscence is noted at this time. Skin edges appear well coapted. No drainage, malodor, purulence, or fluctuance is noted to hallux amp site. No other clinical signs of infection. Otherwise, no open lesions, wounds, maceration, xerosis, abnormal pigmentation or abnormal growths noted B/L - Neurological Exam Neurological Exam: Alert, Awake, Oriented x3 - Psychiatric Exam Psychiatric exam: Normal Affect, Normal Mood Assessment and Plan - Assessment and Plan (Free Text) Assessment: 67 year old male 8 days s/p right partial hallux amputation secondary to ischemia and PVD Plan: Patient examined and evaluated at bedside Discussed plan with attending, Dr. Vargas Labs and vitals reviewed; afebrile, WBC 5.2 yesterday OR wound cultures taken 09/14 - anaerobes reveal no growth Continue pain management with Percocet and Tylenol Continue IV abx per ID Surgical site cleansed with sterile saline Dressing applied to surgical site with betadine, Adaptic, DSD to R foot Patient is to continue to be full WB with use of forefoot offloading shoe Please continue to perform electrical stimulation to help with wound healing Discussed with patient the possibility that this wound may not heal and may require more proximal amputation Pt and pt's demonstrated verbal understanding Podiatry will continue to follow Patient to f/u in wound care center with Dr. Smith/Alicia on a weekly basic ( , Mon or ) after discharge Nursing changes to be done biweekly (M,F) with saline cleanse and betadine, adaptic and DSD to right foot wound <Dylon Vargas - Last Filed: 09/23/17 08:32> Objective - Vital Signs/Intake and Output Vital Signs (last 24 hours): Temp Pulse Resp BP Pulse Ox 97.8 F 95 H 18 105/69 98 09/22/17 17:18 09/22/17 17:59 09/22/17 17:18 09/22/17 17:59 09/22/17 17:18 Intake and Output: 09/23/17 09/23/17 06:59 18:59 Intake Total 260 Output Total 350 Balance -90 - Medications Medications: Current Medications Acetaminophen (Tylenol 325mg Tab) 650 mg PO Q4H PRN; Protocol PRN Reason: mild pain Alprazolam (Xanax) 0.5 mg PO Q6H PRN; Protocol PRN Reason: Anxiety Last Admin: 09/22/17 18:43 Dose: 0.5 mg Alprazolam (Xanax) 0.5 mg PO HS PRN; Protocol PRN Reason: Anxiety Aspirin (Aspirin Chewable) 81 mg PO 0800 [facility] PRN Reason: Protocol Last Admin: 09/23/17 08:00 Dose: 81 mg Calcium Acetate (Phoslo) 667 mg PO WM [facility] Last Admin: 09/23/17 08:03 Dose: 667 mg Carvedilol (Coreg) 3.125 mg PO 0800,1800 [facility] PRN Reason: Protocol Last Admin: 09/23/17 07:59 Dose: 3.125 mg Clopidogrel Bisulfate (Plavix) 75 mg PO 0800 [facility] PRN Reason: Protocol Last Admin: 09/23/17 07:59 Dose: 75 mg Piperacillin Sod/Tazobactam Sod (Zosyn 2.25 Gm In 0.9% 100 Ml) 2.25 gm in 100 mls @ 100 mls/hr IVPB Q6 [facility] PRN Reason: Protocol Stop: 09/26/17 00:01 Last Admin: 09/23/17 05:24 Dose: 100 mls/hr Isosorbide Mononitrate (Imdur) 60 mg PO 0600 [facility] PRN Reason: Protocol Last Admin: 09/23/17 05:24 Dose: 60 mg Ondansetron HCl (Zofran Inj) 4 mg IVP ONCE PRN; Protocol PRN Reason: Nausea/Vomiting Oxycodone/Acetaminophen (Percocet 5/325 Mg Tab) 1 tab PO Q4H PRN; Protocol PRN Reason: Pain, moderate (4-7) Stop: 09/25/17 16:34 Oxycodone/Acetaminophen (Percocet 5/325 Mg Tab) 2 tab PO Q4H PRN; Protocol PRN Reason: Pain, severe (8-10) Stop: 09/25/17 16:35 Last Admin: 09/22/17 16:47 Dose: 2 tab - Labs Labs: 09/22/17 11:00 09/22/17 11:00 Attending/Attestation - Attestation I have personally seen and examined this patient.: Yes I have fully participated in the care of the patient.: Yes I have reviewed all pertinent clinical information, including history, physical exam and plan: Yes
[2017-09-22] MEDS ORDERED: Oxycodone/Acetaminophen 5/325 mg Tab PO PRN (16:33)
[2017-09-22] MEDS: Oxycodone/Acetaminophen 5/325 mg Tab PO PRN (16:47)
[2017-09-22 17:20] VITALS: BP 105/69; TEMP 97.8; O2SAT 98
[2017-09-22 18:06] VITALS: PULSE 95
--- NOTE | 2017-09-22 18:41 | CP.PCM.PN ---
Subjective - Date & Time of Evaluation Date of Evaluation: 09/22/17 Time of Evaluation: 11:55 - Subjective Subjective: Still with pain in the right foot but better, no fevers overnight. Objective - Vital Signs/Intake and Output Vital Signs (last 24 hours): Temp Pulse Resp BP Pulse Ox 97.9 F 92 H 18 116/92 H 90 L 09/21/17 17:57 09/21/17 17:57 09/21/17 17:57 09/21/17 17:57 09/21/17 17:57 Intake and Output: 09/22/17 09/22/17 06:59 18:59 Intake Total 260 Output Total 350 Balance -90 - Medications Medications: Current Medications Acetaminophen (Tylenol 325mg Tab) 650 mg PO Q4H PRN; Protocol PRN Reason: mild pain Alprazolam (Xanax) 0.5 mg PO Q6H PRN; Protocol PRN Reason: Anxiety Last Admin: 09/19/17 02:17 Dose: 0.5 mg Alprazolam (Xanax) 0.5 mg PO HS PRN; Protocol PRN Reason: Anxiety Aspirin (Aspirin Chewable) 81 mg PO 0800 [facility] PRN Reason: Protocol Last Admin: 09/22/17 08:52 Dose: 81 mg Calcium Acetate (Phoslo) 667 mg PO WM [facility] Last Admin: 09/22/17 08:53 Dose: 667 mg Carvedilol (Coreg) 3.125 mg PO 0800,1800 [facility] PRN Reason: Protocol Last Admin: 09/21/17 17:34 Dose: 3.125 mg Clopidogrel Bisulfate (Plavix) 75 mg PO 0800 [facility] PRN Reason: Protocol Last Admin: 09/22/17 08:53 Dose: 75 mg Piperacillin Sod/Tazobactam Sod (Zosyn 2.25 Gm In 0.9% 100 Ml) 2.25 gm in 100 mls @ 100 mls/hr IVPB Q6 [facility] PRN Reason: Protocol Stop: 09/26/17 00:01 Last Admin: 09/22/17 05:00 Dose: 100 mls/hr Vancomycin HCl (Vancomycin 500mg In Ns) 500 mg in 100 mls @ 200 mls/hr IVPB MWF [facility] PRN Reason: Protocol Stop: 09/22/17 10:11 Isosorbide Mononitrate (Imdur) 60 mg PO 0600 [facility] PRN Reason: Protocol Last Admin: 09/22/17 05:00 Dose: 60 mg Ondansetron HCl (Zofran Inj) 4 mg IVP ONCE PRN; Protocol PRN Reason: Nausea/Vomiting Oxycodone/Acetaminophen (Percocet 5/325 Mg Tab) 1 tab PO Q4H PRN PRN Reason: Pain, moderate (4-7) Stop: 09/22/17 11:08 Last Admin: 09/21/17 18:57 Dose: 1 tab Oxycodone/Acetaminophen (Percocet 5/325 Mg Tab) 2 tab PO Q4H PRN PRN Reason: Pain, severe (8-10) Stop: 09/22/17 11:08 Last Admin: 09/22/17 09:10 Dose: 2 tab - Labs Labs: 09/20/17 15:00 09/20/17 15:00 - Constitutional Appears: Non-toxic - Head Exam Head Exam: NORMAL INSPECTION - Respiratory Exam Respiratory Exam: Decreased Breath Sounds - Cardiovascular Exam Cardiovascular Exam: +S1, +S2 - GI/Abdominal Exam GI & Abdominal Exam: Soft. absent: Tenderness Assessment and Plan - Assessment and Plan (Free Text) Plan: Assessment right hallux distal phalanx osteomyelitis and gangrene S/P amputation POD #8; resection margins still show necrosis and osteomyelitis ESRD on HD with left arm AV shunt DM HTN dyslipidemia Plan continue intermittent IV Vanco to complete 4 weeks with weekly ESR, CRP, CBC, CMP, Vanco trough levels
--- NOTE | 2017-09-23 02:01 | DS ---
HISTORY OF PRESENT ILLNESS: This is a 67-year-old male, who had come into the Transitional Care Unit for rehab. The patient had partial amputation of his right first toe. He has been getting dialysis. He is getting local wound care. He has no complaints of any chest pain or shortness of breath. He is improving physically and he is getting stronger. PHYSICAL EXAMINATION: VITAL SIGNS: Temperature is 97.9, pulse rate of 92, blood pressure 116/92, . GENERAL: The patient is lying in bed, flat, comfortable. HEENT: No oral lesion. Anicteric sclerae. Moist mucosa. NECK: No JVD, adenopathy, or thyromegaly. CARDIOVASCULAR: S1 and S2, regular. No murmurs, rubs, or gallops. LUNGS: Clear to auscultation bilaterally. No wheeze, rales, or rhonchi. ABDOMEN: Bowel sounds are positive, soft, nontender, and nondistended. EXTREMITIES: No cyanosis, clubbing or edema. ASSESSMENT: 1. Right toe gangrene, status post amputation. 2. First right toe osteomyelitis. 3. Diabetes type 2. 4. Chronic anemia. 5. End-stage renal disease, on hemodialysis. 6. Secondary hyperparathyroidism. 7. Right anterior tibial angioplasty with stent. 8. Peripheral arterial disease. PLAN: The patient is going to continue with aspirin and carvedilol for his heart. The patient is receiving Percocet for pain. He is on PhosLo for his secondary hyperparathyroidism. The patient is receiving Zosyn for antibiotics. He is going to continue with vancomycin 500 mg on dialysis for the next 3 weeks. CONDITION: Stable. ACTIVITIES: Increase as tolerated. The patient is to be discharged home. Maurice Agarwal MD
[2017-09-23] MEDS: Piperacillin/Tazobact 2.25gm 2.25 GM/100 ML BAG IVPB SCH (05:24)
[2017-09-23] MEDS: Oxycodone/Acetaminophen 5/325 mg Tab PO PRN (08:39)
--- NOTE | 2017-09-23 13:36 | CP.PCM.PN ---
Subjective - Date & Time of Evaluation Date of Evaluation: 09/23/17 Time of Evaluation: 09:00 - Subjective Subjective: 67 y/o male seen at bedside in TCU 9 days s/p right hallux amputation. Pt is resting comfortably in bed in NAD. Dressing remains clean, dry and intact to R foot. Pt is still working with PT and having the electric stimulation done. He is aware that the toe is not healing very well at the moment. Admits to still having pain in the right leg and foot, moderate and throbbing in nature. Denies F/C/N/V/CP/SOB Objective - Vital Signs/Intake and Output Vital Signs (last 24 hours): Temp Pulse Resp BP Pulse Ox 97.8 F 95 H 18 105/69 98 09/22/17 17:18 09/22/17 17:59 09/22/17 17:18 09/22/17 17:59 09/22/17 17:18 Intake and Output: 09/23/17 09/23/17 06:59 18:59 Intake Total 260 Output Total 350 Balance -90 - Medications Medications: Current Medications Acetaminophen (Tylenol 325mg Tab) 650 mg PO Q4H PRN; Protocol PRN Reason: mild pain Alprazolam (Xanax) 0.5 mg PO Q6H PRN; Protocol PRN Reason: Anxiety Last Admin: 09/22/17 18:43 Dose: 0.5 mg Alprazolam (Xanax) 0.5 mg PO HS PRN; Protocol PRN Reason: Anxiety Aspirin (Aspirin Chewable) 81 mg PO 0800 [facility] PRN Reason: Protocol Last Admin: 09/23/17 08:00 Dose: 81 mg Calcium Acetate (Phoslo) 667 mg PO [facility] Last Admin: 09/23/17 13:12 Dose: 667 mg Carvedilol (Coreg) 3.125 mg PO 0800,1800 [facility] PRN Reason: Protocol Last Admin: 09/23/17 07:59 Dose: 3.125 mg Clopidogrel Bisulfate (Plavix) 75 mg PO 0800 [facility] PRN Reason: Protocol Last Admin: 09/23/17 07:59 Dose: 75 mg Isosorbide Mononitrate (Imdur) 60 mg PO 0600 [facility] PRN Reason: Protocol Last Admin: 09/23/17 05:24 Dose: 60 mg Ondansetron HCl (Zofran Inj) 4 mg IVP ONCE PRN; Protocol PRN Reason: Nausea/Vomiting Oxycodone/Acetaminophen (Percocet 5/325 Mg Tab) 1 tab PO Q4H PRN; Protocol PRN Reason: Pain, moderate (4-7) Stop: 09/25/17 16:34 Oxycodone/Acetaminophen (Percocet 5/325 Mg Tab) 2 tab PO Q4H PRN; Protocol PRN Reason: Pain, severe (8-10) Stop: 09/25/17 16:35 Last Admin: 09/23/17 08:39 Dose: 2 tab - Labs Labs: 09/22/17 11:00 09/22/17 11:00 - Constitutional Appears: Well, Non-toxic, No Acute Distress - Extremities Exam Additional comments: Lower extremity focused exam: Vasc: Right DP faintly palpable 1/4, PT non-palpable. Left DP weakly palpable, PT pulse non-palpable. Temperature gradient is warm to cold proximal to distal, R worse than L. CFT delayed but present to digits. No pedal edema noted at this time Ortho: Mild to moderate pain with palpation of right hallux amputation site. Moderate tenderness on palpation of right leg and ankle. Neuro: Epicritic and protective sensation grossly diminished B/L Derm: Surgical incision site noted to right hallux with all sutures intact. Ischemic darkening changes noted to entirety of incision site. No dehiscence is noted at this time. Skin edges appear well coapted. No drainage, malodor, purulence, or fluctuance is noted to hallux amp site. No other clinical signs of infection. Otherwise, no open lesions, wounds, maceration, xerosis, abnormal pigmentation or abnormal growths noted B/L - Neurological Exam Neurological Exam: Alert, Awake, Oriented x3 - Psychiatric Exam Psychiatric exam: Normal Affect, Normal Mood Assessment and Plan - Assessment and Plan (Free Text) Assessment: 67 year old male 9 days s/p right partial hallux amputation secondary to ischemia and PVD Plan: Patient examined and evaluated at bedside with attending, Dr. Vargas. Labs and vitals reviewed; afebrile. Continue pain management with Percocet and Tylenol Continue IV abx per ID Surgical site cleansed with sterile saline. Dressing applied to surgical site with betadine, Adaptic, DSD to R foot Patient is to continue to be full WB with use of forefoot offloading shoe. Pt directed to walk as much as tolerated upon discharge. Please continue to perform electrical stimulation to help with wound healing Discussed with patient the possibility that this wound may not heal and may require more proximal amputation Pt and pt's demonstrated verbal understanding. Patient to f/u in wound care center with Dr. Smith/Alicia on a weekly basic ( , Mon or ) upon discharge. Nursing changes to be done biweekly (M,F) with saline cleanse and betadine, adaptic and DSD to right foot wound
--- NOTE | 2017-09-23 23:56 | PN ---
DATE: 09/23/2017 SUBJECTIVE: The patient seen early this morning in room #303. PHYSICAL EXAMINATION: VITAL SIGNS: Temperature is 98, blood pressure is 112/70 and respiratory rate is 16. HEENT: Unremarkable. NECK: Supple. LUNGS: Decreased breath sounds. HEART: Normal S1 and S2. ABDOMEN: Soft and nontender. LABORATORY DATA: Reviewed. ASSESSMENT AND PLAN: This is a 67-year-old male with right hallux distal phalanx osteomyelitis and gangrene, status post amputation, postoperative day #9, recession margins with necrosis. The patient with end-stage renal disease on hemodialysis with left arm arteriovenous shunt, on intermittent vancomycin for four weeks and vancomycin random levels both weekly. The patient will follow up with PMD. Jose Miguel Mane MD
--- NOTE | 2017-09-24 06:28 | DS ---
HISTORY OF PRESENT ILLNESS: The patient is a 67-year-old, who came to the emergency room on 09/10 with right foot worsening wound. Since the patient has osteomyelitis, has been getting local wound care, doing well, discharged to home today. PHYSICAL EXAMINATION: GENERAL: The patient is awake, alert, able to communicate. VITAL SIGNS: He is afebrile, pulse 85, respirations 18, blood pressure 105/69. LUNGS: Bilateral fair airflow. No rhonchi or crackles. HEART: S1 and S2, audible. ABDOMEN: Soft, nontender, no rebound, no guarding. NEUROLOGIC: The patient is awake and alert, able to communicate. EXTREMITIES: Right forefoot is in a dressing, done by seo marketing specialist. LABORATORY DATA: WBC is 5.2, hemoglobin 9.7, hematocrit 30.4, platelets 183. Chemistry, sodium 137, potassium 4.0, chloride 97, CO2 of 29, BUN 44, creatinine 6.1, blood sugar of 240. ASSESSMENT AND PLAN: 1. End-stage renal disease, on hemodialysis. 2. Right toe gangrene, status post amputation. 3. Status post first right toe osteomyelitis. 4. Non-insulin dependent diabetes. 5. Anemia of chronic disease. 6. Status post right anterior tibial angioplasty. 7. Peripheral vascular disease. 8. Hypertension. 9. Hyperlipidemia. So the plan is the patient is being discharged home today. He will be receiving vancomycin intermittently during dialysis. He is given prescription for analgesics, he will resume his medications including Klonopin, Flomax, Renagel, Ranexa, Prozac and Coreg. Mary Thomas MD
== END 2017-09-23 15:18 | disposition home or self-care (01) | DRG 638 ==
LOC: TRCU 19:38
PROVIDERS: ADMIT Internal Medicine Nephrology; ATTEND Internal Medicine Nephrology
PROC: F07Z9FZ Gait Training/Functional Ambulation Treatment using Assistive, Adaptive, Supportive or Protective Equipment (ICD-10-PCS; principal; 2017-09-16)
PROC: F07M6ZZ Therapeutic Exercise Treatment of Musculoskeletal System - Whole Body (ICD-10-PCS; 2017-09-16)
PROC: F08Z1ZZ Dressing Techniques Treatment (ICD-10-PCS; 2017-09-16)
PROC: F08Z2ZZ Grooming/Personal Hygiene Treatment (ICD-10-PCS; 2017-09-16)
PROC: 5A1D70Z Performance of Urinary Filtration, Intermittent, Less than 6 Hours Per Day (ICD-10-PCS; 2017-09-18)
PROC: 5A1D70Z Performance of Urinary Filtration, Intermittent, Less than 6 Hours Per Day (ICD-10-PCS; 2017-09-20)
PROC: 5A1D70Z Performance of Urinary Filtration, Intermittent, Less than 6 Hours Per Day (ICD-10-PCS; 2017-09-22)
DX: E11.69 Type 2 diabetes mellitus with other specified complication (principal); M86.9 Osteomyelitis, unspecified; D69.6 Thrombocytopenia, unspecified; E11.22 Type 2 diabetes mellitus with diabetic chronic kidney disease; E11.52 Type 2 diabetes mellitus with diabetic peripheral angiopathy with gangrene; I12.0 Hypertensive chronic kidney disease with stage 5 chronic kidney disease or end stage renal disease; E05.90 Thyrotoxicosis, unspecified without thyrotoxic crisis or storm; E20.8 Other hypoparathyroidism; E78.5 Hyperlipidemia, unspecified; D63.8 Anemia in other chronic diseases classified elsewhere; I25.10 Atherosclerotic heart disease of native coronary artery without angina pectoris; L08.9 Local infection of the skin and subcutaneous tissue, unspecified; N18.6 End stage renal disease; N25.81 Secondary hyperparathyroidism of renal origin; Z89.411 Acquired absence of right great toe; Z95.5 Presence of coronary angioplasty implant and graft; Z99.2 Dependence on renal dialysis

== ENCOUNTER 2017-09-27 09:04 | Inpatient (IN) | payer MEDICARE, OTHER ==
--- NOTE | 2017-09-27 09:47 | ED PDOC ---
Arrival/HPI - History of Present Illness Time/Duration: Prior to Arrival Symptom Onset: Gradual Symptom Course: Unchanged, Worsening Quality: Other (weak) Severity Level: Mild, Moderate Activities at Onset: Rest, Light Context: Walking, Home <Tessie Antunez - Last Filed: 09/27/17 23:56> <Lamont Leon - Last Filed: 09/28/17 02:55> - General Chief Complaint: Weakness/Neurological Deficit Time Seen by Provider: 09/27/17 09:16 - History of Present Illness Narrative History of Present Illness (Text): 09/27/17 09:42 Pt is a 67 yo M BIBA for general weakness x 1 week s/p right hallux amputation last Monday. Pt is a insulin dependent diabetic w CHF and CKD. Pt reports that he was due for dialysis this am but given that he feels so weak, prompted him to go to ER to get assessed. Pt complaining of feeling shaky and a little short of breath. He has not taken his regular meds this am nor has he eaten. Pt is also scheduled to see surgeon at 2 pm today for surgical f/u appt. Denies cp, LOC, head trauma, nausea, vomiting, diarrhea or GIB or dysuria. (Tessie Antunez) Past Medical History - Provider Review Nursing Documentation Reviewed: Yes - Travel History Have you recently traveled outside [place] w/in the past 3 mons?: No - Infectious Disease Hx of Infectious Diseases: None - Tetanus Immunization Tetanus Immunization: Unknown - Cardiac Hx Cardiac Disorders: Yes Hx Pacemaker: No - Pulmonary Hx Respiratory Disorders: Yes Hx Chronic Obstructive Pulmonary Disease (COPD): Yes - Neurological Hx Neurological Disorder: Yes Hx Dizziness: Yes - HEENT Hx HEENT Disorder: Yes (WEARS RX GLASSES) - Renal Hx Renal Disorder: Yes Type of Dialysis Access: L upper arm Date of Last Dialysis Treatment: 09/25/17 - Endocrine/Metabolic Hx Endocrine Disorders: Yes Hx Diabetes Mellitus Type 1: Yes - Hematological/Oncological Hx Blood Disorders: No Hx Blood Transfusions: No Hx Blood Transfusion Reaction: No - Integumentary Hx Dermatological Disorder: Yes Other/Comment: hx of wounds due to diabetes multiple skin discolorations and dry skin both legs, left great toe swelling pain color deep red and brown skin areas around toenail, generalized dry itchy skin - Musculoskeletal/Rheumatological Hx Arthritis: Yes Other/Comment: R great toe amp - Gastrointestinal Hx Gastrointestinal Disorders: Yes - Genitourinary/Gynecological Hx Genitourinary Disorders: Yes - Psychiatric Hx Psychophysiologic Disorder: No Hx Emotional Abuse: No Hx Physical Abuse: No Hx Substance Use: No - Surgical History Other/Comment: shunt in L arm. Picc VJ. R great toeamp - Anesthesia Hx Anesthesia: Yes Hx Anesthesia Reactions: No Hx Malignant Hyperthermia: No - Suicidal Assessment Feels Threatened In Home Enviroment: No <Tessie Antunez - Last Filed: 09/27/17 23:56> Family/Social History - Physician Review Nursing Documentation Reviewed: Yes Family/Social History: Unknown Family HX Smoking Status: Former Smoker Hx Alcohol Use: No Hx Substance Use: No Hx Substance Use Treatment: No <Tessie Antunez - Last Filed: 09/27/17 23:56> Allergies/Home Meds <Tessie Antunez - Last Filed: 09/27/17 23:56> <Lamont Leon - Last Filed: 09/28/17 02:55> Allergies/Adverse Reactions: Allergies No Known Allergies Allergy (Verified 09/27/17 09:17) Home Medications: Home Meds Medication Instructions Recorded Confirmed Aspirin [Aspirin Chewable] 81 mg PO DAILY 09/10/17 09/27/17 Carvedilol [Coreg] 25 mg PO BID 09/10/17 09/27/17 FLUoxetine [Prozac] 20 mg PO DAILY 09/10/17 09/27/17 Ranolazine [Ranexa] 500 mg PO BID 09/10/17 09/27/17 Sevelamer [Renagel] 800 mg PO TID 09/10/17 09/27/17 Tamsulosin [Flomax] 0.4 mg PO DAILY 09/10/17 09/27/17 clonazePAM [Klonopin] 0.5 mg PO BID 09/10/17 09/27/17 Review of Systems - Review of Systems Constitutional: Fatigue Eyes: Normal ENT: Normal Respiratory: SOB Cardiovascular: Normal Gastrointestinal: Normal Genitourinary Male: Normal Musculoskeletal: Normal Skin: Other (right hallux amputation) Neurological: Dizziness, Gait Changes Endocrine: Normal Hemo/Lymphatic: Normal Psychiatric: Normal <Tessie Antunez - Last Filed: 09/27/17 23:56> Physical Exam Vital Signs Reviewed: Yes Temperature: Afebrile Blood Pressure: Hypotensive Pulse: Regular Respiratory Rate: Normal Appearance: Positive for: Uncomfortable, Cachectic Pain Distress: None Mental Status: Positive for: Alert and Oriented X 3, Lethargic - Systems Exam Head: Present: Atraumatic, Normocephalic Pupils: Present: PERRL Extroacular Muscles: Present: EOMI Conjunctiva: Present: Normal Mouth: Present: Moist Mucous Membranes Neck: Present: Normal Range of Motion Respiratory/Chest: Present: Clear to Auscultation, Good Air Exchange. No: Respiratory Distress, Accessory Muscle Use Cardiovascular: Present: Regular Rate and Rhythm, Normal S1, S2. No: Murmurs Abdomen: Present: Normal Bowel Sounds. No: Tenderness, Distention, Peritoneal Signs Back: Present: Normal Inspection Upper Extremity: Present: Normal Inspection. No: Cyanosis, Edema Lower Extremity: Present: Normal Inspection. No: Edema Neurological: Present: GCS=15, CN II-XII Intact, Speech Normal, Motor Func Grossly Intact (3/5 motor x 4 bilateral), Normal Sensory Function Skin: Present: Warm, Dry, Normal Color, Other (right LE and foot non- erythematous or edematous, dressing dry and non-odorous). No: Rashes Psychiatric: Present: Alert, Oriented x 3, Normal Insight, Normal Concentration <Tessie Antunez - Last Filed: 09/27/17 23:56> Vital Signs Temp Pulse Resp BP Pulse Ox 09/27/17 12:28 97.6 F 77 12 99 09/27/17 10:30 72 16 109/66 99 09/27/17 09:15 69 14 85/53 L 96 Medical Decision Making - EKG Interpretation Interpreted by ED Physician: Yes (Sinus rhythm w fusion complexes and low voltage QRS) <Tessie Antunez - Last Filed: 09/27/17 23:56> <Lamont Leon - Last Filed: 09/28/17 02:55> ED Course and Treatment: 09/27/17 11:44 Pt is a 67 yo M BIBA for general weakness x 1 week s/p right hallux amputation last Monday. 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 agarwal called and pt admitted to telemetry 09/27/17 15:23 K noted to be 2.4; Dr. Agarwal contacted to advised K-Dur 40 mEq po ordered as per (Tessie Antunez) - Lab Interpretations Lab Results: 09/27/17 10:00 09/27/17 10:00 Lab Results 09/27/17 12:00: Phosphorus 6.4 H, Magnesium 2.6 H 09/27/17 10:40: Troponin I 0.56 H* D 09/27/17 10:00: pO2 67 H, VBG pH 7.29 L, VBG pCO2 66.0 H*, VBG HCO3 31.7 H, VBG Total CO2 33.7 H, VBG O2 Sat (Calc) 91.9 H, VBG Base Excess 3.2 H, VBG Potassium 4.0, Sodium 140.0, Chloride 99.0, Glucose 219 H, Lactate 2.4 H, FiO2 21.0, Venous Blood Potassium 4.0 09/27/17 10:00: C-React Prot High Sens > 15.00 H 09/27/17 10:00: Sodium 140, Chloride 97 L, Potassium 4.1, Carbon Dioxide 28, Anion Gap 19, BUN 52 H, Creatinine 6.8 H, Est GFR ( Amer) 10, Est GFR ( Non-Af Amer) 8, Random Glucose 217 H, Calcium 9.8, Total Bilirubin 1.0, AST 17 D, ALT 25, Alkaline Phosphatase 136 H, Total Protein 5.8, Albumin 3.1, Globulin 2.7, Albumin/Globulin Ratio 1.1 09/27/17 10:00: WBC 6.4 D, RBC 3.38 L, Hgb 10.5 L, Hct 34.4 L, MCV 101.8 D, MCH 31.1, MCHC 30.5 L, RDW 19.1 H, Plt Count 146, MPV 12.5 H, Gran % 74.8 H, Lymph % (Auto) 14.8 L, [place] % (Auto) 8.2 H, Eos % (Auto) 1.4 L, Baso % (Auto) 0.8, Gran # 4.77, Lymph # (Auto) 0.9 L, [place] # (Auto) 0.5, Eos # (Auto) 0.1, Baso # (Auto) 0.05 - RAD Interpretation Radiology Orders: 09/27/17 09:25 CXR [CHEST TWO VIEWS (PA/LAT)] [RAD] Stat - Medication Orders Current Medication Orders: Acetaminophen (Tylenol 325mg Tab) 650 mg PO Q4H PRN PRN Reason: Fever >100.4 F Last Admin: 09/27/17 19:59 Dose: 650 mg [facility] Pain/Vitals Document 09/27/17 19:59 MS (Rec: 09/27/17 19:59 MS [id number]) Pain Reassessment Is This A Pain ReAssessment? No Presence of Pain Presence of Pain No Vitals Temperature (97.6 F-99.6 F) 100.9 F Temperature Source Oral Re-Assess: [facility] Pain/Vitals Document 09/27/17 20:59 MS (Rec: 09/27/17 22:49 MS [id number]) Pain Reassessment Is This A Pain ReAssessment? No Presence of Pain Presence of Pain No Vitals Temperature (97.6 F-99.6 F) 100.3 F Temperature Source Oral Albuterol/Ipratropium (Duoneb 3 Mg/0.5 Mg (3 Ml) Ud) 3 ml IH TIDRESP [facility] Last Admin: 09/27/17 21:23 Dose: 3 ml Aspirin (Aspirin Chewable) 81 mg PO DAILY [facility] Carvedilol (Coreg) 25 mg PO BID [facility] Last Admin: 09/27/17 19:46 Dose: Not Given Non-Admin Reason: BP Parameters Not Met [facility] Pulse and Blood Pressure Document 09/27/17 19:46 MS (Rec: 09/27/17 19:48 MS [id number]) Pulse Pulse Rate (60-90) 82 Blood Pressure Blood Pressure (100/60-150/90) 96/62 Fluoxetine HCl (Prozac) 20 mg PO DAILY [facility] Guaifenesin/Dextromethorphan (Robitussin Dm) 5 ml PO Q4H PRN PRN Reason: Cough Meropenem 250 mg/ Sodium (Chloride) 100 mls @ 100 mls/hr IVPB Q12H [facility] PRN Reason: Protocol Stop: 10/06/17 21:16 Last Admin: 09/27/17 23:34 Dose: 100 mls/hr eMAR Start Stop Document 09/27/17 23:34 MS (Rec: 09/27/17 23:34 MS [id number]) Intravenous Solution Start Date 09/27/17 Start Time 23:34 End Date 09/28/17 End time 00:34 Total Infusion Time 60 Sevelamer HCl (Renagel) 800 mg PO TID [facility] Tamsulosin HCl (Flomax) 0.4 mg PO DAILY [facility] Discontinued Medications Sodium Chloride (Sodium Chloride 0.9%) 1,000 mls @ 999 mls/hr IV .Q1H1M STA Stop: 09/27/17 11:04 Last Admin: 09/27/17 10:15 Dose: 999 mls/hr eMAR Start Stop Document 09/27/17 10:15 RG (Rec: 09/27/17 10:57 RG [id number]) Intravenous Solution Start Date 09/27/17 Start Time 10:15 End Date 09/27/17 End time 10:45 Total Infusion Time 30 Vancomycin HCl (Vancomycin 1gm) 1 gm in 250 mls @ 167 mls/hr IVPB STAT STA PRN Reason: Protocol Stop: 09/27/17 22:31 Last Admin: 09/27/17 22:08 Dose: 167 mls/hr eMAR Start Stop Document 09/27/17 22:08 MS (Rec: 09/27/17 22:08 MS [id number]) Intravenous Solution Start Date 09/27/17 Start Time 22:08 End Date 09/27/17 End time 23:38 Total Infusion Time 90 Pneumococcal Polyvalent Vaccine (Pneumovax 23 Vaccine) 0.5 ml IM .ONCE ONE Stop: 09/27/17 17:54 Potassium Chloride (K-Dur 20 Meq Er Tab) 40 meq PO STAT STA Stop: 09/27/17 15:22 Last Admin: 09/27/17 17:10 Dose: Not Given Non-Admin Reason: Patient 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 <Sydni Leon'Cheri - Last Filed: 09/28/17 02:55> Disposition/Present on Arrival - Present on Arrival Any Indicators Present on Arrival: Yes History of DVT/PE: No History of Uncontrolled Diabetes: Yes Urinary Catheter: No History of Decub. Ulcer: No History Surgical Site Infection Following: None - Disposition Have Diagnosis and Disposition been Completed?: Yes Disposition Time: 12:27 Patient Plan: Admission <Tessie Antunez - Last Filed: 09/27/17 23:56> <Lamont Leon - Last Filed: 09/28/17 02:55> - Disposition Diagnosis: Malaise and fatigue, Renal insufficiency Disposition: HOSPITALIZED Patient Problems: Current Active Problems Problem Status Onset Malaise and fatigue Acute Renal insufficiency Acute Condition: STABLE
[2017-09-27] MEDS ORDERED: Sodium Chloride 0.9% 1,000 ML IV STA (10:04)
[2017-09-27 10:38] LABS: BASO # 0.05 K/mm3 (0.0-2.0); BASO % 0.8 % (0.0-3.0); EOS # 0.1 (0.0-0.7); EOS % 1.4 % (1.5-5.0); GRAN # 4.77 (1.4-6.5); GRAN % 74.8 % (50.0-68.0); HEMOGLOBIN 10.5 g/dL (14.0-18.0); LYMPH # 0.9 (1.2-3.4); LYMPH % 14.8 % (22.0-35.0); MEAN CELL VOLUME 101.8 fl (80.0-105.0); MEAN CORPUSCULAR HEMOGLOBIN 31.1 pg (25.0-35.0); MEAN CORPUSCULAR HGB CONC 30.5 g/dl (31.0-37.0); MEAN PLATELET VOLUME 12.5 fl (7.0-11.0); MONO # 0.5 (0.1-0.6); MONO % 8.2 % (1.0-6.0); RBC 3.38 10^6/uL (3.5-6.1); RED CELL DISTRIBUTION WIDTH 19.1 % (11.5-14.5); WHITE BLOOD COUNT 6.4 10^3/ul (4.5-11.0)
[2017-09-27 10:39] LABS: VENOUS BLOOD GAS BASE EXCESS 3.2 mmol/L (0.0-2.0); VENOUS BLOOD GAS PO2 67 mm/Hg (30-55); VENOUS BLOOD PH 7.29 (7.32-7.43)
[2017-09-27 10:55] LABS: ALB/GLOB RATIO 1.1 (1.1-1.8); ALBUMIN 3.1 g/dL (3.0-4.8); CALCIUM 9.8 mg/dL (8.4-10.5)
--- NOTE | 2017-09-27 11:59 | RAD ---
HISTORY: COMPARISON: 09/21/2017 TECHNIQUE: Chest PA and lateral FINDINGS: LINES AND TUBES: None. LUNG AND PLEURA: The lungs are well inflated and clear. Again seen is mild pulmonary venous congestion. No focal consolidation. HEART AND MEDIASTINUM: There is persistent moderate cardiomegaly. The hilar and mediastinal contours are within normal limits. SKELETAL STRUCTURES: The bony structures are within normal limits for the patient's age. VISUALIZED UPPER ABDOMEN: Normal. OTHER FINDINGS: None. IMPRESSION: Moderate cardiomegaly and mild pulmonary venous congestion. No lobar pneumonia.
[2017-09-27 13:00] LABS: MAGNESIUM 2.6 mg/dL (1.7-2.2)
[2017-09-27 14:53] LABS: VENOUS BLOOD GAS PO2 172 mm/Hg (30-55); VENOUS BLOOD PH 7.46 (7.32-7.43)
[2017-09-27] MEDS ORDERED: Potassium Chloride 20 mEq ER Tab PO STA (15:21)
[2017-09-27 17:52] VITALS: BMI 19.6
[2017-09-27] MEDS ORDERED: Influenza Vaccine 60 mcg/0.5 mL SYR (4YR UP) IM ONE (17:53)
[2017-09-27] MEDS ORDERED: Pneumococcal 23-Valent Vaccine IM ONE (17:53)
--- NOTE | 2017-09-27 18:12 | CARD ---
APPROVED REPORT EKG Measurement Heart [id number] <Conclusion> Sinus rhythm with fusion complexes Low voltage QRS Cannot rule out Inferior infarct, age undetermined Abnormal ECG
[2017-09-27] MEDS ORDERED: Vancomycin 1gm in NS 250ml 1 GM/250 ML BAG IVPB STA (21:02)
[2017-09-27] MEDS: Albuterol-Ipratrop 3 mg / 0.5 (3 ml) UD IH SCH (21:23)
--- NOTE | 2017-09-28 05:48 | CON ---
DATE: 09/27/2017 LOCATION: The patient is in room 272, bed 2. CHIEF COMPLAINT: Weakness times several days. HISTORY OF PRESENT ILLNESS: This is a 67-year-old male with diabetes mellitus; chronic renal failure, on hemodialysis; hypertension, hyperlipidemia; anemia; and recently discharged from the hospital. The patient had an amputation of the right great toe postprocedure day #13. He is complaining of fevers, weakness, occasional cough, and mild shortness of breath. No abdominal pain, diarrhea, or constipation. No headaches or blurred vision. PAST MEDICAL HISTORY: Significant for diabetes mellitus; chronic renal failure, on hemodialysis; hypertension; hyperlipidemia; and anemia. PAST SURGICAL HISTORY: Significant for left arm shunt. ALLERGIES: THE PATIENT HAS NO KNOWN ALLERGIES. MEDICATIONS: Include the patient to be on Flomax, Ranexa, fluoxetine, Prozac, Coreg, and aspirin. PHYSICAL EXAMINATION: GENERAL: The patient is in bed, in no acute distress. VITAL SIGNS: Temperature of 100.9, blood pressure of 121/80, respiratory rate of 20, and heart rate of 80. HEENT: Unremarkable. NECK: Supple. LUNGS: Have decreased breath sounds. HEART: Normal S1 and S2. ABDOMEN: Soft and nontender. EXTREMITIES: Amputation site is central necrotic area, dry. No evidence of an active infection. LABORATORY DATA: Reveals the patient's white count is 6.4, hemoglobin of 10, and platelets of 146,000. Chemistries reveals a BUN of 58 and creatinine of 6.8. Troponin is elevated 0.56. C-reactive protein is greater than 15. Serology is noted influenza. The patient's chest x-rays reported negative. ASSESSMENT AND PLAN: This is a 67-year-old male with diabetes mellitus; chronic renal failure, on hemodialysis; hypertension; hyperlipidemia; anemia; status post right great fifth toe amputation postprocedure day #13 with: 1. Fever of 100.9, must rule out healthcare-associated pneumonia. We will give a dose of vancomycin and start meropenem. Order a CAT scan of the chest, blood cultures, and sputum cultures and we will follow closely with you. Jose Miguel Mane MD [facility] # [id number]
[2017-09-28 06:45] LABS: HEMOGLOBIN 11.1 g/dL (14.0-18.0); MEAN CELL VOLUME 102.7 fl (80.0-105.0); MEAN CORPUSCULAR HEMOGLOBIN 30.3 pg (25.0-35.0); MEAN CORPUSCULAR HGB CONC 29.5 g/dl (31.0-37.0); MEAN PLATELET VOLUME 12.9 fl (7.0-11.0); RBC 3.66 10^6/uL (3.5-6.1); RED CELL DISTRIBUTION WIDTH 19.4 % (11.5-14.5)
[2017-09-28] MEDS: Albuterol-Ipratrop 3 mg / 0.5 (3 ml) UD IH SCH ×3 (07:25→21:02)
[2017-09-28 08:02] LABS: ALB/GLOB RATIO 1.1 (1.1-1.8); ALBUMIN 3.3 g/dL (3.0-4.8); CALCIUM 9.6 mg/dL (8.4-10.5); TROPONIN I 0.48 ng/mL
--- NOTE | 2017-09-28 09:38 | CT ---
PROCEDURE: CT Chest without contrast HISTORY: r/o infiltrate COMPARISON: None. TECHNIQUE: Contiguous axial images were obtained through the chest without intravenous contrast enhancement. Sagittal and coronal reconstructions were performed. Radiation dose (DLP): 02/11/2017 mGy-cm. This CT exam was performed using one or more of the following dose reduction techniques: Automated exposure control, adjustment of the mA and/or kV according to patient size, and/or use of iterative reconstruction technique. FINDINGS: LUNGS: No acute consolidation. Numerous small calcified granulomas bilaterally. Multiple small noncalcified pulmonary nodules bilaterally, majority not present on prior examination. Posterior segment right upper lobe, series 3, image 36, 5 mm. Superior segment left lower lobe, image 54, 4 mm and 6 mm nodules immediately abutting one another. Superior segment left lower lobe, image 59, 5 mm nodule. 7 mm partially solid nodule left lower lobe, image 85. Follow-up for this 7 mm partially solid nodule is recommended with noncontrast chest CT 3-6 months, as per Fleischner society criteria. The remaining nodules do not warrant follow-up CT. Scattered areas of subpleural fibrosis predominantly on the right side. Fine nodular pattern in the right lower lobe common nonspecific. . There are several small areas of patchy opacity without guillermo nodularity, seen on series 3, image 47 in the superior segment left lower lobe and on image 49, in the apical posterior segment of the left upper lobe. Nonspecific. MEDIASTINUM: Unremarkable thoracic aorta. No aneurysm. Cardiomegaly. Coronary arterial calcification. No pericardial effusion. Main pulmonary artery unremarkable. No vascular congestion. No lymphadenopathy. PLEURA: Minimal dependent pleural thickening bilaterally. Possible trace pleural effusion. BONES: No fracture. No destructive lesion. UPPER ABDOMEN: Nonspecific ascites. OTHER FINDINGS: None. IMPRESSION: Old granulomatous disease. Multiple small noncalcified pulmonary nodules as described. There is a 7 mm partially solid nodule in the left lower lobe for which followup noncontrast chest CT examination is advised in 3-6 months. Fine nodular interstitial infiltrate in the right lower lobe. Scattered areas of subpleural fibrosis on the right side. Cardiomegaly and coronary arterial calcification. Possible trace bilateral pleural effusion. Ascites.
--- NOTE | 2017-09-28 12:47 | PN ---
DATE: 09/28/2017 SUBJECTIVE: This is a 67-year-old male, diabetic, end-stage renal disease with severe peripheral vascular disease. The patient is on hemodialysis. The patient had an amputation of he hallux approximately 10 days ago on his right foot. At that time, he had intervention with Dr. Gonzalez prior to the surgery and unfortunately he did not have any blood coming into the foot. We did go ahead and try to the distal partial amputation of the toe. During the surgery, the patient had minimal blood flow. The only blood flow that we got from that foot was actually when we took the clot withdrew of the proximal phalanx. We did get some bleeding from the bone. He was then placed in Transitional Care, where he received electrical stim for wound healing and it did tend to help bring back some of the ischemic changes on the foot. The surgical site did, however, become a gangrenous cap, but the gangrene has limited itself just to the surgical sutured area. He is seen at bedside. He states that he has been very weak and he has fallen twice at home. He states he cannot stand on his foot. The patient with the dressing clean, dry, and intact to the foot. His vital signs were reviewed. His temperature was 98.6 and his pulse was 84. MEDICATIONS: Noted on the OCT. He is not on any antibiotics at the present time. LABORATORY DATA: The patient's labs were reviewed. His white blood cell count is 7, his H and H is 11.1 and 37.6, and the platelets are 159. His chemistry shows a BUN and creatinine of 36 and 5 and his glucose was 170. Troponins were 0.48 and 0.56 upon admission. The patient's foot is relatively unchanged at the surgical site. There is still a necrotic cap, but there is no cellulitis around the foot. However, the patient has bruised the second toe and there are pre-gangrenous changes now on the second toe of this foot. ASSESSMENT: Severe peripheral vascular disease. PLAN OF TREATMENT: Once the patient is off monitoring, we can start the electrical stim again. Prognosis is extremely poor for limb salvage. He does not have any other vascular reports. I did speak with Dr. Gonzalez prior to the previous surgery and it was basically to try and save the limb. If this does not heal, he will need a below knee amputation. The patient also will need some subacute rehab, if he is not able to stand and he is falling. Wound care orders for the patient include Betadine and dry sterile dressing. He does need to get his Multi Podus boots, hopefully his can them bring. We just had dispensed the pair to him last week during his last visit and we will order some Emolium creams. Caroline Smith DPM
[2017-09-28] MEDS ORDERED: Albuterol-Ipratrop 3 mg / 0.5 (3 ml) UD IH PRN (13:01)
[2017-09-28] MEDS: Hydrocerin(120 gm) TOP SCH (13:21)
--- NOTE | 2017-09-28 16:31 | CP.PCM.PN ---
Subjective - Date & Time of Evaluation Date of Evaluation: 09/28/17 Time of Evaluation: 10:55 - Subjective Subjective: Still with cough, no fevers overnight, not in distress. Objective - Vital Signs/Intake and Output Vital Signs (last 24 hours): Temp Pulse Resp BP Pulse Ox 98.6 F 84 20 111/85 98 09/28/17 06:00 09/28/17 06:00 09/28/17 06:00 09/28/17 06:00 09/28/17 06:00 Intake and Output: 09/27/17 09/28/17 18:59 06:59 Intake Total 470 Output Total 0 Balance 470 - Medications Medications: Current Medications Acetaminophen (Tylenol 325mg Tab) 650 mg PO Q4H PRN PRN Reason: Fever >100.4 F Last Admin: 09/27/17 19:59 Dose: 650 mg Albuterol/Ipratropium (Duoneb 3 Mg/0.5 Mg (3 Ml) Ud) 3 ml IH TIDRESP [facility] Last Admin: 09/27/17 21:23 Dose: 3 ml Aspirin (Aspirin Chewable) 81 mg PO DAILY [facility] Carvedilol (Coreg) 25 mg PO BID [facility] Last Admin: 09/27/17 19:46 Dose: Not Given Fluoxetine HCl (Prozac) 20 mg PO DAILY [facility] Guaifenesin/Dextromethorphan (Robitussin Dm) 5 ml PO Q4H PRN PRN Reason: Cough Meropenem 250 mg/ Sodium (Chloride) 100 mls @ 100 mls/hr IVPB Q12H [facility] PRN Reason: Protocol Stop: 10/06/17 21:16 Last Admin: 09/27/17 23:34 Dose: 100 mls/hr Sevelamer HCl (Renagel) 800 mg PO TID [facility] Tamsulosin HCl (Flomax) 0.4 mg PO DAILY [facility] - Constitutional Appears: Chronically Ill - Head Exam Head Exam: NORMAL INSPECTION - ENT Exam ENT Exam: Mucous Membranes Moist - Neck Exam Neck Exam: absent: Meningismus - Respiratory Exam Respiratory Exam: Decreased Breath Sounds - Cardiovascular Exam Cardiovascular Exam: +S1, +S2 - GI/Abdominal Exam GI & Abdominal Exam: Soft. 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
[2017-09-28] MEDS: Insulin Reg-MEDIUM-Coverage SC SCH (22:14)
--- NOTE | 2017-09-29 02:46 | CON ---
CONSULT SERVICE: Cardiology. CONSULTING PHYSICIAN: Katharina Tejeda MD REASON FOR CONSULTATION AND FOLLOWUP: History of coronary artery disease; peripheral arterial disease; admitted with weakness for several days; history of end-stage renal disease, on dialysis. BRIEF CLINICAL HISTORY: A 67-year-old male with past medical history significant for coronary artery disease; end-stage renal disease, on dialysis; peripheral arterial disease; history of PTCA of right SFA and left SFA, atherectomy with drug-coated balloon on 08/04/2017 and 07/13/2017. Subsequently, the patient was admitted with gangrene of the toe, status post PTCA of the LAD by Dr. Gonzalez who is due for dialysis today, but felt very weak and so decided to come to the ER. PAST MEDICAL HISTORY: Significant for coronary artery disease, status post PTCA of the LAD with a drug-eluting stent on 08/20/2014 and staged angioplasty of the circumflex OM1 on 08/22/2014. Last catheterization on 02/27/2017, abnormal stress test. Cardiac catheterization revealed a patent stent to left anterior descending and circumflex stent patent, nondominant RCA diffusely diseased. CURRENT MEDICATIONS: The patient is on clonazepam, , Flomax, Renagel, Ranexa and carvedilol. REVIEW OF SYSTEMS: As per HPI. PHYSICAL EXAMINATION: As follows: VITAL SIGNS: Temperature afebrile, heart rate 78, blood pressure 130/80. HEENT: PERRLA. Extraocular muscles intact. NECK: Supple. No carotid bruit or thyromegaly. CHEST: Clear to auscultation. HEART: S1 and S2 regular. ABDOMEN: Soft. EXTREMITIES: Clubbing and cyanosis negative. LABORATORY DATA: Blood workup as follows: WBC 7, hemoglobin 11, hematocrit 37.6, platelet count 159. Chemistries show sodium 140, potassium 3.0, chloride 99, bicarbonate 31, anion gap of 17, BUN 36, creatinine 5.0. Troponin 0.48. IMPRESSION: Generalized weakness, borderline troponin positive secondary to possibly end-stage renal disease. History of recently MUGA scan on 09/01/2015, ejection 57%, significantly improved from before. Repeat echo on 10/28/2016, ejection fraction 35%, four-chamber dilatation. Last stress test on 10/28/2016 showed abnormal nonreversible ischemia, no perfusion defect. Last catheterization on 03/26/2015, medical treatment recommended, patent stent to left anterior descending, patent circumflex, status post percutaneous transluminal coronary angioplasty with drug-coated balloon in right superficial femoral artery on 07/13/2017, and left superficial femoral artery on 08/05/2017. Most recently percutaneous transluminal coronary angioplasty of anterior tibial by Dr. Gonzalez before removal of the toe. RECOMMENDATION: Resume medications. We will follow up serial CPK, troponin, lipid profile, TSH, hemoglobin A1c. Emphasized on lifestyle modification, risk factors of coronary artery disease. Medical treatment recommended. If the troponin trends up, consider cardia catheterization; otherwise, treat medically. Katharina Tejeda MD [facility] # [id number]
--- NOTE | 2017-09-29 03:33 | HP ---
HISTORY OF PRESENT ILLNESS: This is a 67-year-old male who is coming into the hospital because of feeling weakness for the past week. He had gone to dialysis yesterday and was not feeling well. He states he has been falling, he has been feeling fatigued, he has not been able to eat well, so he came for further evaluation. The patient had right toe amputation done and did recover but not fully. He was advised to go to subacute rehab but instead decided to go home. He was placed in Transitional Care Unit for rehabilitation and management of his wound. The patient has no complaints of any headaches or dizziness. No nausea, no vomiting. He has no abdominal pain. No back pain. He states he has been coughing, congested. He has been about two weeks since his amputation. His medications have been reviewed on the MRF. REVIEW OF SYSTEMS: All other review of symptoms are within normal limits except what is mentioned. PAST MEDICAL HISTORY: 1. End-stage renal disease on hemodialysis. 2. Peripheral arterial disease. 3. Diabetes type 2. 4. Chronic anemia. 5. Secondary hypoparathyroidism. 6. Gait dysfunction. 7. Frailty. SOCIAL HISTORY: He does not smoke, drink, or use drugs. ALLERGIES: NO KNOWN DRUG ALLERGIES. MEDICATIONS: MRF has been reviewed. FAMILY HISTORY: Noncontributory. PHYSICAL EXAMINATION: VITAL SIGNS: His temperature is 97.1, his blood pressure 104/74, respirations 18, O2 saturation 98%. GENERAL: The patient lying in bed, uncomfortable, and in no acute distress. HEENT: Atraumatic and normocephalic. Anicteric sclerae. Moist mucosa. [place] conjunctivae. No oral lesions. NECK: No JVD, anterior and posterior adenopathy, thyromegaly, or bruits. CARDIOVASCULAR: S1 and S2 regular. No murmur, rubs, or gallop. LUNGS: He has mild rhonchi, no rales or wheezing, good bilateral air entry. ABDOMEN: Bowel sounds are positive. Soft, nontender and nondistended. No hepatosplenomegaly. No rebound and no guarding EXTREMITIES: No cyanosis, clubbing, or edema. In the right first toe, he has a wound that is clean, no discharge. NEUROLOGIC: No facial asymmetry. Tongue is midline. No uvula deviation. Power is 5/5 upper extremity and lower extremity. Sensation intact in upper extremity and lower extremity. PSYCHIATRIC: He is awake, alert and oriented x3. No anxiety or depression. He has normal affect. GENITOURINARY: No CVA tenderness. VASCULAR: 2+ pulses in the carotid pulses and pedal pulses. SKIN: No erythema or nodules SPINE: Shows normal curvature. LABORATORY DATA: White count is 6.4, hemoglobin 10.5, platelet count is 146. ABG done, ABG shows a pH of 7.29 with a pCO2 of 66, paO2 of 67. Chemistry shows troponin of 0.48, he had a potassium of 3.7. His serology shows influenza A and B is negative. His EKG showed a heart rate of 73, sinus rhythm with low QRS. Chest CT done shows old granulomatous disease, multiple small noncalcified pulmonary nodules, 7 mm possibly solid nodule in the left lower lobe which will need followup. There are scattered areas of subpleural fibrosis on the right side. ASSESSMENT: 1. Healthcare associated pneumonia. 2. Peripheral arterial disease. 3. End-stage renal disease on hemodialysis. 4. Diabetes type 2. 5. . 6. Dyslipidemia. 7. Left arteriovenous fistula. 8. Secondary hypoparathyroidism. 9. Right anterior vertebral artery angioplasty with stent. 10. History of first toe osteomyelitis. 11. Frailty. 12. Gait dysfunction. 13. Fall. PLAN: The patient is going to be admitted to the hospital. He is on aspirin for his peripheral arterial disease and also his elevated troponin on labs. I will get Dr. Tejeda to evaluate the patient. Clinically has a pneumonia; I will have Dr. Mane to evaluate the patient. The patient is going to be on Flomax for his BPH. He is receiving Prozac for his depression. He is on Renagel for his secondary hypoparathyroidism. The patient is on Tylenol. He is going to be on Ecotrin He is going to be placed on a regular diet because of his poor p.o. intake. Maurice Agarwal MD
[2017-09-29] MEDS: Insulin Reg-MEDIUM-Coverage SC SCH ×4 (07:30→21:20)
[2017-09-29 07:43] LABS: HDL CHOLESTEROL 22 mg/dL (29-60)
[2017-09-29 07:54] LABS: LDL CHOLESTEROL 69 mg/dL (0-129)
[2017-09-29 07:57] LABS: TROPONIN I 0.38 ng/mL
[2017-09-29] MEDS: Albuterol-Ipratrop 3 mg / 0.5 (3 ml) UD IH SCH ×3 (08:11→20:58)
[2017-09-29 08:12] LABS: ALBUMIN 3.6 g/dL (3.0-4.8); CALCIUM 9.7 mg/dL (8.4-10.5); MAGNESIUM 2.1 mg/dL (1.7-2.2)
[2017-09-29 08:13] LABS: ALB/GLOB RATIO 1.1 (1.1-1.8)
[2017-09-29] MEDS ORDERED: Doxercalciferol 4 mcg/2 ml Inj IVP ONE (08:28)
[2017-09-29] MEDS ORDERED: Prostat 15 g packet PO ONE (08:29)
[2017-09-29 08:34] LABS: BASO # 0.04 K/mm3 (0.0-2.0); BASO % 1.5 % (0.0-3.0); EOS % 0.7 % (1.5-5.0); GRAN # 1.71 (1.4-6.5); GRAN % 63.4 % (50.0-68.0); HEMOGLOBIN 10.7 g/dL (14.0-18.0); LYMPH # 0.8 (1.2-3.4); LYMPH % 28.5 % (22.0-35.0); MEAN CELL VOLUME 99.1 fl (80.0-105.0); MEAN CORPUSCULAR HEMOGLOBIN 30.9 pg (25.0-35.0); MEAN CORPUSCULAR HGB CONC 31.2 g/dl (31.0-37.0); MEAN PLATELET VOLUME 12.6 fl (7.0-11.0); MONO # 0.2 (0.1-0.6); MONO % 5.9 % (1.0-6.0); RBC 3.46 10^6/uL (3.5-6.1); RED CELL DISTRIBUTION WIDTH 18.8 % (11.5-14.5)
[2017-09-29 08:39] LABS: WHITE BLOOD COUNT 2.7 10^3/ul (4.5-11.0)
[2017-09-29] MEDS ORDERED: Vancomycin 500mg in NS 500 MG/100 ML BAG IVPB STA (09:05)
[2017-09-29] MEDS: Oxycodone/Acetaminophen 5/325 mg Tab PO PRN ×2 (12:01→18:08)
[2017-09-29] MEDS: guaiFENesin DM 100 mg-10 mg/5 ml UD PO PRN ×2 (12:01→18:07)
--- NOTE | 2017-09-29 12:30 | PN ---
DATE: 09/29/2017 SUBJECTIVE: The patient has no complaints of any chest pain. No shortness of breath, no headaches. PHYSICAL EXAMINATION: VITAL SIGNS: Temperature is 98.2, pulse is 63, blood pressure is 98/62, respirations is . GENERAL: The patient is lying in bed, flat, comfortable. HEENT: No oral lesion. Anicteric sclerae. Moist mucosa. NECK: No JVD, adenopathy, or thyromegaly. CARDIOVASCULAR: S1 and S2, regular. No murmurs, rubs, or gallops. LUNGS: Clear to auscultation bilaterally. No wheeze, rales, or rhonchi. ABDOMEN: Bowel sounds are positive. Soft, nontender and nondistended. EXTREMITIES: No cyanosis, clubbing, or edema. ASSESSMENT: 1. Healthcare-associated pneumonia. 2. End-stage renal disease, on hemodialysis. 3. Peripheral arterial disease. 4. Diabetes type 2. 5. Dyslipidemia. 6. Left arteriovenous fistula. 7. Secondary hypoparathyroidism. 8. Right anterior femoral artery angioplasty with stent. 9. History of right first toe osteomyelitis. 10. Frailty. 11. Gait dysfunction. 12. Fall. PLAN: The patient is currently on aspirin. He is going to continue on Coreg. He is on nebulizer treatments. . He is on Flomax for his BPH. He is on meropenem for antibiotics. Urine and blood cultures are pending. He is on Renagel for his secondary hyperparathyroidism. He will most likely need subacute rehab and we will change his diet to a renal diet. speak with a social work nurse regarding going to a subacute rehab as the patient is agreeable. Maurice Agarwal MD
--- NOTE | 2017-09-29 12:44 | CP.PCM.PN ---
Subjective - Date & Time of Evaluation Date of Evaluation: 09/29/17 Time of Evaluation: 11:10 - Subjective Subjective: Patient is breathing a little better today, no fevers, not in distress. Objective - Vital Signs/Intake and Output Vital Signs (last 24 hours): Temp Pulse Resp BP Pulse Ox 98.2 F 63 20 98/62 L 100 09/29/17 05:33 09/29/17 05:33 09/29/17 05:33 09/29/17 05:33 09/29/17 05:33 Intake and Output: 09/29/17 09/29/17 06:59 18:59 Intake Total 300 Balance 300 - Medications Medications: Current Medications Acetaminophen (Tylenol 325mg Tab) 650 mg PO Q4H PRN PRN Reason: Fever >100.4 F Last Admin: 09/27/17 19:59 Dose: 650 mg Albuterol/Ipratropium (Duoneb 3 Mg/0.5 Mg (3 Ml) Ud) 3 ml IH TIDRESP [facility] Last Admin: 09/29/17 08:11 Dose: Not Given Albuterol/Ipratropium (Duoneb 3 Mg/0.5 Mg (3 Ml) Ud) 3 ml IH Q2H PRN PRN Reason: Shortness of Breath Aspirin (Aspirin Chewable) 81 mg PO DAILY [facility] Last Admin: 09/28/17 09:12 Dose: 81 mg Carvedilol (Coreg) 25 mg PO BID [facility] Last Admin: 09/28/17 17:36 Dose: 25 mg Fluoxetine HCl (Prozac) 20 mg PO DAILY [facility] Last Admin: 09/28/17 09:12 Dose: 20 mg Guaifenesin/Dextromethorphan (Robitussin Dm) 5 ml PO Q4H PRN PRN Reason: Cough Meropenem 250 mg/ Sodium (Chloride) 100 mls @ 100 mls/hr IVPB Q12H CURLY PRN Reason: Protocol Stop: 10/06/17 21:16 Last Admin: 09/28/17 22:07 Dose: 100 mls/hr Vancomycin HCl (Vancomycin 500mg In Ns) 500 mg in 100 mls @ 200 mls/hr IVPB MWF STA PRN Reason: Protocol Stop: 09/29/17 09:34 Insulin Human Regular (Humulin R Med) 0 units SC ACHS CURLY PRN Reason: Protocol Last Admin: 09/29/17 07:30 Dose: Not Given Multi-Ingredient Cream (Hydrocerin Cream) 0 ea TOP DAILY [facility] Last Admin: 09/28/17 13:21 Dose: 2 applic Sevelamer HCl (Renagel) 800 mg PO TID [facility] Last Admin: 09/28/17 17:36 Dose: 800 mg Tamsulosin HCl (Flomax) 0.4 mg PO DAILY [facility] Last Admin: 09/28/17 09:12 Dose: 0.4 mg - Labs Labs: 09/29/17 07:30 09/29/17 07:16 - Constitutional Appears: Chronically Ill - Head Exam Head Exam: NORMAL INSPECTION - ENT Exam ENT Exam: Mucous Membranes Moist - Neck Exam Neck Exam: absent: Meningismus - Respiratory Exam Respiratory Exam: Decreased Breath Sounds - Cardiovascular Exam Cardiovascular Exam: +S1, +S2 - GI/Abdominal Exam GI & Abdominal Exam: Soft. absent: Tenderness - Extremities Exam Additional comments: right foot with dressings in place Assessment and Plan - Assessment and Plan (Free Text) Plan: Assessment SIRS, consider sepsis from HCAP, growing gram negative bacilli in the sputum right hallux distal phalanx osteomyelitis and gangrene S/P amputation POD #15; resection margins still show necrosis and osteomyelitis ESRD on HD with left arm AV shunt DM HTN dyslipidemia Plan continue intermittent IV Vanco and will continue Merrem day 3 pending final sputum culture results will need to complete 4 weeks of IV Vanco for the osteomyelitis (day 15 today) will continue to monitor clinically
--- NOTE | 2017-09-29 18:54 | PN ---
DATE: 09/29/2017 CONSULTING PHYSICIAN: Katharina Tejeda MD. REASON FOR CONSULTATION: History of coronary artery disease; peripheral arterial disease, admitted with generalized weakness; end-stage renal disease, on dialysis; rule out pneumonia. SUBJECTIVE: The patient denies any chest pain, shortness of breath or any palpitations. OBJECTIVE: GENERAL: Not in apparent distress, going for the dialysis. VITAL SIGNS: As follows: Temperature afebrile, heart rate 66, blood pressure 105/67. HEENT: PERRLA. Extraocular muscles intact. NECK: Supple. No carotid bruits or thyromegaly. CHEST: Clear to auscultation. HEART: S1 and S2, regular. ABDOMEN: Soft. EXTREMITIES: Clubbing and cyanosis negative. LABORATORY DATA: Blood workup as follows: WBC 2.3, hemoglobin , hematocrit 34.3, platelet count 139. Chemistries show sodium 140, potassium 3.7, chloride 98, carbon dioxide 28, anion gap of 18, BUN 26, creatinine 3.4. IMPRESSION: Rule out early pneumonia, diabetes, hypertension, hyperlipidemia, coronary artery disease, status post stent, status post percutaneous transluminal coronary angioplasty, peripheral arterial disease, status post percutaneous transluminal coronary angioplasty of left superficial femoral artery with drug coated balloon in June 2016 and then percutaneous transluminal coronary angioplasty with drug coated balloon of right superficial femoral artery in July, history of recent anterior tibial percutaneous transluminal coronary angioplasty by Dr. Gonzalez, status post amputation of the right toe, failure to thrive, community-acquired pneumonia, frailty, gait disturbance, frequent fall. RECOMMENDATIONS: Continue Coreg, continue aspirin. Plavix was stopped because of amputation, we will resume back and PAD and CAD and then 300 mg loaded now and then we will give 75 mg daily from tomorrow, possibly the Plavix will be stopped because of amputation and then never restart it. Discharge planning to subacute rehab facility. Katharina Tejeda MD
[2017-09-29] MEDS: Bacitracin 500 Units/gm Oint Foilpak UD TOP SCH (19:03)
[2017-09-30] MEDS: Oxycodone/Acetaminophen 5/325 mg Tab PO PRN ×3 (01:00→19:47)
[2017-09-30] MEDS: Albuterol-Ipratrop 3 mg / 0.5 (3 ml) UD IH SCH ×3 (07:53→21:40)
--- NOTE | 2017-09-30 08:21 | CP.PCM.PN ---
<[place] - Last Filed: 09/30/17 08:25> Subjective - Date & Time of Evaluation Date of Evaluation: 09/30/17 Time of Evaluation: 08:20 - Subjective Subjective: 67 y/o male seen at bedside with attending Dr. Vargas regarding right hallux amputation site. Pt is having pain at this time, throughout his right leg and into his foot. Pt says the pain comes and goes and is the same it has been for weeks. Denies any new pedal complaints. Denies F/C/N/V/CP/SOB Objective - Vital Signs/Intake and Output Vital Signs (last 24 hours): Temp Pulse Resp BP Pulse Ox 97.5 F L 74 18 120/71 98 09/30/17 05:46 09/30/17 05:46 09/30/17 05:46 09/30/17 05:46 09/30/17 05:46 Intake and Output: 09/30/17 09/30/17 06:59 18:59 Intake Total 340 Output Total 0 Balance 340 - Medications Medications: Current Medications Acetaminophen (Tylenol 325mg Tab) 650 mg PO Q4H PRN PRN Reason: Fever >100.4 F Last Admin: 09/27/17 19:59 Dose: 650 mg Albuterol/Ipratropium (Duoneb 3 Mg/0.5 Mg (3 Ml) Ud) 3 ml IH TIDRESP [facility] Last Admin: 09/30/17 07:53 Dose: 3 ml Albuterol/Ipratropium (Duoneb 3 Mg/0.5 Mg (3 Ml) Ud) 3 ml IH Q2H PRN PRN Reason: Shortness of Breath Aspirin (Aspirin Chewable) 81 mg PO DAILY [facility] Last Admin: 09/29/17 10:25 Dose: 81 mg Bacitracin (Bacitracin) 1 ea TOP BID [facility] Last Admin: 09/29/17 19:03 Dose: 1 ea Carvedilol (Coreg) 25 mg PO BID [facility] Last Admin: 09/29/17 17:51 Dose: Not Given Clopidogrel Bisulfate (Plavix) 75 mg PO DAILY [facility] Fluoxetine HCl (Prozac) 20 mg PO DAILY [facility] Last Admin: 09/29/17 10:25 Dose: 20 mg Guaifenesin/Dextromethorphan (Robitussin Dm) 5 ml PO Q4H PRN PRN Reason: Cough Last Admin: 09/29/17 18:07 Dose: 5 ml Meropenem 250 mg/ Sodium (Chloride) 100 mls @ 100 mls/hr IVPB Q12H CURLY PRN Reason: Protocol Stop: 10/06/17 21:16 Last Admin: 09/29/17 21:36 Dose: 100 mls/hr Insulin Human Regular (Humulin R Med) 0 units SC ACHS [facility] PRN Reason: Protocol Last Admin: 09/29/17 21:20 Dose: Not Given Multi-Ingredient Cream (Hydrocerin Cream) 0 ea TOP DAILY [facility] Last Admin: 09/28/17 13:21 Dose: 2 applic Oxycodone/Acetaminophen (Percocet 5/325 Mg Tab) 1 tab PO Q6H PRN PRN Reason: Pain, moderate (4-7) Stop: 10/02/17 11:50 Last Admin: 09/30/17 01:00 Dose: 1 tab Sevelamer HCl (Renagel) 800 mg PO TID [facility] Last Admin: 09/29/17 18:07 Dose: 800 mg Tamsulosin HCl (Flomax) 0.4 mg PO DAILY [facility] Last Admin: 09/29/17 10:25 Dose: 0.4 mg - Labs Labs: 09/29/17 07:30 09/29/17 07:16 - Constitutional Appears: Well, Non-toxic, No Acute Distress - Extremities Exam Additional comments: Lower extremity focused exam: Vasc: Right DP faintly palpable 1/4, PT non-palpable. Left DP weakly palpable, PT pulse non-palpable. Temperature gradient is warm to cold proximal to distal, R worse than L. CFT delayed but present to digits. No pedal edema noted at this time Ortho: No tenderness on palpation of right hallux amputation site. Moderate tenderness on palpation of right leg and ankle. Neuro: Epicritic and protective sensation grossly diminished B/L Derm: Surgical incision site noted to right hallux. Ischemic darkening changes noted to entirety of incision site. No dehiscence is noted at this time. Skin edges appear well coapted. No drainage, malodor, purulence, or fluctuance is noted to hallux amp site. No other clinical signs of infection. Otherwise, no open lesions, wounds, maceration, xerosis, abnormal pigmentation or abnormal growths noted B/L - Neurological Exam Neurological Exam: Alert, Awake, Oriented x3 - Psychiatric Exam Psychiatric exam: Normal Affect, Normal Mood Assessment and Plan - Assessment and Plan (Free Text) Assessment: 67 year old male 16 days s/p right partial hallux amputation secondary to ischemia and PVD Plan: Patient examined and evaluated at bedside with attending, Dr. Vargas Labs and vitals reviewed; afebrile, WBC 2.7 Continue pain management per primary team Continue IV abx per ID Surgical site cleansed with sterile saline Dressing applied to surgical site with betadine and DSD Discussed with patient the possibility that this wound may not heal and may require more proximal amputation Podiatry will continue to monitor closely; no further surgical intervention at present but may be necessary in future Pt demonstrated verbal understanding Patient to f/u in wound care center with Dr. Smith/Alicia on a weekly basic ( , Mon or ) upon discharge <Dylon Vargas - Last Filed: 09/30/17 15:21> Objective - Vital Signs/Intake and Output Vital Signs (last 24 hours): Temp Pulse Resp BP Pulse Ox 97.2 F L 68 20 103/75 98 09/30/17 11:59 09/30/17 11:59 09/30/17 11:59 09/30/17 11:59 09/30/17 05:46 Intake and Output: 09/30/17 09/30/17 06:59 18:59 Intake Total 340 Output Total 0 Balance 340 - Medications Medications: Current Medications Acetaminophen (Tylenol 325mg Tab) 650 mg PO Q4H PRN PRN Reason: Fever >100.4 F Last Admin: 09/27/17 19:59 Dose: 650 mg Albuterol/Ipratropium (Duoneb 3 Mg/0.5 Mg (3 Ml) Ud) 3 ml IH TIDRESP [facility] Last Admin: 09/30/17 13:33 Dose: 3 ml Albuterol/Ipratropium (Duoneb 3 Mg/0.5 Mg (3 Ml) Ud) 3 ml IH Q2H PRN PRN Reason: Shortness of Breath Aspirin (Aspirin Chewable) 81 mg PO DAILY [facility] Last Admin: 09/30/17 10:57 Dose: 81 mg Bacitracin (Bacitracin) 1 ea TOP BID [facility] Last Admin: 09/30/17 10:57 Dose: 1 ea Carvedilol (Coreg) 25 mg PO BID [facility] Last Admin: 09/30/17 11:00 Dose: Not Given Clopidogrel Bisulfate (Plavix) 75 mg PO DAILY [facility] Last Admin: 09/30/17 10:57 Dose: 75 mg Fluoxetine HCl (Prozac) 20 mg PO DAILY [facility] Last Admin: 09/30/17 10:57 Dose: 20 mg Guaifenesin/Dextromethorphan (Robitussin Dm) 5 ml PO Q4H PRN PRN Reason: Cough Last Admin: 09/29/17 18:07 Dose: 5 ml Meropenem 250 mg/ Sodium (Chloride) 100 mls @ 100 mls/hr IVPB Q12H CURLY PRN Reason: Protocol Stop: 10/06/17 21:16 Last Admin: 09/30/17 08:55 Dose: 100 mls/hr Insulin Human Regular (Humulin R Med) 0 units SC ACHS [facility] PRN Reason: Protocol Last Admin: 09/30/17 12:02 Dose: Not Given Multi-Ingredient Cream (Hydrocerin Cream) 0 ea TOP DAILY [facility] Last Admin: 09/30/17 11:32 Dose: 1 applic Ondansetron HCl (Zofran Inj) 4 mg IVP Q6H PRN PRN Reason: Nausea/Vomiting Oxycodone/Acetaminophen (Percocet 5/325 Mg Tab) 1 tab PO Q6H PRN PRN Reason: Pain, moderate (4-7) Stop: 10/02/17 11:50 Last Admin: 09/30/17 10:58 Dose: 1 tab Sevelamer HCl (Renagel) 800 mg PO WM [facility] Last Admin: 09/30/17 12:09 Dose: 800 mg Tamsulosin HCl (Flomax) 0.4 mg PO DAILY [facility] Last Admin: 09/30/17 10:56 Dose: 0.4 mg - Labs Labs: 09/29/17 07:30 09/29/17 07:16 Attending/Attestation - Attestation I have personally seen and examined this patient.: Yes I have fully participated in the care of the patient.: Yes I have reviewed all pertinent clinical information, including history, physical exam and plan: Yes
[2017-09-30] MEDS: Insulin Reg-MEDIUM-Coverage SC SCH ×4 (08:31→22:20)
[2017-09-30] MEDS: Bacitracin 500 Units/gm Oint Foilpak UD TOP SCH ×2 (10:57→18:25)
[2017-09-30] MEDS: Hydrocerin(120 gm) TOP SCH (11:32)
--- NOTE | 2017-09-30 12:47 | PN ---
DATE: REASON FOR CONSULTATION AND FOLLOWUP: History of coronary artery disease, peripheral arterial disease, generalized weakness, end-stage renal disease - on dialysis, rule out pneumonia. SUBJECTIVE: The patient denies any chest pain, feeling weak. OBJECTIVE GENERAL: Not in apparent distress. VITAL SIGNS: As follows: Temperature afebrile, heart rate 74 and blood pressure 120/71. HEENT: PERRLA. Extraocular muscles are intact. NECK: Supple. No carotid bruits or thyromegaly. CHEST: Clear to auscultation. HEART: S1, S2 regular. ABDOMEN: Soft. EXTREMITIES: Clubbing and cyanosis negative. LABORATORY DATA: Blood workup as follows: WBC 2.3, hemoglobin 10.3, hematocrit 34.3, and platelet count 139,000. Chemistry shows sodium 140, potassium 3.6, chloride 98, carbon dioxide 28, anion gap of 18, BUN 36, and creatinine 3.4. IMPRESSION: End-stage renal disease - on dialysis, peripheral arterial disease - status post percutaneous transluminal coronary angioplasty of left superficial femoral artery in 06/2016, status post percutaneous transluminal coronary angioplasty of right superficial femoral artery with drug coated balloon and atherectomy in July, coronary artery disease - status post multiple stents, diabetes, hypertension, hyperlipidemia, peripheral arterial disease - status post recent peripheral intervention by Dr. Gonzalez, status post amputation of the toe. RECOMMENDATION: Discussed with the . Continue aggressive medical treatment. Rehabilitation therapy. Continue aspirin and carvedilol. Continue Plavix. Continue broad-spectrum antibiotic. Discontinue telemetry. Thank you Dr. Osorio for this opportunity in taking care of the patient, Mr. Amos. We will follow with you. Katharina Tejeda MD
--- NOTE | 2017-09-30 23:56 | PN ---
DATE: 09/30/2017 SUBJECTIVE: He is complaining of back pain. He has bedsore. No shortness of breath. No headaches. He is complaining of dizziness. He got dialyzed yesterday. He has end-stage renal disease, on hemodialysis. He has community-acquired pneumonia, recovering from that. He also had nausea, vomited once in the morning. REVIEW OF SYSTEMS: As per HPI. Rest of 12-point review of systems is reviewed and negative. PHYSICAL EXAMINATION: GENERAL: Comfortable in bed, in no acute distress. VITAL SIGNS: Temperature 98.7, heart rate 60 per minute, blood pressure 98/62, respiratory rate 18 per minute. HEENT: Pallor positive. NECK: No lymphadenopathy. CHEST: Air entry present equal and bilateral. No added sounds. CARDIOVASCULAR: S1 and S2 normal. No murmur and no gallop. ABDOMEN: Soft, nontender. No hepatosplenomegaly. EXTREMITIES: No edema. BACK: Bedsores present. LABORATORY DATA: White count 2.7, hemoglobin 10.7, hematocrit 34.3, and platelet count 139. Glucose 226. MEDICATIONS: Tylenol 650 q.4h. p.r.n., DuoNeb, aspirin 81 mg daily, bacitracin topical, Coreg 25 mg p.o. b.i.d., Plavix 75 mg daily, Prozac 20 mg daily, levofloxacin 250 mg daily, Renagel 800 mg, and Flomax 0.4 mg daily. ASSESSMENT: 1. Healthcare-associated pneumonia. 2. Endstage renal disease, on hemodialysis. 3. Nausea and vomiting. 4. Leukopenia. 5. Anemia. 6. History of osteomyelitis. PLAN: He is currently on aspirin, currently on bronchodilators. We will continue that. Cardiac meds to continue; Coreg, aspirin, and Plavix. He is on fluoxetine. Antibiotic, Levaquin 250 mg daily. Zofran 4 mg q.6h. p.r.n. for nausea, ordered to give one dose stat, 4 mg IV. Flomax 0.4 mg daily. He is awaiting subacute rehab placement. Poonam Oakley MD [facility] # [id number] MTDD
[2017-10-01] MEDS: Oxycodone/Acetaminophen 5/325 mg Tab PO PRN ×3 (01:30→22:17)
--- NOTE | 2017-10-01 06:18 | PN ---
DATE: 09/30/2017 SUBJECTIVE: The patient is in bed, in no acute distress, nontoxic. PHYSICAL EXAMINATION VITAL SIGNS: Temperature is 98, blood pressure is 100/70, respiratory rate of 16. HEENT: Unremarkable. NECK: Supple. LUNGS: Decreased breath sounds. HEART: Normal S1 and S2. ABDOMEN: Soft. LABORATORY EXAMINATION: Reveals a white count of 2.7, hemoglobin of 10, platelets of 139. Chemistries reveal a BUN of 26, creatinine of 3.4. Influenza is negative. Microbiology reveals the sputum has Klebsiella pneumoniae species, the sensitivity is pansensitive. The patient had a CAT scan of the chest, which revealed old granulomatous disease, multiple noncalcified pulmonary nodules, there is solid nodule, fine nodule and infiltrate in the right lower lobe. ASSESSMENT AND PLAN: A 67-year-old male seen earlier today in room 272, bed 2 and has sepsis with Klebsiella healthcare-associated pneumonia, which is pansensitive right hallux distal phalanx osteomyelitis, status post amputation, post day #16, the resection margin still shows necrosis and osteomyelitis and end-stage renal disease on hemodialysis; on intermittent vancomycin, may switch to p.o. Levaquin if the EKG is with a QTc interval. QTc on the EKG is 445, we may switch to p.o. Levaquin 250 mg once daily for 10 days and complete with the IV vancomycin in each dialysis to complete the osteomyelitis therapy. We will follow with you. Jose Miguel Mane MD
[2017-10-01] MEDS: Albuterol-Ipratrop 3 mg / 0.5 (3 ml) UD IH SCH ×3 (07:09→19:59)
[2017-10-01] MEDS: Insulin Reg-MEDIUM-Coverage SC SCH ×4 (08:00→21:25)
[2017-10-01 08:50] LABS: BASO # 0.04 K/mm3 (0.0-2.0); BASO % 0.6 % (0.0-3.0); EOS # 0.4 (0.0-0.7); EOS % 6.1 % (1.5-5.0); GRAN # 4.95 (1.4-6.5); GRAN % 69.7 % (50.0-68.0); HEMOGLOBIN 12.1 g/dL (14.0-18.0); LYMPH # 1.1 (1.2-3.4); LYMPH % 15.4 % (22.0-35.0); MEAN CELL VOLUME 100.5 fl (80.0-105.0); MEAN CORPUSCULAR HEMOGLOBIN 30.3 pg (25.0-35.0); MEAN CORPUSCULAR HGB CONC 30.1 g/dl (31.0-37.0); MEAN PLATELET VOLUME 13.5 fl (7.0-11.0); MONO # 0.6 (0.1-0.6); MONO % 8.2 % (1.0-6.0); RED CELL DISTRIBUTION WIDTH 18.5 % (11.5-14.5); WHITE BLOOD COUNT 7.1 10^3/ul (4.5-11.0)
[2017-10-01 08:59] LABS: ALB/GLOB RATIO 1.1 (1.1-1.8); CALCIUM 9.7 mg/dL (8.4-10.5)
[2017-10-01] MEDS: Bacitracin 500 Units/gm Oint Foilpak UD TOP SCH ×2 (10:16→18:57)
[2017-10-01] MEDS: Hydrocerin(120 gm) TOP SCH (10:16)
--- NOTE | 2017-10-01 13:57 | CP.PCM.PN ---
Subjective - Date & Time of Evaluation Date of Evaluation: 10/01/17 Time of Evaluation: 13:54 - Subjective Subjective: 67 y/o male seen at bedside today regarding right hallux amputation site with darkening of right foot 2nd toe. Pt is having mild pain at this time, throughout his right leg and into his foot. He states it is worsened by any kind of movement. Denies any new pedal complaints. Denies F/C/N/V/CP/SOB Objective - Vital Signs/Intake and Output Vital Signs (last 24 hours): Temp Pulse Resp BP Pulse Ox 98.9 F 72 18 100/73 98 10/01/17 07:30 10/01/17 09:58 10/01/17 07:30 10/01/17 09:58 10/01/17 07:30 Intake and Output: 10/01/17 10/01/17 06:59 18:59 Intake Total 420 Output Total 0 Balance 420 - Medications Medications: Current Medications Acetaminophen (Tylenol 325mg Tab) 650 mg PO Q4H PRN PRN Reason: Fever >100.4 F Last Admin: 09/27/17 19:59 Dose: 650 mg Albuterol/Ipratropium (Duoneb 3 Mg/0.5 Mg (3 Ml) Ud) 3 ml IH TIDRESP [facility] Last Admin: 10/01/17 13:18 Dose: 3 ml Albuterol/Ipratropium (Duoneb 3 Mg/0.5 Mg (3 Ml) Ud) 3 ml IH Q2H PRN PRN Reason: Shortness of Breath Aspirin (Aspirin Chewable) 81 mg PO DAILY [facility] Last Admin: 10/01/17 09:58 Dose: 81 mg Bacitracin (Bacitracin) 1 ea TOP BID [facility] Last Admin: 10/01/17 10:16 Dose: 1 ea Carvedilol (Coreg) 25 mg PO BID [facility] Last Admin: 10/01/17 09:58 Dose: 25 mg Clopidogrel Bisulfate (Plavix) 75 mg PO DAILY [facility] Last Admin: 10/01/17 10:16 Dose: 75 mg Fluoxetine HCl (Prozac) 20 mg PO DAILY [facility] Last Admin: 10/01/17 09:58 Dose: 20 mg Guaifenesin/Dextromethorphan (Robitussin Dm) 5 ml PO Q4H PRN PRN Reason: Cough Last Admin: 09/29/17 18:07 Dose: 5 ml Insulin Human Regular (Humulin R Med) 0 units SC ACHS [facility] PRN Reason: Protocol Last Admin: 10/01/17 12:00 Dose: Not Given Levofloxacin (Levaquin) 250 mg PO DAILY [facility] PRN Reason: Protocol Stop: 10/15/17 10:01 Last Admin: 10/01/17 09:58 Dose: 250 mg Multi-Ingredient Cream (Hydrocerin Cream) 0 ea TOP DAILY [facility] Last Admin: 10/01/17 10:16 Dose: 1 applic Ondansetron HCl (Zofran Inj) 4 mg IVP Q6H PRN PRN Reason: Nausea/Vomiting Last Admin: 09/30/17 12:58 Dose: 4 mg Oxycodone/Acetaminophen (Percocet 5/325 Mg Tab) 1 tab PO Q6H PRN PRN Reason: Pain, moderate (4-7) Stop: 10/02/17 11:50 Last Admin: 10/01/17 09:31 Dose: 1 tab Sevelamer HCl (Renagel) 800 mg PO WM [facility] Last Admin: 10/01/17 11:44 Dose: 800 mg Tamsulosin HCl (Flomax) 0.4 mg PO DAILY [facility] Last Admin: 10/01/17 09:58 Dose: 0.4 mg - Labs Labs: 10/01/17 08:36 10/01/17 08:36 - Constitutional Appears: Well, Non-toxic, No Acute Distress - Extremities Exam Additional comments: Lower extremity focused exam: Vasc: Right DP faintly palpable 1/4, PT non-palpable. Left DP weakly palpable, PT pulse non-palpable. Temperature gradient is warm to cold proximal to distal, R worse than L. CFT delayed but present to digits. No pedal edema noted at this time Ortho: No tenderness on palpation of right hallux amputation site. Mild tenderness noted to palpation of right foot 2nd toe. Moderate tenderness on palpation of right leg and ankle. Neuro: Epicritic and protective sensation grossly diminished B/L Derm: Surgical incision site noted to right hallux. Ischemic darkening changes noted to entirety of incision site. No dehiscence is noted at this time. Skin edges appear well coapted. No drainage, malodor, purulence, or fluctuance is noted to hallux amp site. Gangrenous skin changes noted to right foot 2nd toe at dorsal and medial aspects of digit, indicative of further worsening of ischemia. Medial aspect of digit exhibits pallor. No other clinical signs of infection. - Neurological Exam Neurological Exam: Alert, Awake, Oriented x3 - Psychiatric Exam Psychiatric exam: Normal Affect, Normal Mood Assessment and Plan - Assessment and Plan (Free Text) Assessment: 67 year old male with 1) 17 days s/p right partial hallux amputation secondary to ischemia and PVD and 2) gangrenous changes noted to right foot 2nd digit Plan: Patient examined and evaluated at bedside Discussed plan with attending, Dr. Smith Labs and vitals reviewed; afebrile, WBC 7.1 Continue pain management per primary team Continue IV abx per ID - Vancomycin Surgical site cleansed with sterile saline Dressing applied to right foot hallux surgical site and 2nd toe with betadine and DSD Discussed with patient and patient's the possibility that this wound may not heal and may require more proximal amputation Podiatry will continue to monitor closely; no further surgical intervention at present but may be necessary in future
--- NOTE | 2017-10-01 16:42 | CP.PCM.PN ---
Subjective - Date & Time of Evaluation Date of Evaluation: 10/01/17 Time of Evaluation: 11:00 - Subjective Subjective: DATE: 10/01/2017 SUBJECTIVE: back pain improved. No shortness of breath. No headaches. He has end-stage renal disease, on hemodialysis. He has community-acquired pneumonia, recovering from that. Nausea improved with zofran. REVIEW OF SYSTEMS: As per HPI. Rest of 12-point review of systems is reviewed and negative. PHYSICAL EXAMINATION: GENERAL: Comfortable in bed, in no acute distress. VITAL SIGNS: reviewed. HEENT: Pallor positive. NECK: No lymphadenopathy. CHEST: Air entry present equal and bilateral. No added sounds. CARDIOVASCULAR: S1 and S2 normal. No murmur and no gallop. ABDOMEN: Soft, nontender. No hepatosplenomegaly. EXTREMITIES: No edema. BACK: Bedsores present. LABORATORY DATA: White count 2.7, hemoglobin 10.7, hematocrit 34.3, and platelet count 139. Glucose 226. MEDICATIONS: Tylenol 650 q.4h. p.r.n., DuoNeb, aspirin 81 mg daily, bacitracin topical, Coreg 25 mg p.o. b.i.d., Plavix 75 mg daily, Prozac 20 mg daily, levofloxacin 250 mg daily, Renagel 800 mg, and Flomax 0.4 mg daily. ASSESSMENT: 1. Healthcare-associated pneumonia. 2. Endstage renal disease, on hemodialysis. 3. Nausea and vomiting. 4. Leukopenia. 5. Anemia. 6. History of osteomyelitis. PLAN: He is currently on aspirin, currently on bronchodilators. We will continue that. Cardiac meds to continue; Coreg, aspirin, and Plavix. He is on fluoxetine. Antibiotic, Levaquin 250 mg daily. Zofran 4 mg q.6h. p.r.n. for nausea. Flomax 0.4 mg daily. He is awaiting subacute rehab placement. Poonam Oakley MD Objective - Vital Signs/Intake and Output Vital Signs (last 24 hours): Temp Pulse Resp BP Pulse Ox 98.9 F 72 18 100/73 98 10/01/17 07:30 10/01/17 09:58 10/01/17 07:30 10/01/17 09:58 10/01/17 07:30 Intake and Output: 10/01/17 10/01/17 06:59 18:59 Intake Total 420 240 Output Total 0 Balance 420 240 - Medications Medications: Current Medications Acetaminophen (Tylenol 325mg Tab) 650 mg PO Q4H PRN PRN Reason: Fever >100.4 F Last Admin: 09/27/17 19:59 Dose: 650 mg Albuterol/Ipratropium (Duoneb 3 Mg/0.5 Mg (3 Ml) Ud) 3 ml IH TIDRESP [facility] Last Admin: 10/01/17 13:18 Dose: 3 ml Albuterol/Ipratropium (Duoneb 3 Mg/0.5 Mg (3 Ml) Ud) 3 ml IH Q2H PRN PRN Reason: Shortness of Breath Aspirin (Aspirin Chewable) 81 mg PO DAILY [facility] Last Admin: 10/01/17 09:58 Dose: 81 mg Bacitracin (Bacitracin) 1 ea TOP BID [facility] Last Admin: 10/01/17 10:16 Dose: 1 ea Carvedilol (Coreg) 25 mg PO BID [facility] Last Admin: 10/01/17 09:58 Dose: 25 mg Clopidogrel Bisulfate (Plavix) 75 mg PO DAILY [facility] Last Admin: 10/01/17 10:16 Dose: 75 mg Fluoxetine HCl (Prozac) 20 mg PO DAILY [facility] Last Admin: 10/01/17 09:58 Dose: 20 mg Guaifenesin/Dextromethorphan (Robitussin Dm) 5 ml PO Q4H PRN PRN Reason: Cough Last Admin: 09/29/17 18:07 Dose: 5 ml Insulin Human Regular (Humulin R Med) 0 units SC ACHS [facility] PRN Reason: Protocol Last Admin: 10/01/17 16:10 Dose: Not Given Levofloxacin (Levaquin) 250 mg PO DAILY [facility] PRN Reason: Protocol Stop: 10/15/17 10:01 Last Admin: 10/01/17 09:58 Dose: 250 mg Multi-Ingredient Cream (Hydrocerin Cream) 0 ea TOP DAILY [facility] Last Admin: 10/01/17 10:16 Dose: 1 applic Ondansetron HCl (Zofran Inj) 4 mg IVP Q6H PRN PRN Reason: Nausea/Vomiting Last Admin: 09/30/17 12:58 Dose: 4 mg Oxycodone/Acetaminophen (Percocet 5/325 Mg Tab) 1 tab PO Q6H PRN PRN Reason: Pain, moderate (4-7) Stop: 10/02/17 11:50 Last Admin: 10/01/17 09:31 Dose: 1 tab Sevelamer HCl (Renagel) 800 mg PO WM [facility] Last Admin: 10/01/17 11:44 Dose: 800 mg Tamsulosin HCl (Flomax) 0.4 mg PO DAILY [facility] Last Admin: 10/01/17 09:58 Dose: 0.4 mg - Labs Labs: 10/01/17 08:36 10/01/17 08:36
--- NOTE | 2017-10-01 18:46 | PN ---
DATE: 10/01/2017 REASON FOR CONSULTATION AND FOLLOWUP: History of coronary artery disease; peripheral artery disease; generalized weakness; end-stage renal disease, on dialysis; rule out pneumonia; leg pain. PHYSICAL EXAMINATION: VITAL SIGNS: Temperature afebrile, heart rate 72, blood pressure 100/73. HEENT: PERRLA. Extraocular muscles intact. NECK: Supple. No carotid bruit. No thyromegaly. CHEST: Clear to auscultation. HEART: S1 and S2 regular. ABDOMEN: Soft. EXTREMITIES: Clubbing, cyanosis negative. LABORATORY DATA: Blood workup as follows: WBC , hemoglobin 12.9, hematocrit 40.2, platelet count 142. Chemistry shows sodium 139, potassium 4.5, chloride 96, carbon dioxide 26, anion gap of 22, BUN 66, creatinine 6.6. IMPRESSION: End-stage renal disease, on dialysis; coronary artery disease, status post multiple stent; history of peripheral arterial disease, status post superficial femoral artery percutaneous transluminal coronary angioplasty with atherectomy with a drug-coated balloon in 06/2016, left, and is status post percutaneous transluminal coronary angioplasty of right superficial femoral artery with a drug-coated balloon and atherectomy in July. History of recent percutaneous transluminal coronary angioplasty of anterior tibial by Dr. Gonzalez, and is status post amputation of toes. RECOMMENDATION: Aggressive medical treatment. Explained to the patient with the and the [id number] the patient needs to sit up on the bed with the leg hanging down to improve the circulation, also emphasized mobilizing and walking as much as possible to improve circulation and improve wound healing. In the interim, continue aggressive medical treatment and rehab therapy. Continue aspirin, continue Coreg, continue carvedilol, continue Plavix, continue broad-spectrum antibiotic. Telemetry has been discontinued. DISCHARGE PLANNING: Out of bed to chair. Also told the nurse to get out of bed to chair. Thank you, Dr. Agarwal, for providing us the opportunity in taking care of the patient, Jf Sifuentesethan. Katharina Tejeda MD
--- NOTE | 2017-10-01 20:00 | PN ---
DATE: 10/01/2017 SUBJECTIVE: The patient is in bed, in no acute distress, nontoxic. PHYSICAL EXAMINATION: VITAL SIGNS: Temperature is 98, blood pressure is now 100/60, respiratory rate of 18, and heart rate of 71. HEENT: Unremarkable. NECK: Supple. LUNGS: Have decreased breath sounds. HEART: Normal S1 and S2. ABDOMEN: Soft. LABORATORY DATA: Reveals a white count of 7.1, hemoglobin of 12, platelets of 142. Chemistries reveal a BUN of 60, creatinine of 6.6. Influenza is negative. Microbiology reveals Klebsiella in the sputum, pansensitive Klebsiella. CAT scan of the chest is noted. Review of orders reveals the patient to be on p.o. Levaquin. ASSESSMENT AND PLAN: This is a 67-year-old male who was seen earlier today with Klebsiella healthcare-associated pneumonia, still shows necrosis and osteomyelitis, and end-stage renal disease, on hemodialysis; on intermittent vancomycin, on p.o. Levaquin with a QTc of 445, to complete a total of 10 days of therapy. Jose Miguel Mane MD
[2017-10-02 03:14] VITALS: RESP 18
[2017-10-02] MEDS: Insulin Reg-MEDIUM-Coverage SC SCH ×2 (07:16→11:36)
[2017-10-02 08:01] LABS: BASO # 0.05 K/mm3 (0.0-2.0); BASO % 0.8 % (0.0-3.0); EOS # 0.3 (0.0-0.7); EOS % 5.1 % (1.5-5.0); HEMOGLOBIN 11.1 g/dL (14.0-18.0); LYMPH # 0.9 (1.2-3.4); LYMPH % 13.1 % (22.0-35.0); MEAN CELL VOLUME 98.1 fl (80.0-105.0); MEAN CORPUSCULAR HEMOGLOBIN 30.4 pg (25.0-35.0); MEAN PLATELET VOLUME 11.8 fl (7.0-11.0); MONO # 0.4 (0.1-0.6); RBC 3.65 10^6/uL (3.5-6.1); RED CELL DISTRIBUTION WIDTH 18.4 % (11.5-14.5); WHITE BLOOD COUNT 6.7 10^3/ul (4.5-11.0)
[2017-10-02 08:09] LABS: ALB/GLOB RATIO 1.1 (1.1-1.8); ALBUMIN 2.9 g/dL (3.0-4.8); CALCIUM 9.3 mg/dL (8.4-10.5)
[2017-10-02] MEDS: Albuterol-Ipratrop 3 mg / 0.5 (3 ml) UD IH SCH ×2 (09:03→13:35)
[2017-10-02] MEDS: Bacitracin 500 Units/gm Oint Foilpak UD TOP SCH (10:49)
[2017-10-02] MEDS: Hydrocerin(120 gm) TOP SCH (10:50)
[2017-10-02 11:27] VITALS: BP 112/66; PULSE 84; TEMP 98; O2SAT 100
--- NOTE | 2017-10-02 13:52 | CP.PCM.PN ---
Subjective - Date & Time of Evaluation Date of Evaluation: 10/02/17 Time of Evaluation: 12:45 - Subjective Subjective: Comfortable, no fevers. Objective - Vital Signs/Intake and Output Vital Signs (last 24 hours): Temp Pulse Resp BP Pulse Ox 98.3 F 65 18 105/69 96 10/02/17 07:30 10/02/17 07:30 10/02/17 07:30 10/02/17 07:30 10/02/17 07:30 - Medications Medications: Current Medications Acetaminophen (Tylenol 325mg Tab) 650 mg PO Q4H PRN PRN Reason: Fever >100.4 F Last Admin: 09/27/17 19:59 Dose: 650 mg Albuterol/Ipratropium (Duoneb 3 Mg/0.5 Mg (3 Ml) Ud) 3 ml IH TIDRESP [facility] Last Admin: 10/02/17 09:03 Dose: Not Given Albuterol/Ipratropium (Duoneb 3 Mg/0.5 Mg (3 Ml) Ud) 3 ml IH Q2H PRN PRN Reason: Shortness of Breath Aspirin (Aspirin Chewable) 81 mg PO DAILY [facility] Last Admin: 10/02/17 10:49 Dose: Not Given Bacitracin (Bacitracin) 1 ea TOP BID [facility] Last Admin: 10/02/17 10:49 Dose: Not Given Carvedilol (Coreg) 25 mg PO BID [facility] Last Admin: 10/02/17 10:49 Dose: Not Given Clopidogrel Bisulfate (Plavix) 75 mg PO DAILY [facility] Last Admin: 10/02/17 10:50 Dose: Not Given Fluoxetine HCl (Prozac) 20 mg PO DAILY [facility] Last Admin: 10/02/17 10:50 Dose: Not Given Guaifenesin/Dextromethorphan (Robitussin Dm) 5 ml PO Q4H PRN PRN Reason: Cough Last Admin: 09/29/17 18:07 Dose: 5 ml Insulin Human Regular (Humulin R Med) 0 units SC ACHS [facility] PRN Reason: Protocol Last Admin: 10/02/17 07:16 Dose: Not Given Levofloxacin (Levaquin) 250 mg PO DAILY [facility] PRN Reason: Protocol Stop: 10/15/17 10:01 Last Admin: 10/02/17 10:50 Dose: Not Given Multi-Ingredient Cream (Hydrocerin Cream) 0 ea TOP DAILY [facility] Last Admin: 10/02/17 10:50 Dose: Not Given Ondansetron HCl (Zofran Inj) 4 mg IVP Q6H PRN PRN Reason: Nausea/Vomiting Last Admin: 09/30/17 12:58 Dose: 4 mg Oxycodone/Acetaminophen (Percocet 5/325 Mg Tab) 1 tab PO Q6H PRN PRN Reason: Pain, moderate (4-7) Stop: 10/02/17 11:50 Last Admin: 10/01/17 22:17 Dose: 1 tab Sevelamer HCl (Renagel) 800 mg PO WM [facility] Last Admin: 10/02/17 07:18 Dose: Not Given Tamsulosin HCl (Flomax) 0.4 mg PO DAILY [facility] Last Admin: 10/02/17 10:50 Dose: Not Given - Labs Labs: 10/02/17 07:50 10/02/17 07:50 - Constitutional Appears: Chronically Ill - Head Exam Head Exam: NORMAL INSPECTION - Respiratory Exam Respiratory Exam: Decreased Breath Sounds - Cardiovascular Exam Cardiovascular Exam: +S1, +S2 - GI/Abdominal Exam GI & Abdominal Exam: Soft. absent: Tenderness Assessment and Plan - Assessment and Plan (Free Text) Plan: Assessment SIRS, consider sepsis from HCAP, growing Klebsiella in the sputum right hallux distal phalanx osteomyelitis and gangrene S/P amputation POD #15; resection margins still show necrosis and osteomyelitis ESRD on HD with left arm AV shunt DM HTN dyslipidemia Plan continue intermittent IV Vanco and will continue Levaquin day 6 of 7 days will need to complete 4 weeks of IV Vanco for the osteomyelitis (day 18 today) will continue to monitor clinically
--- NOTE | 2017-10-03 06:08 | DS ---
SUBJECTIVE: The patient has no complaints of any headaches or dizziness. No nausea, no vomiting. He initially was admitted to the hospital because of healthcare-associated pneumonia. The patient was placed and he was given IV antibiotics. He was dialyzed. He has no complaints of any headaches or dizziness. No nausea. He is going to [facility] to continue his physical therapy. He is agreeable. The patient is also being treated for an osteomyelitis in the right toe. PHYSICAL EXAMINATION: VITAL SIGNS: Temperature is 97.7, pulse is 66, blood pressure is 119/72, respirations is 18. GENERAL: The patient is lying in bed, flat, comfortable. HEENT: No oral lesion. Anicteric sclerae. Moist mucosa. NECK: No JVD, adenopathy, or thyromegaly. CARDIOVASCULAR: S1 and S2, regular. No murmurs, rubs, or gallops. LUNGS: Clear to auscultation bilaterally. No wheeze, rales, or rhonchi. ABDOMEN: Bowel sounds are positive, soft, nontender and nondistended. EXTREMITIES: no cyanosis, clubbing or edema. ASSESSMENT: 1. Healthcare-associated pneumonia. 2. End-stage renal disease, on hemodialysis. 3. Peripheral arterial disease. 4. Diabetes type 2. 5. Dyslipidemia. 6. Left arteriovenous fistula. 7. Secondary hyperparathyroidism. 8. Right anterior femoral artery angioplasty with stent. 9. Frailty. 10. Gait dysfunction. 11. Fall. 12. History of right first toe osteomyelitis. PLAN: The patient is currently comfortable. He is going to continue on aspirin. He is on Carvedilol. The patient is on nebulizer treatments. He is going to be on Levaquin for antibiotics. He is receiving Prozac. The patient is on Renagel for his secondary hyperparathyroidism. He is on renal diet. The notes from Dr. Mane has been reviewed. Condition is stable. Activity is increase as tolerated. He is going to be finishing his intermittent vancomycin and his Levaquin for additional 8 days. Maurice Agarwal MD
--- NOTE | 2017-10-03 08:16 | PN ---
DATE: 10/02/2017 REASON FOR CONSULTATION AND FOLLOWUP: History of coronary artery disease, peripheral arterial disease, *------*, end-stage renal disease, amputation of right big toe, failure to thrive, rule out pneumonia, leg pain. SUBJECTIVE: Not in distress, coming from dialysis. OBJECTIVE: GENERAL: Not in apparent distress. VITAL SIGNS: Temperature afebrile, heart rate 84, blood pressure 112/66. HEENT: PERRLA. Extraocular muscles intact. NECK: Supple. No carotid bruit or thyromegaly. CHEST: Clear to auscultation. HEART: S1, S2 regular. ABDOMEN: Soft. EXTREMITIES: Clubbing and cyanosis negative. LABORATORY DATA: Blood workup as follows: WBC *------*, hematocrit 35.8, platelet count 145. Chemistry shows sodium *------*, creatinine 8.3, *------*. IMPRESSION : Protein-calorie malnutrition, not present on admission; end-stage renal disease, on dialysis; severe peripheral arterial disease, status post percutaneous transluminal coronary angioplasty with stent, *------*SFA, status post percutaneous transluminal coronary angioplasty to anterior tibial by Dr. Gonzalez, status post amputation of the toes; coronary artery disease, status post stent; diabetes; hypertension. RECOMMENDATIONS: Aggressive medical treatment, *------*patient to get out of the bed to chair and ambulate, physical therapy, medical treatment. No further cardiac workup is planned at this time. Thank you, Dr. Agarwal, for providing us the opportunity in taking care of patient, Jf Amos. Katharina Tejeda MD
== END 2017-10-02 14:15 | DRG 871 ==
LOC: ED 09:04 → ERH 12:15 → 2RSO 16:11 → OBSVTOIN 09-28 13:05 → 5RNO 09-30 16:43
PROVIDERS: ADMIT Internal Medicine Nephrology; ATTEND Internal Medicine Nephrology
PROC: 5A1D70Z Performance of Urinary Filtration, Intermittent, Less than 6 Hours Per Day (ICD-10-PCS; principal; 2017-09-29)
PROC: 5A1D70Z Performance of Urinary Filtration, Intermittent, Less than 6 Hours Per Day (ICD-10-PCS; 2017-10-02)
DX: A41.9 Sepsis, unspecified organism (principal); J15.0 Pneumonia due to Klebsiella pneumoniae; N18.6 End stage renal disease; E46 Unspecified protein-calorie malnutrition; E11.52 Type 2 diabetes mellitus with diabetic peripheral angiopathy with gangrene; I13.2 Hypertensive heart and chronic kidney disease with heart failure and with stage 5 chronic kidney disease, or end stage renal disease; I12.0 Hypertensive chronic kidney disease with stage 5 chronic kidney disease or end stage renal disease; M86.8X7 Other osteomyelitis, ankle and foot; J44.0 Chronic obstructive pulmonary disease with (acute) lower respiratory infection; N25.81 Secondary hyperparathyroidism of renal origin; Z68.1 Body mass index [BMI] 19.9 or less, adult; Y95 Nosocomial condition; E11.69 Type 2 diabetes mellitus with other specified complication; E11.22 Type 2 diabetes mellitus with diabetic chronic kidney disease; D64.9 Anemia, unspecified; N40.0 Benign prostatic hyperplasia without lower urinary tract symptoms; F32.9 Major depressive disorder, single episode, unspecified; I25.10 Atherosclerotic heart disease of native coronary artery without angina pectoris; R62.7 Adult failure to thrive; R26.9 Unspecified abnormalities of gait and mobility; E78.5 Hyperlipidemia, unspecified; R29.6 Repeated falls; Z99.2 Dependence on renal dialysis; Z95.5 Presence of coronary angioplasty implant and graft

== ENCOUNTER 2017-10-24 14:49 | Inpatient (IN) | payer MEDICARE, OTHER ==
--- NOTE | 2017-10-24 15:18 | ED PDOC ---
Arrival/HPI - General Chief Complaint: Lower Extremity Problem/Injury Time Seen by Provider: 10/24/17 14:59 Historian: EMS - History of Present Illness Narrative History of Present Illness (Text): 10/24/17 15:17 67yo male with PMhx of Pancreatitis, ESRD - Dialysis MWF, from [place] for amputation tomorrow. Per the RN, patient have Osteomylitis and scheduled for amputation tomorrow. Pt reports right foot pain. States he usually gets percocet for his pain and the last time he took one was this morning. He denies fever, chills, chest pain, any other complaint. Past Medical History - Provider Review Nursing Documentation Reviewed: Yes - Infectious Disease Hx of Infectious Diseases: None - Tetanus Immunization Tetanus Immunization: Unknown - Cardiac Hx Cardiac Disorders: Yes Hx Pacemaker: No - Pulmonary Hx Respiratory Disorders: Yes Hx Chronic Obstructive Pulmonary Disease (COPD): Yes - Neurological Hx Neurological Disorder: Yes Hx Dizziness: Yes - HEENT Hx HEENT Disorder: Yes (WEARS RX GLASSES) - Renal Hx Renal Disorder: Yes Date of Last Dialysis Treatment: 09/25/17 - Endocrine/Metabolic Hx Endocrine Disorders: Yes Hx Diabetes Mellitus Type 1: Yes - Hematological/Oncological Hx Blood Disorders: No Hx Blood Transfusions: No Hx Blood Transfusion Reaction: No - Integumentary Hx Dermatological Disorder: Yes Other/Comment: hx of wounds due to diabetes multiple skin discolorations and dry skin both legs, left great toe swelling pain color deep red and brown skin areas around toenail, generalized dry itchy skin - Musculoskeletal/Rheumatological Hx Arthritis: Yes Other/Comment: R great toe amp - Gastrointestinal Hx Gastrointestinal Disorders: Yes - Genitourinary/Gynecological Hx Genitourinary Disorders: Yes - Psychiatric Hx Psychophysiologic Disorder: No Hx Emotional Abuse: No Hx Physical Abuse: No Hx Substance Use: No - Surgical History Other/Comment: shunt in L arm. Picc VJ. R great toeamp - Anesthesia Hx Anesthesia: Yes Hx Anesthesia Reactions: No Hx Malignant Hyperthermia: No - Suicidal Assessment Feels Threatened In Home Enviroment: No Family/Social History - Physician Review Nursing Documentation Reviewed: Yes Family/Social History: Unknown Family HX Smoking Status: Former Smoker Hx Alcohol Use: No Hx Substance Use: No Hx Substance Use Treatment: No Allergies/Home Meds Allergies/Adverse Reactions: Allergies No Known Allergies Allergy (Verified 09/27/17 09:17) Home Medications: Home Meds Medication Instructions Recorded Confirmed Aspirin [Aspirin Chewable] 81 mg PO DAILY 09/10/17 10/24/17 Carvedilol [Coreg] 25 mg PO BID 09/10/17 10/24/17 Sevelamer [Renagel] 800 mg PO TID 09/10/17 10/24/17 Tamsulosin [Flomax] 0.4 mg PO DAILY 09/10/17 10/24/17 Acetaminophen [Tylenol 325mg tab] 650 mg PO PRN PRN 10/24/17 10/24/17 Albuterol/Ipratropium [Duoneb 3 3 ml IH Q8 10/24/17 10/24/17 MG/3 Ml-0.5 MG/3 Ml 3 Ml] Amoxicillin 500 mg PO TID 10/24/17 10/24/17 Bacitracin OINT 0 applic 10/24/17 Clopidogrel [Plavix] 75 mg PO DAILY 10/24/17 10/24/17 Collagenase [Santyl] 30 applic TOP HS 10/24/17 10/24/17 FLUoxetine [Fluoxetine HCl] 20 mg PO DAILY 10/24/17 10/24/17 Insulin Regular [HumuLIN R] 0 units SC 10/24/17 Ondansetron HCl [Zofran] 4 mg PO PRN PRN 10/24/17 10/24/17 guaiFENesin/Dextromethorphan 5 ml PO PRN PRN 10/24/17 10/24/17 [Guaifenesin-Dm 10 MG/5 Ml-100 MG/5 Ml 5 Ml] oxyCODONE/Acetaminophen [Percocet 1 tab PO PRN PRN 10/24/17 10/24/17 5/325 mg Tab] Review of Systems - Physician Review All systems were reviewed & negative as marked: Yes - Review of Systems Constitutional: Normal Eyes: Normal ENT: Normal Respiratory: Normal Cardiovascular: Normal Gastrointestinal: Normal Genitourinary Male: Normal Musculoskeletal: Arthralgias (right foot pain/infection) Skin: Normal Neurological: Normal Endocrine: Normal Hemo/Lymphatic: Normal Psychiatric: Normal Physical Exam Vital Signs Reviewed: Yes Vital Signs Temp Pulse Resp BP Pulse Ox 10/24/17 18:50 71 18 115/83 99 10/24/17 16:42 74 18 99/60 L 97 10/24/17 14:54 98.8 F 74 18 99/54 L 97 Temperature: Afebrile Blood Pressure: Normal Pulse: Regular Respiratory Rate: Normal Appearance: Positive for: Well-Appearing, Non-Toxic, Comfortable Pain Distress: None Mental Status: Positive for: Alert and Oriented X 3 - Systems Exam Head: Present: Atraumatic, Normocephalic Pupils: Present: PERRL Extroacular Muscles: Present: EOMI Conjunctiva: Present: Normal Mouth: Present: Moist Mucous Membranes Neck: Present: Normal Range of Motion Respiratory/Chest: Present: Clear to Auscultation, Good Air Exchange. No: Respiratory Distress, Accessory Muscle Use Cardiovascular: Present: Regular Rate and Rhythm, Normal S1, S2. No: Murmurs Abdomen: Present: Normal Bowel Sounds. No: Tenderness, Distention, Peritoneal Signs Back: Present: Normal Inspection Upper Extremity: Present: Normal Inspection. No: Cyanosis, Edema Lower Extremity: Present: Normal Inspection, Other (Right foot clean dressing noted in place to right foot). No: Edema Neurological: Present: GCS=15, CN II-XII Intact, Speech Normal Skin: Present: Warm, Dry, Normal Color. No: Rashes Psychiatric: Present: Alert, Oriented x 3, Normal Insight, Normal Concentration Medical Decision Making ED Course and Treatment: 10/24/17 20:13 PT in ED for stated history. He was hemodynamically stable. EKG NSR @73bpm. No ST changes CXR NAD Lab was reviewed without leukocytosis. Elevated Cr 4.5 secondary to h/o ESRD Maxipime ordered Case was DW Dr. Dubose and pt was admitted. He requested Drs. Mane and Bryce consult. - Lab Interpretations Lab Results: 10/24/17 15:54 10/24/17 15:54 Lab Results 10/24/17 15:54: Blood Type O POSITIVE, Antibody Screen Negative, BBK History Checked Patient has bt 10/24/17 15:54: Sodium 136, Potassium 4.2, Chloride 91 L, Carbon Dioxide 33, Anion Gap 17, BUN 48 H, Creatinine 4.3 H, Est GFR ( Amer) 17, Est GFR ( Non-Af Amer) 14, Random Glucose 139 H, Calcium 9.5, Total Bilirubin 1.0, AST 21 , ALT 18, Alkaline Phosphatase 204 H D, Total Protein 6.7, Albumin 3.5, Globulin 3.2, Albumin/Globulin Ratio 1.1 10/24/17 15:54: PT 14.5 H, INR 1.27 H, APTT 31.4 10/24/17 15:54: WBC 4.7 D, RBC 3.60, Hgb 10.9 L, Hct 35.3 L, MCV 98.1, MCH 30.3 , MCHC 30.9 L, RDW 16.9 H, Plt Count 125, MPV 12.7 H, Gran % 65.2, Lymph % (Auto ) 13.8 L, [place] % (Auto) 10.4 H, Eos % (Auto) 10.0 H, Baso % (Auto) 0.6, Gran # 3.08, Lymph # (Auto) 0.7 L, [place] # (Auto) 0.5, Eos # (Auto) 0.5, Baso # (Auto) 0.03 - RAD Interpretation Radiology Orders: 10/24/17 16:55 CHEST PORTABLE [RAD] Stat - Medication Orders Current Medication Orders: Discontinued Medications Cefepime HCl (Maxipime 2gm) 2 gm in 100 mls @ 100 mls/hr IVPB STAT STA PRN Reason: Protocol Stop: 10/24/17 17:57 Last Admin: 10/24/17 18:54 Dose: 100 mls/hr eMAR Start Stop Document 10/24/17 18:54 [email or web address] (Rec: 10/24/17 18:55 CAST [id number]) Intravenous Solution Start Date 10/24/17 Start Time 18:54 End Date 10/24/17 Oxycodone/Acetaminophen (Percocet 5/325 Mg Tab) 1 tab PO STAT STA Stop: 10/24/17 16:04 Last Admin: 10/24/17 16:58 Dose: 1 tab MAR Pain Assessment Document 10/24/17 16:58 [email or web address] (Rec: 10/24/17 16:58 CAST [id number]) Pain Reassessment Is this a pain reassessment? No Sleep Is patient sleeping during reassessment? No Presence of Pain Presence of Pain Yes Pain Scale Used Pain Scale Used Numeric Location Pain Location Body Site Foot Description Description Constant Intensity of Pain at present 8 Pain Behavior Facial Grimacing Aggravating Factors Changing Position Alleviating Factors/Management Position Change Techniques Alleviating Factors Medication Disposition/Present on Arrival - Present on Arrival Any Indicators Present on Arrival: No History of DVT/PE: No History of Uncontrolled Diabetes: Yes Urinary Catheter: No History of Decub. Ulcer: No History Surgical Site Infection Following: None - Disposition Have Diagnosis and Disposition been Completed?: Yes Diagnosis: Gangrene of toe of right foot, Renal insufficiency Disposition: HOSPITALIZED Disposition Time: 16:00 Condition: STABLE
[2017-10-24] MEDS ORDERED: Oxycodone/Acetaminophen 5/325 mg Tab PO STA (16:03)
[2017-10-24 16:14] LABS: BASO # 0.03 K/mm3 (0.0-2.0); BASO % 0.6 % (0.0-3.0); EOS # 0.5 (0.0-0.7); GRAN # 3.08 (1.4-6.5); GRAN % 65.2 % (50.0-68.0); HEMOGLOBIN 10.9 g/dL (14.0-18.0); LYMPH # 0.7 (1.2-3.4); LYMPH % 13.8 % (22.0-35.0); MEAN CELL VOLUME 98.1 fl (80.0-105.0); MEAN CORPUSCULAR HEMOGLOBIN 30.3 pg (25.0-35.0); MEAN CORPUSCULAR HGB CONC 30.9 g/dl (31.0-37.0); MEAN PLATELET VOLUME 12.7 fl (7.0-11.0); MONO # 0.5 (0.1-0.6); MONO % 10.4 % (1.0-6.0); RBC 3.6 10^6/uL (3.5-6.1); RED CELL DISTRIBUTION WIDTH 16.9 % (11.5-14.5); WHITE BLOOD COUNT 4.7 10^3/ul (4.5-11.0)
[2017-10-24 16:26] LABS: INR 1.27 (0.93-1.08); PARTIAL THROMBOPLASTIN TIME 31.4 Seconds (25.1-36.5); PROTHROMBIN TIME 14.5 SECONDS (9.4-12.5)
[2017-10-24 16:38] LABS: ALB/GLOB RATIO 1.1 (1.1-1.8); ALBUMIN 3.5 g/dL (3.0-4.8); CALCIUM 9.5 mg/dL (8.4-10.5)
[2017-10-24] MEDS ORDERED: Cefepime IV 2 gm in NS 2 GM/100 ML BAG IVPB STA (16:58)
[2017-10-24] MEDS: Insulin Reg-MEDIUM-Coverage SC SCH (22:04)
[2017-10-25 00:43] VITALS: BMI 19.1
[2017-10-25 06:55] LABS: BASO # 0.04 K/mm3 (0.0-2.0); BASO % 0.7 % (0.0-3.0); EOS # 0.7 (0.0-0.7); EOS % 12.3 % (1.5-5.0); GRAN # 3.6 (1.4-6.5); GRAN % 64.1 % (50.0-68.0); HEMOGLOBIN 10.6 g/dL (14.0-18.0); LYMPH # 0.8 (1.2-3.4); LYMPH % 14.9 % (22.0-35.0); MEAN CORPUSCULAR HEMOGLOBIN 30.3 pg (25.0-35.0); MEAN CORPUSCULAR HGB CONC 31.8 g/dl (31.0-37.0); MEAN PLATELET VOLUME 13.4 fl (7.0-11.0); MONO # 0.5 (0.1-0.6); RBC 3.5 10^6/uL (3.5-6.1); RED CELL DISTRIBUTION WIDTH 16.7 % (11.5-14.5); WHITE BLOOD COUNT 5.6 10^3/ul (4.5-11.0)
[2017-10-25 07:02] LABS: MEAN CELL VOLUME 95.1 fl (80.0-105.0)
[2017-10-25 07:11] LABS: ALBUMIN 3.2 g/dL (3.0-4.8); CALCIUM 9.5 mg/dL (8.4-10.5)
[2017-10-25] MEDS ORDERED: Vancomycin 2 GM in Sodium Chloride 0.9% 500 ML IVPB ONE (07:30)
[2017-10-25] MEDS: Insulin Reg-MEDIUM-Coverage SC SCH ×4 (07:30→21:38)
--- NOTE | 2017-10-25 09:05 | CARD ---
APPROVED REPORT EKG Measurement Heart [id number] <Conclusion> Poor data quality, interpretation may be adversely affected Normal sinus rhythm Rightward axis Low voltage QRS Poor R Progression V1-V3. Non Specific ST_T Changes.
--- NOTE | 2017-10-25 09:52 | RAD ---
HISTORY: admission COMPARISON: 09/27/2017 FINDINGS: LUNGS: No active pulmonary disease. PLEURA: No significant pleural effusion identified, no pneumothorax apparent. CARDIOVASCULAR: Mild cardiomegaly OSSEOUS STRUCTURES: No significant abnormalities. VISUALIZED UPPER ABDOMEN: Normal. OTHER FINDINGS: None. IMPRESSION: No active disease.
[2017-10-25] MEDS ORDERED: guaiFENesin DM 100 mg-10 mg/5 ml UD PO PRN (12:29)
[2017-10-25] MEDS ORDERED: Oxycodone/Acetaminophen 5/325 mg Tab PO PRN (12:36)
[2017-10-25] MEDS: Albuterol-Ipratrop 3 mg / 0.5 (3 ml) UD IH SCH ×3 (14:07→21:33)
--- NOTE | 2017-10-25 15:45 | CP.PCM.CON ---
History of Present Illness - History of Present Illness History of Present Illness: Podiatry Consult Note - Dr. Smith 67 year old male patient PMHx ESRD on HD MWF, DM, HTN, COPD, hx of OM seen and evaluated at bedside for right foot ischemia and gangrene to 1st and 2nd digits. Patient hemodynamically stable and NAD. Patient complaining of persistent 10/10 pain to right foot not alleviated with pain medications. Patient well known to podiatry service. Of note, patient was recently admitted last month for right foot ischemia/gangrene to distal aspect of right great toe ; during this admission patient underwent partial great toe amputation. Patient had been seen regularly in wound care center to continue to monitor ischemia, during this time right great toe amputation site became gangrenous, along with the distal aspect of the 2nd digit. Patient was sent to ED yesterday by Dr. Smith, and is aware he is scheduled for right foot transmetatarsal amputation tomorrow. Offers no other pedal complaints. Denies N/V/F/D/C/SOB. Review of Systems - Review of Systems All systems: reviewed and no additional remarkable complaints except (as per HPI ) Past Patient History - Infectious Disease Hx of Infectious Diseases: None - Tetanus Immunizations Tetanus Immunization: Unknown - Past Medical History & Family History Past Medical History?: Yes - Past Social History Smoking Status: Former Smoker - CARDIAC Hx Cardiac Disorders: Yes Hx Congestive Heart Failure: Yes Hx Hypercholesterolemia: Yes Hx Hypertension: Yes Hx Pacemaker: No - PULMONARY Hx Respiratory Disorders: Yes Hx Chronic Obstructive Pulmonary Disease (COPD): Yes - NEUROLOGICAL Hx Neurological Disorder: Yes Hx Dizziness: Yes - HEENT Hx HEENT Problems: Yes (WEARS RX GLASSES) Hx Blind: Yes (R eye) - RENAL Hx Chronic Kidney Disease: Yes Hx [place]: [place] [place] Hx Renal Failure: Yes - ENDOCRINE/METABOLIC Hx Endocrine Disorders: Yes Hx Diabetes Mellitus Type 2: Yes - HEMATOLOGICAL/ONCOLOGICAL Hx Blood Disorders: Yes Hx Anemia: Yes Hx Hepatitis A: Yes - INTEGUMENTARY Hx Dermatological Problems: Yes Other/Comment: hx of wounds due to diabetes multiple skin discolorations and dry skin both legs, left great toe swelling pain color deep red and brown skin areas around toenail, generalized dry itchy skin - MUSCULOSKELETAL/RHEUMATOLOGICAL Hx Falls: No - GASTROINTESTINAL Hx Gastrointestinal Disorders: Yes Hx Gastroesophageal Reflux: Yes - GENITOURINARY/GYNECOLOGICAL Hx Genitourinary Disorders: Yes - PSYCHIATRIC Hx Psychophysiologic Disorder: No Hx Emotional Abuse: No Hx Physical Abuse: No - SURGICAL HISTORY Hx Surgeries: Yes - ANESTHESIA Hx Anesthesia: Yes Hx Anesthesia Reactions: No Hx Malignant Hyperthermia: No Meds Allergies/Adverse Reactions: Allergies Allergy/AdvReac Type Severity Reaction Status Date / Time No Known Allergies Allergy Verified 09/27/17 09:17 - Medications Medications: Current Medications Albuterol/Ipratropium (Duoneb 3 Mg/0.5 Mg (3 Ml) Ud) 3 ml IH [id number] [facility] Last Admin: 10/25/17 14:07 Dose: 3 ml Carvedilol (Coreg) 25 mg PO BID CURLY Fluoxetine HCl (Prozac) 20 mg PO DAILY [facility] Last Admin: 10/25/17 13:43 Dose: 20 mg Guaifenesin/Dextromethorphan (Robitussin Dm) 5 ml PO Q4H PRN PRN Reason: Cough Insulin Human Regular (Humulin R Med) 0 units SC ACHS [facility] PRN Reason: Protocol Last Admin: 10/25/17 07:30 Dose: Not Given Ketorolac Tromethamine (Toradol) 30 mg IVP Q6 PRN PRN Reason: Pain, severe (8-10) Last Admin: 10/25/17 11:54 Dose: 30 mg Oxycodone/Acetaminophen (Percocet 5/325 Mg Tab) 1 tab PO Q6H PRN PRN Reason: Pain, moderate (4-7) Stop: 10/28/17 12:37 Sevelamer HCl (Renagel) 800 mg PO TID [facility] Tamsulosin HCl (Flomax) 0.4 mg PO DAILY [facility] Last Admin: 10/25/17 13:43 Dose: 0.4 mg Physical Exam - Constitutional Appears: Well, Non-toxic, No Acute Distress - Extremities Exam Additional comments: RLE focused physical exam VASC: DP and PT pulses non-palpable secondary to edema. CFT unable to be assessed to 2nd digit, delayed to digits 3,4,5. Temperature gradient cool to cool from proximal to distal. +2 pitting edema noted to lower extremity. NEURO: Gross sensation diminished. DERM: Surgical incision from previous partial hallux amputation noted to right foot with sutures intact and no wound dehiscence noted - dry gangrene noted to distal aspect of amputation site; no drainage, purulence, fluctuance, malodor, or periwound erythema. Dry necrosis noted to distal aspect of 2nd digit. Darkened discoloration/ischemia extending proximally from base of digits. Diffuse xerosis to lower extremity. ORTHO: Partial hallux amptuation with pain on palpation. Pain on palpation 2nd digit. - Neurological Exam Neurological exam: Alert, Oriented x3 - Psychiatric Exam Psychiatric exam: Normal Affect, Normal Mood Results - Vital Signs Recent Vital Signs: Last Vital Signs Temp 97.5 F L 10/25/17 12:10 Pulse 70 10/25/17 14:10 Resp 16 10/25/17 12:10 BP 123/88 10/25/17 12:10 Pulse Ox 100 10/25/17 12:10 - Labs Result Diagrams: 10/25/17 05:30 10/25/17 05:30 Labs: Laboratory Results - last 24 hr 10/24/17 10/25/17 10/25/17 21:33 05:30 05:30 WBC 5.6 RBC 3.50 Hgb 10.6 L Hct 33.3 L MCV 95.1 D MCH 30.3 MCHC 31.8 RDW 16.7 H Plt Count 119 L MPV 13.4 H Gran % 64.1 Lymph % (Auto) 14.9 L [place] % (Auto) 8.0 H Eos % (Auto) 12.3 H Baso % (Auto) 0.7 Gran # 3.60 Lymph # (Auto) 0.8 L [place] # (Auto) 0.5 Eos # (Auto) 0.7 Baso # (Auto) 0.04 Sodium 136 Potassium 4.5 Chloride 94 L Carbon Dioxide 30 Anion Gap 17 BUN 53 H Creatinine 4.8 H Est GFR ( Amer) 15 Est GFR (Non-Af Amer) 12 POC Glucose (mg/dL) 142 H Random Glucose 155 H Calcium 9.5 Phosphorus 4.5 Total Bilirubin 1.0 AST 21 ALT 25 Alkaline Phosphatase 186 H Total Protein 6.2 Albumin 3.2 Globulin 3.0 Albumin/Globulin Ratio 1.0 L 10/25/17 10/25/17 11:36 15:16 WBC RBC Hgb Hct MCV MCH MCHC RDW Plt Count MPV Gran % Lymph % (Auto) [place] % (Auto) Eos % (Auto) Baso % (Auto) Gran # Lymph # (Auto) [place] # (Auto) Eos # (Auto) Baso # (Auto) Sodium Potassium Chloride Carbon Dioxide Anion Gap BUN Creatinine Est GFR ( Amer) Est GFR (Non-Af Amer) POC Glucose (mg/dL) 164 H 138 H Random Glucose Calcium Phosphorus Total Bilirubin AST ALT Alkaline Phosphatase Total Protein Albumin Globulin Albumin/Globulin Ratio Assessment & Plan - Assessment and Plan (Free Text) Assessment: 67 year old male patient PMHx ESRD on HD MWF, DM, HTN, COPD, hx of OM 1) 6 weeks s/p right foot partial hallux amputation with gangrene 2) right 2nd digit gangrene Plan: Patient seen and evaluated at bedside with attending, Dr. Smith Afebrile, WBC 5.6 To OR tomorrow 10/26/17 @ 07:30 for right foot transmetatarsal amptuation -NPO @mn F/u ID recs Pain control - Toradol 30mg IV, Percocet 1 tab PO DSD applied to right foot Podiatry will continue to follow while in house
--- NOTE | 2017-10-25 16:50 | CP.PCM.CON ---
History of Present Illness - History of Present Illness History of Present Illness: 67 year old male with PMH of right hallux distal phalanx osteomyelitis and gangrene S/P amputation, ESRD on HD with left arm AV shunt, DM, HTN, dyslipidemia, history of sepsis from HCAP was brought in to [facility] for transmetatarsal amputation of the right foot. He has had osteomyelitis of the right hallux but his foot has not been healing well even after amputation of the right hallux and prolonged antibiotics. He denies fever or chills, no nausea or vomiting, no chest pain, no SOB, no cough or rhinorrhea, no sore throat, no headache or dizziness, no abdominal pain, no diarrhea, no dysuria. Infectious Diseases consult is requested to further evaluate and manage. Review of Systems - Review of Systems All systems: reviewed and no additional remarkable complaints except (as per HPI ) Past Patient History - Infectious Disease Hx of Infectious Diseases: None - Tetanus Immunizations Tetanus Immunization: Unknown - Past Medical History & Family History Past Medical History?: Yes - Past Social History Smoking Status: Former Smoker - CARDIAC Hx Cardiac Disorders: Yes Hx Congestive Heart Failure: Yes Hx Hypercholesterolemia: Yes Hx Hypertension: Yes Hx Pacemaker: No - PULMONARY Hx Respiratory Disorders: Yes Hx Chronic Obstructive Pulmonary Disease (COPD): Yes - NEUROLOGICAL Hx Neurological Disorder: Yes Hx Dizziness: Yes - HEENT Hx HEENT Problems: Yes (WEARS RX GLASSES) Hx Blind: Yes (R eye) - RENAL Hx Chronic Kidney Disease: Yes Hx Dialysis: Yes (MW @[facility] [place] for 2 years) Hx Renal Failure: Yes - ENDOCRINE/METABOLIC Hx Endocrine Disorders: Yes Hx Diabetes Mellitus Type 2: Yes - HEMATOLOGICAL/ONCOLOGICAL Hx Blood Disorders: Yes Hx Anemia: Yes Hx Hepatitis A: Yes - INTEGUMENTARY Hx Dermatological Problems: Yes Other/Comment: hx of wounds due to diabetes multiple skin discolorations and dry skin both legs, left great toe swelling pain color deep red and brown skin areas around toenail, generalized dry itchy skin - MUSCULOSKELETAL/RHEUMATOLOGICAL Hx Falls: No - GASTROINTESTINAL Hx Gastrointestinal Disorders: Yes Hx Gastroesophageal Reflux: Yes - GENITOURINARY/GYNECOLOGICAL Hx Genitourinary Disorders: Yes - PSYCHIATRIC Hx Psychophysiologic Disorder: No Hx Emotional Abuse: No Hx Physical Abuse: No - SURGICAL HISTORY Hx Surgeries: Yes - ANESTHESIA Hx Anesthesia: Yes Hx Anesthesia Reactions: No Hx Malignant Hyperthermia: No Meds Allergies/Adverse Reactions: Allergies Allergy/AdvReac Type Severity Reaction Status Date / Time No Known Allergies Allergy Verified 09/27/17 09:17 - Medications Medications: Current Medications Insulin Human Regular (Humulin R Med) 0 units SC ACHS [facility] PRN Reason: Protocol Last Admin: 10/24/17 22:04 Dose: Not Given Ketorolac Tromethamine (Toradol) 30 mg IVP Q6 PRN PRN Reason: Pain, severe (8-10) Last Admin: 10/25/17 05:30 Dose: 30 mg Physical Exam - Constitutional Appears: Non-toxic, Chronically Ill - Head Exam Head Exam: NORMAL INSPECTION - ENT Exam ENT Exam: Mucous Membranes Moist - Neck Exam Neck exam: Negative for: Meningismus - Respiratory Exam Respiratory Exam: Decreased Breath Sounds - Cardiovascular Exam Cardiovascular Exam: +S1, +S2 - GI/Abdominal Exam GI & Abdominal Exam: Soft. absent: Tenderness Results - Vital Signs Recent Vital Signs: Last Vital Signs Temp 98.8 F 10/24/17 14:54 Pulse 71 10/24/17 18:50 Resp 18 10/25/17 00:06 BP 115/83 10/24/17 18:50 Pulse Ox 99 10/24/17 18:50 - Labs Result Diagrams: 10/25/17 05:30 10/25/17 05:30 Labs: Laboratory Results - last 24 hr 10/24/17 21:33 POC Glucose (mg/dL) 142 H Assessment & Plan - Assessment and Plan (Free Text) Plan: Assessment Right hallux osteomyelitis for transmetatarsal amputation S/P sepsis from H[facility], grew Klebsiella in the sputum right hallux distal phalanx osteomyelitis and gangrene S/P amputation POD #15; resection margins still show necrosis and osteomyelitis ESRD on HD with left arm AV shunt DM HTN dyslipidemia Plan will give a dose of IV Vanco today and should get a dose of IV vanco prior to OR tomorrow will monitor clinically
--- NOTE | 2017-10-25 17:26 | US ---
PROCEDURE: Lower extremity RODNEY exam HISTORY: Peripheral vascular disease with right foot gangrene and ischemic pain. Recent right distal tibial intervention. Scheduled for transmetatarsal amputation PHYSICIAN(S): Blane Gonzalez MD. FINDINGS: The resting ABIs are not obtainable due to calcification The high thigh waveforms are normal and symmetric. The calf PVR waveforms have relatively normal upstrokes. However they did notch demonstrates significant augmentation. This could represent subtle SFA disease. The right ankle and metatarsal waveforms are not pulsatile. This is slightly improved from the preprocedure exam in August,. IMPRESSION: 1. Interval improvement in the right ankle and metatarsal waveforms compared to August,. 2. Possible subtle SFA disease
--- NOTE | 2017-10-25 19:05 | HP ---
HISTORY OF PRESENT ILLNESS: I saw him in dialysis today. I saw him yesterday at the [facility]. He is being sent in by Dr. Smith, the litigation attorney. He is a 67-year-old man who has plans for an amputation. He has osteomyelitis, has some foot pain, is on Percocet, and the plan is for him to come in for a planned amputation, I believe it is a transmetatarsal. PAST MEDICAL HISTORY: He has a past medical history of end-stage renal disease with hemodialysis. He has CHF, COPD, hypertension, he wears glasses, diabetes. He has diabetic wounds in both legs, both feet with toes are having problems but the right great toe needs to be amputated. He has a PICC line, right upper arm. He had a right toe amputation, the left toe is also red and inflamed. FAMILY HISTORY: Unknown. SOCIAL HISTORY: He is a former smoker. No alcohol. No drugs. ALLERGIS: NO KNOWN DRUG ALLERGIES. MEDICATIONS: He takes aspirin, Coreg, Renagel, Flomax, Tylenol, DuoNebs, amoxicillin, bacitracin, Plavix, Santyl, Prozac, insulin, Zofran, guaifenesin, and Percocet. REVIEW OF SYSTEMS: No changes in vision or hearing. No sore throat. No chest pain or palpitations. No shortness of breath or cough. No abdominal pain, nausea, vomiting, constipation, or diarrhea. He has right foot pain. He has got left foot pain. He has got skin issues in both feet. No sweating. No neurological issues. No numbness or tingling or tremors. No anxiety or depression. He is quite calm. PHYSICAL EXAMINATION: VITAL SIGNS: He has 98.8 temperature, 74 pulse, 18 respiratory rate, 99/54 blood pressure, 97% of O2 sat on room air. GENERAL: He is normal looking. He is well appearing, nontoxic, comfortable, smiling, alert and oriented x3. HEENT: His head is atraumatic, normocephalic. Pupils are equally reactive to light and accommodation. Extraocular muscles are intact. Throat is moist. NECK: Supple. CARDIOVASCULAR: Heart has regular rate. Normal S1, S2. LUNGS: Clear to auscultation bilaterally. No wheezes, rhonchi, or rales. ABDOMEN: Soft, nontender. Positive bowel sounds. No guarding, no rebound or CVA tenderness. EXTREMITIES: Right foot has had a dressing on it. NEUROLOGIC: GCS is 15. Cranial nerves II through XII grossly intact. Normal speech. DERMATOLOGIC: Poor skin on both feet. LABORATORY DATA: He has a 4.7 white count, 10.9 hemoglobin, 35.3 hematocrit with 125 platelets. He has 136 sodium, potassium 4.2, chloride 91, BUN 48, creatinine 4.3, on dialysis. GFR is 17. Sugar is 139. Calcium is 9.5, total bili is 1. Alk phos is 204. Albumin 3.5. INR is 1.27. PLAN: He was given Maxipime. He is going to have a consult with Infectious Disease and for Podiatry, Dr. Smith. He is on IV antibiotics, insulin coverage, pain medications. We will check his labs and await the amputation by Dr. Smith, the litigation attorney. Tej Dubose DO
--- NOTE | 2017-10-25 23:00 | CP.PCM.PN ---
Subjective - Date & Time of Evaluation Date of Evaluation: 10/25/17 Time of Evaluation: 22:59 - Subjective Subjective: S:Seen. Requests something for bowel movement. Has no other complaints now. Received dulcolax suppository with no help. Medical record was reviewed. O: VSS. Not in distension. A:Constipation. P:Fleet enema. Objective - Vital Signs/Intake and Output Vital Signs (last 24 hours): Temp Pulse Resp BP Pulse Ox 97.5 F L 80 16 120/70 100 10/25/17 12:10 10/25/17 18:10 10/25/17 12:10 10/25/17 18:10 10/25/17 12:10 Intake and Output: 10/25/17 03 18:59 06:59 Intake Total 600 Balance 600 - Medications Medications: Current Medications Albuterol/Ipratropium (Duoneb 3 Mg/0.5 Mg (3 Ml) Ud) 3 ml IH [id number] [facility] Last Admin: 10/25/17 21:33 Dose: 3 ml Carvedilol (Coreg) 25 mg PO BID [facility] Last Admin: 10/25/17 18:10 Dose: 25 mg Fluoxetine HCl (Prozac) 20 mg PO DAILY [facility] Last Admin: 10/25/17 13:43 Dose: 20 mg Guaifenesin/Dextromethorphan (Robitussin Dm) 5 ml PO Q4H PRN PRN Reason: Cough Insulin Human Regular (Humulin R Med) 0 units SC ACHS [facility] PRN Reason: Protocol Last Admin: 10/25/17 21:38 Dose: Not Given Ketorolac Tromethamine (Toradol) 30 mg IVP Q6 PRN PRN Reason: Pain, severe (8-10) Last Admin: 10/25/17 18:29 Dose: 30 mg Oxycodone/Acetaminophen (Percocet 5/325 Mg Tab) 1 tab PO Q6H PRN PRN Reason: Pain, moderate (4-7) Stop: 10/28/17 12:37 Sevelamer HCl (Renagel) 800 mg PO TID [facility] Last Admin: 10/25/17 18:10 Dose: 800 mg Tamsulosin HCl (Flomax) 0.4 mg PO DAILY [facility] Last Admin: 10/25/17 13:43 Dose: 0.4 mg - Labs Labs: 10/25/17 05:30 10/25/17 05:30 PT 14.5 SECONDS (9.4-12.5) H 10/24/17 15:54 INR 1.27 (0.93-1.08) H 10/24/17 15:54 APTT 31.4 Seconds (25.1-36.5) 10/24/17 15:54
[2017-10-26] MEDS: Albuterol-Ipratrop 3 mg / 0.5 (3 ml) UD IH SCH ×5 (03:15→20:46)
[2017-10-26] MEDS ORDERED: Lidocaine 2% Inj (20ml) ONE ×2 (07:12→08:44)
--- NOTE | 2017-10-26 07:32 | CP.PCM.PN ---
Subjective - Date & Time of Evaluation Date of Evaluation: 10/26/17 Time of Evaluation: 07:00 - Subjective Subjective: Podiatry Pre-operative Note- Dr. Smith 67 year old male patient PMHx ESRD on HD MWF, DM, HTN, COPD, hx of OM seen and evaluated at bedside for right foot ischemia and gangrene to 1st and 2nd digits Patient will go to the OR this morning for a right transmetatarsal amputation by Dr. Smith. Patient understands and is agreeable. Patient denies n/v/sob/cp/ chills/f or d. Patient reports nothing to eat or drink since yesterday. Objective - Vital Signs/Intake and Output Vital Signs (last 24 hours): Temp Pulse Resp BP Pulse Ox 97.5 F L 80 16 120/70 100 10/25/17 12:10 10/25/17 18:10 10/25/17 12:10 10/25/17 18:10 10/25/17 12:10 Intake and Output: 10/26/17 10/26/17 06:59 18:59 Intake Total 600 Balance 600 - Medications Medications: Current Medications Albuterol/Ipratropium (Duoneb 3 Mg/0.5 Mg (3 Ml) Ud) 3 ml IH [id number] [facility] Last Admin: 10/26/17 03:15 Dose: 3 ml Carvedilol (Coreg) 25 mg PO BID [facility] Last Admin: 10/25/17 18:10 Dose: 25 mg Fluoxetine HCl (Prozac) 20 mg PO DAILY [facility] Last Admin: 10/25/17 13:43 Dose: 20 mg Guaifenesin/Dextromethorphan (Robitussin Dm) 5 ml PO Q4H PRN PRN Reason: Cough Insulin Human Regular (Humulin R Med) 0 units SC ACHS [facility] PRN Reason: Protocol Last Admin: 10/25/17 21:38 Dose: Not Given Ketorolac Tromethamine (Toradol) 30 mg IVP Q6 PRN PRN Reason: Pain, severe (8-10) Last Admin: 10/25/17 18:29 Dose: 30 mg Oxycodone/Acetaminophen (Percocet 5/325 Mg Tab) 1 tab PO Q6H PRN PRN Reason: Pain, moderate (4-7) Stop: 10/28/17 12:37 Sevelamer HCl (Renagel) 800 mg PO TID [facility] Last Admin: 10/25/17 18:10 Dose: 800 mg Tamsulosin HCl (Flomax) 0.4 mg PO DAILY [facility] Last Admin: 10/25/17 13:43 Dose: 0.4 mg - Labs Labs: 10/25/17 05:30 10/25/17 05:30 PT 14.5 SECONDS (9.4-12.5) H 10/24/17 15:54 INR 1.27 (0.93-1.08) H 10/24/17 15:54 APTT 31.4 Seconds (25.1-36.5) 10/24/17 15:54 - Constitutional Appears: Well, Non-toxic, No Acute Distress - Extremities Exam Additional comments: Dressing is c/d/i without strikethrough - Neurological Exam Neurological Exam: Alert, Awake, Oriented x3 Assessment and Plan - Assessment and Plan (Free Text) Assessment: 67 year old male patient PMHx ESRD on HD MWF, DM, HTN, COPD, hx of OM with right foot ischemia and gangrene to 1st and 2nd digits going to OR for right foot transmetatarsal amputation. Plan: Pt was seen and examined Pt NPO status was confirmed All pre-op testing and clearance in chart Pt has exhausted all conservative treatment at this time and is opting for surgical intervention Pt was explained procedure and post-operative course All pt's questions were answered to satisfaction No guarantees were made Pt understands all risks, benefits and complications of procedure Podiatry will continue to follow while in house
[2017-10-26 07:54] LABS: HEMOGLOBIN 10.8 g/dL (14.0-18.0); MEAN CORPUSCULAR HEMOGLOBIN 29.8 pg (25.0-35.0); MEAN CORPUSCULAR HGB CONC 30.7 g/dl (31.0-37.0); MEAN PLATELET VOLUME 13.3 fl (7.0-11.0); RBC 3.63 10^6/uL (3.5-6.1); RED CELL DISTRIBUTION WIDTH 16.7 % (11.5-14.5); WHITE BLOOD COUNT 10.1 10^3/ul (4.5-11.0)
[2017-10-26] MEDS: Insulin Reg-MEDIUM-Coverage SC SCH ×4 (08:16→23:01)
[2017-10-26] MEDS ORDERED: Propofol 10 mg/ml Inj (20 ML) ONE ×2 (08:19→08:20)
[2017-10-26] MEDS ORDERED: Midazolam 2 MG/2 ML VIAL ONE ×2 (08:19→08:44)
[2017-10-26] MEDS ORDERED: Gentamicin 80 mg/2mL Inj. ONE (08:28)
[2017-10-26 08:53] LABS: ALB/GLOB RATIO 1.1 (1.1-1.8); ALBUMIN 3.3 g/dL (3.0-4.8); CALCIUM 9.4 mg/dL (8.4-10.5)
[2017-10-26] MEDS ORDERED: HYDROmorphone 0.5 mg/0.5 ml ISec IVP PRN (09:49)
[2017-10-26] MEDS ORDERED: Lactated Ringer's 1,000 ML IV SCH (10:00)
--- NOTE | 2017-10-26 10:00 | PCM.SURG1 ---
Surgeon's Initial Post Op Note - Surgeon's Notes Surgeon: Dr. Smith, DPM Route Driver Salesperson: Dr. Villanueva PGY-1 DPM Type of Anesthesia: IV Sedation, Local Anesthesia Administered By: Dr. Levin Pre-Operative Diagnosis: right foot gangrene Operative Findings: see dictation 3-0 vicryl, 3-0 nylon, intraoperative injectables: 17 cc of 2% lidocaine plain Post-Operative Diagnosis: right foot gangrene Operation Performed: right foot transmetatarsal amputation Specimen/Specimens Removed: 1. bone and soft tissue 2. wound culture Estimated Blood Loss: EBL {In ML}: 150 Blood Products Given: N/A Drains Used: Jeremy Alvarado Date of Surgery/Procedure: 10/26/17 Time of Surgery/Procedure: 07:45
--- NOTE | 2017-10-26 11:23 | RAD ---
PROCEDURE: Right foot three views portable HISTORY: s/p right foot surgery COMPARISON: TECHNIQUE: Three views portable FINDINGS: There has been amputation at the level of the proximal metatarsals of all 5 digits. A surgical drain and surgical clips are in place. IMPRESSION: As above
[2017-10-26] MEDS ORDERED: Benzocaine/Menthol (Cepacol) Lozenge MT PRN (11:46)
--- NOTE | 2017-10-26 14:06 | PN ---
DATE: SUBJECTIVE: He is back from surgery. He had procedure of his foot with amputation. He has Coreg, Dilaudid, DuoNebs, Flomax, insulin, lactated Ringers, Percocet, Prozac, Renagel, Robitussin and Tylenol. PHYSICAL EXAMINATION GENERAL: He is alert. He is comfortable. He said he need something for his throat. He wants lozenges, I will order him lozenges. VITAL SIGNS: He has 97.3 temperature, pulse 69, blood pressure 111/78, respiratory rate 14 and 100% O2 saturation on 3 L of nasal cannula. HEENT: Head: Atraumatic, normocephalic. The throat is moist. I do not see any redness, but will get him lozenges. NECK: Supple. No palpable lymphadenopathy. HEART: Regular rate. LUNGS: Decreased breath sounds, but clear. ABDOMEN: Soft. EXTREMITIES: His foot is bandaged. MEDICATIONS: He is currently on Coreg, Dilaudid, DuoNebs, Flomax, insulin, lactated Ringers, Percocet, Prozac, Renagel, Robitussin and Tylenol. LABORATORY DATA: He has white count 10.1, hemoglobin 10.8, hematocrit 35.2 and platelets 120. He has sodium 137, potassium 4.8, BUN 44, creatinine 2.7, GFR is 17, blood sugar was 184, calcium is 9.4, total bili is 1. AST is 25, ALT is 22, alkaline phosphatase 207, total protein is 6.1. We will watch overnight, status post surgery. I am hoping possibly, he could be discharged tomorrow back to [facility] for subacute rehab. He is being seen by Infectious Disease, Podiatry and Dr. Agarwal, who is his kidney doctor. We will continue with aggressive treatment and care. Check his labs tomorrow. I will order him lozenges, Cepacol. Tej Dubose DO
[2017-10-26] MEDS: Magnesium Hydroxide Susp 30 ml UD PO PRN (16:30)
--- NOTE | 2017-10-26 18:29 | CON ---
DATE: 10/26/2017 REFERRING PHYSICIAN: Tej Dubose DO. REASON FOR CONSULTATION: End-stage renal disease, on hemodialysis; hypertension management. CHIEF COMPLAINT AN HISTORY OF PRESENT ILLNESS: This is a 67-year-old male who is well known to me, who I see for his dialysis. He was sent to [facility] for subacute rehab. He was seeing Dr. Dubose at the facility with Dr. Robles, taking care of his dialysis issues. The patient has been brought into the hospital because he was having right foot ischemia and gangrene of his first and second digits. He is going for surgery today. He was dialyzed yesterday. The patient was complaining of significant pain. He states it was 10/10; nothing was relieving the pain including pain medications. The patient has been struggling with peripheral arterial disease and foot ulcers that have not healed. The patient has been followed by Dr. Smith. He has no fevers or chills. No nausea. No vomiting. No dysuria or frequency. No nocturia. He states he is not able to walk because of the pain and the weakness that he has. He does have a supportive that has been involved in his care. REVIEW OF SYSTEMS: All of the review of symptoms are within normal limits except what was mentioned. PAST MEDICAL HISTORY: 1. End-stage renal disease, on hemodialysis. 2. Peripheral arterial disease. 3. Right toe gangrene. 4. Diabetes type 2. 5. Chronic anemia. 6. Secondary hyperparathyroidism. 7. Gait dysfunction. 8. Frailty. SOCIAL HISTORY: He does not smoke, drink, or use drugs. FAMILY HISTORY: Noncontributory. MEDICATIONS: His medications has been reviewed on the [facility]. PHYSICAL EXAMINATION: VITAL SIGNS: He has a temperature of 97.5, pulse is 74, his GENERAL: The patient lying in bed, uncomfortable, and in no acute distress. HEENT: Atraumatic and normocephalic. Anicteric sclerae. Moist mucosa. [place] conjunctivae. No oral lesions. NECK: No JVD, anterior and posterior adenopathy, thyromegaly, or bruits. CARDIOVASCULAR: S1 and S2 regular. No murmur, rubs, or gallop. LUNGS: Clear to auscultation bilaterally. No wheezes, rales, or rhonchi. ABDOMEN: Bowel sounds are positive. Soft, nontender and nondistended. No hepatosplenomegaly. No rebound and no guarding. EXTREMITIES: No cyanosis, clubbing, or edema. In the right foot, there is no palpable pulse. He has dry gangrene that is on the second digit of his toe. Left AV fistula with good thrill and bruit. NEUROLOGIC: No facial asymmetry. Tongue is midline. No uvula deviation. Power is 5/5 upper extremity and lower extremity. Sensation intact in upper extremity and lower extremity. PSYCHIATRIC: He is awake, alert and oriented x3. No anxiety or depression. He has normal affect. GENITOURINARY: No CVA tenderness. VASCULAR: 2+ pulses in the carotid pulses and pedal pulses. SKIN: No erythema or nodules. SPINE: Shows normal curvature. LABORATORY DATA: He has a white count of 5.6, hemoglobin is 10.6, platelet count is 119. INR is 1.27. His chemistry shows a creatinine of 4.8. He has phosphorus of 4.5, alk phos of 186. His glucose is 91. His chest x-ray shows no active disease. His EKG shows sinus rhythm at 73 with low-voltage QRS. His lower extremity arterial Doppler shows interval improvement of the right ankle and metatarsal waveforms, compared to 08/2017. ASSESSMENT: 1. Gangrene of right second toe. 2. End-stage renal disease, on hemodialysis, Monday, Monday, and Monday. 3. Hypertension. 4. Dyslipidemia. 5. Diabetes type 2. 6. Peripheral arterial disease. 7. Left arteriovenous fistula. 8. Secondary hyperparathyroidism. 9. Frailty. 10. Gait dysfunction. 11. Right tibial angioplasty with stent. PLAN: The patient is going to be admitted to the hospital. He is going for a transmetatarsal amputation today. He had dialysis yesterday. I did speak to the dialysis nurse and he had no issues. The patient is on carvedilol, it is going to be continued. He is on Duoneb treatments. He is on oxycodone for pain. He is on Prozac for his depression. He is on Renagel; this will be continued for his secondary hyperparathyroidism. He should be on a renal diet after he had surgery and is able to eat. The patient will have dialysis again tomorrow. He has also had angioplasty of his right tibial artery. The patient does have a history of osteomyelitis; he is being followed by Infectious Disease. We will continue to manage the patient's dialysis. His blood pressure is controlled. If he returns to [facility], he will be followed by Dr. Robles for his dialysis. Once discharged, I will continue to follow him in the dialysis unit here in [facility]. Maurice Agarwal MD
[2017-10-27] MEDS: Albuterol-Ipratrop 3 mg / 0.5 (3 ml) UD IH SCH ×4 (02:30→19:54)
[2017-10-27] MEDS: Oxycodone/Acetaminophen 5/325 mg Tab PO PRN ×3 (05:37→23:00)
[2017-10-27] MEDS ORDERED: Sodium Chloride 0.9% 500 ML IV STA (08:01)
[2017-10-27] MEDS ORDERED: Vancomycin 500mg in NS 500 MG/100 ML BAG IVPB STA (08:24)
--- NOTE | 2017-10-27 08:31 | PN ---
DATE: SUBJECTIVE: I saw him resting comfortably in bed. He had a transmet that was done yesterday on his right foot. He is in very little pain. He has got oxygen on. PHYSICAL EXAMINATION: VITAL SIGNS: He has a 97.3 temp, 69 pulse, 111/78 blood pressure, 14 respiratory rate, 100% O2 sat on 3 L nasal cannula. HEENT: His head is atraumatic, normocephalic. HEART: Regular rate. LUNGS: Clear to auscultation. ABDOMEN: Soft. EXTREMITIES: Without edema. He has got the right foot bandaged. Transmet was done and the drain was pulled out accidentally, I was told. LABORATORY DATA: He has a 137 sodium, potassium 4.8, BUN 44, creatinine 3.7, sugar is 223, calcium is 9.4. The total bili is 1, AST is 25, ALT is 22, alk phos 207, total protein 6.1. 10.1 white count, 10.8 hemoglobin, 35.2 hematocrit with 120 platelets. MEDICATIONS: He is on Cepacol, Coreg, DuoNeb, Flomax, insulin, milk of magnesia, Percocet, Prozac, Renagel, Robitussin, IV fluid and Tylenol. ASSESSMENT AND PLAN: He has been seen by Surgery and Renal. Infectious Disease saw him about 3 to 4 days ago. I am not sure if he needs to be on IV antibiotics and for how long and then the care at possibly [facility]. If it is okay with Podiatry, I would discharge him back to [facility]. See what they say. I will talk to them later. In the meantime, I will continue aggressive treatment and care. Tej Dubose DO
[2017-10-27] MEDS: Insulin Reg-MEDIUM-Coverage SC SCH ×4 (08:34→22:38)
[2017-10-27 10:03] LABS: BASO # 0.01 K/mm3 (0.0-2.0); BASO % 0.1 % (0.0-3.0); EOS # 0.1 (0.0-0.7); EOS % 0.7 % (1.5-5.0); GRAN # 7.47 (1.4-6.5); GRAN % 78.5 % (50.0-68.0); HEMOGLOBIN 9.5 g/dL (14.0-18.0); LYMPH # 1.1 (1.2-3.4); MEAN CELL VOLUME 96.8 fl (80.0-105.0); MEAN CORPUSCULAR HEMOGLOBIN 30.6 pg (25.0-35.0); MEAN CORPUSCULAR HGB CONC 31.7 g/dl (31.0-37.0); MEAN PLATELET VOLUME 12.6 fl (7.0-11.0); MONO # 0.9 (0.1-0.6); MONO % 9.7 % (1.0-6.0); RBC 3.1 10^6/uL (3.5-6.1); WHITE BLOOD COUNT 9.5 10^3/ul (4.5-11.0)
[2017-10-27] MEDS: Magnesium Hydroxide Susp 30 ml UD PO PRN (10:12)
[2017-10-27 10:15] LABS: ALB/GLOB RATIO 1.1 (1.1-1.8); ALBUMIN 2.9 g/dL (3.0-4.8); CALCIUM 9.2 mg/dL (8.4-10.5)
[2017-10-27] MEDS ORDERED: Darbepoetin Alfa 100 mcg/ml Inj IVP ONE (11:07)
--- NOTE | 2017-10-27 11:26 | PN ---
DATE: SUBJECTIVE: This is a Nephrology followup for this patient who had right TMA done yesterday. The patient has no complaints of any chest pain. No shortness of breath. No headaches or dizziness. PHYSICAL EXAMINATION VITAL SIGNS: Temperature is 97.2, pulse is 69, blood pressure is 111/78, respirations 14. GENERAL: The patient is lying in bed, flat, comfortable. HEENT: No oral lesion. Anicteric sclerae. Moist mucosa. NECK: No JVD, adenopathy, or thyromegaly. CARDIOVASCULAR: S1 and S2, regular. No murmurs, rubs, or gallops. LUNGS: Clear to auscultation bilaterally. No wheeze, rales, or rhonchi. ABDOMEN: Bowel sounds are positive. Soft, nontender and nondistended. EXTREMITIES: In the right foot, there is a dressing in place. There is a MERCED drain present. ASSESSMENT 1. Right foot transmetatarsal amputation, postop day #1. 2. End-stage renal disease, on hemodialysis Monday, Monday, and Monday. 3. Secondary hyperparathyroidism. 4. Hypertension. 5. Dyslipidemia. 6. Diabetes type 2. 7. Peripheral arterial disease. 8. Left arm arteriovenous fistula. 9. Frailty. 10. Gait dysfunction. 11. History of right tibial angioplasty with stent. PLAN: The patient is currently comfortable. He is going to continue his dialysis, which is due today. The patient is on Renagel for his secondary hyperparathyroidism. He is receiving nebulizer treatments. He is on Flomax. The patient is on Prozac for his anxiety and depression. He is getting local wound care. His pain is controlled with Percocet. He is on a renal diet. The patient is going to continue with dialysis once he goes back to subacute rehab at [facility]. No other renal issues per my perspective. The patient can be cleared to go to [facility] once the patient's primary and Podiatry clear him to be stable enough to be discharged. Maurice Agarwal MD
--- NOTE | 2017-10-27 19:15 | CP.PCM.PN ---
Subjective - Date & Time of Evaluation Date of Evaluation: 10/26/17 Time of Evaluation: 10:40 - Subjective Subjective: Comfortable, no fevers. Objective - Vital Signs/Intake and Output Vital Signs (last 24 hours): Temp Pulse Resp BP Pulse Ox 97.7 F 76 18 130/62 100 10/26/17 08:39 10/26/17 08:39 10/26/17 08:39 10/26/17 08:39 10/26/17 08:39 Intake and Output: 10/26/17 10/26/17 06:59 18:59 Intake Total 600 Balance 600 - Medications Medications: Current Medications Albuterol/Ipratropium (Duoneb 3 Mg/0.5 Mg (3 Ml) Ud) 3 ml IH [id number] [facility] Last Admin: 10/26/17 07:34 Dose: Not Given Carvedilol (Coreg) 25 mg PO BID [facility] Last Admin: 10/25/17 18:10 Dose: 25 mg Fluoxetine HCl (Prozac) 20 mg PO DAILY [facility] Last Admin: 10/25/17 13:43 Dose: 20 mg Guaifenesin/Dextromethorphan (Robitussin Dm) 5 ml PO Q4H PRN PRN Reason: Cough Insulin Human Regular (Humulin R Med) 0 units SC ACHS [facility] PRN Reason: Protocol Last Admin: 10/26/17 08:16 Dose: Not Given Ketorolac Tromethamine (Toradol) 30 mg IVP Q6 PRN PRN Reason: Pain, severe (8-10) Last Admin: 10/25/17 18:29 Dose: 30 mg Oxycodone/Acetaminophen (Percocet 5/325 Mg Tab) 1 tab PO Q6H PRN PRN Reason: Pain, moderate (4-7) Stop: 10/28/17 12:37 Sevelamer HCl (Renagel) 800 mg PO TID [facility] Last Admin: 10/25/17 18:10 Dose: 800 mg Tamsulosin HCl (Flomax) 0.4 mg PO DAILY [facility] Last Admin: 10/25/17 13:43 Dose: 0.4 mg - Labs Labs: 10/26/17 07:40 10/26/17 07:40 PT 14.5 SECONDS (9.4-12.5) H 10/24/17 15:54 INR 1.27 (0.93-1.08) H 10/24/17 15:54 APTT 31.4 Seconds (25.1-36.5) 10/24/17 15:54 - Constitutional Appears: Chronically Ill - Head Exam Head Exam: NORMAL INSPECTION - ENT Exam ENT Exam: Mucous Membranes Moist - Neck Exam Neck Exam: absent: Meningismus - Respiratory Exam Respiratory Exam: Decreased Breath Sounds - Cardiovascular Exam Cardiovascular Exam: +S1, +S2 - GI/Abdominal Exam GI & Abdominal Exam: Soft. absent: Tenderness Assessment and Plan - Assessment and Plan (Free Text) Plan: Assessment Right hallux osteomyelitis S/P transmetatarsal amputation POD #1 S/P sepsis from HCAP, grew Klebsiella in the sputum right hallux distal phalanx osteomyelitis and gangrene S/P amputation POD #15; resection margins still show necrosis and osteomyelitis ESRD on HD with left arm AV shunt DM HTN dyslipidemia Plan continue intermittent IV Vancomycin (every dialysis session) pending OR cx and pathology will monitor clinically
[2017-10-28] MEDS: Albuterol-Ipratrop 3 mg / 0.5 (3 ml) UD IH SCH ×5 (02:19→20:55)
[2017-10-28] MEDS: Insulin Reg-MEDIUM-Coverage SC SCH ×4 (08:08→22:07)
[2017-10-28 08:16] LABS: HEMOGLOBIN 9.3 g/dL (14.0-18.0); MEAN CELL VOLUME 96.5 fl (80.0-105.0); MEAN CORPUSCULAR HEMOGLOBIN 29.5 pg (25.0-35.0); MEAN CORPUSCULAR HGB CONC 30.6 g/dl (31.0-37.0); RBC 3.15 10^6/uL (3.5-6.1); RED CELL DISTRIBUTION WIDTH 17.1 % (11.5-14.5); WHITE BLOOD COUNT 7.5 10^3/ul (4.5-11.0)
[2017-10-28 08:27] LABS: ALBUMIN 2.9 g/dL (3.0-4.8); CALCIUM 8.9 mg/dL (8.4-10.5)
[2017-10-28] MEDS: Magnesium Hydroxide Susp 30 ml UD PO PRN (11:03)
[2017-10-28] MEDS: Oxycodone/Acetaminophen 5/325 mg Tab PO PRN (11:03)
--- NOTE | 2017-10-28 11:04 | CP.PCM.PN ---
<Boone Powell - Last Filed: 10/28/17 10:57> Subjective - Date & Time of Evaluation Date of Evaluation: 10/28/17 Time of Evaluation: 08:20 - Subjective Subjective: Podiatry Progress Note- Dr. Vargas 67 year old male seen and evaluated at bedside POD #3 s/p right trans- metatarsal amputation. Patient reports pain is well controlled. Patient denies n /v/sob/cp/chills/f or d, nor any acute overnight events. Patient reports nothing to eat or drink since yesterday. Objective - Vital Signs/Intake and Output Vital Signs (last 24 hours): Temp Pulse Resp BP Pulse Ox 97.7 F 68 20 103/59 L 98 10/28/17 06:00 10/28/17 10:09 10/28/17 06:00 10/28/17 10:09 10/28/17 06:00 Intake and Output: 10/28/17 10/28/17 06:59 18:59 Intake Total 0 Balance 0 - Medications Medications: Current Medications Acetaminophen (Tylenol 325mg Tab) 325 mg PO Q4H PRN PRN Reason: Pain, Mild (1-3) Albuterol/Ipratropium (Duoneb 3 Mg/0.5 Mg (3 Ml) Ud) 3 ml IH [id number] [facility] Last Admin: 10/28/17 07:52 Dose: 3 ml Benzocaine/Menthol (Cepacol Sore Throat) 1 missy MT Q2H PRN PRN Reason: Sore Throat Carvedilol (Coreg) 25 mg PO BID [facility] Last Admin: 10/28/17 10:09 Dose: Not Given Fluoxetine HCl (Prozac) 20 mg PO DAILY [facility] Last Admin: 10/28/17 10:08 Dose: 20 mg Guaifenesin/Dextromethorphan (Robitussin Dm) 5 ml PO Q4H PRN PRN Reason: Cough Insulin Human Regular (Humulin R Med) 0 units SC ACHS [facility] PRN Reason: Protocol Last Admin: 10/28/17 08:08 Dose: Not Given Magnesium Hydroxide (Milk Of Magnesia) 30 ml PO DAILY PRN PRN Reason: Constipation Last Admin: 10/27/17 10:12 Dose: 30 ml Oxycodone/Acetaminophen (Percocet 5/325 Mg Tab) 1 tab PO Q4H PRN PRN Reason: Pain, moderate (4-7) Stop: 10/29/17 09:51 Last Admin: 10/27/17 14:44 Dose: 1 tab Oxycodone/Acetaminophen (Percocet 5/325 Mg Tab) 2 tab PO Q4H PRN PRN Reason: Pain, severe (8-10) Stop: 10/29/17 09:51 Last Admin: 10/27/17 23:00 Dose: 2 tab Sevelamer HCl (Renagel) 800 mg PO TID [facility] Last Admin: 10/28/17 10:08 Dose: 800 mg Tamsulosin HCl (Flomax) 0.4 mg PO DAILY [facility] Last Admin: 10/28/17 10:08 Dose: 0.4 mg - Labs Labs: 10/28/17 07:00 10/28/17 07:00 PT 14.5 SECONDS (9.4-12.5) H 10/24/17 15:54 INR 1.27 (0.93-1.08) H 10/24/17 15:54 APTT 31.4 Seconds (25.1-36.5) 10/24/17 15:54 - Constitutional Appears: Well, Non-toxic, No Acute Distress - Extremities Exam Additional comments: Right foot focused. Dressings c/d/i. MERCED drain removed. DERM: Right foot trans-metatarsal amputation amputation site noted with all sutures and cooper intact. No productive drainage or fluctuance. Flap site is cool to touch. VASC: DP and PT pulses non-palpable secondary to edema. CFT unable to be assessed to 2nd digit, delayed to digits 3,4,5. Temperature gradient cool to cool from proximal to distal. +2 pitting edema noted to lower extremity. NEURO: Gross sensation diminished. - Neurological Exam Neurological Exam: Alert, Awake, Oriented x3 - Psychiatric Exam Psychiatric exam: Normal Affect, Normal Mood Assessment and Plan - Assessment and Plan (Free Text) Assessment: 67 year old male patient POD #3 s/p right TMA. Plan: Patient seen and evaluated at bedside with attending, Dr. Vargas. Chart, labs, and vitals reviewed. Afebrile, absent leukocytosis. Cleansed wound site with saline. Dressed with betadine, adaptic, and DSD. Podiatry will continue to follow while inhouse. Pt to remains NWB with aid of axillary crutches. Pt has not completed initial PT due to refusing to perform training. Podiatry will continue to follow while inhouse. <Mercedes Vargasgabrielle - Last Filed: 10/28/17 17:46> Objective - Vital Signs/Intake and Output Vital Signs (last 24 hours): Temp Pulse Resp BP Pulse Ox 97.3 F L 69 19 90/63 L 100 10/28/17 17:41 10/28/17 17:41 10/28/17 17:41 10/28/17 17:41 10/28/17 17:41 Intake and Output: 10/28/17 10/28/17 06:59 18:59 Intake Total 600 Output Total 0 Balance 600 - Medications Medications: Current Medications Acetaminophen (Tylenol 325mg Tab) 325 mg PO Q4H PRN PRN Reason: Pain, Mild (1-3) Albuterol/Ipratropium (Duoneb 3 Mg/0.5 Mg (3 Ml) Ud) 3 ml IH [id number] [facility] Last Admin: 10/28/17 12:59 Dose: Not Given Benzocaine/Menthol (Cepacol Sore Throat) 1 missy MT Q2H PRN PRN Reason: Sore Throat Carvedilol (Coreg) 25 mg PO BID [facility] Last Admin: 10/28/17 17:11 Dose: Not Given Fluoxetine HCl (Prozac) 20 mg PO DAILY [facility] Last Admin: 10/28/17 10:08 Dose: 20 mg Guaifenesin/Dextromethorphan (Robitussin Dm) 5 ml PO Q4H PRN PRN Reason: Cough Insulin Human Regular (Humulin R Med) 0 units SC ACHS [facility] PRN Reason: Protocol Last Admin: 10/28/17 17:10 Dose: 1 units Magnesium Hydroxide (Milk Of Magnesia) 30 ml PO DAILY PRN PRN Reason: Constipation Last Admin: 10/28/17 11:03 Dose: 30 ml Oxycodone/Acetaminophen (Percocet 5/325 Mg Tab) 1 tab PO Q4H PRN PRN Reason: Pain, moderate (4-7) Stop: 10/29/17 09:51 Last Admin: 10/28/17 11:03 Dose: 1 tab Oxycodone/Acetaminophen (Percocet 5/325 Mg Tab) 2 tab PO Q4H PRN PRN Reason: Pain, severe (8-10) Stop: 10/29/17 09:51 Last Admin: 10/27/17 23:00 Dose: 2 tab Sevelamer HCl (Renagel) 800 mg PO TID [facility] Last Admin: 10/28/17 17:10 Dose: 800 mg Tamsulosin HCl (Flomax) 0.4 mg PO DAILY [facility] Last Admin: 10/28/17 10:08 Dose: 0.4 mg - Labs Labs: 10/28/17 07:00 10/28/17 07:00 PT 14.5 SECONDS (9.4-12.5) H 10/24/17 15:54 INR 1.27 (0.93-1.08) H 10/24/17 15:54 APTT 31.4 Seconds (25.1-36.5) 10/24/17 15:54 Attending/Attestation - Attestation I have personally seen and examined this patient.: Yes I have fully participated in the care of the patient.: Yes I have reviewed all pertinent clinical information, including history, physical exam and plan: Yes
--- NOTE | 2017-10-28 17:17 | CP.PCM.PN ---
Subjective - Date & Time of Evaluation Date of Evaluation: 10/28/17 Time of Evaluation: 11:30 - Subjective Subjective: Comfortable in bed, no fevers. Objective - Vital Signs/Intake and Output Vital Signs (last 24 hours): Temp Pulse Resp BP Pulse Ox 97.5 F L 67 20 94/62 L 100 10/27/17 08:49 10/27/17 10:03 10/27/17 08:49 10/27/17 10:03 10/27/17 08:49 Intake and Output: 10/27/17 10/28/17 18:59 06:59 Intake Total 480 Output Total 0 Balance 480 - Medications Medications: Current Medications Acetaminophen (Tylenol 325mg Tab) 325 mg PO Q4H PRN PRN Reason: Pain, Mild (1-3) Albuterol/Ipratropium (Duoneb 3 Mg/0.5 Mg (3 Ml) Ud) 3 ml IH [id number] [facility] Last Admin: 10/27/17 13:12 Dose: Not Given Benzocaine/Menthol (Cepacol Sore Throat) 1 missy MT Q2H PRN PRN Reason: Sore Throat Carvedilol (Coreg) 25 mg PO BID [facility] Last Admin: 10/27/17 17:31 Dose: Not Given Fluoxetine HCl (Prozac) 20 mg PO DAILY [facility] Last Admin: 10/27/17 10:08 Dose: 20 mg Guaifenesin/Dextromethorphan (Robitussin Dm) 5 ml PO Q4H PRN PRN Reason: Cough Insulin Human Regular (Humulin R Med) 0 units SC [facility] PRN Reason: Protocol Last Admin: 10/27/17 17:31 Dose: 1 units Magnesium Hydroxide (Milk Of Magnesia) 30 ml PO DAILY PRN PRN Reason: Constipation Last Admin: 10/27/17 10:12 Dose: 30 ml Oxycodone/Acetaminophen (Percocet 5/325 Mg Tab) 1 tab PO Q4H PRN PRN Reason: Pain, moderate (4-7) Stop: 10/29/17 09:51 Last Admin: 10/27/17 14:44 Dose: 1 tab Oxycodone/Acetaminophen (Percocet 5/325 Mg Tab) 2 tab PO Q4H PRN PRN Reason: Pain, severe (8-10) Stop: 10/29/17 09:51 Sevelamer HCl (Renagel) 800 mg PO TID [facility] Last Admin: 10/27/17 17:31 Dose: 800 mg Tamsulosin HCl (Flomax) 0.4 mg PO DAILY [facility] Last Admin: 10/27/17 10:08 Dose: 0.4 mg - Labs Labs: 10/27/17 09:50 10/27/17 09:50 PT 14.5 SECONDS (9.4-12.5) H 10/24/17 15:54 INR 1.27 (0.93-1.08) H 10/24/17 15:54 APTT 31.4 Seconds (25.1-36.5) 10/24/17 15:54 - Constitutional Appears: Chronically Ill - Head Exam Head Exam: NORMAL INSPECTION - Neck Exam Neck Exam: absent: Meningismus - Respiratory Exam Respiratory Exam: Decreased Breath Sounds - Cardiovascular Exam Cardiovascular Exam: +S1, +S2 - GI/Abdominal Exam GI & Abdominal Exam: Soft. absent: Tenderness Assessment and Plan - Assessment and Plan (Free Text) Plan: Assessment Right hallux osteomyelitis S/P transmetatarsal amputation POD #2 S/P sepsis from HCAP, grew Klebsiella in the sputum right hallux distal phalanx osteomyelitis and gangrene S/P amputation POD #15; resection margins still show necrosis and osteomyelitis ESRD on HD with left arm AV shunt DM HTN dyslipidemia Plan continue intermittent IV Vancomycin (every dialysis session) pending OR cx and pathology will continue to monitor clinically
[2017-10-29] MEDS: Oxycodone/Acetaminophen 5/325 mg Tab PO PRN ×3 (00:37→15:28)
[2017-10-29] MEDS: Albuterol-Ipratrop 3 mg / 0.5 (3 ml) UD IH SCH ×4 (02:40→20:19)
[2017-10-29 07:35] LABS: HEMOGLOBIN 9.8 g/dL (14.0-18.0); MEAN CELL VOLUME 98.5 fl (80.0-105.0); MEAN CORPUSCULAR HEMOGLOBIN 30.3 pg (25.0-35.0); MEAN CORPUSCULAR HGB CONC 30.8 g/dl (31.0-37.0); MEAN PLATELET VOLUME 12.3 fl (7.0-11.0); RBC 3.23 10^6/uL (3.5-6.1); RED CELL DISTRIBUTION WIDTH 17.2 % (11.5-14.5); WHITE BLOOD COUNT 6.9 10^3/ul (4.5-11.0)
[2017-10-29 07:41] LABS: ALB/GLOB RATIO 1.1 (1.1-1.8); ALBUMIN 2.9 g/dL (3.0-4.8); CALCIUM 8.9 mg/dL (8.4-10.5)
[2017-10-29] MEDS: Insulin Reg-MEDIUM-Coverage SC SCH ×4 (08:20→22:25)
--- NOTE | 2017-10-29 10:45 | PN ---
DATE: SUBJECTIVE: He is comfortably resting in bed, slept well. He had a transmet on the right foot. He has had end-stage renal disease on hemodialysis, diabetes, hypertension and he had osteomyelitis, which was removed with transmet. He is being seen by Infectious Disease, Podiatry, Renal. PHYSICAL EXAMINATION VITAL SIGNS: He has a 97.3 temp, 67 pulse, 103/69 blood pressure, 20 respiratory rate, 100% O2 sat on room air. HEENT: Head: Atraumatic, normocephalic. HEART: Regular rate. LUNGS: Decreased breath sounds, but clear. ABDOMEN: Soft. EXTREMITIES: The right foot is bandaged. MEDICATIONS: He is on Cepacol, Coreg, DuoNeb, Flomax, insulin, milk of magnesia, Percocet, Prozac, Renagel, Robitussin, Tylenol and he does get vancomycin. LABORATORY DATA: He has a 137 sodium, potassium 5, BUN is 60, creatinine 4.8 on dialysis. GFR is 12, blood sugar is 181, calcium 8.9, AST is 18, ALT is 25, alkaline phosphatase 177. I will adjust his diabetes medications 150 to 216. His INR is 1.27. He has a 6.9 white count, 9.8 hemoglobin, 31.8 hematocrit, 147 platelets. I am hoping tomorrow we can get him back to subacute rehab at [facility], where he came from and we will continue aggressive treatment and care, get him out of bed to chair. Tej Dubose DO MTDD
[2017-10-29] MEDS: Magnesium Hydroxide Susp 30 ml UD PO PRN (15:34)
--- NOTE | 2017-10-29 16:52 | CP.PCM.PN ---
Subjective - Date & Time of Evaluation Date of Evaluation: 10/29/17 Time of Evaluation: 13:10 - Subjective Subjective: Podiatry Progress Note- Dr. Vargas 67 year old male seen and evaluated at bedside POD #4 s/p right trans- metatarsal amputation. Patient reports pain is well controlled. Patient denies n /v/sob/cp/chills/f or d, nor any acute overnight events. Patient reports tolerating diet. Pt reports too much back pain, which he says is limiting his ability to perform physical therapy. Objective - Vital Signs/Intake and Output Vital Signs (last 24 hours): Temp Pulse Resp BP Pulse Ox 97.3 F L 67 20 103/69 100 10/29/17 07:38 10/29/17 07:38 10/29/17 07:38 10/29/17 07:38 10/29/17 07:38 Intake and Output: 10/29/17 10/29/17 06:59 18:59 Intake Total 240 Output Total 101 Balance 139 - Medications Medications: Current Medications Acetaminophen (Tylenol 325mg Tab) 325 mg PO Q4H PRN PRN Reason: Pain, Mild (1-3) Albuterol/Ipratropium (Duoneb 3 Mg/0.5 Mg (3 Ml) Ud) 3 ml IH Q3FNPAN [facility] Last Admin: 10/29/17 13:18 Dose: 3 ml Benzocaine/Menthol (Cepacol Sore Throat) 1 missy MT Q2H PRN PRN Reason: Sore Throat Carvedilol (Coreg) 25 mg PO BID [facility] Last Admin: 10/29/17 09:24 Dose: 25 mg Fluoxetine HCl (Prozac) 20 mg PO DAILY [facility] Last Admin: 10/29/17 09:24 Dose: 20 mg Guaifenesin/Dextromethorphan (Robitussin Dm) 5 ml PO Q4H PRN PRN Reason: Cough Insulin Human Regular (Humulin R Med) 0 units SC ACHS [facility] PRN Reason: Protocol Last Admin: 10/29/17 13:43 Dose: Not Given Magnesium Hydroxide (Milk Of Magnesia) 30 ml PO DAILY PRN PRN Reason: Constipation Last Admin: 10/29/17 15:34 Dose: 30 ml Oxycodone/Acetaminophen (Percocet 5/325 Mg Tab) 1 tab PO Q4H PRN PRN Reason: Pain, severe (8-10) Stop: 11/01/17 15:10 Last Admin: 10/29/17 15:28 Dose: 1 tab Sevelamer HCl (Renagel) 800 mg PO TID [facility] Last Admin: 10/29/17 13:45 Dose: 800 mg Sitagliptin Phosphate (Januvia) 25 mg PO DAILY [facility] Last Admin: 10/29/17 09:24 Dose: 25 mg Tamsulosin HCl (Flomax) 0.4 mg PO DAILY [facility] Last Admin: 10/29/17 09:24 Dose: 0.4 mg Tramadol HCl (Ultram) 50 mg PO TID [facility] - Labs Labs: 10/29/17 07:00 10/29/17 07:00 PT 14.5 SECONDS (9.4-12.5) H 10/24/17 15:54 INR 1.27 (0.93-1.08) H 10/24/17 15:54 APTT 31.4 Seconds (25.1-36.5) 10/24/17 15:54 - Constitutional Appears: Well, Non-toxic, No Acute Distress - Extremities Exam Additional comments: Right foot focused. Dressings c/d/i. MERCED drain removed. DERM: Right foot trans-metatarsal amputation amputation site noted with all sutures and cooper intact. No productive drainage or fluctuance. Flap site is cool to touch. VASC: DP and PT pulses weakly palpable graded 1/4. Temperature gradient cool to cool from proximal to distal. No edema noted to lower extremity. NEURO: Gross sensation diminished. - Neurological Exam Neurological Exam: Oriented x3 - Psychiatric Exam Psychiatric exam: Normal Affect, Normal Mood Assessment and Plan - Assessment and Plan (Free Text) Assessment: 67 year old male patient POD #4 s/p right trans-metatarsal amputation. Plan: Patient seen and evaluated at bedside. Discussed with attending, Dr. Smith. who endorsed the following plan. Chart, labs, and vitals reviewed. Afebrile, absent leukocytosis. Cleansed wound site with saline. Dressed with betadine, adaptic, and DSD. Pt to remains NWB with aid of axillary crutches. Pt has not completed PT due to refusing 2/2 to back pain. Post-operative pain control modified. -continue Tylenol 650mg -Ordered Ultram TID -Percocet 5/325 i tab q4h prn pain. Continue with post hemodialysis abx per ID. Currently intermittent IV Vancomycin pending resulted OR cx and pathology Podiatry will continue to follow while inhouse.
[2017-10-30] MEDS: Albuterol-Ipratrop 3 mg / 0.5 (3 ml) UD IH SCH ×3 (02:22→13:24)
[2017-10-30 06:47] LABS: HEMOGLOBIN 9.3 g/dL (14.0-18.0); MEAN CELL VOLUME 97.1 fl (80.0-105.0); MEAN CORPUSCULAR HEMOGLOBIN 30.2 pg (25.0-35.0); MEAN CORPUSCULAR HGB CONC 31.1 g/dl (31.0-37.0); MEAN PLATELET VOLUME 12.4 fl (7.0-11.0); RBC 3.08 10^6/uL (3.5-6.1); RED CELL DISTRIBUTION WIDTH 17.1 % (11.5-14.5); WHITE BLOOD COUNT 6.7 10^3/ul (4.5-11.0)
[2017-10-30] MEDS: Insulin Reg-MEDIUM-Coverage SC SCH ×2 (07:33→13:06)
[2017-10-30 08:15] LABS: ALBUMIN 2.9 g/dL (3.0-4.8); CALCIUM 9.2 mg/dL (8.4-10.5)
[2017-10-30 09:14] VITALS: RESP 18; TEMP 97.7; O2SAT 100
--- NOTE | 2017-10-30 09:55 | PN ---
DATE: 10/28/2017 SUBJECTIVE: I saw him status post transmetatarsal amputation by Podiatry for an osteomyelitis. He has end-stage renal disease, hemodialysis, diabetes, hypertension and he is resting comfortably in bed with some pain. He is currently on Aranesp, Cepacol, Coreg, DuoNebs, Flomax, insulin, milk of magnesia, Percocet, Prozac, Renagel, Robitussin, IV fluids, Tylenol and vancomycin. PHYSICAL EXAMINATION: VITAL SIGNS: He has a 97.7 temp, 72 pulse, 111/72 blood pressure, 20 respiratory rate, 98% O2 sat on room air. HEENT: His head is atraumatic, normocephalic. HEART: Regular rate. LUNGS: Clear to auscultation. ABDOMEN: Soft. EXTREMITIES: His right foot is bandaged. LABORATORY DATA: He has a 138 sodium, potassium is 4.4, BUN 47, creatinine 3.9, last blood sugar was 216, calcium is 8.9, total bili is 0.6, AST is 19, ALT is 27, alk phos is 194. He has a 7.5 white count, 9.3 hemoglobin, 30.4 hematocrit with 141 platelets. ASSESSMENT AND PLAN: He is being seen by Infectious Disease, Renal and Podiatry. We will continue with aggressive treatment and care. I will check his labs tomorrow. Tej Dubose DO
[2017-10-30 10:52] VITALS: BP 93/66; PULSE 70
--- NOTE | 2017-10-30 11:07 | CP.PCM.PN ---
Subjective - Date & Time of Evaluation Date of Evaluation: 10/30/17 Time of Evaluation: 11:08 - Subjective Subjective: Podiatry Progress Note- Dr. Smith 67 y.o old male seen and evaluated at beside 4 days s/p right TMA. Patient is seen resting comfortably in bed, in NAD, and AA0x3. Denies overnight acute events. Sister in law and niece is at beside visiting patient. Patient reports pain to the right foot that is well managed by pain medications. Dressing is clean, dry and intact with no strikethrough. Patient denies nausea, fever, shortness of breath, chills, or chest pains. Objective - Vital Signs/Intake and Output Vital Signs (last 24 hours): Temp Pulse Resp BP Pulse Ox 97.7 F 70 18 93/66 L 100 10/30/17 09:12 10/30/17 10:49 10/30/17 09:12 10/30/17 10:49 10/30/17 09:12 Intake and Output: 10/30/17 10/30/17 06:59 18:59 Intake Total 480 Balance 480 - Medications Medications: Current Medications Acetaminophen (Tylenol 325mg Tab) 325 mg PO Q4H PRN PRN Reason: Pain, Mild (1-3) Albuterol/Ipratropium (Duoneb 3 Mg/0.5 Mg (3 Ml) Ud) 3 ml IH [id number] [facility] Last Admin: 10/30/17 07:30 Dose: Not Given Benzocaine/Menthol (Cepacol Sore Throat) 1 missy MT Q2H PRN PRN Reason: Sore Throat Carvedilol (Coreg) 25 mg PO BID [facility] Last Admin: 10/30/17 10:49 Dose: Not Given Fluoxetine HCl (Prozac) 20 mg PO DAILY [facility] Last Admin: 10/30/17 10:47 Dose: 20 mg Guaifenesin/Dextromethorphan (Robitussin Dm) 5 ml PO Q4H PRN PRN Reason: Cough Insulin Human Regular (Humulin R Med) 0 units SC ACHS [facility] PRN Reason: Protocol Last Admin: 10/30/17 07:33 Dose: Not Given Oxycodone/Acetaminophen (Percocet 5/325 Mg Tab) 1 tab PO Q4H PRN PRN Reason: Pain, severe (8-10) Stop: 11/01/17 15:10 Last Admin: 10/29/17 15:28 Dose: 1 tab Sevelamer HCl (Renagel) 800 mg PO TID [facility] Last Admin: 10/30/17 10:47 Dose: 800 mg Sitagliptin Phosphate (Januvia) 25 mg PO DAILY [facility] Last Admin: 10/30/17 10:47 Dose: 25 mg Tamsulosin HCl (Flomax) 0.4 mg PO DAILY [facility] Last Admin: 10/30/17 10:47 Dose: 0.4 mg Tramadol HCl (Ultram) 50 mg PO TID [facility] Last Admin: 10/30/17 10:47 Dose: 50 mg - Labs Labs: 10/30/17 06:25 10/30/17 06:25 PT 14.5 SECONDS (9.4-12.5) H 10/24/17 15:54 INR 1.27 (0.93-1.08) H 10/24/17 15:54 APTT 31.4 Seconds (25.1-36.5) 10/24/17 15:54 - Constitutional Appears: Well, Non-toxic, No Acute Distress - Extremities Exam Extremities Exam: absent: Calf Tenderness Additional comments: DERM: Right foot trans-metatarsal amputation amputation site noted with all sutures and cooper intact. No dehiscence noted. No productive drainage or fluctuance noted. Flap site is cool to touch. Color to flap WNL VASC: DP and PT pulses weakly palpable graded 1/4. Temperature gradient cool to cool from proximal to distal. No edema noted to lower extremity. NEURO: Gross sensation diminished ORTHO: pain with palpation to surgical site - Neurological Exam Neurological Exam: Alert, Awake, Oriented x3 - Psychiatric Exam Psychiatric exam: Normal Affect, Normal Mood Assessment and Plan - Assessment and Plan (Free Text) Assessment: 67 year old male patient POD #4 s/p right trans-metatarsal amputation DOS: - stable Plan: Patient seen and evaluated at bedside. Discussed with attending, Dr. Smith. who endorsed the following plan. Chart, labs, and vitals reviewed. Afebrile, absent leukocytosis. Cleansed wound site with saline. Dressed with betadine, adaptic, and DSD. Patient to limit WB for transfers only with forefoot offloading shoes. Pt to remains NWB with aid of axillary crutches majority of time Post-operative pain control modified. -continue Tylenol 650mg -Ordered Ultram TID -Percocet 5/325 i tab q4h prn pain. Continue with post hemodialysis abx per ID. Currently intermittent IV Vancomycin pending resulted OR cx and pathology Dressings to remain clean, dry, and intact. Do not get wet Upon discharge: Change dressing every 2 days: clean surgical site with saline solution, paint with betadine and dress with dsd, abd, and kerlix. Patient to follow up in wound care in [address] Smith Patient weight bear status is limited WB for transfers only with forefoot offloading shoes. Pt to remains NWB with aid of axillary crutches majority of time Podiatry will continue to follow while inhouse.
--- NOTE | 2017-10-30 11:56 | PN ---
DATE: SUBJECTIVE: Patient has no complaints of any chest pain. No shortness of breath. No headaches. No dizziness. PHYSICAL EXAMINATION VITAL SIGNS: Temperature is 97.2, pulse is 64, blood pressure is 101/63, respirations 20. GENERAL: The patient is lying in bed, flat, comfortable. HEENT: No oral lesion. Anicteric sclerae. Moist mucosa. NECK: No JVD, adenopathy or thyromegaly. CARDIOVASCULAR: S1 and S2, regular. No murmurs, rubs, or gallops. LUNGS: Clear to auscultation bilaterally. No wheeze, rales, or rhonchi. ABDOMEN: Bowel sounds are positive. Soft, nontender and nondistended. EXTREMITIES: No cyanosis, clubbing or edema. LABORATORY DATA: White count is 6.9, hemoglobin 9.8, creatinine is 1.8. ASSESSMENT 1. Right foot transmetatarsal amputation. 2. End-stage renal disease, on hemodialysis Monday, Monday and Monday. 3. Secondary hyperparathyroidism. 4. Left arteriovenous fistula. 5. . 6. Dyslipidemia. 7. Diabetes type 2. 8. Peripheral arterial disease. 9. Frailty. 10. Gait dysfunction. 11. History of right tibial angioplasty with stent. PLAN: The patient is currently comfortable. He is going to be dialyzed today. The patient is getting discharged to subacute rehab. patient is on carvedilol. He is going to continue with Flomax. He is on oxycodone for pain. The patient is on magnesium hydroxide, I will discontinue that as the patient is dialysis dependent and the magnesium can become elevated. The patient is on Renagel for his secondary hyperparathyroidism. He is on Ultram for pain. He is on a renal diet. Maurice Agarwal MD
[2017-10-30] MEDS: Oxycodone/Acetaminophen 5/325 mg Tab PO PRN (13:07)
--- NOTE | 2017-10-30 15:13 | CP.PCM.PN ---
Subjective - Date & Time of Evaluation Date of Evaluation: 10/30/17 Time of Evaluation: 10:40 - Subjective Subjective: No fevers, not in distress. Objective - Vital Signs/Intake and Output Vital Signs (last 24 hours): Temp Pulse Resp BP Pulse Ox 97.7 F 69 20 90/63 L 98 10/28/17 06:00 10/28/17 17:11 10/28/17 06:00 10/28/17 17:11 10/28/17 06:00 Intake and Output: 10/28/17 10/28/17 06:59 18:59 Intake Total 600 Output Total 0 Balance 600 - Medications Medications: Current Medications Acetaminophen (Tylenol 325mg Tab) 325 mg PO Q4H PRN PRN Reason: Pain, Mild (1-3) Albuterol/Ipratropium (Duoneb 3 Mg/0.5 Mg (3 Ml) Ud) 3 ml IH Q2TQGRO [facility] Last Admin: 10/28/17 12:59 Dose: Not Given Benzocaine/Menthol (Cepacol Sore Throat) 1 missy MT Q2H PRN PRN Reason: Sore Throat Carvedilol (Coreg) 25 mg PO BID [facility] Last Admin: 10/28/17 17:11 Dose: Not Given Fluoxetine HCl (Prozac) 20 mg PO DAILY [facility] Last Admin: 10/28/17 10:08 Dose: 20 mg Guaifenesin/Dextromethorphan (Robitussin Dm) 5 ml PO Q4H PRN PRN Reason: Cough Insulin Human Regular (Humulin R Med) 0 units SC ACHS [facility] PRN Reason: Protocol Last Admin: 10/28/17 17:10 Dose: 1 units Magnesium Hydroxide (Milk Of Magnesia) 30 ml PO DAILY PRN PRN Reason: Constipation Last Admin: 10/28/17 11:03 Dose: 30 ml Oxycodone/Acetaminophen (Percocet 5/325 Mg Tab) 1 tab PO Q4H PRN PRN Reason: Pain, moderate (4-7) Stop: 10/29/17 09:51 Last Admin: 10/28/17 11:03 Dose: 1 tab Oxycodone/Acetaminophen (Percocet 5/325 Mg Tab) 2 tab PO Q4H PRN PRN Reason: Pain, severe (8-10) Stop: 10/29/17 09:51 Last Admin: 10/27/17 23:00 Dose: 2 tab Sevelamer HCl (Renagel) 800 mg PO TID [facility] Last Admin: 10/28/17 17:10 Dose: 800 mg Tamsulosin HCl (Flomax) 0.4 mg PO DAILY [facility] Last Admin: 10/28/17 10:08 Dose: 0.4 mg - Labs Labs: 10/28/17 07:00 10/28/17 07:00 PT 14.5 SECONDS (9.4-12.5) H 10/24/17 15:54 INR 1.27 (0.93-1.08) H 10/24/17 15:54 APTT 31.4 Seconds (25.1-36.5) 10/24/17 15:54 - Constitutional Appears: Non-toxic, Chronically Ill - Head Exam Head Exam: NORMAL INSPECTION - Neck Exam Neck Exam: absent: Meningismus - Respiratory Exam Respiratory Exam: Decreased Breath Sounds - Cardiovascular Exam Cardiovascular Exam: +S1, +S2 - GI/Abdominal Exam GI & Abdominal Exam: Soft. absent: Tenderness - Extremities Exam Additional comments: right foot stump with dressings in place Assessment and Plan - Assessment and Plan (Free Text) Plan: Assessment Right hallux osteomyelitis S/P transmetatarsal amputation POD #4 S/P sepsis from HCAP, grew Klebsiella in the sputum right hallux distal phalanx osteomyelitis and gangrene S/P amputation POD #15; resection margins still show necrosis and osteomyelitis ESRD on HD with left arm AV shunt DM HTN dyslipidemia Plan continue intermittent IV Vancomycin (every dialysis session) pending OR cx and pathology; if margins still have osteomyelitis, should get another 4 weeks of antibiotics - patient will follow up with Podiatry
--- NOTE | 2017-10-31 00:05 | PN ---
HISTORY OF PRESENT ILLNESS: I saw him in dialysis. He is resting comfortably in bed. I am hoping to get him to subacute rehab at [facility] where he came from, status post transmetatarsal surgery of his right foot, also was on dialysis with diabetes. He is comfortable with little pain. He is eating okay. PHYSICAL EXAMINATION: VITAL SIGNS: He has 97.2 temperature, 64 pulse, 101/63 blood pressure, 20 respiratory rate, 90% O2 sat on 2 L. HEENT: His head is atraumatic, normocephalic. CARDIOVASCULAR: Heart has regular rate. RESPIRATORY: Lungs are clear to auscultation. ABDOMEN: Soft. EXTREMITIES: No edema and his right foot is bandaged. MEDICATIONS: He is currently on Cepacol, Coreg, DuoNeb, Flomax, insulin, Januvia, Percocet, Prozac, Renagel, Robitussin, Tylenol and Ultram. LABORATORY DATA: He has 6.7 white count, 9.3 hemoglobin, 29.9 hematocrit, 168 platelets. Sodium 137, potassium is 5, BUN is 60, creatinine 4.8, sugar is 177. AST is 80, ALT is 25, alkaline phosphatase 177. ASSESSMENT: He is being seen by Infectious Disease and Podiatry. He is comfortable. He had a right hallux osteomyelitis, status post transmetatarsal amputation, status post sepsis, end-stage renal disease with dialysis, diabetes, hypertension. PLAN: He will be on vancomycin on every dialysis session. Hopefully, we can discharge him today back to [facility]. Tej Dubose DO
--- NOTE | 2017-10-31 03:23 | OP ---
PROCEDURE DATE: 10/26/2017 SURGEON: Caroline Smith DPM COMPUTER APPLICATION DEVELOPER: Fernandez Villanueva DPM, PGY-1. ANESTHESIOLOGIST: Rachid Levin DO. ANESTHESIA: IV sedation with local. PREOPERATIVE DIAGNOSIS: Right foot gangrene. POSTOPERATIVE DIAGNOSIS: Right foot gangrene. NAME OF PROCEDURE: Right first transmetatarsal amputation. INDICATION: The patient is a 67-year-old male with the above diagnosis. Patient has underwent previous right hallux amputation, exhibiting dry gangrene changes to the distal aspect of the amputation site. There is no drainage, no purulence, no malodor. The right second digit to the level of the proximal base is necrotic and dry gangrene as well. The capillary refill is delayed to all five digits of the right foot. There is increasing darkened discoloration noted to the digits 3, 4 and 5. Temperature gradient of the right foot is cool to touch. The patient has exhausted all conservative treatment at this time and now requires surgical intervention. The patient signed the consent after careful explanation of the risks, benefits, alternatives, and complications for the surgical procedure. No guarantees were made nor implied. N.p.o. status was confirmed prior to taking the patient to the OR. PREPARATION: The patient was brought to the operating room and placed on the operating room table in a supine position. A time-out was performed for identification of the correct patient and procedure. After induction of IV sedation, the patient received a total of 17 mL of 2% lidocaine plain in a local ankle-block fashion. The right lower extremity was then prepped and draped in the normal sterile manner and the procedure begun. No tourniquet was used during the procedure. DESCRIPTION OF PROCEDURE: Attention was directed to the distal aspect of the right foot at the level of the MPJ. With the use of a #15 blade, a fishmouth incision was made circumferentially around the entire midfoot straight down to the level of bone with plantar incision more distally with more plantar skin and soft tissue to create a longer plantar flap, and dorsally , with metatarsal heads exposed. Next, all the soft tissue was freed from the distal aspect of the metatarsal to the midshaft of the metatarsals 1 to 5, including periosteum, using a harding elevator. A sagittal saw was then used to resect the first metatarsal at the level of the midshaft, angled in a dorsal medial to plantar lateral direction. Next, with the sagittal saw, the second metatarsal was then resected at the level of the midshaft, angled in a dorsal distal to proximal plantar direction. Next, with the sagittal saw, the third metatarsal was then resected at the level of the midshaft, angled in a dorsal distal to proximal plantar direction. Then, with the sagittal saw, the fourth metatarsal was then resected to the level of the midshaft, angled in a dorsal distal to proximal plantar direction. The sagittal saw was used to resect the fifth metatarsal at the level of the midshaft, angled in a dorsal lateral to plantar medial direction. All the tissue were freed from the metatarsal head with the periosteum elevated up to where the metatarsal was transected and removed from the distal aspect of the foot. All devitalized and nonviable soft tissue was then excised from the tarsometatarsal amputation site using a #15 blade and forceps. With the hemostat and dissecting scissors, the extensor tendons were resected. The remaining sharp bone edges were then smoothed using a bone rasp. Next, a pulse lavage was utilized to copiously irrigate the surgical site with gentamicin infused in saline. The plantar tissue was then brought up dorsally to cover the metatarsal stump. The remainder of the metatarsal stump and deep tissues were then reapproximated with 3-0 Vicryl. The skin was then reapproximated with skin cooper and 3-0 nylon. The surgical site was then dressed with Adaptic followed by fluffs, gauze, followed by ABD, Kerlix, and a very light Clint. POSTOPERATIVE CONDITION: The patient tolerated the anesthesia and procedure well and was escorted to the recovery room with the vital signs stable and neurovascular status intact to the right lower extremity. Patient is to remain nonweightbearing to the right lower extremity. Podiatry will continue to follow the patient while inhouse. Patient will follow up with Dr. Smith upon discharge. Fernandez Kay, DPM Caroline Smith DPM SAAD
== END 2017-10-30 14:36 | DRG 239 ==
LOC: ED 14:49 → ERH 16:56 → 3RNO 20:34
PROVIDERS: ADMIT Family Medicine; ATTEND Family Medicine
PROC: 0Y6M0ZB Detachment at Right Foot, Partial 2nd Ray, Open Approach (ICD-10-PCS; 2017-10-26)
PROC: 0Y6M0ZC Detachment at Right Foot, Partial 3rd Ray, Open Approach (ICD-10-PCS; 2017-10-26)
PROC: 0Y6M0ZD Detachment at Right Foot, Partial 4th Ray, Open Approach (ICD-10-PCS; 2017-10-26)
PROC: 0Y6M0ZF Detachment at Right Foot, Partial 5th Ray, Open Approach (ICD-10-PCS; 2017-10-26)
PROC: 0Y6M0Z9 Detachment at Right Foot, Partial 1st Ray, Open Approach (ICD-10-PCS; principal; 2017-10-26 07:30)
DX: E10.52 Type 1 diabetes mellitus with diabetic peripheral angiopathy with gangrene (principal); N18.6 End stage renal disease; I13.2 Hypertensive heart and chronic kidney disease with heart failure and with stage 5 chronic kidney disease, or end stage renal disease; M86.171 Other acute osteomyelitis, right ankle and foot; E10.22 Type 1 diabetes mellitus with diabetic chronic kidney disease; E10.621 Type 1 diabetes mellitus with foot ulcer; J44.0 Chronic obstructive pulmonary disease with (acute) lower respiratory infection; N25.81 Secondary hyperparathyroidism of renal origin; E10.69 Type 1 diabetes mellitus with other specified complication; I50.9 Heart failure, unspecified; E78.00 Pure hypercholesterolemia, unspecified; E78.5 Hyperlipidemia, unspecified; H54.7 Unspecified visual loss; K21.9 Gastro-esophageal reflux disease without esophagitis; K59.00 Constipation, unspecified; L97.509 Non-pressure chronic ulcer of other part of unspecified foot with unspecified severity; Y95 Nosocomial condition; Z79.02 Long term (current) use of antithrombotics/antiplatelets; Z79.2 Long term (current) use of antibiotics; Z79.4 Long term (current) use of insulin; Z87.891 Personal history of nicotine dependence; Z89.411 Acquired absence of right great toe; Z99.2 Dependence on renal dialysis

== ENCOUNTER 2017-11-08 15:58 | Inpatient (IN) | payer MEDICARE, OTHER ==
[2017-11-08 16:20] VITALS: BMI 19.3
[2017-11-08] MEDS ORDERED: Morphine 2 mg/ml ISec IVP STA (16:22)
[2017-11-08] MEDS ORDERED: Morphine 4 mg/ml ISec IVP STA (16:25)
--- NOTE | 2017-11-08 16:27 | ED PDOC ---
Arrival/HPI - General Chief Complaint: GI Problem Time Seen by Provider: 11/08/17 16:14 Historian: Patient - History of Present Illness Narrative History of Present Illness (Text): 11/08/17 16:24 pt p/w + few days onset of worsening sob, chest tightness/cramps, and lower abd/ rectal pain (likely from constipation); pt finished his due dialysis today and felt worsening sob and came to ED for further eval/txt; pt states chest tightness is worse today, + difficulty speaking due to sob, + sob, no palpitations, no fever/chills/sweats, + nausea, + vomiting x 1 episode today, no bowel movement; pt denied LOC, + general weakness/easily fatigued; pt is here for further eval; pt's without other complaints pt is a resident of [place] PCP/Nephro: Dr Supa Francis cards: azra Time/Duration: < week (few days) Symptom Onset: Sudden Symptom Course: Worsening Quality: Tightness, Cramping Severity Level: 8, Severe Activities at Onset: Rest Context: Home, Other (at dialysis unit) Past Medical History - Provider Review Nursing Documentation Reviewed: Yes - Travel History Have you recently traveled outside [place] w/in the past 3 mons?: No - Past History Past History: No Previous - Infectious Disease Hx of Infectious Diseases: None - Tetanus Immunization Tetanus Immunization: Unknown - Cardiac Hx Cardiac Disorders: Yes Hx Congestive Heart Failure: Yes Hx Hypertension: Yes Hx Pacemaker: No - Pulmonary Hx Respiratory Disorders: Yes Hx Chronic Obstructive Pulmonary Disease (COPD): Yes - Neurological Hx Neurological Disorder: Yes Hx Dizziness: Yes - HEENT Hx HEENT Disorder: Yes (WEARS RX GLASSES) Hx Blind: Yes (R eye) - Renal Hx Renal Disorder: Yes Hx Dialysis: Yes (MWF @[facility] [place] for 2 years) Type of Dialysis Access: L FA AV shunt Date of Last Dialysis Treatment: 11/08/17 Hx Renal Failure: Yes - Endocrine/Metabolic Hx Endocrine Disorders: Yes Hx Diabetes Mellitus Type 2: Yes - Hematological/Oncological Hx Blood Transfusions: No Hx Blood Transfusion Reaction: No - Integumentary Hx Dermatological Disorder: Yes Other/Comment: hx of wounds due to diabetes multiple skin discolorations and dry skin both legs, left great toe swelling pain color deep red and brown skin areas around toenail, generalized dry itchy skin - Musculoskeletal/Rheumatological Hx Falls: No - Gastrointestinal Hx Gastrointestinal Disorders: Yes Hx Gastroesophageal Reflux: Yes - Genitourinary/Gynecological Hx Genitourinary Disorders: Yes - Psychiatric Hx Psychophysiologic Disorder: No Hx Emotional Abuse: No Hx Physical Abuse: No Hx Substance Use: No - Surgical History Hx Coronary Stent: Yes (07/2014 x2) Other/Comment: shunt in L arm. Picc VJ. R great toeamp - Anesthesia Hx Anesthesia: Yes Hx Anesthesia Reactions: No Hx Malignant Hyperthermia: No - Suicidal Assessment Feels Threatened In Home Enviroment: No Family/Social History - Physician Review Nursing Documentation Reviewed: Yes Family/Social History: No Known Family HX Smoking Status: Former Smoker Hx Alcohol Use: No Hx Substance Use: No Hx Substance Use Treatment: No Allergies/Home Meds Allergies/Adverse Reactions: Allergies No Known Allergies Allergy (Verified 09/27/17 09:17) Home Medications: Home Meds Medication Instructions Recorded Confirmed Midodrine [Proamatine] 1 tab PO TID 11/08/17 11/08/17 Polyethylene Glycol 3350 [Miralax] 17 g PO DAILY 11/08/17 11/08/17 traMADol [Ultram] 50 mg PO TID PRN 11/08/17 11/08/17 Review of Systems - Review of Systems Constitutional: Fatigue Eyes: Normal ENT: Normal Respiratory: SOB Cardiovascular: Chest Pain Gastrointestinal: Abdominal Pain, Constipation, Nausea, Vomiting Genitourinary Male: Normal Musculoskeletal: Normal Skin: Normal Neurological: Dizziness Endocrine: Normal Hemo/Lymphatic: Normal Psychiatric: Normal Physical Exam Vital Signs Reviewed: Yes Vital Signs Temp Pulse Resp BP Pulse Ox 11/08/17 17:30 19 119/69 100 11/08/17 17:03 77 20 94/64 L 100 11/08/17 16:34 97.5 F L 65 20 83/59 L 97 Temperature: Afebrile Blood Pressure: Hypotensive Pulse: Regular Respiratory Rate: Normal Appearance: Positive for: Uncomfortable, Cachectic, Other (uncomfortable, moderate distress due to sob/chest pain/abd pain; alert/awake, GCS = 15, oriented x 3, cooperative; follows command with ease) Pain Distress: Moderate Mental Status: Positive for: Alert and Oriented X 3 - Systems Exam Head: Present: Atraumatic, Normocephalic, Other (bi-temporal wasting) Pupils: Present: PERRL, Other (visual field intact b/l, no nystagmus) Extroacular Muscles: Present: EOMI Conjunctiva: Present: Normal Ears: Present: Normal Mouth: Present: Other (mild dry oral mucosa, poor dentitions, no drooling/ stridor, audible rales noted; no exudate/lesions; uvula/tongue are midline) Pharnyx: Present: Normal Nose (External): Present: Atraumatic Nose (Internal): Present: Normal Inspection Neck: Present: Normal Range of Motion, Trachea Midline, Other (no meningeal signs, no midline tenderness, no nuchal rigidity, no step off). No: MIDLINE TENDERNESS Respiratory/Chest: Present: Other (b/l diffuse rhonchi/rales noted right << left ; mild resp distress noted with mild tachypenia, no accessory muscle use noted, no belly retractions noted, faint basiliar wheezing noted) Cardiovascular: Present: Regular Rate and Rhythm, Normal S1, S2. No: Murmurs Abdomen: Present: Normal Bowel Sounds, Other (thin male, no focal tenderness, no olea's sign, no mcburney's point tenderness, no masses/rebound/guarding/ rigidity) Back: Present: Normal Inspection. No: Midline Tenderness Upper Extremity: Present: Normal Inspection, Normal ROM, NORMAL PULSES, Neurovascularly Intact, Other (+ left arm dialysis shiley with good thrill; intact ROM, strength 5/5 grossly intact in all limbs, neurovasc intact b/l) Lower Extremity: Present: Normal Inspection, NORMAL PULSES, Normal ROM, Neurovascularly Intact. No: CALF TENDERNESS Neurological: Present: GCS=15, CN II-XII Intact, Speech Normal Skin: Present: Warm, Dry, Other (cap refill ~ 1sec, no ulcerations, no petechiae , mild pallor) Psychiatric: Present: Alert, Oriented x 3 Medical Decision Making ED Course and Treatment: 11/08/17 16:24 Impression: sob/chest pain, n/v i have consider all the differential diagnosis regarding pt's chief medical complaints/clinical findings, including but are not limited to: r/o acs, r/o infection/ A/P: chest pain, sob, n/v, rectal pain - labs - iv - xray - acs eval - observe - supportive care 11/08/17 18:00 pt is feeling improved pt states chest pain eased up pt is made aware of his medical results agrees with admission [address] Francis, made aware, agrees with admission, would like patient started on Lactulose and to monitor patient if mg/citrate was provided due to his ESRD dialysis condition 11/08/17 18:35 after duoneb treatment, pt appears more comfortable respiratory lung re-exam: improved rales/rhonchi, with persistent left >> right, no wheezing currently Re-evaluation Time: 18:00 Reassessment Condition: Improving,but remains with symptoms - Critical Care Critical Care Minutes: 45 minutes Critical Care Time: Excluding Proc Time Narrative Critical Care (Text): 11/08/17 18:26 critical care time: 45min, excluding procedure time, excluding time teaching residents/students/mid-level providers; including initial eval/diagnosis, diagnostic interpretation, re-eval, consultations, final disposition - Lab Interpretations Lab Results: 11/08/17 16:50 11/08/17 16:50 Lab Results 11/08/17 16:50: Blood Type O POSITIVE, Antibody Screen Negative, BBK History Checked Patient has bt 11/08/17 16:50: Sodium 137, Chloride 95 L, Potassium 3.8, Carbon Dioxide 29, Anion Gap 17, BUN 30 H, Creatinine 3.1 H, Est GFR ( Amer) 25, Est GFR ( Non-Af Amer) 20, Random Glucose 213 H, Calcium 8.8, Total Bilirubin 1.2, AST 25 , ALT 18, Alkaline Phosphatase 213 H D, Lactate Dehydrogenase 405, Total Creatine Kinase 31 L, Troponin I 0.14 H* D, NT-Pro-B Natriuret Pep Pending, Total Protein 6.3, Albumin 3.2, Globulin 3.1, Albumin/Globulin Ratio 1.0 L, Lipase 28 11/08/17 16:50: pO2 44, VBG pH 7.33, VBG pCO2 59.0, VBG HCO3 31.1 H, VBG Total CO2 32.9 H, VBG O2 Sat (Calc) 78.6 H, VBG Base Excess 3.6 H, VBG Potassium 3.8, Sodium 136.0, Chloride 98.0, Glucose 223 H, Lactate 3.6 H, FiO2 21.0, Venous Blood Potassium 3.8 11/08/17 16:50: PT 16.4 H, INR 1.43 H, APTT 32.4 11/08/17 16:50: WBC 10.1 D, RBC 3.26 L, Hgb 9.8 L, Hct 32.1 L, MCV 98.5, MCH 30.1, MCHC 30.5 L, RDW 17.5 H, Plt Count 156, MPV 12.3 H, Gran % 88.1 H, Lymph % (Auto) 6.7 L, Emmons % (Auto) 5.1, Eos % (Auto) 0.0 L, Baso % (Auto) 0.1, Gran # 8.88 H, Lymph # (Auto) 0.7 L, Emmons # (Auto) 0.5, Eos # (Auto) 0.0, Baso # ( Auto) 0.01 I have reviewed the lab results: Yes Interpretation: Abnormal lab values (elevated BNP/TROP; + creat elevation ( chronic)) - RAD Interpretation Narrative RAD Interpretations (Text): 11/08/17 18:29 chest - cardiomeagly; cephalization of pulm vascularture, possible pulm edema, no consolidations abd xray - no air fluid level, no free air, paucity of air; + FOS Radiology Orders: 11/08/17 16:20 CHEST PORTABLE [RAD] Stat 11/08/17 16:25 ABDOMEN PORTABLE 2 VIEWS [RAD] 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 - EKG Interpretation EKG Interpretation (Text): 11/08/17 18:31 NSR at 80 bpm, normal axis, + ectopy, diffuse low voltage inf leads, non- specific st-t changes, ABNL EKG; no gross changes compare with old ekg 09/2017 Interpreted by ED Physician: Yes Type: 12 lead EKG Comparison: Similar to previous EKG - Medication Orders Current Medication Orders: Discontinued Medications Albuterol/Ipratropium (Duoneb 3 Mg/0.5 Mg (3 Ml) Ud) 3 ml IH Q15M CURLY Stop: 11/08/17 17:01 Last Admin: 11/08/17 17:07 Dose: 3 ml Aspirin (Aspirin Chewable) 81 mg PO STAT STA Stop: 11/08/17 16:24 Last Admin: 11/08/17 16:38 Dose: 81 mg Lactulose (Enulose) 20 gm PO ONCE STA Stop: 11/08/17 17:36 Last Admin: 11/08/17 17:46 Dose: 20 gm Magnesium Citrate (Citrate Of Mag) 300 ml PO ONCE ONE Stop: 11/08/17 17:32 Last Admin: 11/08/17 17:46 Dose: 300 ml Mineral Oil (Fleet Mineral Oil Enema) 135 ml RC ONCE ONE Stop: 11/08/17 17:32 Last Admin: 11/08/17 18:00 Dose: 135 ml Morphine Sulfate (Morphine) 4 mg IVP STAT STA Stop: 11/08/17 16:26 Last Admin: 11/08/17 16:52 Dose: 4 mg MAR Pain Assessment Document 11/08/17 16:52 ESPERANZA (Rec: 11/08/17 16:52 ESPERANZA [id number]) Pain Reassessment Is this a pain reassessment? Yes Presence of Pain Presence of Pain Yes Location Pain Location Body Site Abdomen Description Description Sharp Intensity of Pain at present 8 Pain Behavior Moaning IVP Administration Document 11/08/17 16:52 ESPERANZA (Rec: 11/08/17 16:52 ESPERANZA [id number]) Charges for Administration # of IVP Administrations 1 Ondansetron HCl (Zofran Inj) 4 mg IVP STAT STA Stop: 11/08/17 16:23 Last Admin: 11/08/17 16:51 Dose: 4 mg IVP Administration Document 11/08/17 16:51 ESPERANZA (Rec: 11/08/17 16:51 [place] [id number]) Charges for Administration # of IVP Administrations 1 Disposition/Present on Arrival - Present on Arrival Any Indicators Present on Arrival: No History of DVT/PE: No History of Uncontrolled Diabetes: Yes Urinary Catheter: No History of Decub. Ulcer: No History Surgical Site Infection Following: None - Disposition Have Diagnosis and Disposition been Completed?: Yes Diagnosis: Respiratory distress, acute, Constipation, Chest pain with moderate risk of acute coronary syndrome, ESRD on dialysis Disposition: HOSPITALIZED Disposition Time: 18:00 Patient Plan: Admission, Observation Condition: FAIR
[2017-11-08] MEDS: Albuterol-Ipratrop 3 mg / 0.5 (3 ml) UD IH SCH ×3 (16:38→17:07)
[2017-11-08 17:18] LABS: BASO # 0.01 K/mm3 (0.0-2.0); BASO % 0.1 % (0.0-3.0); GRAN # 8.88 (1.4-6.5); GRAN % 88.1 % (50.0-68.0); HEMOGLOBIN 9.8 g/dL (14.0-18.0); LYMPH # 0.7 (1.2-3.4); LYMPH % 6.7 % (22.0-35.0); MEAN CELL VOLUME 98.5 fl (80.0-105.0); MEAN CORPUSCULAR HEMOGLOBIN 30.1 pg (25.0-35.0); MEAN CORPUSCULAR HGB CONC 30.5 g/dl (31.0-37.0); MEAN PLATELET VOLUME 12.3 fl (7.0-11.0); MONO # 0.5 (0.1-0.6); MONO % 5.1 % (1.0-6.0); RBC 3.26 10^6/uL (3.5-6.1); RED CELL DISTRIBUTION WIDTH 17.5 % (11.5-14.5); VENOUS BLOOD GAS BASE EXCESS 3.6 mmol/L (0.0-2.0); VENOUS BLOOD GAS PO2 44 mm/Hg (30-55); VENOUS BLOOD PH 7.33 (7.32-7.43); WHITE BLOOD COUNT 10.1 10^3/ul (4.5-11.0)
[2017-11-08] MEDS ORDERED: Mineral Oil Enema 135 ml RC ONE (17:31)
[2017-11-08] MEDS ORDERED: Magnesium Citrate Oral SOL (300 ml) PO ONE (17:31)
[2017-11-08 17:38] LABS: ALBUMIN 3.2 g/dL (3.0-4.8); CALCIUM 8.8 mg/dL (8.4-10.5)
[2017-11-08 17:50] LABS: INR 1.43 (0.93-1.08); PARTIAL THROMBOPLASTIN TIME 32.4 Seconds (25.1-36.5); PROTHROMBIN TIME 16.4 SECONDS (9.4-12.5)
[2017-11-08 18:10] LABS: TROPONIN I 0.14 ng/mL
[2017-11-08 20:44] LABS: VENOUS BLOOD GAS BASE EXCESS 5.1 mmol/L (0.0-2.0); VENOUS BLOOD GAS PO2 46 mm/Hg (30-55); VENOUS BLOOD PH 7.29 (7.32-7.43)
[2017-11-09] MEDS: Oxycodone/Acetaminophen 5/325 mg Tab PO PRN ×3 (04:40→16:01)
[2017-11-09] MEDS: Albuterol-Ipratrop 3 mg / 0.5 (3 ml) UD IH PRN ×3 (04:45→14:00)
--- NOTE | 2017-11-09 08:29 | RAD ---
HISTORY: chest pain, sob COMPARISON: 10/24/2017 FINDINGS: LUNGS: No active pulmonary disease. PLEURA: No significant pleural effusion identified, no pneumothorax apparent. CARDIOVASCULAR: Mild cardiomegaly. Mild cephalization of pulmonary vasculature OSSEOUS STRUCTURES: No significant abnormalities. VISUALIZED UPPER ABDOMEN: Normal. OTHER FINDINGS: None. IMPRESSION: Mild cardiomegaly. Mild cephalization of pulmonary vasculature
--- NOTE | 2017-11-09 08:30 | RAD ---
HISTORY: diffues abd pain COMPARISON: No prior. FINDINGS: BOWEL: Normal. No obstruction. No free air. BONES: Normal. OTHER FINDINGS: None. IMPRESSION: No active disease.
[2017-11-09] MEDS: Hydrocortisone 2.5% Rectal Cream(30 gm) PR SCH ×3 (10:07→18:00)
--- NOTE | 2017-11-09 10:23 | CP.PCM.CON ---
History of Present Illness - History of Present Illness History of Present Illness: Seen and examined by me and Dr. Tejeda Reason for consultation: Worsening shortness of breath with chest tightness, patient known to /Dr. Mendez. history of Type 2 diabetes mellitus, hypertension, history of congestive heart failure, COPD,end stage renal disease on hemodialysis 3 x a week last 11/08/17. left arm AV shunt , peripheral vascular disease. Subjective: lying in bed,mild respiratory distress on Nasal cannula, verbalized to be uncomfortable due to constipation, denies chest pain. Review of Systems - Review of Systems Systems not reviewed;Unavailable: Respiratory Distress Review of Systems: mild shortness of breath, on nasal cannula - Constitutional Additional comments: Anxious - EENT Additional comments: blind right eye - Cardiovascular Cardiovascular: As Per HPI, Chest Pain, Dyspnea on Exertion - Respiratory Respiratory: Dyspnea on Exertion - Gastrointestinal Gastrointestinal: Abdominal Pain, Constipation - Genitourinary Additional comments: end stage renal disease on hemodialysis - Musculoskeletal Musculoskeletal: Muscle Weakness - Integumentary Additional comments: dry and itchy - Psychiatric Psychiatric: Anxiety - Endocrine Additional Comments: Type 2 diabetes mellitus Past Patient History - Infectious Disease Hx of Infectious Diseases: None - Tetanus Immunizations Tetanus Immunization: Unknown - Past Medical History & Family History Past Medical History?: Yes - Past Social History Smoking Status: Former Smoker - CARDIAC Hx Cardiac Disorders: Yes Hx Congestive Heart Failure: Yes Hx Hypercholesterolemia: Yes Hx Hypertension: Yes (&hypotension) Hx Pacemaker: No Hx Peripheral Vascular Disease: Yes - PULMONARY Hx Respiratory Disorders: Yes Hx Chronic Obstructive Pulmonary Disease (COPD): Yes Hx Pneumonia: Yes - NEUROLOGICAL Hx Neurological Disorder: No - HEENT Hx HEENT Problems: Yes (diabetic retinopathy) Hx Blind: Yes (R eye) - RENAL Hx Chronic Kidney Disease: Yes Hx Dialysis: Yes (MWF) Date of Last Dialysis Treatment: 11/08/17 Hx Renal Failure: Yes - ENDOCRINE/METABOLIC Hx Endocrine Disorders: Yes Hx Diabetes Mellitus Type 2: Yes - HEMATOLOGICAL/ONCOLOGICAL Hx Blood Disorders: Yes Hx Anemia: Yes Hx Hepatitis A: Yes - INTEGUMENTARY Hx Dermatological Problems: Yes Other/Comment: hx of wounds due to diabetes multiple skin discolorations and dry skin both legs, pressure ulcer to sacrum - MUSCULOSKELETAL/RHEUMATOLOGICAL Hx Falls: No - GASTROINTESTINAL Hx Gastrointestinal Disorders: Yes Hx Constipation: Yes Hx Gastroesophageal Reflux: Yes Other/Comment: constipation - GENITOURINARY/GYNECOLOGICAL Hx Genitourinary Disorders: No - PSYCHIATRIC Hx Psychophysiologic Disorder: Yes Hx Anxiety: Yes Hx Depression: Yes Hx Substance Use: No - SURGICAL HISTORY Hx Surgeries: Yes Hx Amputation: Yes (R transmetatarsal amputation) Hx Cardiac Catheterization: Yes Hx Coronary Stent: Yes (x2) Other/Comment: shunt in L arm. Picc VJ. R great toeamp - ANESTHESIA Hx Anesthesia: Yes Hx Anesthesia Reactions: No Hx Malignant Hyperthermia: No Meds Allergies/Adverse Reactions: Allergies Allergy/AdvReac Type Severity Reaction Status Date / Time No Known Allergies Allergy Verified 09/27/17 09:17 - Medications Medications: Current Medications Acetaminophen (Tylenol 325mg Tab) 325 mg PO Q4H PRN PRN Reason: Pain, Mild (1-3) Albuterol/Ipratropium (Duoneb 3 Mg/0.5 Mg (3 Ml) Ud) 3 ml IH [id number] PRN PRN Reason: Shortness of Breath Last Admin: 11/09/17 07:59 Dose: 3 ml Carvedilol (Coreg) 25 mg PO BID [facility] Last Admin: 11/09/17 10:04 Dose: Not Given Fluoxetine HCl (Prozac) 20 mg PO DAILY [facility] Last Admin: 11/09/17 10:08 Dose: 20 mg Hydrocortisone (Anusol-Hc) 0 gm MS TID [facility] Last Admin: 11/09/17 10:07 Dose: 1 applic Oxycodone/Acetaminophen (Percocet 5/325 Mg Tab) 1 tab PO Q4H PRN PRN Reason: Pain, severe (8-10) Stop: 11/11/17 21:11 Last Admin: 11/09/17 04:40 Dose: 1 tab Sevelamer HCl (Renagel) 800 mg PO AC [facility] Last Admin: 11/09/17 07:59 Dose: 800 mg Sitagliptin Phosphate (Januvia) 25 mg PO DAILY [facility] Last Admin: 11/09/17 10:08 Dose: 25 mg Tamsulosin HCl (Flomax) 0.4 mg PO DAILY [facility] Last Admin: 11/09/17 10:08 Dose: 0.4 mg Physical Exam - Constitutional Additional comments: Anxious - Head Exam Head Exam: NORMAL INSPECTION - Eye Exam Eye Exam: Normal appearance Pupil Exam: NORMAL ACCOMODATION Additional comments: right eye blind - ENT Exam ENT Exam: Mucous Membranes Moist - Neck Exam Neck exam: Positive for: Normal Inspection - Respiratory Exam Respiratory Exam: Decreased Breath Sounds, Rhonchi Additional comments: mild shortness of breath on oxygen - Cardiovascular Exam Cardiovascular Exam: REGULAR RHYTHM, +S1, +S2 - GI/Abdominal Exam GI & Abdominal Exam: Normal Bowel Sounds, Soft Additional comments: constipated - Extremities Exam Additional comments: dry, right great toe amputated - Neurological Exam Neurological exam: Alert, Oriented x3 - Psychiatric Exam Psychiatric exam: Anxious, Depressed - Skin Skin Exam: Dry, Normal Color, Warm Results - Vital Signs Recent Vital Signs: Last Vital Signs Temp 98.2 F 11/09/17 06:00 Pulse 77 11/09/17 10:04 Resp 20 11/09/17 06:00 BP 90/63 L 11/09/17 10:04 Pulse Ox 100 11/09/17 06:00 - Labs Result Diagrams: 11/08/17 16:50 11/08/17 16:50 Labs: Laboratory Results - last 24 hr 11/08/17 11/09/17 11/09/17 20:30 07:12 08:10 pO2 46 VBG pH 7.29 L VBG pCO2 71.0 H* VBG HCO3 34.1 H VBG Total CO2 36.3 H VBG O2 Sat (Calc) 79.6 H VBG Base Excess 5.1 H VBG Potassium 3.5 L Sodium 137.0 Chloride 97.0 L Glucose 218 H Lactate 2.6 H FiO2 21.0 POC Glucose (mg/dL) 182 H Troponin I 0.16 H* Venous Blood Potassium 3.5 L Assessment & Plan - Assessment and Plan (Free Text) Assessment: Patient known to Service. Review of previous procedure: Stress test 11/24/16 Fixed inferior and inferolateral defects suggestive of prevoius OR injury Moderate to severe LV dysfunction with diffuse hypokinesis worse in inerolateral Worsening of perfusion defect with deterioration of contactility compared to previous study 2014 Echocardiogram 01/14/17 Severe LV dysfunction with Global hypokinesis Moderate MR, Moderate TR, LVEF 29.7% Cardiac Catheterization 03/26/15 Patent stents in LAD and Cx Non Dominant RCA diffusely diseased LVEF 25% Ischemic cardiomyopathy IMPRESSION: Worsening shortness of breath with chest tightness, history of Type 2 diabetes mellitus, hypertension, history of congestive heart failure,ischemic cardiomyopathy, COPD,end stage renal disease on hemodialysis 3 x a week last yesterday, left arm AV shunt , peripheral vascular disease -right great toe amputation. Less SOB after hemodialysis yesterday. Plan: Will treat conservatively Chest X ray yesterday, no significant findings, no fluid overload Had hemodialysis yesterday Breathing better today than yesterday, on nasal cannula Abdominal X ray, normal Complaining of constipation, had enema Continue Coreg Will closely follow up Plan and treatment discussed with Dr. Tejeda Thank you Dr. Francis for including us in the care of Mr. Jf Amos - Date & Time Date: 11/09/17 Time: 08:00
--- NOTE | 2017-11-09 11:18 | CARD ---
APPROVED REPORT EKG Measurement Heart [id number] <Conclusion> Sinus rhythm with one premature ventricular complex Low voltage QRS STTW changes c/w ischemia Prolonged QTc
--- NOTE | 2017-11-09 13:53 | RAD ---
HISTORY: constipation COMPARISON: No prior. FINDINGS: BOWEL: Normal. No obstruction. No free air. BONES: Normal. OTHER FINDINGS: None. IMPRESSION: No active disease.
[2017-11-09] MEDS ORDERED: Azithromycin 500MG/NS 250ml 500 MG/250 ML BAG IVPB STA (15:20)
--- NOTE | 2017-11-09 16:27 | CP.PCM.CON ---
<Fernandez Villanueva - Last Filed: 11/09/17 16:21> History of Present Illness - History of Present Illness History of Present Illness: Consult Podiatry Note- Dr. Smith 67 year old male patient PMHx ESRD on HD MWF, DM, HTN, COPD, hx of OM seen and evaluated at bedside s/p right TMA and left hallux pain. Patient was sent to the ED after visiting the wound care center yesterday by Dr. Smith. Patient was seen having difficulty speaking with association shortness of breathe and chest tightness. Patient appeared to be fatigue and weak, and was sent to the ED for an evaluation. Patient is seen resting comfortably in bed, in NAD today, and AA0x3. Patient complains of little pain to his bilateral foot. He reports pain to his "bottom". He denies nausea, fever, chills or chest pain at this moment. He reports the same shortness of breath. Patient denies acute overnight events. No new pedal complaints at this time. Past Patient History - Infectious Disease Hx of Infectious Diseases: None - Tetanus Immunizations Tetanus Immunization: Unknown - Past Medical History & Family History Past Medical History?: Yes - Past Social History Smoking Status: Former Smoker - CARDIAC Hx Cardiac Disorders: Yes Hx Congestive Heart Failure: Yes Hx Hypercholesterolemia: Yes Hx Hypertension: Yes (&hypotension) Hx Pacemaker: No Hx Peripheral Vascular Disease: Yes - PULMONARY Hx Respiratory Disorders: Yes Hx Chronic Obstructive Pulmonary Disease (COPD): Yes Hx Pneumonia: Yes - NEUROLOGICAL Hx Neurological Disorder: No - HEENT Hx HEENT Problems: Yes (diabetic retinopathy) Hx Blind: Yes (R eye) - RENAL Hx Chronic Kidney Disease: Yes Hx Dialysis: Yes (MWF) Date of Last Dialysis Treatment: 11/08/17 Hx Renal Failure: Yes - ENDOCRINE/METABOLIC Hx Endocrine Disorders: Yes Hx Diabetes Mellitus Type 2: Yes - HEMATOLOGICAL/ONCOLOGICAL Hx Blood Disorders: Yes Hx Anemia: Yes Hx Hepatitis A: Yes - INTEGUMENTARY Hx Dermatological Problems: Yes Other/Comment: hx of wounds due to diabetes multiple skin discolorations and dry skin both legs, pressure ulcer to sacrum - MUSCULOSKELETAL/RHEUMATOLOGICAL Hx Falls: No - GASTROINTESTINAL Hx Gastrointestinal Disorders: Yes Hx Constipation: Yes Hx Gastroesophageal Reflux: Yes Other/Comment: constipation - GENITOURINARY/GYNECOLOGICAL Hx Genitourinary Disorders: No - PSYCHIATRIC Hx Psychophysiologic Disorder: Yes Hx Anxiety: Yes Hx Depression: Yes Hx Substance Use: No - SURGICAL HISTORY Hx Surgeries: Yes Hx Amputation: Yes (R transmetatarsal amputation) Hx Cardiac Catheterization: Yes Hx Coronary Stent: Yes (x2) Other/Comment: shunt in L arm. Picc VJ. R great toeamp - ANESTHESIA Hx Anesthesia: Yes Hx Anesthesia Reactions: No Hx Malignant Hyperthermia: No Meds Allergies/Adverse Reactions: Allergies Allergy/AdvReac Type Severity Reaction Status Date / Time No Known Allergies Allergy Verified 09/27/17 09:17 - Medications Medications: Current Medications Acetaminophen (Tylenol 325mg Tab) 325 mg PO Q4H PRN PRN Reason: Pain, Mild (1-3) Last Admin: 11/09/17 14:26 Dose: 325 mg Albuterol/Ipratropium (Duoneb 3 Mg/0.5 Mg (3 Ml) Ud) 3 ml IH [id number] PRN PRN Reason: Shortness of Breath Last Admin: 11/09/17 14:00 Dose: 3 ml Azithromycin (Zithromax) 250 mg PO DAILY [facility] PRN Reason: Protocol Stop: 11/13/17 23:59 Carvedilol (Coreg) 25 mg PO BID [facility] Last Admin: 11/09/17 10:04 Dose: Not Given Fluoxetine HCl (Prozac) 20 mg PO DAILY [facility] Last Admin: 11/09/17 10:08 Dose: 20 mg Guaifenesin/Codeine Phosphate (Robitussin W/Codeine) 5 ml PO Q4H PRN PRN Reason: Cough and congestion Stop: 11/11/17 23:59 Hydrocortisone (Anusol-Hc) 0 gm NM TID [facility] Last Admin: 11/09/17 14:26 Dose: 1 applic Azithromycin (Zithromax 500mg In Ns) 500 mg in 250 mls @ 167 mls/hr IVPB STAT STA PRN Reason: Protocol Stop: 11/09/17 16:49 Last Admin: 11/09/17 15:58 Dose: 167 mls/hr Oxycodone/Acetaminophen (Percocet 5/325 Mg Tab) 1 tab PO Q4H PRN PRN Reason: Pain, severe (8-10) Stop: 11/11/17 21:11 Last Admin: 11/09/17 16:01 Dose: 1 tab Sevelamer HCl (Renagel) 800 mg PO AC [facility] Last Admin: 11/09/17 11:30 Dose: Not Given Sitagliptin Phosphate (Januvia) 25 mg PO DAILY [facility] Last Admin: 11/09/17 10:08 Dose: 25 mg Tamsulosin HCl (Flomax) 0.4 mg PO DAILY [facility] Last Admin: 11/09/17 10:08 Dose: 0.4 mg Physical Exam - Constitutional Appears: Well, Non-toxic, Toxic - Extremities Exam Extremities exam: Negative for: calf tenderness Additional comments: DERM: Right foot trans-metatarsal amputation amputation site noted with all sutures and cooper intact. No dehiscence noted. No productive drainage or fluctuance noted. Flap site is cool to touch. Color to flap WNL. No clinical signs of infection VASC: DP and PT pulses weakly palpable graded 1/4. Temperature gradient cool to cool from proximal to distal. No edema noted to lower extremity. NEURO: Gross sensation diminished ORTHO: pain with palpation to surgical site Dressing to the left hallux is clean, dry and intact without strikethrough noted. - Neurological Exam Neurological exam: Alert, Oriented x3 - Psychiatric Exam Psychiatric exam: Normal Affect, Normal Mood Results - Vital Signs Recent Vital Signs: Last Vital Signs Temp 97.7 F 11/09/17 11:40 Pulse 74 11/09/17 14:00 Resp 18 11/09/17 11:40 BP 108/65 11/09/17 11:40 Pulse Ox 100 11/09/17 06:00 - Labs Result Diagrams: 11/08/17 16:50 11/08/17 16:50 Labs: Laboratory Results - last 24 hr 11/08/17 11/09/17 11/09/17 20:30 07:12 08:10 pO2 46 VBG pH 7.29 L VBG pCO2 71.0 H* VBG HCO3 34.1 H VBG Total CO2 36.3 H VBG O2 Sat (Calc) 79.6 H VBG Base Excess 5.1 H VBG Potassium 3.5 L Sodium 137.0 Chloride 97.0 L Glucose 218 H Lactate 2.6 H FiO2 21.0 POC Glucose (mg/dL) 182 H Troponin I 0.16 H* Venous Blood Potassium 3.5 L 11/09/17 11/09/17 11:16 16:19 pO2 VBG pH VBG pCO2 VBG HCO3 VBG Total CO2 VBG O2 Sat (Calc) VBG Base Excess VBG Potassium Sodium Chloride Glucose Lactate FiO2 POC Glucose (mg/dL) 177 H 167 H Troponin I Venous Blood Potassium Assessment & Plan - Assessment and Plan (Free Text) Assessment: 67 year old male patient PMHx ESRD on HD MWF, DM, HTN, COPD, hx of OM seen and evaluated at bedside s/p right TMA and left hallux pain. Plan: Patient seen and evaluated at bedside. Discussed with attending, Dr. Smith. who endorsed the following plan. Chart, labs, and vitals reviewed. Afebrile, absent leukocytosis WBC 10.1 Cleansed wound site with saline. Dressed with betadine, adaptic, and DSD and kerlix Dressings to remain clean, dry, and intact. Do not get wet Vascular consult for left LE ischemic changes, thank you Patient to limit WB for transfers only with forefoot offloading shoes. Upon discharge: Change dressing every 2 days: clean surgical site with saline solution, paint with betadine and dress with dsd, abd, and kerlix. Patient to follow up in wound care in [address] Smith Patient weight bear status is limited WB for transfers only with forefoot offloading shoes. Pt to remains NWB with aid of axillary crutches majority of time Podiatry will continue to follow while inhouse. <Caroline Smith - Last Filed: 11/12/17 15:58> Results - Vital Signs Recent Vital Signs: Last Vital Signs Temp 97.8 F 11/12/17 07:30 Pulse 61 11/12/17 07:30 Resp 18 11/12/17 07:30 BP 103/66 11/12/17 07:30 Pulse Ox 100 11/12/17 07:30 - Labs Result Diagrams: 11/12/17 07:00 11/12/17 07:00 Labs: Laboratory Results - last 24 hr 11/11/17 11/11/17 11/12/17 17:20 23:52 07:00 WBC 6.8 D RBC 3.42 L Hgb 10.0 L Hct 32.3 L MCV 94.4 MCH 29.2 MCHC 31.0 RDW 16.9 H Plt Count 160 MPV 12.0 H Gran % 84.2 H Lymph % (Auto) 9.5 L Will % (Auto) 6.1 H Eos % (Auto) 0.1 L Baso % (Auto) 0.1 Gran # 5.74 Lymph # (Auto) 0.7 L Will # (Auto) 0.4 Eos # (Auto) 0.0 Baso # (Auto) 0.01 Sodium Potassium Chloride Carbon Dioxide Anion Gap BUN Creatinine Est GFR ( Amer) Est GFR (Non-Af Amer) POC Glucose (mg/dL) 143 H 168 H Random Glucose Calcium Phosphorus Magnesium Total Bilirubin AST ALT Alkaline Phosphatase Total Protein Albumin Globulin Albumin/Globulin Ratio 11/12/17 11/12/17 11/12/17 07:00 07:22 11:55 WBC RBC Hgb Hct MCV MCH MCHC RDW Plt Count MPV Gran % Lymph % (Auto) Will % (Auto) Eos % (Auto) Baso % (Auto) Gran # Lymph # (Auto) Will # (Auto) Eos # (Auto) Baso # (Auto) Sodium 136 Potassium 4.4 Chloride 96 L Carbon Dioxide 28 Anion Gap 17 BUN 60 H Creatinine 4.4 H Est GFR ( Amer) 16 Est GFR (Non-Af Amer) 14 POC Glucose (mg/dL) 182 H 155 H Random Glucose 172 H Calcium 8.8 Phosphorus 4.1 Magnesium 4.2 H Total Bilirubin 0.9 AST 17 ALT 25 Alkaline Phosphatase 185 H Total Protein 5.3 L Albumin 2.6 L Globulin 2.7 Albumin/Globulin Ratio 1.0 L Attending/Attestation - Attestation I have personally seen and examined this patient.: Yes I have fully participated in the care of the patient.: Yes I have reviewed all pertinent clinical information: Yes
[2017-11-09 18:24] LABS: ARTERIAL BLOOD GAS HCO3 25.8 mmol/L (21-28); ARTERIAL BLOOD GAS O2 SAT 99.2 % (95-98); ARTERIAL BLOOD GAS PCO2 38 mm/Hg (35-45); ARTERIAL BLOOD GAS PH 7.44 (7.35-7.45)
[2017-11-09] MEDS ORDERED: Naloxone 0.4 mg/ml Inj (Adult) IVP ONE (18:41)
--- NOTE | 2017-11-09 18:50 | PCM.RRT ---
<Lizzette Almazan - Last Filed: 11/09/17 19:38> CASHIER Nurse Assessment - Situation Date: 11/09/17 Time CASHIER was called: 18:09 CASHIER Responder Arrival Time: 18:11 CASHIER Location:: [address] [place] [address] Room Number: [id number] CASHIER Reason for Call: Respiratory Distress, Change in Mental Status CASHIER Called By: RN - IV IV Inserted during CASHIER?: No - Respiratory Oxygen Delivery Method: Face Mask @% Oxygen Flow Rate: 10 Received Nebulizer Treatments:: No Was the Patient Ventilated with Bag/Mask 100% O2?: Yes Secretions Suctioned?: No Was the Patient Intubated?: No Was the Patient Placed on a Ventilator?: No (bringing to icu to intubate) - Medication Medications Administered During CASHIER: none - Diagnostic Test Ordered EKG: Yes Chest X-Ray: Yes CT Scan: Yes - Stat Labs Ordered CASHIER Stat Labs Ordered: CBC, BMP, TROPONIN, LACTIC ACID, ABG CASHIER Other Labs Ordered: VBG, Mg, Phos CPR started during CASHIER?: No - Vital Signs Vital Sign: Rapid Response Vital Sign Blood Pressure 92/74 Pulse Rate 53 Respiratory Rate 10 Oxygen Saturation 73 - Finger Stick Blood Glucose Finger Stick Blood Glucose: 165 - Mayra Coma Scale Coma Scale Eye Opening: Spontaneous Coma Scale Motor: Movement to pain stimulus Coma Scale Verbal: Confused/able to answer - Recommendations 5) CASHIER Level of Care Recommendations: Transfer to ICU Notifications: Attending Physician, Consultations I.Reason for CASHIER - A) Acute Change in Patient: (Select all that apply): Staff member or family is worried about patient, Acute change in mental status Subjective: Patient is a PMHx ESRD on HD MWF, DM, HTN, COPD admitted with chest pain r/o ACS , being treated for CAP, s/p HD yesterday, and s/p bowl regiments for constipation, CASHIER called due to changes in mental status. As per patient's nurse , since dialysis yesterday, patient has been complaining of feeling weak and short of breath. Patient has been having diarrhea since yesterday after receiving bowel regiments for constipation. Patient then became non verbal tonight. Upon checking vitals, patient was noted to be desaturating to 70s and appears altered, thus CASHIER was called. SBP was in the 90s, with HR in the 50s, patient was afebrile, and glucose was in the 90s. Patient had ABG revealing pco2 of 38, po2 of 371, and lactic acid of 3.9. During the course of CASHIER, patient stopped breathing and was unresponsive, but had pulse. Patient was going to get intubated but then started talking again, thus intubation was held off. Patient is to be transferred to ICU for further management. - Neurological Status (Select all that apply): Disoriented, Lethargic - Respiratory Oxygen Delivery Method: Face Mask @% Oxygen Flow Rate: 10 - Constitutional Appears: Older Than Stated Age, Confused, Cachectic, Chronically Ill - Head Head Exam: ATRAUMATIC, NORMAL INSPECTION, NORMOCEPHALIC - Eyes Eye Exam: Normal appearance - Respiratory Exam Respiratory Exam: Rhonchi. absent: Chest Wall Tenderness, Prolonged Expiratory Phase, Rales, Wheezes, Respiratory Distress, Stridor, NORMAL BREATHING PATTERN ( apneic) - Cardiovascular Exam Cardiovascular Exam: Bradycardia, REGULAR RHYTHM, RRR, +S1, +S2. absent: Gallop , Rubs, Murmur - GI/Abdominal Exam GI & Abdominal Exam: Soft, Normal Bowel Sounds. absent: Distended, Firm, Guarding, Rigid, Tenderness - Neurological Exam Additional exam: Patient with waxing and waning mentation. Patient was at times alert, and talking then became, apneic, and non verbal. - Extremities Exam Extremities Exam: absent: Normal Inspection (s/p amputed toes on the left, + multiple rashes. ) Plan - Assessment of Findings&Treatment Plan - Will obtain stat cbc, cmp, mag and phos, ammonia level, stat CT head to r/o any acute ischemic changes. - Stat ekg, and chest x-ray - Patient to be transferred to ICU for further management. Patient seen, examined and case discussed with Dr Null, and Laureen. Dr Guan happened to be rounding at the time and was informed. Dr Agarwal, patient's primary was also informed. <Monika Null - Last Filed: 11/09/17 22:25> CASHIER Nurse Assessment - Vital Signs Vital Sign: Rapid Response Vital Sign Blood Pressure 92/74 Pulse Rate 53 Respiratory Rate 10 Oxygen Saturation 73 Attending/Attestation - Attestation I have personally seen and examined this patient.: Yes I have fully participated in the care of the patient.: Yes I have reviewed all pertinent clinical information, including history, physical exam and plan: Yes
--- NOTE | 2017-11-09 18:50 | CP.PCM.CON ---
<Lizzette Almazan - Last Filed: 11/09/17 21:18> History of Present Illness - History of Present Illness History of Present Illness: ICU consult note for Dr Garduno Reason for consult: CROWNING INSPECTOR, AMS Patient is a PMHx of ESRD on HD MWF, DM, HTN, PAD, COPD admitted with chest pain , rectal pain and worsening sob, being treated for CAP, s/p HD yesterday, CROWNING INSPECTOR called due to changes in mental status. As per patient's nurse, since dialysis yesterday, patient has been complaining of feeling weak and short of breath. Patient had diarrhea since yesterday after receiving bowel regiments for constipation. Patient became altered tonight, was noted to be desaturating to 70s thus CROWNING INSPECTOR was called. SBP was in the 90s, with HR in the 50s, patient was afebrile, and glucose was in the 90s. Patient had ABG revealing pco2 of 38, po2 of 371 on non-rebreather, and lactic acid of 3.9. During the course of CROWNING INSPECTOR, patient stopped breathing and was unresponsive, but had pulse. Patient was to be intubated but then became more awake, started talking, thus intubation was held off. Patient is to be transferred to ICU for further management. Unable to obtain ROS due to mentation. PMHx: ESRD on HD MWF, DM, HTN, PAD, COPD, PAD PSHX: Left av fistula, amputated right foot FMHx: unable to obtain due to mentation Social: unable to obtain due to mentation Allergy: NKDA Home meds: as per chart. Review of Systems - Review of Systems Systems not reviewed;Unavailable: Altered Mental Status Past Patient History - Infectious Disease Hx of Infectious Diseases: None - Tetanus Immunizations Tetanus Immunization: Unknown - Past Medical History & Family History Past Medical History?: Yes - Past Social History Smoking Status: Former Smoker Home Situation {Lives}: Longterm - CARDIAC Hx Cardiac Disorders: Yes Hx Congestive Heart Failure: Yes Hx Hypercholesterolemia: Yes Hx Hypertension: Yes (&hypotension) Hx Pacemaker: No Hx Peripheral Vascular Disease: Yes - PULMONARY Hx Respiratory Disorders: Yes Hx Chronic Obstructive Pulmonary Disease (COPD): Yes Hx Pneumonia: Yes - NEUROLOGICAL Hx Neurological Disorder: No - HEENT Hx HEENT Problems: Yes (diabetic retinopathy) Hx Blind: Yes (R eye) - RENAL Hx Chronic Kidney Disease: Yes Hx Dialysis: Yes (MWF) Date of Last Dialysis Treatment: 11/08/17 Hx Renal Failure: Yes - ENDOCRINE/METABOLIC Hx Endocrine Disorders: Yes Hx Diabetes Mellitus Type 2: Yes - HEMATOLOGICAL/ONCOLOGICAL Hx Blood Disorders: Yes Hx Anemia: Yes Hx Hepatitis A: Yes - INTEGUMENTARY Hx Dermatological Problems: Yes Other/Comment: hx of wounds due to diabetes multiple skin discolorations and dry skin both legs, pressure ulcer to sacrum - MUSCULOSKELETAL/RHEUMATOLOGICAL Hx Falls: No - GASTROINTESTINAL Hx Gastrointestinal Disorders: Yes Hx Constipation: Yes Hx Gastroesophageal Reflux: Yes Other/Comment: constipation - GENITOURINARY/GYNECOLOGICAL Hx Genitourinary Disorders: No - PSYCHIATRIC Hx Psychophysiologic Disorder: Yes Hx Anxiety: Yes Hx Depression: Yes Hx Substance Use: No - SURGICAL HISTORY Hx Surgeries: Yes Hx Amputation: Yes (R transmetatarsal amputation) Hx Cardiac Catheterization: Yes Hx Coronary Stent: Yes (x2) Other/Comment: shunt in L arm. Picc VJ. R great toeamp - ANESTHESIA Hx Anesthesia: Yes Hx Anesthesia Reactions: No Hx Malignant Hyperthermia: No Meds Allergies/Adverse Reactions: Allergies Allergy/AdvReac Type Severity Reaction Status Date / Time No Known Allergies Allergy Verified 09/27/17 09:17 - Medications Medications: Current Medications Acetaminophen (Tylenol 325mg Tab) 325 mg PO Q4H PRN PRN Reason: Pain, Mild (1-3) Last Admin: 11/09/17 14:26 Dose: 325 mg Albuterol/Ipratropium (Duoneb 3 Mg/0.5 Mg (3 Ml) Ud) 3 ml IH [id number] PRN PRN Reason: Shortness of Breath Last Admin: 11/09/17 14:00 Dose: 3 ml Azithromycin (Zithromax) 250 mg PO DAILY [facility] PRN Reason: Protocol Stop: 11/13/17 23:59 Carvedilol (Coreg) 25 mg PO BID [facility] Last Admin: 11/09/17 10:04 Dose: Not Given Fluoxetine HCl (Prozac) 20 mg PO DAILY [facility] Last Admin: 11/09/17 10:08 Dose: 20 mg Guaifenesin/Codeine Phosphate (Robitussin W/Codeine) 5 ml PO Q4H PRN PRN Reason: Cough and congestion Stop: 11/11/17 23:59 Hydrocortisone (Anusol-Hc) 0 gm KS TID [facility] Last Admin: 11/09/17 14:26 Dose: 1 applic Oxycodone/Acetaminophen (Percocet 5/325 Mg Tab) 1 tab PO Q4H PRN PRN Reason: Pain, severe (8-10) Stop: 11/11/17 21:11 Last Admin: 11/09/17 16:01 Dose: 1 tab Sevelamer HCl (Renagel) 800 mg PO AC [facility] Last Admin: 11/09/17 16:23 Dose: Not Given Sitagliptin Phosphate (Januvia) 25 mg PO DAILY [facility] Last Admin: 11/09/17 10:08 Dose: 25 mg Tamsulosin HCl (Flomax) 0.4 mg PO DAILY [facility] Last Admin: 11/09/17 10:08 Dose: 0.4 mg Physical Exam - Constitutional Appears: Older Than Stated Age, Confused, Cachectic, Chronically Ill - Head Exam Head Exam: ATRAUMATIC, NORMAL INSPECTION - Eye Exam Eye Exam: Normal appearance. absent: Scleral icterus - ENT Exam ENT Exam: Mucous Membranes Dry - Neck Exam Neck exam: Positive for: Normal Inspection - Respiratory Exam Respiratory Exam: Rhonchi. absent: Decreased Breath Sounds, Clear to Auscultation Bilateral, Prolonged Expiratory Phase, Rales, Wheezes, Respiratory Distress, Stridor, NORMAL BREATHING PATTERN - Cardiovascular Exam Cardiovascular Exam: Bradycardia, REGULAR RHYTHM, RRR, +S1, +S2. absent: Tachycardia, Irregular Rhythm, Systolic Murmur - GI/Abdominal Exam GI & Abdominal Exam: Normal Bowel Sounds, Soft. absent: Distended, Guarding, Rebound, Rigid, Tenderness - Extremities Exam Extremities exam: Negative for: pedal edema Additional comments: Right lower extremity with amputated foot, + skin rashes in lower extremities, with ulcerations. - Back Exam Back exam: rash noted - Neurological Exam Additional comments: waxing and waning mental status. no focal deficit noted. - Skin Skin Exam: Dry, Rash Results - Vital Signs Recent Vital Signs: Last Vital Signs Temp 97.4 F L 11/09/17 18:00 Pulse 130 H 11/09/17 18:00 Resp 18 11/09/17 18:00 BP 95/67 L 11/09/17 18:00 Pulse Ox 100 11/09/17 06:00 - Labs Result Diagrams: 11/08/17 16:50 11/09/17 19:20 Labs: Laboratory Results - last 24 hr 11/09/17 11/09/17 16:19 18:20 pCO2 38 pO2 371.0 H HCO3 25.8 ABG pH 7.44 ABG Total CO2 27.0 ABG O2 Saturation 99.2 H ABG Base Excess 1.7 ABG Potassium 4.8 Sodium 133.0 Chloride 102.0 Glucose 163 H Lactate 3.9 H FiO2 100.0 POC Glucose (mg/dL) 167 H Arterial Blood Potassium 4.8 Assessment & Plan - Assessment and Plan (Free Text) Assessment: Patient is a PMHx of ESRD on HD MWF, DM, HTN, PAD, COPD admitted with chest pain , rectal pain and worsening sob, being treated for CAP, s/p HD yesterday, CROWNING INSPECTOR called due to changes in mental status, and periods of hypoxia/apnea. Upon reviewing chart it appeared patient received percocet 2 hours prior to changes in mentation. around Patient is to be transferred to ICU for further management and monitoring. Plan: Neuro: AMS likely due toxic metabolic encephalopathy versus narcotic, r/o cva - ammonia level normal - s/p a dose of narcan with improvement in mentation - Will obtain stat CT head w/o contrast - Neuro checks Pulm- SOB with hypoxia on room likely due to chf exacerbation versus cap - Patient is not hypoxemic and not hypercapneic on ABG - will keep patient on non rebreather, and switch to nasal cannula as the mentation improves - Continue to duoneb, head of bed above 35 degrees - Patient is also being treated for possible CAP, on abx. Cardiac:- h/o systolic CHF with LVEF of 29.7 Patient appears to be hypovolemic, will hold off Lasix. Coreg on hold due to BP. - Elevated troponin with no significant changes in ekg compared to previous ekg Troponin has trended down compared to admission continue with asa - Transient hypotension- will hold BP meds for now. ID: On Zithromax for CAP, will add procal, repeat chest x-ray. currently afebrile, no leukocytosis. blood cultures are pending. Renal: Elevated lactic acid, with normal ABG- likely due to poor clearance from ESRD, will continue to trend. ESRD- s/p hr yesterday, HD due tomorrow. continue renagel. Endo: H/o DM- will start insulin sliding scale, fingerstick q6. Hold po DM meds. Heme: Anemia likely due to ESRD, H/H stable, will monitor for now. GI: ppi for gi prophylaxis. NPO for now due to mentation. Diarrhea likely due to laxatives- will monitor for now. DVT prophylaxis: heparin sc. Patient seen, examined and case discussed with Dr Garduno. - Date & Time Date: 11/09/17 Time: 21:00 <Laureen BATISTA,Rufus - Last Filed: 11/10/17 07:41> Meds - Medications Medications: Current Medications Acetaminophen (Tylenol 325mg Tab) 325 mg PO Q4H PRN PRN Reason: Pain, Mild (1-3) Last Admin: 11/09/17 14:26 Dose: 325 mg Albuterol/Ipratropium (Duoneb 3 Mg/0.5 Mg (3 Ml) Ud) 3 ml IH [id number] PRN PRN Reason: Shortness of Breath Last Admin: 11/09/17 14:00 Dose: 3 ml Aspirin (Aspirin Chewable) 81 mg PO DAILY [facility] Azithromycin (Zithromax) 250 mg PO DAILY [facility] PRN Reason: Protocol Stop: 11/13/17 23:59 Carvedilol (Coreg) 25 mg PO BID [facility] Last Admin: 11/09/17 18:00 Dose: Not Given Fluoxetine HCl (Prozac) 20 mg PO DAILY [facility] Last Admin: 11/09/17 10:08 Dose: 20 mg Guaifenesin/Codeine Phosphate (Robitussin W/Codeine) 5 ml PO Q4H PRN PRN Reason: Cough and congestion Stop: 11/11/17 23:59 Heparin Sodium (Porcine) (Heparin) 5,000 units SC Q12 [facility] PRN Reason: Protocol Last Admin: 11/09/17 22:49 Dose: 5,000 units Hydrocortisone (Anusol-Hc) 0 gm KS TID [facility] Last Admin: 11/09/17 18:00 Dose: Not Given Cefepime HCl (Maxipime 1gm) 1 gm in 100 mls @ 100 mls/hr IVPB Q24H [facility] PRN Reason: Protocol Insulin Human Regular (Humulin R Low) 0 units SC Q6 [facility] PRN Reason: Protocol Last Admin: 11/10/17 06:25 Dose: Not Given Oxycodone/Acetaminophen (Percocet 5/325 Mg Tab) 1 tab PO Q4H PRN PRN Reason: Pain, severe (8-10) Stop: 11/11/17 21:11 Last Admin: 11/09/17 16:01 Dose: 1 tab Sevelamer HCl (Renagel) 800 mg PO AC [facility] Last Admin: 11/09/17 16:23 Dose: Not Given Sitagliptin Phosphate (Januvia) 25 mg PO DAILY [facility] Last Admin: 11/09/17 10:08 Dose: 25 mg Tamsulosin HCl (Flomax) 0.4 mg PO DAILY [facility] Last Admin: 11/09/17 10:08 Dose: 0.4 mg Results - Vital Signs Recent Vital Signs: Last Vital Signs Temp 97.5 F L 11/10/17 04:00 Pulse 63 11/10/17 07:36 Resp 19 11/10/17 07:35 BP 112/44 L 11/10/17 06:00 Pulse Ox 100 11/10/17 06:00 - Labs Result Diagrams: 11/08/17 16:50 11/09/17 19:20 Labs: Laboratory Results - last 24 hr 11/09/17 11/09/17 11/09/17 16:19 18:15 18:20 pCO2 38 pO2 371.0 H HCO3 25.8 ABG pH 7.44 ABG Total CO2 27.0 ABG O2 Saturation 99.2 H ABG Base Excess 1.7 ABG Potassium 4.8 VBG pH VBG pCO2 VBG HCO3 VBG Total CO2 VBG O2 Sat (Calc) VBG Base Excess VBG Potassium Sodium 133.0 Chloride 102.0 Glucose 163 H Lactate 3.9 H FiO2 100.0 Potassium Carbon Dioxide Anion Gap BUN Creatinine Est GFR ( Amer) Est GFR (Non-Af Amer) POC Glucose (mg/dL) 167 H 165 H Random Glucose Calcium Phosphorus Magnesium Ammonia Lactate Dehydrogenase Total Creatine Kinase Troponin I Procalcitonin Arterial Blood Potassium 4.8 Venous Blood Potassium 11/09/17 11/09/17 11/09/17 19:20 19:20 19:20 pCO2 pO2 41 HCO3 ABG pH ABG Total CO2 ABG O2 Saturation ABG Base Excess ABG Potassium VBG pH 7.37 VBG pCO2 48.0 VBG HCO3 27.7 VBG Total CO2 29.2 H VBG O2 Sat (Calc) 75.3 H VBG Base Excess 1.7 VBG Potassium 4.7 Sodium 134 133.0 Chloride 97 L 99.0 Glucose 179 H Lactate 3.9 H FiO2 21.0 Potassium 4.7 Carbon Dioxide 27 Anion Gap 15 BUN 43 H Creatinine 4.0 H Est GFR ( Amer) 18 Est GFR (Non-Af Amer) 15 POC Glucose (mg/dL) Random Glucose 165 H Calcium 8.7 Phosphorus 5.0 H Magnesium 4.1 H Ammonia < 9 L Lactate Dehydrogenase 380 Total Creatine Kinase 33 L Troponin I 0.13 H* Procalcitonin Arterial Blood Potassium Venous Blood Potassium 4.7 11/09/17 11/09/17 11/09/17 19:20 20:08 23:24 pCO2 pO2 HCO3 ABG pH ABG Total CO2 ABG O2 Saturation ABG Base Excess ABG Potassium VBG pH VBG pCO2 VBG HCO3 VBG Total CO2 VBG O2 Sat (Calc) VBG Base Excess VBG Potassium Sodium Chloride Glucose Lactate FiO2 Potassium Carbon Dioxide Anion Gap BUN Creatinine Est GFR ( Amer) Est GFR (Non-Af Amer) POC Glucose (mg/dL) 123 H 166 H Random Glucose Calcium Phosphorus Magnesium Ammonia Lactate Dehydrogenase Total Creatine Kinase Troponin I Procalcitonin 0.83 H Arterial Blood Potassium Venous Blood Potassium 11/10/17 11/10/17 11/10/17 00:15 00:15 05:49 pCO2 pO2 31 HCO3 ABG pH ABG Total CO2 ABG O2 Saturation ABG Base Excess ABG Potassium VBG pH 7.36 VBG pCO2 55.0 VBG HCO3 31.1 H VBG Total CO2 32.8 H VBG O2 Sat (Calc) 55.2 VBG Base Excess 4.2 H VBG Potassium 4.5 Sodium 133.0 Chloride 97.0 L Glucose 169 H Lactate 2.7 H FiO2 21.0 Potassium Carbon Dioxide Anion Gap BUN Creatinine Est GFR ( Amer) Est GFR (Non-Af Amer) POC Glucose (mg/dL) 136 H Random Glucose Calcium Phosphorus Magnesium Ammonia Lactate Dehydrogenase Total Creatine Kinase Troponin I 0.12 Procalcitonin Arterial Blood Potassium Venous Blood Potassium 4.5 11/10/17 06:24 pCO2 pO2 HCO3 ABG pH ABG Total CO2 ABG O2 Saturation ABG Base Excess ABG Potassium VBG pH VBG pCO2 VBG HCO3 VBG Total CO2 VBG O2 Sat (Calc) VBG Base Excess VBG Potassium Sodium Chloride Glucose Lactate FiO2 Potassium Carbon Dioxide Anion Gap BUN Creatinine Est GFR ( Amer) Est GFR (Non-Af Amer) POC Glucose (mg/dL) 134 H Random Glucose Calcium Phosphorus Magnesium Ammonia Lactate Dehydrogenase Total Creatine Kinase Troponin I Procalcitonin Arterial Blood Potassium Venous Blood Potassium Attending/Attestation - Attestation I have personally seen and examined this patient.: Yes I have fully participated in the care of the patient.: Yes I have reviewed all pertinent clinical information: Yes Notes (Text): -I agree with the above ICU consult note completed by the resident physician with the following additions and/or changes: -The patient is a 67 year old man with a history of ischemic cardiomyopathy (EF= 25%), HTN, IDDM, COPD, ESRD (M/W/F), PAD and right foot amputation, who was admitted yesterday to the telemetry for chest pain (r/o ACS) and community acquired pneumonia. Early this evening, an CROWNING INSPECTOR was called after the patient suddenly became altered (essentially unresponsive, per RN report) and hypoxic ( 70s). Initial plan was to intubate for airway protection. However, right before intubation, the patients mentation appeared to improve. Also, at that time, results of stat ABG were: 7.44/38/371 (on 100%). As a result, the patient will be upgraded to the ICU overnight for closer monitoring (and work-up of transient AMS/hypoxic event). Of note, the patient is somewhat of a poor and unreliable historian. Serial trops and EKGs have been ordered and baby ASA given. CT-head negative for acute findings. BMP also relatively normal. Cardiology is already on board and the patient is already on empiric IV antibiotics. Procalcitonin and repeat lactic acid has been ordered. Critical Care Time Spent: 90-120 minutes
[2017-11-09 19:25] LABS: VENOUS BLOOD GAS BASE EXCESS 1.7 mmol/L (0.0-2.0); VENOUS BLOOD GAS PO2 41 mm/Hg (30-55); VENOUS BLOOD PH 7.37 (7.32-7.43)
[2017-11-09 19:39] LABS: CALCIUM 8.7 mg/dL (8.4-10.5)
[2017-11-09 19:51] LABS: TROPONIN I 0.13 ng/mL
[2017-11-09] MEDS: Insulin Reg-LOW-Coverage SC SCH (20:00)
[2017-11-09] MEDS ORDERED: Morphine 2 mg/ml ISec IVP STA (21:48)
[2017-11-09] MEDS ORDERED: Vancomycin 1gm in NS 250ml 1 GM/250 ML BAG IVPB STA (22:33)
[2017-11-09] MEDS ORDERED: Cefepime 1gm in NS 100ml 1 GM/100 ML BAG IVPB STA (22:34)
--- NOTE | 2017-11-10 00:09 | HP ---
CHIEF COMPLAINT AND HISTORY OF PRESENT ILLNESS: This is a 67-year-old male who is coming in to the hospital with complaints of constipation. The patient states he has been having pain in the rectal area secondary to his constipation. He is also complaining of shortness of breath and chest tightness. He had finished dialysis yesterday and stated that his shortness of breath is a lot worse. He was taken to the ER for further evaluation. In the ER, the patient was given laxatives to help move his bowels. He states this morning that he has been having multiple bowel movements. He has been having nausea and vomiting that happened yesterday once. He has no chest pain this morning. He has no weakness in the arms or the legs. He has abdominal cramping. Yesterday, his pain was 8/10. This morning, his pain is better, but he is having diarrhea. REVIEW OF SYMPTOMS: All other review of symptoms are within normal limits except that was mentioned. ALLERGIES: No known drug allergies. HOME MEDICATIONS: Have been reviewed on the [facility]. PAST MEDICAL HISTORY: 1. End-stage renal disease, on hemodialysis. 2. Peripheral arterial disease. 3. Right toe gangrene. 4. Diabetes type 2. 5. Chronic anemia. 6. Secondary hyperparathyroidism. 7. Gait dysfunction. 8. Frailty. SOCIAL HISTORY: He does not smoke, drink or use drugs. FAMILY HISTORY: Noncontributory. PHYSICAL EXAMINATION: VITAL SIGNS: He has a temperature of 97.7, pulse is 74, blood pressure is 108/65, respirations 18. GENERAL: The patient lying in bed, uncomfortable, and in no acute distress. HEENT: Atraumatic and normocephalic. Anicteric sclerae. Moist mucosa. Roff conjunctivae. No oral lesions. NECK: No JVD, anterior and posterior adenopathy, thyromegaly, or bruits. CARDIOVASCULAR: S1 and S2 regular. No murmur, rubs, or gallop. LUNGS: Clear to auscultation bilaterally. No wheezes, rales, or rhonchi. ABDOMEN: Bowel sounds are positive. Soft, nontender and nondistended. No hepatosplenomegaly. No rebound and no guarding EXTREMITIES: No cyanosis, clubbing, or edema. NEUROLOGIC: No facial asymmetry. Tongue is midline. No uvula deviation. Power is 5/5 upper extremity and lower extremity. Sensation intact in upper extremity and lower extremity. PSYCHIATRIC: He is awake, alert and oriented x3. No anxiety or depression. He has normal affect. GENITOURINARY: No CVA tenderness. VASCULAR: 2+ pulses in the carotid pulses and pedal pulses. SKIN: No erythema or nodules SPINE: Shows normal curvature. LABORATORY DATA: His EKG shows sinus rhythm, low-voltage QRS, nonspecific ST changes, QTc is 465. Next, a chest x-ray done, it shows mild cardiomegaly. ASSESSMENT: 1. Constipation. 2. End-stage renal disease, on hemodialysis Monday, Monday, Monday. 3. Hypertension. 4. Dyslipidemia. 5. Diabetes type 2. 6. Peripheral arterial disease. 7. Left arteriovenous fistula. 8. Secondary hyperparathyroidism. 9. Frailty. 10. Gait dysfunction. 11. History of right tibial angioplasty with stent. 12. shows no active disease, no obstruction. 13. Ischemic cardiomyopathy with ejection fraction of 25-30%. 14. Coronary artery disease. PLAN: The patient is currently comfortable. He does have diarrhea, but this is from the laxative that he received yesterday. The patient has previous EF that is about 25-30%. The patient is currently comfortable. He is on aspirin. He is going to get Coreg. He is going to continue with his Januvia for his diabetes. He is on Flomax. The patient is on Prozac for his depression and he is receiving Renagel for his secondary hyperparathyroidism. He is on a heart-healthy diet. He is being followed by Dr. Tejeda. No further intervention is required. Maurice Agarwal MD
[2017-11-10] MEDS ORDERED: Morphine 2 mg/ml ISec IVP STA (00:11)
[2017-11-10 00:49] LABS: VENOUS BLOOD GAS BASE EXCESS 4.2 mmol/L (0.0-2.0); VENOUS BLOOD GAS PO2 31 mm/Hg (30-55); VENOUS BLOOD PH 7.36 (7.32-7.43)
--- NOTE | 2017-11-10 03:24 | CT ---
EXAM: CT Head Without Intravenous Contrast CLINICAL HISTORY: 67 years old, male; Signs and symptoms; Altered mental status/memory loss; Additional info: AMS TECHNIQUE: Axial computed tomography images of the head/brain without intravenous contrast. All CT scans at this facility use one or more dose reduction techniques, viz.: automated exposure control; ma/kV adjustment per patient size (including targeted exams where dose is matched to indication; i.e. head); or iterative reconstruction technique. Coronal and sagittal reformatted images were created and reviewed. COMPARISON: CT - HEAD W/O CONTRAST 2017-09-10 13:00 FINDINGS: Brain: [id number] atrophy. No intracranial hemorrhage. No mass. Minimal decreased attenuation within periventricular white matter. No definite edema. Ventricles: No hydrocephalus. Bones/joints: No acute fracture. Soft tissues: Unremarkable. Vasculature: Atherosclerotic disease of intracranial and extracranial arteries. Sinuses: Scattered minimal to mild mucosal thickening. Mastoid air cells: No mastoid effusion. Orbits: Unremarkable as visualized. IMPRESSION: 1. Nonspecific white matter changes. Acute infarction may be CT occult within first 24 hours. If a focal deficit persists, consider followup CT or MRI for further evaluation. 2. Incidental/non-acute findings are described above.
[2017-11-10] MEDS: Insulin Reg-LOW-Coverage SC SCH ×4 (06:25→19:02)
[2017-11-10 07:53] LABS: VENOUS BLOOD GAS BASE EXCESS 2.8 mmol/L (0.0-2.0); VENOUS BLOOD GAS PO2 110 mm/Hg (30-55); VENOUS BLOOD PH 7.36 (7.32-7.43)
[2017-11-10 07:54] LABS: BASO # 0.01 K/mm3 (0.0-2.0); BASO % 0.1 % (0.0-3.0); GRAN # 9.26 (1.4-6.5); GRAN % 86.2 % (50.0-68.0); HEMOGLOBIN 10.8 g/dL (14.0-18.0); LYMPH # 0.8 (1.2-3.4); LYMPH % 7.4 % (22.0-35.0); MEAN CORPUSCULAR HEMOGLOBIN 29.3 pg (25.0-35.0); MEAN CORPUSCULAR HGB CONC 30.9 g/dl (31.0-37.0); MONO # 0.7 (0.1-0.6); MONO % 6.3 % (1.0-6.0); RBC 3.68 10^6/uL (3.5-6.1); RED CELL DISTRIBUTION WIDTH 16.9 % (11.5-14.5); WHITE BLOOD COUNT 10.7 10^3/ul (4.5-11.0)
[2017-11-10 08:07] LABS: ALBUMIN 2.9 g/dL (3.0-4.8); CALCIUM 8.7 mg/dL (8.4-10.5)
[2017-11-10 08:16] LABS: MEAN CELL VOLUME 95.6 fl (80.0-105.0); TROPONIN I 0.11 ng/mL
--- NOTE | 2017-11-10 09:20 | RAD ---
HISTORY: rapid response COMPARISON: 11/08/2017 FINDINGS: LUNGS: No active pulmonary disease. PLEURA: No significant pleural effusion identified, no pneumothorax apparent. CARDIOVASCULAR: Mild cardiomegaly and aortic tortuosity OSSEOUS STRUCTURES: No significant abnormalities. VISUALIZED UPPER ABDOMEN: Normal. OTHER FINDINGS: None. IMPRESSION: No active disease.
--- NOTE | 2017-11-10 09:21 | CON ---
DATE: 11/09/2017 REASON FOR ADDENDUM: Patient complains of bringing phlegm and atypical chest pain, it was very tender and hurts when taking a deep breath also and tenderness. We will start empirically Zithromax, get chest x-ray repeat, follow up in the morning. We will start one dose of Zithromax IV because of large volume overload. We will do one dose IV and start 250 from tomorrow for 4 days and we will get chest x-ray and follow up. Thank you, Dr. Agarwal, for providing us the opportunity in taking care of the patient Jf Amos. Katharina Tejeda MD cc: Maurice Agarwal MD
--- NOTE | 2017-11-10 10:07 | RAD ---
HISTORY: F/U pneumonia and compare COMPARISON: 11/09/2017 FINDINGS: LUNGS: No active pulmonary disease. PLEURA: No significant pleural effusion identified, no pneumothorax apparent. CARDIOVASCULAR: Mild cardiomegaly OSSEOUS STRUCTURES: No significant abnormalities. VISUALIZED UPPER ABDOMEN: Normal. OTHER FINDINGS: None. IMPRESSION: No active disease.
--- NOTE | 2017-11-10 10:18 | CON ---
DATE: REFERRING PHYSICIAN: Maurice Agarwal MD. REASON FOR CONSULTATION: Cough, shortness of breath, respiratory insufficiency. HISTORY OF PRESENT ILLNESS: This is a 67-year-old gentleman with past medical history significant for renal failure, dialysis dependant, chronic obstructive lung disease, diabetes, hypertension, peripheral arterial disease, history of right foot partial amputation, admitted with shortness of breath, cough, being treated for pneumonia. This afternoon, he was found lethargic, bradycardia, hypertension. Intubation attempt was made, but the patient became more awake and alert. Heart rate improved. Pulse ox improved. He was transferred to Intensive Care Unit. He is on non-rebreather mask, lethargic but arousable, and follows simple commands. No hemoptysis. No hematemesis. No hematuria. No diarrhea reported. PAST MEDICAL HISTORY: Renal failure, dialysis dependent; chronic obstructive lung disease, hypertension, diabetes, peripheral vascular disease. ALLERGIES: NONE KNOWN. SOCIAL HISTORY: There is no history of reported active smoking or alcohol use. FAMILY HISTORY: No significant cardiopulmonary disease reported. MEDICATIONS: He is on Anusol three times a day, Coreg 25 mg twice a day, DuoNeb q. 6 hours p.r.n., Flomax 0.4 mg daily, heparin 5000 units subcu q. 12 hours, insulin coverage, Januvia 25 mg daily, Percocet 5/325 one tab q. 4 hours p.r.n., Prozac 20 mg daily, Renagel 800 mg before meals, Robitussin with codeine 5 mL q. 4 hours p.r.n., Tylenol p.r.n., Zithromax 250 mg daily. REVIEW OF SYSTEMS: He is lethargic, on non-rebreather mask, follow simple commands, has some cough, no hemoptysis, no hematemesis, no hematuria, no diarrhea. No leg swelling reported. PHYSICAL EXAMINATION: VITAL SIGNS: Temperature is 98, heart rate is 130, respiratory rate is 20, blood pressure 92/74, pulse ox 96% on high-flow mask. HEENT: Moist mucous membrane. Crowded airway. NECK: Supple. No JVD. LUNGS: Have a scattered rhonchi and few wheezing. HEART: S1 and S2. ABDOMEN: Soft, nontender, nondistended. EXTREMITIES: There is no edema. Has the right foot partially amputated. Has dressing. NEUROLOGICAL: Lethargic, arousable. LABORATORY DATA: Shows hemoglobin 9.8, hematocrit 32.1, WBC 10.1, platelet is 156. INR is 1.43, PTT 32. Has an ABG done which shows pH 7.44, pCO2 of 38, O2 of 371, that is on high-flow face mask. Sodium 134, potassium 4.1, chloride 97, bicarbonate 27, BUN 43, creatinine 4.0, glucose is 165, calcium is 8.7, phosphorus 5.7, magnesium 4.1, ammonia level less than 9. LDH is 380, creatine kinase is 33. Troponin is 0.13. Chest x-ray done, some effusion in the right; otherwise, unremarkable chest x-ray. IMPRESSION AND PLAN: Status post , sepsis is being ruled out. They also need to rule out cerebrovascular accident, chronic obstructive lung disease, hypertension, diabetes, renal failure. History of peripheral vascular disease status post partial right foot amputation. Case discussed with hospitalist. Need septic workup. Discontinue all sedatives. May use supplemental oxygen, titrate to pulse ox 92. Thank you and we will follow with you. Katharina Guan MD
[2017-11-10] MEDS: Hydrocortisone 2.5% Rectal Cream(30 gm) PR SCH ×3 (10:30→18:52)
--- NOTE | 2017-11-10 11:41 | PN ---
DATE: 11/10/2017 SUBJECTIVE: The patient is a bit confused from his baseline. He has no complaints of any headaches. Yesterday's rapid response was reviewed. I spoke with the resident. The patient was transferred to the ICU. The patient has no complaint of any chest pain. He says his diarrhea is better than yesterday. PHYSICAL EXAMINATION: VITAL SIGNS: Temperature is 97.5, pulse is 70, blood pressure is 95/64, O2 saturation is 100%. GENERAL: The patient is lying in bed, flat, comfortable. HEENT: No oral lesion. Anicteric sclerae. Moist mucosa. NECK: No JVD, adenopathy, or thyromegaly. CARDIOVASCULAR: S1 and S2, regular. No murmurs, rubs, or gallops. LUNGS: Clear to auscultation bilaterally. No wheeze, rales, or rhonchi. ABDOMEN: Bowel sounds are positive, soft, nontender and nondistended. EXTREMITIES: No cyanosis, clubbing or edema. ASSESSMENT: 1. Delirium. 2. Constipation, improving. 3. End-stage renal disease, on hemodialysis. 4. Shortness of breath. 5. Hypertension. 6. Dyslipidemia. 7. Diabetes type 2. 8. Peripheral arterial disease. 9. Left arteriovenous fistula. 10. Secondary hyperparathyroidism. 11. Frailty. 12. Gait dysfunction. 13. Right tibial angioplasty with stent. 14. Ischemic cardiomyopathy with an ejection fraction of 25% to 30%. 15. Coronary artery disease. PLAN: The patient is being followed by Pulmonary. He did have elevated troponin and he is being followed by Dr. Tejeda and Dr. Mendez. The patient's procalcitonin level is elevated. I will get Dr. Mane to follow the patient. The patient is on aspirin, he is going to continue. He is on carvedilol for his coronary artery disease and CHF. The patient is on Flomax, he is going to have it. He is going to continue sevelamer for his secondary hyperparathyroidism. The patient is on antibiotics. He is being followed by Dr. Smith for his peripheral arterial disease. The patient will remain in the ICU. Maurice Agarwal MD [facility] # [id number] SAAD
[2017-11-10 11:55] LABS: VENOUS BLOOD GAS BASE EXCESS 2.2 mmol/L (0.0-2.0); VENOUS BLOOD GAS PO2 236 mm/Hg (30-55); VENOUS BLOOD PH 7.34 (7.32-7.43)
[2017-11-10] MEDS: guaiFENesin-Codeine 100-10mg/5ml Syrup (5 ml) UD PO PRN (19:03)
[2017-11-10] MEDS: Morphine 2 mg/ml ISec IVP PRN (20:40)
--- NOTE | 2017-11-10 21:02 | CP.PCM.CON ---
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 While admitted, the patient had bouts of hypoxia and was somewhat confused and was sent to the ICU for closer observation. The patient was noted to be better and was sent back to the floors. Infectious Diseases consult is requested to rule out sepsis. Currently the patient is feeling better, no fever or chills, no nausea or vomiting, no has loose stools but he has been given laxatives since he was complaining of conspitation. He denies chest pain, his shortness of breath is improving, no abdominal pain. His right foot is not painful either. Review of Systems - Review of Systems All systems: reviewed and no additional remarkable complaints except (as per HPI ) Past Patient History - Infectious Disease Hx of Infectious Diseases: None - Tetanus Immunizations Tetanus Immunization: Unknown - Past Medical History & Family History Past Medical History?: Yes - Past Social History Smoking Status: Former Smoker Home Situation {Lives}: Prison - CARDIAC Hx Cardiac Disorders: Yes Hx Congestive Heart Failure: Yes Hx Hypercholesterolemia: Yes Hx Hypertension: Yes (&hypotension) Hx Pacemaker: No Hx Peripheral Vascular Disease: Yes - PULMONARY Hx Respiratory Disorders: Yes Hx Chronic Obstructive Pulmonary Disease (COPD): Yes Hx Pneumonia: Yes - NEUROLOGICAL Hx Neurological Disorder: No - HEENT Hx HEENT Problems: Yes (diabetic retinopathy) Hx Blind: Yes (R eye) - RENAL Hx Chronic Kidney Disease: Yes Hx Dialysis: Yes (MWF) Date of Last Dialysis Treatment: 11/08/17 Hx Renal Failure: Yes - ENDOCRINE/METABOLIC Hx Endocrine Disorders: Yes Hx Diabetes Mellitus Type 2: Yes - HEMATOLOGICAL/ONCOLOGICAL Hx Blood Disorders: Yes Hx Anemia: Yes Hx Hepatitis A: Yes - INTEGUMENTARY Hx Dermatological Problems: Yes Other/Comment: hx of wounds due to diabetes multiple skin discolorations and dry skin both legs, pressure ulcer to sacrum - MUSCULOSKELETAL/RHEUMATOLOGICAL Hx Falls: No - GASTROINTESTINAL Hx Gastrointestinal Disorders: Yes Hx Constipation: Yes Hx Gastroesophageal Reflux: Yes Other/Comment: constipation - GENITOURINARY/GYNECOLOGICAL Hx Genitourinary Disorders: No - PSYCHIATRIC Hx Psychophysiologic Disorder: Yes Hx Anxiety: Yes Hx Depression: Yes Hx Substance Use: No - SURGICAL HISTORY Hx Surgeries: Yes Hx Amputation: Yes (R transmetatarsal amputation) Hx Cardiac Catheterization: Yes Hx Coronary Stent: Yes (x2) Other/Comment: shunt in L arm. Picc VJ. R great toeamp - ANESTHESIA Hx Anesthesia: Yes Hx Anesthesia Reactions: No Hx Malignant Hyperthermia: No Meds Allergies/Adverse Reactions: Allergies Allergy/AdvReac Type Severity Reaction Status Date / Time No Known Allergies Allergy Verified 09/27/17 09:17 - Medications Medications: Current Medications Acetaminophen (Tylenol 325mg Tab) 325 mg PO Q4H PRN PRN Reason: Pain, Mild (1-3) Last Admin: 11/09/17 14:26 Dose: 325 mg Albuterol/Ipratropium (Duoneb 3 Mg/0.5 Mg (3 Ml) Ud) 3 ml IH [id number] PRN PRN Reason: Shortness of Breath Last Admin: 11/09/17 14:00 Dose: 3 ml Aspirin (Aspirin Chewable) 81 mg PO DAILY [facility] Azithromycin (Zithromax) 250 mg PO DAILY CURLY PRN Reason: Protocol Stop: 11/13/17 23:59 Carvedilol (Coreg) 25 mg PO BID [facility] Last Admin: 11/09/17 18:00 Dose: Not Given Fluoxetine HCl (Prozac) 20 mg PO DAILY [facility] Last Admin: 11/09/17 10:08 Dose: 20 mg Guaifenesin/Codeine Phosphate (Robitussin W/Codeine) 5 ml PO Q4H PRN PRN Reason: Cough and congestion Stop: 11/11/17 23:59 Heparin Sodium (Porcine) (Heparin) 5,000 units SC Q12 CURLY PRN Reason: Protocol Last Admin: 11/09/17 22:49 Dose: 5,000 units Hydrocortisone (Anusol-Hc) 0 gm MD TID [facility] Last Admin: 11/09/17 18:00 Dose: Not Given Insulin Human Regular (Humulin R Low) 0 units SC Q6 CURLY PRN Reason: Protocol Last Admin: 11/10/17 06:25 Dose: Not Given Oxycodone/Acetaminophen (Percocet 5/325 Mg Tab) 1 tab PO Q4H PRN PRN Reason: Pain, severe (8-10) Stop: 11/11/17 21:11 Last Admin: 11/09/17 16:01 Dose: 1 tab Sevelamer HCl (Renagel) 800 mg PO AC [facility] Last Admin: 11/09/17 16:23 Dose: Not Given Sitagliptin Phosphate (Januvia) 25 mg PO DAILY [facility] Last Admin: 11/09/17 10:08 Dose: 25 mg Tamsulosin HCl (Flomax) 0.4 mg PO DAILY [facility] Last Admin: 11/09/17 10:08 Dose: 0.4 mg Physical Exam - Constitutional Appears: Chronically Ill - Head Exam Head Exam: NORMAL INSPECTION - ENT Exam ENT Exam: Mucous Membranes Moist - Neck Exam Neck exam: Negative for: Meningismus - Respiratory Exam Respiratory Exam: Decreased Breath Sounds - Cardiovascular Exam Cardiovascular Exam: +S1, +S2 - GI/Abdominal Exam GI & Abdominal Exam: Soft. absent: Tenderness Results - Vital Signs Recent Vital Signs: Last Vital Signs Temp 97.5 F L 11/10/17 04:00 Pulse 64 11/10/17 06:00 Resp 22 11/10/17 06:00 BP 112/44 L 11/10/17 06:00 Pulse Ox 100 11/10/17 06:00 - Labs Result Diagrams: 11/10/17 07:30 11/10/17 07:30 Labs: Laboratory Results - last 24 hr 11/09/17 11/09/17 11/09/17 16:19 18:15 18:20 pCO2 38 pO2 371.0 H HCO3 25.8 ABG pH 7.44 ABG Total CO2 27.0 ABG O2 Saturation 99.2 H ABG Base Excess 1.7 ABG Potassium 4.8 VBG pH VBG pCO2 VBG HCO3 VBG Total CO2 VBG O2 Sat (Calc) VBG Base Excess VBG Potassium Sodium 133.0 Chloride 102.0 Glucose 163 H Lactate 3.9 H FiO2 100.0 Potassium Carbon Dioxide Anion Gap BUN Creatinine Est GFR ( Amer) Est GFR (Non-Af Amer) POC Glucose (mg/dL) 167 H 165 H Random Glucose Calcium Phosphorus Magnesium Ammonia Lactate Dehydrogenase Total Creatine Kinase Troponin I Procalcitonin Arterial Blood Potassium 4.8 Venous Blood Potassium 11/09/17 11/09/17 11/09/17 19:20 19:20 19:20 pCO2 pO2 41 HCO3 ABG pH ABG Total CO2 ABG O2 Saturation ABG Base Excess ABG Potassium VBG pH 7.37 VBG pCO2 48.0 VBG HCO3 27.7 VBG Total CO2 29.2 H VBG O2 Sat (Calc) 75.3 H VBG Base Excess 1.7 VBG Potassium 4.7 Sodium 134 133.0 Chloride 97 L 99.0 Glucose 179 H Lactate 3.9 H FiO2 21.0 Potassium 4.7 Carbon Dioxide 27 Anion Gap 15 BUN 43 H Creatinine 4.0 H Est GFR ( Amer) 18 Est GFR (Non-Af Amer) 15 POC Glucose (mg/dL) Random Glucose 165 H Calcium 8.7 Phosphorus 5.0 H Magnesium 4.1 H Ammonia < 9 L Lactate Dehydrogenase 380 Total Creatine Kinase 33 L Troponin I 0.13 H* Procalcitonin Arterial Blood Potassium Venous Blood Potassium 4.7 11/09/17 11/09/17 11/09/17 19:20 20:08 23:24 pCO2 pO2 HCO3 ABG pH ABG Total CO2 ABG O2 Saturation ABG Base Excess ABG Potassium VBG pH VBG pCO2 VBG HCO3 VBG Total CO2 VBG O2 Sat (Calc) VBG Base Excess VBG Potassium Sodium Chloride Glucose Lactate FiO2 Potassium Carbon Dioxide Anion Gap BUN Creatinine Est GFR ( Amer) Est GFR (Non-Af Amer) POC Glucose (mg/dL) 123 H 166 H Random Glucose Calcium Phosphorus Magnesium Ammonia Lactate Dehydrogenase Total Creatine Kinase Troponin I Procalcitonin 0.83 H Arterial Blood Potassium Venous Blood Potassium 11/10/17 11/10/17 11/10/17 00:15 00:15 05:49 pCO2 pO2 31 HCO3 ABG pH ABG Total CO2 ABG O2 Saturation ABG Base Excess ABG Potassium VBG pH 7.36 VBG pCO2 55.0 VBG HCO3 31.1 H VBG Total CO2 32.8 H VBG O2 Sat (Calc) 55.2 VBG Base Excess 4.2 H VBG Potassium 4.5 Sodium 133.0 Chloride 97.0 L Glucose 169 H Lactate 2.7 H FiO2 21.0 Potassium Carbon Dioxide Anion Gap BUN Creatinine Est GFR ( Amer) Est GFR (Non-Af Amer) POC Glucose (mg/dL) 136 H Random Glucose Calcium Phosphorus Magnesium Ammonia Lactate Dehydrogenase Total Creatine Kinase Troponin I 0.12 Procalcitonin Arterial Blood Potassium Venous Blood Potassium 4.5 11/10/17 06:24 pCO2 pO2 HCO3 ABG pH ABG Total CO2 ABG O2 Saturation ABG Base Excess ABG Potassium VBG pH VBG pCO2 VBG HCO3 VBG Total CO2 VBG O2 Sat (Calc) VBG Base Excess VBG Potassium Sodium Chloride Glucose Lactate FiO2 Potassium Carbon Dioxide Anion Gap BUN Creatinine Est GFR ( Amer) Est GFR (Non-Af Amer) POC Glucose (mg/dL) 134 H Random Glucose Calcium Phosphorus Magnesium Ammonia Lactate Dehydrogenase Total Creatine Kinase Troponin I Procalcitonin Arterial Blood Potassium Venous Blood Potassium Assessment & Plan - Assessment and Plan (Free Text) Plan: Assessment Acute delirium probably from hypoxia from pulmonary edema, R/O sepsis source to be determined history of right hallux osteomyelitis S/P transmetatarsal amputation S/P sepsis from HCAP, grew Klebsiella in the sputum history of 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
--- NOTE | 2017-11-10 22:34 | PN ---
DATE: 11/10/2017 LOCATION: Patient in CCU 129, bed 7. REASON FOR CONSULTATION AND FOLLOWUP: Shortness of breath, chest pain, abdominal pain, feeling weak, renal failure on dialysis, severe peripheral vascular disease, status post transmetatarsal amputation of right foot, chest pain with local tenderness on the anterior chest wall,cough. SUBJECTIVE: Patient is still complaining of chest pain, but also has local tenderness. PHYSICAL EXAMINATION: VITAL SIGNS: Blood pressure 112/44, respirations 20, afebrile, pulse is 64. HEENT: Head: Normocephalic. Eyes: Pupils normal. Conjunctivae pale. NECK: JVP low. Carotids equal. THORAX: AP diameter normal. LUNGS: No rales. CARDIOVASCULAR: S1 and S2. Patient had tenderness in the anterior chest wall pain. ABDOMEN: Soft. No organomegaly. Bowels sounds are normal. EXTREMITIES: Patient has dressing on the right foot where he has a transmetatarsal amputation of the right foot. LABORATORY DATA: WBC 10.7, hemoglobin 10.8, hematocrit 34.9, platelet 152. Sodium 136, potassium 4.7. BUN 51, creatinine 4.4. Random sugar 134. AST, ALT normal. Total protein 5.7 with an albumin of 2.9. Repeat chest x-ray on 11/10/2017, his lungs are clear. Patient's blood cultures so far are negative. DIAGNOSES: Weakness, shortness of breath, chest wall tenderness with chest wall pain, renal failure on dialysis, cardiomyopathy, four-chamber dilatation, left ventricular ejection fraction of 35%. Echo on 10/28/2016 showed ejection fraction of 35%. Stress test on 10/28/2016 showed abnormal fixed defect. CAT on 03/26/2015, medical treatment recommended, patent stent to left anterior descending, patent circumflex, status post percutaneous transluminal coronary angioplasty with drug-coated balloon in the right superficial femoral artery on 07/13/2017 and left superficial femoral artery on 08/05/2017, severe peripheral arterial disease. PLAN: Continue dialysis as per Renal. Patient on aspirin 81 mg daily, Coreg 25 b.i.d., Flomax 0.4 daily, heparin 5000 units subcu q.12 hours, Januvia 25 mg p.o. daily, cefepime 1 g q.24 hour, Prozac 20 mg once daily, Renagel 800 mg p.o. before meals, azithromycin 250 mg p.o. daily. We will follow with you. Katharina Mendez MD
--- NOTE | 2017-11-10 23:52 | PN ---
DATE: 11/10/2017 PULMONARY PROGRESS NOTE REFERRING PHYSICIAN: Dr. Marlow. SUBJECTIVE: The patient has just came back from dialysis, lying in the bed, on nasal cannula. Has a mild cough, no sputum production, no chest pain, no nausea, no vomiting, no diarrhea. Complaining of lower extremity discomfort. OBJECTIVE: GENERAL: In no acute distress. VITAL SIGNS: Temperature is 98, heart rate is 63, respiratory rate is 16, blood pressure 95/64, pulse ox 100% on nasal cannula. HEENT: Small oral cavity. Crowded airway. NECK: Supple. No JVD. LUNGS: Have a fair airflow with rhonchi. HEART: S1 and S2. ABDOMEN: Soft, nontender. No organomegaly. EXTREMITIES: Does have decreased pulses on the periphery. No edema. NEUROLOGIC: Sleepy, arousable, follows simple commands. MEDICATIONS: He is on Anusol p.r.n. basis, aspirin 81 mg daily, Coreg 25 mg twice a day, DuoNeb q. 6 hours p.r.n., Flomax 0.4 mg daily, heparin 5000 units subcu q. 12 hours, insulin coverage, Januvia 25 mg daily, cefepime 1 g IV q. 24 hours, Percocet 5/325 one tablet q. 4 hours p.r.n., Prozac 20 mg daily, Renagel 800 mg a.c., Robitussin with Codeine 5 mL q. 4 hours p.r.n., Tylenol p.r.n., Zithromax 250 mg daily. LABORATORY DATA: Shows hemoglobin 10.8, hematocrit 34.9, WBC 10.7, platelets 152. VBG showed pH 7.34, pCO2 of 54. Sodium 136, potassium 4.7, chloride 97, bicarbonate 25, BUN 51, creatinine 4.4, glucose 141, calcium 8.7, phosphorus 5.4, magnesium 4.4. AST 20, ALT 24, alkaline phosphatase is 180. Troponin is 0.11, albumin is 2.9. Microbiology: Blood culture has been negative. Chest x-ray shows no active pulmonary disease reported. IMPRESSION AND PLAN: Status post yesterday; has chronic obstructive lung disease; hypertension; diabetes; renal failure, dialysis dependent; peripheral vascular disease; multiple surgeries and amputations, much more awake, alert than yesterday. Continue bronchodilator, keep head at 45 degrees, antibiotics, gastric prophylaxis, fall precaution, sleep apnea precaution. Thank you and we will follow with you. Katharina Guan MD
[2017-11-11] MEDS: Morphine 2 mg/ml ISec IVP PRN ×2 (01:40→21:34)
[2017-11-11] MEDS: guaiFENesin-Codeine 100-10mg/5ml Syrup (5 ml) UD PO PRN ×2 (03:28→17:26)
[2017-11-11] MEDS: Cefepime 1gm in NS 100ml 1 GM/100 ML BAG IVPB SCH (06:19)
[2017-11-11] MEDS: Insulin Reg-LOW-Coverage SC SCH ×4 (08:12→17:27)
[2017-11-11 08:37] LABS: BASO # 0.01 K/mm3 (0.0-2.0); BASO % 0.1 % (0.0-3.0); GRAN # 7.72 (1.4-6.5); GRAN % 84.9 % (50.0-68.0); HEMOGLOBIN 10.4 g/dL (14.0-18.0); LYMPH # 0.6 (1.2-3.4); LYMPH % 6.3 % (22.0-35.0); MEAN CELL VOLUME 93.7 fl (80.0-105.0); MEAN CORPUSCULAR HEMOGLOBIN 28.6 pg (25.0-35.0); MEAN CORPUSCULAR HGB CONC 30.5 g/dl (31.0-37.0); MEAN PLATELET VOLUME 11.9 fl (7.0-11.0); MONO # 0.8 (0.1-0.6); MONO % 8.7 % (1.0-6.0); RBC 3.64 10^6/uL (3.5-6.1); RED CELL DISTRIBUTION WIDTH 16.9 % (11.5-14.5); WHITE BLOOD COUNT 9.1 10^3/ul (4.5-11.0)
[2017-11-11 09:15] LABS: ALBUMIN 2.8 g/dL (3.0-4.8); CALCIUM 8.6 mg/dL (8.4-10.5)
[2017-11-11] MEDS: Hydrocortisone 2.5% Rectal Cream(30 gm) PR SCH ×3 (09:20→17:28)
--- NOTE | 2017-11-11 09:24 | CP.PCM.PN ---
<[place] - Last Filed: 11/11/17 09:39> Subjective - Date & Time of Evaluation Date of Evaluation: 11/11/17 Time of Evaluation: 09:24 - Subjective Subjective: Podiatry Progress Note- Dr. Smith/Alicia 67 year old male seen and evaluated at bedside this morning with attending Dr. Vargas for evaluation of right TMA amputation site and left hallux erythematous skin changes. Patient is seen resting comfortably in bed, in NAD today, and AA0x3. Patient complains of moderate pain to his lower extremities, right worse than left. He states his breathing is a little better today. Denies F/C/N/V/CP/ SOB at time of visit. Dressing remains intact to both lower extremities Objective - Vital Signs/Intake and Output Vital Signs (last 24 hours): Temp Pulse Resp BP Pulse Ox 98.7 F 74 19 94/57 L 100 11/10/17 22:28 11/10/17 22:28 11/10/17 22:28 11/10/17 22:28 11/10/17 22:28 Intake and Output: 11/11/17 11/11/17 06:59 18:59 Intake Total 600 Balance 600 - Medications Medications: Current Medications Acetaminophen (Tylenol 325mg Tab) 325 mg PO Q4H PRN PRN Reason: Pain, Mild (1-3) Last Admin: 11/11/17 00:26 Dose: 325 mg Albuterol/Ipratropium (Duoneb 3 Mg/0.5 Mg (3 Ml) Ud) 3 ml IH [id number] PRN PRN Reason: Shortness of Breath Last Admin: 11/09/17 14:00 Dose: 3 ml Aspirin (Aspirin Chewable) 81 mg PO DAILY [facility] Last Admin: 11/11/17 09:06 Dose: 81 mg Azithromycin (Zithromax) 250 mg PO DAILY [facility] PRN Reason: Protocol Stop: 11/13/17 23:59 Last Admin: 11/11/17 09:05 Dose: 250 mg Carvedilol (Coreg) 25 mg PO BID [facility] Last Admin: 11/09/17 18:00 Dose: Not Given Fluoxetine HCl (Prozac) 20 mg PO DAILY [facility] Last Admin: 11/11/17 09:06 Dose: 20 mg Guaifenesin/Codeine Phosphate (Robitussin W/Codeine) 5 ml PO Q4H PRN PRN Reason: Cough and congestion Stop: 11/11/17 23:59 Last Admin: 11/11/17 03:28 Dose: 5 ml Heparin Sodium (Porcine) (Heparin) 5,000 units SC Q12 [facility] PRN Reason: Protocol Last Admin: 11/11/17 09:06 Dose: 5,000 units Hydrocortisone (Anusol-Hc) 0 gm CA TID [facility] Last Admin: 11/11/17 09:20 Dose: 1 applic Cefepime HCl (Maxipime 1gm) 1 gm in 100 mls @ 100 mls/hr IVPB Q24H [facility] PRN Reason: Protocol Last Admin: 11/11/17 06:19 Dose: 100 mls/hr Insulin Human Regular (Humulin R Low) 0 units SC Q6 [facility] PRN Reason: Protocol Last Admin: 11/11/17 08:16 Dose: 1 units Morphine Sulfate (Morphine) 2 mg IVP Q6H PRN PRN Reason: Pain, severe (8-10) Last Admin: 11/11/17 01:40 Dose: 2 mg Ondansetron HCl (Zofran Inj) 4 mg IVP Q4H PRN PRN Reason: Nausea/Vomiting Last Admin: 11/11/17 09:16 Dose: 4 mg Oxycodone/Acetaminophen (Percocet 5/325 Mg Tab) 1 tab PO Q4H PRN PRN Reason: Pain, severe (8-10) Stop: 11/11/17 21:11 Last Admin: 11/09/17 16:01 Dose: 1 tab Sevelamer HCl (Renagel) 800 mg PO AC [facility] Last Admin: 11/11/17 09:05 Dose: 800 mg Sitagliptin Phosphate (Januvia) 25 mg PO DAILY [facility] Last Admin: 11/09/17 10:08 Dose: 25 mg Tamsulosin HCl (Flomax) 0.4 mg PO DAILY [facility] Last Admin: 11/09/17 10:08 Dose: 0.4 mg - Labs Labs: 11/11/17 08:27 11/11/17 08:27 PT 16.4 SECONDS (9.4-12.5) H 11/08/17 16:50 INR 1.43 (0.93-1.08) H 11/08/17 16:50 APTT 32.4 Seconds (25.1-36.5) 11/08/17 16:50 - Constitutional Appears: Well, Non-toxic, No Acute Distress - Extremities Exam Additional comments: Derm: Right foot trans-metatarsal amputation amputation site noted with all sutures and cooper intact. No dehiscence noted. No necrotic skin changes noted at this time. No productive drainage or fluctuance noted. Flap site is lukewarm to touch. Color to flap WNL. No clinical signs of infection. Dorsum and distal tip of L hallux exhibits erythematous skin changes, darkening in color. No open wounds or definitive gangrenous changes noted at this time Vasc: DP and PT pulses weakly palpable graded 1/4. Temperature gradient lukewarm to cool from proximal to distal. No edema noted to lower extremity. Neuro: Gross sensation diminished Ortho: pain with palpation to surgical site of R foot; no tenderness elicited to palpation of L hallux - Neurological Exam Neurological Exam: Alert, Awake, Oriented x3 - Psychiatric Exam Psychiatric exam: Normal Affect, Normal Mood Assessment and Plan - Assessment and Plan (Free Text) Assessment: 67 year old male patient with 1) 3 weeks s/p right transmetatarsal amputation site and 2) left hallux erythematous skin changes Plan: Patient seen and evaluated at bedside with attending Dr. Vargas Chart, labs, and vitals reviewed. Afebrile, absent leukocytosis WBC 10.7 Cleansed both lower extremities with saline Dressed RLE surgical site with betadine, adaptic, and DSD Dressed L hallux with hydrogel and DSD Dressings to remain clean, dry, and intact. Do not get wet Vascular on board at this time, await further recs Will continue to monitor L hallux for signs of ischemia Patient to limit WB for transfers only with forefoot offloading shoes Upon discharge: Change dressing every 2 days: clean surgical site to R foot with saline solution, paint with betadine and dress with dsd, abd, and kerlix. Patient to follow up in wound care in [address] Smith Patient weight bearing status is limited WB for transfers only with forefoot offloading shoes. Pt to remains NWB with aid of axillary crutches majority of time Podiatry will continue to follow while in house <Dylon Vargas - Last Filed: 11/11/17 10:28> Objective - Vital Signs/Intake and Output Vital Signs (last 24 hours): Temp Pulse Resp BP Pulse Ox 97.0 F L 59 L 16 113/69 91 L 11/11/17 09:43 11/11/17 09:43 11/11/17 09:43 11/11/17 09:43 11/11/17 09:43 Intake and Output: 11/11/17 11/11/17 06:59 18:59 Intake Total 600 Balance 600 - Medications Medications: Current Medications Acetaminophen (Tylenol 325mg Tab) 325 mg PO Q4H PRN PRN Reason: Pain, Mild (1-3) Last Admin: 11/11/17 00:26 Dose: 325 mg Albuterol/Ipratropium (Duoneb 3 Mg/0.5 Mg (3 Ml) Ud) 3 ml IH [id number] PRN PRN Reason: Shortness of Breath Last Admin: 11/09/17 14:00 Dose: 3 ml Aspirin (Aspirin Chewable) 81 mg PO DAILY [facility] Last Admin: 11/11/17 09:06 Dose: 81 mg Azithromycin (Zithromax) 250 mg PO DAILY [facility] PRN Reason: Protocol Stop: 11/13/17 23:59 Last Admin: 11/11/17 09:05 Dose: 250 mg Carvedilol (Coreg) 25 mg PO BID [facility] Last Admin: 11/09/17 18:00 Dose: Not Given Fluoxetine HCl (Prozac) 20 mg PO DAILY [facility] Last Admin: 11/11/17 09:06 Dose: 20 mg Guaifenesin/Codeine Phosphate (Robitussin W/Codeine) 5 ml PO Q4H PRN PRN Reason: Cough and congestion Stop: 11/11/17 23:59 Last Admin: 11/11/17 03:28 Dose: 5 ml Heparin Sodium (Porcine) (Heparin) 5,000 units SC Q12 [facility] PRN Reason: Protocol Last Admin: 11/11/17 09:06 Dose: 5,000 units Hydrocortisone (Anusol-Hc) 0 gm CA TID [facility] Last Admin: 11/11/17 09:20 Dose: 1 applic Cefepime HCl (Maxipime 1gm) 1 gm in 100 mls @ 100 mls/hr IVPB Q24H [facility] PRN Reason: Protocol Last Admin: 11/11/17 06:19 Dose: 100 mls/hr Insulin Human Regular (Humulin R Low) 0 units SC Q6 [facility] PRN Reason: Protocol Last Admin: 11/11/17 08:16 Dose: 1 units Morphine Sulfate (Morphine) 2 mg IVP Q6H PRN PRN Reason: Pain, severe (8-10) Last Admin: 11/11/17 01:40 Dose: 2 mg Ondansetron HCl (Zofran Inj) 4 mg IVP Q4H PRN PRN Reason: Nausea/Vomiting Last Admin: 11/11/17 09:16 Dose: 4 mg Oxycodone/Acetaminophen (Percocet 5/325 Mg Tab) 1 tab PO Q4H PRN PRN Reason: Pain, severe (8-10) Stop: 11/11/17 21:11 Last Admin: 11/09/17 16:01 Dose: 1 tab Sevelamer HCl (Renagel) 800 mg PO AC [facility] Last Admin: 11/11/17 09:05 Dose: 800 mg Sitagliptin Phosphate (Januvia) 25 mg PO DAILY [facility] Last Admin: 11/09/17 10:08 Dose: 25 mg Tamsulosin HCl (Flomax) 0.4 mg PO DAILY [facility] Last Admin: 11/09/17 10:08 Dose: 0.4 mg - Labs Labs: 11/11/17 08:27 11/11/17 08:27 PT 16.4 SECONDS (9.4-12.5) H 11/08/17 16:50 INR 1.43 (0.93-1.08) H 11/08/17 16:50 APTT 32.4 Seconds (25.1-36.5) 11/08/17 16:50 Attending/Attestation - Attestation I have personally seen and examined this patient.: Yes I have fully participated in the care of the patient.: Yes I have reviewed all pertinent clinical information, including history, physical exam and plan: Yes
--- NOTE | 2017-11-11 09:46 | CARD ---
APPROVED REPORT EKG Measurement Heart [id number] NM 150P58 [id number] <Conclusion> Normal sinus rhythm Low voltage QRS limb leads PRWP STTW changes c/w ischemia Prolonged QTc No change
--- NOTE | 2017-11-11 10:00 | CARD ---
APPROVED REPORT EKG Measurement Heart [id number] CT 150P60 [id number] <Conclusion> Sinus rhythm Low voltage QRS limb leads PRWP STTW changes c/w ischemia No change
--- NOTE | 2017-11-11 10:54 | CARD ---
APPROVED REPORT EKG Measurement Heart [id number] SD 174P65 [id number] <Conclusion> Normal sinus rhythm Low voltage QRS limb leads STTW changes c/w ischemia
[2017-11-11] MEDS ORDERED: Arformoterol 15 mcg/2 ml Inh Sol IH SCH (20:00)
[2017-11-11] MEDS ORDERED: Budesonide 0.5 mg/2 ml Inhal Susp UD IH SCH (20:00)
--- NOTE | 2017-11-11 20:14 | PN ---
DATE: 11/11/2017 SUBJECTIVE: The patient is in bed, in no acute distress, nontoxic. OBJECTIVE: VITAL SIGNS: On exam, temperature is 98, blood pressure is 120/70, respiratory rate 16. HEENT: Unremarkable. NECK: Supple. LUNGS: Have decreased breath sounds. HEART: Normal S1, S2. ABDOMEN: Soft, nontender. No organomegaly, no rebound, no guarding. No masses LABORATORY EXAMINATION: Reveals a white count of 9.1, hemoglobin of 10. Chemistries are noted. Creatinine is 3.7. Review of orders reveals the patient to be on cefepime. ASSESSMENT AND PLAN: A 67-year-old male seen earlier this morning with acute delirium from hypoxemia and pulmonary edema, sepsis and end-stage renal disease, on hemodialysis, on vancomycin and cefepime, negative chest x-ray, negative blood cultures, normal white count, mildly elevated procalcitonin is 0.83 in face of creatinine of 3.7. We will follow with you. Jose Miguel Mane MD
--- NOTE | 2017-11-11 23:16 | PN ---
DATE: 11/11/2017 SUBJECTIVE: The patient has no complaints of any chest pain, no shortness of breath, no headaches. OBJECTIVE: VITAL SIGNS: Temperature is 97, pulse of 69, blood pressure 113/69, respirations 16. GENERAL: The patient is lying in bed, flat, comfortable. HEENT: No oral lesion. Anicteric sclerae. Moist mucosa. NECK: No JVD, adenopathy, or thyromegaly. CARDIOVASCULAR: S1 and S2, regular. No murmurs, rubs, or gallops. LUNGS: Clear to auscultation bilaterally. No wheeze, rales, or rhonchi. ABDOMEN: Bowel sounds are positive, soft, nontender and nondistended. EXTREMITIES: No cyanosis, clubbing or edema. LABORATORY DATA: White count 9.1, hemoglobin 10.4. Creatinine is 3.7. Chest x-ray shows no active disease. ASSESSMENT: 1. Delirium. 2. Constipation, improved. 3. End-stage renal disease, on hemodialysis. 4. Shortness of breath. 5. Hypertension. 6. Dyslipidemia. 7. Diabetes type 2. 8. Peripheral arterial disease. 9. Left arteriovenous fistula. 10. Secondary hyperparathyroidism. 11. Frailty. 12. Gait dysfunction. 13. Right tibial angioplasty with stent. 14. Ischemic cardiomyopathy with an ejection fraction of 25% to 30%. 15. Coronary artery disease. PLAN: The patient is currently comfortable. He has been followed by multiple consultants. He has blood culture and urine culture. His blood culture has been negative. His right TMA amputation site is clean and he is being followed by Podiatry. He has limited weightbearing, but he is currently nonweightbearing with the aid of majority of the time. He is going to continue with the Flomax. Continue aspirin. He is on morphine for pain. He is to continue Renagel for secondary hyperparathyroidism. hemodialysis schedule, no issues. Maurice Agarwal MD
[2017-11-11 23:22] VITALS: RESP 18; O2SAT 100
--- NOTE | 2017-11-12 00:29 | PN ---
DATE: 11/11/2017 PULMONARY PROGRESS NOTE REFERRING PHYSICIAN: Shanna Marlow MD. SUBJECTIVE: He is sitting up in a bed. Has some cough and sputum. Just had the episode of vomiting, received Zofran. No good bowel movement. No abdominal pain. Mild shortness of breath. Has a chronic leg swelling. Has a sacral ulcer. OBJECTIVE: GENERAL: No acute distress. VITAL SIGNS: Temp is 98, heart rate is 59, respiratory rate is 16, blood pressure 113/69, pulse ox 91% on room air. HEENT: Moist mucous membranes. Small oral cavity. Crowded airway. NECK: Supple. No JVD. LUNGS: Have scattered rhonchi. HEART: S1 and S2. ABDOMEN: Positive bowel sounds. Soft. EXTREMITY: Has decreased pulses. NEUROLOGICAL: Awake, alert, follows simple command. MEDICATIONS: He is on Anusol three times a day, aspirin 81 mg daily, Coreg 25 mg twice a day, DuoNeb q. 6 hours, Flomax 0.4 mg daily, heparin 5000 subcu q. 12 hours, insulin coverage, Januvia 25 mg daily, cefepime 1 g IV q. 24 hours, morphine 2 mg IV q. 6 hours p.r.n., Percocet 3/325 one tab q. 4 hours, Prozac 20 mg daily, Renagel 89 mg before meals, Robitussin with Codeine 5 mL q. 4 hours p.r.n., Tylenol p.r.n., Zithromax 250 mg daily, Zofran p.r.n. basis. LABORATORY DATA: Shows hemoglobin 10.4, hematocrit 34.1, WBC 9.1, platelet count is 173. Sodium 134, potassium 4.2, chloride 95, bicarbonate 29, BUN 46, creatinine 3.7, glucose 172, calcium 8.6, phosphorus 4.3, magnesium 4.0, AST 18, ALT 27, alk phos is 202, albumin is 2.8. Microbiology: Blood culture, urine culture, there is no growth. Chest x-ray done yesterday shows no active pulmonary infiltrate. IMPRESSION AND PLAN: Status post rapid response, chronic obstructive lung disease, hypertension, diabetes, renal failure, dialysis dependent, peripheral vascular disease, status post vomiting, may have some aspiration. Received Zofran. Continue inhaled bronchodilator. Keep head at 45 degrees. Supplement oxygen. Stool softener. Gastric prophylaxis, deep venous thrombosis prophylaxis. Sleep apnea precaution. Thank you and we will follow with you. Katharina Guan MD
[2017-11-12] MEDS: Morphine 2 mg/ml ISec IVP PRN (02:48)
[2017-11-12] MEDS: Cefepime 1gm in NS 100ml 1 GM/100 ML BAG IVPB SCH (06:01)
[2017-11-12 07:28] LABS: BASO # 0.01 K/mm3 (0.0-2.0); BASO % 0.1 % (0.0-3.0); EOS % 0.1 % (1.5-5.0); GRAN # 5.74 (1.4-6.5); GRAN % 84.2 % (50.0-68.0); LYMPH # 0.7 (1.2-3.4); LYMPH % 9.5 % (22.0-35.0); MEAN CELL VOLUME 94.4 fl (80.0-105.0); MEAN CORPUSCULAR HEMOGLOBIN 29.2 pg (25.0-35.0); MONO # 0.4 (0.1-0.6); MONO % 6.1 % (1.0-6.0); RBC 3.42 10^6/uL (3.5-6.1); RED CELL DISTRIBUTION WIDTH 16.9 % (11.5-14.5); WHITE BLOOD COUNT 6.8 10^3/ul (4.5-11.0)
[2017-11-12 07:59] LABS: ALBUMIN 2.6 g/dL (3.0-4.8); CALCIUM 8.8 mg/dL (8.4-10.5)
[2017-11-12] MEDS: Hydrocortisone 2.5% Rectal Cream(30 gm) PR SCH ×2 (09:18→14:35)
[2017-11-12 09:53] VITALS: BP 103/66; PULSE 61; TEMP 97.8
[2017-11-12] MEDS: Albuterol-Ipratrop 3 mg / 0.5 (3 ml) UD IH PRN (14:04)
--- NOTE | 2017-11-12 14:19 | CP.PCM.PN ---
<[place] - Last Filed: 11/12/17 14:22> Subjective - Date & Time of Evaluation Date of Evaluation: 11/12/17 Time of Evaluation: 13:05 - Subjective Subjective: Podiatry Progress Note- Dr. Smith/Alicia 67 year old male seen and evaluated at bedside this morning for evaluation of right TMA amputation site and left hallux erythematous skin changes. Patient is seen resting comfortably in bed, in NAD today, and AA0x3. Patient complains of moderate pain to his lower extremities, saying its the same pain to both legs , which comes and goes. He denies having any difficulty breathing today. Denies F/C/N/V/CP/SOB at time of visit. Dressing remains intact to both lower extremities Objective - Vital Signs/Intake and Output Vital Signs (last 24 hours): Temp Pulse Resp BP Pulse Ox 97.8 F 61 18 103/66 100 11/12/17 07:30 11/12/17 07:30 11/12/17 07:30 11/12/17 07:30 11/12/17 07:30 Intake and Output: 11/12/17 11/12/17 06:59 18:59 Intake Total 770 Balance 770 - Medications Medications: Current Medications Acetaminophen (Tylenol 325mg Tab) 325 mg PO Q4H PRN PRN Reason: Pain, Mild (1-3) Last Admin: 11/11/17 00:26 Dose: 325 mg Albuterol/Ipratropium (Duoneb 3 Mg/0.5 Mg (3 Ml) Ud) 3 ml IH [id number] PRN PRN Reason: Shortness of Breath Last Admin: 11/12/17 14:04 Dose: 3 ml Amoxicillin/Clavulanate Potassium (Augmentin 875 Mg-125 Mg Tab) 1 tab PO Q12 [facility] PRN Reason: Protocol Stop: 11/17/17 22:01 Arformoterol Tartrate (Brovana) 15 mcg IH [id number] [facility] Last Admin: 11/12/17 08:38 Dose: 15 mcg Aspirin (Aspirin Chewable) 81 mg PO DAILY [facility] Last Admin: 11/12/17 09:18 Dose: 81 mg Bisacodyl (Dulcolax) 10 mg RC DAILY [facility] Last Admin: 11/12/17 09:18 Dose: 10 mg Budesonide (Pulmicort Respules) 0.5 mg IH [id number] [facility] Last Admin: 11/12/17 08:38 Dose: 0.5 mg Carvedilol (Coreg) 25 mg PO BID [facility] Last Admin: 11/09/17 18:00 Dose: Not Given Fluoxetine HCl (Prozac) 20 mg PO DAILY [facility] Last Admin: 11/12/17 09:22 Dose: 20 mg Heparin Sodium (Porcine) (Heparin) 5,000 units SC Q12 [facility] PRN Reason: Protocol Last Admin: 11/12/17 09:19 Dose: 5,000 units Hydrocortisone (Anusol-Hc) [address] TID [facility] Last Admin: 11/12/17 09:18 Dose: 1 applic Insulin Human Regular (Humulin R Low) 0 units SC Q6 [facility] PRN Reason: Protocol Last Admin: 11/11/17 17:27 Dose: Not Given Morphine Sulfate (Morphine) 2 mg IVP Q6H PRN PRN Reason: Pain, severe (8-10) Last Admin: 11/12/17 02:48 Dose: 2 mg Ondansetron HCl (Zofran Inj) 4 mg IVP Q4H PRN PRN Reason: Nausea/Vomiting Last Admin: 11/11/17 17:26 Dose: 4 mg Sevelamer HCl (Renagel) 800 mg PO AC [facility] Last Admin: 11/12/17 09:31 Dose: 800 mg Sitagliptin Phosphate (Januvia) 25 mg PO DAILY [facility] Last Admin: 11/09/17 10:08 Dose: 25 mg Tamsulosin HCl (Flomax) 0.4 mg PO DAILY [facility] Last Admin: 11/09/17 10:08 Dose: 0.4 mg - Labs Labs: 11/12/17 07:00 11/12/17 07:00 PT 16.4 SECONDS (9.4-12.5) H 11/08/17 16:50 INR 1.43 (0.93-1.08) H 11/08/17 16:50 APTT 32.4 Seconds (25.1-36.5) 11/08/17 16:50 - Constitutional Appears: Well, Non-toxic, No Acute Distress - Extremities Exam Additional comments: Lower extremity focused: Derm: Right foot trans-metatarsal amputation site noted with all sutures and cooper intact. No dehiscence noted. No necrotic skin changes noted at this time. No productive drainage or fluctuance noted. Flap site is lukewarm to touch. Color to flap WNL. No clinical signs of infection. Dorsum and distal tip of L hallux exhibits erythematous skin changes, darkening in color. No open wounds or definitive gangrenous changes noted at this time Vasc: DP and PT pulses weakly palpable B/L graded 1/4. Temperature gradient lukewarm to cool from proximal to distal. No edema noted to lower extremity. Neuro: Gross sensation diminished Ortho: mild-moderate pain with palpation to surgical site of R foot; no tenderness elicited to palpation of L hallux - Neurological Exam Neurological Exam: Alert, Awake, Oriented x3 - Psychiatric Exam Psychiatric exam: Normal Affect, Normal Mood Assessment and Plan - Assessment and Plan (Free Text) Assessment: 67 year old male patient with 1) 3 weeks s/p right transmetatarsal amputation site and 2) left hallux erythematous skin changes Plan: Patient seen and evaluated at bedside Discussed with attending Dr. Smith Chart, labs, and vitals reviewed. Afebrile, absent leukocytosis WBC 6.8 Cleansed both lower extremities with saline Dressed RLE surgical site with betadine, adaptic, and DSD Dressed L hallux with hydrogel and DSD Vascular on board at this time, await further recs Will continue to monitor L hallux for signs of ischemia Patient to limit WB for transfers only with forefoot offloading shoes Upon discharge: Change dressing every 2 days: clean surgical site to R foot with saline solution, paint with betadine and dress with dsd, abd, and kerlix. Patient to follow up in wound care in [address] Smith Patient weight bearing status is limited WB for transfers only with forefoot offloading shoes. Pt to remains NWB with aid of axillary crutches majority of time Podiatry will continue to follow while in house <Caroline Smith - Last Filed: 11/12/17 16:03> Objective - Vital Signs/Intake and Output Vital Signs (last 24 hours): Temp Pulse Resp BP Pulse Ox 97.8 F 61 18 103/66 100 11/12/17 07:30 11/12/17 07:30 11/12/17 07:30 11/12/17 07:30 11/12/17 07:30 Intake and Output: 11/12/17 11/12/17 06:59 18:59 Intake Total 770 Balance 770 - Labs Labs: 11/12/17 07:00 11/12/17 07:00 PT 16.4 SECONDS (9.4-12.5) H 11/08/17 16:50 INR 1.43 (0.93-1.08) H 11/08/17 16:50 APTT 32.4 Seconds (25.1-36.5) 11/08/17 16:50 Attending/Attestation - Attestation I have personally seen and examined this patient.: Yes I have fully participated in the care of the patient.: Yes I have reviewed all pertinent clinical information, including history, physical exam and plan: Yes
[2017-11-12] MEDS: Insulin Reg-LOW-Coverage SC SCH (14:34)
--- NOTE | 2017-11-12 17:07 | PN ---
DATE: 11/12/2017 SUBJECTIVE: The patient is seen earlier this morning in room 576, bed 2. No fevers and no chills. Uneventful night. PHYSICAL EXAMINATION: VITAL SIGNS: Temperature is 97, blood pressure is 113/60, respiratory rate of 16, heart rate of 66. HEENT: Unremarkable. NECK: Supple. LUNGS: Have decreased breath sounds. HEART: Normal S1, S2. ABDOMEN: Soft, nontender. LABORATORY DATA: Reveals the white count of 6.8, hemoglobin of 10, and platelets of 160. Coagulation is noted and chemistry reveals the BUN of 46 and creatinine is 3.7. The LFT is elevated and Dr. Guan's note is reviewed. ASSESSMENT AND PLAN: A 67-year-old male with acute delirium; hypoxemia; pulmonary edema; sepsis; end-stage renal disease, on hemodialysis on vancomycin and cefepime. Negative chest x-ray. Negative blood cultures, normal white count, mildly elevated procalcitonin. We will discontinue the cefepime and Zithromax. We will treat with p.o. Augmentin. He should have an ultrasound of the gallbladder because of elevated alkaline phosphate to rule out gallbladder disease. We will write for p.o. Augmentin 875 mg p.o. b.i.d. x5 days. Case discussed with Dr. Agarwal. Jose Miguel Mane MD
--- NOTE | 2017-11-12 17:29 | PN ---
DATE: 11/12/2017 SUBJECTIVE: The patient has no complaints of any chest pain. No shortness of breath. PHYSICAL EXAMINATION: VITAL SIGNS: Temperature is 97.8, pulse of 61, blood pressure 103/66, respirations 18. GENERAL: The patient is lying in bed, flat, comfortable. HEENT: No oral lesion. Anicteric sclerae. Moist mucosa. NECK: No JVD, adenopathy, or thyromegaly. CARDIOVASCULAR: S1 and S2, regular. No murmurs, rubs, or gallops. LUNGS: Clear to auscultation bilaterally. No wheeze, rales, or rhonchi. ABDOMEN: Bowel sounds are positive, soft, nontender and nondistended. EXTREMITIES: No cyanosis, clubbing, or edema. LABORATORY DATA: White count of 6.8, hemoglobin 10. Creatinine is 4.4. ASSESSMENT: 1. End-stage renal disease, on hemodialysis. 2. Constipation, improved. 3. Delirium, improved. 4. Hypertension. 5. Diabetes type 2. 6. Peripheral arterial disease. 7. Left arteriovenous fistula. 8. Secondary hyperparathyroidism. 9. Frailty. 10. Gait dysfunction. 11. Right tibial angioplasty with stent. 12. Ischemic cardiomyopathy with ejection fraction of 25% to 30%. 13. Coronary artery disease. PLAN: The patient is currently comfortable. He is alert and awake. He is eating better. The patient had a chest x-ray that shows no active infiltrate. We will plan on discharging the patient back to [facility]. The patient currently is receiving aspirin. He is going to continue with carvedilol. He is going to be on heparin for DVT prophylaxis. He is on Januvia for his diabetes. The patient is on cefepime for antibiotics. The patient has blood cultures and urine cultures, they are negative. I will speak to ID regarding discharging with the cultures being negative. Maurice Agarwal MD
--- NOTE | 2017-11-12 19:19 | PN ---
DATE: 11/12/2017 PULMONARY PROGRESS NOTE REFERRING PHYSICIAN: Maurice Agarwal MD SUBJECTIVE: He is lying in the bed comfortably. Night was unremarkable. He did have a bowel movement. No more nausea. No vomiting. No diarrhea. Mild cough is still there. No leg swelling. OBJECTIVE: GENERAL: No acute distress. VITAL SIGNS: Temp is 98, heart rate is 64, respiratory rate is 20, blood pressure 103/66, pulse ox 100% on room air. HEENT: Moist mucous membranes. No ulcer or thrush noted. NECK: Supple. No JVD. LUNGS: Have a scattered rhonchi. HEART: S1 and S2. ABDOMEN: Soft, nontender. No organomegaly. EXTREMITY: Has decreased pulses. NEUROLOGICAL: Awake, alert, follows simple command. MEDICATIONS: Reviewed, noted no new changes in medication. LABORATORY DATA: Reviewed shows hemoglobin 10.0, hematocrit 32.3, WBC 6.8, platelet is 160. Sodium 136, potassium 4.4, chloride 96, bicarbonate 28, BUN 60, creatinine 4.4, glucose 172, calcium 8.8, phosphorus 4.1, magnesium 4.2, AST 17, ALT 25, alk phos is 185, albumin is 2.6. Microbiology: Blood culture has been negative. MRSA screening is negative. IMPRESSION AND PLAN: Chronic obstructive lung disease, hypertension, diabetes, renal failure, dialysis dependent, peripheral vascular disease. Pulmonary point of view, doing okay. Keep head at 45 degrees. Bronchodilator. Aspiration precaution. Gastric prophylaxis, deep venous thrombosis prophylaxis. Infectious Diseases followup. May just supplement oxygen if pulse ox is less than 90%. Thank you and we will follow with you. Katharina Guan MD
[2017-11-12] MEDS ORDERED: Amoxicillin-Clav 875-125 mg Tab PO SCH (22:00)
== END 2017-11-12 15:31 | DRG 291 ==
LOC: ED 15:58 → ERH 17:42 → 2RNO 22:10 → OBSVTOIN 11-09 15:58 → CCU 11-09 18:53 → 5RSO 11-10 09:17
PROVIDERS: ADMIT Internal Medicine Nephrology; ATTEND Internal Medicine Nephrology
DX: I13.2 Hypertensive heart and chronic kidney disease with heart failure and with stage 5 chronic kidney disease, or end stage renal disease (principal); N18.6 End stage renal disease; L89.152 Pressure ulcer of sacral region, stage 2; E11.22 Type 2 diabetes mellitus with diabetic chronic kidney disease; E11.51 Type 2 diabetes mellitus with diabetic peripheral angiopathy without gangrene; E11.69 Type 2 diabetes mellitus with other specified complication; E11.319 Type 2 diabetes mellitus with unspecified diabetic retinopathy without macular edema; L89.892 Pressure ulcer of other site, stage 2; N25.81 Secondary hyperparathyroidism of renal origin; Z68.1 Body mass index [BMI] 19.9 or less, adult; I50.9 Heart failure, unspecified; E78.00 Pure hypercholesterolemia, unspecified; E78.5 Hyperlipidemia, unspecified; H54.7 Unspecified visual loss; I25.10 Atherosclerotic heart disease of native coronary artery without angina pectoris; I25.5 Ischemic cardiomyopathy; J44.9 Chronic obstructive pulmonary disease, unspecified; K21.9 Gastro-esophageal reflux disease without esophagitis; K59.00 Constipation, unspecified; K62.89 Other specified diseases of anus and rectum; R09.02 Hypoxemia; Z79.4 Long term (current) use of insulin; Z87.01 Personal history of pneumonia (recurrent); Z87.891 Personal history of nicotine dependence; Z89.411 Acquired absence of right great toe; Z95.5 Presence of coronary angioplasty implant and graft; Z99.2 Dependence on renal dialysis; D64.9 Anemia, unspecified; R26.9 Unspecified abnormalities of gait and mobility; F32.89 Other specified depressive episodes; Z89.431 Acquired absence of right foot; Z86.19 Personal history of other infectious and parasitic diseases; R41.0 Disorientation, unspecified